=== PATIENT | male | born 1945 | race Caucasian/White ===

== ENCOUNTER 2019-12-11 23:04 | Emergency (ER) | payer OTHER, MEDICARE, SELFPAY ==
[2019-12-11 23:08] VITALS: BP 169/104; PULSE 82; RESP 20; TEMP 36.3; O2SAT 96; BMI 42.5
--- NOTE | 2019-12-11 23:42 | W.ED.EXTPRO ---
HPI - Extremity Problem General: Chief complaint: Extremity Problem,Nontraumatic Stated complaint: right leg pain Time Seen by Provider: 12/11/19 23:41 History of Present Illness: HPI Narrative: Patient is a 74-year-old male who comes into the ED with right calf pain and swelling. Patient has a past medical history of A. fib, diabetes, hypertension, hypothyroidism and and hypercholesteremia. Right calf pain and swelling started tonight. He says that the pain is just gotten worse in his right calf and the swelling has gotten worse. Patient describes his right calf is been really tight feeling. Patient does take Xarelto for A. fib. He does not have any history of DVTs or PE. Denies any recent injury or fall to cause any right leg pain. He denies any acute shortness of breath, but says chronically he has had some shortness of breath on exertion. Patient also states that he recently was diagnosed with a UTI and is currently taking Bactrim for his UTI. Associated symptoms: Deny chest pain, fever(s) or rash Review of Systems Const: Denies: fever, chills or fatigue Eyes: Denies: change in vision or eye discomfort ENMT: Denies: throat pain, painful swallowing, nasal discharge or nasal congestion Card: Reports: irregular heart rhythm and shortness of breath on exertion (chronic issue, no acute change.); Denies: chest pain, palpitations, edema, swelling of feet/ankles or shortness of breath when lying down Resp: Denies: shortness of breath, productive cough or non-productive cough GI: Denies: abdominal pain, nausea, vomiting, diarrhea, constipation or blood in stool : Reports: blood in urine (started about 3 days ago-currently taking bactrim for UTI.); Denies: flank pain, difficulty urinating or painful urination Musc: Reports: extremity pain (Right calf) and extremity swelling (right calf); Denies: neck pain or back pain Skin/Breast: Denies: rash or new lesion Neuro: Denies: headache, numbness in extremities or weakness in extremities PFS ED PFSH: Social History Smoking and tobacco status: never smoked Physical Exam Narrative: EXAM NARRATIVE: Patient is a 74-year-old male who is sitting comfortably in exam bed when I enter the room. He is showing no acute signs of distress or pain. Const: COMMON NORMALS: oriented x3 HENMT: COMMON NORMALS: normocephalic HEAD & SCALP: normocephalic MOUTH: oral and palatal mucosa normal THROAT: posterior oropharynx normal and uvula midline Neck/C-Spine: COMMON NORMALS: supple GENERAL: Yes normal visual inspection Resp: COMMON NORMALS: normal respiratory effort, no retractions, no use of accessory muscles and clear to auscultation bilaterally AUSCULTATION: clear to auscultation bilaterally Cardio: COMMON NORMALS: regular rate, S1 normal heart sound, S2 normal heart sound, no gallops, no clicks and no murmurs RATE: regular rate RHYTHM: abnormal rhythm irregularly irregular HEART SOUNDS: S1 normal and S2 normal PERIPHERAL PULSES: radial pulses present and posterior tibial pulses present positive right 1+ GI: COMMON NORMALS: normal to inspection, nondistended, normoactive bowel sounds, soft to palpation, non-tender and no masses PALPATION: Yes soft : COMMON NORMALS: Yes no CVA tenderness BLADDER/KIDNEY EXAM: Yes no CVA tenderness Back/Pelvis: COMMON NORMALS: no CVA tenderness Extremity: RIGHT LOWER EXTREMITY: Yes lower leg (1+ pitting edema starting around ankle and going up to mid calf) Right lower leg: Yes inspection (swelling around calf), Yes palpation (tender around calf) and Yes neurovascular exam (intact. posterior tibial pulse 1+) OTHER: Patient's right calf muscle is tight and tense and firm. Neuro: COMMON NORMALS: oriented x3 and moves all extremities Skin: COMMON NORMALS: no rashes or lesions noted GENERAL SKIN EXAM: no rashes or lesions noted and dry skin Course Vital Signs: Vital signs: Vital Signs Temperature 97.4 F L 12/11/19 23:08 Pulse Rate 70 12/12/19 01:48 Respiratory Rate 20 H 12/11/19 23:08 Blood Pressure 144/95 12/12/19 01:48 Pulse Oximetry 94 12/12/19 01:48 MDM - Extremity (Nontraumatic) MDM Narrative: Medical decision making narrative: Patient is a 74-year-old male who comes into the ED with right calf pain and swelling. Ultrasound venous duplex of the right leg was performed and showed no DVT or blood clots. Physical exam showed very firm and tight calf muscle. Patient was diagnosed with a muscle cramp and was given Norflex while here in the ED. He was discharged and told to stretch calf muscle daily and to put ice on right calf to help with swelling and pain. Patient was also told to drink fluids and stay hydrated. He was told to follow-up with PCP in 5 to 7 days for reevaluation. Patient understood with and agreed with plan. Imaging Data^: US Vascular: Attestation: I personally reviewed and interpreted this imaging study as follows: Radiologist's impression: Prelim report?no DVTs or blood clots seen. All veins are compressible and patent Discharge Plan Discharge Patient Disposition: Home, Self-Care Clinical Impression: Cramp in muscle Condition: Stable Prescriptions: No Action Synthroid 137 mcg Tablet 137 mcg PO DAILY RF: 0 metoprolol tartrate 100 mg Tablet 100 mg PO BID RF: 0 Bactrim DS 800-160 mg Tablet 1 tab PO BID RF: 0 simvastatin 40 mg Tablet 40 mg PO DAILY RF: 0 modafinil 200 mg Tablet 200 mg PO DAILY RF: 0 amiodarone 400 mg Tablet 400 mg PO BID RF: 0 tamsulosin 0.4 mg Capsule 0.4 mg PO DAILY RF: 0 pantoprazole 40 mg Tablet,Delayed Release (Dr/Ec) 40 mg PO BID RF: 0 Vitamin D3 50 mcg (2,000 unit) Capsule 2,000 unit PO DAILY RF: 0 Xarelto 20 mg Tablet 20 mg PO DAILY RF: 0 Ozempic 1 mg/dose (2 mg/1.5 mL) Pen Injector 1 mg SUBCUT DIRECTED RF: 0 Discharge Orders: Discharge Order (Routine); Ordered 12/12/19 Ordered By: Colin Henderson Referrals: Emil Oliveira DO [Primary Care Provider] - Discharge Diet: Regular Discharge Activity: Increase activity as tolerated Patient Instructions: Muscle Cramp (ED) Activity Restrictions/Additional Instructions: Follow-up with your PCP in 7 days for reevaluation. Apply ice on your right calf and/or heat to help with discomfort. Stretch out calf muscles throughout the day. Drink plenty of fluids and stay hydrated. You can also take any ibuprofen or naproxen to help with any pain and inflammation. Discharge Date/Time: 12/12/19 02:06 Coding Level of Care Code ED Pot Press Operator for Matt Fwmartell Exam Comprehensive
--- NOTE | 2019-12-11 23:47 | PC.NURSE ---
Right Calf - 17.5 inches; Left Calf 16.5 inches
[2019-12-12] MEDS: orphenadrine 30 mg/mL Inj 2 mL 60 MG IM (01:43)
[2019-12-12 01:48] VITALS: BP 144/95; PULSE 70; O2SAT 94
== END 2019-12-12 02:06 | disposition home or self-care (01) ==
PROVIDERS: Emergency Provider Physician Assistant; Family Provider Emergency Medicine Emergency Medical Services; PCP Emergency Medicine Emergency Medical Services
DX: R25.2 Cramp and spasm (principal); I48.91 Unspecified atrial fibrillation; E11.9 Type 2 diabetes mellitus without complications; I10 Essential (primary) hypertension; E03.9 Hypothyroidism, unspecified; E78.00 Pure hypercholesterolemia, unspecified; Z79.01 Long term (current) use of anticoagulants
CPT/HCPCS: 12345; 96372; 99281; 99283; J2360

== ENCOUNTER 2020-03-12 11:16 | Outpatient (CLI) | payer OTHER, MEDICARE, SELFPAY ==
--- NOTE | 2020-03-12 11:26 | US_ITS ---
WS: [id number] RENAL ULTRASOUND HISTORY: CHRONIC KIDNEY DZ STAGE 3 COMPARISON: None available. TECHNIQUE: 2-D and color Doppler imaging of the kidney submitted. Right kidney: 13.5 cm x 6.2 cm x 5.7 cm. Normal size kidney. Normal renal cortex. Cortical cyst with a maximum diameter of 1.8 cm in the mid t o inferior kidney. No hydronephrosis. Left kidney: 13.6 cm x 7.2 cm x 5.2 cm. Normal size kidney and echogenicity. Simple cyst from the superior pole measures 5.7 x 3.2 x 5.3 cm. Simple cyst from the inferior kidney measures 5.3 x 4.8 x 5.1 cm. There is a small solid exophytic no dule from the mid kidney measuring 2.5 x 2.5 x 2.6 cm. Aorta: Normal. Urinary Bladder: Urinary bladder is minimally distended. There is a linear line to the bladder which may be related to the patient's prostate implant. US/US renal BI* [id number] IMPRESSION: 1. No hydronephrosis or renal obstruction. 2. LEFT renal cysts. 3. Indeterminate for soft tissue mass from the mid LEFT kidney measuring 2.5 x 2.5 x 2.6 cm. Consider follow-up renal mass CT protocol for further evaluation .
== END 2020-03-12 11:17 | disposition home or self-care (01) ==
LOC: RAD 11:22
PROVIDERS: PCP Emergency Medicine Emergency Medical Services; Visit Provider Registered Nurse
DX: N18.3 Chronic kidney disease, stage 3 (moderate) (principal); Q61.02 Congenital multiple renal cysts; N28.89 Other specified disorders of kidney and ureter
CPT/HCPCS: 76770

== ENCOUNTER 2020-04-22 18:26 | Emergency (ER) | payer MEDICARE, OTHER, SELFPAY ==
[2020-04-22 18:33] VITALS: BP 139/95; PULSE 83; RESP 16; TEMP 36.4; O2SAT 95; BMI 45.6
--- NOTE | 2020-04-22 18:43 | ED_ITS ---
HPI - Extremity Problem General: Chief complaint: Extremity Injury, Lower Stated complaint: R foot/ankle injury Time Seen by Provider: 04/22/20 18:43 History of Present Illness: HPI Narrative: Patient is a 74-year-old male who comes to the ED with right foot/ankle pain and left hand pain. Injury occurred on Thursday, when patient was walking down a hill and rolled his right foot and ankle causing him go down to the ground and he caught himself with his left hand. He currently rates his right foot and ankle pain an 8 out of 10. He also has some pain in his third digit of left hand. Patient has been taking Tylenol and ibuprofen to help with pain, but it has been helped minimally. He has also iced and elevated his right foot as well. He endorses having pain with any weightbearing Associated symptoms: Deny chest pain, fever(s) or rash Review of Systems Const: Denies: fever(s), chills or fatigue Eyes: Denies: change in vision or eye discomfort ENMT: Denies: throat pain, odynophagia, nasal discharge or nasal congestion Card: Denies: chest pain, palpitations, edema, swelling of feet/ankles, dyspnea on exertion or orthopnea Resp: Denies: dyspnea, productive cough or non-productive cough GI: Denies: abdominal pain, nausea, vomiting, diarrhea, constipation or hematochezia : Denies: flank pain, difficulty urinating, dysuria or hematuria Musc: Reports: extremity pain (Left hand and Right foot and ankle) and extremity swelling (Left hand and right foot/ankle.); Denies: neck pain or back pain Skin/Breast: Denies: rash or new lesions Neuro: Denies: headache(s), numbness in extremities or weakness in extremities [facility] PFSH: Social History Smoking and tobacco status: never smoked Alcohol intake: never Substance/Drug Use: never Physical Exam Const: COMMON NORMALS: no acute distress, patient oriented x3 and alert GENERAL APPEARANCE: cooperative and comfortable NUTRITIONAL APPEARANCE: overweight HENMT: COMMON NORMALS: normocephalic HEAD & SCALP: normocephalic MOUTH: Normal oral and palatal mucosa present THROAT: posterior oropharynx normal and uvula midline Neck/C-Spine: COMMON NORMALS: supple GENERAL: Yes normal visual inspection Resp: COMMON NORMALS: normal respiratory effort, No retractions, No use of accessory muscles and clear to auscultation bilaterally AUSCULTATION: clear to auscultation bilaterally Cardio: COMMON NORMALS: regular rate, regular rhythm, S1 normal heart sound present, S2 normal heart sound present, No gallops present (Cardio), No clicks present (Cardio), No murmurs present (Cardio) and Peripheral pulses 2+ throughout RATE: regular rate RHYTHM: regular rhythm HEART SOUNDS: S1 normal heart sound present and S2 normal heart sound present PERIPHERAL PULSES: Peripheral pulses 2+ throughout GI: COMMON NORMALS: Normal to inspection, nondistended, normoactive bowel sounds present, Soft to palpation, non-tender and no masses PALPATION: Yes Soft to palpation : COMMON NORMALS: Yes no CVA tenderness BLADDER/KIDNEY EXAM: Yes no CVA tenderness Back/Pelvis: COMMON NORMALS: no CVA tenderness Extremity: LEFT UPPER EXTREMITY: Yes hand & digits Left hand and digits: Yes inspection (Mild swelling at DIP joint of third digit. ), Yes palpation (Tender at DIP joint of third digit.), Yes ROM (Limited due to pain) and Yes neurovascular exam (Intact) RIGHT LOWER EXTREMITY: Yes foot & digits Right ankle: Yes inspection (No visible deformity but swelling and ecchymosis seen around both lateral and medial sides of the ankle.), Yes palpation (Mild tenderness on the lateral aspect of ankle.), Yes ROM (Limited due to pain) and Yes neurovascular exam (Intact) and Yes foot & digits Right foot and digits: Yes inspection (Swelling and ecchymosis around the midfoot.), Yes palpation (Tenderness upon palpation over midfoot.) and Yes neurovascular exam (Intact) Neuro: COMMON NORMALS: patient oriented x3 and moves all extremities SENSORIUM/ORIENTATION: Yes alert Skin: COMMON NORMALS: no rashes or lesions noted GENERAL SKIN EXAM: no rashes or lesions noted and dry skin Course Vital Signs: Vital signs: Vital Signs Temperature 97.6 F 04/22/20 18:33 Pulse Rate 81 04/22/20 20:20 Respiratory Rate 16 04/22/20 20:20 Blood Pressure 143/96 04/22/20 20:20 Pulse Oximetry 94 04/22/20 20:20 MDM - Extremity (Nontraumatic) MDM Narrative: Medical decision making narrative: Patient is a 74-year-old male who comes to the ED with right foot and ankle pain and left hand pain. Exam showed swelling in the right foot and tenderness upon palpation of the lateral and medial aspect of ankle and foot. Patient had tenderness of DIP joint and third digit of left hand. X-ray of left hand showed no acute fractures or findings pending final radiology report. X-ray of right ankle and foot showed distal fibula fracture nondisplaced and medial malleolus tibial fracture nondisplaced. Patient was put in a posterior leg splint with stirrups. He was given crutches and a prescription for hydrocodone for pain. Referral to Ortho was placed with case management. Patient told to [id number] and to follow-up with Ortho at future future scheduled appointment. Return to ED if symptoms worsen. Patient understood and agreed with plan. Imaging Data^: Xray Ortho: Attestation: I personally reviewed and interpreted this imaging study as follows: My impression: Left hand x-ray showed no acute fractures or findings. Right foot and ankle x-ray showed distal fibula fracture nondisplaced and nondisplaced medial malleolus fracture of tibia. Discharge Plan Discharge Patient Disposition: Home, Self-Care Clinical Impression: Fracture of distal end of right fibula Qualifiers: Encounter type: initial encounter Fracture type: closed Fracture morphology: other fracture Qualified Code(s): S82.831A - Other fracture of upper and lower end of right fibula, initial encounter for closed fracture Fracture of medial malleolus of right tibia Qualifiers: Encounter type: initial encounter Fracture type: closed Fracture alignment: nondisplaced Qualified Code(s): S82.54XA - Nondisplaced fracture of medial malleolus of right tibia, initial encounter for closed fracture Condition: Stable Prescriptions: No Action Synthroid 137 mcg Tablet 137 mcg PO DAILY RF: 0 metoprolol tartrate 100 mg Tablet 100 mg PO BID RF: 0 Bactrim DS 800-160 mg Tablet 1 tab PO BID RF: 0 simvastatin 40 mg Tablet 40 mg PO DAILY RF: 0 modafinil 200 mg Tablet 200 mg PO DAILY RF: 0 amiodarone 400 mg Tablet 400 mg PO BID RF: 0 tamsulosin 0.4 mg Capsule 0.4 mg PO DAILY RF: 0 pantoprazole 40 mg Tablet,Delayed Release (Dr/Ec) 40 mg PO BID RF: 0 Vitamin D3 50 mcg (2,000 unit) Capsule 2,000 unit PO DAILY RF: 0 Xarelto 20 mg Tablet 20 mg PO DAILY RF: 0 Ozempic 1 mg/dose (2 mg/1.5 mL) Pen Injector 1 mg SUBCUT DIRECTED RF: 0 Discharge Orders: Discharge Order (Routine); Ordered 04/22/20 Ordered By: Colin Henderson Referrals: Emil Oliveira DO [Primary Care Provider] - Discharge Diet: Regular Discharge Activity: Limit activity as instructed and Use walker/crutches as instructed Patient Instructions: Ankle Fracture (ED) Activity Restrictions/Additional Instructions: Follow-up with medical provider as directed. Case management should be contacting you in the next several days to set up an appointment with specialist for further evaluation. Take pain medications as prescribed. No weightbearing and use crutches to help with ambulation. Rest, ice and elevate right ankle. Return to the ER or your medical provider if condition worsens. Please read and understand discharge instructions. If any questions, please ask. Discharge Date/Time: 04/22/20 20:00 Coding Level of Care Code ED Retail Service Specialist for Matt 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
[2020-04-22 18:48] VITALS: BP 142/96; PULSE 83; RESP 20; O2SAT 95
--- NOTE | 2020-04-22 18:48 | XRR_ITS ---
PROCEDURE INFORMATION: Exam: XR Right Foot Complete Exam date and time: 04/22/2020 6:50 PM Age: 74 years old Clinical indication: Injury or trauma; Fall; Initial encounter; Blunt trauma; Foot; Right; Additional info: Injury with swelling and pain TECHNIQUE: Imaging protocol: XR Right foot. Views: 3 or more views. COMPARISON: No relevant prior studies available. FINDINGS: Bones/joints: Small calcaneus spur. The bones are intact and in normal alignment. Mild degenerative changes. Soft tissues: Mild dorsal soft tissue swelling. Vasculature: Vascular calcifications. XR/XR foot RT min 3V* [id number] IMPRESSION: No fracture or acute finding.
--- NOTE | 2020-04-22 18:48 | XRR_ITS ---
PROCEDURE INFORMATION: Exam: XR Left Hand Exam date and time: 04/22/2020 6:50 PM Age: 74 years old Clinical indication: Injury or trauma; Fall; Initial encounter; Blunt trauma (contusions or hematomas; Left; Middle finger; Additional info: Injury with swelling and tenderness 3rd digit TECHNIQUE: Imaging protocol: XR Left hand. Views: 3 or more views. COMPARISON: No relevant prior studies available. FINDINGS: Bones/joints: The bones are intact and in normal alignment. Degenerative changes involving the radiocarpal, 1st carpometacarpal, 1st metacarpophalangeal, and all interphalangeal joints. Soft tissues: Normal. XR/XR hand LT min 3V* [id number] IMPRESSION: 1. No fracture or acute finding. 2. Osteoarthritis.
--- NOTE | 2020-04-22 18:48 | XRR_ITS ---
PROCEDURE INFORMATION: Exam: XR Right Ankle Exam date and time: 04/22/2020 6:50 PM Age: 74 years old Clinical indication: Injury or trauma; Fall; Initial encounter; Blunt trauma; Ankle; Right; Additional info: Injury with swelling and tenderness. TECHNIQUE: Imaging protocol: XR Right ankle. Views: 3 or more views. COMPARISON: No relevant prior studies available. FINDINGS: Bones/joints: Oblique mildly displaced fracture through the distal diaphysis of the right fibula. Mildly displaced transverse fracture through the medial malleolus. Soft tissues: Circumferential soft tissue swelling. Vasculature: Vascular calcifications. XR/XR ankle RT min 3V* [id number] IMPRESSION: 1. Bimalleolar right ankle fracture.
[2020-04-22] MEDS: HYDROcodone-acetaminophen 7.5-325 mg Tablet 1 TAB PO ×2 (18:54→20:15)
[2020-04-22 19:34] VITALS: BP 139/95; PULSE 87; RESP 16; O2SAT 95
[2020-04-22 20:20] VITALS: BP 143/96; PULSE 81; RESP 16; O2SAT 94
--- NOTE | 2020-04-23 08:43 | DCPLANNER ---
it infrastructure manager had message to schedule a follow up appointment for patient with ortho. it infrastructure manager called the ortho clinic, spoke with Nadia, gave clinic patients information. it infrastructure manager was told that patients information would be printed and reviewed. Clinic will call patient with appointment information.
--- NOTE | 2020-04-24 12:18 | DCPLANNER ---
Patient had a follow up appointment scheduled for 04.24.20 with ortho. Patient did attend the appointment.
== END 2020-04-22 20:00 | disposition home or self-care (01) ==
PROVIDERS: Emergency Provider Physician Assistant; PCP Emergency Medicine Emergency Medical Services
DX: S82.54XA Nondisplaced fracture of medial malleolus of right tibia, initial encounter for closed fracture (principal); S82.831A Other fracture of upper and lower end of right fibula, initial encounter for closed fracture; X50.1XXA Overexertion from prolonged static or awkward postures, initial encounter
CPT/HCPCS: 12345; 73130; 73610; 73630; 99282; 99283; E0114

== ENCOUNTER → 2020-04-24 08:31 | Outpatient (BNVA) | payer MEDICARE, OTHER, SELFPAY | PROVIDERS: PCP Emergency Medicine Emergency Medical Services; Referring Provider Physician Assistant; Visit Provider Podiatrist Foot & Ankle Surgery | DX: S82.54XA Nondisplaced fracture of medial malleolus of right tibia, initial encounter for closed fracture (principal); S82.831A Other fracture of upper and lower end of right fibula, initial encounter for closed fracture; W17.81XA Fall down embankment (hill), initial encounter; M17.11 Unilateral primary osteoarthritis, right knee | CPT/HCPCS: 73590; 73610 ==

== ENCOUNTER 2020-04-24 10:41 | Outpatient (CLI) | payer MEDICARE, OTHER, SELFPAY | END 2020-04-24 10:42 | disposition home or self-care (01) | LOC: SPT 10:42 | PROVIDERS: PCP Emergency Medicine Emergency Medical Services; Visit Provider Podiatrist Foot & Ankle Surgery | DX: Z47.89 Encounter for other orthopedic aftercare (principal); S82.54XD Nondisplaced fracture of medial malleolus of right tibia, subsequent encounter for closed fracture with routine healing; S82.831D Other fracture of upper and lower end of right fibula, subsequent encounter for closed fracture with routine healing; X58.XXXD Exposure to other specified factors, subsequent encounter; S82.54XA Nondisplaced fracture of medial malleolus of right tibia, initial encounter for closed fracture; S82.831A Other fracture of upper and lower end of right fibula, initial encounter for closed fracture; W17.81XA Fall down embankment (hill), initial encounter; M17.11 Unilateral primary osteoarthritis, right knee | CPT/HCPCS: 73590; 73610; 97760; L4361 ==

== ENCOUNTER → 2020-05-07 08:03 | Outpatient (BNVA) | payer MEDICARE, OTHER, SELFPAY | PROVIDERS: PCP Emergency Medicine Emergency Medical Services; Visit Provider Podiatrist Foot & Ankle Surgery | DX: S82.54XA Nondisplaced fracture of medial malleolus of right tibia, initial encounter for closed fracture (principal); S82.831A Other fracture of upper and lower end of right fibula, initial encounter for closed fracture; X58.XXXA Exposure to other specified factors, initial encounter | CPT/HCPCS: 73610 ==

== ENCOUNTER 2020-05-08 12:25 | Outpatient (CLI) | payer MEDICARE, OTHER, SELFPAY ==
--- NOTE | 2020-05-08 12:30 | CT_ITS ---
WS: [id number] CT ABDOMEN TECHNIQUE: Noncontrast CT of the abdomen with coronal and sagittal reformatted images. CLINICAL INFORMATION: CKD STAGE 3, ABNORMAL US COMPARISON: None. DLP: 866.[address] scans at [facility] use at least one of these dose optimization techniques: automat ed exposure control; mA and/or kV adjustment per patient size (includes targeted exams where dose is matched to clinical indication); or iterative reconstruction. FINDINGS: Noncontrast liver is normal. A few low-attenuation lesions in the liver some too small to characteriz e but likely represent hepatic cysts. Gallbladder is contracted. Normal GE junction. Slight atelectas is in the lung bases. Adrenal glands are normal. Left renal cysts measuring 5.2 x 5.7 CM upper pole a nd 4.3 x 4.2 cm lower pole. No hydronephrosis in either kidney. Additional exophytic lesion mid pole measuring 1.7 x 2.1 cm corresponds to the ultrasound findings with Hounsfield units indicating renal cyst. Fatty atrophy of the pancreas. Normal caliber abdominal aorta. Aortic calcification. Fat-containing umbilical hernia. No herniated f at. 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 CT/CT abdomen wo con [id number] IMPRESSION: 1. Left upper pole and lower pole renal cysts measuring 5.2 x 5.7 cm and 4.2 x 4.3 cm. 2. Exophytic lesion mid pole left kidney appears to represent renal cyst corre sponding to the ultrasound lesion. 3. Low-attenuation lesions in the liver too small to characterize and likely r epresent hepatic cysts. 4. No hydronephrosis in either kidney.Bilateral renal cortical atrophy. 5. Fat-containing umbilical hernia. 6. 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
== END 2020-05-08 12:26 | disposition home or self-care (01) ==
LOC: RADWPI 12:29
PROVIDERS: PCP Emergency Medicine Emergency Medical Services; Visit Provider Internal Medicine Nephrology
DX: N18.3 Chronic kidney disease, stage 3 (moderate) (principal); R93.89 Abnormal findings on diagnostic imaging of other specified body structures; N28.1 Cyst of kidney, acquired; K42.9 Umbilical hernia without obstruction or gangrene; N28.9 Disorder of kidney and ureter, unspecified; M47.817 Spondylosis without myelopathy or radiculopathy, lumbosacral region; N26.1 Atrophy of kidney (terminal)
CPT/HCPCS: 74150

== ENCOUNTER → 2020-05-21 15:48 | Outpatient (BNVA) | payer MEDICARE, OTHER, SELFPAY | PROVIDERS: PCP Emergency Medicine Emergency Medical Services; Visit Provider Podiatrist Foot & Ankle Surgery | DX: S82.54XA Nondisplaced fracture of medial malleolus of right tibia, initial encounter for closed fracture (principal); S82.831A Other fracture of upper and lower end of right fibula, initial encounter for closed fracture; X58.XXXA Exposure to other specified factors, initial encounter | CPT/HCPCS: 73610 ==

== ENCOUNTER → 2020-06-06 08:10 | Outpatient (BNVA) | payer MEDICARE, OTHER, SELFPAY | PROVIDERS: PCP Emergency Medicine Emergency Medical Services; Visit Provider Podiatrist Foot & Ankle Surgery | DX: S82.831D Other fracture of upper and lower end of right fibula, subsequent encounter for closed fracture with routine healing (principal); X58.XXXD Exposure to other specified factors, subsequent encounter; Z46.89 Encounter for fitting and adjustment of other specified devices | CPT/HCPCS: 73610; 97760; L1902 ==

== ENCOUNTER 2020-06-06 09:28 | Outpatient (CLI) | payer MEDICARE, OTHER, SELFPAY | END 2020-06-06 09:29 | disposition home or self-care (01) | LOC: SPT 09:29 | PROVIDERS: PCP Emergency Medicine Emergency Medical Services; Visit Provider Podiatrist Foot & Ankle Surgery | DX: Z46.89 Encounter for fitting and adjustment of other specified devices (principal); S82.831D Other fracture of upper and lower end of right fibula, subsequent encounter for closed fracture with routine healing; X58.XXXD Exposure to other specified factors, subsequent encounter | CPT/HCPCS: 97760; L1902 ==

== ENCOUNTER → 2020-07-04 11:29 | Outpatient (BNVA) | payer MEDICARE, OTHER, SELFPAY | PROVIDERS: PCP Emergency Medicine Emergency Medical Services; Visit Provider Podiatrist Foot & Ankle Surgery | DX: S82.54XA Nondisplaced fracture of medial malleolus of right tibia, initial encounter for closed fracture (principal); S82.831A Other fracture of upper and lower end of right fibula, initial encounter for closed fracture; M79.604 Pain in right leg; S82.831D Other fracture of upper and lower end of right fibula, subsequent encounter for closed fracture with routine healing | CPT/HCPCS: 73610 ==

== ENCOUNTER → 2020-07-17 16:05 | Outpatient (BNVA) | payer OTHER, MEDICARE, SELFPAY | PROVIDERS: PCP Emergency Medicine Emergency Medical Services; Visit Provider Internal Medicine Cardiovascular Disease | DX: R06.02 Shortness of breath (principal); Z79.01 Long term (current) use of anticoagulants; E03.9 Hypothyroidism, unspecified; N18.9 Chronic kidney disease, unspecified | CPT/HCPCS: 80048; 83880; 84443; 85025 ==

== ENCOUNTER 2020-08-14 06:45 | Outpatient (CLI) | payer OTHER, SELFPAY ==
--- NOTE | 2020-08-14 07:15 | USCV_ITS ---
Raoul Lupillo Age: 74 Gender: M : 1945 Exam Date: 08/14/2020 06:47 Ordering Phys: Jaylyn Chase MD ([email or web address]) Technologist: Juarez Bravo Exam Location: [facility] – [place], [place] Indication: CHF BP: / HR: 81 Rhythm: Sinus Technical Quality: Fair MEASUREMENTS (Male / Female) Normal Values 2D ECHO LV Diastolic Diameter PLAX 5.0 cm 4.2 - 5.9 / 3.9 - 5.3 cm LV Systolic Diameter PLAX 2.9 cm IVS Diastolic Thickness 1.3 cm 0.6 - 1.0 / 0.6 - 0.9 cm IVS Systolic Thickness 1.6 cm LVPW Diastolic Thickness 1.2 cm 0.6 - 1.0 / 0.6 - 0.9 cm LVPW Systolic Thickness 1.6 cm LVOT Diameter 3.0 cm LV Ejection Fraction 2D Teich 72.6 % LV Ejection Fraction MOD 2C 57.2 % LV Ejection Fraction 2C AL 58.1 % LA Diameter 5.8 cm LA Width 5.5 cm LA Height 7.1 cm RA Width 5.5 cm RA Height 5.6 cm M-MODE LV Diastolic Diameter MM 7.6 cm 4.2 - 5.9 / 3.9 - 5.3 cm LV Systolic Diameter MM 5.3 cm LV Ejection Fraction MM Teich 55.6 % IVS Diastolic Thickness MM 1.5 cm 0.6 - 1.0 / 0.6 - 0.9 cm IVS Systolic Thickness MM 1.8 cm LVPW Diastolic Thickness MM 1.6 cm 0.6 - 1.0 / 0.6 - 0.9 cm LVPW Systolic Thickness MM 2.4 cm RV Diastolic Diameter MM 2.5 cm Aortic Annulus Diameter 4.3 cm LA Ao Ratio MM 1.5 MV E Point Septal Separation 2.4 cm DOPPLER AV Peak Velocity 119.0 cm/s LVOT Peak Velocity 82.0 cm/s AV Area Cont Eq vti 3.7 cm squared AV Area Cont Eq pk 5.0 cm squared MV Area PHT 5.0 cm squared Mitral E to A Ratio 1.9 MV E' Velocity 56.5 cm/s Mitral E to MV E' Ratio 11.0 Mitral E to LV E' Lateral Ratio 11.2 Mitral E to LV E' Septal Ratio 11.0 TR Peak Velocity 191.0 cm/s TR Peak Gradient 14.6 mmHg TV Peak E Velocity 78.0 cm/s Right Atrial Pressure 3.0 mmHg Pulmonary Artery Systolic Pressu 17.6 mmHg PV Peak Velocity 111.0 cm/s FINDINGS Left Ventricle Normal left ventricular size with a slightly diminished ejection fraction of 50%. Mild diffuse hypokinesia left ventricle. Right Ventricle Normal right ventricular size and systolic function. Right Atrium Mildly increased right atrial size. Left Atrium Mildly increased left atrial size. Mild biatrial enlargement Mitral Valve Thickened mitral valve. Trace mitral valve regurgitation. Aortic Valve Thickened aortic valve. Mild aortic valve regurgitation. Tricuspid Valve No gross abnormalities noted Pulmonic Valve Pulmonic valve not well visualized. Pericardium No pericardial effusion. Aorta Normal aortic annulus size. CONCLUSIONS Normal left ventricular size with a slightly diminished ejection fraction of 50%. Mild diffuse hypokinesia left ventricle. Thickened mitral valve. Trace mitral valve regurgitation. Thickened aortic valve. Mild aortic valve regurgitation. Mild biatrial enlargement Estimated pulmonary artery peak systolic pressure of 18 mmHg There is no pericardial effusion. There are no intracardiac masses. Comparison with the previous study is difficult because of the difference in the technical quality Dr Jaylyn Chase MD [facility] (Electronically Signed) Final Date: 14 August 2020 17:24 S
== END 2020-08-14 06:46 | disposition home or self-care (01) ==
LOC: RAD 06:48
PROVIDERS: PCP Emergency Medicine Emergency Medical Services; Visit Provider Internal Medicine Cardiovascular Disease
DX: I50.9 Heart failure, unspecified (principal); I08.0 Rheumatic disorders of both mitral and aortic valves
CPT/HCPCS: 93306

== ENCOUNTER 2020-09-07 17:43 | Emergency (ER) | payer OTHER, MEDICARE, SELFPAY ==
[2020-09-07 18:02] VITALS: BP 120/83; PULSE 93; RESP 20; TEMP 36.4; O2SAT 95; BMI 45.6
--- NOTE | 2020-09-07 19:04 | XRR_ITS ---
PROCEDURE INFORMATION: Exam: XR Chest, 1 View Exam date and time: 09/07/2020 7:17 PM Age: 74 years old Clinical indication: Shortness of breath; Prior surgery; Surgery type: Left shoulder; Patient HX: Covid + 09/03; Additional info: SOB TECHNIQUE: Imaging protocol: XR of the chest Views: 1 view. COMPARISON: CR Chest 2 views* [id number] 06/01/2019 2:28 PM FINDINGS: Lungs: Nonspecific bibasilar ground-glass opacities left greater than right is present, consistent with atelectasis, edema, or pneumonia. The pulmonary vascularity is within normal limits. The upper lobes are clear. The lungs are hyperinflated compatible probable COPD. There is unchanged linear scarring in the mid right lung. Pleural space: Unremarkable. No pleural effusion. No pneumothorax. Heart/Mediastinum: The heart is enlarged. Bones/joints: No acute abnormality. XR/XR chest 1V portable [id number] IMPRESSION: Nonspecific bibasilar ground-glass opacities left greater than right is present, consistent with atelectasis, edema, or pneumonia.
--- NOTE | 2020-09-07 19:04 | W.ED.COVID ---
HPI - COVID General: Chief Complaint: COVID symptoms Stated Complaint: COVID+ 09/03,SOB,COUGH Time Seen by Provider: 09/07/20 18:50 Triage information: Has fever, cough or shortness of breath. 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 He has experienced cough, diarrhea, shortness of breath and nausea. He has had some aches as well. No definite fever that he knows of. He became more short of breath today. He states that he uses a CPAP machine at home at night with an oxygen concentrator due to obstructive sleep apnea. His was here with him earlier, and has more severe symptoms than him, and got admitted to the hospital a bit earlier. MD complaint: known COVID positive, reported COVID exposure and has COVID symptoms Prior covid testing: yes, results known COVID 19 common symptoms: positive cough, productive cough, dyspnea, body aches, headache(s), nausea and diarrhea; negative fever(s) COVID 19 other sytmptoms: negative chest pain or confusion Onset (ago): day(s) Severity: moderate Pertinent comorbid conditions: hypertension Treatment prior to arrival: none COVID Results: No Data to Display Review of Systems Const: Reports: body aches; Denies: fever(s) Eyes: Denies: change in vision Card: Denies: chest pain Resp: Reports: dyspnea and productive cough GI: Reports: nausea and diarrhea Neuro: Reports: headache(s); Denies: confusion [facility] ED PFSH: Medical History (Updated 09/07/20 @ 22:36 by Brown Sandoval DO) Benign prostatic hyperplasia Cerebral arterial aneurysm Chronic diastolic heart failure Dyslipidemia Hyperlipidemia Hypothyroidism Intermittent atrial fibrillation Narcolepsy Shortness of breath on exertion Spontaneous hemorrhage This patient blood into the right calf muscle and had hematuria with Xarelto Surgical History History of knee surgery S/P rotator cuff repair Family History Other CAD (coronary artery disease) Cancer Hypertension Stroke Social History Smoking and tobacco status: never smoked Alcohol intake: never Physical Exam Const: GENERAL APPEARANCE: well kempt, well developed and ill appearing ORIENTATION/CONSCIOUSNESS: Yes oriented to person, Yes oriented to place and Yes oriented to time HENMT: COMMON NORMALS: normocephalic, external ears normal and Normal external nose present HEAD & SCALP: normocephalic FACE & SINUS: normal facial exam NOSE: Normal external nose present and No nasal discharge present EXTERNAL EAR: Yes external ears normal THROAT: posterior oropharynx normal; no peritonsillar mass Eye: COMMON NORMALS: Equal, round and reactive pupils present, EOMs intact bilaterally and conjunctivae normal EYELID: eyelids normal CONJUNCTIVA: Yes conjunctivae normal PUPIL: Yes Equal, round and reactive pupils present Neck/C-Spine: GENERAL: No tracheal deviation Chest: COMMONS NORMALS: normal inspection of the chest CHEST: No tenderness Resp: COMMON NORMALS: negative for clear to auscultation bilaterally EFFORT & INSPECTION: Yes tachypneic, No respiratory distress, No retractions, No uses accessory muscles and No tracheal deviation AUSCULTATION: not clear to auscultation bilaterally, rhonchi, no wheezes and lung sounds not diminished Cardio: COMMON NORMALS: regular rate RATE: regular rate HEART SOUNDS: no murmurs PERIPHERAL PULSES: radial pulses present GI: INSPECTION: No abdominal distension AUSCULTATION: No Hyperactive bowel sounds present and No Hypoactive bowel sounds present PALPATION: No Guarding due to palpation present (GI) and No Rigid due to palpation PERCUSSION: no dullness to percussion and no tympanic to percussion Neuro: SENSORIUM/ORIENTATION: Yes oriented to person, Yes oriented to place and Yes oriented to time Psych: COMMON NORMALS: mental status grossly normal APPEARANCE: Yes well kempt Skin: COMMON NORMALS: no rashes or lesions noted GENERAL SKIN EXAM: no rashes or lesions noted Course Vital Signs: Vital signs: Vital Signs Temperature 98.9 F 09/07/20 22:56 Pulse Rate 88 09/07/20 22:56 Respiratory Rate 16 09/07/20 22:56 Blood Pressure 122/78 09/07/20 22:56 Pulse Oximetry 92 09/07/20 22:56 MDM - COVID MDM Narrative: Medical decision making narrative: 74-year-old male with comorbidities presents short of breath. He has known COVID-19. He was breathing room air satting in the upper 80s to low 90s, but had a desaturation on his way into the ER room. He was placed on 3 L with great improvement in his symptoms. His chest x-ray shows mild pneumonitis. His white blood cell count is 3.8. His sodium is 132. His inflammatory markers are somewhat elevated. He is requiring oxygen at this point. He does have an oxygen concentrator at home. He was given dexamethasone. He was given the choice of going home on home oxygen, with continued dexamethasone treatment, or coming into the hospital. It was suggested that we may want to bring him into the hospital as that would be the safer option, but the patient chose to go home. Lab Data: Labs: Lab Results 09/07/20 09/07/20 09/07/20 Range/Units 20:39 20:39 20:39 WBC 3.8 L (4.0-10.0) 10^3/ uL RBC 5.32 H (4.1-5.3) 10^6/u L Hgb 15.9 (11.7-16.6) g/dL Hct 47.2 (42.0-52.0) % MCV 88.7 (80-94) fL MCH 29.9 (28.0-34.0) pg MCHC 33.7 (30.0-36.0) g/dL RDW 13.8 (12.1-15.1) % Plt Count 126 L (130-400) 10^3/c mm MPV 10.9 H (7.4-10.4) fL Neut % (Auto) 76.4 % Lymph % (Auto) 15.5 % [place] % (Auto) 5.9 % Eos % (Auto) 1.6 % Baso % (Auto) 0.3 % Neut # (Auto) 2.87 (1.8-7.7) 10^3/u L Lymph # (Auto) 0.6 L (0.8-4.8) 10^3/u L [place] # (Auto) 0.2 (0.2-0.9) 10^3/u L Eos # (Auto) 0.1 (0.0-0.8) 10^3/u L Baso # (Auto) 0.0 (0.0-0.1) 10^3/u L Nucleated RBC % (a uto) 0 % Nucleated RBCs # 0.0 /100WBC D-Dimer 0.99 H (0-0.59) ug/mIFE U Sodium 132 L (136-145) mmol/L Potassium 3.6 (3.5-5.1) mmol/L Chloride 97 L (98-107) mmol/L Carbon Dioxide 23 (22-29) mmol/L Anion Gap 15.6 (5-19) BUN 25 H (8-23) mg/dL Creatinine 1.2 (0.7-1.2) mg/dL GFR Calculation Not Reportable Glucose 106 (65-115) mg/dL Calculated Osmolal ity 279 L (285-295) mOsm/k g Lactic Acid (0.5-2.2) mmol/L Calcium 8.4 L (8.5-10.5) mg/dL Ferritin 874 H (30-400) ng/mL Total Bilirubin 1.0 (0.15-1.2) mg/dL AST 142 H (0-40) U/L ALT 146 H (0-41) U/L Alkaline Phosphata se 83 (40-130) IU/L Lactate Dehydrogen ase 281 H (135-225) U/L C-Reactive Protein 85.7 H (0.0-4.9) mg/L NT-Pro-B Natriuret Pep 840 H (0-450) pg/mL Total Protein 6.5 L (6.6-8.7) g/dL Albumin 3.7 (3.5-5.2) g/dL Globulin 2.8 (1.3-4.6) g/dL Procalcitonin 0.35 (0-0.5) ng/mL 09/07/20 Range/Units 20:39 WBC (4.0-10.0) 10^3/ uL RBC (4.1-5.3) 10^6/u L Hgb (11.7-16.6) g/dL Hct (42.0-52.0) % MCV (80-94) fL MCH (28.0-34.0) pg MCHC (30.0-36.0) g/dL RDW (12.1-15.1) % Plt Count (130-400) 10^3/c mm MPV (7.4-10.4) fL Neut % (Auto) % Lymph % (Auto) % [place] % (Auto) % Eos % (Auto) % Baso % (Auto) % Neut # (Auto) (1.8-7.7) 10^3/u L Lymph # (Auto) (0.8-4.8) 10^3/u L [place] # (Auto) (0.2-0.9) 10^3/u L Eos # (Auto) (0.0-0.8) 10^3/u L Baso # (Auto) (0.0-0.1) 10^3/u L Nucleated RBC % (a uto) % Nucleated RBCs # /100WBC D-Dimer (0-0.59) ug/mIFE U Sodium (136-145) mmol/L Potassium (3.5-5.1) mmol/L Chloride (98-107) mmol/L Carbon Dioxide (22-29) mmol/L Anion Gap (5-19) BUN (8-23) mg/dL Creatinine (0.7-1.2) mg/dL GFR Calculation Glucose (65-115) mg/dL Calculated Osmolal ity (285-295) mOsm/k g Lactic Acid 1.2 (0.5-2.2) mmol/L Calcium (8.5-10.5) mg/dL Ferritin (30-400) ng/mL Total Bilirubin (0.15-1.2) mg/dL AST (0-40) U/L ALT (0-41) U/L Alkaline Phosphata se (40-130) IU/L Lactate Dehydrogen ase (135-225) U/L C-Reactive Protein (0.0-4.9) mg/L NT-Pro-B Natriuret Pep (0-450) pg/mL Total Protein (6.6-8.7) g/dL Albumin (3.5-5.2) g/dL Globulin (1.3-4.6) g/dL Procalcitonin (0-0.5) ng/mL COVID Results: No Data to Display Discharge Plan Discharge Patient Disposition: Home Clinical Impression: Pneumonia due to 2019 novel coronavirus Condition: Stable Prescriptions: New dexamethasone 6 mg tablet 6 mg PO DAILY Qty: 5 RF: 0 doxycycline hyclate 100 mg capsule 100 mg PO BID 7 Days Qty: 14 RF: 0 albuterol sulfate 2.5 mg /3 mL (0.083 %) solution for nebulization 2.5 mg inhalation Q6H PRN (Reason: shortness of breath or wheezing) Qty: 90 RF: 0 No Action (DME) BEBETO MÉNDEZ See Rx Instructions .ROUTE .MEDSUPPLY Qty: 1 RF: 0 hydrocodone-acetaminophen [[place]] 10-325 mg tablet 1 tab PO Q6H PRN (Reason: pain) 7 Days Qty: 30 RF: 0 (DME) RAHAT reaves See Rx Instructions .Route .MEDSUPPLY Qty: 1 RF: 0 lisinopril 40 mg tablet 40 mg PO DAILY RF: 0 metoprolol tartrate 100 mg tablet 100 mg PO BID RF: 0 chlorthalidone 25 mg tablet 25 mg PO DAILY 30 Days Qty: 30 RF: 5 potassium chloride 8 mEq capsule, extended release 8 meq PO DAILY 30 Days Qty: 30 RF: 5 furosemide 40 mg tablet 40 mg PO .PRN RF: 0 potassium chloride 20 mEq tablet extended release 20 meq PO DAILY Qty: 90 RF: 3 Synthroid 137 mcg Tablet 137 mcg PO DAILY RF: 0 simvastatin 40 mg Tablet 40 mg PO DAILY RF: 0 modafinil 200 mg Tablet 200 mg PO DAILY RF: 0 pantoprazole 40 mg Tablet,Delayed Release (Dr/Ec) 40 mg PO BID RF: 0 Vitamin D3 50 mcg (2,000 unit) Capsule 2,000 unit PO DAILY RF: 0 Xarelto 20 mg Tablet 20 mg PO DAILY RF: 0 Ozempic 1 mg/dose (2 mg/1.5 mL) Pen Injector 1 mg SUBCUT DIRECTED RF: 0 tamsulosin 0.4 mg capsule 0.4 mg PO BID RF: 0 amiodarone 400 mg tablet 200 mg PO BID RF: 0 Discharge Orders: Discharge ED (Routine); Ordered 09/07/20 Ordered By: Brown Sandoval Referrals: Emil Oliveira DO [Primary Care Provider] - 1-3 days Discharge Diet: Advance as tolerated Discharge Activity: Increase activity as tolerated Patient Instructions: Viral Pneumonia (ED) Activity Restrictions/Additional Instructions: Monitor your oxygen saturation and temperature frequently. Use the nasal cannula tubing you were given with your oxygen concentrator at home on 3 L or so. Return for inability to control your temperature, worsening shortness of breath despite treatment, mental status changes, other concerning symptoms. Coding Level of Care Code ED Link And Link Knitting Machine Operator for Matt Rocha
[2020-09-07 20:50] VITALS: BP 119/79; PULSE 84; RESP 22; O2SAT 88
[2020-09-07 20:55] LABS: Basophils % 0.3 %; Eosinophils # 0.1 10^3/uL (0.0-0.8); Eosinophils % 1.6 %; Hematocrit 47.2 % (42.0-52.0); Hemoglobin 15.9 g/dL (11.7-16.6); Lymphocytes # 0.6 10^3/uL (0.8-4.8); Lymphocytes % 15.5 %; Mean Corpuscular HGB Conc 33.7 g/dL (30.0-36.0); Mean Corpuscular Hemoglobin 29.9 pg (28.0-34.0); Mean Corpuscular Volume 88.7 fL (80-94); Mean Platelet Volume 10.9 fL (7.4-10.4); Monocytes # 0.2 10^3/uL (0.2-0.9); Monocytes % 5.9 %; Neutrophils # 2.87 10^3/uL (1.8-7.7); Neutrophils % 76.4 %; Nucleated Red Blood Cells % 0 %; Platelet Count 126 10^3/cmm (130-400); Red Blood Count 5.32 10^6/uL (4.1-5.3); Red Cell Distribution Width 13.8 % (12.1-15.1); White Blood Count 3.8 10^3/uL (4.0-10.0)
--- NOTE | 2020-09-07 20:58 | PC.NURSE ---
Placed on 3L N/C fo spo2 88 - spo2 94 %
[2020-09-07 21:15] LABS: D Dimer 0.99 ug/mIFEU (0-0.59); Lactic Sepsis W/Reflex 1.2 mmol/L (0.5-2.2)
[2020-09-07 21:25] LABS: Alanine Aminotransferase 146 U/L (0-41); Albumin Level 3.7 g/dL (3.5-5.2); Alkaline Phosphatase 83 IU/L (40-130); Anion Gap 15.6 (5-19); Aspartate Amino Transferase 142 U/L (0-40); Blood Urea Nitrogen 25 mg/dL (8-23); C Reactive Protein 85.7 mg/L (0.0-4.9); Calcium 8.4 mg/dL (8.5-10.5); Carbon Dioxide 23 mmol/L (22-29); Chloride 97 mmol/L (98-107); Globulin 2.8 g/dL (1.3-4.6); Glucose 106 mg/dL (65-115); NT Pro B Type Natriuretic Pept 840 pg/mL (0-450); Osmolality Calculated 279 mOsm/kg (285-295); Potassium 3.6 mmol/L (3.5-5.1); Sodium 132 mmol/L (136-145); Total Protein 6.5 g/dL (6.6-8.7)
[2020-09-07 22:01] LABS: Procalcitonin 0.35 ng/mL (0-0.5)
[2020-09-07 22:11] LABS: Ferritin 874 ng/mL (30-400)
[2020-09-07 22:14] LABS: Lactate Dehydrogenase 281 U/L (135-225)
[2020-09-07] MEDS: dexamethasone 4 mg/mL INJ 6 MG IVP (22:19)
[2020-09-07 22:56] VITALS: BP 122/78; PULSE 88; RESP 16; TEMP 37.2; O2SAT 92
--- NOTE | 2020-09-07 23:14 | PC.NURSE ---
Left before RT came with medication
== END 2020-09-07 23:05 | disposition home or self-care (01) ==
PROVIDERS: Emergency Provider Emergency Medicine; PCP Emergency Medicine Emergency Medical Services
DX: U07.1 COVID-19 (principal); J12.89 Other viral pneumonia; I50.32 Chronic diastolic (congestive) heart failure; E78.5 Hyperlipidemia, unspecified; I48.91 Unspecified atrial fibrillation
CPT/HCPCS: 12345; 71045; 80053; 82728; 83605; 83615; 83880; 84145; 85025; 85378; 86140; 96374; 99283; J1100

== ENCOUNTER 2020-09-13 17:34 | Inpatient (IN) | payer MEDICARE, OTHER, SELFPAY ==
[2020-09-13] VITALS (9 sets, daily range): BP systolic 105–133; BP diastolic 67–94; PULSE 87–120; RESP 22–28; TEMP 36.9–37.1; O2SAT 89–96; BMI 45.6
--- NOTE | 2020-09-13 18:08 | ECG_ITS ---
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 Measurements Intervals [place] Rate: P: IL: QRS: 0 QRSD: T: 0 QT: QTc: Interpretive Statements ATRIAL FIBRILLATION WITH RVR NON SPECIFIC ST-T WAVE ABNORMALITY WARNING: DATA QUALITY MAY AFFECT INTERPRETATION Compared to ECG 06/03/2019 11:57:20 Electronically Signed On 09-13-2020 21:19:35 [facility] by Sarah Merlos M.D. [email or web address]
--- NOTE | 2020-09-13 18:08 | XR_ITS ---
WS: [id number] XR chest 1V portable [id number] REASON FOR EXAM: shortness of breath FINDINGS: Compared to the previous examination of 09/07/2020, there continues to be opacity in the left lower lydia ng although the configuration has altered. There is more the appearance of an infiltrative process at this point. There are new areas of patchy interstitial alveolar infiltrate in the right lower and mi d right lung kwon. No other interval change or new finding. XR/XR chest 1V portable [id number] IMPRESSION: Infiltrate in the left lower lung with new infiltrates developing in the right lung as above. Findings are most compatible with progression of acute/subacute pneumonitis.
[2020-09-13 18:41] LABS: ABG PCO2 29.6 mmHg (35-45); ABG PH Result 7.49 (7.35-7.45); Arterial Blood Gas Hematocrit 51.1 % (42-52); Base Excess ABG 0.4 mmol/L (-2.0-2.0); Blood Gas Allen Test Pos; Blood Gas Operator Identificat AMH; Blood Gas Sample Site Radial, left; Blood Gas Sample Type Arterial; HCO3 ABG 22.5 mmol/L (22-26); Oxygen Device NC; PO2 ABG 61.2 mmHg (80.0-100.0)
[2020-09-13 18:45] LABS: Basophils % 0.1 %; Eosinophils % 0.1 %; Hematocrit 51.2 % (42.0-52.0); Hemoglobin 16.6 g/dL (11.7-16.6); Lymphocytes # 0.7 10^3/uL (0.8-4.8); Mean Corpuscular HGB Conc 32.4 g/dL (30.0-36.0); Mean Corpuscular Hemoglobin 29.5 pg (28.0-34.0); Mean Corpuscular Volume 90.9 fL (80-94); Mean Platelet Volume 10.3 fL (7.4-10.4); Monocytes # 0.5 10^3/uL (0.2-0.9); Monocytes % 4.7 %; Neutrophils # 8.71 10^3/uL (1.8-7.7); Neutrophils % 87.5 %; Nucleated Red Blood Cells % 0 %; Platelet Count 176 10^3/cmm (130-400); Red Blood Count 5.63 10^6/uL (4.1-5.3); Red Cell Distribution Width 14.1 % (12.1-15.1)
[2020-09-13 19:09] LABS: Lactic Sepsis W/Reflex 1.8 mmol/L (0.5-2.2)
[2020-09-13 19:12] LABS: Influenza A by IFA Negative (Negative); Influenza B by IFA Negative (Negative)
[2020-09-13 19:15] LABS: Alanine Aminotransferase 134 U/L (0-41); Albumin Level 3.3 g/dL (3.5-5.2); Alkaline Phosphatase 91 IU/L (40-130); Blood Urea Nitrogen 36 mg/dL (8-23); C Reactive Protein 97.9 mg/L (0.0-4.9); Calcium 8.4 mg/dL (8.5-10.5); Carbon Dioxide 26 mmol/L (22-29); Chloride 96 mmol/L (98-107); Globulin 2.7 g/dL (1.3-4.6); Glucose 98 mg/dL (65-115); Osmolality Calculated 284 mOsm/kg (285-295); Sodium 133 mmol/L (136-145); Total Bilirubin 1.1 mg/dL (0.15-1.2)
[2020-09-13 19:16] LABS: Anion Gap 14.7 (5-19); Aspartate Amino Transferase 120 U/L (0-40); Digoxin 0.3 ng/mL (0.6-1.2); Potassium 3.7 mmol/L (3.5-5.1)
[2020-09-13 19:17] LABS: Troponin T (5th) Once 16 ng/L (0-15)
--- NOTE | 2020-09-13 20:03 | CTR_ITS ---
PROCEDURE INFORMATION: Exam: CT Angiography Chest With Contrast Exam date and time: 09/13/2020 9:19 PM Age: 74 years old Clinical indication: Shortness of breath; Patient HX: Covid +; Additional info: Concern for pe vs pneumonia TECHNIQUE: Imaging protocol: Computed tomographic angiography of the chest with intravenous contrast. 3D rendering (Not supervised by radiologist): MIP and/or 3D reconstructed images were created by the technologist. Radiation optimization: All CT scans at this facility use at least one of these dose optimization techniques: automated exposure control; mA and/or kV adjustment per patient size (includes targeted exams where dose is matched to clinical indication); or iterative reconstruction. Contrast material: VISI 320; Contrast volume: 95 ml; Contrast route: INTRAVENOUS (IV); COMPARISON: CR XR chest 1V portable [id number] 09/13/2020 6:13 PM RADIATION DOSE METRICS: Total DLP (mGy-cm): 1004.61 FINDINGS: Pulmonary arteries: There is no evidence of filling defects within the pulmonary arterial circulation to suggest pulmonary embolism. Aorta: Unremarkable. No aortic aneurysm. No aortic dissection. Lungs: There are bilateral areas of rounded and peripheral ground-glass opacity as well as some consolidation and scarring at the lung bases. These findings are consistent with the given history of COVID-19 infection. Pleural space: Unremarkable. No pneumothorax. No pleural effusion. Heart: Unremarkable. No cardiomegaly. No pericardial effusion. Lymph nodes: Unremarkable. No enlarged lymph nodes. Liver: There are multiple simple hepatic cysts. Gallbladder and bile ducts: Multiple calcified gallstones are present. Kidneys and ureters: There is a simple cyst in the left kidney. Bones/joints: There is scoliosis of the thoracic spine concave to the right. And there are moderate degenerative changes in the thoracic spine. Soft tissues: There is a Bochdalek's hernia on the right containing fat. CT/CT angio chest PE protcl [id number] IMPRESSION: 1. No evidence of pulmonary embolism. 2. Commonly reported imaging features of COVID-19 pneumonia are present. Other processes such as influenza pneumonia and organizing pneumonia, as can be seen with drug toxicity and connective tissue disease, can cause a similar imaging pattern. COMMENTS: Consistent with the [place]'s Incidental Findings Committee white paper (J Am Frank Radiol 2018): Any incidental renal lesion less than 1 cm or classified as too small to characterize, or any incidental cystic renal lesion characterized as simple-appearing, is likely benign. No follow-up imaging is recommended for these lesions per consensus recommendations based on imaging criteria. Radiation Dose CTDIVOL = (mGy): DLP = 1004.61 (mGy-cm)
--- NOTE | 2020-09-13 20:06 | P.HP_ITS ---
Providers/Chief Complaint Primary Care Provider: Emil Oliveira DO Chief Complaint: covid+/sob History of Present Illness Lupillo Silveira is a 74 year old male who was tested positive for COVID-19 on 09/03, his symptoms started 2 weeks before his COVID-19 test, he was seen in the ER a week ago, he decided to take Decadron and treat himself at home today returning with chief complaint of worsening of symptoms. Patient is stating that since his discharge he has finished doxycycline course along steroids but he is getting weaker, his cough is getting worse, he has been experiencing nausea with generalized malaise and weakness, he did not take his temperature but endorsing subjective fevers. He is denying diarrhea, dysuria, chest pain, endorsing headache. Diagnosis in the ER revealed acute hypoxic respiratory failure requiring 4 to 6 L nasal cannula oxygen supplementation, he has been given vancomycin and Zosyn, I have requested CTA chest, D-dimer, procalcitonin, BRAD, he has abnormal transaminases unfortunately not a candidate for remdesivir, patient was offered to have convalescent plasma therapy at other facility but he decided to stay at [facility]. Review of Systems Const: Reports: fever(s), chills, body aches, change in appetite, fatigue and malaise Eyes: Denies: change in vision ENMT: Reports: oral sores and dry mouth Card: Reports: irregular heart rhythm, swelling of feet/ankles and dyspnea on exertion Resp: Reports: dyspnea GI: Reports: nausea; Denies: abdominal pain : Denies: flank pain Musc: Reports: muscle cramps Skin/Breast: Reports: lesions Neuro: Reports: headache(s) and difficulty walking Psych: Reports: irritability Endo: Denies: polyuria [place]/Lymph: Denies: easy bruising All/Imm: Denies: urticaria Medications/Allergies Home Medications Medication Instructions Recorded Confirmed Last Taken Type cholecalciferol (vitamin D3) 2,000 unit PO DAILY@12/11/19 09/13/20 09/13/20 06:00 History [Vitamin D3] levothyroxine [Synthroid] 137 mcg PO DAILY@12/11/19 09/13/20 09/13/20 History modafinil 200 mg PO DAILY@12/11/19 09/13/20 09/13/20 History pantoprazole 40 mg PO BID@,18 12/11/19 09/13/20 09/13/20 06:00 History semaglutide [Ozempic] 1 mg SUBCUT Q7D 12/11/19 09/13/20 12/11/19 History simvastatin 40 mg PO DAILY@18 12/11/19 09/13/20 09/12/20 History hydrocodone 10 mg-acetaminophen 1 tab PO Q6H PRN 7 Days #30 tab 05/07/20 09/13/20 Unknown Rx 325 mg tablet tamsulosin 0.4 mg capsule 0.4 mg PO BID@,18 cap 07/17/20 09/13/20 09/13/20 06:00 History furosemide 40 mg tablet 40 mg PO .PRN tab 08/15/20 09/13/20 Unknown History lisinopril 40 mg tablet 40 mg PO DAILY@06 08/15/20 09/13/20 09/13/20 06:00 History metoprolol tartrate 100 mg tablet 100 mg PO BID@18 tab 08/15/20 09/13/20 09/13/20 06:00 History albuterol sulfate 2.5 mg INHALATION Q6H PRN #90 ml 09/07/20 09/13/20 09/13/20 Rx dexamethasone 6 mg PO DAILY #5 tab 09/07/20 09/13/20 09/12/20 Rx finished 09/12/2020 chlorthalidone 25 mg PO DAILY@06 09/13/20 09/13/20 09/13/20 06:00 History doxycycline hyclate 100 mg PO BID@,09/13/20 09/13/20 09/13/20 06:00 History potassium chloride 8 meq PO DAILY PRN 09/13/20 09/13/20 Unknown History Allergies Allergy/AdvReac Type Severity Reaction Status Date / Time tolmetin [From Tolectin] Allergy ALGY-Rash Verified 09/13/20 18:24 PFSH Acute PFSH: Medical History Atrial fibrillation status post cardioversion Benign prostatic hyperplasia Cerebral arterial aneurysm Chronic diastolic heart failure Chronic diastolic heart failure secondary to coronary artery disease Dyslipidemia Hyperlipidemia Hypertension Hypothyroidism Intermittent atrial fibrillation Narcolepsy Peripheral arterial disease Right fibular fracture Shortness of breath on exertion Spontaneous hemorrhage This patient blood into the right calf muscle and had hematuria with Xarelto Surgical History History of knee surgery S/P rotator cuff repair Family History Other CAD (coronary artery disease) Cancer Hypertension Stroke Social History (Updated 09/13/20 @ 20:48 by Susan Barahona MD) Smoking and tobacco status: never smoked Alcohol intake: never Substance/Drug Use: never Household members: spouse Housing: House Vitals/I&O/Wt Last Vital Signs Temp 98.8 F 09/13/20 17:39 Pulse 115 H 09/13/20 19:26 Resp 24 H 09/13/20 19:26 BP 133/77 09/13/20 19:26 Pulse Ox 92 09/13/20 19:26 Weight last 48 hrs Weight 136.078 kg Physical Exam Narrative: EXAM NARRATIVE: elderly male Unkempt appearance Morbid obesity Patient was saturating 92% on 4 to 6 L nasal cannula He is experiencing excessive bouts of cough Variable S1-S2 clinically looks euvolemic no murmur appreciated Diminished airflow however I am not able to appreciate any adventitious rhonchi or crackles Abdomen soft distended umbilical hernia positive, nontender bowel sound present Lower extremity no edema, Varicose veins Venous stasis dermatitis of lower extremities No edema gangrene ulcer noted of lower extremity Patient appears very irritable and lethargic EOMI, PERRLA GCS 15 no neurological deficit Data : 09/13/20 18:27 09/13/20 18:27 Micro: Microbiology 09/13/20 18:26 Blood Culture - Preliminary Blood SPECIMEN COLLECTED 09/13/20 18:27 Blood Culture - Preliminary Blood SPECIMEN COLLECTED A&P Assessment and plan (1) Sepsis: Status: Acute (2) Pneumonia due to 2019 novel coronavirus: Status: Acute (3) Acute respiratory distress: Status: Acute (4) Hypoxia: Status: Acute (5) BRAD (acute kidney injury): Status: Acute (6) Abnormal transaminases: Status: Acute Additional A&P Information Sepsis secondary to COVID-19 pneumonia Sepsis respiratory met with tachycardia, tachypnea, leukocytosis, He has history of COPD, high risk for MRSA I would add vancomycin and Zosyn get blood culture, sputum culture, will add vi tamin C and zinc supplementation, not a candidate for remdesivir due to abnormal transaminases Repeat Covid antigen test Obtain inflammatory markers Judicious use of fluids considering history of diastolic congestive heart failure Acute hypoxic respiratory failure Has history of COPD, uses BiPAP at night, at home he finished Decadron and doxycycline regimen If symptoms are worsening due to COVID-19 progression, rule out PE would request CTA and D-dimer Currently doing well on 4 to 6 L nasal cannula oxygen supplementation, he is full code BiPAP overnight, relative hypoxia on ABG at 4 L nasal cannula BRAD Clinically looks euvolemic Has history of BPH Will do bladder scan as needed Continue tamsulosin, closely monitor urine output, hold chlorthalidone and lisinopril Diastolic congestive heart failure without acute exacerbation Hold Lasix and potassium supplementation Atrial fibrillation without acute RVR EKG does show reading of heart rate 100-110 Hemodynamically stable Patient is stating that he has not taken digoxin in a long time He is not on anticoagulation because of spontaneous calf muscle bleed and hematuria Full code Cardiac diet DVT prophylaxis Heparin Attestations Medical Necessity Statement*: Anticipating stay in the hospital cross more than 2 midnights for sepsis secondary to COVID-19 progression with suspicion for superimposed bacterial pneumonia secondary to comorbid condition and high BMI he carries higher risk of mortality and morbidity Time Spent in Patient Care: (>than 50% of time spent in counselling and/or direct pt care on unit) . 45mins Coding Level of Care Code Acute Public Service Representative for g Fwd Diagnoses Sepsis A41.9 Pneumonia due to 2019 novel coronavirus U07.1; J12.89 Acute respiratory distress R06.03 Hypoxia R09.02 BRAD (acute kidney injury) N17.9 Abnormal transaminases R74.8
[2020-09-13] MEDS: guaiFENesin-codeine UDC 10 mL 5 ML PO (20:50)
[2020-09-13] MEDS: piperacillin-tazobactam 4.5 GM in sodium chloride 0.9% (plus) 50 ML IV (20:50)
--- NOTE | 2020-09-13 20:53 | ED_ITS ---
HPI - SOB/Dyspnea General: Chief Complaint: COVID symptoms Stated Complaint: covid+/sob Time Seen by Provider: 09/13/20 17:50 History of Present Illness: HPI Narrative: Patient is a 74-year-old male seen for worsening shortness of breath, cough, myalgias, dyspnea on exertion, which he states started roughly 2 weeks ago. He was diagnosed with COVID-19 roughly 1 week ago, and though his fever has subsided, he states that his cough and shortness of breath have gotten worse. He has atrial fibrillation for which he takes digoxin and CHF for which he takes furosemide. He was recently started by his primary care physician on doxycycline for suspected superimposed bacterial pneumonia. He states that despite this, symptoms have gotten worse. He normally does not wear oxygen at home but does wear BiPAP at night. On arrival, oxygen saturation was in the mid 80s on room air, and now on 6 L nasal cannula he is saturating in the low 90s. He is he admits to increased work of breathing, but denies chest pain associated with it. Review of Systems General: Reports: 10 or more systems reviewed and unremarkable except in HPI and below PFSH ED PFSH: Medical History Atrial fibrillation status post cardioversion Benign prostatic hyperplasia Cerebral arterial aneurysm Chronic diastolic heart failure Chronic diastolic heart failure secondary to coronary artery disease Dyslipidemia Hyperlipidemia Hypertension Hypothyroidism Intermittent atrial fibrillation Narcolepsy Peripheral arterial disease Right fibular fracture Shortness of breath on exertion Spontaneous hemorrhage This patient blood into the right calf muscle and had hematuria with Xarelto Surgical History History of knee surgery S/P rotator cuff repair Family History Other CAD (coronary artery disease) Cancer Hypertension Stroke Social History (Updated 09/13/20 @ 20:48 by Susan Barahona MD) Smoking and tobacco status: never smoked Alcohol intake: never Substance/Drug Use: never Household members: spouse Housing: House Physical Exam Const: COMMON NORMALS: patient oriented x3 and alert; apparent distress (Mild respiratory distress) GENERAL APPEARANCE: in distress, ill appearing and well hydrated HENMT: COMMON NORMALS: normocephalic and atraumatic HEAD & SCALP: normocephalic and atraumatic Eye: COMMON NORMALS: Equal, round and reactive pupils present, EOMs intact bilaterally and no scleral icterus PUPIL: Yes Equal, round and reactive pupils present Resp: EFFORT & INSPECTION: Yes able to speak in complete sentences, Yes tachypneic and Yes respiratory distress Cardio: COMMON NORMALS: No murmurs present (Cardio) JUGULAR VENOUS DISTENTION: JVD RATE: tachycardic RHYTHM: other (Irregularly irregular, tachycardic) GI: COMMON NORMALS: Normal to inspection, nondistended, normoactive bowel sounds present, Soft to palpation and non-tender PALPATION: Yes Soft to palpation Neuro: COMMON NORMALS: patient oriented x3 SENSORIUM/ORIENTATION: Yes alert Skin: COMMON NORMALS: no rashes or lesions noted GENERAL SKIN EXAM: no rashes or lesions noted Course Vital Signs: Vital signs: Vital Signs Temperature 98.8 F 09/13/20 17:39 Pulse Rate 104 H 09/13/20 20:43 Respiratory Rate 28 H 09/13/20 20:43 Blood Pressure 109/69 09/13/20 20:43 Pulse Oximetry 89 L 09/13/20 20:43 MDM - SOB/Dyspnea MDM Narrative: Medical decision making narrative: Patient arrives with known COVID-19 diagnosis, however timing will dictate that his symptoms should have passed by now. Chest x-ray is concerning for superimposed bacterial infection. Blood cultures were drawn and empiric antibiotics were started. Sputum culture was ordered. Given his tachycardia, increased work of breathing, and hypoxia on room air, I feel he would benefit from inpatient care. I spoke with the hospitalist to admit him in guarded but relatively stable condition. Lab Data: Labs: Lab Results 09/13/20 09/13/20 09/13/20 Range/Units 18:27 18:27 18:27 WBC 10.0 (4.0-10.0) 10^3/ uL RBC 5.63 H (4.1-5.3) 10^6/u L Hgb 16.6 (11.7-16.6) g/dL Hct 51.2 (42.0-52.0) % MCV 90.9 (80-94) fL MCH 29.5 (28.0-34.0) pg MCHC 32.4 (30.0-36.0) g/dL RDW 14.1 (12.1-15.1) % Plt Count 176 (130-400) 10^3/c mm MPV 10.3 (7.4-10.4) fL Neut % (Auto) 87.5 % Lymph % (Auto) 7.0 % [place] % (Auto) 4.7 % Eos % (Auto) 0.1 % Baso % (Auto) 0.1 % Neut # (Auto) 8.71 H (1.8-7.7) 10^3/u L Lymph # (Auto) 0.7 L (0.8-4.8) 10^3/u L [place] # (Auto) 0.5 (0.2-0.9) 10^3/u L Eos # (Auto) 0.0 (0.0-0.8) 10^3/u L Baso # (Auto) 0.0 (0.0-0.1) 10^3/u L Nucleated RBC % (a uto) 0 % Nucleated RBCs # 0.0 /100WBC Specimen Type Sample Site ABG pH (7.35-7.45) ABG pCO2 (35-45) mmHg ABG pO2 (80.0-100.0) mmH g ABG HCO3 (22-26) mmol/L ABG Base Excess (-2.0-2.0) mmol/ L Bridger Test Hematocrit (42-52) % O2 Delivery Device O2 Liters/Min % FiO2 % Intramural Director ID Sodium 133 L (136-145) mmol/L Potassium 3.7 (3.5-5.1) mmol/L Chloride 96 L (98-107) mmol/L Carbon Dioxide 26 (22-29) mmol/L Anion Gap 14.7 (5-19) BUN 36 H (8-23) mg/dL Creatinine 1.3 H (0.7-1.2) mg/dL GFR Calculation Not Reportable Glucose 98 (65-115) mg/dL Calculated Osmolal ity 284 L (285-295) mOsm/k g Lactic Acid 1.8 (0.5-2.2) mmol/L Calcium 8.4 L (8.5-10.5) mg/dL Total Bilirubin 1.1 (0.15-1.2) mg/dL AST 120 H (0-40) U/L ALT 134 H (0-41) U/L Alkaline Phosphata se 91 (40-130) IU/L Troponin T Gen 5 n g/L (0-15) ng/L C-Reactive Protein 97.9 H (0.0-4.9) mg/L Total Protein 6.0 L (6.6-8.7) g/dL Albumin 3.3 L (3.5-5.2) g/dL Globulin 2.7 (1.3-4.6) g/dL Digoxin (0.6-1.2) ng/mL Influenza Type A A g (Negative) Influenza Type B A g (Negative) 09/13/20 09/13/20 09/13/20 Range/Units 18:27 18:27 18:29 WBC (4.0-10.0) 10^3/ uL RBC (4.1-5.3) 10^6/u L Hgb (11.7-16.6) g/dL Hct (42.0-52.0) % MCV (80-94) fL MCH (28.0-34.0) pg MCHC (30.0-36.0) g/dL RDW (12.1-15.1) % Plt Count (130-400) 10^3/c mm MPV (7.4-10.4) fL Neut % (Auto) % Lymph % (Auto) % [place] % (Auto) % Eos % (Auto) % Baso % (Auto) % Neut # (Auto) (1.8-7.7) 10^3/u L Lymph # (Auto) (0.8-4.8) 10^3/u L [place] # (Auto) (0.2-0.9) 10^3/u L Eos # (Auto) (0.0-0.8) 10^3/u L Baso # (Auto) (0.0-0.1) 10^3/u L Nucleated RBC % (a uto) % Nucleated RBCs # /100WBC Specimen Type Arterial Sample Site Radial, left ABG pH 7.49 H (7.35-7.45) ABG pCO2 29.6 L (35-45) mmHg ABG pO2 61.2 L (80.0-100.0) mmH g ABG HCO3 22.5 (22-26) mmol/L ABG Base Excess 0.4 (-2.0-2.0) mmol/ L Bridger Test Pos Hematocrit 51.1 (42-52) % O2 Delivery Device Nc O2 Liters/Min 4.0 % FiO2 36.0 % Intramural Director ID Amh Sodium (136-145) mmol/L Potassium (3.5-5.1) mmol/L Chloride (98-107) mmol/L Carbon Dioxide (22-29) mmol/L Anion Gap (5-19) BUN (8-23) mg/dL Creatinine (0.7-1.2) mg/dL GFR Calculation Glucose (65-115) mg/dL Calculated Osmolal ity (285-295) mOsm/k g Lactic Acid (0.5-2.2) mmol/L Calcium (8.5-10.5) mg/dL Total Bilirubin (0.15-1.2) mg/dL AST (0-40) U/L ALT (0-41) U/L Alkaline Phosphata se (40-130) IU/L Troponin T Gen 5 n g/L 16 H (0-15) ng/L C-Reactive Protein (0.0-4.9) mg/L Total Protein (6.6-8.7) g/dL Albumin (3.5-5.2) g/dL Globulin (1.3-4.6) g/dL Digoxin 0.3 L (0.6-1.2) ng/mL Influenza Type A A g (Negative) Influenza Type B A g (Negative) 09/13/20 Range/Units 18:33 WBC (4.0-10.0) 10^3/ uL RBC (4.1-5.3) 10^6/u L Hgb (11.7-16.6) g/dL Hct (42.0-52.0) % MCV (80-94) fL MCH (28.0-34.0) pg MCHC (30.0-36.0) g/dL RDW (12.1-15.1) % Plt Count (130-400) 10^3/c mm MPV (7.4-10.4) fL Neut % (Auto) % Lymph % (Auto) % [place] % (Auto) % Eos % (Auto) % Baso % (Auto) % Neut # (Auto) (1.8-7.7) 10^3/u L Lymph # (Auto) (0.8-4.8) 10^3/u L [place] # (Auto) (0.2-0.9) 10^3/u L Eos # (Auto) (0.0-0.8) 10^3/u L Baso # (Auto) (0.0-0.1) 10^3/u L Nucleated RBC % (a uto) % Nucleated RBCs # /100WBC Specimen Type Sample Site ABG pH (7.35-7.45) ABG pCO2 (35-45) mmHg ABG pO2 (80.0-100.0) mmH g ABG HCO3 (22-26) mmol/L ABG Base Excess (-2.0-2.0) mmol/ L Bridger Test Hematocrit (42-52) % O2 Delivery Device O2 Liters/Min % FiO2 % Intramural Director ID Sodium (136-145) mmol/L Potassium (3.5-5.1) mmol/L Chloride (98-107) mmol/L Carbon Dioxide (22-29) mmol/L Anion Gap (5-19) BUN (8-23) mg/dL Creatinine (0.7-1.2) mg/dL GFR Calculation Glucose (65-115) mg/dL Calculated Osmolal ity (285-295) mOsm/k g Lactic Acid (0.5-2.2) mmol/L Calcium (8.5-10.5) mg/dL Total Bilirubin (0.15-1.2) mg/dL AST (0-40) U/L ALT (0-41) U/L Alkaline Phosphata se (40-130) IU/L Troponin T Gen 5 n g/L (0-15) ng/L C-Reactive Protein (0.0-4.9) mg/L Total Protein (6.6-8.7) g/dL Albumin (3.5-5.2) g/dL Globulin (1.3-4.6) g/dL Digoxin (0.6-1.2) ng/mL Influenza Type A A g Negative (Negative) Influenza Type B A g Negative (Negative) EKG Data^: EKG 1: EKG Interpretation Date: 09/13/20 EKG interpretation time: 19:22 Interpretation: Atrial fibrillation with RVR, rate of 117, no ST elevation or depression, intervals within normal limits. Discharge Plan Discharge Patient Disposition: Admitted As Inpatient Admit Provider: Susan Barahona Clinical Impression: Acute respiratory distress, Hypoxia, HCAP (healthcare-associated pneumonia) Condition: Stable Coding Level of Care Code ED Tar Kettle Runner for Tylerg Aj
[2020-09-13 21:07] LABS: Procalcitonin 0.25 ng/mL (0-0.5)
[2020-09-13 21:25] LABS: D Dimer 2.11 ug/mIFEU (0-0.59)
[2020-09-13] MEDS: iodixanol 320 mg/mL 100mL Btl IV (21:31)
[2020-09-13 21:32] LABS: SARS Covid-2 Antigen Positive (Negative)
--- NOTE | 2020-09-13 22:03 | PC.NURSE ---
Patient arrived to the floor from the ED after report was received via phone. Patient has Zosyn bag running from ED which finished not very long after arriving to the floor. Patient is alert and oriented and ambulatory with assistance. Patient has been oriented to his room and has call light within reach.
[2020-09-13] MEDS: vancomycin 1,500 MG/300 ML PIGGYBACK 200 MG IV (22:06)
[2020-09-13] MEDS: heparin 5,000 unit/mL INJ 1 mL 5000 UNIT SUBCUT (22:17)
[2020-09-13] MEDS: sodium chloride 0.9% 250 ML IV (22:17)
[2020-09-13 23:42] LABS: Lactate Dehydrogenase 413 U/L (135-225)
[2020-09-14] VITALS (48 sets, daily range): BP systolic 72–124; BP diastolic 55–83; PULSE 91–125; RESP 14–95; TEMP 36.4–36.8; O2SAT 28–95
--- NOTE | 2020-09-14 00:03 | PC.PHAR ---
Vancomycin is dosed at 1000mg IVPB every 12 hours to produce a predicted trough level of 15.89 (population based pharmacokinetic analysis). A trough level has been ordered from the lab to be obtained before the fourth dose to confirm and adjust if needed.
--- NOTE | 2020-09-14 00:30 | PC.NURSE ---
Dr. Barahona notified of patient's heart rate ranging 100-125 in A-fib.
--- NOTE | 2020-09-14 01:11 | PC.NURSE ---
Dr. Barahona notified of patient's blood pressure 88/62. Ordered to hold Cardizem.
[2020-09-14] MEDS: digoxin 250 mcg/ml INJ 2 mL IVP (01:46)
--- NOTE | 2020-09-14 04:50 | PC.NURSE ---
Dr. Barahona notified of blood pressure of 85/65 and heart rate of 105. Ordered to hold 100 mg of PO Lopressor that is due.
[2020-09-14] MEDS: piperacillin-tazobactam 3.375 GM in sodium chloride 0.9% (plus) 50 ML IV ×3 (04:56→20:30)
[2020-09-14] MEDS: levothyroxine 25 mcg Tablet PO (04:57)
[2020-09-14] MEDS: pantoprazole DR 40 mg Tablet PO ×2 (04:57→18:11)
[2020-09-14] MEDS: tamsulosin 0.4 mg Capsule PO ×2 (04:57→18:11)
[2020-09-14] MEDS: heparin 5,000 unit/mL INJ 1 mL 5000 UNIT SUBCUT (04:57)
[2020-09-14] MEDS: levothyroxine 112 mcg Tablet PO (04:57)
[2020-09-14 05:13] LABS: Fibrinogen 405 mg/dL (174-498)
[2020-09-14 05:19] LABS: Alanine Aminotransferase 111 U/L (0-41); Albumin Level 2.9 g/dL (3.5-5.2); Alkaline Phosphatase 76 IU/L (40-130); Anion Gap 17.4 (5-19); Aspartate Amino Transferase 111 U/L (0-40); Blood Urea Nitrogen 37 mg/dL (8-23); C Reactive Protein 102.5 mg/L (0.0-4.9); Calcium 7.9 mg/dL (8.5-10.5); Carbon Dioxide 21 mmol/L (22-29); Chloride 96 mmol/L (98-107); Globulin 2.3 g/dL (1.3-4.6); Glucose 90 mg/dL (65-115); Osmolality Calculated 280 mOsm/kg (285-295); Potassium 3.4 mmol/L (3.5-5.1); Sodium 131 mmol/L (136-145); Total Bilirubin 1.3 mg/dL (0.15-1.2); Total Protein 5.2 g/dL (6.6-8.7)
[2020-09-14 05:36] LABS: Ferritin 1267 ng/mL (30-400)
[2020-09-14 07:00] LABS: Basophils % 0.1 %; Hematocrit 50.6 % (42.0-52.0); Hemoglobin 16.8 g/dL (11.7-16.6); Lymphocytes # 0.8 10^3/uL (0.8-4.8); Lymphocytes % 8.7 %; Mean Corpuscular HGB Conc 33.2 g/dL (30.0-36.0); Mean Corpuscular Hemoglobin 29.8 pg (28.0-34.0); Mean Corpuscular Volume 89.9 fL (80-94); Monocytes # 0.4 10^3/uL (0.2-0.9); Monocytes % 4.2 %; Neutrophils # 7.65 10^3/uL (1.8-7.7); Neutrophils % 86.3 %; Nucleated Red Blood Cells % 0 %; Platelet Count 171 10^3/cmm (130-400); Red Blood Count 5.63 10^6/uL (4.1-5.3); Red Cell Distribution Width 13.9 % (12.1-15.1); White Blood Count 8.9 10^3/uL (4.0-10.0)
[2020-09-14] MEDS: ascorbic acid 500 mg Tablet PO (08:09)
[2020-09-14] MEDS: dexamethasone 4 mg Tablet 6 MG PO (08:09)
[2020-09-14] MEDS: zinc gluconate 50 mg Tablet PO (08:09)
[2020-09-14] MEDS: vancomycin 1,000 MG in sodium chloride 0.9% 250 ML 250 MG IV ×2 (10:04→21:17)
--- NOTE | 2020-09-14 11:30 | P.PN_ITS ---
Subjective Subjective: Interval history: Admitted overnight. Labs and vitals noted. On examination patient lying in left lateral semiprone position. Complaining of cough, mild difficulty in breathing and nausea without any vomiting. Currently on my examination he is on 6 L high flow nasal cannula saturating 92% with heart rate of 1 22 bpm with atrial fibrillation with blood pressure 92 systolic. He states he has been having atrial fibrillation for over 10 years and was on anticoagulation till 3 years ago when he stopped it itself because of a spontaneous calf bleed. Denies any headache, hemoptysis, chest pain, dizziness. Complains of not feeling hungry and feeling fatigued and tired.. Vitals/I&O/Wt Last Vital Signs Temp 97.6 F 09/14/20 07:35 Pulse 125 H 09/14/20 10:43 Resp 24 H 09/14/20 10:43 BP 98/68 09/14/20 08:45 Pulse Ox 94 09/14/20 09:06 09/13/20 09/14/20 09/14/20 22:59 06:59 14:59 Intake Total 200 / 200 777.083 / 977.083 50 / 50 Output Total 450 / 450 400 / 400 Balance 200 / 200 327.083 / 527.083 -350 / -350 Weight last 48 hrs Weight 136.078 kg Physical Exam Narrative: EXAM NARRATIVE: General: No acute distress, AO x3, tired appearing, morbidly obese, nauseous. HEENT: PERRLA, pupils bilaterally equal and reactive Chest: Normal vesicular breath sounds bilaterally, diffuse rhonchi all over the lung kwon, good equal air entry bilaterally CVS: S1-S2 irregularly irregular, tachycardia, no gallops, no rubs Abdomen: Soft, nontender, no organomegaly, bowel sounds present Neuro: No focal deficits, no facial deformity, AO x3, power 5/5 in all limbs Data : 09/14/20 06:14 09/14/20 04:20 Micro: Microbiology 09/13/20 18:26 Blood Culture - Preliminary Blood SPECIMEN COLLECTED 09/13/20 18:27 Blood Culture - Preliminary Blood SPECIMEN COLLECTED A&P Assessment and plan (1) Sepsis: Status: Acute (2) Acute respiratory distress: Status: Acute (3) Pneumonia due to 2019 novel coronavirus: Status: Acute (4) Hypoxia: Status: Acute (5) BRAD (acute kidney injury): Status: Acute (6) Atrial fibrillation with rapid ventricular response: Status: Acute (7) Chronic diastolic heart failure: Status: Acute (8) Abnormal transaminases: Status: Acute Additional A&P Information Sepsis GERD acute hypoxic respiratory failure secondary to COVID-19 pneumonia: Moderate to severe disease. Sepsis respiratory met with tachycardia, tachypnea, leukocytosis, Patient requiring 6 to 7 L of high flow nasal cannula to maintain saturation over 90%. Even required BiPAP overnight. Patient tired appearing. Move patient to viral ICU. Switch Decadron 6 mg from oral to IV daily. Patient does have abnormal transaminases and BRAD with creatinine of 1.6. It was discussed with the patient that unfortunately remdesivir has not been approved in patients with abnormal liver enzymes and BRAD but can be given if benefits outweigh the risk factors. Patient states he understands and has agreed to be started on remdesivir. Start patient on remdesivir and will finish a 5-day course at least. We will continue to monitor liver enzymes and kidney functions. Vitamin C, zinc. Tessalon Perles. Aggressive pulmonary toilet with incentive spirometry and flutter valve. Start patient on Advair, Spiriva. BiPAP overnight. Patient does have a component of sleep apnea as well given the body habitus. Patient CTA done on admission negative for pulmonary embolism but D-dimer elevated. For now start patient on Eliquis 5 mg twice daily. Patient is agreeable to start the medication. Anticoagulation will be beneficial as well with atrial fibrillation and background. Inflammatory markers worsening today with worsening of CRP, fibrinogen. Cannot rule out superadded bacterial infection. MRSA swab negative, urine Legionella, bacterial antigen negative. Procalcitonin within normal limits. For now continue vancomycin and Zosyn as patient is clinically ill. We will continue to monitor blood cultures, sputum culture and urine culture and change treatment accordingly. BRAD:Most likely secondary to sepsis from severe infection in combination with hydrochlorothiazide and KERI inhibitor at baseline. Patient appears mildly dehydrated on examination. Start patient on very gentle hydration with normal saline at 50 cc/h. Check urine lites, urine eosinophils. Medical reconciliation done for nephrotoxic drugs. Continue to monitor BMP and electrolytes daily for now. High anion metabolic acidosis: Most likely secondary to BRAD. We will continue to monitor. Atrial fibrillation: Patient takes metoprolol 100 mg twice daily. Overnight patient was digoxin loaded dose well. Dig levels on the lower side. For now continue with metoprolol 50 mg twice daily for softer blood pressures. Fluid as above. Continue to monitor. If required can increase the dose of metoprolol to home dose once blood pressure better. Eliquis for anticoagulation. Hypertension: Goal blood pressure less than 140/90 mmHg with mean over 65. Blood pressure soft. For now continue holding other antihypertensives including lisinopril, hydrochlorothiazide but will continue with metoprolol given atrial fibrillation with endpoint ventricular response. Last echocardiogram done in August 2020 shows an EF of 50% with global mild LV hypokinesia, mildly increased LA and RA size. Have confirmed with patient and is agreeable for Kowalski catheterization for st rict input output charting. Given multiple comorbidities with atrial fibrillation and borderline blood pressures with increasing requirement of oxygen supplementation to maintain saturation over 90% in setting of severe fatigue will transfer patient to viral ICU. Continue other chronic medications. Full code Cardiac diet DVT prophylaxis Eliquis for now. Attestations Medical Necessity Statement*: Patient requires further hospitalization for management of hypoxia secondary to COVID-19 pneumonia, acute kidney injury, atrial fibrillation with rapid ventricular response, ongoing hypotension. Time Spent in Patient Care: Greater than 35 minutes (>than 50% of time spent in counselling and/or direct pt care on unit) . Coding Level of Care Code Acute Sound Effects Supervisor for Matt Rocha Diagnoses Sepsis A41.9 Acute respiratory distress R06.03 Pneumonia due to 2019 novel coronavirus U07.1; J12.89 Hypoxia R09.02 BRAD (acute kidney injury) N17.9 Atrial fibrillation with rapid ventricular response I48.91 Chronic diastolic heart failure I50.32 Abnormal transaminases R74.8
[2020-09-14 11:42] LABS: NT Pro B Type Natriuretic Pept 1416 pg/mL (0-450); Procalcitonin 0.33 ng/mL (0-0.5); Thyroid Stimulating Hormone 1.24 uIU/mL (0.27-4.20)
[2020-09-14 11:53] LABS: Iron 28 ug/dL (59-158); Percent Saturation 15.8 % (20-50); Total Iron Binding Capacity 177 mcg/dl; Unsaturated Iron Binding 149 ug/dL (112-347)
--- NOTE | 2020-09-14 12:00 | PC.NURSE ---
called Talked to and informed her that pt is going to be transferred to VICU. verbalizes understanding if the treatment goals per doctor orders.
[2020-09-14] MEDS: metoprolol tartrate 50 mg Tablet PO ×2 (12:10→18:12)
[2020-09-14 12:11] LABS: Glucose Point of Care 104 mg/dL (70-110)
[2020-09-14] MEDS: sodium chloride 0.9% 1,000 ML 50 ML IV (12:13)
[2020-09-14 12:48] LABS: Bilirubin Urine Neg (Negative); Blood Urine 2+ (Negative); Glucose Urine UA Norm (Normal); Ketones Urine Negative (Negative); Leukocyte Esterase Urine Negative (Negative); Nitrate Urine Negative (Negative); Protein Urine 1+ (Negative); Specific Gravity, Urine 1.015 (1.005-1.030); Urine Appearance Clear (CLEAR); Urine Color Yellow (Yellow); Urobilinogen Urine 1 mg/dL (Negative); pH Urine 5 (5-7)
[2020-09-14 12:49] LABS: Bacteria Urine 1+ /hpf; RBC Urine 0-4 /hpf (0-2); Squamous Epithelial Cell Urine 0-4 /hpf (0-5); WBC Urine 0-4 /hpf (0-5)
[2020-09-14 12:50] LABS: Add Urine Culture? No; Amorphous Sediment Urine 2+ /hpf; Hyaline Casts Urine 0-4 /lpf; Mucus Urine TRACE /hpf
[2020-09-14 12:51] LABS: Potassium, Radom Urine 53 mmol/L; Urine Random Chloride 51 mmol/L; Urine Random Sodium 62 mmol/L
[2020-09-14] MEDS: dexamethasone 4 mg/mL INJ 6 MG IVP (12:51)
[2020-09-14] MEDS: remdesivir 200 MG in sodium chloride 0.9% (100 ml) 100 ML 100 MG IV (12:52)
--- NOTE | 2020-09-14 14:00 | PC.NURSE ---
Transfer to [facility] report given to [facility].
--- NOTE | 2020-09-14 14:34 | PC.NURSE ---
TRANSFER- 1405- Pt arrived from [facility]SU via w/c. O2 via NC at 5 L/min. Assisted pt to bed. No c/o voiced. Resting quietly in bed at this time. Vitals stable. NS infusing at 50cc/min. Remdesivir infusing as ordered. Will continue to monitor.
[2020-09-14 17:03] LABS: Glucose Point of Care 116 mg/dL (70-110)
[2020-09-14] MEDS: apixaban 5 mg Tablet PO (18:11)
[2020-09-14] MEDS: ascorbic acid 500 mg Tablet 1000 MG PO (18:11)
[2020-09-14] MEDS: atorvastatin 40 mg Tablet 20 MG PO (18:11)
--- NOTE | 2020-09-14 19:00 | PC.NURSE ---
Report received, care assumed. Monitor alarms, plan of care et previous orders reviewed. Please see physical assessment et vital sign flow sheet for details.
--- NOTE | 2020-09-14 19:42 | PC.NURSE ---
Patient states that he would like his norman removed, nurse has been notified.
[2020-09-14] MEDS: benzonatate 100 mg Capsule PO (20:30)
--- NOTE | 2020-09-14 20:31 | PC.NURSE ---
Patient blood glucose is 144
[2020-09-14 21:04] LABS: Glucose Point of Care 144 mg/dL (70-110)
[2020-09-15] VITALS (31 sets, daily range): BP systolic 87–131; BP diastolic 63–88; PULSE 81–123; RESP 14–31; TEMP 36.4–37.4; O2SAT 81–98
--- NOTE | 2020-09-15 | PC.NURSE ---
Patient demanding that norman be removed due to burning. Attempted to calm patient, educate on reason for catheter without success. Norman catheter removed at this time. Will continue to monitor.
[2020-09-15] MEDS: levothyroxine 112 mcg Tablet PO (05:11)
[2020-09-15] MEDS: piperacillin-tazobactam 3.375 GM in sodium chloride 0.9% (plus) 50 ML IV ×3 (05:11→20:37)
[2020-09-15] MEDS: levothyroxine 25 mcg Tablet PO (05:11)
[2020-09-15 05:15] LABS: Basophils % 0.1 %; Hematocrit 49.3 % (42.0-52.0); Hemoglobin 16.1 g/dL (11.7-16.6); Lymphocytes # 0.5 10^3/uL (0.8-4.8); Lymphocytes % 6.2 %; Mean Corpuscular HGB Conc 32.7 g/dL (30.0-36.0); Mean Corpuscular Hemoglobin 29.7 pg (28.0-34.0); Mean Corpuscular Volume 90.8 fL (80-94); Monocytes # 0.4 10^3/uL (0.2-0.9); Monocytes % 4.6 %; Neutrophils # 7.34 10^3/uL (1.8-7.7); Neutrophils % 88.5 %; Nucleated Red Blood Cells % 0 %; Platelet Count 173 10^3/cmm (130-400); Red Blood Count 5.43 10^6/uL (4.1-5.3); White Blood Count 8.3 10^3/uL (4.0-10.0)
[2020-09-15] MEDS: metoprolol tartrate 50 mg Tablet PO ×2 (05:16→17:33)
[2020-09-15] MEDS: pantoprazole DR 40 mg Tablet PO ×2 (05:16→17:33)
[2020-09-15] MEDS: tamsulosin 0.4 mg Capsule PO ×2 (05:19→17:33)
--- NOTE | 2020-09-15 05:26 | PC.NURSE ---
Patient's am lab results noted.
[2020-09-15 05:30] LABS: D Dimer 1.69 ug/mIFEU (0-0.59)
[2020-09-15 05:32] LABS: Fibrinogen 429 mg/dL (174-498)
--- NOTE | 2020-09-15 06:00 | XRR_ITS ---
PROCEDURE INFORMATION: Exam: XR Chest, 1 View Exam date and time: 09/15/2020 8:27 AM Age: 74 years old Clinical indication: Cough; Additional info: Covid TECHNIQUE: Imaging protocol: XR of the chest Views: 1 view. COMPARISON: CR XR chest 1V portable [id number] 09/13/2020 6:13 PM FINDINGS: Lungs: Emphysematous change, interstitial prominence, and worsening right-sided airspace disease in the setting of reported COVID-19 pneumonitis. Pleural space: No significant pleural effusion. Heart/Mediastinum: Cardiomegaly. Vasculature: Enlargement and tortuosity of the thoracic aorta. Bones/joints: osteopenia, degenerative change, and left rotator cuff repair. XR/XR chest 1V portable [id number] IMPRESSION: Emphysematous change, interstitial prominence, and worsening right-sided airspace disease in the setting of reported COVID-19 pneumonitis.
[2020-09-15 06:25] LABS: Alanine Aminotransferase 102 U/L (0-41); Albumin Level 2.8 g/dL (3.5-5.2); Alkaline Phosphatase 76 IU/L (40-130); Anion Gap 16.4 (5-19); Aspartate Amino Transferase 89 U/L (0-40); Blood Urea Nitrogen 33 mg/dL (8-23); C Reactive Protein 127.6 mg/L (0.0-4.9); Carbon Dioxide 25 mmol/L (22-29); Chloride 96 mmol/L (98-107); Creatine Phosphokinase 195 U/L (39-308); Globulin 2.9 g/dL (1.3-4.6); Glucose 114 mg/dL (65-115); Lactate Dehydrogenase 340 U/L (135-225); NT Pro B Type Natriuretic Pept 1841 pg/mL (0-450); Osmolality Calculated 286 mOsm/kg (285-295); Potassium 3.4 mmol/L (3.5-5.1); Sodium 134 mmol/L (136-145); Total Bilirubin 1.1 mg/dL (0.15-1.2); Total Protein 5.7 g/dL (6.6-8.7)
[2020-09-15 06:50] LABS: Ferritin 1152 ng/mL (30-400)
[2020-09-15 08:10] LABS: Glucose Point of Care 118 mg/dL (70-110)
[2020-09-15] MEDS: ondansetron 2 mg/ML SDV 2 mL 4 MG IVP (08:15)
[2020-09-15 09:05] LABS: Estmated Average Glucose 120; Hemoglobin A1C 5.8 % (4.0-6.0)
[2020-09-15] MEDS: sodium chloride 0.9% 1,000 ML 50 ML IV (09:33)
[2020-09-15] MEDS: apixaban 5 mg Tablet PO ×2 (09:33→17:32)
[2020-09-15] MEDS: ascorbic acid 500 mg Tablet 1000 MG PO (09:33)
[2020-09-15] MEDS: vancomycin 1,000 MG in sodium chloride 0.9% 250 ML 250 MG IV ×2 (09:34→21:45)
[2020-09-15] MEDS: zinc gluconate 50 mg Tablet PO (09:34)
[2020-09-15] MEDS: benzonatate 100 mg Capsule PO ×3 (09:34→20:37)
--- NOTE | 2020-09-15 10:05 | PM.PN ---
Subjective Subjective: Interval history: Patient reports feeling slightly better. He remains in atrial fibrillation with rapid ventricular response. He is on 7 L high flow by nasal cannula saturating in the low 90s. Reports that he has some phlegm productive cough. Reports that he is nauseous this morning and has decreased appetite and oral intake. Denies chest pain or abdominal pain. Vitals/I&O/Wt Last Vital Signs Temp 98.2 F 09/15/20 07:00 Pulse 94 09/15/20 09:45 Resp 20 H 09/15/20 09:45 BP 92/73 09/15/20 03:00 Pulse Ox 92 09/15/20 09:45 09/14/20 09/15/20 09/15/20 22:59 06:59 14:59 Intake Total 550 / 950 50 / 1000 1000 / 1000 Output Total 600 / 1000 250 / 1250 Balance -50 / -50 -200 / -250 1000 / 1000 Weight last 48 hrs Weight 136.078 kg Physical Exam Const: COMMON NORMALS: no acute distress and patient oriented x3 Resp: COMMON NORMALS: normal respiratory effort OTHER: Decreased air movement with very minimal bibasilar Rales. Cardio: RHYTHM: abnormal rhythm irregularly irregular HEART SOUNDS: Abnormal heart opening sounds OTHER: No lower extremity edema GI: COMMON NORMALS: Normal to inspection, nondistended, normoactive bowel sounds present, Soft to palpation and non-tender PALPATION: Yes Soft to palpation Neuro: COMMON NORMALS: patient oriented x3 and no focal motor deficits Urinary Catheter Management^: Kowalski: Cath Placed During This Visit: yes, but has since been removed by the nurse Reason for Continuing Indwelling Catheter: Accurate Measurement of Urinary Output in Critically Ill Patients Urinary Catheter Date of Insertion: 09/14/20 Urinary Catheter Time of Insertion: : Date Urinary Catheter Removed: 09/15/20 Time Urinary Catheter Discontinued: 00:00 Data : 09/15/20 03:00 09/15/20 03:00 Micro: Microbiology 09/13/20 18:26 Blood Culture - Preliminary Blood NEGATIVE TO DATE 09/13/20 18:27 Blood Culture - Preliminary Blood NEGATIVE TO DATE 09/14/20 12:00 Legionella Urinary Antigen - Final Urine,Voided A&P Assessment and plan (1) Sepsis: Status: Acute (2) Acute respiratory distress: Status: Acute (3) Pneumonia due to 2019 novel coronavirus: Status: Acute (4) Hypoxia: Status: Acute (5) BRAD (acute kidney injury): Prerenal. Status: Acute (6) Atrial fibrillation with rapid ventricular response: Status: Acute (7) Chronic diastolic heart failure: Status: Acute (8) Abnormal transaminases: Status: Acute (9) Dehydration with hyponatremia: Status: Acute (10) Hypokalemia: Status: Acute Additional A&P Information Sepsis GERD acute hypoxic respiratory failure secondary to COVID-19 pneumonia: Moderate to severe disease. Sepsis respiratory met with tachycardia, tachypnea, leukocytosis, Patient requiring 6 to 7 L of high flow nasal cannula to maintain saturation over 90%. Even required BiPAP overnight. Patient tired appearing. Move patient to viral ICU. Switch Decadron 6 mg from oral to IV daily. Patient does have abnormal transaminases and BRAD with creatinine of 1.6. It was discussed with the patient that unfortunately remdesivir has not been approved in patients with abnormal liver enzymes and BRAD but can be given if benefits outweigh the risk factors. Patient states he understands and has agreed to be started on remdesivir. Start patient on remdesivir and will finish a 5-day course at least. We will continue to monitor liver enzymes and kidney functions. Vitamin C, zinc. Tessalon Perles. Aggressive pulmonary toilet with incentive spirometry and flutter valve. Start patient on Advair, Spiriva. BiPAP overnight. Patient does have a component of sleep apnea as well given the body habitus. Patient CTA done on admission negative for pulmonary embolism but D-dimer elevated. For now start patient on Eliquis 5 mg twice daily. Patient is agreeable to start the medication. Anticoagulation will be beneficial as well with atrial fibrillation and background. Inflammatory markers worsening today with worsening of CRP, fibrinogen. Cannot rule out superadded bacterial infection. MRSA swab negative, urine Legionella, bacterial antigen negative. Procalcitonin within normal limits. For now continue vancomycin and Zosyn as patient is clinically ill. We will continue to monitor blood cultures, sputum culture and urine culture and change treatment accordingly. BRAD:Most likely secondary to sepsis from severe infection in combination with hydrochlorothiazide and KERI inhibitor at baseline. Patient appears mildly dehydrated on examination. Start patient on very gentle hydration with normal saline at 50 cc/h. Check urine lites, urine eosinophils. Medical reconciliation done for nephrotoxic drugs. Continue to monitor BMP and electrolytes daily for now. High anion metabolic acidosis: Most likely secondary to BRAD. We will continue to monitor. Atrial fibrillation: Patient takes metoprolol 100 mg twice daily. Overnight patient was digoxin loaded dose well. Dig levels on the lower side. For now continue with metoprolol 50 mg twice daily for softer blood pressures. Fluid as above. Continue to monitor. If required can increase the dose of metoprolol to home dose once blood pressure better. Eliquis for anticoagulation. Hypertension: Goal blood pressure less than 140/90 mmHg with mean over 65. Blood pressure soft. For now continue holding other antihypertensives including lisinopril, hydrochlorothiazide but will continue with metoprolol given atrial fibrillation with endpoint ventricular response. Last echocardiogram done in August 2020 shows an EF of 50% with global mild LV hypokinesia, mildly increased LA and RA size. Have confirmed with patient and is agreeable for Kowalski catheterization for strict input output charting. Given multiple comorbidities with atrial fibrillation and borderline blood pressures with increasing requirement of oxygen supplementation to maintain saturation over 90% in setting of severe fatigue will transfer patient to viral ICU. Continue other chronic medications. Full code Cardiac diet DVT prophylaxis Eliquis for now. PLAN: We will DC steroids and vitamin C given patient's significant history of GERD and current symptoms of nausea especially in view of being anticoagulated with high risk for GI bleed. Zofran as needed for nausea control. Continue antibiotics and remdesivir. Switch fluids to LR and replete potassium and monitor urinary output. Attestations Medical Necessity Statement*: Patient with hypoxic respite failure requires close ICU monitoring and treatment Coding Level of Care Code Acute Credit Underwriter for [facility] Diagnoses Sepsis A41.9 Acute respiratory distress R06.03 Pneumonia due to 2019 novel coronavirus U07.1; J12.89 Hypoxia R09.02 BRAD (acute kidney injury) N17.9 Atrial fibrillation with rapid ventricular response I48.91 Chronic diastolic heart failure I50.32 Abnormal transaminases R74.8 Dehydration with hyponatremia E86.0; E87.1 Hypokalemia E87.6
[2020-09-15] MEDS: potassium chloride ER 20 mEq Tablet PO (10:39)
[2020-09-15] MEDS: lactated ringers 1,000 ML 50 ML IV (10:39)
[2020-09-15 11:48] LABS: Glucose Point of Care 135 mg/dL (70-110)
[2020-09-15 16:57] LABS: Glucose Point of Care 100 mg/dL (70-110)
[2020-09-15] MEDS: atorvastatin 40 mg Tablet 20 MG PO (17:32)
[2020-09-15] MEDS: remdesivir 100 MG in sodium chloride 0.9% (100 ml) 100 ML IV (17:33)
[2020-09-15 20:48] LABS: Glucose Point of Care 136 mg/dL (70-110)
[2020-09-16] VITALS (21 sets, daily range): BP systolic 86–119; BP diastolic 60–93; PULSE 83–128; RESP 18–49; TEMP 36.5–37.2; O2SAT 82–97
[2020-09-16] MEDS: levothyroxine 25 mcg Tablet PO (03:19)
[2020-09-16] MEDS: levothyroxine 112 mcg Tablet PO (03:19)
[2020-09-16] MEDS: piperacillin-tazobactam 3.375 GM in sodium chloride 0.9% (plus) 50 ML IV ×3 (04:12→20:09)
[2020-09-16] MEDS: tamsulosin 0.4 mg Capsule PO ×2 (05:10→17:08)
[2020-09-16] MEDS: pantoprazole DR 40 mg Tablet PO ×2 (05:10→17:07)
[2020-09-16] MEDS: metoprolol tartrate 50 mg Tablet PO (05:11)
[2020-09-16] MEDS: lactated ringers 1,000 ML 50 ML IV ×2 (05:15→09:33)
[2020-09-16 05:18] LABS: Fibrinogen 418 mg/dL (174-498)
[2020-09-16 05:21] LABS: D Dimer 1.43 ug/mIFEU (0-0.59)
[2020-09-16 06:22] LABS: Basophils % 0.1 %; Eosinophils % 0.2 %; Hematocrit 48.1 % (42.0-52.0); Hemoglobin 15.9 g/dL (11.7-16.6); Lymphocytes # 0.6 10^3/uL (0.8-4.8); Lymphocytes % 6.2 %; Mean Corpuscular HGB Conc 33.1 g/dL (30.0-36.0); Mean Corpuscular Hemoglobin 29.8 pg (28.0-34.0); Mean Corpuscular Volume 90.2 fL (80-94); Mean Platelet Volume 11.4 fL (7.4-10.4); Monocytes # 0.4 10^3/uL (0.2-0.9); Monocytes % 4.3 %; Neutrophils # 7.81 10^3/uL (1.8-7.7); Neutrophils % 88.6 %; Nucleated Red Blood Cells % 0 %; Platelet Count 175 10^3/cmm (130-400); Red Blood Count 5.33 10^6/uL (4.1-5.3); Red Cell Distribution Width 14.2 % (12.1-15.1); White Blood Count 8.8 10^3/uL (4.0-10.0)
[2020-09-16 06:23] LABS: Glucose Point of Care 105 mg/dL (70-110)
[2020-09-16 07:11] LABS: Alanine Aminotransferase 84 U/L (0-41); Albumin Level 2.6 g/dL (3.5-5.2); Alkaline Phosphatase 70 IU/L (40-130); Blood Urea Nitrogen 23 mg/dL (8-23); Calcium 7.8 mg/dL (8.5-10.5); Carbon Dioxide 24 mmol/L (22-29); Chloride 95 mmol/L (98-107); Creatine Phosphokinase 159 U/L (39-308); Ferritin 781 ng/mL (30-400); Globulin 2.8 g/dL (1.3-4.6); Glucose 92 mg/dL (65-115); NT Pro B Type Natriuretic Pept 1341 pg/mL (0-450); Osmolality Calculated 273 mOsm/kg (285-295); Sodium 130 mmol/L (136-145); Total Bilirubin 0.9 mg/dL (0.15-1.2); Total Protein 5.4 g/dL (6.6-8.7)
[2020-09-16 08:04] LABS: Anion Gap 14.3 (5-19)
[2020-09-16 08:05] LABS: Aspartate Amino Transferase 74 U/L (0-40); Potassium 3.3 mmol/L (3.5-5.1)
[2020-09-16 08:07] LABS: Lactate Dehydrogenase 386 U/L (135-225)
[2020-09-16] MEDS: benzonatate 100 mg Capsule PO ×3 (09:32→20:08)
[2020-09-16] MEDS: vancomycin 1,000 MG in sodium chloride 0.9% 250 ML 250 MG IV ×2 (09:32→21:00)
[2020-09-16] MEDS: apixaban 5 mg Tablet PO ×2 (09:32→17:07)
[2020-09-16] MEDS: potassium chloride ER 20 mEq Tablet 40 MEQ PO (09:32)
--- NOTE | 2020-09-16 10:11 | PM.PN ---
Subjective Subjective: Interval history: Patient reports feeling better compared to yesterday. Reports that his blood pressure usually is low at times in the 80s over 50s for long period of time. His cough is improving. Vitals/I&O/Wt Last Vital Signs Temp 98.0 F 09/16/20 04:00 Pulse 119 H 09/16/20 09:11 Resp 18 09/16/20 09:11 BP 86/63 09/16/20 08:00 Pulse Ox 92 09/16/20 09:11 09/15/20 09/16/20 09/16/20 22:59 06:59 14:59 Intake Total 2440 / 4140 1613 / 5753 625 / 625 Output Total 200 / 600 350 / 950 Balance 2240 / 3540 1263 / 4803 625 / 625 Physical Exam Const: COMMON NORMALS: no acute distress and patient oriented x3 Resp: COMMON NORMALS: normal respiratory effort OTHER: Decreased air movement with very minimal bibasilar Rales. Cardio: RHYTHM: abnormal rhythm irregularly irregular HEART SOUNDS: Abnormal heart opening sounds OTHER: No lower extremity edema GI: COMMON NORMALS: Normal to inspection, nondistended, normoactive bowel sounds present, Soft to palpation and non-tender PALPATION: Yes Soft to palpation Neuro: COMMON NORMALS: patient oriented x3 and no focal motor deficits Urinary Catheter Management^: Kowalski: Cath Placed During This Visit: yes, but has since been removed by the nurse Reason for Continuing Indwelling Catheter: Accurate Measurement of Urinary Output in Critically Ill Patients Urinary Catheter Date of Insertion: 09/14/20 Urinary Catheter Time of Insertion: 12:20 Date Urinary Catheter Removed: 09/15/20 Time Urinary Catheter Discontinued: 00:00 Data : 09/16/20 03:30 09/16/20 06:15 A&P Assessment and plan (1) Sepsis: Status: Acute (2) Acute respiratory distress: Status: Acute (3) Pneumonia due to 2019 novel coronavirus: Status: Acute (4) Hypoxia: Status: Acute (5) BRAD (acute kidney injury): Prerenal. Status: Acute (6) Atrial fibrillation with rapid ventricular response: Status: Acute (7) Chronic diastolic heart failure: Status: Acute (8) Abnormal transaminases: Status: Acute (9) Dehydration with hyponatremia: Status: Acute (10) Hypokalemia: Status: Acute Additional A&P Information Sepsis GERD acute hypoxic respiratory failure secondary to COVID-19 pneumonia: Moderate to severe disease. Sepsis respiratory met with tachycardia, tachypnea, leukocytosis, Patient requiring 6 to 7 L of high flow nasal cannula to maintain saturation over 90%. Even required BiPAP overnight. Patient tired appearing. Move patient to viral ICU. Switch Decadron 6 mg from oral to IV daily. Patient does have abnormal transaminases and BRAD with creatinine of 1.6. It was discussed with the patient that unfortunately remdesivir has not been approved in patients with abnormal liver enzymes and BRAD but can be given if benefits outweigh the risk factors. Patient states he understands and has agreed to be started on remdesivir. Start patient on remdesivir and will finish a 5-day course at least. We will continue to monitor liver enzymes and kidney functions. Vitamin C, zinc. Tessalon Perles. Aggressive pulmonary toilet with incentive spirometry and flutter valve. Start patient on Advair, Spiriva. BiPAP overnight. Patient does have a component of sleep apnea as well given the body habitus. Patient CTA done on admission negative for pulmonary embolism but D-dimer elevated. For now start patient on Eliquis 5 mg twice daily. Patient is agreeable to start the medication. Anticoagulation will be beneficial as well with atrial fibrillation and background. Inflammatory markers worsening today with worsening of CRP, fibrinogen. Cannot rule out superadded bacterial infection. MRSA swab negative, urine Legionella, bacterial antigen negative. Procalcitonin within normal limits. For now continue vancomycin and Zosyn as patient is clinically ill. We will continue to monitor blood cultures, sputum culture and urine culture and change treatment accordingly. BRAD:Most likely secondary to sepsis from severe infection in combination with hydrochlorothiazide and KERI inhibitor at baseline. Patient appears mildly dehydrated on examination. Start patient on very gentle hydration with normal saline at 50 cc/h. Check urine lites, urine eosinophils. Medical reconciliation done for nephrotoxic drugs. Continue to monitor BMP and electrolytes daily for now. High anion metabolic acidosis: Most likely secondary to BRAD. We will continue to monitor. Atrial fibrillation: Patient takes metoprolol 100 mg twice daily. Overnight patient was digoxin loaded dose well. Dig levels on the lower side. For now continue with metoprolol 50 mg twice daily for softer blood pressures. Fluid as above. Continue to monitor. If required can increase the dose of metoprolol to home dose once blood pressure better. Eliquis for anticoagulation. Hypertension: Goal blood pressure less than 140/90 mmHg with mean over 65. Blood pressure soft. For now continue holding other antihypertensives including lisinopril, hydrochlorothiazide but will continue with metoprolol given atrial fibrillation with endpoint ventricular response. Last echocardiogram done in August 2020 shows an EF of 50% with global mild LV hypokinesia, mildly increased LA and RA size. Have confirmed with patient and is agreeable for Kowalski catheterization for strict input output charting. Given multiple comorbidities with atrial fibrillation and borderline blood pressures with increasing requirement of oxygen supplementation to maintain saturation over 90% in setting of severe fatigue will transfer patient to viral ICU. Continue other chronic medications. Full code Cardiac diet DVT prophylaxis Eliquis for now. PLAN: Continue current monitoring and treatment including antibiotics but increase metoprolol to 75 mg twice daily for better heart rate control. Patient's right-sided pneumonia is much more pronounced and if clinically and radiographically in several weeks patient is not improving further evaluation with bronchoscopy should be considered. This was discussed with patient and he voiced understanding. Monitor vitals. Continue physical therapy. Wean off oxygen as saturations permit Attestations Medical Necessity Statement*: Patient with pneumonia and hypoxic respiratory failure requires close ICU monitoring and treatment. Coding Level of Care Code Acute Computer Education Teacher for [facility] Diagnoses Sepsis A41.9 Acute respiratory distress R06.03 Pneumonia due to 2019 novel coronavirus U07.1; J12.89 Hypoxia R09.02 BRAD (acute kidney injury) N17.9 Atrial fibrillation with rapid ventricular response I48.91 Chronic diastolic heart failure I50.32 Abnormal transaminases R74.8 Dehydration with hyponatremia E86.0; E87.1 Hypokalemia E87.6
[2020-09-16 11:48] LABS: Glucose Point of Care 90 mg/dL (70-110)
[2020-09-16] MEDS: metoprolol tartrate 25 mg Tablet PO (12:30)
[2020-09-16 14:11] LABS: Glucose Point of Care 94 mg/dL (70-110)
--- NOTE | 2020-09-16 14:57 | DCPLANNER ---
Pg 2 of IM explained to Pt's Spouse; Alivia via the phone [phone]. No questions as she is familiar with this.
[2020-09-16 16:46] LABS: Glucose Point of Care 95 mg/dL (70-110)
[2020-09-16] MEDS: atorvastatin 40 mg Tablet 20 MG PO (17:07)
[2020-09-16 19:27] LABS: Glucose Point of Care 107 mg/dL (70-110)
[2020-09-16] MEDS: remdesivir 100 MG in sodium chloride 0.9% (100 ml) 100 ML IV (19:36)
[2020-09-16] MEDS: metoprolol tartrate 50 mg Tablet 75 MG PO (20:07)
--- NOTE | 2020-09-16 21:51 | PC.NURSE ---
Patient resting in room with eyes closed. Patient in on high flow nasal cannula. Right side lungs sounds good, left side diminished. Patient is alert and orientated. No s/s of distress or complaints of pain. New IV site started on left forearm due to multiple IV medications. Patient tolerated well. Call light is within reach. Continue care.
[2020-09-17] VITALS (15 sets, daily range): BP systolic 91–129; BP diastolic 52–91; PULSE 85–121; RESP 17–31; TEMP 36.7–37.3; O2SAT 88–96
--- NOTE | 2020-09-17 00:52 | PC.NURSE ---
Patient up sitting on side of bed using urinal. Patient still denies any pain and does not display and s/s of distress. Able to voice concerns and make needs known. Call light within reach. Continue care.
[2020-09-17 03:14] LABS: Basophils % 0.2 %; Eosinophils # 0.1 10^3/uL (0.0-0.8); Eosinophils % 1.4 %; Hematocrit 43.9 % (42.0-52.0); Hemoglobin 14.7 g/dL (11.7-16.6); Lymphocytes # 0.4 10^3/uL (0.8-4.8); Mean Corpuscular HGB Conc 33.5 g/dL (30.0-36.0); Mean Corpuscular Hemoglobin 30.1 pg (28.0-34.0); Mean Platelet Volume 10.3 fL (7.4-10.4); Monocytes # 0.3 10^3/uL (0.2-0.9); Monocytes % 4.9 %; Neutrophils # 4.89 10^3/uL (1.8-7.7); Neutrophils % 86.1 %; Nucleated Red Blood Cells % 0 %; Platelet Count 146 10^3/cmm (130-400); Red Blood Count 4.88 10^6/uL (4.1-5.3); Red Cell Distribution Width 14.1 % (12.1-15.1); White Blood Count 5.7 10^3/uL (4.0-10.0)
[2020-09-17 03:47] LABS: Fibrinogen 369 mg/dL (174-498)
[2020-09-17 03:49] LABS: Alanine Aminotransferase 69 U/L (0-41); Albumin Level 2.4 g/dL (3.5-5.2); Alkaline Phosphatase 62 IU/L (40-130); Anion Gap 9.2 (5-19); Aspartate Amino Transferase 51 U/L (0-40); Blood Urea Nitrogen 17 mg/dL (8-23); C Reactive Protein 93.7 mg/L (0.0-4.9); Calcium 7.7 mg/dL (8.5-10.5); Carbon Dioxide 26 mmol/L (22-29); Chloride 99 mmol/L (98-107); Creatine Phosphokinase 108 U/L (39-308); D Dimer 1.24 ug/mIFEU (0-0.59); Globulin 2.6 g/dL (1.3-4.6); Glucose 106 mg/dL (65-115); Lactate Dehydrogenase 260 U/L (135-225); NT Pro B Type Natriuretic Pept 1104 pg/mL (0-450); Osmolality Calculated 274 mOsm/kg (285-295); Potassium 3.2 mmol/L (3.5-5.1); Sodium 131 mmol/L (136-145)
[2020-09-17] MEDS: levothyroxine 112 mcg Tablet PO (04:13)
[2020-09-17] MEDS: piperacillin-tazobactam 3.375 GM in sodium chloride 0.9% (plus) 50 ML IV ×3 (04:14→20:49)
[2020-09-17] MEDS: levothyroxine 25 mcg Tablet PO (04:14)
[2020-09-17] MEDS: tamsulosin 0.4 mg Capsule PO ×2 (05:14→17:16)
[2020-09-17] MEDS: pantoprazole DR 40 mg Tablet PO ×2 (05:14→17:15)
[2020-09-17] MEDS: metoprolol tartrate 50 mg Tablet 75 MG PO ×2 (05:14→17:15)
[2020-09-17 05:58] LABS: Ferritin 682 ng/mL (30-400)
--- NOTE | 2020-09-17 06:00 | XR_ITS ---
WS: [id number] XR chest 1V portable [id number] REASON FOR EXAM: covid FINDINGS: Significantly tortuous thoracic aorta and mild cardiomegaly. Consolidation in the left lower lobe with blunting of the left costophrenic angle. No significant int erval change compared to 09/15/2020. The opacities in the right lung demonstrate increased density and a more accentuated linear pattern w hich is seen in mid late-phase Covid pneumonitis. The right costophrenic angle shows mild blunting. XR/XR chest 1V portable [id number] IMPRESSION: Findings compatible with evolving Covid pneumonitis.
--- NOTE | 2020-09-17 06:04 | PC.NURSE ---
Uneventful shift; Patient rested soundly throughout the night. Patient denies any pain and is alert and orientated. Call light within reach. Continue care.
[2020-09-17 07:38] LABS: Glucose Point of Care 84 mg/dL (70-110)
[2020-09-17] MEDS: potassium chloride ER 20 mEq Tablet 40 MEQ PO ×2 (09:43→10:33)
[2020-09-17] MEDS: apixaban 5 mg Tablet PO ×2 (09:43→17:15)
[2020-09-17] MEDS: benzonatate 100 mg Capsule PO ×3 (09:43→20:51)
--- NOTE | 2020-09-17 10:39 | PM.PN ---
Subjective Subjective: Interval history: Patient reports doing okay and wants to go home. He still on 9 L of high flow nasal cannula saturating 94% this morning. Denies cough. Denies chest pain or abdominal pain. His oral intake and appetite improved. His inflammatory markers and liver enzymes are gradually improving although CRP noted today to increase to 93.7 and albumin is down to 2.4. He appears ill. Vitals/I&O/Wt Last Vital Signs Temp 99.1 F 09/17/20 04:00 Pulse 91 09/17/20 09:19 Resp 18 09/17/20 09:19 BP 99/52 09/17/20 06:00 Pulse Ox 94 09/17/20 09:19 09/16/20 09/17/20 09/17/20 22:59 06:59 14:59 Intake Total 590 / 1945 460 / 2405 50 / 50 Output Total 400 / 400 675 / 1075 Balance 190 / 1545 -215 / 1330 50 / 50 Physical Exam Const: COMMON NORMALS: no acute distress (But does appear ill) and patient oriented x3 Resp: COMMON NORMALS: normal respiratory effort OTHER: Decreased air movement with very minimal bibasilar Rales. Cardio: RHYTHM: abnormal rhythm irregularly irregular HEART SOUNDS: Abnormal heart opening sounds OTHER: No lower extremity edema GI: COMMON NORMALS: Normal to inspection, nondistended, normoactive bowel sounds present, Soft to palpation and non-tender PALPATION: Yes Soft to palpation Neuro: COMMON NORMALS: patient oriented x3 and no focal motor deficits Urinary Catheter Management^: Kowalski: Cath Placed During This Visit: yes, but has since been removed by the nurse Reason for Continuing Indwelling Catheter: Accurate Measurement of Urinary Output in Critically Ill Patients Urinary Catheter Date of Insertion: 09/14/20 Urinary Catheter Time of Insertion: : Date Urinary Catheter Removed: 09/15/20 Time Urinary Catheter Discontinued: 00:00 Data : 09/17/20 03:06 09/17/20 03:06 A&P Assessment and plan (1) Sepsis: Status: Acute (2) Acute respiratory distress: Status: Acute (3) Pneumonia due to 2019 novel coronavirus: Status: Acute (4) Hypoxia: Status: Acute (5) BRAD (acute kidney injury): Prerenal. Status: Acute (6) Atrial fibrillation with rapid ventricular response: Status: Acute (7) Chronic diastolic heart failure: Status: Acute (8) Abnormal transaminases: Status: Acute (9) Dehydration with hyponatremia: Status: Acute (10) Hypokalemia: Status: Acute Additional A&P Information Sepsis GERD acute hypoxic respiratory failure secondary to COVID-19 pneumonia: Moderate to severe disease. Sepsis respiratory met with tachycardia, tachypnea, leukocytosis, Patient requiring 6 to 7 L of high flow nasal cannula to maintain saturation over 90%. Even required BiPAP overnight. Patient tired appearing. Move patient to viral ICU. Switch Decadron 6 mg from oral to IV daily. Patient does have abnormal transaminases and BRAD with creatinine of 1.6. It was discussed with the patient that unfortunately remdesivir has not been approved in patients with abnormal liver enzymes and BRAD but can be given if benefits outweigh the risk factors. Patient states he understands and has agreed to be started on remdesivir. Start patient on remdesivir and will finish a 5-day course at least. We will continue to monitor liver enzymes and kidney functions. Vitamin C, zinc. Tessalon Perles. Aggressive pulmonary toilet with incentive spirometry and flutter valve. Start patient on Advair, Spiriva. BiPAP overnight. Patient does have a component of sleep apnea as well given the body habitus. Patient CTA done on admission negative for pulmonary embolism but D-dimer elevated. For now start patient on Eliquis 5 mg twice daily. Patient is agreeable to start the medication. Anticoagulation will be beneficial as well with atrial fibrillation and background. Inflammatory markers worsening today with worsening of CRP, fibrinogen. Cannot rule out superadded bacterial infection. MRSA swab negative, urine Legionella, bacterial antigen negative. Procalcitonin within normal limits. For now continue vancomycin and Zosyn as patient is clinically ill. We will continue to monitor blood cultures, sputum culture and urine culture and change treatment accordingly. BRAD:Most likely secondary to sepsis from severe infection in combination with hydrochlorothiazide and KERI inhibitor at baseline. Patient appears mildly dehydrated on examination. Start patient on very gentle hydration with normal saline at 50 cc/h. Check urine lites, urine eosinophils. Medical reconciliation done for nephrotoxic drugs. Continue to monitor BMP and electrolytes daily for now. High anion metabolic acidosis: Most likely secondary to BRAD. We will continue to monitor. Atrial fibrillation: Patient takes metoprolol 100 mg twice daily. Overnight patient was digoxin loaded dose well. Dig levels on the lower side. For now continue with metoprolol 50 mg twice daily for softer blood pressures. Fluid as above. Continue to monitor. If required can increase the dose of metoprolol to home dose once blood pressure better. Eliquis for anticoagulation. Hypertension: Goal blood pressure less than 140/90 mmHg with mean over 65. Blood pressure soft. For now continue holding other antihypertensives including lisinopril, hydrochlorothiazide but will continue with metoprolol given atrial fibrillation with endpoint ventricular response. Last echocardiogram done in August 2020 shows an EF of 50% with global mild LV hypokinesia, mildly increased LA and RA size. Have confirmed with patient and is agreeable for Kowalski catheterization for strict input output charting. Given multiple comorbidities with atrial fibrillation and borderline blood pressures with increasing requirement of oxygen supplementation to maintain saturation over 90% in setting of severe fatigue will transfer patient to viral ICU. Continue other chronic medications. Full code Cardiac diet DVT prophylaxis Eliquis for now. PLAN: We will continue current antibiotics and remdesivir. Since patient's reflux improved and hemoglobin and platelets are stable will restart patient on dexamethasone. Will discuss with counter intelligence tomorrow as we may require bronchoscopy. Dr. Dao will be available for consultation tomorrow. Continue monitoring heart rate and blood pressure and adjust metoprolol dose as needed. Patient apparently was taking 100 mg twice daily at home but so far doing well on 75 mg twice daily. Attestations Medical Necessity Statement*: Patient with respiratory failure requires close ICU monitoring and treatment. Coding Level of Care Code Acute Digital Media Representative for [facility] Diagnoses Sepsis A41.9 Acute respiratory distress R06.03 Pneumonia due to 2019 novel coronavirus U07.1; J12.89 Hypoxia R09.02 BRAD (acute kidney injury) N17.9 Atrial fibrillation with rapid ventricular response I48.91 Chronic diastolic heart failure I50.32 Abnormal transaminases R74.8 Dehydration with hyponatremia E86.0; E87.1 Hypokalemia E87.6
[2020-09-17 11:58] LABS: Glucose Point of Care 117 mg/dL (70-110)
[2020-09-17] MEDS: vancomycin 1,000 MG in sodium chloride 0.9% 250 ML 250 MG IV (12:59)
[2020-09-17] MEDS: dexamethasone 4 mg/mL INJ 6 MG IVP (14:02)
[2020-09-17 16:45] LABS: Glucose Point of Care 114 mg/dL (70-110)
[2020-09-17] MEDS: atorvastatin 40 mg Tablet 20 MG PO (17:15)
[2020-09-17] MEDS: remdesivir 100 MG in sodium chloride 0.9% (100 ml) 100 ML IV (18:05)
[2020-09-17 21:08] LABS: Glucose Point of Care 176 mg/dL (70-110)
[2020-09-18] VITALS (21 sets, daily range): BP systolic 96–128; BP diastolic 57–92; PULSE 83–117; RESP 15–29; TEMP 36.4–36.9; O2SAT 85–95
[2020-09-18] MEDS: vancomycin 1,000 MG in sodium chloride 0.9% 250 ML 250 MG IV ×2 (00:02→14:52)
[2020-09-18] MEDS: levothyroxine 25 mcg Tablet PO (04:48)
[2020-09-18] MEDS: piperacillin-tazobactam 3.375 GM in sodium chloride 0.9% (plus) 50 ML IV ×3 (04:48→20:08)
[2020-09-18] MEDS: levothyroxine 112 mcg Tablet PO (04:48)
[2020-09-18] MEDS: tamsulosin 0.4 mg Capsule PO ×2 (06:16→17:03)
[2020-09-18] MEDS: metoprolol tartrate 50 mg Tablet 75 MG PO ×2 (06:16→17:03)
[2020-09-18] MEDS: pantoprazole DR 40 mg Tablet PO ×2 (06:16→17:03)
[2020-09-18 08:02] LABS: Glucose Point of Care 126 mg/dL (70-110)
[2020-09-18] MEDS: apixaban 5 mg Tablet PO ×2 (08:15→17:03)
[2020-09-18] MEDS: potassium chloride ER 20 mEq Tablet 40 MEQ PO (08:15)
[2020-09-18] MEDS: benzonatate 100 mg Capsule PO ×3 (08:15→20:08)
--- NOTE | 2020-09-18 11:14 | PM.PN ---
Subjective Subjective: Interval history: Patient again mentions that he wants to go home. He is saturating in the high 80s to low 90s on 5 L by nasal cannula today. Reports that he continues to have good appetite and oral intake. Denies cough. Clinically he definitely looks better. He denies chest pain or abdominal pain. He had good bowel movement without evidence of melena or hematochezia. Heart rate is well controlled. Vitals/I&O/Wt Last Vital Signs Temp 97.5 F L 09/18/20 08:00 Pulse 112 H 09/18/20 10:00 Resp 17 09/18/20 10:00 BP 107/58 09/18/20 10:00 Pulse Ox 88 L 09/18/20 10:00 09/17/20 09/18/20 09/18/20 22:59 06:59 14:59 Intake Total 780 / 1670 400 / 2070 360 / 360 Output Total 650 / 925 200 / 1125 Balance 130 / 745 200 / 945 360 / 360 Physical Exam Const: COMMON NORMALS: no acute distress (But does appear ill) and patient oriented x3 Resp: COMMON NORMALS: normal respiratory effort OTHER: Decreased air movement with very minimal bibasilar Rales. Cardio: RHYTHM: abnormal rhythm irregularly irregular HEART SOUNDS: Abnormal heart opening sounds OTHER: No lower extremity edema GI: COMMON NORMALS: Normal to inspection, nondistended, normoactive bowel sounds present, Soft to palpation and non-tender PALPATION: Yes Soft to palpation Neuro: COMMON NORMALS: patient oriented x3 and no focal motor deficits Urinary Catheter Management^: Kowalski: Cath Placed During This Visit: yes, but has since been removed by the nurse Reason for Continuing Indwelling Catheter: Accurate Measurement of Urinary Output in Critically Ill Patients Urinary Catheter Date of Insertion: 09/14/20 Urinary Catheter Time of Insertion: 12: Date Urinary Catheter Removed: 09/15/20 Time Urinary Catheter Discontinued: 00:00 Data : 09/17/20 03:06 09/17/20 03:06 A&P Assessment and plan (1) Sepsis: Status: Acute (2) Acute respiratory distress: Status: Acute (3) Pneumonia due to 2019 novel coronavirus: Status: Acute (4) Hypoxia: Status: Acute (5) BRAD (acute kidney injury): Prerenal. Status: Acute (6) Atrial fibrillation with rapid ventricular response: Status: Acute (7) Chronic diastolic heart failure: Status: Acute (8) Abnormal transaminases: Status: Acute (9) Dehydration with hyponatremia: Status: Acute (10) Hypokalemia: Status: Acute Additional A&P Information Sepsis GERD acute hypoxic respiratory failure secondary to COVID-19 pneumonia: Moderate to severe disease. Sepsis respiratory met with tachycardia, tachypnea, leukocytosis, Patient requiring 6 to 7 L of high flow nasal cannula to maintain saturation over 90%. Even required BiPAP overnight. Patient tired appearing. Move patient to viral ICU. Switch Decadron 6 mg from oral to IV daily. Patient does have abnormal transaminases and BRAD with creatinine of 1.6. It was discussed with the patient that unfortunately remdesivir has not been approved in patients with abnormal liver enzymes and BRAD but can be given if benefits outweigh the risk factors. Patient states he understands and has agreed to be started on remdesivir. Start patient on remdesivir and will finish a 5-day course at least. We will continue to monitor liver enzymes and kidney functions. Vitamin C, zinc. Tessalon Perles. Aggressive pulmonary toilet with incentive spirometry and flutter valve. Start patient on Advair, Spiriva. BiPAP overnight. Patient does have a component of sleep apnea as well given the body habitus. Patient CTA done on admission negative for pulmonary embolism but D-dimer elevated. For now start patient on Eliquis 5 mg twice daily. Patient is agreeable to start the medication. Anticoagulation will be beneficial as well with atrial fibrillation and background. Inflammatory markers worsening today with worsening of CRP, fibrinogen. Cannot rule out superadded bacterial infection. MRSA swab negative, urine Legionella, bacterial antigen negative. Procalcitonin within normal limits. For now continue vancomycin and Zosyn as patient is clinically ill. We will continue to monitor blood cultures, sputum culture and urine culture and change treatment accordingly. BRAD:Most likely secondary to sepsis from severe infection in combination with hydrochlorothiazide and KERI inhibitor at baseline. Patient appears mildly dehydrated on examination. Start patient on very gentle hydration with normal saline at 50 cc/h. Check urine lites, urine eosinophils. Medical reconciliation done for nephrotoxic drugs. Continue to monitor BMP and electrolytes daily for now. High anion metabolic acidosis: Most likely secondary to BRAD. We will continue to monitor. Atrial fibrillation: Patient takes metoprolol 100 mg twice daily. Overnight patient was digoxin loaded dose well. Dig levels on the lower side. For now continue with metoprolol 50 mg twice daily for softer blood pressures. Fluid as above. Continue to monitor. If required can increase the dose of metoprolol to home dose once blood pressure better. Eliquis for anticoagulation. Hypertension: Goal blood pressure less than 140/90 mmHg with mean over 65. Blood pressure soft. For now continue holding other antihypertensives including lisinopril, hydrochlorothiazide but will continue with metoprolol given atrial fibrillation with endpoint ventricular response. Last echocardiogram done in August 2020 shows an EF of 50% with global mild LV hypokinesia, mildly increased LA and RA size. Have confirmed with patient and is agreeable for Kowalski catheterization for strict input output charting. Given multiple comorbidities with atrial fibrillation and borderline blood pressures with increasing requirement of oxygen supplementation to maintain saturation over 90% in setting of severe fatigue will transfer patient to viral ICU. Continue other chronic medications. Full code Cardiac diet DVT prophylaxis Eliquis for now. PLAN: I will continue patient's current monitoring and treatment in viral ICU for 1 more day and if oxygen requirements further improves I will transfer patient to medical arellano. Repeat labs in a.m. including inflammatory markers. If not improving will consider pulmonary consultation with bronchoscopy. So far he appears to be gradually getting better. Attestations Medical Necessity Statement*: Patient with acute hypoxic respiratory failure requires close ICU monitoring and treatment. 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
--- NOTE | 2020-09-18 13:20 | PC.NURSE ---
Taking over care of patient from KUMAR Hall.
[2020-09-18 14:05] LABS: Glucose Point of Care 136 mg/dL (70-110)
[2020-09-18] MEDS: dexamethasone 4 mg/mL INJ 6 MG IVP (15:02)
[2020-09-18 16:26] LABS: Glucose Point of Care 117 mg/dL (70-110)
--- NOTE | 2020-09-18 16:32 | DCPLANNER ---
Updated IM and left message for his ; Alivia.
[2020-09-18] MEDS: atorvastatin 40 mg Tablet 20 MG PO (17:03)
[2020-09-18] MEDS: remdesivir 100 MG in sodium chloride 0.9% (100 ml) 100 ML IV (17:04)
--- NOTE | 2020-09-18 18:18 | PC.NURSE ---
contacted MD Valerio regarding unable to draw patients vanc trough. 2 nurses attempted and unsuccessful and then called lab and they also were not able to draw blood. MD notified and stated to start vancomycin and draw vanc trough before next dose (at midnight).
[2020-09-18 20:20] LABS: Glucose Point of Care 133 mg/dL (70-110)
[2020-09-19] VITALS (17 sets, daily range): BP systolic 85–154; BP diastolic 52–90; PULSE 87–109; RESP 16–28; TEMP 36.5–36.8; O2SAT 86–96
[2020-09-19] MEDS: vancomycin 1,000 MG in sodium chloride 0.9% 250 ML 250 MG IV (01:00)
[2020-09-19] MEDS: levothyroxine 25 mcg Tablet PO (04:31)
[2020-09-19] MEDS: levothyroxine 112 mcg Tablet PO (04:31)
[2020-09-19] MEDS: piperacillin-tazobactam 3.375 GM in sodium chloride 0.9% (plus) 50 ML IV (04:31)
[2020-09-19 05:34] LABS: Basophils % 0.1 %; Hematocrit 42.9 % (42.0-52.0); Hemoglobin 14.3 g/dL (11.7-16.6); Lymphocytes # 0.5 10^3/uL (0.8-4.8); Mean Corpuscular HGB Conc 33.3 g/dL (30.0-36.0); Mean Corpuscular Hemoglobin 29.4 pg (28.0-34.0); Mean Corpuscular Volume 88.1 fL (80-94); Mean Platelet Volume 10.8 fL (7.4-10.4); Monocytes # 0.4 10^3/uL (0.2-0.9); Monocytes % 4.2 %; Neutrophils # 8.43 10^3/uL (1.8-7.7); Neutrophils % 90.1 %; Nucleated Red Blood Cells % 0 %; Platelet Count 205 10^3/cmm (130-400); Red Blood Count 4.87 10^6/uL (4.1-5.3); White Blood Count 9.4 10^3/uL (4.0-10.0)
[2020-09-19] MEDS: metoprolol tartrate 50 mg Tablet 75 MG PO (05:43)
[2020-09-19] MEDS: pantoprazole DR 40 mg Tablet PO (05:43)
[2020-09-19] MEDS: tamsulosin 0.4 mg Capsule PO (05:43)
[2020-09-19 05:47] LABS: D Dimer 0.94 ug/mIFEU (0-0.59)
[2020-09-19 05:53] LABS: Alanine Aminotransferase 58 U/L (0-41); Albumin Level 2.4 g/dL (3.5-5.2); Alkaline Phosphatase 61 IU/L (40-130); Blood Urea Nitrogen 16 mg/dL (8-23); Calcium 7.7 mg/dL (8.5-10.5); Carbon Dioxide 22 mmol/L (22-29); Chloride 102 mmol/L (98-107); Globulin 2.6 g/dL (1.3-4.6); Glucose 122 mg/dL (65-115); Magnesium 1.6 mg/dL (1.7-2.3); Osmolality Calculated 280 mOsm/kg (285-295); Sodium 134 mmol/L (136-145); Total Bilirubin 0.7 mg/dL (0.15-1.2)
[2020-09-19 05:54] LABS: C Reactive Protein 63.1 mg/L (0.0-4.9); Ferritin 570 ng/mL (30-400)
[2020-09-19 05:55] LABS: Anion Gap 14.1 (5-19); Aspartate Amino Transferase 42 U/L (0-40); Lactate Dehydrogenase 340 U/L (135-225); Potassium 4.1 mmol/L (3.5-5.1)
--- NOTE | 2020-09-19 06:00 | XR_ITS ---
WS: [id number] XR chest 1V portable [id number] REASON FOR EXAM: covid FINDINGS: Compared to the examination of 09/17/2020 the groundglass and interstitial infiltrates in the right l ysabel are becoming more dense and linear, a finding seen in the mid-late Covid pneumonitis. The left lo wer lung is relatively unchanged with blunting of the costophrenic angle. No new finding. XR/XR chest 1V portable [id number] IMPRESSION: Evolving pneumonitis as above.
[2020-09-19 06:37] LABS: Glucose Point of Care 99 mg/dL (70-110)
[2020-09-19 07:45] LABS: Glucose Point of Care 100 mg/dL (70-110)
[2020-09-19] MEDS: benzonatate 100 mg Capsule PO (07:55)
[2020-09-19] MEDS: apixaban 5 mg Tablet PO (07:55)
--- NOTE | 2020-09-19 10:16 | P.DS_ITS ---
Discharge Providers Date of Admission: 09/13/20 20:12 Date of Discharge: September 19, 2020 Attending Provider at Admission: Susan Barahona MD Attending Provider at Discharge: Dimitri Valerio MD Primary Care Provider: Emil Oliveira DO Diagnoses at Discharge Discharge Diagnosis (1) Sepsis: Status: Acute (2) Pneumonia due to 2019 novel coronavirus: Status: Acute Permanent problem details: Bacterial pneumonia including postobstructive pneumonia cannot be ruled out. (3) Hypoxia: Status: Acute (4) BRAD (acute kidney injury): Status: Acute (5) Atrial fibrillation with rapid ventricular response: Status: Acute (6) Chronic diastolic heart failure: Status: Acute (7) Abnormal transaminases: Status: Acute (8) Dehydration with hyponatremia: Status: Acute (9) Hypokalemia: Status: Acute (10) Acute respiratory failure with hypoxia: Status: Acute Permanent problem details: Present on admission. Reason for Visit Reason for Visit: covid+/sob Hospital Course Hospital Course Patient presented with acute hypoxic respiratory failure and diagnosed with COVID-19 pneumonia. Bacterial coinfection was also highly suspected and patient was treated with Zosyn and vancomycin in addition to remdesivir and dexamethasone. Patient gradually improved including oxygen requirement. Today he was saturating in the low 90s on 4 L by nasal cannula. Patient adamantly wants to go home. He does not want to stay for further medication adjustment. Reports that he feels much better. Reports that he cannot sleep here. Sleeping medicine was offered but patient does not want to stay. Reports that he lives with his and daughter and feels safe to go home. He qualified for oxygen 4 L at rest and 6 L with ambulation. He usually was using 2 L at night with his CPAP. He is in chronic atrial fibrillation and is anticoagulated with Eliquis. His imaging was concerning for viral pneumonia and chest x-ray showed right- sided density with potential bacterial pneumonia and/or postobstructive process in consideration. Patient will be discharged on Levaquin for 4 more days. I will request outpatient follow-up with pulmonary service as patient will need to be closely monitored with imaging repeated and potentially may require bronchoscopy. I will discontinue chlorthalidone but continue patient's Lasix. His oral intake much improved. He is urinating without any difficulty. He had normal bowel movement without evidence of melena or hematochezia. This morning patient denies any chest pain or abdominal pain. Reports that his breathing is comfortable. Physical Exam Const: COMMON NORMALS: no acute distress and patient oriented x3 Resp: COMMON NORMALS: normal respiratory effort and clear to auscultation bilaterally AUSCULTATION: clear to auscultation bilaterally Cardio: RHYTHM: abnormal rhythm irregularly irregular OTHER: No lower extremity edema GI: COMMON NORMALS: Normal to inspection, nondistended, normoactive bowel sounds present, Soft to palpation and non-tender PALPATION: Yes Soft to palpation Neuro: COMMON NORMALS: patient oriented x3 and no focal motor deficits Urinary Catheter Management^: Kowalski: Cath Placed During This Visit: Kowalski cath was removed. Reason for Continuing Indwelling Catheter: Accurate Measurement of Urinary Output in Critically Ill Patients Urinary Catheter Date of Insertion: 09/14/20 Urinary Catheter Time of Insertion: : Date Urinary Catheter Removed: 09/15/20 Time Urinary Catheter Discontinued: 00:00 Discharge Data Data Completed and Pending: Completed Studies During Hospitalization Category Date Time Status CT angio chest PE protcl [id number] Stat Cat Scan 09/13/20 20:03 Completed XR chest 1V brittny ble [id number] Q48H Exams 09/15/20 06:00 Completed XR chest 1V brittny ble [id number] Q48H Exams 09/17/20 06:00 Completed XR chest 1V brittny ble [id number] Q48H Exams 09/19/20 06:00 Completed XR chest 1V brittny ble [id number] Stat Exams 09/13/20 18:08 Completed Pending at discharge Category Date Time Status Complete Blood Co unt w/Auto AM LABS Lab 09/20/20 04:00 Ordered Complete Blood Co unt w/Auto AM LABS Lab 09/21/20 04:00 Ordered Comprehensive Met abolic Panel AM LA BS Lab 09/20/20 04:00 Ordered Comprehensive Met abolic Panel AM LA BS Lab 09/21/20 04:00 Ordered Magnesium AM LABS Lab 09/20/20 04:00 Ordered Magnesium AM LABS Lab 09/21/20 04:00 Ordered Sputum Culture an d Gram Stain Routi ne Lab 09/15/20 10:08 Uncollected Sputum Culture an d Gram Stain Stat Lab 09/13/20 18:08 Uncollected Labs from last 24 hours 09/19/20 09/19/20 09/19/20 07:15 06:34 03:50 WBC RBC Hgb Hct MCV MCH MCHC RDW Plt Count MPV Neut % (Auto) Lymph % (Auto) Gentry % (Auto) Eos % (Auto) Baso % (Auto) Neut # (Auto) Lymph # (Auto) Gentry # (Auto) Eos # (Auto) Baso # (Auto) Nucleated RBC % (a uto) Nucleated RBCs # D-Dimer Sodium Potassium Chloride Carbon Dioxide Anion Gap BUN Creatinine GFR Calculation Glucose POC Glucose 100 99 Calculated Osmolal ity Calcium Magnesium Ferritin 570 H Total Bilirubin AST ALT Alkaline Phosphata se Lactate Dehydrogen ase 340 H C-Reactive Protein Total Protein Albumin Globulin Vancomycin Trough 09/19/20 09/19/20 09/19/20 03:50 03:50 03:50 WBC RBC Hgb Hct MCV MCH MCHC RDW Plt Count MPV Neut % (Auto) Lymph % (Auto) Gentry % (Auto) Eos % (Auto) Baso % (Auto) Neut # (Auto) Lymph # (Auto) Gentry # (Auto) Eos # (Auto) Baso # (Auto) Nucleated RBC % (a uto) Nucleated RBCs # D-Dimer 0.94 H Sodium 134 L Potassium 4.1 Chloride 102 Carbon Dioxide 22 Anion Gap 14.1 BUN 16 Creatinine 0.6 L GFR Calculation Not Reportable Glucose 122 H POC Glucose Calculated Osmolal ity 280 L Calcium 7.7 L Magnesium 1.6 L Ferritin Total Bilirubin 0.7 AST 42 H ALT 58 H Alkaline Phosphata se 61 Lactate Dehydrogen ase C-Reactive Protein 63.1 H Total Protein 5.0 L Albumin 2.4 L Globulin 2.6 Vancomycin Trough 09/19/20 09/18/20 09/18/20 03:50 23:25 20:15 WBC 9.4 RBC 4.87 Hgb 14.3 Hct 42.9 MCV 88.1 MCH 29.4 MCHC 33.3 RDW 14.0 Plt Count 205 MPV 10.8 H Neut % (Auto) 90.1 Lymph % (Auto) 5.0 Gentry % (Auto) 4.2 Eos % (Auto) 0.0 Baso % (Auto) 0.1 Neut # (Auto) 8.43 H Lymph # (Auto) 0.5 L Gentry # (Auto) 0.4 Eos # (Auto) 0.0 Baso # (Auto) 0.0 Nucleated RBC % (a uto) 0 Nucleated RBCs # 0.0 D-Dimer Sodium Potassium Chloride Carbon Dioxide Anion Gap BUN Creatinine GFR Calculation Glucose POC Glucose 133 Calculated Osmolal ity Calcium Magnesium Ferritin Total Bilirubin AST ALT Alkaline Phosphata se Lactate Dehydrogen ase C-Reactive Protein Total Protein Albumin Globulin Vancomycin Trough 14.0 09/18/20 09/18/20 09/18/20 16:23 12:45 11:25 WBC RBC Hgb Hct MCV MCH MCHC RDW Plt Count MPV Neut % (Auto) Lymph % (Auto) Gentry % (Auto) Eos % (Auto) Baso % (Auto) Neut # (Auto) Lymph # (Auto) Gentry # (Auto) Eos # (Auto) Baso # (Auto) Nucleated RBC % (a uto) Nucleated RBCs # D-Dimer Sodium Potassium Chloride Carbon Dioxide Anion Gap BUN Creatinine GFR Calculation Glucose POC Glucose 117 Calculated Osmolal ity Calcium Magnesium Ferritin Total Bilirubin AST ALT Alkaline Phosphata se Lactate Dehydrogen ase C-Reactive Protein Total Protein Albumin Globulin Vancomycin Trough Cancelled Cancelled 09/18/20 11:15 WBC RBC Hgb Hct MCV MCH MCHC RDW Plt Count MPV Neut % (Auto) Lymph % (Auto) Gentry % (Auto) Eos % (Auto) Baso % (Auto) Neut # (Auto) Lymph # (Auto) Gentry # (Auto) Eos # (Auto) Baso # (Auto) Nucleated RBC % (a uto) Nucleated RBCs # D-Dimer Sodium Potassium Chloride Carbon Dioxide Anion Gap BUN Creatinine GFR Calculation Glucose POC Glucose 136 Calculated Osmolal ity Calcium Magnesium Ferritin Total Bilirubin AST ALT Alkaline Phosphata se Lactate Dehydrogen ase C-Reactive Protein Total Protein Albumin Globulin Vancomycin Trough Vitals: Last Vital Signs Temp 98.2 F 09/19/20 06:00 Pulse 93 09/19/20 08:41 Resp 18 09/19/20 08:37 BP 109/74 09/19/20 08:00 Pulse Ox 86 L 09/19/20 10:11 Discharge Plan Discharge Patient Disposition: Home Condition: Stable Prescriptions: New fluticasone propion-salmeterol [Advair Diskus] 250-50 mcg/dose Blister With Device 1 puff inhalation BID.RESPIRATORY Qty: 1 RF: 0 levofloxacin 750 mg Tablet 750 mg PO DAILY Qty: 4 RF: 0 albuterol sulfate [Ventolin HFA] 90 mcg/actuation Hfa Aerosol Inhaler 2 puff inhalation Q4H.RESPIRATORY PRN (Reason: Shortness Of Breath) Qty: 1 RF: 0 Eliquis 5 mg Tablet 5 mg PO BID Qty: 60 RF: 0 Spiriva with HandiHaler 18 mcg Capsule, W/Inhalation Device 18 mcg inhalation DAILY.RESPIRATORY Qty: 1 RF: 0 Continued hydrocodone-acetaminophen [[place]] 10-325 mg tablet 1 tab PO Q6H PRN (Reason: pain) 7 Days Qty: 30 RF: 0 lisinopril 40 mg tablet 40 mg PO DAILY@06 RF: 0 metoprolol tartrate 100 mg tablet 100 mg PO BID@,18 RF: 0 furosemide 40 mg tablet 40 mg PO .PRN RF: 0 levothyroxine [Synthroid] 137 mcg Tablet 137 mcg PO DAILY@04 RF: 0 simvastatin 40 mg Tablet 40 mg PO DAILY@18 RF: 0 modafinil 200 mg Tablet 200 mg PO DAILY@06 RF: 0 pantoprazole 40 mg Tablet,Delayed Release (Dr/Ec) 40 mg PO BID@ RF: 0 cholecalciferol (vitamin D3) [Vitamin D3] 50 mcg (2,000 unit) Capsule 2,000 unit PO DAILY@06 RF: 0 Ozempic 1 mg/dose (2 mg/1.5 mL) Pen Injector 1 mg SUBCUT Q7D RF: 0 tamsulosin 0.4 mg capsule 0.4 mg PO BID@18 RF: 0 dexamethasone 6 mg tablet 6 mg PO DAILY Qty: 5 RF: 0 albuterol sulfate 2.5 mg /3 mL (0.083 %) solution for nebulization 2.5 mg inhalation Q6H PRN (Reason: shortness of breath or wheezing) Qty: 90 RF: 0 potassium chloride 8 mEq capsule, extended release 8 meq PO DAILY PRN (Reason: unknown) RF: 0 Discontinued doxycycline hyclate 100 mg capsule 100 mg PO BID@,18 RF: 0 chlorthalidone 25 mg tablet 25 mg PO DAILY@06 RF: 0 Discharge Orders: Discharge Order (Routine); Ordered 09/19/20 Ordered By: Dimitri Valerio Other Ambulatory Orders: DME: Oxygen (Order) Location: None Selected Ordered By: Dimitri Valerio Referrals: Keny Dao MD [Physician] - 1 week Emil Oliveira DO [Primary Care Provider] - 4-7 days Discharge Diet: Usual diet Discharge Activity: Increase activity as tolerated Activity Restrictions/Additional Instructions: Please call your doctor or present to emergency department if your condition worsens or you develop diarrhea, lightheadedness, fatigue or see blood in your stool or black stool. Please keep your blood pressure and heart rate log 3 times daily to present to primary care physician next visit for medication adjustment. Please note that you require large amount of oxygen and still remain at risk for worsening. If your symptoms worsen please present back to ER. Please continue dexamethasone for 3 more days. 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
[2020-09-19] MEDS: magnesium sulfate premix 2 GM/50 ML PIGGYBACK IV (10:39)
[2020-09-19] MEDS: levoFLOXacin 750 mg Tablet PO (10:39)
[2020-09-19 15:59] LABS: Glucose Point of Care 143 mg/dL (70-110)
--- NOTE | 2020-09-24 13:55 | PC.SOCIAL ---
Follow up call completed. Patient indicates he is doing some better but still not feeling well. He is still weak but weakness improving slowly since discharge. He is wearing O2 and checked O2 level which was 94%. We have reviewed adding activity slowly and taking more breaks in between to avoid excessive fatigue and build strength gradually. We have reviewed each medication. Patient was advised to rinse mouth out after inhaler use to prevent oral yeast from growing. He verbalized understanding. We have reviewed upcoming appts. He has one for 10/17/[address] Dao and a virtual visit with PCP on 09/26/20. We reviewed to wear mask in public if out, maintain 6 ft social distancing, wash hands for 20 seconds at a time, and do disinfect highly utilized surfaces especially during the holidays. We reviewed to monitor HR and BP at least twice daily but best if can do so 3 times a day. He has not been doing this but will attempt to do so. He indicates receiving excellent care while here. He is interested in reviewing the plasma information so this will be sent to patient.
== END 2020-09-19 13:29 | disposition home or self-care (01) | DRG 871 ==
LOC: ER 20:05 → CSU 20:30 → ICU 09-14 14:42
PROVIDERS: Student in an Organized Health Care Education/Training Program; Admitting Provider Internal Medicine; Emergency Provider Student in an Organized Health Care Education/Training Program; PCP Emergency Medicine Emergency Medical Services; Visit Provider Internal Medicine
DX: A41.9 Sepsis, unspecified organism (principal); U07.1 COVID-19; J12.89 Other viral pneumonia; J96.01 Acute respiratory failure with hypoxia; E87.1 Hypo-osmolality and hyponatremia; I50.32 Chronic diastolic (congestive) heart failure; N17.9 Acute kidney failure, unspecified; I48.19 Other persistent atrial fibrillation; Z68.42 Body mass index [BMI] 45.0-49.9, adult; J44.0 Chronic obstructive pulmonary disease with (acute) lower respiratory infection; E86.0 Dehydration; E87.6 Hypokalemia; Z79.01 Long term (current) use of anticoagulants; E03.9 Hypothyroidism, unspecified; E78.5 Hyperlipidemia, unspecified; N40.0 Benign prostatic hyperplasia without lower urinary tract symptoms; I73.9 Peripheral vascular disease, unspecified; E66.01 Morbid (severe) obesity due to excess calories
CPT/HCPCS: 12345; 36415; 36416; 36600; 51702; 71045; 71275; 80053; 80162; 80202; 81001; 82436; 82550; 82728; 82803; 82962; 83036; 83540; 83550; 83605; 83615; 83735; 83880; 84133; 84145; 84300; 84443; 84484; 85025; 85378; 85384; 86140; 87040; 87426; 87449; 87804; 93005; 94640; 94660; 96372; 96375; 99282; J1100; J1160; J1644; J1815; J2405; J2543; J3370; J3475; J7030; J7050; J8540; Q9967

== ENCOUNTER 2020-10-04 13:00 | Inpatient (IN) | payer OTHER, MEDICARE, SELFPAY ==
[2020-10-04] VITALS (8 sets, daily range): BP systolic 78–116; BP diastolic 58–76; PULSE 74–90; RESP 16–21; TEMP 36.4–37; O2SAT 92–97; BMI 45.6
--- NOTE | 2020-10-04 14:29 | W.ED.DIZZY ---
HPI - Dizziness General: Chief Complaint: Dizziness Stated Complaint: LOW BP, NAUSEA, HEADACHE, DIZZINESS Time Seen by Provider: 10/04/20 13:23 History of Present Illness: HPI Narrative: 74-year-old male presents emergency room complaining lightheadedness dizziness worse when he initially stands up. He was diagnosed with Covid on 1128 states he has been ill ever since. He was hospitalized from the through the of this month. His blood pressures at home have been as low as 73/59 at times. He says short of breath dizziness and the lightheadedness when he first stands up he usually is on 4 L by nasal cannula. He states he has been very weak and had difficulty getting around since he had Covid. MD elicited complaint: dizziness and lightheadedness Onset (ago): hour(s) Timing: intermittent Severity: moderate Description: lightheadedness and near-syncope Context: change in body position History of similar symptoms: No Exacerbating factors: change in body position and standing Relieving factors: remaining still Associated symptoms: Reports cough and nausea; Denies change in hearing, chest pain, chills, diaphoresis, ear discharge, ear pressure, fevers/chills, headache(s), malaise, nasal congestion, palpitations, rash, short of breath, syncope, tinnitus, vomiting or weakness Associated neuro symptoms: Deny confusion, difficulty speaking, dysphagia, diplopia, extremity weakness, facial numbness, facial weakness, gait changes, numbness in extremities or visual changes Review of Systems Const: Denies: chills, malaise or diaphoresis ENMT: Denies: ear discharge, change in hearing, tinnitus or nasal congestion Card: Denies: chest pain, palpitations or syncope Resp: Denies: dyspnea, productive cough or non-productive cough GI: Reports: nausea; Denies: vomiting or dysphagia : Denies: flank pain, dysuria, urinary frequency or urinary urgency Skin/Breast: Denies: rash or pruritus Neuro: Denies: headache(s), numbness in extremities or confusion PFSH ED PFSH: Medical History Atrial fibrillation status post cardioversion Benign prostatic hyperplasia Cerebral arterial aneurysm Chronic diastolic heart failure Chronic diastolic heart failure secondary to coronary artery disease Dyslipidemia Hyperlipidemia Hypertension Hypothyroidism Intermittent atrial fibrillation Narcolepsy Peripheral arterial disease Right fibular fracture Shortness of breath on exertion Spontaneous hemorrhage This patient blood into the right calf muscle and had hematuria with Xarelto Surgical History History of knee surgery S/P rotator cuff repair Family History Other CAD (coronary artery disease) Cancer Hypertension Stroke Social History Smoking and tobacco status: never smoked Alcohol intake: never Household members: spouse Housing: House Physical Exam Const: COMMON NORMALS: no acute distress GENERAL APPEARANCE: cooperative and comfortable ORIENTATION/CONSCIOUSNESS: Yes awake, Yes oriented to person, Yes oriented to place and Yes oriented to time HENMT: COMMON NORMALS: normocephalic, atraumatic and hearing grossly normal bilaterally HEAD & SCALP: normocephalic and atraumatic Neck/C-Spine: COMMON NORMALS: no JVD Resp: AUSCULTATION: wheezes Cardio: COMMON NORMALS: no JVD, regular rate, regular rhythm and No murmurs present (Cardio) RATE: regular rate RHYTHM: regular rhythm GI: COMMON NORMALS: Soft to palpation and No hepatosplenomegaly present AUSCULTATION: Yes normoactive bowel sounds PALPATION: Yes Soft to palpation, No Tenderness to palpation present (GI), No Guarding due to palpation present (GI) and Yes No hepatosplenomegaly present Extremity: COMMON NORMALS: normal to inspection, capillary refill normal, no clubbing, cyanosis or edema, no calf tenderness and no pedal edema Neuro: SENSORIUM/ORIENTATION: Yes oriented to person, Yes oriented to place and Yes oriented to time Skin: COMMON NORMALS: no rashes or lesions noted GENERAL SKIN EXAM: no rashes or lesions noted Course Vital Signs: Vital signs: Vital Signs Temperature 97.8 F 10/05/20 08:00 Pulse Rate 80 10/05/20 08:44 Respiratory Rate 18 10/05/20 08:41 Blood Pressure 107/76 10/05/20 08:00 Pulse Oximetry 95 10/05/20 08:41 MDM - Dizziness MDM Narrative: Medical decision making narrative: Persistent hypotension as well as development of a right-sided pneumonia which worsened from previous x-ray go ahead and cultured the patient started on Zosyn and Levaquin and admit discussed Dr. Trinidad orders written Lab Data: Labs: Lab Results 10/04/20 10/04/20 10/04/20 Range/Units 14:00 14:00 14:00 WBC 9.1 (4.0-10.0) 10^3/ uL RBC 5.42 H (4.1-5.3) 10^6/u L Hgb 16.2 (11.7-16.6) g/dL Hct 49.0 (42.0-52.0) % MCV 90.4 (80-94) fL MCH 29.9 (28.0-34.0) pg MCHC 33.1 (30.0-36.0) g/dL RDW 14.4 (12.1-15.1) % Plt Count 150 (130-400) 10^3/c mm MPV 10.3 (7.4-10.4) fL Neut % (Auto) 85.3 % Lymph % (Auto) 6.7 % [place] % (Auto) 5.7 % Eos % (Auto) 0.9 % Baso % (Auto) 0.2 % Neut # (Auto) 7.74 H (1.8-7.7) 10^3/u L Lymph # (Auto) 0.6 L (0.8-4.8) 10^3/u L [place] # (Auto) 0.5 (0.2-0.9) 10^3/u L Eos # (Auto) 0.1 (0.0-0.8) 10^3/u L Baso # (Auto) 0.0 (0.0-0.1) 10^3/u L Nucleated RBC % (a uto) 0 % Nucleated RBCs # 0.0 /100WBC Sodium 130 L (136-145) mmol/L Potassium 4.4 (3.5-5.1) mmol/L Chloride 97 L (98-107) mmol/L Carbon Dioxide 25 (22-29) mmol/L Anion Gap 12.4 (5-19) BUN 22 (8-23) mg/dL Creatinine 1.1 (0.7-1.2) mg/dL GFR Calculation Not Reportable Glucose 109 (65-115) mg/dL Calculated Osmolal ity 274 L (285-295) mOsm/k g Lactic Acid 2.3 H (0.5-2.2) mmol/L Calcium 8.6 (8.5-10.5) mg/dL Total Bilirubin 1.5 H (0.15-1.2) mg/dL AST 81 H (0-40) U/L ALT 144 H (0-41) U/L Alkaline Phosphata se 92 (40-130) IU/L Total Protein 5.8 L (6.6-8.7) g/dL Albumin 2.8 L (3.5-5.2) g/dL Globulin 3.0 (1.3-4.6) g/dL Discharge Plan Discharge Patient Disposition: Admitted As Inpatient Admit Provider: Javid Trinidad Clinical Impression: Pneumonia, Hypothyroidism, Benign prostatic hyperplasia, Intermittent atrial fibrillation, Hypotension Condition: Stable Coding Level of Care Code 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
--- NOTE | 2020-10-04 14:31 | ECG_ITS ---
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 Measurements Intervals [place] Rate: 87 P: IN: QRS: -13 QRSD: 118 T: 62 QT: 413 QTc: 498 Interpretive Statements ATRIAL FIBRILLATION POSSIBLE LATERAL MYOCARDIAL INFARCTION , PROBABLY OLD [30 ms Q WAVE IN I/aVL/V5/V6] ABNORMAL RHYTHM ECG Compared to ECG 09/13/2020 19:17:15 Myocardial infarct finding now present T-wave abnormality no longer present Electronically Signed On 10-04-2020 14:59:16 [employer] by Eduard Crawford M.D. [id number]
--- NOTE | 2020-10-04 14:31 | XR_ITS ---
WS: [id number] Exam: XR chest 1V portable [id number] Date/Time of Exam: 10/04/2020 2:31 PM Reason For Exam: dyspnea/cough Comparison 09/19/2020. Increasing infiltrates throughout the right lung since the previous study. There is also infiltrate i n the lingula unchanged. No pleural effusion or pneumothorax. The heart is enlarged. The mediastinum is not widened. XR/XR chest 1V portable [id number] IMPRESSION: 1. Increasing infiltrate in the right lung since previous study. Stable appeari ng lingular infiltrate. 2. Cardiac enlargement unchanged.
[2020-10-04 14:47] LABS: Basophils % 0.2 %; Eosinophils # 0.1 10^3/uL (0.0-0.8); Eosinophils % 0.9 %; Hemoglobin 16.2 g/dL (11.7-16.6); Lymphocytes # 0.6 10^3/uL (0.8-4.8); Lymphocytes % 6.7 %; Mean Corpuscular HGB Conc 33.1 g/dL (30.0-36.0); Mean Corpuscular Hemoglobin 29.9 pg (28.0-34.0); Mean Corpuscular Volume 90.4 fL (80-94); Mean Platelet Volume 10.3 fL (7.4-10.4); Monocytes # 0.5 10^3/uL (0.2-0.9); Monocytes % 5.7 %; Neutrophils # 7.74 10^3/uL (1.8-7.7); Neutrophils % 85.3 %; Nucleated Red Blood Cells % 0 %; Platelet Count 150 10^3/cmm (130-400); Red Blood Count 5.42 10^6/uL (4.1-5.3); Red Cell Distribution Width 14.4 % (12.1-15.1); White Blood Count 9.1 10^3/uL (4.0-10.0)
[2020-10-04 14:55] LABS: Alanine Aminotransferase 144 U/L (0-41); Albumin Level 2.8 g/dL (3.5-5.2); Alkaline Phosphatase 92 IU/L (40-130); Anion Gap 12.4 (5-19); Aspartate Amino Transferase 81 U/L (0-40); Blood Urea Nitrogen 22 mg/dL (8-23); Calcium 8.6 mg/dL (8.5-10.5); Carbon Dioxide 25 mmol/L (22-29); Chloride 97 mmol/L (98-107); Glucose 109 mg/dL (65-115); Osmolality Calculated 274 mOsm/kg (285-295); Potassium 4.4 mmol/L (3.5-5.1); Sodium 130 mmol/L (136-145); Total Bilirubin 1.5 mg/dL (0.15-1.2); Total Protein 5.8 g/dL (6.6-8.7)
[2020-10-04] MEDS: levofloxacin-dextrose 5 % 750 MG/150 ML PREMIX 100 MG IV (15:39)
[2020-10-04] MEDS: sodium chloride 0.9% 1,000 ML 999 ML IV (15:48)
[2020-10-04] MEDS: piperacillin-tazobactam 3.375 GM in sodium chloride 0.9% (plus) 50 ML IV (16:58)
[2020-10-04 17:16] LABS: Lactic Sepsis W/Reflex 2.3 mmol/L (0.5-2.2)
--- NOTE | 2020-10-04 17:47 | P.HP_ITS ---
Providers/Chief Complaint Primary Care Provider: Emil Oliveira DO Chief Complaint: LOW BP, NAUSEA, HEADACHE, DIZZINESS History of Present Illness Lupillo Silveira is a 74 year old male with a past medical history of atrial fibrillation status post cardioversion, BPH, cerebral artery aneurysm, his chronic diastolic heart failure, dyslipidemia, hypertension, hyperlipidemia, hypothyroidism, narcolepsy, peripheral arterial disease, recent hospital discharge for COVID-19 pneumonia on Eliquis, who presents presents for fatigue, malaise, shortness of breath, oxygen requirements have decreased to 4 L, however has been complaining of increased fatigue, weakness, diarrhea for the last 24 hours. No fevers, no known new exposure to COVID-19, no loss of taste, no loss of smell, no lightheadedness, no dizziness. Review of Systems Const: Reports: fatigue and malaise; Denies: fever(s) or chills Eyes: Denies: change in vision or blurry vision ENMT: Denies: nasal congestion Card: Denies: chest pain or palpitations Resp: Reports: dyspnea and non-productive cough; Denies: productive cough or wheezing GI: Denies: abdominal pain, nausea, vomiting, hematemesis, diarrhea, constipation, hematochezia or melena : Denies: flank pain, difficulty urinating, dysuria or urinary frequency Musc: Denies: neck pain or back pain Skin/Breast: Denies: rash Neuro: Denies: headache(s), dizziness or vertigo Psych: Denies: anxiety or depression Endo: Denies: polyuria or polydipsia Medications/Allergies Home Medications Medication Instructions Recorded Confirmed Last Taken Type Ozempic 1 mg SUBCUT Q7D 12/11/19 10/04/20 09/30/20 History cholecalciferol (vitamin D3) 2,000 unit PO DAILY@12/11/19 10/04/20 10/04/20 History [Vitamin D3] levothyroxine [Synthroid] 137 mcg PO DAILY@12/11/19 10/04/20 10/04/20 History modafinil 200 mg PO DAILY@12/11/19 10/04/20 10/04/20 History pantoprazole 40 mg PO BID@12/11/19 10/04/20 10/04/20 History hydrocodone 10 mg-acetaminophen 1 tab PO Q6H PRN 7 Days #30 tab 05/07/20 10/04/20 10/04/20 Rx 325 mg tablet tamsulosin 0.4 mg capsule 0.4 mg PO BID@,18 cap 07/17/20 10/04/20 10/04/20 History furosemide 40 mg tablet 40 mg PO .PRN tab 08/15/20 10/04/20 Unknown History lisinopril 40 mg tablet 40 mg PO DAILY@06 08/15/20 10/04/20 10/04/20 History metoprolol tartrate 100 mg tablet 100 mg PO BID@,18 tab 08/15/20 10/04/20 10/04/20 History potassium chloride 8 meq PO DAILY PRN 09/13/20 10/04/20 Unknown History apixaban [Eliquis] 5 mg PO BID@0600,1800 10/04/20 10/04/20 10/04/20 History rosuvastatin See Rx Instructions .ROUTE .COMPLEX 10/04/20 10/04/20 10/04/20 History Allergies Allergy/AdvReac Type Severity Reaction Status Date / Time tolmetin [From Tolectin] Allergy ALGY-Rash Verified 09/13/20 21:51 PFSH Acute PFSH: Medical History Atrial fibrillation status post cardioversion Benign prostatic hyperplasia Cerebral arterial aneurysm Chronic diastolic heart failure Chronic diastolic heart failure secondary to coronary artery disease Dyslipidemia Hyperlipidemia Hypertension Hypothyroidism Intermittent atrial fibrillation Narcolepsy Peripheral arterial disease Right fibular fracture Shortness of breath on exertion Spontaneous hemorrhage This patient blood into the right calf muscle and had hematuria with Xarelto Surgical History History of knee surgery S/P rotator cuff repair Family History Other CAD (coronary artery disease) Cancer Hypertension Stroke Social History Smoking and tobacco status: never smoked Alcohol intake: never Household members: spouse Housing: House Vitals/I&O/Wt Last Vital Signs Temp 97.9 F 10/04/20 13:12 Pulse 83 10/04/20 16:35 Resp 21 H 10/04/20 16:35 BP 116/76 10/04/20 16:35 Pulse Ox 92 10/04/20 16:35 Weight last 48 hrs Weight 136.078 kg Physical Exam Const: COMMON NORMALS: no acute distress and patient oriented x3 GENERAL APPEARANCE: cooperative and comfortable HENMT: COMMON NORMALS: normocephalic HEAD & SCALP: normocephalic Eye: COMMON NORMALS: Equal, round and reactive pupils present and EOMs intact bilaterally GENERAL EYE: appearance normal, both eyes and all related structures PUPIL: Yes Equal, round and reactive pupils present Neck/C-Spine: COMMON NORMALS: full ROM, no lymphadenopathy, no JVD and Thyroid normal THYROID: Thyroid normal Lymph: LYMPHATIC: no lymphadenopathy noted Resp: COMMON NORMALS: normal respiratory effort, No retractions, No use of accessory muscles and clear to auscultation bilaterally AUSCULTATION: clear to auscultation bilaterally Cardio: COMMON NORMALS: no JVD, regular rate, regular rhythm, S1 normal heart sound present, S2 normal heart sound present, No gallops present (Cardio), No clicks present (Cardio) and No murmurs present (Cardio) RATE: regular rate RHYTHM: regular rhythm HEART SOUNDS: S1 normal heart sound present and S2 normal heart sound present GI: COMMON NORMALS: Normal to inspection, nondistended, normoactive bowel sounds present, Soft to palpation, non-tender and No hepatosplenomegaly present PALPATION: Yes Soft to palpation and Yes No hepatosplenomegaly present Extremity: COMMON NORMALS: normal to inspection, full ROM and no pedal edema Neuro: COMMON NORMALS: patient oriented x3, CN's II-XII intact bilaterally, moves all extremities and no focal motor deficits Psych: COMMON NORMALS: mental status grossly normal, Normal thought process present and cooperative THOUGHT PROCESS: Normal thought process present Data : 10/04/20 14:00 10/04/20 14:00 Micro: Microbiology 10/04/20 17:19 Blood Culture - Preliminary Blood SPECIMEN COLLECTED 10/04/20 17:10 Blood Culture - Preliminary Blood SPECIMEN COLLECTED A&P Assessment and plan (1) Pneumonia: -Chest x-ray shows right upper lobe infiltrate, which seems the same and slightly improved compared to prior chest x-ray -We will do CT of the chest -Blood cultures, sputum cultures, repeat Covid testing -Covid isolation -Broad-spectrum antibiotics vancomycin and Zosyn for healthcare associated pneumonia given -Full code -Eliquis for DVT prophylaxis Status: Acute (2) Hypotension: -Likely secondary dehydration -We will order C. difficile Status: Acute (3) Pneumonia due to 2019 novel coronavirus: -Diagnosed on 09/03/2020, has finished treatment in isolation -Given persistent fatigue, malaise will repeat Covid testing Status: Acute (4) Chronic diastolic heart failure: -hold lasix due to dehydration Status: Acute (5) Dyslipidemia: Continue home medication Status: Acute (6) Hypothyroidism: Continue home medication Status: Acute (7) Benign prostatic hyperplasia: Continue home medication Status: Acute (8) Intermittent atrial fibrillation: Telemetry monitoring Status: Acute (9) Hyponatremia: Secondary dehydration Status: Acute (10) Transaminitis: Likely secondary to remnant COVID-19 Status: Acute Attestations Medical Necessity Statement*: Patient requires hospitalization, outpatient with observation, for right upper lobe pneumonia, dehydration, hyponatremia, Coding Level of Care Code 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
[2020-10-04 18:00] LABS: SARS Covid-2 Antigen Negative (Negative)
[2020-10-04 18:28] LABS: Reflex Lactate Order REFLEX LACTIC ORDERD
[2020-10-04] MEDS: pantoprazole DR 40 mg Tablet PO (21:29)
[2020-10-04] MEDS: sodium chloride 0.9% 1,000 ML 75 ML IV (21:34)
[2020-10-04] MEDS: vancomycin 1,500 MG/300 ML PIGGYBACK 200 MG IV (21:35)
[2020-10-04] MEDS: dexamethasone 4 mg/mL INJ 6 MG IVP (21:38)
[2020-10-05] VITALS (13 sets, daily range): BP systolic 71–107; BP diastolic 49–76; PULSE 66–96; RESP 16–20; TEMP 36.3–37.1; O2SAT 93–97
[2020-10-05] MEDS: sodium chloride 0.9% 1,000 ML 999 ML IV (01:55)
[2020-10-05] MEDS: piperacillin-tazobactam 3.375 GM in sodium chloride 0.9% (plus) 50 ML IV ×3 (03:54→21:33)
[2020-10-05] MEDS: levothyroxine 25 mcg Tablet PO (04:12)
[2020-10-05] MEDS: levothyroxine 112 mcg Tablet PO (04:12)
[2020-10-05 06:00] LABS: Thyroid Stimulating Hormone 4.54 uIU/mL (0.27-4.20)
[2020-10-05] MEDS: cholecalciferol (vitamin D3) 1,000 unit Tablet 2000 UNIT PO (06:10)
[2020-10-05] MEDS: tamsulosin 0.4 mg Capsule PO ×2 (06:10→16:44)
[2020-10-05] MEDS: pantoprazole DR 40 mg Tablet PO ×2 (06:10→16:45)
[2020-10-05] MEDS: sodium chloride 0.9% 1,000 ML 75 ML IV (08:09)
[2020-10-05] MEDS: apixaban 5 mg Tablet PO ×2 (08:10→16:45)
[2020-10-05] MEDS: vancomycin 1,500 MG/300 ML PIGGYBACK 200 MG IV ×2 (08:10→23:06)
[2020-10-05] MEDS: albuterol 8 gm MDI 2 PUFF INHALATION ×2 (08:37→20:23)
--- NOTE | 2020-10-05 09:00 | CT_ITS ---
WS: [id number] Exam: CT chest wo con [id number] Date/Time of Exam: 10/05/2020 8:40 AM Reason For Exam: shortness of breath DLP: 1128.[address] scans at [facility] use at least one of these dose optimization techniques: automat ed exposure control; mA and/or kV adjustment per patient size (includes targeted exams where dose is matched to clinical indication); or iterative reconstruction. Compared to prior study 09/13/2020. Patchy bilateral groundglass infiltrates with areas of atelectasis noted. The lungs are fully inflate d. No pleural effusions. No suspicious pulmonary mass or nodule. The airway is patent. The thoracic a luis eduardo is normal in caliber. No significant mediastinal or hilar lymphadenopathy. No destructive bone l esions are chest wall defects. Pulmonary hyperinflation may indicate COPD. Small fat filled right-flower ed [place] hernia. Numerous cysts noted in the liver. Small stones in the gallbladder. 6 cm cyst in the left kidney. Small nonobstructing right renal stone. CT/CT chest wo con [id number] IMPRESSION: 1. Patchy bilateral groundglass infiltrates with areas of plaque atelectasis. 2. No pulmonary mass or lymphadenopathy. 3. Pulmonary hyperinflation which may indicate COPD. 4. Additional nonacute findings as indicated above.
--- NOTE | 2020-10-05 09:34 | PC.CHAP ---
Pastoral Care Encounter/Spiritual Assessment Type of Contact [] Declined frame gate mortiser operator visit [] Patient/Family/Request visit [] Outpatient visit [] Follow-up visit [] Physician referral [] Code/Alert [] Routine visit [] Staff referral [] Actively dying [] Patient sleeping [] Family support [] [x] Out of room [] Palliative care [] [] Receiving care in room [] Pre-surgical visit [] Trauma [] Long length of stay [] ICU visit [] Other: Relational/Emotional Strength [] Patient feels connected with others/family/visitors/staff [] Distress [] Loneliness/isolation [] Abandonment Spirituality of Patient [] Person of Sissy [] Attends Evangelical of their Sissy [] Believes in Prayer [] Reads Bible or Christian materials [] There are Spiritual issues to be addressed Specialty Person Interventions [] Prayer [] Active listening [] Non-anxious presence [] Spiritual/emotional support [] Crisis/trauma care [] Spiritual counseling [] Bereavement support [] Provided bereavement packet [] Provided Bible/devotional materials [] Provided toy/stuffed animal, coloring book to patient or family member [] Provided Communion [] Anointing/[place] [] Salvation [] Completed spiritual assessment [] Other: Impact on Illness or Injury [] Angry [] Fearful [] Anxious [] Often cries [] Exhaustion [] Unable to work [] Unable to attend adventist [] Unable to walk/stand [] Unable to read [] Unable to drive [] Unable to eat/drink [] Unable to sleep [] Unable to be with family [] Patient intubated [] Other: Summary Time spent with patient
[2020-10-05] MEDS: azithromycin 500 MG in sodium chloride 0.9% 250 ML 250 MG IV (10:03)
[2020-10-05 12:01] LABS: Alanine Aminotransferase 100 U/L (0-41); Albumin Level 2.3 g/dL (3.5-5.2); Alkaline Phosphatase 74 IU/L (40-130); Anion Gap 14.7 (5-19); Aspartate Amino Transferase 58 U/L (0-40); Blood Urea Nitrogen 18 mg/dL (8-23); Calcium 7.8 mg/dL (8.5-10.5); Carbon Dioxide 20 mmol/L (22-29); Chloride 102 mmol/L (98-107); Globulin 2.7 g/dL (1.3-4.6); Glucose 160 mg/dL (65-115); Magnesium 1.5 mg/dL (1.7-2.3); Osmolality Calculated 279 mOsm/kg (285-295); Potassium 4.7 mmol/L (3.5-5.1); Sodium 132 mmol/L (136-145); Total Bilirubin 0.8 mg/dL (0.15-1.2)
--- NOTE | 2020-10-05 13:10 | P.PN_ITS ---
Subjective Subjective: Interval history: Patient was examined this morning, he overall is doing better, has good appetite, still feeling a bit weak, some shortness of breath with exertion, no fevers, chills, nausea, vomiting, complaining of oral candidiasis Vitals/I&O/Wt Last Vital Signs Temp 97.8 F 10/05/20 12:00 Pulse 92 10/05/20 12:00 Resp 17 10/05/20 12:00 BP 100/68 10/05/20 12:00 Pulse Ox 95 10/05/20 12:00 10/04/20 10/05/20 10/05/20 22:59 06:59 14:59 Intake Total 1680 / 1680 540 / 2220 843.75 / 843.75 Output Total 300 / 300 350 / 650 400 / 400 Balance 1380 / 1380 190 / 1570 443.75 / 443.75 Weight last 48 hrs Weight 136.078 kg Physical Exam Const: COMMON NORMALS: no acute distress and patient oriented x3 HENMT: COMMON NORMALS: normocephalic HEAD & SCALP: normocephalic Neck/C-Spine: COMMON NORMALS: no JVD Resp: COMMON NORMALS: normal respiratory effort, No retractions, No use of accessory muscles and clear to auscultation bilaterally AUSCULTATION: clear to auscultation bilaterally Cardio: COMMON NORMALS: no JVD, regular rate, regular rhythm, S1 normal heart sound present and S2 normal heart sound present RATE: regular rate RHYTHM: regular rhythm HEART SOUNDS: S1 normal heart sound present and S2 normal heart sound present GI: COMMON NORMALS: Normal to inspection, nondistended, normoactive bowel sounds present, Soft to palpation, non-tender, No hepatosplenomegaly present, no masses and no bruits PALPATION: Yes Soft to palpation and Yes No hepatosplenomegaly present Extremity: COMMON NORMALS: capillary refill normal, no clubbing, cyanosis or edema, no calf tenderness and no pedal edema Neuro: COMMON NORMALS: patient oriented x3 Psych: COMMON NORMALS: mental status grossly normal Data : 10/04/20 14:00 10/05/20 11:35 Micro: Microbiology 10/04/20 17:19 Blood Culture - Preliminary Blood SPECIMEN COLLECTED 10/04/20 17:10 Blood Culture - Preliminary Blood SPECIMEN COLLECTED A&P Assessment and plan (1) Pneumonia: -Chest x-ray shows right upper lobe infiltrate, which seems the same and slightly improved compared to prior chest x-ray -CT of the chest 1. Patchy bilateral groundglass infiltrates with areas of plaque atelectasis. 2. No pulmonary mass or lymphadenopathy. 3. Pulmonary hyperinflation which may indicate COPD. -Blood cultures, sputum cultures, repeat Covid testing -Covid isolation -Broad-spectrum antibiotics vancomycin and Zosyn and azithromycin for healthcare associated pneumonia given -Full code -Eliquis for DVT prophylaxis Status: Acute (2) Hypotension: -Likely secondary dehydration, continue fluids -We will order C. difficile Status: Acute (3) Pneumonia due to 2019 novel coronavirus: -Diagnosed on 09/03/2020, has finished treatment in isolation -Given persistent fatigue, malaise will repeat Covid testing Status: Acute (4) Chronic diastolic heart failure: -hold lasix due to dehydration Status: Acute (5) Dyslipidemia: Continue home medication Status: Acute (6) Hypothyroidism: Continue home medication Status: Acute (7) Benign prostatic hyperplasia: Continue home medication Status: Acute (8) Intermittent atrial fibrillation: Telemetry monitoring Status: Acute (9) Hyponatremia: 132, Secondary dehydration Status: Acute (10) Transaminitis: Likely secondary to remnant COVID-19 Status: Acute Additional A&P Information Patient requires hospitalization for healthcare associate pneumonia, continue antibiotic therapy, continue IV hydration, monitor clinically Attestations Medical Necessity Statement*: Patient requires hospitalization for healthcare associate pneumonia, continue antibiotic therapy continue IV hydration, monitor clinically Coding Level of Care Code 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
[2020-10-05] MEDS: nystatin 100,000 unit/mL UDC 5 mL 500000 UNIT PO ×3 (13:59→21:33)
[2020-10-05] MEDS: magnesium oxide 400 mg tablet PO ×2 (14:00→16:44)
[2020-10-05 21:16] LABS: Vancomycin Trough 11.2 ug/mL (10-15)
[2020-10-05] MEDS: dexamethasone 4 mg/mL INJ 6 MG IVP (21:32)
[2020-10-05] MEDS: atorvastatin 40 mg Tablet 80 MG PO (21:33)
[2020-10-06 04:00] VITALS: BP 111/78; PULSE 92; RESP 22; TEMP 36.6; O2SAT 92
[2020-10-06] MEDS: levothyroxine 112 mcg Tablet PO (04:03)
[2020-10-06] MEDS: levothyroxine 25 mcg Tablet PO (04:03)
[2020-10-06] MEDS: piperacillin-tazobactam 3.375 GM in sodium chloride 0.9% (plus) 50 ML IV (04:03)
[2020-10-06] MEDS: sodium chloride 0.9% 1,000 ML 75 ML IV (04:10)
[2020-10-06] MEDS: tamsulosin 0.4 mg Capsule PO (05:08)
[2020-10-06] MEDS: pantoprazole DR 40 mg Tablet PO (05:08)
[2020-10-06] MEDS: cholecalciferol (vitamin D3) 1,000 unit Tablet 2000 UNIT PO (05:08)
[2020-10-06 06:00] VITALS: PULSE 79
[2020-10-06 06:08] LABS: Basophils % 0.1 %; Hemoglobin 13.2 g/dL (11.7-16.6); Lymphocytes # 0.3 10^3/uL (0.8-4.8); Lymphocytes % 3.7 %; Mean Corpuscular Hemoglobin 29.8 pg (28.0-34.0); Mean Corpuscular Volume 90.3 fL (80-94); Mean Platelet Volume 9.9 fL (7.4-10.4); Monocytes # 0.2 10^3/uL (0.2-0.9); Monocytes % 2.1 %; Neutrophils # 8.47 10^3/uL (1.8-7.7); Neutrophils % 93.4 %; Nucleated Red Blood Cells % 0 %; Platelet Count 129 10^3/cmm (130-400); Red Blood Count 4.43 10^6/uL (4.1-5.3); Red Cell Distribution Width 13.9 % (12.1-15.1); White Blood Count 9.1 10^3/uL (4.0-10.0)
[2020-10-06 06:16] LABS: Alanine Aminotransferase 86 U/L (0-41); Albumin Level 2.6 g/dL (3.5-5.2); Alkaline Phosphatase 73 IU/L (40-130); Anion Gap 13.9 (5-19); Aspartate Amino Transferase 43 U/L (0-40); Blood Urea Nitrogen 15 mg/dL (8-23); Carbon Dioxide 23 mmol/L (22-29); Chloride 99 mmol/L (98-107); Globulin 2.3 g/dL (1.3-4.6); Glucose 158 mg/dL (65-115); Magnesium 1.6 mg/dL (1.7-2.3); NT Pro B Type Natriuretic Pept 1034 pg/mL (0-450); Osmolality Calculated 276 mOsm/kg (285-295); Phosphorus 2.9 mg/dL (2.5-4.5); Potassium 4.9 mmol/L (3.5-5.1); Sodium 131 mmol/L (136-145); Total Bilirubin 0.6 mg/dL (0.15-1.2); Total Protein 4.9 g/dL (6.6-8.7)
[2020-10-06 07:43] VITALS: BP 125/89; PULSE 94; RESP 17; TEMP 36.6; O2SAT 96
[2020-10-06] MEDS: apixaban 5 mg Tablet PO (08:53)
[2020-10-06] MEDS: nystatin 100,000 unit/mL UDC 5 mL 500000 UNIT PO (08:54)
[2020-10-06] MEDS: albuterol 8 gm MDI 2 PUFF INHALATION (09:30)
[2020-10-06 09:31] VITALS: PULSE 94; RESP 16; O2SAT 96
[2020-10-06] MEDS: vancomycin 1,500 MG/300 ML PIGGYBACK 200 MG IV (09:46)
[2020-10-06 11:27] VITALS: BP 109/74; PULSE 79; RESP 17; TEMP 36.7; O2SAT 92
--- NOTE | 2020-10-06 11:58 | PM.DCS ---
Discharge Providers Date of Admission: 10/05/20 17:36 Date of Discharge: October 06, 2020 Attending Provider at Admission: Javid Trinidad MD Attending Provider at Discharge: Javid Trinidad MD Primary Care Provider: Emil Oliveira DO Diagnoses at Discharge Discharge Diagnosis (1) Pneumonia: Status: Acute (2) Hypotension: Status: Acute (3) Pneumonia due to 2019 novel coronavirus: Status: Acute Permanent problem details: Bacterial pneumonia including postobstructive pneumonia cannot be ruled out. (4) Chronic diastolic heart failure: Status: Acute (5) Dyslipidemia: Status: Acute (6) Hypothyroidism: Status: Acute (7) Benign prostatic hyperplasia: Status: Acute (8) Intermittent atrial fibrillation: Status: Acute (9) Hyponatremia: Status: Acute (10) Transaminitis: Status: Acute Reason for Visit Reason for Visit: LOW BP, NAUSEA, HEADACHE, DIZZINESS Hospital Course Hospital Course Lupillo Silveira is a 74 year old male with a past medical history of atrial fibrillation status post cardioversion, BPH, cerebral artery aneurysm, his chronic diastolic heart failure, dyslipidemia, hypertension, hyperlipidemia, hypothyroidism, narcolepsy, peripheral arterial disease, recent hospital discharge for COVID-19 pneumonia on Eliquis, who presents presents for fatigue, malaise, shortness of breath, oxygen requirements have decreased to 4 L, however has been complaining of increased fatigue, weakness, diarrhea for the last 24 hours. Patient was admitted to [facility] for hypotension likely secondary to dehydration, improved with IV fluids. Discharge instructions to drink plenty of electrolyte balance fluids such as Gatorade. Discharged on instructions to hold blood pressure medications until he sees his primary care. Check blood pressures daily, if systolic blood pressure greater than 150 or diastolic blood pressure greater than 90 resume lisinopril 20 mg daily. If blood pressures remain elevated increase lisinopril to 40 mg daily. Patient was admitted for recurrent pneumonia, concern for healthcare associated pneumonia, started on broad-spectrum antibiotics, remained afebrile, all cultures have been unremarkable so far, CT of the chest showed Patchy bilateral groundglass infiltrates with areas of plaque atelectasis. Patient clinically did well, discharged on 7 remaining days of Augmentin and doxycycline. Physical Exam Const: COMMON NORMALS: no acute distress and patient oriented x3 HENMT: COMMON NORMALS: normocephalic HEAD & SCALP: normocephalic Neck/C-Spine: COMMON NORMALS: no JVD Resp: COMMON NORMALS: normal respiratory effort, No retractions, No use of accessory muscles and clear to auscultation bilaterally AUSCULTATION: clear to auscultation bilaterally Cardio: COMMON NORMALS: no JVD, regular rate, regular rhythm, S1 normal heart sound present and S2 normal heart sound present RATE: regular rate RHYTHM: regular rhythm HEART SOUNDS: S1 normal heart sound present and S2 normal heart sound present GI: COMMON NORMALS: Normal to inspection, nondistended, normoactive bowel sounds present, Soft to palpation, non-tender, No hepatosplenomegaly present, no masses and no bruits PALPATION: Yes Soft to palpation and Yes No hepatosplenomegaly present Extremity: COMMON NORMALS: capillary refill normal, no clubbing, cyanosis or edema, no calf tenderness and no pedal edema Neuro: COMMON NORMALS: patient oriented x3 Psych: COMMON NORMALS: mental status grossly normal Discharge Data Data Completed and Pending: Completed Studies During Hospitalization Category Date Time Status CT chest wo con 7 1250 Urgent Cat Scan 10/05/20 09:00 Completed XR chest 1V brittny ble [id number] Stat Exams 10/04/20 14:31 Completed Pending at discharge Category Date Time Status Blood Culture Sta t Lab 10/04/20 17:19 Results C Reactive Protei n AM LABS Lab 10/07/20 04:00 Ordered C Reactive Protei n AM LABS Lab 10/08/20 04:00 Ordered Clostridioides Di fficile PCR Routin e Lab 10/04/20 19:39 Ordered Complete Blood Co unt w/Auto AM LABS Lab 10/07/20 04:00 Ordered Complete Blood Co unt w/Auto AM LABS Lab 10/08/20 04:00 Ordered Comprehensive Met abolic Panel AM LA BS Lab 10/07/20 04:00 Ordered Comprehensive Met abolic Panel AM LA BS Lab 10/08/20 04:00 Ordered Enteric Bacterial Panel by PCR Rout ine Lab 10/04/20 19:39 Ordered Enteric Parasite Panel by PCR Routi ne Lab 10/04/20 19:39 Ordered Magnesium AM LABS Lab 10/07/20 04:00 Ordered Magnesium AM LABS Lab 10/08/20 04:00 Ordered Miscellaneous Flory t Routine Lab 10/04/20 20:50 Received NT Pro B Type Hemalatha riuretic Pept QAM Lab 10/07/20 06:00 Ordered NT Pro B Type Hemalatha riuretic Pept QAM Lab 10/08/20 06:00 Ordered Phosphorus AM LAB S Lab 10/07/20 04:00 Ordered Phosphorus AM LAB S Lab 10/08/20 04:00 Ordered Procalcitonin AM LABS Lab 10/07/20 04:00 Ordered Procalcitonin AM LABS Lab 10/08/20 04:00 Ordered [facility] SARS-CoV-2 RNA Routine Lab 10/04/20 20:50 Received Sputum Culture an d Gram Stain Stat Lab 10/04/20 19:39 Uncollected Urine Culture Sta t Lab 10/04/20 20:50 Results Labs from last 24 hours 10/06/20 10/06/20 10/06/20 05:12 05:12 05:12 WBC 9.1 RBC 4.43 Hgb 13.2 Hct 40.0 L MCV 90.3 MCH 29.8 MCHC 33.0 RDW 13.9 Plt Count 129 L MPV 9.9 Neut % (Auto) 93.4 Lymph % (Auto) 3.7 [place] % (Auto) 2.1 Eos % (Auto) 0.0 Baso % (Auto) 0.1 Neut # (Auto) 8.47 H Lymph # (Auto) 0.3 L [place] # (Auto) 0.2 Eos # (Auto) 0.0 Baso # (Auto) 0.0 Nucleated RBC % (a uto) 0 Nucleated RBCs # 0.0 Sodium 131 L Potassium 4.9 Chloride 99 Carbon Dioxide 23 Anion Gap 13.9 BUN 15 Creatinine 1.1 GFR Calculation Not Reportable Glucose 158 H Calculated Osmolal ity 276 L Lactate Calcium 8.0 L Phosphorus 2.9 Magnesium 1.6 L Total Bilirubin 0.6 AST 43 H ALT 86 H Alkaline Phosphata se 73 C-Reactive Protein 9.0 H NT-Pro-B Natriuret Pep 1034 H Total Protein 4.9 L Albumin 2.6 L Globulin 2.3 Procalcitonin 0.10 Vancomycin Trough 10/05/20 10/05/20 10/05/20 20:08 11:35 11:35 WBC RBC Hgb Hct MCV MCH MCHC RDW Plt Count MPV Neut % (Auto) Lymph % (Auto) [place] % (Auto) Eos % (Auto) Baso % (Auto) Neut # (Auto) Lymph # (Auto) [place] # (Auto) Eos # (Auto) Baso # (Auto) Nucleated RBC % (a uto) Nucleated RBCs # Sodium 132 L Potassium 4.7 Chloride 102 Carbon Dioxide 20 L Anion Gap 14.7 BUN 18 Creatinine 1.1 GFR Calculation Not Reportable Glucose 160 H Calculated Osmolal ity 279 L Lactate 2.0 Calcium 7.8 L Phosphorus Magnesium 1.5 L Total Bilirubin 0.8 AST 58 H ALT 100 H Alkaline Phosphata se 74 C-Reactive Protein NT-Pro-B Natriuret Pep Total Protein 5.0 L Albumin 2.3 L Globulin 2.7 Procalcitonin Vancomycin Trough 11.2 Vitals: Last Vital Signs Temp 98.1 F 10/06/20 11:27 Pulse 79 10/06/20 11:27 Resp 17 10/06/20 11:27 BP 109/74 10/06/20 11:27 Pulse Ox 92 10/06/20 11:27 Discharge Plan Discharge Patient Disposition: Home Condition: Stable Prescriptions: New nystatin 100,000 unit/mL Suspension 500,000 unit PO QID 5 Days Qty: 100 RF: 0 amoxicillin-pot clavulanate [Augmentin] 875-125 mg tablet 1 tab PO BID 7 Days Qty: 14 RF: 0 albuterol sulfate [Ventolin HFA] 90 mcg/actuation Hfa Aerosol Inhaler 2 puff inhalation Q4H.RESPIRATORY PRN (Reason: Shortness Of Breath) Qty: 18 RF: 0 doxycycline hyclate 100 mg capsule 100 mg PO BID 7 Days Qty: 14 RF: 0 Continued hydrocodone-acetaminophen [Aspen] 10-325 mg tablet 1 tab PO Q6H PRN (Reason: pain) 7 Days Qty: 30 RF: 0 furosemide 40 mg tablet 40 mg PO .PRN RF: 0 levothyroxine [Synthroid] 137 mcg Tablet 137 mcg PO DAILY@04 RF: 0 modafinil 200 mg Tablet 200 mg PO DAILY@06 RF: 0 pantoprazole 40 mg Tablet,Delayed Release (Dr/Ec) 40 mg PO BID@18 RF: 0 cholecalciferol (vitamin D3) [Vitamin D3] 50 mcg (2,000 unit) Capsule 2,000 unit PO DAILY@06 RF: 0 Ozempic 1 mg/dose (2 mg/1.5 mL) Pen Injector 1 mg SUBCUT Q7D RF: 0 tamsulosin 0.4 mg capsule 0.4 mg PO BID@06,18 RF: 0 potassium chloride 8 mEq capsule, extended release 8 meq PO DAILY PRN (Reason: unknown) RF: 0 Eliquis 5 mg tablet 5 mg PO BID@0600,1800 RF: 0 rosuvastatin 40 mg tablet See Rx Instructions .ROUTE .COMPLEX RF: 0 Held lisinopril 40 mg tablet 40 mg PO DAILY@06 RF: 0 Hold Instructions: Resume on 10/15/20. hold until you see primary care physician metoprolol tartrate 100 mg tablet 100 mg PO BID@,18 RF: 0 Hold Instructions: Resume on 10/15/20. hold until you see primary care Discharge Orders: Discharge Order (Routine); Ordered 10/06/20 Ordered By: Javid Trinidad Other Ambulatory Orders: Complete Blood Count w/Auto (Routine) Timeframe: 1 Day Location: Determined by Patient Ordered By: Javid Trinidad Comprehensive Metabolic Panel (Routine) Timeframe: 1 Day Facility: [facility] - Location: Lab - Main Lab Ordered By: Javid Trinidad Referrals: Emil Oliveira DO [Primary Care Provider] - Discharge Diet: Cardiac Discharge Activity: Resume usual activity Activity Restrictions/Additional Instructions: -Drink plenty of electrolyte balance fluids such as Gatorade -Hold blood pressure medications until you see your primary care physician in 1 week -If your systolic blood pressure is greater than 150 or diastolic blood pressures greater than 90 on 2 consecutive reads, resume lisinopril 20 mg daily. If your blood pressures remain elevated increase lisinopril to 40 mg daily -Use antibiotics as prescribed Discharge Attestations Time Spent in Discharge Care*: greater than 30 min Quality Metrics Clinical Quality Measures During this hospital stay, did patient experience: None Coding Level of Care Code Acute Cable Tower Operator for g 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 Diagnoses Pneumonia J18.9 Hypotension I95.9 Pneumonia due to 2019 novel coronavirus U07.1; J12.89 Chronic diastolic heart failure I50.32 Dyslipidemia E78.5 Hypothyroidism E03.9 Benign prostatic hyperplasia N40.0 Intermittent atrial fibrillation I48.0 Hyponatremia E87.1 Transaminitis R74.01
[2020-10-06 15:41] VITALS: BP 109/74; PULSE 79; RESP 17; TEMP 36.7; O2SAT 92
[2020-10-07 08:28] LABS: Quest SARS-CoV-2 RNA DETECTED (NOT DETECTED)
== END 2020-10-06 13:30 | disposition home or self-care (01) | DRG 177 ==
LOC: ER 15:54 → MEDSURG 18:13
PROVIDERS: Admitting Provider Family Medicine; Emergency Provider Family Medicine; PCP Emergency Medicine Emergency Medical Services; Visit Provider Family Medicine
DX: U07.1 COVID-19 (principal); J15.9 Unspecified bacterial pneumonia; J12.89 Other viral pneumonia; I50.32 Chronic diastolic (congestive) heart failure; E87.1 Hypo-osmolality and hyponatremia; I48.91 Unspecified atrial fibrillation; N40.0 Benign prostatic hyperplasia without lower urinary tract symptoms; I67.1 Cerebral aneurysm, nonruptured; I11.0 Hypertensive heart disease with heart failure; E78.5 Hyperlipidemia, unspecified; E03.9 Hypothyroidism, unspecified; G47.419 Narcolepsy without cataplexy; I73.9 Peripheral vascular disease, unspecified; I25.10 Atherosclerotic heart disease of native coronary artery without angina pectoris; I95.9 Hypotension, unspecified; E86.0 Dehydration; Z79.899 Other long term (current) drug therapy; Z79.01 Long term (current) use of anticoagulants
CPT/HCPCS: 12345; 36415; 71045; 71250; 80053; 80202; 83605; 83735; 83880; 84100; 84145; 84443; 85025; 86140; 87040; 87086; 87426; 87635; 93005; 94640; 94664; 97161; 97165; 97530; 99282; G0378; J0456; J1100; J1956; J2543; J3370; J3535; J7030; J7050

== ENCOUNTER 2020-10-15 07:34 | Outpatient (CLI) | payer OTHER, MEDICARE, SELFPAY ==
[2020-10-15 08:12] LABS: Basophils % 0.4 %; Eosinophils # 0.1 10^3/uL (0.0-0.8); Eosinophils % 1.2 %; Hematocrit 42.5 % (42.0-52.0); Hemoglobin 13.8 g/dL (11.7-16.6); Lymphocytes # 0.6 10^3/uL (0.8-4.8); Lymphocytes % 12.1 %; Mean Corpuscular HGB Conc 32.5 g/dL (30.0-36.0); Mean Corpuscular Hemoglobin 30.2 pg (28.0-34.0); Mean Platelet Volume 9.4 fL (7.4-10.4); Monocytes # 0.4 10^3/uL (0.2-0.9); Monocytes % 7.1 %; Neutrophils % 78.8 %; Nucleated Red Blood Cells % 0 %; Platelet Count 141 10^3/cmm (130-400); Red Blood Count 4.57 10^6/uL (4.1-5.3); Red Cell Distribution Width 14.9 % (12.1-15.1)
[2020-10-15 08:32] LABS: Alanine Aminotransferase 57 U/L (0-41); Alkaline Phosphatase 86 IU/L (40-130); Anion Gap 13.4 (5-19); Aspartate Amino Transferase 30 U/L (0-40); Blood Urea Nitrogen 9 mg/dL (8-23); Calcium 8.4 mg/dL (8.5-10.5); Carbon Dioxide 27 mmol/L (22-29); Chloride 99 mmol/L (98-107); Globulin 2.2 g/dL (1.3-4.6); Glucose 91 mg/dL (65-115); Osmolality Calculated 278 mOsm/kg (285-295); Potassium 4.4 mmol/L (3.5-5.1); Sodium 135 mmol/L (136-145); Total Bilirubin 0.7 mg/dL (0.15-1.2); Total Protein 5.2 g/dL (6.6-8.7)
== END 2020-10-15 07:35 | disposition home or self-care (01) ==
LOC: LAB 07:44
PROVIDERS: PCP Emergency Medicine Emergency Medical Services; Visit Provider Family Medicine
DX: R74.01 Elevation of levels of liver transaminase levels (principal); E87.1 Hypo-osmolality and hyponatremia; J18.9 Pneumonia, unspecified organism
CPT/HCPCS: 80053; 85025

== ENCOUNTER 2020-10-15 20:00 | Outpatient (CLI) | payer OTHER, SELFPAY | END 2020-10-15 20:01 | disposition home or self-care (01) | LOC: SLEEP 10-16 08:38 | PROVIDERS: PCP Emergency Medicine Emergency Medical Services; Visit Provider Emergency Medicine Emergency Medical Services | DX: G47.33 Obstructive sleep apnea (adult) (pediatric) (principal) | CPT/HCPCS: 95811 ==

== ENCOUNTER → 2020-10-17 08:35 | Outpatient (BNVA) | payer MEDICARE, OTHER, SELFPAY | PROVIDERS: PCP Emergency Medicine Emergency Medical Services; Visit Provider Specialist | DX: M25.561 Pain in right knee (principal); M25.562 Pain in left knee | CPT/HCPCS: 73560; 73565 ==

== ENCOUNTER 2020-10-19 09:30 | Outpatient (RCR) | payer MEDICARE, OTHER, SELFPAY | END 2020-11-04 23:59 | disposition home or self-care (01) | LOC: SPT 09:30 | PROVIDERS: PCP Emergency Medicine Emergency Medical Services; Referring Provider Internal Medicine Pulmonary Disease; Visit Provider Internal Medicine Pulmonary Disease | DX: R53.81 Other malaise (principal) | CPT/HCPCS: 97110; 97162 ==

== ENCOUNTER 2020-11-05 06:00 | Outpatient (RCR) | payer MEDICARE, OTHER, SELFPAY | END 2020-12-02 23:59 | disposition home or self-care (01) | LOC: SPT 06:00 | PROVIDERS: PCP Emergency Medicine Emergency Medical Services; Referring Provider Internal Medicine Pulmonary Disease; Visit Provider Internal Medicine Pulmonary Disease | DX: R53.81 Other malaise (principal) | CPT/HCPCS: 97032; 97110 ==

== ENCOUNTER 2020-11-09 08:44 | Outpatient (CLI) | payer MEDICARE, OTHER, SELFPAY ==
--- NOTE | 2020-11-09 | CT_ITS ---
WS: [id number] CTA HEAD AND NECK TECHNIQUE: Contrast enhanced CTA of the head and neck with coronal and sagittal reformatted images an d maximum intensity projection (MIP) images. NASCET criteria utilized. CLINICAL INFORMATION: LT MCA ANEURYSM COMPARISON: CT head 9 DLP: [address] scans [address] [facility] use at least one of these dose optimization techniques: automat ed exposure control; mA and/or kV adjustment per patient size (includes targeted exams where dose is matched to clinical indication); or iterative reconstruction. FINDINGS: RIGHT: Right common carotid artery is patent. No significant right ICA stenosis. Right ICA is patent to the skull base. Tortuous cervical ICA at the skull base. LEFT: Left common carotid artery is patent. No significant left ICA stenosis. Left ICA is patent to t he skull base. INTRACRANIAL CTA: Left MCA trifurcation aneurysm measuring 1.4 x 1.5 x 1.4 cm AP by transverse by craniocaudal. This is similar in appearance to [address] Distal vertebral arteries are patent. Basilar art ebony is patent. Normal vascularity to the PUSH BENCH OPERATOR HELPER territory bilaterally. Both ICAs are patent at the skull base. Tortuous cavernous carotid arteries with calcification. Hypop lastic left A1 segment. Normal vascularity to the DANIEL and MCA territories bilaterally. Dense calcific ation at the left greater than right MCA trifurcations. Dolichoectatic vertebrobasilar system. Tortuo us and fusiform dilatation of the intracranial vasculature. Tortuous right M1 segment without focal a neurysm. Fibrosis in the lung apices. Mastoid air cells are well aerated. Mild mucosal thickening in the ethmo id air cells. Normal parapharyngeal fat. No evidence of supraglottic or glottic mass. Hypertrophic ch anges cervical spine. CT/CT angio headneck* [id number] IMPRESSION: 1. No significant ICA stenosis bilaterally. 2. 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 This is similar in appearance to the noncontrast head CT 201 8 3. Dolichoectatic vertebrobasilar system which is patent. 4. Tortuous fusiform dilatation of the right M1 segment without focal aneurysm . 5. Moderate calcification involving the left greater than right MCA trifurcati ons. Distal vessels remain patent.
[2020-11-09] MEDS: iohexol 350 mg/mL 100 mL Btl IV (09:19)
== END 2020-11-09 08:45 | disposition home or self-care (01) ==
LOC: RADWPI 08:46
PROVIDERS: PCP Emergency Medicine Emergency Medical Services; Visit Provider Emergency Medicine Emergency Medical Services
DX: I67.1 Cerebral aneurysm, nonruptured (principal)
CPT/HCPCS: 70496; 70498; Q9967

== ENCOUNTER 2020-11-20 13:22 | Outpatient (CLI) | payer MEDICARE, OTHER, SELFPAY ==
--- NOTE | 2020-11-20 13:34 | XR_ITS ---
WS: [id number] CHEST 2 VIEWS HISTORY: resolution of pneumonia COMPARISON: 10/04/2020 Lungs: Hyperexpanded lungs from chronic emphysema. Linear scar has slightly decreased in width in the RIGHT upper lobe. No pneumonia. Normal vasculature. Marked flattening of the diaphragms. Minimal galindo nting of the costophrenic angles. Cardiac size: Mildly enlarged cardiac silhouette. Mediastinum/Aorta: Moderate atherosclerosis aorta. Bones: Increase in thoracic kyphosis. Prior LEFT rotator cuff repair. XR/XR chest 2V* [id number] IMPRESSION: 1. Chronic emphysema with stable scar RIGHT upper lobe. 2. Marked cardiomegaly and ectatic thoracic aorta.
== END 2020-11-20 13:23 | disposition home or self-care (01) ==
PROVIDERS: PCP Emergency Medicine Emergency Medical Services; Visit Provider Internal Medicine Pulmonary Disease
DX: J18.9 Pneumonia, unspecified organism (principal); J43.9 Emphysema, unspecified; I51.7 Cardiomegaly; I77.810 Thoracic aortic ectasia
CPT/HCPCS: 71046

== ENCOUNTER 2020-12-03 06:00 | Outpatient (RCR) | payer MEDICARE, OTHER, SELFPAY | END 2021-01-02 23:59 | disposition home or self-care (01) | LOC: SPT 06:00 | PROVIDERS: PCP Emergency Medicine Emergency Medical Services; Referring Provider Internal Medicine Pulmonary Disease; Visit Provider Internal Medicine Pulmonary Disease | DX: R53.81 Other malaise (principal) | CPT/HCPCS: 97110; G0283 ==

== ENCOUNTER 2020-12-12 10:29 | Inpatient (IN) | payer MEDICARE, OTHER, SELFPAY ==
[2020-12-12] VITALS (46 sets, daily range): BP systolic 99–146; BP diastolic 67–119; PULSE 67–130; RESP 13–24; TEMP 36.6–37.1; O2SAT 83–100; BMI 40.6
--- NOTE | 2020-12-12 10:31 | XR_ITS ---
WS: [id number] Portable AP upright chest, 12/12/2020 Clinical Data: chest pain Comparison: PA and lateral chest, 11/20/2020. Findings: There is a small right pleural effusion and possibly a small left effusion. Bibasilar atele ctatic changes are noted. The heart is enlarged. The aortic arch and descending aorta are tortuous. T here is atelectasis in the right upper lobe unchanged. Monitor leads are on the chest wall. There are orthopedic anchors in the left humeral head. XR/XR chest 1V portable [id number] Impression: 1. Increasing cardiomegaly. 2. Small bibasilar effusions and atelectatic changes. 3. Atherosclerosis.
--- NOTE | 2020-12-12 10:49 | ECG_ITS ---
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 Measurements Intervals [place] Rate: 129 P: ND: QRS: -18 QRSD: 118 T: 34 QT: 365 QTc: 535 Interpretive Statements ATRIAL FIBRILLATION WITH RAPID VENTRICULAR RESPONSE POSSIBLE LATERAL MYOCARDIAL INFARCTION , PROBABLY OLD [30 ms Q WAVE IN I/aVL/V5/V6] ABNORMAL RHYTHM ECG INTERPRETATION BASED ON A DEFAULT AGE OF 40 YEARS Compared to ECG 10/04/2020 14:44:59 No significant changes Electronically Signed On 12-12-2020 18:55:11 TAR DISTRIBUTOR OPERATOR by Sarah Merlos M.D. [id number] armando
--- NOTE | 2020-12-12 10:54 | W.ED.SOB ---
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 He was previously on metoprolol but he stopped that because he got significantly hypotensive he only takes Lasix about once a week last time he took it it dropped his weight about 6 to 8 pounds. He has previously had Covid knees received both Covid vaccines. He has a known history of atrial fibrillation and is chronically on oxygen at 4 L/min. MD elicited complaint: shortness of breath and cough Pertinent past history: congestive heart failure and other (afib) Onset (ago): day(s) Timing: constant Severity: severe Exacerbating factors: lying flat, exertion, coughing and talking Relieving factors: oxygen, rest and upright position Known history of: congestive heart failure and other (History of atrial fibrillation) Associated symptoms: Reports chest congestion, diaphoresis, lightheadedness, nausea, orthopnea and palpitations; Deny abdominal pain, chest pain, cough, dizziness, extremity pain, fever(s), hemoptysis, myalgias, paresthesias, polydipsia, polyuria, rash, sense of impending doom, syncope or vomiting Treatment prior to arrival: oxygen Review of Systems Const: Reports: diaphoresis; Denies: fever(s) ENMT: Denies: throat pain, ear or mastoid pain, nasal discharge or nasal congestion Card: Reports: palpitations, lightheadedness and orthopnea; Denies: chest pain or syncope Resp: Reports: chest congestion; Denies: hemoptysis GI: Reports: nausea; Denies: abdominal pain or vomiting : Denies: flank pain, dysuria, urinary frequency or urinary urgency Musc: Denies: extremity pain Skin/Breast: Denies: rash or pruritus Neuro: Denies: dizziness Endo: Denies: polyuria or polydipsia PFS ED PFSH: Medical History Atrial fibrillation status post cardioversion Benign prostatic hyperplasia Cerebral arterial aneurysm Chronic diastolic heart failure Chronic diastolic heart failure secondary to coronary artery disease Dyslipidemia Hyperlipidemia Hypertension Hypothyroidism Intermittent atrial fibrillation Narcolepsy Peripheral arterial disease Right fibular fracture Shortness of breath on exertion Spontaneous hemorrhage This patient blood into the right calf muscle and had hematuria with Xarelto Surgical History History of knee surgery S/P rotator cuff repair Family History Other CAD (coronary artery disease) Cancer Hypertension Stroke Social History Smoking and tobacco status: never smoked Second hand smoke exposure: Yes Smoking risk assessment/counseling performed?: Yes Alcohol intake: never Lives independently: Yes Household members: spouse and children Housing: House Marital status: service: Yes Current occupational status: retired Pets and animals: Yes History of recent travel: No Current gender identity: Male Physical Exam Const: COMMON NORMALS: no acute distress GENERAL APPEARANCE: cooperative and comfortable ORIENTATION/CONSCIOUSNESS: Yes awake, Yes oriented to person, Yes oriented to place and Yes oriented to time HENMT: COMMON NORMALS: normocephalic, atraumatic and hearing grossly normal bilaterally HEAD & SCALP: normocephalic and atraumatic Neck/C-Spine: COMMON NORMALS: no JVD Resp: AUSCULTATION: crackles Cardio: COMMON NORMALS: no JVD, regular rate, regular rhythm and No murmurs present (Cardio) RATE: regular rate RHYTHM: regular rhythm GI: COMMON NORMALS: Soft to palpation and No hepatosplenomegaly present AUSCULTATION: Yes normoactive bowel sounds PALPATION: Yes Soft to palpation, No Tenderness to palpation present (GI), No Guarding due to palpation present (GI) and Yes No hepatosplenomegaly present Extremity: OTHER: 2+ edema lower extremities. Neuro: SENSORIUM/ORIENTATION: Yes oriented to person, Yes oriented to place and Yes oriented to time Skin: COMMON NORMALS: no rashes or lesions noted GENERAL SKIN EXAM: no rashes or lesions noted Course Vital Signs: Vital signs: Vital Signs Temperature 99.2 F 12/15/20 07:25 Pulse Rate 85 12/15/20 07:25 Respiratory Rate 21 H 12/15/20 07:25 Blood Pressure 112/72 12/15/20 07:25 Pulse Oximetry 97 03/13/21 07:25 MDM - SOB/Dyspnea MDM Narrative: Medical decision making narrative: Start rate control. He is also mild heart failure. Patient require admission for adjustment of medications for better control of his A. fib and management of his heart failure. He was previously on anticoagulation does not wish to restart discussed with Dr. Malcolm and orders written Lab Data: Labs: Lab Results 12/12/20 12/12/20 12/12/20 Range/Units 10:50 10:50 10:50 WBC 4.3 (4.0-10.0) 10^3/ uL RBC 4.39 (4.1-5.3) 10^6/u L Hgb 13.2 (11.7-16.6) g/dL Hct 41.3 L (42.0-52.0) % MCV 94.1 H (80-94) fL MCH 30.1 (28.0-34.0) pg MCHC 32.0 (30.0-36.0) g/dL RDW 14.0 (12.1-15.1) % Plt Count 179 (130-400) 10^3/c mm MPV 11.1 H (7.4-10.4) fL Neut % (Auto) 64.6 % Lymph % (Auto) 23.8 % [place] % (Auto) 8.6 % Eos % (Auto) 1.6 % Baso % (Auto) 0.9 % Neut # (Auto) 2.77 (1.8-7.7) 10^3/u L Lymph # (Auto) 1.0 (0.8-4.8) 10^3/u L [place] # (Auto) 0.4 (0.2-0.9) 10^3/u L Eos # (Auto) 0.1 (0.0-0.8) 10^3/u L Baso # (Auto) 0.0 (0.0-0.1) 10^3/u L Nucleated RBC % (a uto) 0 % Nucleated RBCs # 0.0 /100WBC Sodium 141 (136-145) mmol/L Potassium 3.9 (3.5-5.1) mmol/L Chloride 110 H (98-107) mmol/L Carbon Dioxide 22 (22-29) mmol/L Anion Gap 12.9 (5-19) BUN 7 L (8-23) mg/dL Creatinine 1.0 (0.7-1.2) mg/dL GFR Calculation Not Reportable Glucose 90 (65-115) mg/dL Calculated Osmolal ity 290 (285-295) mOsm/k g Calcium 8.4 L (8.5-10.5) mg/dL Magnesium 1.7 (1.7-2.3) mg/dL Total Bilirubin 0.9 (0.15-1.2) mg/dL AST 27 (0-40) U/L ALT 18 (0-41) U/L Alkaline Phosphata se 67 (40-130) IU/L Creatine Kinase 132 (39-308) U/L Troponin T Baselin e 21 H (0-15) ng/L NT-Pro-B Natriuret Pep 80056 H (0-450) pg/mL Total Protein 5.7 L (6.6-8.7) g/dL Albumin 3.4 L (3.5-5.2) g/dL Globulin 2.3 (1.3-4.6) g/dL Urine Color (Yellow) Urine Appearance (CLEAR) Urine pH (5-7) Ur Specific Gravit y (1.005-1.030) Urine Protein (Negative) Urine Glucose (UA) (Normal) Urine Ketones (Negative) Urine Blood (Negative) Urine Nitrate (Negative) Urine Bilirubin (Negative) Urine Urobilinogen (Negative) mg/dL Ur Leukocyte Maggie ase (Negative) Urine RBC (0-2) /hpf Urine WBC (0-5) /hpf Ur Squamous Epith Cells (0-5) /hpf Amorphous Sediment /hpf Urine Bacteria (NONE) /hpf 12/12/20 Range/Units 12:33 WBC (4.0-10.0) 10^3/ uL RBC (4.1-5.3) 10^6/u L Hgb (11.7-16.6) g/dL Hct (42.0-52.0) % MCV (80-94) fL MCH (28.0-34.0) pg MCHC (30.0-36.0) g/dL RDW (12.1-15.1) % Plt Count (130-400) 10^3/c mm MPV (7.4-10.4) fL Neut % (Auto) % Lymph % (Auto) % [place] % (Auto) % Eos % (Auto) % Baso % (Auto) % Neut # (Auto) (1.8-7.7) 10^3/u L Lymph # (Auto) (0.8-4.8) 10^3/u L [place] # (Auto) (0.2-0.9) 10^3/u L Eos # (Auto) (0.0-0.8) 10^3/u L Baso # (Auto) (0.0-0.1) 10^3/u L Nucleated RBC % (a uto) % Nucleated RBCs # /100WBC Sodium (136-145) mmol/L Potassium (3.5-5.1) mmol/L Chloride (98-107) mmol/L Carbon Dioxide (22-29) mmol/L Anion Gap (5-19) BUN (8-23) mg/dL Creatinine (0.7-1.2) mg/dL GFR Calculation Glucose (65-115) mg/dL Calculated Osmolal ity (285-295) mOsm/k g Calcium (8.5-10.5) mg/dL Magnesium (1.7-2.3) mg/dL Total Bilirubin (0.15-1.2) mg/dL AST (0-40) U/L ALT (0-41) U/L Alkaline Phosphata se (40-130) IU/L Creatine Kinase (39-308) U/L Troponin T Baselin e (0-15) ng/L NT-Pro-B Natriuret Pep (0-450) pg/mL Total Protein (6.6-8.7) g/dL Albumin (3.5-5.2) g/dL Globulin (1.3-4.6) g/dL Urine Color Dark yellow (Yellow) Urine Appearance Clear (CLEAR) Urine pH 5 (5-7) Ur Specific Gravit y 1.030 (1.005-1.030) Urine Protein 2+ H (Negative) Urine Glucose (UA) Norm (Normal) Urine Ketones Negative (Negative) Urine Blood 2+ H (Negative) Urine Nitrate Negative (Negative) Urine Bilirubin 1+ H (Negative) Urine Urobilinogen 1 H (Negative) mg/dL Ur Leukocyte Maggie ase Negative (Negative) Urine RBC 0-4 H (0-2) /hpf Urine WBC 0-4 H (0-5) /hpf Ur Squamous Epith Cells 0-4 H (0-5) /hpf Amorphous Sediment 4+ /hpf Urine Bacteria 1+ H (NONE) /hpf Discharge Plan Discharge Patient Disposition: Admitted As Inpatient Admit Provider: Dimitri Valerio Clinical Impression: Atrial fibrillation with rapid ventricular response, Acute on chronic diastolic (congestive) heart failure, SHER (obstructive sleep apnea) Condition: Stable Coding Level of Care Code ED Day Habilitation Supervisor for Chg Fwd Exam Detailed
[2020-12-12 11:01] LABS: Basophils % 0.9 %; Eosinophils # 0.1 10^3/uL (0.0-0.8); Eosinophils % 1.6 %; Hematocrit 41.3 % (42.0-52.0); Hemoglobin 13.2 g/dL (11.7-16.6); Lymphocytes % 23.8 %; Mean Corpuscular Hemoglobin 30.1 pg (28.0-34.0); Mean Corpuscular Volume 94.1 fL (80-94); Mean Platelet Volume 11.1 fL (7.4-10.4); Monocytes # 0.4 10^3/uL (0.2-0.9); Monocytes % 8.6 %; Neutrophils # 2.77 10^3/uL (1.8-7.7); Neutrophils % 64.6 %; Nucleated Red Blood Cells % 0 %; Platelet Count 179 10^3/cmm (130-400); Red Blood Count 4.39 10^6/uL (4.1-5.3); White Blood Count 4.3 10^3/uL (4.0-10.0)
[2020-12-12 11:55] LABS: Troponin(5th) Baseline 21 ng/L (0-15)
[2020-12-12 12:03] LABS: Alanine Aminotransferase 18 U/L (0-41); Albumin Level 3.4 g/dL (3.5-5.2); Alkaline Phosphatase 67 IU/L (40-130); Anion Gap 12.9 (5-19); Aspartate Amino Transferase 27 U/L (0-40); Blood Urea Nitrogen 7 mg/dL (8-23); Calcium 8.4 mg/dL (8.5-10.5); Carbon Dioxide 22 mmol/L (22-29); Chloride 110 mmol/L (98-107); Creatine Phosphokinase 132 U/L (39-308); Globulin 2.3 g/dL (1.3-4.6); Glucose 90 mg/dL (65-115); Magnesium 1.7 mg/dL (1.7-2.3); NT Pro B Type Natriuretic Pept 13455 pg/mL (0-450); Osmolality Calculated 290 mOsm/kg (285-295); Potassium 3.9 mmol/L (3.5-5.1); Sodium 141 mmol/L (136-145); Total Bilirubin 0.9 mg/dL (0.15-1.2); Total Protein 5.7 g/dL (6.6-8.7)
--- NOTE | 2020-12-12 12:49 | ECG_ITS ---
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 Measurements Intervals [place] Rate: 111 P: [place]: QRS: -9 QRSD: 117 T: 33 QT: 376 QTc: 513 Interpretive Statements ATRIAL FIBRILLATION WITH RAPID VENTRICULAR RESPONSE MODERATE INTRAVENTRICULAR CONDUCTION DELAY [110+ ms QRS DURATION] NONSPECIFIC T-WAVE ABNORMALITY ABNORMAL RHYTHM ECG INTERPRETATION BASED ON A DEFAULT AGE OF 40 YEARS Compared to ECG 10/04/2020 14:44:59 Intraventricular conduction delay now present T-wave abnormality now present Myocardial infarct finding no longer present Electronically Signed On 12-12-2020 19:00:21 CYBER DEFENSE ANALYST by Sarah Merlos M.D. [email or web address] - [id number]
--- NOTE | 2020-12-12 12:50 | PM.HP ---
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 Chase's office for further monitoring and treatment of heart failure and atrial fibrillation with rapid ventricular response. Patient reports that he has been having gradually worsening shortness of breath over the last 1 week. He has been having episodes of chest tightness whenever he gets short of breath. Reports that he was not able to lay flat in the last several days because of dyspnea. Reports that he would always wake up in the middle of night very short of breath. He has been using Lasix several days ago and lost 7 pounds but his shortness of breath persisted. Reports that approximately 3 weeks ago he stopped taking Eliquis because he developed bilateral calf hematoma. 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 fib. Reports that he does have intracranial aneurysm and is being monitored for that. Recent imaging did not show any change. He had nonobstructive coronary artery disease based on last coronary angiogram patient reports. In ER patient was started on Cardizem drip and being admitted to cardiac stepdown unit. After improved heart rate patients dyspnea much improved. He is using oxygen at home. Review of Systems Const: Denies: fever(s) or chills Eyes: Denies: change in vision ENMT: Denies: throat pain or change in hearing Card: Reports: edema; Denies: chest pain or lightheadedness Resp: Reports: dyspnea; Denies: productive cough GI: Reports: constipation; Denies: abdominal pain, nausea, vomiting, dysphagia, diarrhea, hematochezia or melena : Denies: difficulty urinating Musc: Denies: joint pain or joint swelling Skin/Breast: Denies: rash or erythema Neuro: Reports: headache(s) (mild temporal bilateral for 1 week); Denies: weakness in extremities Psych: Denies: depression Endo: Denies: excessive sweating [place]/Lymph: Denies: easy bleeding or tender lymph nodes All/Imm: Denies: throat swelling Medications/Allergies Home Medications Medication Instructions Recorded Confirmed Last Taken Type Ozempic 1 mg SUBCUT Q7D 12/11/19 12/12/20 12/09/20 History cholecalciferol (vitamin D3) 2,000 unit PO DAILY@06 12/11/19 12/12/20 12/12/20 History [Vitamin D3] levothyroxine [Synthroid] 137 mcg PO DAILY@04 12/11/19 12/12/20 12/12/20 History modafinil 200 mg PO DAILY@06 12/11/19 12/12/20 12/12/20 History pantoprazole 40 mg PO BID@12/11/19 12/12/20 12/12/20 History tamsulosin 0.4 mg capsule 0.4 mg PO BID@,18 cap 07/17/20 12/12/20 12/12/20 History furosemide 40 mg tablet 40 mg PO DAILY PRN tab 08/15/20 12/12/20 Unknown History potassium chloride 8 meq PO DAILY PRN 09/13/20 12/12/20 Unknown History rosuvastatin 40 mg PO DAILY@0600 10/04/20 12/12/20 12/12/20 History tiotropium bromide 18 mcg capsule 1 cap INHALATION DAILY #30 inh 11/22/20 12/12/20 12/12/20 Rx with inhalation device acetaminophen 500 mg tablet 1,000 mg PO QID PRN tab 12/12/20 12/12/20 Unknown History albuterol sulfate 2.5 mg CONTINUOUS NEBULIZATION QID 12/12/20 12/12/20 12/12/20 History PRN ml lisinopril 20 mg PO DAILY 12/12/20 12/12/20 Unknown History metoprolol tartrate 50 mg PO BID 12/12/20 12/12/20 Unknown History Allergies Allergy/AdvReac Type Severity Reaction Status Date / Time tolmetin [From Tolectin] Allergy ALGY-Rash Verified 12/12/20 09:22 PFSH Acute PFSH: Medical History Atrial fibrillation status post cardioversion Benign prostatic hyperplasia Cerebral arterial aneurysm Chronic diastolic heart failure Chronic diastolic heart failure secondary to coronary artery disease Dyslipidemia Hyperlipidemia Hypertension Hypothyroidism Intermittent atrial fibrillation Narcolepsy Peripheral arterial disease Right fibular fracture Shortness of breath on exertion Spontaneous hemorrhage This patient blood into the right calf muscle and had hematuria with Xarelto Surgical History History of knee surgery S/P rotator cuff repair Family History Other CAD (coronary artery disease) Cancer Hypertension Stroke Social History Smoking and tobacco status: never smoked Second hand smoke exposure: Yes Smoking risk assessment/counseling performed?: Yes Alcohol intake: never Lives independently: Yes Household members: spouse and children Housing: House Marital status: service: Yes Current occupational status: retired Pets and animals: Yes History of recent travel: No Current gender identity: Male Vitals/I&O/Wt Last Vital Signs Temp 98.5 F 12/12/20 10:35 Pulse 129 H 12/12/20 12:16 Resp 23 H 12/12/20 12:16 BP 137/89 12/12/20 12:16 Pulse Ox 93 12/12/20 12:16 12/11/20 12/12/20 12/12/20 22:59 06:59 14:59 Intake Total 12.0 / 12.0 Balance 12.0 / 12.0 Weight last 48 hrs Weight 124.738 kg Physical Exam Const: COMMON NORMALS: no acute distress, patient oriented x3 and alert HENMT: COMMON NORMALS: normocephalic and atraumatic HEAD & SCALP: normocephalic and atraumatic Eye: COMMON NORMALS: EOMs intact bilaterally, conjunctivae normal and no scleral icterus CONJUNCTIVA: Yes conjunctivae normal Neck/C-Spine: COMMON NORMALS: no lymphadenopathy and no meningeal signs Lymph: LYMPHATIC: no lymphadenopathy noted Chest: COMMONS NORMALS: normal palpation of entire chest wall Resp: COMMON NORMALS: No use of accessory muscles OTHER: minimal bibasilar rales Cardio: COMMON NORMALS: No murmurs present (Cardio) RHYTHM: abnormal rhythm irregularly irregular OTHER: trace lower extremity edema GI: COMMON NORMALS: Soft to palpation and non-tender PALPATION: Yes Soft to palpation RECTAL EXAM: Yes deferred : COMMON NORMALS: Yes no CVA tenderness BLADDER/KIDNEY EXAM: Yes no CVA tenderness Back/Pelvis: COMMON NORMALS: no CVA tenderness and thoracic and lumbar spine normal to inspection Extremity: COMMON NORMALS: normal to inspection and capillary refill normal Neuro: COMMON NORMALS: patient oriented x3 and no focal motor deficits SENSORIUM/ORIENTATION: Yes alert MENINGEAL SIGNS: Yes no meningeal signs Psych: COMMON NORMALS: mental status grossly normal, Normal thought process present and cooperative THOUGHT PROCESS: Normal thought process present Skin: COMMON NORMALS: no rashes or lesions noted Data : 12/12/20 10:50 12/12/20 10:50 A&P Assessment and plan (1) Acute on chronic diastolic (congestive) heart failure: Status: Acute (2) Atrial fibrillation with rapid ventricular response: Status: Acute (3) SHER (obstructive sleep apnea): Status: Acute (4) Chronic respiratory failure with hypoxia: Status: Acute (5) Spontaneous hemorrhage: Status: Acute (6) Hypothyroidism: Status: Acute (7) Diabetes mellitus: Status: Acute Additional A&P Information PLAN: Continue home metoprolol and wean off Cardizem gtt. Continue with Lasix diuresis. Once heart rate gets under control heart function will get optimized. Awaiting CTA that was ordered in ER. At this point patient is not interested in therapeutic anticoagulation understanding risk for stroke. Attestations Medical Necessity Statement*: Patient with A.Fib with RVR and CHF exacerbation requires inpatient monitoring and treatment. I expect patient will require more than 2 midnights. Time Spent in Patient Care: Greater than 35 minutes Coding Level of Care Code Acute Speech Pathology Assistant for Matt Fwd Diagnoses Acute on chronic diastolic (congestive) heart failure I50.33 Atrial fibrillation with rapid ventricular response I48.91 SHER (obstructive sleep apnea) G47.33 Chronic respiratory failure with hypoxia J96.11 Spontaneous hemorrhage R58 Hypothyroidism E03.9 Diabetes mellitus E11.9
--- NOTE | 2020-12-12 13:25 | CT_ITS ---
WS: [id number] CTA OF THE CHEST WITH PULMONARY EMBOLISM PROTOCOL TECHNIQUE: High-resolution contrast enhanced CTA of the chest with coronal and sagittal reformatted i mages with pulmonary embolism protocol. MIP images are also reviewed. CLINICAL INFORMATION: dyspnea COMPARISON: CT October 05, 2020 and CTA September 2020 DLP: 608.[address] scans at [facility] use at least one of these dose optimization techniques: automat ed exposure control; mA and/or kV adjustment per patient size (includes targeted exams where dose is matched to clinical indication); or iterative reconstruction. FINDINGS: Moderate chronic emphysematous changes. Cardiomegaly. Coronary calcification. Mild aortic calcificati on. Small right greater than left pleural effusions. Compressive atelectasis right lower lobe. Upper lungs are well aerated. Scattered fibrosis in both lungs. Proximal main pulmonary arteries are normal. Segmental and subsegmental pulmonary arteries are normal . No evidence of pulmonary embolus. Normal caliber thoracic aorta. Adrenal glands are normal. Left upper pole renal cyst measuring 6.3 CM. Fatty atrophy of the pancreas . Moderate spondylitic changes thoracic spine. Mild thoracic kyphosis. CT/CT angio chest PE protcl [id number] IMPRESSION: 1. Proximal main pulmonary arteries are normal. No evidence of pulmonary embol us. 2. Small right greater than left pleural effusions with compressive atelectasi s in the right lower lobe. This is new from previous. 3. Chronic emphysematous changes with scattered areas of subsegmental atelecta sis and fibrosis. No focal consolidation. 4. Cardiomegaly. 5. 6.3 cm left upper pole renal cyst.
[2020-12-12 13:26] LABS: Blood Urine 2+ (Negative); Glucose Urine UA Norm (Normal); Ketones Urine Negative (Negative); Nitrate Urine Negative (Negative); Protein Urine 2+ (Negative); Urine Appearance Clear (CLEAR); Urine Color Dark Yellow (Yellow); pH Urine 5 (5-7)
[2020-12-12 13:27] LABS: Add Urine Microscopic? YES; Bilirubin Urine 1+ (Negative); Leukocyte Esterase Urine Negative (Negative); RBC Urine 0-4 /hpf (0-2); Squamous Epithelial Cell Urine 0-4 /hpf (0-5); Urobilinogen Urine 1 mg/dL (Negative); WBC Urine 0-4 /hpf (0-5)
[2020-12-12 13:28] LABS: Add Urine Culture? No; Amorphous Sediment Urine 4+ /hpf; Bacteria Urine 1+ /hpf
[2020-12-12 13:40] LABS: Troponin 5 2HR 22.44 ng/L (0-15); Troponin 5 2HR Delta 1.44 ABS# (0-10)
[2020-12-12] MEDS: iohexol 350 mg/mL 100 mL Btl IV (14:54)
[2020-12-12] MEDS: enoxaparin 40 mg/0.4 mL Syringe SUBCUT (16:38)
[2020-12-12] MEDS: FUROsemide 10 mg/mL SDV 4mL 40 MG IVP ×2 (16:38→21:13)
--- NOTE | 2020-12-12 16:49 | ECG_ITS ---
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 Measurements Intervals [place] Rate: 103 P: RI: QRS: -2 QRSD: 109 T: 91 QT: 389 QTc: 511 Interpretive Statements ATRIAL FIBRILLATION WITH RAPID VENTRICULAR RESPONSE WITH ABERRANT CONDUCTION OR VENTRICULAR PREMATURE COMPLEXES NONSPECIFIC T-WAVE ABNORMALITY Compared to ECG 12/12/2020 12:58:51 Ventricular premature complex(es) now present Aberrant conduction of supraventricular beat(s) now present Intraventricular conduction delay no longer present T-wave abnormality still present Electronically Signed On 12-12-2020 18:57:17 NATURAL SCIENCES DEPARTMENT CHAIR by Sarah Merlos M.D. [id number]
[2020-12-12 17:01] LABS: Glucose Point of Care 83 mg/dL (70-110)
[2020-12-12] MEDS: tamsulosin 0.4 mg Capsule PO (18:29)
[2020-12-12] MEDS: pantoprazole DR 40 mg Tablet PO (18:29)
--- NOTE | 2020-12-12 19:07 | PM.CONSULT ---
Providers/Reason For Consult Consulting Physican/Specialty*: NICK Chase MD/cardiology Reason for Consult*: Atrial fibrillation with rapid ventricular rate/congestive heart failure Attending Physician: Dimitri Valerio MD Primary Care Provider: Emil Oliveira DO History of Present Illness History of Present Illness Lupillo Silveira is a 75 year old male with a history of chronic intermittent atrial fibrillation, recurrent diastolic heart failure, is presenting with progressive shortness of breath for the last more than a week. He was seen in my office today with these symptoms. He was found to be extremely short of breath, unable to walk across the room. For this reason, he was sent to the emergency room. Pulmonary embolism was ruled out. He was found to be in atrial fibrillation with rapid ventricular rate and also with features of congestive heart failure. He is admitted to the hospital for further evaluation and management. He was started on IV Cardizem in the emergency room. This patient is known to have atrial fibrillation intermittently for the last few years. Lately he has been consistently staying in the atrial fibrillation. He was on beta-shiva and digoxin for a while. In September of last year, he was admitted to the hospital with respiratory failure and COVID-19 infection. In October, he was readmitted to the hospital with hypotension. At that time he was taken off the beta-shiva. Sometime in between, he also was taken off the digoxin. For the last more than a week, he been getting more and more short of breath. He did not have any chest pain as such. He may get occasional chest discomfort/heaviness. No fever or chills. No significant cough. He gets extremely short of breath and weak just walking across the room. Since the recent Covid infection, his overall functional status has been declining. He has a history of chronic back pain and hip pain. He has been getting physical therapy for these. He has no previous history for coronary artery disease or myocardial infarction. He had a myocardial perfusion imaging few years ago and was unremarkable. No recent work-up for ischemia has been done. He was on amiodarone for a while and then was taken off this medication for unknown reasons. He is also known to have obstructive sleep apnea, dyslipidemia, hypothyroidism. Patient was on Xarelto and Eliquis. Both had to be discontinued because of spontaneous bleed. 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 Shortness of breath and extreme weakness EYES: No blurring of vision or other visual disturbances lately. ENT: No hoarseness of voice, auditory disturbances or sore throat. CARDIOVASCULAR: As mentioned above. Occasional vague chest pains RESPIRATORY: As mentioned above GASTROINTESTINAL: No hematemesis or melena. GENITOURINARY: No dysuria or hematuria. INTEGUMENTARY: No skin rashes or history of skin cancer. NEURO: No transient ischemic attacks or amaurosis. PSYCHIATRIC: No history of psychosis or major depression. HEMATOLOGIC: No bleeding disorders or significant anemia. ENDOCRINE: No history of polyuria or polydipsia. MUSCULOSKELETAL: Chronic back pains and joint pains ALLERGY/IMMUNOLOGY: As mentioned above. Meds/Allergies Home Medications and Allergies Home Medications Medication Instructions Recorded Confirmed Last Taken Type Ozempic 1 mg SUBCUT Q7D 12/11/19 12/12/20 12/09/20 History cholecalciferol (vitamin D3) 2,000 unit PO DAILY@06 12/11/19 12/12/20 12/12/20 History [Vitamin D3] levothyroxine [Synthroid] 137 mcg PO DAILY@04 12/11/19 12/12/20 12/12/20 History modafinil 200 mg PO DAILY@06 12/11/19 12/12/20 12/12/20 History pantoprazole 40 mg PO BID@18 12/11/19 12/12/20 12/12/20 History tamsulosin 0.4 mg capsule 0.4 mg PO BID@,18 cap 07/17/20 12/12/20 12/12/20 History furosemide 40 mg tablet 40 mg PO DAILY PRN tab 08/15/20 12/12/20 Unknown History potassium chloride 8 meq PO DAILY PRN 09/13/20 12/12/20 Unknown History rosuvastatin 40 mg PO DAILY@0600 10/04/20 12/12/20 12/12/20 History tiotropium bromide 18 mcg capsule 1 cap INHALATION DAILY #30 inh 11/22/20 12/12/20 12/12/20 Rx with inhalation device acetaminophen 500 mg tablet 1,000 mg PO QID PRN tab 12/12/20 12/12/20 Unknown History albuterol sulfate 2.5 mg CONTINUOUS NEBULIZATION QID 12/12/20 12/12/20 12/12/20 History PRN ml hydrocodone-acetaminophen 1 tab PO Q8H PRN 12/12/20 12/12/20 1 Week Ago History ~12/05/20 lisinopril 20 mg PO DAILY 12/12/20 12/12/20 Unknown History metoprolol tartrate 50 mg PO BID 12/12/20 12/12/20 Unknown History Allergies Allergy/AdvReac Type Severity Reaction Status Date / Time apixaban [From Eliquis] Allergy Severe Unknown Verified 12/12/20 19:17 tolmetin [From Tolectin] Allergy ALGY-Rash Verified 12/12/20 09:22 Current Medications Current Medications Generic Name Dose Route Start Last Admin Trade Name Freq PRN Reason Stop Dose Admin Enoxaparin Sodium 40 mg 12/12/20 15:30 12/12/20 16:38 Enoxaparin 40 Mg/0.4 Ml Syringe SUBCUT 40 mg Q24H ASHTYN Administration Furosemide 40 mg 12/12/20 14:26 12/12/20 16:38 Furosemide 10 Mg/Ml Sdv 4ml IVP 40 mg Q24H ASTHYN Administration Diltiazem HCl 125 mg/ Sodium 125 mls @ 0 mls/hr 12/12/20 11:00 12/12/20 12:36 Chloride IV 10 mg/hr .Q0M ASHTYN 10 mls/hr Titration Protocol Per Protocol Insulin Aspart 0 unit 12/12/20 18:00 12/12/20 17:52 Insulin Aspart 100 Unit/1 Ml SUBCUT Not Given TIDWM ASHTYN Protocol Pantoprazole Sodium 40 mg 12/12/20 18:00 12/12/20 18:[address] 40 Mg Tablet PO 40 mg BID@ ASHTYN Administration Tamsulosin HCl 0.4 mg 12/12/20 18:00 12/12/20 18:29 Tamsulosin 0.4 Mg Capsule PO 0.4 mg BID@ ASHTYN Administration PFSH Acute PFSH: Medical History Atrial fibrillation status post cardioversion Benign prostatic hyperplasia Cerebral arterial aneurysm Chronic diastolic heart failure Chronic diastolic heart failure secondary to coronary artery disease Dyslipidemia Hyperlipidemia Hypertension Hypothyroidism Intermittent atrial fibrillation Narcolepsy Peripheral arterial disease Right fibular fracture Shortness of breath on exertion Spontaneous hemorrhage This patient blood into the right calf muscle and had hematuria with Xarelto Surgical History History of knee surgery S/P rotator cuff repair Family History Other CAD (coronary artery disease) Cancer Hypertension Stroke Social History Smoking and tobacco status: never smoked Second hand smoke exposure: Yes Smoking risk assessment/counseling performed?: Yes Alcohol intake: never Lives independently: Yes Household members: spouse and children Housing: House Marital status: service: Yes Current occupational status: retired Pets and animals: Yes History of recent travel: No Current gender identity: Male Vitals/I&O/Wt Last Vital Signs Temp 98.7 F 12/12/20 13:00 Pulse 101 H 12/12/20 16:00 Resp 17 12/12/20 16:00 BP 141/108 12/12/20 16:00 Pulse Ox 93 12/12/20 16:00 12/12/20 12/12/20 12/12/20 06:59 14:59 22:59 Intake Total 12.0 / 12.0 480 / 492.0 Output Total 1430 / 1430 Balance 12.0 / 12.0 -950 / -938.0 Weight last 48 hrs Weight 280 lb 8 oz Weight 275 lb Physical Exam Narrative: EXAM NARRATIVE: GENERAL: The patient is alert and oriented times three. Mild respiratory distress HEENT: No significant pallor, icterus or lymphadenopathy. The pupils are symmetrical. Oral cavity: There are no mucous membrane lesions. Funduscopic examination: The fundus is not visualized NECK: Trachea appears to be central. No masses noted. No JVD or thyromegaly appreciated. No carotid bruit. RESPIRATORY: Chest is symmetrical. No intercostals muscle retraction or any accessory muscle activation. There is no chest wall tenderness. Breath sounds are heard bilaterally. No rales or rhonchi heard. No evidence of any consolidation. Breath sounds are diminished in the bases BREASTS: Deferred. HEART: The PMI is in the 5th left intercostals space just inside the midclavicular line. No palpable precordial events. S1 and S2 are normal. No S3 or S4 heard. No pericardial rub or any click heard. ABDOMEN: No vessel pulsations or distention. No tenderness. No organomegaly appreciated. No abdominal bruit. Bowel sounds are normally heard. : Deferred. RECTAL: Deferred. LYMPHATIC: No lymphadenopathy noted in the neck or groin. EXTREMITIES: No edema or cyanosis. No clubbing. The pulses are symmetrical bilaterally. Normal volume and amplitude MUSCULOSKELETAL: No acute joint deformities or swelling SKIN: There are no significant rashes or ecchymosis NEUROPSYCHIATRIC: The patient is alert and oriented x3. Appears to be in a good mood. The higher functions are grossly within normal limits. No tremors or rigidity noted. A&P Assessment and plan (1) Acute on chronic diastolic (congestive) heart failure: Most likely this is precipitated with atrial fibrillation and rapid ventricular rate. He may be carefully treated with IV diuretics. Considering the possibility of ischemia causing the heart failure, I may do a myocardial perfusion imaging tomorrow. Also will do a limited 2D echocardiogram to evaluate LV ejection fraction. After reviewing the results, further recommendations will be made. Status: Acute (2) Atrial fibrillation with rapid ventricular response: Patient is on IV Cardizem. I may start him on amiodarone p.o. Status: Acute (3) Chronic respiratory failure with hypoxia: Management as per the primary. Status: Acute (4) Spontaneous hematoma of lower leg: Because the patient is a history of recurrent spontaneous bleeding, it was decided to hold off on any anticoagulation. Status: Acute Additional A&P Information His other problems are Narcolepsy Obstructive sleep apnea Degenerative joint disease Hypothyroidism Cerebral artery aneurysm Morbid obesity Recent COVID-19 infection Based on the patient's clinical response and the results of the above, further recommendations will be made. Thank you for the opportunity to evaluate this patient and make these recommendations Consult Attestations Medical Necessity Statement: Patient requires continued hospital stay for close monitoring and further management Coding Level of Care Code Acute Paper Folding Machine Operator for Matt Rocha History Detailed Exam Detailed Medical Decision Making High Complexity Diagnoses Acute on chronic diastolic (congestive) heart failure I50.33 Atrial fibrillation with rapid ventricular response I48.91 Chronic respiratory failure with hypoxia J96.11 Spontaneous hematoma of lower leg R23.3 Time Spent (min) 60
[2020-12-12 19:57] LABS: Glucose Point of Care 115 mg/dL (70-110)
[2020-12-12] MEDS: amiodarone 200 mg Tablet 400 MG PO (21:12)
[2020-12-12] MEDS: sennosides 8.6 mg Tablet 17.2 MG PO (21:12)
[2020-12-12] MEDS: potassium chloride ER 20 mEq Tablet PO (21:13)
[2020-12-12] MEDS: metoprolol tartrate 50 mg Tablet PO (21:15)
[2020-12-12] MEDS: ipratropium-albuterol 3 mL Neb INHALATION (23:18)
[2020-12-13] VITALS (14 sets, daily range): BP systolic 78–115; BP diastolic 42–86; PULSE 83–119; RESP 12–26; TEMP 36.2–36.7; O2SAT 92–99
[2020-12-13] MEDS: amiodarone 200 mg Tablet 400 MG PO ×3 (04:05→20:39)
[2020-12-13] MEDS: potassium chloride ER 20 mEq Tablet PO ×2 (04:06→12:16)
[2020-12-13] MEDS: FUROsemide 10 mg/mL SDV 4mL 40 MG IVP ×2 (04:06→12:16)
[2020-12-13] MEDS: levothyroxine 137 mcg Tablet PO (04:07)
[2020-12-13 04:45] LABS: Basophils % 0.8 %; Eosinophils # 0.1 10^3/uL (0.0-0.8); Eosinophils % 2.2 %; Hemoglobin 13.1 g/dL (11.7-16.6); Lymphocytes # 1.1 10^3/uL (0.8-4.8); Lymphocytes % 22.8 %; Mean Corpuscular Hemoglobin 30.4 pg (28.0-34.0); Mean Corpuscular Volume 95.1 fL (80-94); Mean Platelet Volume 10.9 fL (7.4-10.4); Monocytes # 0.5 10^3/uL (0.2-0.9); Monocytes % 10.3 %; Neutrophils # 3.15 10^3/uL (1.8-7.7); Neutrophils % 63.7 %; Nucleated Red Blood Cells % 0 %; Platelet Count 177 10^3/cmm (130-400); Red Blood Count 4.31 10^6/uL (4.1-5.3)
[2020-12-13 05:07] LABS: Alanine Aminotransferase 17 U/L (0-41); Albumin Level 3.4 g/dL (3.5-5.2); Alkaline Phosphatase 64 IU/L (40-130); Anion Gap 11.9 (5-19); Aspartate Amino Transferase 26 U/L (0-40); Blood Urea Nitrogen 8 mg/dL (8-23); Calcium 8.7 mg/dL (8.5-10.5); Carbon Dioxide 29 mmol/L (22-29); Chloride 103 mmol/L (98-107); Globulin 2.5 g/dL (1.3-4.6); Glucose 89 mg/dL (65-115); Osmolality Calculated 288 mOsm/kg (285-295); Potassium 3.9 mmol/L (3.5-5.1); Sodium 140 mmol/L (136-145); Total Bilirubin 1.1 mg/dL (0.15-1.2); Total Protein 5.9 g/dL (6.6-8.7)
[2020-12-13] MEDS: cholecalciferol (vitamin D3) 1,000 unit Tablet 2000 UNIT PO (05:36)
[2020-12-13] MEDS: pantoprazole DR 40 mg Tablet PO ×2 (05:37→17:08)
[2020-12-13] MEDS: tamsulosin 0.4 mg Capsule PO ×2 (05:38→17:08)
[2020-12-13] MEDS: atorvastatin 40 mg Tablet 80 MG PO (05:42)
--- NOTE | 2020-12-13 06:28 | ECG_ITS ---
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 Interpretive Statements NAME OF STUDY: LEXISCAN SESTAMIBI STRESS TEST INDICATION: RECURRENT CHF, PROCEDURE: At the baseline, the EKG revealed atrial fibrillation with rapid ventricular rate of 107 bpm. The baseline blood pressure was 123/93 mm Hg with a heart rate of 107 beats/min. Lexiscan was infused over a period of 20 seconds. A total of 0.4 milligrams of Lexiscan was infused. The stress phase was continued for a total of 5 minutes. Heart rate at the end of the stress phase was 98 with a blood pressure 102/81. The EKG at the peak infusion revealed no significant changes. Sestamibi was injected 20 seconds after the Lexiscan infusion. Blood pressure at the end of the recovery phase was 111/83 with a heart rate of 99 per minute. CONCLUSION: 1. No significant EKG changes with the LexiScan infusion 2. No LexiScan induced chest pain or cardiac arrhythmia 3. Normal blood pressure and heart rate response 4. Sestamibi/sestamibi perfusion scan pending; see separate report. Electronically Signed On 12-20-2020 9:00:00 CDT by Jaylyn Chase M.D. [id number]
[2020-12-13 06:48] LABS: Glucose Point of Care 97 mg/dL (70-110)
--- NOTE | 2020-12-13 07:18 | NMCV_ITS ---
NM linda perf SPECT r/s* [id number] uLpillo Silveira Age: 75 Gender: M : 1945 Exam Date: 12/13/2020 07:33 Ordering Phys: Jaylyn Chase MD ([email or web address]) Technologist: SANDRA Landa Exam Location: [facility] Indications: SOB SENT FROM HEART CARE STRESS TEST Please see separate stress test report in [facility] for full findings IMAGE PROTOCOL Rest/Stress 1 Lexiscan Day Radiopharmaceutical Dose (mCi) Administration Site Administered by Rest: Tc-99m 11.0 IV SANDRA Rasheed Sestamibi Stress:Tc-99m 33.0 IV SANDRA Rasheed Sestamibi Rest: 13-Dec-2020 60 Discovery 630 Stress: 13-Dec-2020 30 Discovery 630 0.4mg Lexiscan. Images obtained in supine and prone position. SPECT RESULTS Technical Quality: Good Raw Data Analysis: Normal Image Corrections: Patient motion artifact - motion correction applied to rest and stress images. Summed Stress Score: 20 Summed Rest Score: 15 Summed Difference Score: 5 PERFUSION FINDINGS Moderate area of severely decreases uptake in the basal mid and apical inferior wall region with subtle areas of reversibility based on the supine imaging. However based on the prone imaging, there is no significant reversibility. Minimally decreased aseptic was noted in the mid and apical anterior wall region, with a subtle area of reversibility with the supine imaging. With the prone imaging, there was no significant reversibility. Slightly decreased tracer uptake also noted in the inferoseptal and inferolateral regions, with no significant reversibility. FUNCTIONAL RESULTS (calculated via Gated SPECT) Stress Image LV EF (%): 22 Stress EDV (mL):237 TID: 1.03 Stress ESV (mL):184 FUNCTIONAL FINDINGS: Segmental wall motion analysis revealed a severe diffuse hypokinesia of the left ventricle. IMPRESSIONS 1. Myocardial perfusion imaging revealing areas of reversible defect in the anterior wall and inferior regions, suggestive of ischemia in the distribution of the left anterior descending artery and right coronary artery. However because of the inconsistency in these findings, most likely it is related to attenuation artifact. 2. Markedly diminished left ventricular ejection fraction of 22% 3. Wall motion normalities as mentioned above. 4. Markedly dilated LV cavity with an end-systolic volume of 184 mL Compared to the study from 06/09/2019, there is significant worsening of the LV systolic function and dilatation of the LV cavity Dr Jaylyn Chase MD [facility] (Electronically Signed) Final Date: 13 December 2020 14:08 S
--- NOTE | 2020-12-13 07:30 | PC.NURSE ---
Patient taken tp nuclear medicine for stress test.
--- NOTE | 2020-12-13 08:37 | PM.PN ---
Subjective Subjective: Interval history: Patient is feeling okay. He had a myocardial perfusion imaging today. He was found to have some areas of reversible and reversible defects. The reversible defects were found to be inconsistent. The LV ejection fraction was 34% by echocardiogram. This is a significant drop from the previous echocardiogram in August. Medications: Reviewed: Yes Medication Review Details: Current Medications Acetaminophen (Acetaminophen 500 Mg Tablet) 1,000 mg PO QID PRN PRN Reason: Pain Hydrocodone Bitart/Acetaminophen (Hydrocodone-Acetaminophen 10-325 Mg Tablet) 1 tab PO Q8H PRN PRN Reason: MODERATE PAIN Albuterol/Ipratropium (Ipratropium-Albuterol 3 Ml Neb) 3 ml INHALATION Q4H PRN PRN Reason: SHORTNESS OF BREATH Last Admin: 12/12/20 23:18 Dose: 3 ml Documented by: Aminophylline (Aminophylline 25 Mg/Ml Sdv 10 Ml) 25 mg IVP Q2M PRN PRN Reason: see dose instructions Stop: 12/14/20 06:28 Amiodarone HCl (Amiodarone 200 Mg Tablet) 400 mg PO Q8H [facility] Last Admin: 12/13/20 04:05 Dose: 400 mg Documented by: Atorvastatin Calcium (Atorvastatin 40 Mg Tablet) 80 mg PO DAILY@0600 [facility] Last Admin: 12/13/20 05:42 Dose: 80 mg Documented by: Dextrose (Dextrose 50% Syringe 50 Ml) 25 ml IVP ONCE PRN; Protocol PRN Reason: hypoglycemia protocol Dextrose (Dextrose 50% Syringe 50 Ml) 50 ml IVP PRN PRN; Protocol PRN Reason: hypoglycemia protocol Enoxaparin Sodium (Enoxaparin 40 Mg/0.4 Ml Syringe) 40 mg SUBCUT Q24H [facility] Last Admin: 12/12/20 16:38 Dose: 40 mg Documented by: Furosemide (Furosemide 10 Mg/Ml Sdv 4ml) 40 mg IVP Q8H [facility] Last Admin: 12/13/20 04:06 Dose: 40 mg Documented by: Glucagon (Glucagon 1 Mg/Ml Inj 1 Ml) 1 mg IM ONCE PRN; Protocol PRN Reason: Adult Acute Hypoglycemia Prot. Diltiazem HCl 125 mg/ Sodium (Chloride) 125 mls @ 0 mls/hr IV .Q0M ASHTYN; Protocol Last Titration: 12/13/20 02:33 Dose: 5 mg/hr, 5 mls/hr Documented by: Dextrose (D5w) 500 mls @ 100 mls/hr IV ONCE PRN; Protocol PRN Reason: Adult Acute Hypoglycemia Prot Insulin Aspart (Insulin Aspart 100 Unit/1 Ml) 0 unit SUBCUT TIDWM [facility]; Protocol Last Admin: 12/13/20 07:04 Dose: Not Given Documented by: Levothyroxine Sodium (Levothyroxine 137 Mcg Tablet) 137 mcg PO DAILY@04 [facility] Last Admin: 12/13/20 04:07 Dose: 137 mcg Documented by: Lisinopril (Lisinopril 20 Mg Tablet) 20 mg PO DAILY [facility] Metoprolol Tartrate (Metoprolol Tartrate 50 Mg Tablet) 50 mg PO 0900,2100 [facility] Last Admin: 12/12/20 21:15 Dose: 50 mg Documented by: Nitroglycerin (Nitroglycerin 0.4 Mg Sublingual Tablet) 0.4 mg SUBLINGUAL Q5M PRN PRN Reason: CHEST PAIN Stop: 12/14/20 06:28 Non-Formulary Medication (Modafinil) 200 mg PO DAILY@06 [facility] Last Admin: 12/13/20 04:00 Dose: Not Given Documented by: Ondansetron HCl (Ondansetron 2 Mg/Ml Sdv 2 Ml) 4 mg IVP Q6H PRN PRN Reason: NAUSEA AND VOMITING Ondansetron HCl (Ondansetron 2 Mg/Ml Sdv 2 Ml) 4 mg IVP Q2M PRN PRN Reason: NAUSEA Pantoprazole Sodium (Pantoprazole Dr 40 Mg Tablet) 40 mg PO BID@ [facility] Last Admin: 12/13/20 05:37 Dose: 40 mg Documented by: Potassium Chloride (Potassium Chloride Er 20 Meq Tablet) 20 meq PO Q8H [facility] Last Admin: 12/13/20 04:06 Dose: 20 meq Documented by: Regadenoson (Regadenoson 0.4 Mg/5 Ml Syringe) 0.4 mg IVP ONCE PRN PRN Reason: Lexiscan Stress Test Senna (Sennosides 8.6 Mg Tablet) 17.2 mg PO BEDTIME [facility] Last Admin: 12/12/20 21:12 Dose: 17.2 mg Documented by: Tamsulosin HCl (Tamsulosin 0.4 Mg Capsule) 0.4 mg PO BID@18 [facility] Last Admin: 12/13/20 05:38 Dose: 0.4 mg Documented by: Tiotropium Sadorus (Tiotropium 18 Mcg Mdi) 18 mcg INHALATION DAILY.RESPIRATORY ASHTYN Vitamin D (Cholecalciferol (Vitamin D3) 1,000 Unit Tablet) 2,000 unit PO DAILY@06 [facility] Last Admin: 12/13/20 05:36 Dose: 2,000 unit Documented by: Vitals/I&O/Wt Last Vital Signs Temp 98 F 12/13/20 04:00 Pulse 90 12/13/20 04:00 Resp 24 H 12/13/20 04:00 BP 108/86 12/13/20 04:00 Pulse Ox 92 12/13/20 04:00 12/12/20 12/13/20 12/13/20 22:59 06:59 14:59 Intake Total 566.5 / 578.5 293 / 871.5 Output Total 2980 / 2980 1850 / 4830 720 / 720 Balance -2413.5 / -2401.5 -1557 / -3958.5 -720 / -720 Weight last 48 hrs Weight 280 lb 8 oz Weight 275 lb Physical Exam Narrative: EXAM NARRATIVE: GENERAL: The patient is alert and oriented times three. Mild respiratory distress. Obese HEENT: No significant pallor, icterus or lymphadenopathy. Oral cavity: There are no mucous membrane lesions. NECK: Trachea appears to be central. No masses noted. No JVD or thyromegaly appreciated. No carotid bruit. RESPIRATORY: Chest is symmetrical. No intercostals muscle retraction or any accessory muscle activation. There is no chest wall tenderness. Breath sounds are heard bilaterally. No rales or rhonchi heard. No evidence of any consolidation. Breath sounds are diminished in the bases BREASTS: Deferred. HEART: The PMI is in the 5th left intercostals space just inside the midclavicular line. No palpable precordial events. S1 and S2 are normal. No S3 or S4 heard. No pericardial rub or any click heard. ABDOMEN: No vessel pulsations or distention. No tenderness. No organomegaly appreciated. No abdominal bruit. Bowel sounds are normally heard. : Deferred. RECTAL: Deferred. LYMPHATIC: No lymphadenopathy noted in the neck . EXTREMITIES: No edema or cyanosis. No clubbing. The pulses are symmetrical bilaterally. Normal volume and amplitude MUSCULOSKELETAL: No acute joint deformities or swelling SKIN: There are no significant rashes or ecchymosis NEUROPSYCHIATRIC: The patient is alert and oriented x3. Appears to be in a good mood. The higher functions are grossly within normal limits. Patient has some intention tremor. Data : 12/14/20 04:09 12/14/20 04:09 Other Labs: Laboratory Last Values WBC 5.0 10^3/uL (4.0-10.0) 12/13/20 04:26 RBC 4.31 10^6/uL (4.1-5.3) 12/13/20 04:26 Hgb 13.1 g/dL (11.7-16.6) 12/13/20 04:26 Hct 41.0 % (42.0-52.0) L 12/13/20 04:26 MCV 95.1 fL (80-94) H 12/13/20 04:26 MCH 30.4 pg (28.0-34.0) 12/13/20 04:26 MCHC 32.0 g/dL (30.0-36.0) 12/13/20 04:26 RDW 14.0 % (12.1-15.1) 12/13/20 04:26 Plt Count 177 10^3/cmm (130-400) 12/13/20 04:26 MPV 10.9 fL (7.4-10.4) H 12/13/20 04:26 Neut % (Auto) 63.7 % 12/13/20 04:26 Lymph % (Auto) 22.8 % 12/13/20 04:26 [place] % (Auto) 10.3 % 12/13/20 04:26 Eos % (Auto) 2.2 % 12/13/20 04:26 Baso % (Auto) 0.8 % 12/13/20 04:26 Neut # (Auto) 3.15 10^3/uL (1.8-7.7) 12/13/20 04:26 Lymph # (Auto) 1.1 10^3/uL (0.8-4.8) 12/13/20 04:26 [place] # (Auto) 0.5 10^3/uL (0.2-0.9) 12/13/20 04:26 Eos # (Auto) 0.1 10^3/uL (0.0-0.8) 12/13/20 04:26 Baso # (Auto) 0.0 10^3/uL (0.0-0.1) 12/13/20 04:26 Nucleated RBC % (auto) 0 % 12/13/20 04:26 Nucleated RBCs # 0.0 /100WBC 12/13/20 04:26 Sodium 140 mmol/L (136-145) 12/13/20 04:26 Potassium 3.9 mmol/L (3.5-5.1) 12/13/20 04:26 Chloride 103 mmol/L (98-107) 12/13/20 04:26 Carbon Dioxide 29 mmol/L (22-29) 12/13/20 04:26 Anion Gap 11.9 (5-19) 12/13/20 04:26 BUN 8 mg/dL (8-23) 12/13/20 04:26 Creatinine 1.3 mg/dL (0.7-1.2) H 12/13/20 04:26 GFR Calculation Not Reportable 12/13/20 04:26 Glucose 89 mg/dL (65-115) 12/13/20 04:26 POC Glucose 97 mg/dL (70-110) 12/13/20 06:45 Calculated Osmolality 288 mOsm/kg (285-295) 12/13/20 04:26 Calcium 8.7 mg/dL (8.5-10.5) 12/13/20 04:26 Magnesium 1.7 mg/dL (1.7-2.3) 12/12/20 10:50 Total Bilirubin 1.1 mg/dL (0.15-1.2) 12/13/20 04:26 AST 26 U/L (0-40) 12/13/20 04:26 ALT 17 U/L (0-41) 12/13/20 04:26 Alkaline Phosphatase 64 IU/L (40-130) 12/13/20 04:26 Creatine Kinase 132 U/L (39-308) 12/12/20 10:50 Troponin T Baseline 21 ng/L (0-15) H 12/12/20 10:50 Troponin T 120 Minute 22.44 ng/L (0-15) H 12/12/20 12:50 Delta Troponin T 1.44 ABS# (0-10) 12/12/20 12:50 Troponin T Hi Sens 6Hr 19.40 ng/L (0-15) H 12/12/20 16:55 Troponin T Hi Sens 6Hr Delta -1.60 ng/L (0-12) L 12/12/20 16:55 NT-Pro-B Natriuret Pep 64097 pg/mL (0-450) H 12/12/20 10:50 Total Protein 5.9 g/dL (6.6-8.7) L 12/13/20 04:26 Albumin 3.4 g/dL (3.5-5.2) L 12/13/20 04:26 Globulin 2.5 g/dL (1.3-4.6) 12/13/20 04:26 Urine Color Dark yellow (Yellow) 12/12/20 12:33 Urine Appearance Clear (CLEAR) 12/12/20 12:33 Urine pH 5 (5-7) 12/12/20 12:33 Ur Specific [place] 1.030 (1.005-1.030) 12/12/20 12:33 Urine Protein 2+ (Negative) H 12/12/20 12:33 Urine Glucose (UA) Norm (Normal) 12/12/20 12:33 Urine Ketones Negative (Negative) 12/12/20 12:33 Urine Blood 2+ (Negative) H 12/12/20 12:33 Urine Nitrate Negative (Negative) 12/12/20 12:33 Urine Bilirubin 1+ (Negative) H 12/12/20 12:33 Urine Urobilinogen 1 mg/dL (Negative) H 12/12/20 12:33 Ur Leukocyte Esterase Negative (Negative) 12/12/20 12:33 Urine RBC 0-4 /hpf (0-2) H 12/12/20 12:33 Urine WBC 0-4 /hpf (0-5) H 12/12/20 12:33 Ur Squamous Epith Cells 0-4 /hpf (0-5) H 12/12/20 12:33 Amorphous Sediment 4+ /hpf 12/12/20 12:33 Urine Bacteria 1+ /hpf (NONE) H 12/12/20 12:33 A&P Assessment and plan (1) Abnormal cardiovascular stress test: The implications of the myocardial perfusion imaging findings are discussed with the patient in detail. In view of the significant drop in the LV ejection fraction and the abnormal perfusion imaging, in order to further evaluate his coronary status, he requires a cardiac catheterization. The risk of bleeding, hematoma, vascular injury, myocardial infarction, CVA, renal failure and other concomitant complications were explained in detail. Patient understood this well and consented to proceed. We may schedule the procedure sometime tomorrow. Status: Acute (2) Acute on chronic systolic heart failure: Patient has significant drop in the LV systolic function. Ejection fraction was 50% in August 2020. Today he is 34% by echocardiogram. Possibility of underlying coronary ischemia causing this is a strong consideration. Based on the cardiac catheterization data, further management decisions will be made. The dose of the Lasix will be cut back. Status: Acute (3) Atrial fibrillation with rapid ventricular response: Patient may be given digoxin 0.25 mg every 6 hours x3 followed by 0.125 mg daily Status: Acute (4) Chronic respiratory failure with hypoxia: Management as per the primary. Status: Acute (5) Spontaneous hematoma of lower leg: Because the patient is a history of recurrent spontaneous bleeding, it was decided to hold off on any anticoagulation. 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
[2020-12-13] MEDS: regadenoson 0.4 Mg/5 ml Syringe IVP (08:44)
--- NOTE | 2020-12-13 10:15 | PC.NURSE ---
Call placed to Dr. Valerio regarding patient's BP and scheduled medicines to discuss which ones need to be held ( lisinopril, metoprolol, amiodarone). Dr. Valerio states he will come see patient.
--- NOTE | 2020-12-13 10:33 | P.PN_ITS ---
Subjective Subjective: Interval history: Patient reports feeling better this morning. Denies shortness of breath or chest pain. Patient reports that he for a long time was not taking any blood pressure medications as his blood pressure and heart rate remained in good range. He is concerned to have metoprolol restarted. Vitals/I&O/Wt Last Vital Signs Temp 97.4 F L 12/13/20 10:00 Pulse 99 12/13/20 10:00 Resp 12 12/13/20 10:00 BP 100/79 12/13/20 10:00 Pulse Ox 97 12/13/20 10:00 12/12/20 12/13/20 12/13/20 22:59 06:59 14:59 Intake Total 566.5 / 578.5 293 / 871.5 39.75 / 39.75 Output Total 2980 / 2980 1850 / 4830 720 / 720 Balance -2413.5 / -2401.5 -1557 / -3958.5 -680.25 / -680.25 Weight last 48 hrs Weight 127.233 kg Weight 124.738 kg Physical Exam Narrative: EXAM NARRATIVE: Lungs with very minimal bibasilar Rales. Heart is irregularly irregular Data : 12/13/20 04:26 12/13/20 04:26 A&P Assessment and plan (1) Acute on chronic diastolic (congestive) heart failure: Status: Acute (2) Atrial fibrillation with rapid ventricular response: Status: Acute (3) SHER (obstructive sleep apnea): Status: Acute (4) Chronic respiratory failure with hypoxia: Status: Acute (5) Spontaneous hemorrhage: Status: Acute (6) Hypothyroidism: Status: Acute (7) Diabetes mellitus: Status: Acute Additional A&P Information PLAN: Continue amiodarone and discontinue metoprolol and lisinopril. Discussed with patient that he may benefit from low-dose metoprolol. Will discuss with Dr. Chase. Awaiting systemic Lexiscan test result. Attestations Medical Necessity Statement*: Patient with heart failure requires close inpatient monitoring, treatment and evaluation. 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
--- NOTE | 2020-12-13 11:10 | PC.CHAP ---
Pastoral Care Encounter/Spiritual Assessment Type of Contact [] Declined club licensee visit [] Patient/Family/Request visit [] Outpatient visit [] Follow-up visit [] Physician referral [] Code/Alert [x] Routine visit [] Staff referral [] Actively dying [] Patient sleeping [] Family support [] [] Out of room [] Palliative care [] [x] Receiving care in room [] Pre-surgical visit [] Trauma [] Long length of stay [] ICU visit [] Other: Relational/Emotional Strength [x] Patient feels connected with others/family/visitors/staff [] Distress [] Loneliness/isolation [] Abandonment Spirituality of Patient [x] Person of Sissy [] Attends Presybeterian of their Sissy [x] Believes in Prayer [] Reads Bible or Druze materials [] There are Spiritual issues to be addressed Vice President Of Advertising Interventions [x] Prayer [x] Active listening [x] Non-anxious presence [x] Spiritual/emotional support [] Crisis/trauma care [x] Spiritual counseling [] Bereavement support [] Provided bereavement packet [] Provided Bible/devotional materials [] Provided toy/stuffed animal, coloring book to patient or family member [] Provided Communion [] Anointing/[place] [] Salvation [x] Completed spiritual assessment [] Other: Impact on Illness or Injury [] Angry [] Fearful [x] Anxious [] Often cries [] Exhaustion [] Unable to work [] Unable to attend restorationism [] Unable to walk/stand [] Unable to read [] Unable to drive [] Unable to eat/drink [] Unable to sleep [] Unable to be with family [] Patient intubated [] Other: Summary doesn't know about tests, hopes things everardo 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
[2020-12-13 11:41] LABS: Glucose Point of Care 219 mg/dL (70-110)
[2020-12-13] MEDS: HYDROcodone-acetaminophen 10-325 mg Tablet 1 TAB PO (13:12)
--- NOTE | 2020-12-13 13:45 | PC.NURSE ---
Call placed to Dr. Chase regarding patient's BP of 87/52. Order recceived to give 200ml NS fluid bolus.
[2020-12-13] MEDS: sodium chloride 0.9% 200 ML 999 ML IV (13:57)
[2020-12-13] MEDS: digoxin 250 mcg/ml INJ 2 mL IVP ×2 (14:39→20:40)
[2020-12-13 16:44] LABS: Glucose Point of Care 114 mg/dL (70-110)
[2020-12-13] MEDS: enoxaparin 40 mg/0.4 mL Syringe SUBCUT (17:07)
--- NOTE | 2020-12-13 17:29 | PC.PT ---
Attempted PT evaluation, but patient blood pressure became hypotensive with sitting bedside, so am awaiting improvements with this, patient and nursing to contact me when appropriate.
--- NOTE | 2020-12-13 19:18 | USCV_ITS ---
Lupillo Silveira Age: 75 Gender: M : 1945 Exam Date: 12/13/2020 07:15 Ordering Phys: Jaylyn Chase MD ([email or web address]) Technologist: Angelica Bansal [place] [facility] [place]: Congestive Heart Failure BP: 95 / 68 HR: 90 Rhythm: Sinus Technical Quality: Technically difficult study MEASUREMENTS (Male / Female) Normal Values 2D ECHO LV Diastolic Diameter PLAX 5.3 cm 4.2 - 5.9 / 3.9 - 5.3 cm LV Systolic Diameter PLAX 5.1 cm IVS Diastolic Thickness 1.6 cm 0.6 - 1.0 / 0.6 - 0.9 cm IVS Systolic Thickness 1.8 cm LVPW Diastolic Thickness 1.5 cm 0.6 - 1.0 / 0.6 - 0.9 cm LVPW Systolic Thickness 2.1 cm RV Chamber Size 3.3 cm LVOT Diameter 2.0 cm LV Ejection Fraction 2D Teich 7.5 % LV Ejection Fraction MOD 2C 34.2 % LV Ejection Fraction 2C AL 34.5 % LA Diameter 5.2 cm LA Width 5.1 cm LA Height 6.6 cm RA Width 4.5 cm RA Height 6.8 cm Aorta at Sinotubular Diameter 3.5 cm M-MODE Aortic Annulus Diameter 2.8 cm LA Ao Ratio MM 1.8 MV E Point Septal Separation 1.8 cm FINDINGS Left Ventricle Normal LV size with a diminished ejection fraction of 34%. Diffuse hypokinesia of left ventricle. Right Ventricle Mildly dilated right ventricle with normal ejection fraction Right Atrium Moderately increased right atrial size. Left Atrium Moderately increased left atrial size. Mitral Valve Thickened mitral valve. Aortic Valve Thickened aortic valve. Tricuspid Valve Could not be visualized well Pulmonic Valve Pulmonic valve not well visualized. Pericardium Mildly dilated IVC Aorta Normal aortic annulus size. CONCLUSIONS Normal LV size with a diminished ejection fraction of 34%. Diffuse hypokinesia of left ventricle. Moderate biatrial enlargement Thickened aortic and mitral valves. There is no pericardial effusion. There is no pericardial effusion. Compared to the study from 10/14/2019, there is a significant drop in the LV ejection fraction from 50% to 34% Dr Jaylyn Chase MD [facility] (Electronically Signed) Final Date: 13 December 2020 14:14 S
[2020-12-13 20:34] LABS: Glucose Point of Care 98 mg/dL (70-110)
[2020-12-13] MEDS: sennosides 8.6 mg Tablet 17.2 MG PO (20:40)
[2020-12-13] MEDS: ipratropium-albuterol 3 mL Neb INHALATION (20:56)
[2020-12-14] VITALS (12 sets, daily range): BP systolic 89–126; BP diastolic 63–85; PULSE 81–120; RESP 12–21; TEMP 36.1–37.2; O2SAT 93–97
[2020-12-14] MEDS: digoxin 250 mcg/ml INJ 2 mL IVP ×2 (01:34→08:21)
[2020-12-14] MEDS: amiodarone 200 mg Tablet 400 MG PO ×3 (03:55→20:39)
[2020-12-14] MEDS: levothyroxine 137 mcg Tablet PO (03:55)
[2020-12-14 04:34] LABS: Basophils % 0.8 %; Eosinophils # 0.1 10^3/uL (0.0-0.8); Eosinophils % 2.2 %; Hematocrit 42.2 % (42.0-52.0); Hemoglobin 13.6 g/dL (11.7-16.6); Lymphocytes # 1.2 10^3/uL (0.8-4.8); Lymphocytes % 23.6 %; Mean Corpuscular HGB Conc 32.2 g/dL (30.0-36.0); Mean Corpuscular Hemoglobin 30.5 pg (28.0-34.0); Mean Corpuscular Volume 94.6 fL (80-94); Mean Platelet Volume 10.9 fL (7.4-10.4); Monocytes # 0.4 10^3/uL (0.2-0.9); Monocytes % 7.9 %; Neutrophils # 3.29 10^3/uL (1.8-7.7); Neutrophils % 65.1 %; Nucleated Red Blood Cells % 0 %; Platelet Count 168 10^3/cmm (130-400); Red Blood Count 4.46 10^6/uL (4.1-5.3); Red Cell Distribution Width 13.7 % (12.1-15.1); White Blood Count 5.1 10^3/uL (4.0-10.0)
[2020-12-14 04:55] LABS: Alanine Aminotransferase 19 U/L (0-41); Albumin Level 3.4 g/dL (3.5-5.2); Alkaline Phosphatase 65 IU/L (40-130); Anion Gap 14.9 (5-19); Aspartate Amino Transferase 30 U/L (0-40); Blood Urea Nitrogen 12 mg/dL (8-23); Calcium 8.5 mg/dL (8.5-10.5); Carbon Dioxide 28 mmol/L (22-29); Chloride 98 mmol/L (98-107); Globulin 2.5 g/dL (1.3-4.6); Glucose 99 mg/dL (65-115); Magnesium 1.6 mg/dL (1.7-2.3); Osmolality Calculated 284 mOsm/kg (285-295); Potassium 3.9 mmol/L (3.5-5.1); Sodium 137 mmol/L (136-145); Total Bilirubin 1.1 mg/dL (0.15-1.2); Total Protein 5.9 g/dL (6.6-8.7)
[2020-12-14 05:05] LABS: NT Pro B Type Natriuretic Pept 5439 pg/mL (0-450)
[2020-12-14] MEDS: cholecalciferol (vitamin D3) 1,000 unit Tablet 2000 UNIT PO (05:16)
[2020-12-14] MEDS: atorvastatin 40 mg Tablet 80 MG PO (05:16)
[2020-12-14] MEDS: tamsulosin 0.4 mg Capsule PO ×2 (05:17→18:00)
[2020-12-14] MEDS: pantoprazole DR 40 mg Tablet PO ×2 (05:17→18:00)
[2020-12-14 07:09] LABS: Glucose Point of Care 193 mg/dL (70-110)
[2020-12-14] MEDS: magnesium sulfate premix 2 GM/50 ML PIGGYBACK IV (08:21)
[2020-12-14] MEDS: potassium chloride ER 20 mEq Tablet PO (08:26)
--- NOTE | 2020-12-14 08:46 | PM.PN ---
Subjective Subjective: Interval history: Patient stress test was concerning and patient is scheduled for coronary angiogram this afternoon. Patient denies shortness of breath or chest pain. He diuresed well. He was concerned about metoprolol yesterday and this was discontinued. His heart rate is 120 this morning. We discussed that patient will likely benefit from small dose metoprolol in addition to amiodarone. Vitals/I&O/Wt Last Vital Signs Temp 98.8 F 12/14/20 07:19 Pulse 120 H 12/14/20 07:37 Resp 18 12/14/20 07:35 BP 126/85 12/14/20 07:19 Pulse Ox 95 12/14/20 07:35 12/13/20 12/14/20 12/14/20 22:59 06:59 14:59 Intake Total 240 / 719.75 Output Total 975 / 2715 375 / 3090 Balance -735 / -1995.25 -375 / -2370.25 Weight last 48 hrs Weight 127.233 kg Weight 124.738 kg Physical Exam Narrative: EXAM NARRATIVE: Lungs are clear. Heart is irregularly irregular. No lower extremity edema. Data : 12/14/20 04:09 12/14/20 04:09 A&P Assessment and plan (1) Acute on chronic diastolic (congestive) heart failure: Status: Acute (2) Atrial fibrillation with rapid ventricular response: Status: Acute (3) SHER (obstructive sleep apnea): Status: Acute (4) Chronic respiratory failure with hypoxia: Status: Acute (5) Spontaneous hemorrhage: Status: Acute (6) Hypothyroidism: Status: Acute (7) Diabetes mellitus: Status: Acute Additional A&P Information PLAN: Continue amiodarone and add metoprolol 25 mg twice daily. Coronary angiogram later this afternoon. Replete magnesium. Hold Lasix for now. Attestations Medical Necessity Statement*: Patient with concern for underlying clinically significant coronary artery disease requires close inpatient monitoring, treatment and evaluation. 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
[2020-12-14] MEDS: metoprolol tartrate 25 mg Tablet PO ×2 (09:46→20:38)
[2020-12-14] MEDS: spironolactone 25 mg Tablet PO (09:46)
[2020-12-14] MEDS: sacubitril/valsartan 24-26 mg Tablet 1 EACH PO ×2 (09:46→18:00)
--- NOTE | 2020-12-14 09:50 | PC.NURSE ---
Dr. marley rounding on patient verbal instructions to give 2 baby aspirins at this time aware of allergies ok to give
[2020-12-14] MEDS: aspirin 81 mg EC Tablet 162 MG PO (10:11)
[2020-12-14 11:29] LABS: Glucose Point of Care 120 mg/dL (70-110)
[2020-12-14] MEDS: diphenhydrAMINE 50 mg Capsule PO (12:03)
[2020-12-14] MEDS: sodium chloride 0.9% 1,000 ML 50 ML IV (12:03)
--- NOTE | 2020-12-14 13:47 | XACV_ITS ---
Exam Room: [facility] Ht: 175 cm Wt: 127 kg BSA: 2.55 m2 Gender: Male : 1945 Any Known Allergies: Other Exam Priority: Routine Procedure(s): Procedure Description: Diagnostic procedure Procedure Description: Left Heart Catheterization Diagnostic Cath Status: Urgent Diagnostic Findings * Left main artery: Patent LAD: Distal LAD has 60% stenosis. First diagonal artery: It has diffuse 60 to 70% stenosis Left circumflex artery: Gives rise to a large OM branch. No significant stenosis is seen in left circumflex artery system. RCA: No significant stenosis seen.. Conclusions 1. This is a 70-year-old white male who was admitted to hospital with features of congestive heart failure and atrial fibrillation. He had a myocardial perfusion imaging which revealed areas of fixed defects with a inconsistent areas of reversibility. His LV ejection fraction by echocardiogram was 34%. This is a significant drop from 50% in August of last year. In view of his presenting symptoms and other abnormal objective findings, in order to further evaluate his coronary status, a cardiac catheterization was recommended. He had a cardiac arrest in 2011 and at that time, he was found to have a high-grade lesion in in the first diagonal branch of the left and descending artery. Since it was a relatively small vessel, I did decide to treat him medically at that time. . 2. I tried to obtain right radial arterial access. But because of the severe spasm, I could not advance the guidewire. Patient is known to have severe tortuosity in the abdominal aorta and did not want as to try the femoral arteries. So I consulted Dr. Crawford to consider a brachial arterial approach. Please refer to the report by Dr. Crawford, for details.. 3. Patient was found to have mild diffuse disease in the right coronary artery and circumflex artery. The left and descending artery was found to have 60% lesions in the distal segment. The diagonal branches found to have around 60 to 70% diffuse disease in the proximal segment. Based on these angiographic findings, it was decided to treat him medically. Recommendations * Transfer back to [facility]. * Guideline directed medical therapy for heart failure. * Beta shiva as tolerated. * Outpatient follow up with Cardiology. Interventional RX Recommendation: medical therapy and/or counseling Diagnostic RX Recommendation: medical therapy and/or counseling Clinical Evaluation EBL: 5mL-10mL Procedural Details Procedure Consent Obtained. Admit Source: In Patient. Pre-Procedure Time Out. Identified patient by full name and date of as verbalized by the patient/guarantor. Does the consent match the physician's order: Yes. Accurate & Complete Informed Consent: Yes. Inpatient/Outpatient History & Physical on Chart: Yes. If H&P is completed, is and addenduem needed: N/A; If yes, is the addendum complete: N/A. Visualize and Verify Site with Patient/Guarantor: N/A. Relevant Radiology Images available: N/A. Pre-op teaching completed and patient verbalized understanding. The risks, benefits, and alternatives of sedation and/or procedure were discussed by physician. The patient agrees to continue. Procedure started. Correct patient, site and procedure confirmed by cath team. PERRLA. 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 Lungs clear x 5 lobes. IV Site on Arrival: 18 gauge in the right forearm. IV Site on Arrival: 18 gauge in the left forearm. Pre Procedural Pulses: right dorsalis pedis was 2+. Pre Procedural Pulses: right posterior tibial was 2+. Pre Procedural Pulses: right radial was 2+. Oxygen started at 2liters/min via nasal canula. right radial was prepped with chloroprep then draped in the usual sterile fashion. right brachial was prepped with chloroprep then draped in the usual sterile fashion. Physician notified. Baseline sample Acquired. HR: 110 BPM. Physician arrived. Physician scrubbed in. Immediate Pre-Procedure Time Out. Correct Patient: Yes; Correct Procedure: Yes; Correct Site: Yes; Correct Patient Position: Yes; Correct Supplies: Yes; Dried Flammable Prep: Yes; Blood Products Available: N/A;. Lidocaine 1% infiltrated to the right radial. Arterial access obtained. wire and needle out. had acess and wire wouldnt advance. Dr. Crawford notified to try and get access. Dr. Crawford arrived. oxymask at 10LPM. Dr. Crawford scrubbed in to take over for Dr. Chase. [facility] Clinical Fraility Score: 4: Vulnerable. 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 Chest Pain Symptom Assessment: Atypical Angina. Cardiovascular Instability: No. Lidocaine 1% infiltrated to the right ulnar. ultra sound arrived. wire and needle out. try ultra sound to try and gain access. TR band placed on right radial. left radial was prepped with chloroprep then draped in the usual sterile fashion. ulnar access on the left side. wire will not go through. wire and needle out. Lidocaine 1% infiltrated to the right brachial. Arterial access obtained. A 5 cambodian TIG catheter in over wire. Multiple views taken of right coronary artery. Catheter redirected to the LCA. Catheter removed over the exchange wire. A 5 cambodian JL5 catheter in over wire. Multiple views taken of left coronary artery. Catheter out. flushing sheath to remain patency. Sheath(s) sutured into position with 2-0 silk and sterile 4x4's and Op-site applied over the site. No oozing or signs and symptoms of hematoma noted. Arterial sheath flushed and connected to tranducer and pressure bag with heparinized saline. Post Procedure: Pulses reassessed and unchanged. PERRLA. 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 No VTE prophylaxis required. Total IV fluids: 270 mL. Contrast type used: Omnipaque 300 mgI/mL, 500 mL bottle. Contrast Material : Omnipaque 98 ml. A Suture was successful obtaining hemostatsis at the Right Brachial artery insertion site. Post-op diagnosis: moderate LAD and Diag stenosis. Medication's Wasted: Heparin = 1000 units. Medication's Wasted: Lidocaine 1% = 13 mL. Medication's Wasted: Nitro = 49.8 mg. Medication's Wasted: Other = versed 1 mg. Medication's Wasted: Other = fentanyl 50 mg. Complications: none. Estimated blood loss: 5mL-10mL. Procedure completed. Patient transferred by wheelchair to 1st floor. Vital chart was stopped. Access Site Site: Right Brachial artery Sheath Size: 6 Fr Hemostasis Method: Suture Hemostasis Success: Successful Procedure Medications Start: 2:09 PM Stop: 2:09 PM Medication: Versed Amount: 1 mg Route: I.V. Start: 2:09 PM Stop: 2:09 PM Medication: Fentanyl Amount: 25 mcg Route: I.V. Start: 2:15 PM Stop: 2:15 PM Medication: Versed Amount: 1 mg Route: I.V. Start: 2:18 PM Stop: 2:18 PM Medication: Nitrogylcerin Amount: 200 mcg Route: I.A. Start: 2:21 PM Stop: 2:21 PM Medication: 0.9% Saline Amount: 250 ml Route: I.V. bolus Start: 2:36 PM Stop: 2:36 PM Medication: Nitrogylcerin Amount: 100 mcg Route: I.A. Start: 3:01 PM Stop: 3:01 PM Medication: Versed Amount: 1 mg Route: I.V. Start: 3:14 PM Stop: 3:14 PM Medication: Heparin Amount: 3000 units Route: I.V. I, the attending physician, have reviewed and verified all procedure medications. Yes, all medications given per verbal order History/Risk Factors Hypertension: Yes Dyslipidemia: Yes Tobacco Use: Never Report Signatures Interventional Workflow Finalized by Eduard Crawford MD on 12/23/2020 02:45 PM Diagnostic Workflow Finalized by Dr Jaylyn Chase MD FAC on 12/19/2020 06:51 PM
--- NOTE | 2020-12-14 14:09 | P.HPUD_ITS ---
Surgery/Procedure H&P Update DATE OF PROCEDURE: December 14, 2020 DATE H&P PERFORMED: 12/12/20 H&P UPDATE INFORMATION: I have reviewed H&P completed within last 30 days, I have examined patient prior to procedure and No changes to prior documentation PREOP DIAGNOSIS: DCM/CHF/AFIB/Abnormal MPI PLANNED PROCEDURE: [facility] with coronary angio PATIENT REASSESSED PRIOR TO SEDATION, WITH NO CHANGE NOTED: Yes PHYSICAL EXAM: alert, clear to auscultation bilaterally and regular rate & rhythm AIRWAY EVAL/ANESTHESIA PLAN: normal airway, see other exam findings, ASA III, Monitored Anesthesia, Local Anesthesia, Risks, benefits & alternatives of sedation and/or procedure discussed and Patient agrees to continue as planned
--- NOTE | 2020-12-14 14:30 | USCV_ITS ---
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 Apparently the radial artery was found to be patent Dr Jaylyn Chase MD [facility] (Electronically Signed) Final Date: 14 December 2020 18:13 S
--- NOTE | 2020-12-14 15:02 | PM.PN ---
Subjective Subjective: Interval history: Patient is feeling better. The blood pressure stays in the normal range. Patient got some medical records from [facility] and also from the [facility]. Patient had a left heart catheterization in [address] More. He was found to have a high-grade lesion in the small diagonal branch of the left and descending artery. It was decided to treat medically at that point. He did have a significant stenosis in the other arteries. The angiogram was performed to the right radial artery. In 2019, he had a angiogram through the right brachial artery to evaluate the cerebral artery aneurysm. Apparently femoral angiogram was attempted but because of the extreme tortuosity of the aorta, the catheter could not reach the cranial vessels. Medications: Reviewed: Yes Medication Review Details: Current Medications Acetaminophen (Acetaminophen 500 Mg Tablet) 1,000 mg PO QID PRN PRN Reason: Pain Hydrocodone Bitart/Acetaminophen (Hydrocodone-Acetaminophen 10-325 Mg Tablet) 1 tab PO Q8H PRN PRN Reason: MODERATE PAIN Last Admin: 12/13/20 13:12 Dose: 1 tab Documented by: Albuterol/Ipratropium (Ipratropium-Albuterol 3 Ml Neb) 3 ml INHALATION Q4H PRN PRN Reason: SHORTNESS OF BREATH Last Admin: 12/13/20 20:56 Dose: 3 ml Documented by: Amiodarone HCl (Amiodarone 200 Mg Tablet) 400 mg PO Q8H [facility] Last Admin: 12/14/20 12:03 Dose: 400 mg Documented by: Atorvastatin Calcium (Atorvastatin 40 Mg Tablet) 80 mg PO DAILY@0600 [facility] Last Admin: 12/14/20 05:16 Dose: 80 mg Documented by: Dextrose (Dextrose 50% Syringe 50 Ml) 25 ml IVP ONCE PRN; Protocol PRN Reason: hypoglycemia protocol Dextrose (Dextrose 50% Syringe 50 Ml) 50 ml IVP PRN PRN; Protocol PRN Reason: hypoglycemia protocol Enoxaparin Sodium (Enoxaparin 40 Mg/0.4 Ml Syringe) 40 mg SUBCUT Q24H [facility] Last Admin: 12/13/20 17:07 Dose: 40 mg Documented by: Furosemide (Furosemide 10 Mg/Ml Sdv 4ml) 40 mg IVP Q24H [facility] Last Admin: 12/13/20 20:39 Dose: Not Given Documented by: Glucagon (Glucagon 1 Mg/Ml Inj 1 Ml) 1 mg IM ONCE PRN; Protocol PRN Reason: Adult Acute Hypoglycemia Prot. Dextrose (D5w) 500 mls @ 100 mls/hr IV ONCE PRN; Protocol PRN Reason: Adult Acute Hypoglycemia Prot Sodium Chloride (Sodium Chloride 0.9%) 1,000 mls @ 50 mls/hr IV .Q20H ONE Stop: 12/15/20 07:59 Last Admin: 12/14/20 12:03 Dose: 50 mls/hr Documented by: Insulin Aspart (Insulin Aspart 100 Unit/1 Ml) 0 unit SUBCUT TIDWM [facility]; Protocol Last Admin: 12/14/20 12:00 Dose: Not Given Documented by: Levothyroxine Sodium (Levothyroxine 137 Mcg Tablet) 137 mcg PO DAILY@04 [facility] Last Admin: 12/14/20 03:55 Dose: 137 mcg Documented by: Metoprolol Tartrate (Metoprolol Tartrate 25 Mg Tablet) 25 mg PO BID@0900,2100 [facility] Last Admin: 12/14/20 09:46 Dose: 25 mg Documented by: Non-Formulary Medication (Modafinil) 200 mg PO DAILY@06 [facility] Last Admin: 12/14/20 05:17 Dose: Not Given Documented by: Ondansetron HCl (Ondansetron 2 Mg/Ml Sdv 2 Ml) 4 mg IVP Q6H PRN PRN Reason: NAUSEA AND VOMITING Ondansetron HCl (Ondansetron 2 Mg/Ml Sdv 2 Ml) 4 mg IVP Q2M PRN PRN Reason: NAUSEA Pantoprazole Sodium (Pantoprazole Dr 40 Mg Tablet) 40 mg PO BID@06,18 [facility] Last Admin: 12/14/20 05:17 Dose: 40 mg Documented by: Potassium Chloride (Potassium Chloride Er 20 Meq Tablet) 20 meq PO DAILY [facility] Last Admin: 12/14/20 08:26 Dose: 20 meq Documented by: Sacubitril/Valsartan (Sacubitril/Valsartan 24-26 Mg Tablet) 1 each PO BID [facility] Last Admin: 12/14/20 09:46 Dose: 1 each Documented by: Senna (Sennosides 8.6 Mg Tablet) 17.2 mg PO BEDTIME [facility] Last Admin: 12/13/20 20:40 Dose: 17.2 mg Documented by: Spironolactone (Spironolactone 25 Mg Tablet) 25 mg PO DAILY [facility] Last Admin: 12/14/20 09:46 Dose: 25 mg Documented by: Tamsulosin HCl (Tamsulosin 0.4 Mg Capsule) 0.4 mg PO BID@ [facility] Last Admin: 12/14/20 05:17 Dose: 0.4 mg Documented by: Tiotropium [place] (Tiotropium 18 Mcg Mdi) 18 mcg INHALATION DAILY.RESPIRATORY [facility] Last Admin: 12/14/20 07:34 Dose: 1 puff Documented by: Vitamin D (Cholecalciferol (Vitamin D3) 1,000 Unit Tablet) 2,000 unit PO DAILY@06 [facility] Last Admin: 12/14/20 05:16 Dose: 2,000 unit Documented by: Vitals/I&O/Wt Last Vital Signs Temp 97.6 F 12/14/20 11:29 Pulse 97 12/14/20 11:29 Resp 12 12/14/20 11:29 BP 106/72 12/14/20 11:29 Pulse Ox 96 12/14/20 11:29 12/14/20 12/14/20 12/14/20 06:59 14:59 22:59 Intake Total 50 / 50 Output Total 375 / 3090 Balance -375 / -2370.25 50 / 50 Weight last 48 hrs Weight 280 lb 8 oz Physical Exam Narrative: EXAM NARRATIVE: GENERAL: The patient is alert and oriented times three. Mild respiratory distress. Obese HEENT: No significant pallor, icterus or lymphadenopathy. Oral cavity: There are no mucous membrane lesions. NECK: Trachea appears to be central. No masses noted. No JVD or thyromegaly appreciated. No carotid bruit. RESPIRATORY: Chest is symmetrical. No intercostals muscle retraction or any accessory muscle activation. There is no chest wall tenderness. Breath sounds are heard bilaterally. No rales or rhonchi heard. No evidence of any consolidation. Breath sounds are diminished in the bases BREASTS: Deferred. HEART: The PMI could not be palpated . No other palpable precordial events. S1 and S2 are normal. No S3 or S4 heard. No pericardial rub or any click heard. ABDOMEN: No vessel pulsations or distention. No tenderness. No organomegaly appreciated. No abdominal bruit. Bowel sounds are normally heard. : Deferred. RECTAL: Deferred. LYMPHATIC: No lymphadenopathy noted in the neck . EXTREMITIES: No edema or cyanosis. No clubbing. The pulses are symmetrical bilaterally. Normal volume and amplitude MUSCULOSKELETAL: No acute joint deformities or swelling SKIN: There are no significant rashes or ecchymosis NEUROPSYCHIATRIC: The patient is alert and oriented x3. Appears to be in a good mood. The higher functions are grossly within normal limits. Patient has some intention tremor. Data : 12/15/20 05:10 12/15/20 05:10 A&P Assessment and plan (1) Abnormal cardiovascular stress test: The implications of the myocardial perfusion imaging findings are discussed with the patient in detail. In view of the significant drop in the LV ejection fraction and the abnormal perfusion imaging, in order to further evaluate his coronary status, he requires a cardiac catheterization. The risk of bleeding, hematoma, vascular injury, myocardial infarction, CVA, renal failure and other concomitant complications were explained in detail. Patient understood this well and consented to proceed. We are planning to do the cardiac catheterization this afternoon. We will attempt the right radial artery first. If that is not feasible, then may consider brachial artery approach. Status: Acute (2) Acute on chronic systolic heart failure: Patient has significant drop in the LV systolic function. Ejection fraction was 50% in August 2020. Today he is 34% by echocardiogram. Possibility of underlying coronary ischemia causing this is a strong consideration. Based on the cardiac catheterization data, further management decisions will be made. The dose of the Lasix will be cut back. Apparently he has single-vessel disease by angiogram in 2011. In view of the severe LV systolic dysfunction, I may start him on Entresto and spironolactone. His kidney function will be closely monitored. Status: Acute (3) Atrial fibrillation with rapid ventricular response: Patient may be given digoxin 0.25 mg every 6 hours x3 followed by 0.125 mg daily. Patient was started on a small dose of beta metoprolol, which may be continued. Status: Acute (4) Chronic respiratory failure with hypoxia: Respiratory status seems to be stable. May continue on the current measures. Status: Acute (5) Spontaneous hematoma of lower leg: Because the patient is a history of recurrent spontaneous bleeding, it was decided to hold off on any anticoagulation. Patient may be given baby aspirin 2 tabs p.o. daily. Since he is not able to take oral anticoagulation, atrial appendage occlusion with a watchman device may be appropriate. I will be discussing this with an rn clinical quality. 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
[2020-12-14 16:39] LABS: Glucose Point of Care 94 mg/dL (70-110)
[2020-12-14 17:48] LABS: Partial Thromboplastin Time 42.4 SECONDS (23.9-36.7)
--- NOTE | 2020-12-14 19:35 | PC.NURSE ---
1810 Sheath removed from right brachial pressure help for 25min no hematoma formation pressure dressing placed for added support
--- NOTE | 2020-12-14 19:38 | PC.NURSE ---
1904 bedside report off to Stuart HEATH
[2020-12-14] MEDS: FUROsemide 10 mg/mL SDV 4mL 40 MG IVP (20:39)
[2020-12-14] MEDS: sennosides 8.6 mg Tablet 17.2 MG PO (20:39)
[2020-12-14 20:40] LABS: Glucose Point of Care 102 mg/dL (70-110)
[2020-12-14] MEDS: digoxin 125 mcg Tablet PO (20:47)
[2020-12-15] VITALS (56 sets, daily range): BP systolic 82–112; BP diastolic 60–73; PULSE 58–107; RESP 12–26; TEMP 36.2–37.3; O2SAT 94–99
[2020-12-15 05:56] LABS: Basophils % 0.8 %; Eosinophils # 0.2 10^3/uL (0.0-0.8); Eosinophils % 3.3 %; Hematocrit 45.4 % (42.0-52.0); Hemoglobin 14.5 g/dL (11.7-16.6); Lymphocytes # 1.1 10^3/uL (0.8-4.8); Lymphocytes % 21.2 %; Mean Corpuscular HGB Conc 31.9 g/dL (30.0-36.0); Mean Corpuscular Hemoglobin 29.6 pg (28.0-34.0); Mean Corpuscular Volume 92.7 fL (80-94); Mean Platelet Volume 11.1 fL (7.4-10.4); Monocytes # 0.5 10^3/uL (0.2-0.9); Monocytes % 9.4 %; Neutrophils # 3.32 10^3/uL (1.8-7.7); Neutrophils % 65.1 %; Nucleated Red Blood Cells % 0 %; Platelet Count 176 10^3/cmm (130-400); Red Cell Distribution Width 13.4 % (12.1-15.1); White Blood Count 5.1 10^3/uL (4.0-10.0)
[2020-12-15 06:18] LABS: Alanine Aminotransferase 23 U/L (0-41); Albumin Level 3.1 g/dL (3.5-5.2); Alkaline Phosphatase 68 IU/L (40-130); Aspartate Amino Transferase 34 U/L (0-40); Blood Urea Nitrogen 11 mg/dL (8-23); Calcium 8.2 mg/dL (8.5-10.5); Carbon Dioxide 25 mmol/L (22-29); Chloride 100 mmol/L (98-107); Globulin 2.3 g/dL (1.3-4.6); Glucose 94 mg/dL (65-115); Magnesium 1.8 mg/dL (1.7-2.3); Osmolality Calculated 279 mOsm/kg (285-295); Sodium 135 mmol/L (136-145); Total Bilirubin 1.2 mg/dL (0.15-1.2); Total Protein 5.4 g/dL (6.6-8.7)
[2020-12-15] MEDS: atorvastatin 40 mg Tablet 80 MG PO (06:29)
[2020-12-15] MEDS: cholecalciferol (vitamin D3) 1,000 unit Tablet 2000 UNIT PO (06:29)
[2020-12-15] MEDS: levothyroxine 137 mcg Tablet PO (06:30)
[2020-12-15] MEDS: amiodarone 200 mg Tablet 400 MG PO (06:30)
[2020-12-15] MEDS: tamsulosin 0.4 mg Capsule PO ×2 (06:30→18:36)
[2020-12-15] MEDS: pantoprazole DR 40 mg Tablet PO ×2 (06:33→18:36)
[2020-12-15 06:41] LABS: Glucose Point of Care 89 mg/dL (70-110)
--- NOTE | 2020-12-15 08:15 | P.PN_ITS ---
Subjective Subjective: Interval history: The patient is feeling okay. No chest pain or shortness of breath. Vital signs remained stable. Heart rate is mostly in the 80s and 90s. No fever or chills. The kidney function is back to normal today. She underwent cardiac catheterization yesterday. He was found to have around 60 to 70% diffuse disease in the first diagonal branch of the left anterior descending artery. He had around 40 to 50% lesions in the distal left and descending artery. Minimal intimal irregularities in the RCA and the left circumflex artery. Based on this angiographic findings, it was decided to treat him medically. Medications: Reviewed: Yes Medication Review Details: Current Medications Acetaminophen (Acetaminophen 500 Mg Tablet) 1,000 mg PO QID PRN PRN Reason: Pain Acetaminophen (Acetaminophen 325 Mg Tablet) 650 mg PO Q6H PRN PRN Reason: MILD PAIN Hydrocodone Bitart/Acetaminophen (Hydrocodone-Acetaminophen 10-325 Mg Tablet) 1 tab PO Q8H PRN PRN Reason: MODERATE PAIN Last Admin: 12/13/20 13:12 Dose: 1 tab Documented by: Al Hydrox/Mg Hydrox/Simethicone (Xwne-Oiq-Hyedgyzgs-Ilda 30 Ml Udc) 30 ml PO Q15M PRN PRN Reason: INDIGESTION Albuterol/Ipratropium (Ipratropium-Albuterol 3 Ml Neb) 3 ml INHALATION Q4H PRN PRN Reason: SHORTNESS OF BREATH Last Admin: 12/13/20 20:56 Dose: 3 ml Documented by: Alprazolam (Alprazolam 0.25 Mg Tablet) 0.25 mg PO TID PRN PRN Reason: ANXIETY Amiodarone HCl (Amiodarone 200 Mg Tablet) 400 mg PO Q8H [facility] Last Admin: 12/15/20 06:30 Dose: 400 mg Documented by: Atorvastatin Calcium (Atorvastatin 40 Mg Tablet) 80 mg PO DAILY@0600 [facility] Last Admin: 12/15/20 06:29 Dose: 80 mg Documented by: Atropine Sulfate (Atropine 1 Mg/Ml Sdv 1 Ml) 0.5 mg IVP PRN PRN PRN Reason: Symptomatic bradycardia Dextrose (Dextrose 50% Syringe 50 Ml) 25 ml IVP ONCE PRN; Protocol PRN Reason: hypoglycemia protocol Dextrose (Dextrose 50% Syringe 50 Ml) 50 ml IVP PRN PRN; Protocol PRN Reason: hypoglycemia protocol Digoxin (Digoxin 125 Mcg Tablet) 125 mcg PO DAILY [facility] Last Admin: 12/14/20 20:47 Dose: 125 mcg Documented by: Enoxaparin Sodium (Enoxaparin 40 Mg/0.4 Ml Syringe) 40 mg SUBCUT Q24H [facility] Last Admin: 12/13/20 17:07 Dose: 40 mg Documented by: Furosemide (Furosemide 10 Mg/Ml Sdv 4ml) 40 mg IVP Q24H [facility] Last Admin: 12/14/20 20:39 Dose: 40 mg Documented by: Glucagon (Glucagon 1 Mg/Ml Inj 1 Ml) 1 mg IM ONCE PRN; Protocol PRN Reason: Adult Acute Hypoglycemia Prot. Dextrose (D5w) 500 mls @ 100 mls/hr IV ONCE PRN; Protocol PRN Reason: Adult Acute Hypoglycemia Prot Insulin Aspart (Insulin Aspart 100 Unit/1 Ml) 0 unit SUBCUT TIDWM [facility]; Protocol Last Admin: 12/14/20 17:11 Dose: Not Given Documented by: Levothyroxine Sodium (Levothyroxine 137 Mcg Tablet) 137 mcg PO DAILY@04 [facility] Last Admin: 12/15/20 06:30 Dose: 137 mcg Documented by: Magnesium Hydroxide (Magnesium Hydroxide 30 Ml Udc) 30 ml PO DAILY PRN PRN Reason: CONSTIPATION Metoprolol Tartrate (Metoprolol Tartrate 25 Mg Tablet) 25 mg PO BID@0900,2100 [facility] Last Admin: 12/14/20 20:38 Dose: 25 mg Documented by: Naloxone HCl (Naloxone 0.4 Mg/Ml Sdv) 0.1 mg IVP Q2M PRN PRN Reason: RESPIRATORY RATE < 8/MIN Nitroglycerin (Nitroglycerin 0.4 Mg Sublingual Tablet) 0.4 mg SUBLINGUAL Q5M PRN PRN Reason: CHEST PAIN Non-Formulary Medication (Modafinil) 200 mg PO DAILY@06 [facility] Last Admin: 12/15/20 06:34 Dose: Not Given Documented by: Ondansetron HCl (Ondansetron 2 Mg/Ml Sdv 2 Ml) 4 mg IVP Q6H PRN PRN Reason: NAUSEA AND VOMITING Ondansetron HCl (Ondansetron 2 Mg/Ml Sdv 2 Ml) 4 mg IVP Q2M PRN PRN Reason: NAUSEA Pantoprazole Sodium (Pantoprazole Dr 40 Mg Tablet) 40 mg PO BID@06,18 [facility] Last Admin: 12/15/20 06:33 Dose: 40 mg Documented by: Potassium Chloride (Potassium Chloride Er 20 Meq Tablet) 20 meq PO DAILY [facility] Last Admin: 12/14/20 08:26 Dose: 20 meq Documented by: Sacubitril/Valsartan (Sacubitril/Valsartan 24-26 Mg Tablet) 1 each PO BID [facility] Last Admin: 12/14/20 18:00 Dose: 1 each Documented by: Senna (Sennosides 8.6 Mg Tablet) 17.2 mg PO BEDTIME [facility] Last Admin: 12/14/20 20:39 Dose: 17.2 mg Documented by: Spironolactone (Spironolactone 25 Mg Tablet) 25 mg PO DAILY [facility] Last Admin: 12/14/20 09:46 Dose: 25 mg Documented by: Tamsulosin HCl (Tamsulosin 0.4 Mg Capsule) 0.4 mg PO BID@ [facility] Last Admin: 12/15/20 06:30 Dose: 0.4 mg Documented by: Temazepam (Temazepam 15 Mg Capsule) 15 mg PO BEDTIME PRN PRN Reason: INSOMNIA Tiotropium [place] (Tiotropium 18 Mcg Mdi) 18 mcg INHALATION DAILY.RESPIRATORY [facility] Last Admin: 12/14/20 07:34 Dose: 1 puff Documented by: Vitamin D (Cholecalciferol (Vitamin D3) 1,000 Unit Tablet) 2,000 unit PO DAILY@06 [facility] Last Admin: 12/15/20 06:29 Dose: 2,000 unit Documented by: Vitals/I&O/Wt Last Vital Signs Temp 99.2 F 12/15/20 07:25 Pulse 85 12/15/20 07:25 Resp 21 H 12/15/20 07:25 BP 112/72 12/15/20 07:25 Pulse Ox 97 12/15/20 07:25 12/14/20 12/15/20 12/15/20 22:59 06:59 14:59 Intake Total 720 / 770 856.667 / 1626.667 Output Total 1800 / 1800 1000 / 2800 Balance -1080 / -1030 -143.333 / -1173.333 Physical Exam 2 Narrative: EXAM NARRATIVE: GENERAL: The patient is alert and oriented times three. Mild respiratory distress. Obese HEENT: No significant pallor, icterus or lymphadenopathy. Oral cavity: There are no mucous membrane lesions. NECK: Trachea appears to be central. No masses noted. No JVD or thyromegaly appreciated. No carotid bruit. RESPIRATORY: Chest is symmetrical. No intercostals muscle retraction or any accessory muscle activation. There is no chest wall tenderness. Breath sounds are heard bilaterally. No rales or rhonchi heard. No evidence of any consolidation. Breath sounds are diminished in the bases BREASTS: Deferred. HEART: The PMI could not be palpated . No other palpable precordial events. S1 and S2 are normal. No S3 or S4 heard. No pericardial rub or any click heard. ABDOMEN: No vessel pulsations or distention. No tenderness. No organomegaly appreciated. No abdominal bruit. Bowel sounds are normally heard. : Deferred. RECTAL: Deferred. LYMPHATIC: No lymphadenopathy noted in the neck . EXTREMITIES: No edema or cyanosis. No clubbing. The pulses are symmetrical bilaterally. Normal volume and amplitude. The arteriotomy sites have no hematoma or bleeding. MUSCULOSKELETAL: No acute joint deformities or swelling SKIN: There are no significant rashes or ecchymosis NEUROPSYCHIATRIC: The patient is alert and oriented x3. Appears to be in a good mood. The higher functions are grossly within normal limits. Patient has some intention tremor. Const: COMMON NORMALS: alert Resp: COMMON NORMALS: clear to auscultation bilaterally AUSCULTATION: clear to auscultation bilaterally Neuro: SENSORIUM/ORIENTATION: Yes alert Data : 12/15/20 05:10 12/15/20 05:10 Other Labs: Laboratory Last Values WBC 5.1 10^3/uL (4.0-10.0) 12/15/20 05:10 RBC 4.90 10^6/uL (4.1-5.3) 12/15/20 05:10 Hgb 14.5 g/dL (11.7-16.6) 12/15/20 05:10 Hct 45.4 % (42.0-52.0) 12/15/20 05:10 MCV 92.7 fL (80-94) 12/15/20 05:10 MCH 29.6 pg (28.0-34.0) 12/15/20 05:10 MCHC 31.9 g/dL (30.0-36.0) 12/15/20 05:10 RDW 13.4 % (12.1-15.1) 12/15/20 05:10 Plt Count 176 10^3/cmm (130-400) 12/15/20 05:10 MPV 11.1 fL (7.4-10.4) H 12/15/20 05:10 Neut % (Auto) 65.1 % 12/15/20 05:10 Lymph % (Auto) 21.2 % 12/15/20 05:10 [place] % (Auto) 9.4 % 12/15/20 05:10 Eos % (Auto) 3.3 % 12/15/20 05:10 Baso % (Auto) 0.8 % 12/15/20 05:10 Neut # (Auto) 3.32 10^3/uL (1.8-7.7) 12/15/20 05:10 Lymph # (Auto) 1.1 10^3/uL (0.8-4.8) 12/15/20 05:10 [place] # (Auto) 0.5 10^3/uL (0.2-0.9) 12/15/20 05:10 Eos # (Auto) 0.2 10^3/uL (0.0-0.8) 12/15/20 05:10 Baso # (Auto) 0.0 10^3/uL (0.0-0.1) 12/15/20 05:10 Nucleated RBC % (auto) 0 % 12/15/20 05:10 Nucleated RBCs # 0.0 /100WBC 12/15/20 05:10 APTT 42.4 SECONDS (23.9-36.7) H 12/14/20 17:05 Sodium 135 mmol/L (136-145) L 12/15/20 05:10 Potassium 4.0 mmol/L (3.5-5.1) 12/15/20 05:10 Chloride 100 mmol/L (98-107) 12/15/20 05:10 Carbon Dioxide 25 mmol/L (22-29) 12/15/20 05:10 Anion Gap 14.0 (5-19) 12/15/20 05:10 BUN 11 mg/dL (8-23) 12/15/20 05:10 Creatinine 1.1 mg/dL (0.7-1.2) 12/15/20 05:10 GFR Calculation Not Reportable 12/15/20 05:10 Glucose 94 mg/dL (65-115) 12/15/20 05:10 POC Glucose 89 mg/dL (70-110) 12/15/20 06:31 Calculated Osmolality 279 mOsm/kg (285-295) L 12/15/20 05:10 Calcium 8.2 mg/dL (8.5-10.5) L 12/15/20 05:10 Magnesium 1.8 mg/dL (1.7-2.3) 12/15/20 05:10 Total Bilirubin 1.2 mg/dL (0.15-1.2) 12/15/20 05:10 AST 34 U/L (0-40) 12/15/20 05:10 ALT 23 U/L (0-41) 12/15/20 05:10 Alkaline Phosphatase 68 IU/L (40-130) 12/15/20 05:10 Creatine Kinase 132 U/L (39-308) 12/12/20 10:50 Troponin T Baseline 21 ng/L (0-15) H 12/12/20 10:50 Troponin T 120 Minute 22.44 ng/L (0-15) H 12/12/20 12:50 Delta Troponin T 1.44 ABS# (0-10) 12/12/20 12:50 Troponin T Hi Sens 6Hr 19.40 ng/L (0-15) H 12/12/20 16:55 Troponin T Hi Sens 6Hr Delta -1.60 ng/L (0-12) L 12/12/20 16:55 NT-Pro-B Natriuret Pep 5439 pg/mL (0-450) H 12/14/20 04:09 Total Protein 5.4 g/dL (6.6-8.7) L 12/15/20 05:10 Albumin 3.1 g/dL (3.5-5.2) L 12/15/20 05:10 Globulin 2.3 g/dL (1.3-4.6) 12/15/20 05:10 Urine Color Dark yellow (Yellow) 12/12/20 12:33 Urine Appearance Clear (CLEAR) 12/12/20 12:33 Urine pH 5 (5-7) 12/12/20 12:33 Ur Specific [place] 1.030 (1.005-1.030) 12/12/20 12:33 Urine Protein 2+ (Negative) H 12/12/20 12:33 Urine Glucose (UA) Norm (Normal) 12/12/20 12:33 Urine Ketones Negative (Negative) 12/12/20 12:33 Urine Blood 2+ (Negative) H 12/12/20 12:33 Urine Nitrate Negative (Negative) 12/12/20 12:33 Urine Bilirubin 1+ (Negative) H 12/12/20 12:33 Urine Urobilinogen 1 mg/dL (Negative) H 12/12/20 12:33 Ur Leukocyte Esterase Negative (Negative) 12/12/20 12:33 Urine RBC 0-4 /hpf (0-2) H 12/12/20 12:33 Urine WBC 0-4 /hpf (0-5) H 12/12/20 12:33 Ur Squamous Epith Cells 0-4 /hpf (0-5) H 12/12/20 12:33 Amorphous Sediment 4+ /hpf 12/12/20 12:33 Urine Bacteria 1+ /hpf (NONE) H 12/12/20 12:33 A&P Assessment and plan (1) Acute on chronic systolic heart failure: At this point, we will try to optimize his medical treatment. The diuretics may be changed to Lasix 40 mg p.o. daily with the spironolactone 25 mg p.o. daily. Continue on Entresto twice daily. I also may go ahead and do a MUGA scan next week to decide whether he needs a LifeVest, while we are trying to optimize his medications. Echocardiographic which is very suboptimal in quality. Status: Acute (2) Atherosclerotic heart disease of [place] coronary artery without angina pectoris: Continue on the aspirin, statin, beta-shiva along with your medications. Status: Acute (3) Atrial fibrillation with rapid ventricular response: Patient may be continued on digoxin 0.25 mg p.o. daily with metoprolol 25 mg p.o. twice daily. I may discontinue the amiodarone at this point. Status: Acute (4) Chronic respiratory failure with hypoxia: Respiratory status seems to be stable. May continue on the current measures. Status: Acute (5) Spontaneous hematoma of lower leg: Because the patient is a history of recurrent spontaneous bleeding, it was decided to hold off on any anticoagulation. Patient may be given baby aspirin 2 tabs p.o. daily. Since he is not able to take oral anticoagulation, atrial appendage occlusion with a Watchman device may be appropriate. Discussed that this was Dr. Bentley at [facility] in [place]. She is going to see him as an outpatient to discuss about the procedure. Status: Acute Additional A&P Information His other problems are Narcolepsy Obstructive sleep apnea Degenerative joint disease Hypothyroidism Cerebral artery aneurysm Morbid obesity Recent COVID-19 infection If the patient continues to remain stable, may be discharged home today. D ecision regarding LifeVest to be decided after the MUGA scan patient may be scheduled as an outpatient Patient may continue the following medications at discharge Entresto 1 tablet p.o. twice daily Spironolactone 25 mg p.o. daily Lasix 40 mg p.o. daily Metoprolol 25 mg p.o. twice daily Digoxin 0.125 mg p.o. daily Baby aspirin 2 tablets p.o. daily Potassium chloride 10 mEq p.o. daily Attestations Medical Necessity Statement*: Possible discharge home today Coding Level of Care Code Acute Lift Driver for Chg Fwd Exam Expanded Problem Focused Diagnoses Acute on chronic systolic heart failure I50.23 Atherosclerotic heart disease of [place] coronary artery without angina pectoris I25.10 Atrial fibrillation with rapid ventricular response I48.91 Chronic respiratory failure with hypoxia J96.11 Spontaneous hematoma of lower leg R23.3
[2020-12-15] MEDS: metoprolol tartrate 25 mg Tablet PO ×2 (08:39→21:15)
[2020-12-15] MEDS: spironolactone 25 mg Tablet PO (08:39)
[2020-12-15] MEDS: sacubitril/valsartan 24-26 mg Tablet 1 EACH PO ×2 (08:39→18:36)
[2020-12-15] MEDS: potassium chloride ER 20 mEq Tablet PO (08:39)
[2020-12-15] MEDS: digoxin 125 mcg Tablet PO (08:39)
--- NOTE | 2020-12-15 09:13 | DCPLANNER ---
Pg 2 of IM updated and reviewed with pt. No questions, copy provided.
--- NOTE | 2020-12-15 10:57 | PM.PN ---
Subjective Subjective: Interval history: Patient denies any complaints this morning. He was found to have coronary disease but not enough for intervention. He denies shortness of breath or chest pain this morning. Vitals/I&O/Wt Last Vital Signs Temp 99.2 F 12/15/20 07:25 Pulse 88 12/15/20 09:49 Resp 20 H 12/15/20 09:48 BP 112/72 12/15/20 07:25 Pulse Ox 96 12/15/20 09:48 12/14/20 12/15/20 12/15/20 22:59 06:59 14:59 Intake Total 720 / 770 856.667 / 1626.667 Output Total 1800 / 1800 1000 / 2800 Balance -1080 / -1030 -143.333 / -1173.333 Physical Exam Narrative: EXAM NARRATIVE: Lungs are clear. Heart is irregularly irregular. No lower extremity edema. Data : 12/15/20 05:10 12/15/20 05:10 A&P Assessment and plan (1) Acute on chronic diastolic (congestive) heart failure: Status: Acute (2) Atrial fibrillation with rapid ventricular response: Status: Acute (3) SHER (obstructive sleep apnea): Status: Acute (4) Chronic respiratory failure with hypoxia: Status: Acute (5) Spontaneous hemorrhage: Status: Acute (6) Hypothyroidism: Status: Acute (7) Diabetes mellitus: Status: Acute Additional A&P Information PLAN: Continue current monitoring and treatment as recommended by Dr. Chase to further adjust patient's heart function. Attestations Medical Necessity Statement*: Patient with CHF exacerbation requires close inpatient monitoring, treatment and evaluation. Coding Level of Care Code Acute Electronic Publishing Specialist for Matt [employer] Diagnoses Acute on chronic diastolic (congestive) heart failure I50.33 Atrial fibrillation with rapid ventricular response I48.91 SHER (obstructive sleep apnea) G47.33 Chronic respiratory failure with hypoxia J96.11 Spontaneous hemorrhage R58 Hypothyroidism E03.9 Diabetes mellitus E11.9
--- NOTE | 2020-12-15 11:27 | PC.NURSE ---
Pt lying in bed resting. Pt ask if he could sit up 30 degree. Pt was instructed to lay flat and educated on the importance to lay flat after a cardiac cath. Pt verbalized understanding.
[2020-12-15 11:46] LABS: Glucose Point of Care 91 mg/dL (70-110)
[2020-12-15] MEDS: sodium chloride 0.9% 250 ML IV (11:49)
[2020-12-15 16:36] LABS: Glucose Point of Care 98 mg/dL (70-110)
[2020-12-15] MEDS: enoxaparin 40 mg/0.4 mL Syringe SUBCUT (18:36)
--- NOTE | 2020-12-15 18:37 | PC.NURSE ---
other delay other pt care
--- NOTE | 2020-12-15 19:12 | PC.NURSE ---
Bedside report given. Patient concerns about BP and medications addressed. Patient sitting in chair watching television. Patient denies dizziness or weakness at this time. Will continue to monitor and assist as needed following CPOC
[2020-12-15 20:14] LABS: Glucose Point of Care 112 mg/dL (70-110)
[2020-12-15] MEDS: sennosides 8.6 mg Tablet 17.2 MG PO (21:15)
[2020-12-16] VITALS (28 sets, daily range): BP systolic 87–124; BP diastolic 66–78; PULSE 72–94; RESP 12–28; TEMP 36.3–37.1; O2SAT 93–96
[2020-12-16] MEDS: levothyroxine 137 mcg Tablet PO (04:47)
[2020-12-16 05:07] LABS: Basophils # 0.1 10^3/uL (0.0-0.1); Eosinophils # 0.2 10^3/uL (0.0-0.8); Eosinophils % 4.2 %; Hematocrit 45.8 % (42.0-52.0); Hemoglobin 14.4 g/dL (11.7-16.6); Lymphocytes # 1.1 10^3/uL (0.8-4.8); Lymphocytes % 23.8 %; Mean Corpuscular HGB Conc 31.4 g/dL (30.0-36.0); Mean Corpuscular Hemoglobin 29.8 pg (28.0-34.0); Mean Corpuscular Volume 94.6 fL (80-94); Mean Platelet Volume 10.9 fL (7.4-10.4); Monocytes # 0.5 10^3/uL (0.2-0.9); Monocytes % 9.4 %; Neutrophils # 2.91 10^3/uL (1.8-7.7); Nucleated Red Blood Cells % 0 %; Platelet Count 179 10^3/cmm (130-400); Red Blood Count 4.84 10^6/uL (4.1-5.3); Red Cell Distribution Width 13.4 % (12.1-15.1); White Blood Count 4.8 10^3/uL (4.0-10.0)
[2020-12-16 05:40] LABS: Alanine Aminotransferase 22 U/L (0-41); Albumin Level 3.2 g/dL (3.5-5.2); Alkaline Phosphatase 69 IU/L (40-130); Anion Gap 11.1 (5-19); Aspartate Amino Transferase 33 U/L (0-40); Blood Urea Nitrogen 14 mg/dL (8-23); Calcium 8.2 mg/dL (8.5-10.5); Carbon Dioxide 27 mmol/L (22-29); Chloride 101 mmol/L (98-107); Globulin 2.2 g/dL (1.3-4.6); Glucose 85 mg/dL (65-115); Magnesium 1.8 mg/dL (1.7-2.3); Osmolality Calculated 280 mOsm/kg (285-295); Potassium 4.1 mmol/L (3.5-5.1); Sodium 135 mmol/L (136-145); Total Bilirubin 1.2 mg/dL (0.15-1.2); Total Protein 5.4 g/dL (6.6-8.7)
[2020-12-16] MEDS: atorvastatin 40 mg Tablet 80 MG PO (06:05)
[2020-12-16] MEDS: pantoprazole DR 40 mg Tablet PO (06:05)
[2020-12-16] MEDS: tamsulosin 0.4 mg Capsule PO (06:05)
[2020-12-16] MEDS: cholecalciferol (vitamin D3) 1,000 unit Tablet 2000 UNIT PO (06:05)
[2020-12-16 07:27] LABS: Glucose Point of Care 84 mg/dL (70-110)
[2020-12-16] MEDS: metoprolol tartrate 25 mg Tablet PO (08:14)
[2020-12-16] MEDS: potassium chloride ER 20 mEq Tablet PO (08:14)
[2020-12-16] MEDS: sacubitril/valsartan 24-26 mg Tablet 1 EACH PO (08:14)
[2020-12-16] MEDS: digoxin 125 mcg Tablet PO (08:15)
[2020-12-16] MEDS: FUROsemide 40 mg Tablet PO (08:15)
[2020-12-16] MEDS: spironolactone 25 mg Tablet PO (08:15)
[2020-12-16 11:45] LABS: Glucose Point of Care 102 mg/dL (70-110)
--- NOTE | 2020-12-16 12:35 | PM.PN ---
Subjective Subjective: Interval history: Dr. Silveira is doing well this morning. Denies shortness of breath or chest pain. Reports that blood pressure is slightly on the lower side after initiation of Entresto. Vitals/I&O/Wt Last Vital Signs Temp 97.4 F L 12/16/20 11:09 Pulse 85 12/16/20 11:09 Resp 16 12/16/20 11:09 BP 97/66 12/16/20 11:09 Pulse Ox 93 12/16/20 11:09 12/15/20 12/16/20 12/16/20 21:59 06:59 14:59 Intake Total Output Total 120 / 120 Balance -120 / -120 Physical Exam Narrative: EXAM NARRATIVE: Lungs are clear. Heart is irregularly irregular. No lower extremity edema. Data : 12/16/20 04:34 12/16/20 04:34 A&P Assessment and plan (1) Acute on chronic diastolic (congestive) heart failure: Status: Acute (2) Atrial fibrillation with rapid ventricular response: Status: Acute (3) SHER (obstructive sleep apnea): Status: Acute (4) Chronic respiratory failure with hypoxia: Status: Acute (5) Spontaneous hemorrhage: Status: Acute (6) Hypothyroidism: Status: Acute (7) Diabetes mellitus: Status: Acute Additional A&P Information PLAN: Continue further monitoring and treatment as per Dr. Chase. Plan to perform MUGA scan next week. Attestations Medical Necessity Statement*: Patient with acute CHF and A. fib with rapid ventricle response requires close inpatient monitoring and treatment including medication adjustments. Coding Level of Care Code Acute Public Address Systems Mechanic for [facility] Fwd Diagnoses Acute on chronic diastolic (congestive) heart failure I50.33 Atrial fibrillation with rapid ventricular response I48.91 SHER (obstructive sleep apnea) G47.33 Chronic respiratory failure with hypoxia J96.11 Spontaneous hemorrhage R58 Hypothyroidism E03.9 Diabetes mellitus E11.9
[2020-12-16] MEDS: HYDROcodone-acetaminophen 10-325 mg Tablet 1 TAB PO (14:22)
[2020-12-16] MEDS: acetaminophen 325 mg Tablet 650 MG PO (15:09)
--- NOTE | 2020-12-16 15:32 | PM.DCS ---
Discharge Providers Date of Admission: 12/12/20 12:36 Date of Discharge: December 16, 2020 Attending Provider at Admission: Dimitri Valerio MD Attending Provider at Discharge: Dimitri Valerio MD Primary Care Provider: Emil Oliveira DO Diagnoses at Discharge Discharge Diagnosis (1) Acute on chronic diastolic (congestive) heart failure: Status: Acute (2) Atrial fibrillation with rapid ventricular response: Status: Acute (3) SHER (obstructive sleep apnea): Status: Acute (4) Chronic respiratory failure with hypoxia: Status: Acute (5) Spontaneous hemorrhage: Status: Acute Permanent problem details: This patient blood into the right calf muscle and had hematuria with Xarelto (6) Hypothyroidism: Status: Acute (7) Diabetes mellitus: Status: Acute Reason for Visit Reason for Visit: SOB, SENT FROM HEART CARE Hospital Course Hospital Course Patient presented with acute systolic heart failure and atrial fibrillation with rapid ventricular response. Patient was further evaluated with coronary angiogram showing nonobstructive coronary artery disease. Medications were adjusted and patient's heart rate was well controlled with digoxin and metoprolol. Initially Entresto was initiated by patient's blood pressure was on the lower side therefore Dr. Chase recommends to continue only on losartan 25 mg daily in addition to metoprolol and digoxin for rate control. Dr. Chase was okay for patient to be dismissed home today. MUGA scan was ordered early next week and patient will follow up with Dr. Chase in 2 weeks. Patient was told to keep blood pressure and heart rate log 3 times daily to present to primary care physician or Dr. Chase for medication adjustment. Patient does not want to consider therapeutic anticoagulation with his recent history of soft tissue hematoma. He understands risk for stroke. Since patient is not anticoagulated Dr. Chase discussed case with Dr. Bentley in [place] for patient to be evaluated for watchman device. Physical Exam Narrative: EXAM NARRATIVE: Exam as per my note earlier today. Discharge Data Data Completed and Pending: Completed Studies During Hospitalization Category Date Time Status CT angio chest PE protcl [id number] Stat Cat Scan 12/12/20 13:[address] MIBI [Sestamibi Stress Test Reque st Exams 12/13/20 06:28 Draft ] Routine XR chest 1V brittny ble [id number] Urgent Exams 12/12/20 10:31 Completed NM linda perf SPECT r/s* [id number] Routin e Nuc Med 12/13/20 07:18 Completed CV echo limited [id number] Routine Ultrasound 12/13/20 19:18 Completed CV guide vascular access [id number] Stat Ultrasound 12/14/20 14:30 Completed Pending at discharge Category Date Time Status [employer] request for service Routin e Exams 12/14/20 13:47 Taken NM card bld pool r or s*[id number] Routi ne Nuc Med 12/15/20 09:22 Ordered Labs from last 24 hours 12/16/20 12/16/20 12/16/20 11:17 07:15 04:34 WBC RBC Hgb Hct MCV MCH MCHC RDW Plt Count MPV Neut % (Auto) Lymph % (Auto) [place] % (Auto) Eos % (Auto) Baso % (Auto) Neut # (Auto) Lymph # (Auto) [place] # (Auto) Eos # (Auto) Baso # (Auto) Nucleated RBC % (a uto) Nucleated RBCs # Sodium 135 L Potassium 4.1 Chloride 101 Carbon Dioxide 27 Anion Gap 11.1 BUN 14 Creatinine 1.2 GFR Calculation Not Reportable Glucose 85 POC Glucose 102 84 Calculated Osmolal ity 280 L Calcium 8.2 L Magnesium 1.8 Total Bilirubin 1.2 AST 33 ALT 22 Alkaline Phosphata se 69 Total Protein 5.4 L Albumin 3.2 L Globulin 2.2 12/16/20 12/15/20 12/15/20 04:34 20:06 16:30 WBC 4.8 RBC 4.84 Hgb 14.4 Hct 45.8 MCV 94.6 H MCH 29.8 MCHC 31.4 RDW 13.4 Plt Count 179 MPV 10.9 H Neut % (Auto) 61.0 Lymph % (Auto) 23.8 [place] % (Auto) 9.4 Eos % (Auto) 4.2 Baso % (Auto) 1.0 Neut # (Auto) 2.91 Lymph # (Auto) 1.1 [place] # (Auto) 0.5 Eos # (Auto) 0.2 Baso # (Auto) 0.1 Nucleated RBC % (a uto) 0 Nucleated RBCs # 0.0 Sodium Potassium Chloride Carbon Dioxide Anion Gap BUN Creatinine GFR Calculation Glucose POC Glucose 112 H 98 Calculated Osmolal ity Calcium Magnesium Total Bilirubin AST ALT Alkaline Phosphata se Total Protein Albumin Globulin Vitals: Last Vital Signs Temp 97.4 F L 12/16/20 15:05 Pulse 80 12/16/20 15:05 Resp 22 H 12/16/20 15:05 BP 111/74 12/16/20 15:05 Pulse Ox 94 12/16/20 15:05 Discharge Plan Discharge Patient Disposition: Home Condition: Stable Prescriptions: New sennosides [Senna Lax] 8.6 mg Tablet 17.2 mg PO BEDTIME Qty: 30 RF: 0 spironolactone 25 mg Tablet 25 mg PO DAILY Qty: 30 RF: 0 digoxin 125 mcg (0.125 mg) Tablet 125 mcg PO DAILY Qty: 30 RF: 0 furosemide 40 mg Tablet 40 mg PO DAILY@0800 Qty: 30 RF: 0 potassium chloride [Klor-Con M20] 20 mEq Tablet,Er Particles/Crystals 20 meq PO DAILY Qty: 30 RF: 0 metoprolol tartrate 25 mg Tablet 25 mg PO BID@0900,2100 Qty: 60 RF: 0 losartan 25 mg tablet 25 mg PO DAILY Qty: 30 RF: 0 Continued Spiriva with HandiHaler 18 mcg capsule, w/inhalation device 1 cap inhalation DAILY Qty: 30 RF: 3 albuterol sulfate 2.5 mg /3 mL (0.083 %) solution for nebulization 2.5 mg continuous nebulization QID PRN (Reason: shortness of breath or wheezing) RF: 0 acetaminophen [Tylenol Extra Strength] 500 mg tablet 1,000 mg PO QID PRN (Reason: Pain) RF: 0 levothyroxine [Synthroid] 137 mcg Tablet 137 mcg PO DAILY@04 RF: 0 modafinil 200 mg Tablet 200 mg PO DAILY@06 RF: 0 pantoprazole 40 mg Tablet,Delayed Release (Dr/Ec) 40 mg PO BID@ RF: 0 cholecalciferol (vitamin D3) [Vitamin D3] 50 mcg (2,000 unit) Capsule 2,000 unit PO DAILY@06 RF: 0 Ozempic 1 mg/dose (2 mg/1.5 mL) Pen Injector 1 mg SUBCUT Q7D RF: 0 tamsulosin 0.4 mg capsule 0.4 mg PO BID@ RF: 0 hydrocodone-acetaminophen 10-325 mg Tablet 1 tab PO Q8H PRN (Reason: Pain) RF: 0 rosuvastatin 40 mg tablet 40 mg PO DAILY@0600 RF: 0 Discontinued furosemide 40 mg tablet 40 mg PO DAILY PRN (Reason: Edema) RF: 0 lisinopril 20 mg Tablet 20 mg PO DAILY RF: 0 metoprolol tartrate 50 mg tablet 50 mg PO BID RF: 0 potassium chloride 8 mEq capsule, extended release 8 meq PO DAILY PRN (Reason: unknown) RF: 0 Discharge Orders: Discharge Order (Routine); Ordered 12/16/20 Ordered By: Dimitri Valerio Referrals: Jaylyn Chase MD [Physician] - 2 weeks Emil Oliveira DO [Primary Care Provider] - 4-7 days Samanta Bentley MD [Referring] - (Earliest possible) Discharge Diet: Advance as tolerated Discharge Activity: Increase activity as tolerated Activity Restrictions/Additional Instructions: MUGA scan next week Please call your doctor or present to emergency department if your condition worsens or you develop diarrhea, lightheadedness, fatigue or see blood in your stool or black stool. Please keep blood pressure and heart rate log 3 times daily to present to primary care physician or Dr. Chase next visit for medication adjustment. Discharge Attestations Time Spent in Discharge Care*: less than 30 min Quality Metrics Clinical Quality Measures During this hospital stay, did patient experience: None Coding Level of Care Code Acute Chg FW DC note Diagnoses Acute on chronic diastolic (congestive) heart failure I50.33 Atrial fibrillation with rapid ventricular response I48.91 SHER (obstructive sleep apnea) G47.33 Chronic respiratory failure with hypoxia J96.11 Spontaneous hemorrhage R58 Hypothyroidism E03.9 Diabetes mellitus E11.9
--- NOTE | 2020-12-16 16:14 | PC.NURSE ---
Spiriva inhaler sent home with patient.
[2020-12-16 16:47] LABS: Glucose Point of Care 103 mg/dL (70-110)
== END 2020-12-16 16:45 | disposition home or self-care (01) | DRG 287 ==
LOC: ER 11:34 → CSU 12:54
PROVIDERS: Internal Medicine; Physician Assistant; Admitting Provider Internal Medicine; Emergency Provider Family Medicine; PCP Emergency Medicine Emergency Medical Services; Visit Provider Internal Medicine
DX: I11.0 Hypertensive heart disease with heart failure (principal); I48.20 Chronic atrial fibrillation, unspecified; J96.11 Chronic respiratory failure with hypoxia; D68.32 Hemorrhagic disorder due to extrinsic circulating anticoagulants; Z68.41 Body mass index [BMI] 40.0-44.9, adult; I50.33 Acute on chronic diastolic (congestive) heart failure; I25.10 Atherosclerotic heart disease of native coronary artery without angina pectoris; I67.1 Cerebral aneurysm, nonruptured; N40.0 Benign prostatic hyperplasia without lower urinary tract symptoms; E78.5 Hyperlipidemia, unspecified; E03.9 Hypothyroidism, unspecified; G47.419 Narcolepsy without cataplexy; I73.9 Peripheral vascular disease, unspecified; Z77.22 Contact with and (suspected) exposure to environmental tobacco smoke (acute) (chronic); G47.33 Obstructive sleep apnea (adult) (pediatric); R31.9 Hematuria, unspecified; T45.515A Adverse effect of anticoagulants, initial encounter; M62.89 Other specified disorders of muscle; Z86.16 Personal history of COVID-19; G89.29 Other chronic pain; M54.9 Dorsalgia, unspecified; M25.559 Pain in unspecified hip; Z79.891 Long term (current) use of opiate analgesic; Z79.51 Long term (current) use of inhaled steroids; E66.01 Morbid (severe) obesity due to excess calories; R94.39 Abnormal result of other cardiovascular function study
CPT/HCPCS: 36415; 36416; 71045; 71275; 76937; 76998; 78452; 80053; 81001; 82550; 82962; 83735; 83880; 84484; 85025; 85730; 90471; 90686; 93005; 93017; 93308; 93454; 94640; 96365; 96366; 96372; 96375; 97110; 97161; 99285; A9500; C1769; C1887; C1894; J1160; J1644; J1650; J1815; J1940; J2250; J2785; J3010; J3475; J3490; J7030; J7050; Q0163; Q9967

== ENCOUNTER 2020-12-25 09:26 | Outpatient (CLI) | payer MEDICARE, OTHER, SELFPAY ==
--- NOTE | 2020-12-25 09:44 | NMCV_ITS ---
NM card bld pool r or s*[id number] Lupillo Silveira Age: 75 Gender: M : 1945 Exam Date: 12/25/2020 09:44 Ordering Phys: Jaylyn Chase MD ([email or web address]) Technologist: SANDRA Landa Exam Location: [facility] Indications: CARDIOMYOPATHY Camera Used: [employer] Protocol: three view gated blood pool study Technical Image Quality: Good Dose: Admin Site: Administered By: [id number] Tagged RBCs: 22.4 IV - Right SANDRA Landa Antecubital PYP: EJECTION FRACTION: Automatic LV EF: 40 Rest RV EF: Manual LV EF: FINDINGS Diffuse hypokinesia of the left ventricle CONCLUSIONS LV action fraction estimated to be 40%. Wall motion analysis revealed diffuse hypokinesia of the left ventricle Dr Jaylyn Chase MD [facility] (Electronically Signed) Final Date: 25 December 2020 13:22 S
== END 2020-12-25 09:27 | disposition home or self-care (01) ==
LOC: RAD 09:35
PROVIDERS: PCP Emergency Medicine Emergency Medical Services; Visit Provider Internal Medicine Cardiovascular Disease
DX: I42.9 Cardiomyopathy, unspecified (principal)
CPT/HCPCS: 78472; A9560

== ENCOUNTER → 2020-12-27 16:28 | Outpatient (BNVA) | payer MEDICARE, OTHER, SELFPAY | PROVIDERS: PCP Emergency Medicine Emergency Medical Services; Visit Provider Internal Medicine Pulmonary Disease | DX: Z20.822 Contact with and (suspected) exposure to COVID-19 (principal) | CPT/HCPCS: 87635 ==

== ENCOUNTER 2021-01-02 11:20 | Outpatient (CLI) | payer MEDICARE, OTHER, SELFPAY ==
--- NOTE | 2021-01-02 13:32 | PFTS_ITS ---
Date of Study:01/02/21 Date of Dictation: 01/03/2021 MECHANICS: Postbronchodilator forced vital capacity (FVC) is normal. Postbronchodilator forced expiratory volume in one second (FEV1) is mildly reduced 106%. FEV1/FVC is reduced. There is significant response to bronchodilators. FLOW VOLUME LOOP: . LUNG VOLUMES: Total lung capacity (TLC) is increased. Residual volume (RV) is increased suggestive of severe air trapping. DIFFUSING CAPACITY FOR CARBON MONOXIDE: Normal . INTERPRETATION: Spirometry consistent with mild obstructive ventilatory defect. Post BD FEV1 106% there is significant response to bronchodilators. Lung volumes reveal severe air trapping RV to 44% and TLC 152%. Normal gas transfer. Overall PFTs are consistent with reversible obstructive ventilatory defect likely asthma. Please correlate clinically. MTDD
== END 2021-01-02 11:21 | disposition home or self-care (01) ==
LOC: RT 11:23
PROVIDERS: PCP Emergency Medicine Emergency Medical Services; Visit Provider Internal Medicine Pulmonary Disease
DX: R06.02 Shortness of breath (principal)
CPT/HCPCS: 94060; 94726; 94729; J7611

== ENCOUNTER 2021-01-03 06:00 | Outpatient (RCR) | payer MEDICARE, SELFPAY | END 2021-02-01 23:59 | disposition home or self-care (01) | LOC: SPT 06:00 | PROVIDERS: PCP Emergency Medicine Emergency Medical Services; Referring Provider Internal Medicine Pulmonary Disease; Visit Provider Internal Medicine Pulmonary Disease | DX: R53.81 Other malaise (principal) | CPT/HCPCS: 97032; 97110; 97112; G0283 ==

== ENCOUNTER 2021-01-07 09:51 | Outpatient (CLI) | payer OTHER, SELFPAY ==
--- NOTE | 2021-01-07 10:00 | CT_ITS ---
WS: [id number] CT ABDOMEN AND PELVIS NONCONTRAST HISTORY: LEFT ABDOMINAL MASS TECHNIQUE: Imaging performed through the abdomen and pelvis. Coronal and sagittal reformats are submi tted. All CT scans at [facility] use at least one of these dose optimization techniques: automated exposure control; mA and/or kV adjustment per patient size (includes targeted exams where d ose is matched to clinical indication); or iterative reconstruction. DLP: 1173.96 mGycm COMPARISON: 05/08/2020 Lower thorax: Flattening of the diaphragms and emphysematous changes at the lung bases. Heart size is top normal. Small hiatal hernia. Liver: Numerous scattered areas of low attenuation throughout the liver cannot be further characteriz ed without IV contrast. These were described on the prior study with no increase in size. Most typica l for cysts. Gallbladder: Well distended gallbladder. Suspicious for small calcification in the gallbladder. Pancreas: Mild atrophy. Spleen: Normal. Adrenal glands: Normal. No mass. Right kidney: Normal size kidney. Exophytic 6 mm nodule from the posterior mid kidney is similar in s ize to the prior study. No obstruction. Left kidney: Several cysts in the LEFT kidney. The largest in the upper pole measures 4.8 x 5.3 cm wi thout significant increase in size. Smaller exophytic cyst from the mid kidney. Aorta: Mild atherosclerosis abdominal aorta with no aneurysm. No free fluid, intraperitoneal air or significant lymphadenopathy. GI tract: The appendix is not currently visualized. No acute inflammatory changes. No GI tract obstru ction. Minimal diverticulosis. No acute inflammation. Abdominal wall: Fat-containing umbilical hernia. In the LEFT abdominal wall subcutaneous fat is an ar ea of fat necrosis measuring 7.6 x 5.0 cm. This area of fat necrosis has increased in size since 2019. Pelvis: There is 2 bladder calcifications with a largest measuring 5 mm in the dependent portion of t he bladder. No obstruction of the RIGHT ureter. Penile implant is noted. No free fluid in the pelvis. Osseous structures: 10 mm anterolisthesis of L5. Severe degenerative disc disease at L5-S1. Mild RIGH T curvature thoracic spine. Mild narrowing of the hip joints. CT/CT abdomen pelvis wo con [id number] IMPRESSION: 1. Area of fat necrosis within the LEFT abdominal subcutaneous soft tissue has increased in size since the prior study now measuring 7.6 x 5.0 cm. 2. Fat-containing umbilical hernia. 3. LEFT renal cysts. 4. Hepatic cysts are unchanged. 5. Calcifications in the urinary bladder are nonobstructing.
[2021-01-07] MEDS: iohexol 300 mg/mL 50 mL Btl PO (10:41)
== END 2021-01-07 09:52 | disposition home or self-care (01) ==
LOC: RADWPI 10:01
PROVIDERS: PCP Emergency Medicine Emergency Medical Services; Visit Provider Emergency Medicine Emergency Medical Services
DX: R19.00 Intra-abdominal and pelvic swelling, mass and lump, unspecified site (principal); K65.4 Sclerosing mesenteritis; K42.9 Umbilical hernia without obstruction or gangrene; Q61.02 Congenital multiple renal cysts; K76.89 Other specified diseases of liver; N32.89 Other specified disorders of bladder
CPT/HCPCS: 74176; Q9967

== ENCOUNTER 2021-01-09 14:57 | Outpatient (CLI) | payer OTHER, SELFPAY ==
--- NOTE | 2021-01-09 15:03 | MR_ITS ---
WS: [id number] MRI LUMBAR SPINE NONCONTRAST TECHNIQUE: Sagittal T1, T2 and STIR imaging. Axial T1 and T2 imaging. CLINICAL INFORMATION: LOW BACK PAIN COMPARISON: None. FINDINGS: Mild lumbar curve. No acute compression. 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 Disc space narrowing worse L5-S1. L1-L2: Mild disc bulging with osteophytic ridging. Slight impingement on the left subarticular recess and traversing left L2 nerve root. Mild central canal stenosis. Mild facet arthropathy. Foramen are patent. L2-L3: Mild annular bulging. Moderate facet arthropathy. Spinal canal and foramen are patent. L3-L4: Mild annular bulging. Slight impingement on the right subarticular recess and traversing right L4 nerve root. Moderate central canal stenosis. Mild right and no significant left foraminal narrow ing. Moderate facet arthropathy. L4-L5: Mild annular bulging. Slight effacement of the ventral thecal sac. Moderate facet arthropathy with small facet effusions. Mild right and no significant left foraminal narrowing. L5-S1: Grade 1 anterolisthesis with chronic spondylolysis. Osteophytic ridging with moderate facet ar thropathy. Moderate bilateral foraminal narrowing. 3.1 cm partially visualized left renal cyst. Smaller right renal cyst. Mild thoracic curve. Anterior wedging in the mid thoracic spine. MR/MR lumbar spine wo con* [id number] IMPRESSION: 1. 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 Moderate bilat eral bony foraminal narrowing at this level. 2. Mild central canal stenosis L1-2 with slight impingement on the left subart icular recess and traversing left L2 nerve root. 3. Moderate central canal stenosis L3-4 impinges the traversing right L4 nerve root in the subarticular recess. Mild right foraminal narrowing. Moderate face t arthropathy at this level. 4. Mild annular bulging L4-5 with mild right L4-5 foraminal narrowing. Moderat e facet arthropathy with small bilateral facet effusions.
== END 2021-01-09 14:58 | disposition home or self-care (01) ==
LOC: RADSHAW 15:00
PROVIDERS: PCP Emergency Medicine Emergency Medical Services; Visit Provider Emergency Medicine Emergency Medical Services
DX: M48.061 Spinal stenosis, lumbar region without neurogenic claudication (principal); M51.26 Other intervertebral disc displacement, lumbar region; M43.07 Spondylolysis, lumbosacral region; M47.816 Spondylosis without myelopathy or radiculopathy, lumbar region
CPT/HCPCS: 72148

== ENCOUNTER 2021-02-11 11:25 | Outpatient (CLI) | payer OTHER, SELFPAY ==
--- NOTE | 2021-02-11 11:32 | XR_ITS ---
WS: [id number] LUMBAR SPINE FLEXION AND EXTENSION TECHNIQUE: 3 views of the lumbar spine: Lateral neutral, flexion, and extension views. CLINICAL INFORMATION: SPONDYLOLISTHESIS LUMBOSACRAL REGION COMPARISON: None. FINDINGS: Advanced osteopenia. Spondylitic changes. Disc space narrowing throughout the lumbar spine. Grade 1-2 anterolisthesis L5 on S1. Disc space narrowing worse L5-S1 and L1-2. Grade 1 anterolisthesis L5 on S 1 measures 16 mm in neutral. This increases on flexion to 17 mm and decreases on extension to 14 mm. Spondylolysis L5-S1. XR/XR lumbar spine f/e only [id number] IMPRESSION: Mild flexion-extension instability L5-S1 described above
== END 2021-02-11 11:26 | disposition home or self-care (01) ==
LOC: RADWPI 11:28
PROVIDERS: PCP Emergency Medicine Emergency Medical Services; Visit Provider Nurse Practitioner
DX: M43.17 Spondylolisthesis, lumbosacral region (principal); M53.2X7 Spinal instabilities, lumbosacral region
CPT/HCPCS: 72120

== ENCOUNTER 2021-03-15 09:52 | Outpatient (CLI) | payer OTHER, MEDICARE, SELFPAY ==
--- NOTE | 2021-03-15 10:30 | FL_ITS ---
WS: [id number] MODIFIED BARIUM SWALLOW HISTORY: R13.10 - Dysphagia, unspecified FLUOROSCOPY TIME: 1.5 minutes. Modified barium swallow was performed by the speech pathologist. Fluoroscopy was provided with the pa tient in a lateral projection. Multiple food consistencies were provided. No aspiration. A single episode of laryngeal penetration may been present with the thin liquids. Ther e is marked spillage of the barium from the vallecula especially with the thin liquids. Patient was a ble to swallow the barium tablet without difficulty. FL/FL barium swallow modifd [id number] IMPRESSION: 1. No aspiration. 2. Significant spillage of the thin liquids from the vallecula without aspirat ion. Please see speech therapist report also for recommendations.
== END 2021-03-15 09:53 | disposition home or self-care (01) ==
LOC: RAD 10:01
PROVIDERS: PCP Emergency Medicine Emergency Medical Services; Visit Provider Surgery
DX: R13.10 Dysphagia, unspecified (principal)
CPT/HCPCS: 74230; 92611

== ENCOUNTER 2021-03-22 12:51 | Outpatient (CLI) | payer OTHER, MEDICARE, SELFPAY ==
[2021-03-22 13:32] LABS: Basophils # 0.1 10^3/uL (0.0-0.1); Basophils % 0.6 %; Eosinophils # 0.2 10^3/uL (0.0-0.8); Eosinophils % 2.2 %; Hematocrit 45.3 % (42.0-52.0); Hemoglobin 14.7 g/dL (11.7-16.6); Lymphocytes # 1.5 10^3/uL (0.8-4.8); Lymphocytes % 17.8 %; Mean Corpuscular HGB Conc 32.5 g/dL (30.0-36.0); Mean Corpuscular Hemoglobin 28.9 pg (28.0-34.0); Mean Corpuscular Volume 89.2 fL (80-94); Mean Platelet Volume 9.9 fL (7.4-10.4); Monocytes # 0.6 10^3/uL (0.2-0.9); Neutrophils # 5.96 10^3/uL (1.8-7.7); Nucleated Red Blood Cells % 0 %; Platelet Count 192 10^3/cmm (130-400); Red Blood Count 5.08 10^6/uL (4.1-5.3); Red Cell Distribution Width 14.5 % (12.1-15.1); White Blood Count 8.3 10^3/uL (4.0-10.0)
[2021-03-22 13:38] LABS: INR 1.03 (0.8-1.2)
[2021-03-22 13:39] LABS: Partial Thromboplastin Time 28.4 SECONDS (23.9-36.7)
[2021-03-22 13:42] LABS: Anion Gap 12.2 (5-19); Blood Urea Nitrogen 20 mg/dL (8-23); Calcium 8.5 mg/dL (8.5-10.5); Carbon Dioxide 28 mmol/L (22-29); Chloride 100 mmol/L (98-107); Glucose 101 mg/dL (65-115); Osmolality Calculated 285 mOsm/kg (285-295); Potassium 4.2 mmol/L (3.5-5.1); Sodium 136 mmol/L (136-145)
== END 2021-03-22 12:52 | disposition home or self-care (01) ==
PROVIDERS: PCP Emergency Medicine Emergency Medical Services
DX: I49.5 Sick sinus syndrome (principal); I50.22 Chronic systolic (congestive) heart failure
CPT/HCPCS: 80048; 83735; 85025; 85610; 85730

== ENCOUNTER → 2021-12-25 09:45 | Outpatient (BNVA) | payer OTHER, MEDICARE, SELFPAY | PROVIDERS: PCP Emergency Medicine Emergency Medical Services; Visit Provider Specialist | DX: M19.042 Primary osteoarthritis, left hand (principal); M65.30 Trigger finger, unspecified finger | CPT/HCPCS: 73130 ==

== ENCOUNTER 2021-12-27 21:20 | Inpatient (IN) | payer MEDICARE, OTHER, SELFPAY ==
[2021-12-27 21:48] VITALS: BP 122/86; PULSE 74; RESP 20; TEMP 36.8; O2SAT 94; BMI 38.7
[2021-12-28] VITALS (33 sets, daily range): BP systolic 100–152; BP diastolic 66–108; PULSE 68–89; RESP 14–18; TEMP 36.3–36.8; O2SAT 90–99
--- NOTE | 2021-12-28 00:49 | CTR_ITS ---
PROCEDURE INFORMATION: Exam: CT Abdomen And Pelvis Without Contrast Exam date and time: 12/28/2021 2:19 AM Age: 76 years old Clinical indication: Constipation; Abdominal pain; Patient HX: C/O epigastric pain with no bm x 3 days. TECHNIQUE: Imaging protocol: Computed tomography of the abdomen and pelvis without contrast. Radiation optimization: All CT scans at this facility use at least one of these dose optimization techniques: automated exposure control; mA and/or kV adjustment per patient size (includes targeted exams where dose is matched to clinical indication); or iterative reconstruction. COMPARISON: CT abdomen pelvis wo con [id number] 01/07/2021 11:28 AM RADIATION DOSE METRICS: Total DLP (mGy-cm): 1839.81 FINDINGS: Lungs: Right discoid atelectasis and/or scarring. Liver: Stable hepatic cysts at least one of which measures larger than a centimeter in size. Other low-attenuation lesions in the liver are too small to characterize. Gallbladder and bile ducts: Solitary gallstone within the gallbladder. Pancreas: Normal. No ductal dilation. Spleen: Normal. No splenomegaly. Adrenal glands: Normal. No mass. Kidneys and ureters: Multiple left renal simple cysts with the largest measuring > 1.0 cm. Stomach and bowel: Unremarkable. No obstruction. No mucosal thickening. Appendix: No evidence of appendicitis. Intraperitoneal space: Unremarkable. No free air. No significant fluid collection. Vasculature: Calcification of the abdominal aorta and/or iliac arteries consistent with atherosclerotic vessel disease. Lymph nodes: Unremarkable. No enlarged lymph nodes. Urinary bladder: Unremarkable as visualized. Reproductive: Unremarkable as visualized. Bones/joints: Grade 1 anterior non-spondylitic spondylolisthesis of L5 on S1. Soft tissues: Umbilical/periumbilical hernia containing 3.4 cm section of small bowel with small bowel obstruction proximal to the hernia and completely decompressed bowel distal to the hernia. Small-bowel obstruction with dilated loops of small bowel up to 3.9 cm proximal to the incarcerated umbilical hernia. CT/CT abdomen pelvis wo con [id number] IMPRESSION: Small-bowel obstruction with dilated loops of small bowel up to 3.9 cm proximal to the incarcerated umbilical hernia. COMMENTS: Consistent with the [employer]'s Incidental Findings Committee white paper (J Am Frank Radiol 2018): Any incidental renal lesion less than 1 cm or classified as too small to characterize, or any incidental cystic renal lesion characterized as simple-appearing, is likely benign. No follow-up imaging is recommended for these lesions per consensus recommendations based on imaging criteria.
--- NOTE | 2021-12-28 00:49 | CTR_ITS ---
PROCEDURE INFORMATION: Exam: CT Head Without Contrast Exam date and time: 12/28/2021 2:15 AM Age: 76 years old Clinical indication: Pain; Patient HX: C/O headache TECHNIQUE: Imaging protocol: Computed tomography of the head without contrast. Radiation optimization: All CT scans at this facility use at least one of these dose optimization techniques: automated exposure control; mA and/or kV adjustment per patient size (includes targeted exams where dose is matched to clinical indication); or iterative reconstruction. COMPARISON: 1. CT angio headneck* [id number] 2020-11-09 09:[address] head wo con* [id number] 2018-06-06 19:29 RADIATION DOSE METRICS: Total DLP (mGy-cm): 1215.19 FINDINGS: Brain: Fusiform aneurysmal dilatation of the right MCA and moderate M2 segment stenosis. Diffuse moderate cerebral age related volume loss. Moderate patchy low attenuation in the white matter compatible with moderate chronic small vessel ischemic disease. No midline shift, mass, fluid collection, or evidence of hemorrhage. Cerebral ventricles: Ventricular enlargement proportional to volume loss. Paranasal sinuses: Visualized sinuses are unremarkable. No fluid levels. Mastoid air cells: Visualized mastoid air cells are well aerated. Vasculature: Ectatic vertebral and basilar arteries with mild atherosclerotic disease. Question right carotid terminus small aneurysm. Large left MCA bifurcation aneurysm measures 1.4 cm. 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 Bones/joints: Unremarkable. No acute fracture. Soft tissues: Unremarkable. CT/CT head wo con* [id number] IMPRESSION: 1. Question right carotid terminus small aneurysm. Fusiform aneurysmal dilatation of the right MCA and moderate M2 segment stenosis. 2. Large left MCA bifurcation aneurysm measures 1.4 cm. Recommend neurosurgical consultation. 3. 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 4. Moderate involutional changes, no acute intracranial abnormality.
[2021-12-28] MEDS: morphine 4 mg/mL SDV 1 mL IVP (01:29)
[2021-12-28] MEDS: ondansetron 2 mg/ML SDV 2 mL 4 MG IVP (01:30)
[2021-12-28] MEDS: sodium chloride 0.9% 1,000 ML 999 ML IV (01:30)
[2021-12-28 01:50] LABS: Basophils % 0.3 %; Eosinophils % 0.3 %; Hematocrit 57.5 % (42.0-52.0); Hemoglobin 19.8 g/dL (11.7-16.6); Lymphocytes # 1.7 10^3/uL (0.8-4.8); Mean Corpuscular HGB Conc 34.4 g/dL (30.0-36.0); Mean Corpuscular Volume 87.1 fl (80-94); Mean Platelet Volume 11.5 fL (7.4-10.4); Monocytes % 7.7 %; Neutrophils # 10.05 10^3/uL (1.8-7.7); Neutrophils % 78.5 %; Nucleated Red Blood Cells % 0 %; Platelet Count 261 10^3/cmm (130-400); Red Cell Distribution Width 13.1 % (12.1-15.1); White Blood Count 12.8 10^3/uL (4.0-10.0)
[2021-12-28 02:15] LABS: Lactate (Lactic Acid level) 2.2 mmol/L (0.5-2.2)
[2021-12-28 02:36] LABS: Alanine Aminotransferase 11 U/L (0-41); Albumin Level 4.7 g/dL (3.5-5.2); Alkaline Phosphatase 109 IU/L (40-130); Aspartate Amino Transferase 16 U/L (0-40); Blood Urea Nitrogen 38 mg/dL (8-23); C Reactive Protein 20.7 mg/L (0.0-4.9); Calcium 10.1 mg/dL (8.5-10.5); Carbon Dioxide 30 mmol/L (22-29); Chloride 86 mmol/L (98-107); Globulin 3.2 g/dL (1.3-4.6); Glucose 144 mg/dL (65-115); Lipase 21 U/L (13-60); Magnesium 2.6 mg/dL (1.7-2.3); Osmolality Calculated 292 mOsm/kg (285-295); Sodium 135 mmol/L (136-145); Total Bilirubin 1.7 mg/dL (0.15-1.2); Total Protein 7.9 g/dL (6.6-8.7)
--- NOTE | 2021-12-28 02:40 | PC.NURSE ---
Pt continues to desat below 90%, pt now 88% on 6L NC and sts he could benefit from a breathing treatment. RT called, orders received from Dr. Sandoval.
[2021-12-28] MEDS: ipratropium-albuterol 3 mL Neb INHALATION ×2 (02:45→08:35)
--- NOTE | 2021-12-28 05:31 | ED_ITS ---
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 He notes for the last 2 days, he is essentially vomited every couple of hours, with transient relief of his pain at that point. He denies fever. Denies change in stool. No history of abdominal surgery. MD elicited complaint: nausea, vomiting and abdominal pain Pertinent past history: anorexia Onset (ago): day(s) Description of vomiting: foul-smelling and feculent Associated nausea: Yes Associated abdominal pain: Yes Location of pain: Diffuse Radiation: diffuse Pain consistency: constant Severity: moderate Quality: cramping, stabbing and aching Relieving factors: vomiting Associated symtoms: Reports bloating, headache(s) and nausea; Denies altered mental status, change in vision, chest pain, cough, diaphoresis or fevers/chills Review of Systems Const: Denies: fever(s), chills or diaphoresis Eyes: Denies: change in vision ENMT: Denies: throat pain Card: Denies: chest pain Resp: Reports: dyspnea (Chronically); Denies: productive cough or non-productive cough GI: Reports: abdominal pain, nausea, vomiting and bloating Neuro: Reports: headache(s) PFSH ED PFSH: Medical History Atrial fibrillation status post cardioversion Benign prostatic hyperplasia Cerebral arterial aneurysm Chronic diastolic heart failure Chronic diastolic heart failure secondary to coronary artery disease Dyslipidemia Hyperlipidemia Hypertension Hypothyroidism Intermittent atrial fibrillation Narcolepsy Peripheral arterial disease Right fibular fracture Shortness of breath on exertion Spontaneous hemorrhage This patient blood into the right calf muscle and had hematuria with Xarelto Surgical History History of knee surgery S/P rotator cuff repair Family History Other CAD (coronary artery disease) Cancer Hypertension Stroke Social History Smoking and tobacco status: never smoked Second hand smoke exposure: Yes Smoking risk assessment/counseling performed?: Yes Alcohol intake: never Lives independently: Yes Household members: spouse and children Housing: House Marital status: service: Yes Current occupational status: retired Pets and animals: Yes History of recent travel: No Current gender identity: Male Physical Exam Const: EXAM LIMITATIONS: no altered mental status GENERAL APPEARANCE: cooperative and ill appearing NUTRITIONAL APPEARANCE: obese ORIENTATION/CONSCIOUSNESS: Yes awake, Yes oriented to person and Yes oriented to place HENMT: COMMON NORMALS: normocephalic and Normal external nose present HEAD & SCALP: normocephalic FACE & SINUS: normal facial exam NOSE: Normal external nose present Eye: COMMON NORMALS: Equal, round and reactive pupils present and EOMs intact bilaterally PUPIL: Yes Equal, round and reactive pupils present Resp: COMMON NORMALS: normal respiratory effort, No use of accessory muscles and clear to auscultation bilaterally AUSCULTATION: clear to auscultation bilaterally Cardio: COMMON NORMALS: regular rate, regular rhythm and Peripheral pulses 2+ throughout RATE: regular rate RHYTHM: regular rhythm PERIPHERAL PULSES: Peripheral pulses 2+ throughout GI: INSPECTION: Yes abdominal distension PALPATION: Yes Firmness to palpation present (GI), Yes Tenderness to palpation present (GI), Yes Guarding due to palpation present (GI), Yes Hepatomegaly present and Yes Splenomegaly present Extremity: NARRATIVE EXTREMITY EXAM: + tenting Neuro: SENSORIUM/ORIENTATION: Yes oriented to person and Yes oriented to place Psych: COMMON NORMALS: mental status grossly normal and cooperative Course Consultations: Consultation #1: mg Time: 05:40 Consultation #2: audrey Time: 05:40 Vital Signs: Vital signs: Vital Signs Temperature 98.3 F 12/27/21 21:48 Pulse Rate 89 12/28/21 05:23 Respiratory Rate 18 12/28/21 05:23 Blood Pressure 131/93 12/28/21 05:23 Pulse Oximetry 95 12/28/21 05:23 MDM - Nausea/Vomiting/Diarrhea Medical Decision Making 76-year-old male with an incarcerated umbilical hernia causing small bowel obstruction with small bowel loop dilation up to 3.9 cm proximal. White blood cell count is 12.8. He is hemoconcentrated with a hemoglobin of 19.8. BUN is 38, creatinine is 2.0. This is up from his baseline. He is received IV hydration. He is getting an NG tube in the ER. The belly is significantly tender, so tender that reduction in the ER not possible. Hopefully with decompression this prospect will improve. Surgery was consulted from the ER, and will see the patient. Medicine will admit. Lab Data : 12/28/21 01:35 12/28/21 02:02 Radiology Impressions Abdomen/Pelvis CT 12/28/21 00:49 IMPRESSION: Small-bowel obstruction with dilated loops of small bowel up to 3.9 cm proximal to the incarcerated umbilical hernia. COMMENTS: Consistent with the [employer]'s Incidental Findings Committee white paper (J Am Frank Radiol 2018): Any incidental renal lesion less than 1 cm or classified as too small to characterize, or any incidental cystic renal lesion characterized as simple-appearing, is likely benign. No follow-up imaging is recommended for these lesions per consensus recommendations based on imaging criteria. Head CT 12/28/21 00:49 IMPRESSION: 1. Question right carotid terminus small aneurysm. Fusiform aneurysmal dilatation of the right MCA and moderate M2 segment stenosis. 2. Large left MCA bifurcation aneurysm measures 1.4 cm. Recommend neurosurgical consultation. 3. 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 4. Moderate involutional changes, no acute intracranial abnormality. Laboratory Results WBC 12.8 10^3/uL (4.0-10.0) H 12/28/21 01:35 RBC 6.60 10^6/uL (4.1-5.3) H 12/28/21 01:35 Hgb 19.8 g/dL (11.7-16.6) H 12/28/21 01:35 Hct 57.5 % (42.0-52.0) H 12/28/21 01:35 MCV 87.1 fl (80-94) 12/28/21 01:35 MCH 30.0 pg (28.0-34.0) 12/28/21 01:35 MCHC 34.4 g/dL (30.0-36.0) 12/28/21 01:35 RDW 13.1 % (12.1-15.1) 12/28/21 01:35 Plt Count 261 10^3/cmm (130-400) 12/28/21 01:35 MPV 11.5 fL (7.4-10.4) H 12/28/21 01:35 Neut % (Auto) 78.5 % 12/28/21 01:35 Lymph % (Auto) 13.0 % 12/28/21 01:35 [place] % (Auto) 7.7 % 12/28/21 01:35 Eos % (Auto) 0.3 % 12/28/21 01:35 Baso % (Auto) 0.3 % 12/28/21 01:35 Neut # (Auto) 10.05 10^3/uL (1.8-7.7) H 12/28/21 01:35 Lymph # (Auto) 1.7 10^3/uL (0.8-4.8) 12/28/21 01:35 [place] # (Auto) 1.0 10^3/uL (0.2-0.9) H 12/28/21 01:35 Eos # (Auto) 0.0 10^3/uL (0.0-0.8) 12/28/21 01:35 Baso # (Auto) 0.0 10^3/uL (0.0-0.1) 12/28/21 01:35 Nucleated RBC % (auto) 0 % 12/28/21 01:35 Nucleated RBCs # 0.0 /100WBC 12/28/21 01:35 Sodium 135 mmol/L (136-145) L 12/28/21 02:02 Potassium 4.0 mmol/L (3.5-5.1) 12/28/21 02:02 Chloride 86 mmol/L (98-107) L 12/28/21 02:02 Carbon Dioxide 30 mmol/L (22-29) H 12/28/21 02:02 Anion Gap 23.0 (5-19) H 12/28/21 02:02 BUN 38 mg/dL (8-23) H 12/28/21 02:02 Creatinine 2.0 mg/dL (0.7-1.2) H 12/28/21 02:02 GFR Calculation Not Reportable 12/28/21 02:02 Glucose 144 mg/dL (65-115) H 12/28/21 02:02 Calculated Osmolality 292 mOsm/kg (285-295) 12/28/21 02:02 Lactate 2.2 mmol/L (0.5-2.2) 12/28/21 01:35 Calcium 10.1 mg/dL (8.5-10.5) 12/28/21 02:02 Phosphorus 5.0 mg/dL (2.5-4.5) H 12/28/21 02:02 Magnesium 2.6 mg/dL (1.7-2.3) H 12/28/21 02:02 Total Bilirubin 1.7 mg/dL (0.15-1.2) H 12/28/21 02:02 AST 16 U/L (0-40) 12/28/21 02:02 ALT 11 U/L (0-41) 12/28/21 02:02 Alkaline Phosphatase 109 IU/L (40-130) 12/28/21 02:02 C-Reactive Protein 20.7 mg/L (0.0-4.9) H 12/28/21 02:02 Total Protein 7.9 g/dL (6.6-8.7) 12/28/21 02:02 Albumin 4.7 g/dL (3.5-5.2) 12/28/21 02:02 Globulin 3.2 g/dL (1.3-4.6) 12/28/21 02:02 Lipase 21 U/L (13-60) 12/28/21 02:02 Discharge Plan Discharge Patient Disposition: Admitted As Inpatient Clinical Impression: Complete small bowel obstruction, BRAD (acute kidney injury) Condition: Serious Coding Level of Care Code ED Sap Data Analyst for Chg Fwd Exam Detailed
[2021-12-28] MEDS: cetacaine Spray 5 gm Can 1 SPRAY TOPICAL (05:37)
[2021-12-28] MEDS: midazolam 1 mg/mL INJ 2 mL IVP (05:37)
--- NOTE | 2021-12-28 05:48 | XRR_ITS ---
PROCEDURE INFORMATION: Exam: XR Chest Exam date and time: 12/28/2021 5:51 AM Age: 76 years old Clinical indication: Device placement; Ng tube; Prior surgery; Surgery type: Pacemaker; Patient HX: Check S/P ng placement TECHNIQUE: Imaging protocol: XR of the chest. Views: 1 view. COMPARISON: CR XR chest 1V portable [id number] 12/12/2020 11:02 AM FINDINGS: Tubes, catheters and devices: Interval placement of left pacemaker device. Enteric tube tip over the gastric fundus with the side hole over the distal esophagus. This could be advanced. Lungs: Unremarkable. No consolidation. Pleural spaces: Unremarkable. No pleural effusion. No pneumothorax. Heart/Mediastinum: Unremarkable. No cardiomegaly. Bones/joints: Moderate thoracic spondylosis. Other findings: Stable postoperative changes over the left shoulder. XR/XR chest 1V portable [id number] IMPRESSION: Enteric tube tip over the gastric fundus with the side hole over the distal esophagus. This could be advanced.
--- NOTE | 2021-12-28 08:14 | P.CONIM_ITS ---
Providers/Reason For Consult Consulting Physician/Specialty*: General Surgery Carter Rahman MD Reason for Consult*: Incarcerated umbilical hernia with resulting small bowel obstruction. Primary Care Provider: Emil Oliveira DO History of Present Illness History of Present Illness Lupillo Silveira is a 76 year old male who developed some epigastric pain 3 days ago. This was followed by the onset of nausea and vomiting. He says he has been unable to keep anything down since. His pain has persisted. He has not passed any flatus or had any bowel movements for the last 3 days. He has a known history of an umbilical hernia for several years, but he says this area seems to be a little bit more protuberant and is more uncomfortable. He came to the emergency room and a CAT scan showed an incarcerated umbilical hernia containing a loop of small bowel with resulting small bowel obstruction. A nasogastric tube was passed. The emergency room physician notified me that the hospitalist service was admitting the patient and it was requested that I see him in consultation. Review of Systems General: Reports: 10 or more systems reviewed and unremarkable except in HPI and below Const: Denies: fever(s) GI: Reports: abdominal pain, nausea and vomiting : Reports: other (Renal insufficiency) Medications/Allergies Home Medications Medication Instructions Recorded Confirmed Last Taken Type cholecalciferol (vitamin D3) 50 2,000 unit PO DAILY@06 12/11/19 12/25/21 12/12/20 History mcg (2,000 unit) capsule (Vitamin D3) levothyroxine 137 mcg tablet 137 mcg PO DAILY@04 12/11/19 12/25/21 12/12/20 History (Synthroid) modafinil 200 mg tablet 200 mg PO DAILY@12/11/19 12/25/21 12/12/20 History pantoprazole 40 mg tablet,delayed 40 mg PO BID@12/11/19 12/25/21 12/12/20 History release tamsulosin 0.4 mg capsule 0.4 mg PO BID@ cap 07/17/20 12/25/21 12/12/20 History acetaminophen 500 mg tablet 1,000 mg PO QID PRN tab 12/12/20 12/25/21 Unknown History (Tylenol Extra Strength) albuterol sulfate 2.5 mg CONTINUOUS NEBULIZATION QID 12/12/20 12/25/2112/12/21 History PRN ml furosemide 40 mg tablet 40 mg PO DAILY@0800 #30 tab 12/16/20 12/25/21 Unknown Rx potassium chloride 20 mEq 20 meq PO DAILY #30 tab 12/16/20 12/25/21 Unknown Rx tablet,extended release(part/cryst) (Klor-Con M) sennosides 8.6 mg tablet (Senna 17.2 mg PO BEDTIME #30 tab 12/16/20 12/25/21 Unknown Rx Lax) aspirin 81 mg tablet,delayed 162 mg PO DAILY tab 12/27/20 12/25/21 Unknown History release (Adult Aspirin Regimen) spironolactone 25 mg tablet 25 mg PO DAILY 30 Days #30 tab 12/27/20 12/25/21 Unknown Rx cetirizine 10 mg tablet (Zyrtec) 10 mg PO DAILY PRN #20 tab 01/09/21 12/25/21 Unknown Rx fluticasone 250 mcg-salmeterol 50 2 inh INHALATION BID #120 ea 01/09/21 12/25/21 Unknown Rx mcg/dose blistr powdr for inhalation (Advair Diskus) fluticasone propionate 50 1 spray INTRANASAL BID #100 ml 01/09/21 12/25/21 Unknown Rx mcg/actuation nasal spray,suspension (Flonase Allergy Relief) montelukast 10 mg tablet 10 mg PO DAILY #30 tab 01/09/21 12/25/21 Unknown Rx (Singulair) ropinirole 1 mg tablet 1 mg PO DAILY 12/25/21 12/25/21 Unknown History Allergies Allergy/AdvReac Type Severity Reaction Status Date / Time apixaban [From Eliquis] Allergy Severe Unknown Verified 12/25/21 09:53 ibuprofen [From Motrin] Allergy renal Verified 12/25/21 09:53 failure rivaroxaban [From Xarelto] Allergy bleeding Verified 12/25/21 09:53 tolmetin [From Tolectin] Allergy ALGY-Rash Verified 12/25/21 09:53 NSAIDS (Non-Steroidal AdvReac RENAL Verified 12/25/21 10:22 Anti-Inflamma COMPICATIONS PFSH Acute PFSH: Medical History (Updated 12/28/21 @ 08:17 by Carter Rahman MD) Atrial fibrillation status post cardioversion Benign prostatic hyperplasia Cerebral arterial aneurysm Chronic diastolic heart failure Chronic diastolic heart failure secondary to coronary artery disease Dyslipidemia Hyperlipidemia Hypertension Hypothyroidism Intermittent atrial fibrillation Narcolepsy Peripheral arterial disease Right fibular fracture Shortness of breath on exertion Spontaneous hemorrhage This patient blood into the right calf muscle and had hematuria with Xarelto Surgical History (Updated 12/28/21 @ 08:22 by Caretr Rahman MD) History of cataract surgery Bilateral History of knee surgery Bilateral arthroscopy (multiple on each side) Presence of Watchman left atrial appendage closure device S/P rotator cuff repair Left Family History Other CAD (coronary artery disease) Cancer Hypertension Stroke Social History Smoking and tobacco status: never smoked Second hand smoke exposure: Yes Smoking risk assessment/counseling performed?: Yes Alcohol intake: never Lives independently: Yes Household members: spouse and children Housing: House Marital status: service: Yes Current occupational status: retired Pets and animals: Yes History of recent travel: No Current gender identity: Male Vitals/I&O/Wt Last Vital Signs Temp 98.3 F 12/27/21 21:48 Pulse 89 12/28/21 06:02 Resp 16 12/28/21 06:02 BP 112/79 12/28/21 06:02 Pulse Ox 95 12/28/21 06:02 12/27/21 12/28/21 12/28/21 22:59 06:59 14:59 Intake Total 1000 / 1000 Balance 1000 / 1000 Weight last 48 hrs Weight 255 lb Physical Exam Narrative: The patient was encountered in his room in the emergency department. He is sitting up on his gurney with a nasogastric tube in place. He does not appear to be in any acute distress. The pupils seem equal but his eyes are bloodshot. The lungs seem clear. The heart is regular. The abdomen is obese but is soft. He has an obvious umbilical hernia with some slightly darkened discoloration of the skin. The area is significantly tender. No other masses are palpated. The extremities do not reveal any significant edema but he has some varicosities present. Neurologically the patient is grossly intact. Data : 12/28/21 01:35 12/28/21 02:02 CT Abd/Pel: Radiologist's impression: CT abdomen/pelvis 12/28/2021 IMPRESSION: Small-bowel obstruction with dilated loops of small bowel up to 3.9 cm proximal to the incarcerated umbilical hernia. A&P Assessment and plan (1) Incarcerated umbilical hernia: The patient's CAT scan was reviewed. He clearly has a loop of small bowel entering his incarcerated umbilical hernia which is resulting in a small bowel obstruction. The findings were discussed with him in some detail. 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 I have recommended repair of his hernia today. Details of the surgery and the risks involved were all discussed. He is agreeable to proceeding. Arrangements will be made for reduction and repair of the incarcerated umbilical hernia this morning. Status: Acute (2) Small bowel obstruction: Secondary to #1. 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
[2021-12-28] MEDS: dextrose 5% + KCl 20 mEq 20 MEQ/1,000 ML BAG 125 MEQ IV (09:07)
--- NOTE | 2021-12-28 10:45 | P.ANESASSM_ITS ---
Pre-Anesthetic Assessment Height/Weight: Height 1.73 m Weight 115.666 kg Temp Pulse Resp BP Pulse Ox 98.2 F 75 18 109/78 95 12/28/21 09:30 12/28/21 09:30 12/28/21 09:30 12/28/21 09:30 12/28/21 09:30 Preop Diagnosis: DCM/CHF/AFIB/Abnormal MPI Operation Date: 12/28/21 11:25 Proposed Procedures p Exploratory Laparotomy(Not Applicable) - Carter Rahman MD Familial anesthetic complications: None Was Beta Ingrid taken within 24 hours: N/A Was Clonidine taken within 24 hours: N/A Social No alcohol and No tobacco Exam alert, oriented x 3, clear to auscultation bilaterally and regular rate & rhythm Airway Submandibular: within normal limits Cervical ROM: within normal limits Mallampati: Class II Dentition: false Pulmonary Asthma and Sleep Apnea Home O2 3L at night CV/HEM Atrial Fibrillation, Arrythmia, Coronary Artery Disease, Congestive Heart Failure (EF 34%) and Hypertension Chronic Renal Insufficiency GI Gastroesophageal Reflux Disease Acute abdomen, SBO--incarcerated hernia Metabolic Diabetes Mellitus, Hyperlipidemia, Morbid Obesity and Thyroid Disease Neuropsych cerebral aneurysm Anesthetic Plan ASA status: 3E Anesthesia: General (RSI) Risk of > 500 ml blood loss (7ml/kg in children): No Medications/Allergies Home Medications Medication Instructions Recorded Confirmed Last Taken Type cholecalciferol (vitamin D3) 50 2,000 unit PO DAILY@06 12/11/19 12/25/21 12/12/20 History mcg (2,000 unit) capsule (Vitamin D3) levothyroxine 137 mcg tablet 137 mcg PO DAILY@04 12/11/19 12/25/21 12/12/20 History (Synthroid) modafinil 200 mg tablet 200 mg PO DAILY@12/11/19 12/25/21 12/12/20 History pantoprazole 40 mg tablet,delayed 40 mg PO BID@12/11/19 12/25/21 12/12/20 History release tamsulosin 0.4 mg capsule 0.4 mg PO BID@ cap 07/17/20 12/25/21 12/12/20 History acetaminophen 500 mg tablet 1,000 mg PO QID PRN tab 12/12/20 12/25/21 Unknown History (Tylenol Extra Strength) albuterol sulfate 2.5 mg CONTINUOUS NEBULIZATION QID 12/12/20 12/25/21 12/12/20 History PRN ml furosemide 40 mg tablet 40 mg PO DAILY@0800 #30 tab 12/16/20 12/25/21 Unknown Rx potassium chloride 20 mEq 20 meq PO DAILY #30 tab 12/16/20 12/25/21 Unknown Rx tablet,extended release(part/cryst) (Klor-Con M) sennosides 8.6 mg tablet (Senna 17.2 mg PO BEDTIME #30 tab 12/16/20 12/25/21 Unknown Rx Lax) aspirin 81 mg tablet,delayed 162 mg PO DAILY tab 12/27/20 12/25/21 Unknown History release (Adult Aspirin Regimen) spironolactone 25 mg tablet 25 mg PO DAILY 30 Days #30 tab 12/27/20 12/25/21 Unknown Rx cetirizine 10 mg tablet (Zyrtec) 10 mg PO DAILY PRN #20 tab 01/09/21 12/25/21 Unknown Rx fluticasone 250 mcg-salmeterol 50 2 inh INHALATION BID #120 ea 01/09/21 12/25/21 Unknown Rx mcg/dose blistr powdr for inhalation (Advair Diskus) fluticasone propionate 50 1 spray INTRANASAL BID #100 ml 01/09/21 12/25/21 Unknown Rx mcg/actuation nasal spray,suspension (Flonase Allergy Relief) montelukast 10 mg tablet 10 mg PO DAILY #30 tab 01/09/21 12/25/21 Unknown Rx (Singulair) ropinirole 1 mg tablet 1 mg PO DAILY 12/25/21 12/25/21 Unknown History Allergies Allergy/AdvReac Type Severity Reaction Status Date / Time apixaban [From Eliquis] Allergy Severe Unknown Verified 12/25/21 09:53 ibuprofen [From Motrin] Allergy renal Verified 12/25/21 09:53 failure rivaroxaban [From Xarelto] Allergy bleeding Verified 12/25/21 09:53 tolmetin [From Tolectin] Allergy ALGY-Rash Verified 12/25/21 09:53 NSAIDS (Non-Steroidal AdvReac RENAL Verified 12/25/21 10:22 Anti-Inflamma COMPICATIONS [facility] Anesthesia Medical History (Updated 03/26/22 @ 10:28 by Carter Rahman MD) Atrial fibrillation status post cardioversion Benign prostatic hyperplasia Cerebral arterial aneurysm Chronic diastolic heart failure Chronic diastolic heart failure secondary to coronary artery disease Dyslipidemia Hyperlipidemia Hypertension Hypothyroidism Intermittent atrial fibrillation Narcolepsy Peripheral arterial disease Right fibular fracture Shortness of breath on exertion Spontaneous hemorrhage This patient blood into the right calf muscle and had hematuria with Xarelto Surgical History (Updated 12/28/21 @ 10:29 by Carter Rahman MD) H/O cardiac radiofrequency ablation x 2 History of cataract surgery Bilateral History of knee surgery Bilateral arthroscopy (multiple on each side) Pacemaker Presence of Watchman left atrial appendage closure device S/P rotator cuff repair Left Family History Other CAD (coronary artery disease) Cancer Hypertension Stroke Social History Smoking and tobacco status: never smoked Second hand smoke exposure: Yes Smoking risk assessment/counseling performed?: Yes Alcohol intake: never Lives independently: Yes Household members: spouse and children Housing: House Marital status: service: Yes Current occupational status: retired Pets and animals: Yes History of recent travel: No Current gender identity: Male Data Anesthesia : 12/28/21 01:35 12/28/21 02:02 Short CBC 12/28/21 Range/Units 01:35 WBC 12.8 H (4.0-10.0) 10^3/uL Hgb 19.8 H (11.7-16.6) g/dL Hct 57.5 H (42.0-52.0) % MCV 87.1 (80-94) fl Plt Count 261 (130-400) 10^3/cmm Neut % (Auto) 78.5 % Neut # (Auto) 10.05 H (1.8-7.7) 10^3/uL BMP 12/28/21 12/28/21 01:35 02:02 Sodium Cancelled 135 L Potassium Cancelled 4.0 Chloride Cancelled 86 L Carbon Dioxide Cancelled 30 H BUN Cancelled 38 H Creatinine Cancelled 2.0 H Glucose Cancelled 144 H Calcium Cancelled 10.1 Liver Function 12/28/21 12/28/21 Range/Units 01:35 02:02 Total Bilirubin Cancelled 1.7 H AST Cancelled 16 ALT Cancelled 11 Alkaline Phosphatase Cancelled 109 Albumin Cancelled 4.7 Coags 12/28/21 12/28/21 01:35 02:02 C-Reactive Protein Cancelled 20.7 H Cardiac Studies: Echocardiogram Limited Views 12/13/20 Echocardiogram Ultrasound 08/14/20 Sestamibi Stress Test (Cardiology) 12/13/20 Cardiac Event Monitor 08/20/20
[2021-12-28] MEDS: metroNIDAZOLE IV 500 MG/100 ML PREMIX 100 MG IV (11:03)
--- NOTE | 2021-12-28 12:15 | PM.OP ---
Operative Report Date of procedure: December 28, 2021 Pre-op diagnosis: Preop Diagnosis Incarcerated umbilical hernia resulting in small bowel obstruction. Post-op diagnosis: Same. Procedure done: Reduction and repair of incarcerated umbilical hernia. Specimens removed/disposition: None sent. Surgeon: General Surgery Carter Rahman MD Anesthesia: General Complications: None. Procedure: The patient was brought to the operating room and was placed in a supine position on the operating room table. General endotracheal anesthesia was induced. The patient had already had a nasogastric tube placed preoperatively. The abdomen was prepped and draped in a sterile fashion. 0.5% bupivacaine was used for local anesthesia throughout the procedure for postoperative comfort. A curvilinear incision was carried out underneath the protruding umbilicus. Cautery was used to divide the subcutaneous tissue and the hernia sac was identified. This was carefully freed from the dependent portion of the umbilical skin and the tissue around the hernia sac was then freed all the way down to the fascia. The hernia sac was opened to facilitate dissection. Within the sac the patient had some necrotic omentum. This was easily removed and ligated with a tie of 2-0 Vicryl. There was no small bowel within the hernia after the sac had been mobilized, and it was less tense after it had been manipulated; I suspect the small bowel that was within the hernia defect was reduced in the process. The small bowel could be seen directly within the peritoneal cavity underneath the hernia defect, however. The hernia sac was excised at the fascial level. The small bowel was then grasped with a Oakman clamp and was brought out through the hernia defect. There was a segment of small bowel measuring perhaps 3 cm in length that was somewhat hemorrhagic but was clearly viable. The obstructive demarcation lines on the small bowel could be seen and contents were already moving through. The bowel was returned of the abdomen. The peritoneal cavity was locally irrigated through the hernia defect with saline. The hernia defect measured perhaps 3 cm in diameter. The defect was closed transversely using multiple inverted interrupted sutures of #1 Prolene. A [id number] suture of 0 Vicryl was used in between some of the Prolene sutures in the center and was used to bring the dependent portion of the umbilical skin back down to the fascial level. The subcutaneous tissue had been irrigated prior to bringing the umbilical skin down and was irrigated once again after. The dermis was closed using some inverted interrupted sutures of 3-0 Vicryl and the skin was approximated using a running subcuticular suture of 3-0 Vicryl. Benzoin and Steri-Strips were placed over the incision and a sterile bandage followed. The patient was taken to the recovery room in stable condition postoperatively.
--- NOTE | 2021-12-28 12:41 | ANE.PACU2 ---
Inpatient post-anesthesia follow up: Airway intact: Yes Vital signs: Temperature 98.2 F Pulse Rate 75 Respiratory Rate 18 Blood Pressure 109/78 Pulse Oximetry 95 Oxygen Delivery Me thod Nasal Cannula Oxygen Flow Rate 6 Fraction of Inspir ed Oxygen Hydration adequate: Yes Nausea and vomiting: No Pain level: 3 Mental status: Baseline
--- NOTE | 2021-12-28 13:46 | PM.HP ---
Providers/Chief Complaint Admitting Physician: Carter Rahman MD Primary Care Provider: Emil Oliveira DO Chief Complaint: Vomiting History of Present Illness Dr. Lupillo Silveira is a 76 year old male with past medical history of systolic heart failure, atrial fibrillation with RVR, post watchman device implantation, nonobstructive CAD on angiogram from 12/23, BPH, cerebral artery aneurysm not on anticoagulation presented to the ER last night with epigastric pain going on for last 3 days along with nausea and vomiting. Patient has not passed any flatus or bowel movement for last 3 days. He has a history of umbilical hernia for several years. CT abdomen pelvis was done which showed incarcerated umbilical hernia for which surgery was consulted and he is being planned to take him to the OR for incarcerated hernia. For COVID-19 with Pfizer Examination seen sitting up in bed with family at bedside, NG tube in place, in mild acute distress because of nausea and abdominal pain waiting for the OR able to give me complete history on 3 L nasal cannula saturating 94% complaining of mild difficulty in breathing. Blood work done in the ER shows white count of 12.8, hemoglobin of 19.8, platelet count of 261, sodium of 135, creatinine of 2, BUN of 38, total bilirubin of 1.7 Review of Systems General: Reports: 10 or more systems reviewed and unremarkable except in HPI and below Const: Denies: fever(s), chills, body aches, change in appetite, change in weight, malaise, night sweats, diaphoresis, change in sleep pattern, daytime sleepiness or snoring Eyes: Denies: change in vision, blurry vision, photophobia, eye discomfort or eye discharge ENMT: Denies: throat pain, enlarged tonsils, hoarseness, mouth pain, oral sores, dry mouth, tinnitus, nasal congestion or post nasal drip Card: Denies: chest pain, palpitations, irregular heart rhythm, edema, swelling of feet/ankles, lightheadedness, syncope, pre-syncope, dyspnea on exertion, orthopnea, leg pain with exertion or acrocyanosis Resp: Denies: dyspnea, productive cough, non-productive cough, wheezing, stridor, pain on inspiration, change in phlegm color, hemoptysis or chest congestion GI: Denies: abdominal pain, nausea, vomiting, hematemesis, coffee ground emesis, dysphagia, heartburn, diarrhea, constipation, bloating, GI cramping, change in bowel habits, pain on defecation, hematochezia or melena : Denies: flank pain, difficulty urinating, dysuria, urinary frequency, urinary urgency, urinary hesitancy, urinary dribbling, difficulty starting urination, change in urine stream, nocturia or hematuria Musc: Denies: neck pain, back pain, extremity pain, joint pain, joint swelling, joint redness, joint stiffness or limited range of motion Neuro: Denies: headache(s), numbness in extremities, weakness in extremities, sensory changes, lack of coordination, difficulty walking, frequent falls, dizziness, vertigo, confusion, Slurred speech present, difficulty communicating thoughts or seizure-like activity Psych: Denies: anxiety, depression, mood swings, panic attacks, hopelessness or irritability Endo: Denies: polyuria, polydipsia, tired all the time, cold intolerance, excessive sweating, flushing or heat intolerance Dalton/Lymph: Denies: easy bruising or easy bleeding All/Imm: Denies: tongue swelling, facial swelling or acute wheezing Medications/Allergies Home Medications Medication Instructions Recorded Confirmed Last Taken Type cholecalciferol (vitamin D3) 50 2,000 unit PO DAILY@12/11/19 12/25/21 12/12/20 History mcg (2,000 unit) capsule (Vitamin D3) levothyroxine 137 mcg tablet 137 mcg PO DAILY@04 12/11/19 12/25/21 12/12/20 History (Synthroid) modafinil 200 mg tablet 200 mg PO DAILY@12/11/19 12/25/21 12/12/20 History pantoprazole 40 mg tablet,delayed 40 mg PO BID@12/11/19 12/25/21 12/12/20 History release tamsulosin 0.4 mg capsule 0.4 mg PO BID@ cap 07/17/20 12/25/21 12/12/20 History acetaminophen 500 mg tablet 1,000 mg PO QID PRN tab 12/12/20 12/25/21 Unknown History (Tylenol Extra Strength) albuterol sulfate 2.5 mg CONTINUOUS NEBULIZATION QID 12/12/20 12/25/21 12/12/20 History PRN ml furosemide 40 mg tablet 40 mg PO DAILY@0800 #30 tab 12/16/20 12/25/21 Unknown Rx potassium chloride 20 mEq 20 meq PO DAILY #30 tab 12/16/20 12/25/21 Unknown Rx tablet,extended release(part/cryst) (Klor-Con M) sennosides 8.6 mg tablet (Senna 17.2 mg PO BEDTIME #30 tab 12/16/20 12/25/21 Unknown Rx Lax) aspirin 81 mg tablet,delayed 162 mg PO DAILY tab 12/27/20 12/25/21 Unknown History release (Adult Aspirin Regimen) spironolactone 25 mg tablet 25 mg PO DAILY 30 Days #30 tab 12/27/20 12/25/21 Unknown Rx cetirizine 10 mg tablet (Zyrtec) 10 mg PO DAILY PRN #20 tab 01/09/21 12/25/21 Unknown Rx fluticasone 250 mcg-salmeterol 50 2 inh INHALATION BID #120 ea 01/09/21 12/25/21 Unknown Rx mcg/dose blistr powdr for inhalation (Advair Diskus) fluticasone propionate 50 1 spray INTRANASAL BID #100 ml 01/09/21 12/25/21 Unknown Rx mcg/actuation nasal spray,suspension (Flonase Allergy Relief) montelukast 10 mg tablet 10 mg PO DAILY #30 tab 01/09/21 12/25/21 Unknown Rx (Singulair) ropinirole 1 mg tablet 1 mg PO DAILY 12/25/21 12/25/21 Unknown History Allergies Allergy/AdvReac Type Severity Reaction Status Date / Time apixaban [From Eliquis] Allergy Severe Unknown Verified 12/25/21 09:53 ibuprofen [From Motrin] Allergy renal Verified 12/25/21 09:53 failure rivaroxaban [From Xarelto] Allergy bleeding Verified 12/25/21 09:53 tolmetin [From Tolectin] Allergy ALGY-Rash Verified 12/25/21 09:53 NSAIDS (Non-Steroidal AdvReac RENAL Verified 12/25/21 10:22 Anti-Inflamma COMPICATIONS PFSH Acute PFSH: Medical History (Updated 12/28/21 @ 13:53 by Brenton Patel MD) Atrial fibrillation status post cardioversion Benign prostatic hyperplasia Cerebral arterial aneurysm Congestive heart failure Systolic and diastolic with EF of 34% on last echocardiogram from 12/23 COVID-19 Dyslipidemia H/O diabetic nephropathy History of left heart catheterization (LHC) Hyperlipidemia Hypertension Hypothyroidism Intermittent atrial fibrillation Narcolepsy SHER (obstructive sleep apnea) Peripheral arterial disease Right fibular fracture Shortness of breath on exertion Spontaneous hemorrhage This patient blood into the right calf muscle and had hematuria with Xarelto Surgical History (Updated 12/28/21 @ 10:29 by Carter Rahman MD) H/O cardiac radiofrequency ablation x 2 History of cataract surgery Bilateral History of knee surgery Bilateral arthroscopy (multiple on each side) Pacemaker Presence of Watchman left atrial appendage closure device S/P rotator cuff repair Left Family History Other CAD (coronary artery disease) Cancer Hypertension Stroke Social History Smoking and tobacco status: never smoked Second hand smoke exposure: Yes Smoking risk assessment/counseling performed?: Yes Alcohol intake: never Lives independently: Yes Household members: spouse and children Housing: House Marital status: service: Yes Current occupational status: retired Pets and animals: Yes History of recent travel: No Current gender identity: Male Vitals/I&O/Wt Last Vital Signs Temp 97.8 F 12/28/21 13:25 Pulse 74 12/28/21 13:25 Resp 18 12/28/21 13:25 BP 114/78 12/28/21 13:25 Pulse Ox 94 12/28/21 13:25 12/27/21 12/28/21 12/28/21 22:59 06:59 14:59 Intake Total 1999 Output Total 5 / Balance 1994 Weight last 48 hrs Weight 115.666 kg Physical Exam Narrative: General: AO x3, NG tube in place, on 3 L nasal cannula, acute distress because of abdominal pain and nausea HEENT: PERRLA, pupils bilaterally equal and reactive Chest: Bilateral bronchial breath sounds, occasional rhonchi present all over the lung wkon, equal good air entry bilaterally CVS: S1-S2 irregularly irregular no murmurs, no tachycardia, no gallops, no rubs Abdomen: Generalized tenderness, bowel sounds sluggish, distended Neuro: No focal deficits, no facial deformity, AO x3, power 5/5 in all limbs Data : 12/28/21 01:35 12/28/21 02:02 A&P Assessment and plan (1) Incarcerated umbilical hernia: Status: Acute (2) Complete small bowel obstruction: Status: Acute (3) BRAD (acute kidney injury): Status: Acute (4) Chronic atrial fibrillation: Status: Acute (5) Chronic respiratory failure with hypoxia: Status: Acute (6) Congestive heart failure: Status: Acute (7) Diabetes mellitus: Status: Acute Qualifiers: Diabetes mellitus type: type 2 Diabetes mellitus fdc insulin use: without intermodal dispatcher use Diabetes mellitus complication status: with hyperglycemia Qualified Code(s): E11.65 - Type 2 diabetes mellitus with hyperglycemia Plan Incarcerated umbilical hernia leading to small bowel obstruction: Surgery has been consulted. Post reduction and repair of incarcerated umbilical hernia day 0. NG tube in place. Anticoagulation, diet advancement as per surgical team. Out of bed to chair. Incentive spirometry. Follow blood cultures. Continue with Zosyn for now. Acute kidney injury: Most likely secondary dehydration from multiple episodes of vomiting secondary to bowel obstruction. IV fluids 100 cc/h while monitoring closely for fluid overload. Medical reconciliation done for nephrotoxic drugs. Repeat BMP in evening. History of congestive heart failure: Last echocardiogram from December 2020 shows an EF of 34% with diastolic heart failure. Euvolemic to dehydrated for now. IV fluid as above. Monitor for fluid overload. Daily weights Strict input output charting. Chronic atrial fibrillation: Rate controlled currently. Not on anticoagulation as an outpatient given history of cerebral aneurysm. Not on rate limiting drugs given history of bradycardia and hypotension in the past. Telemetry. Chronic hypoxic respiratory failure: Secondary to congestive heart failure, obstructive sleep apnea, COPD. Oxygen supplementation keeping saturation over 88%. DuoNeb every 6 hour, budesonide twice daily. BiPAP overnight at home setting. Incentive spirometry. Type 2 diabetes mellitus: Insulin sliding scale every 6 hours patient will be n.p.o. Check iron panel, TSH, A1c, lipid panel, vitamin B12, folate level. Continue other chronic medications. Switch levothyroxine to IV if patient is n.p.o. for more than 48 hours. Full code. Protonix OPD prophylaxis. Anticoagulation surgical team. 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
--- NOTE | 2021-12-28 14:00 | USCV_ITS ---
Lupillo Silveira Age: 76 Gender: M : 1945 Exam Date: 12/28/2021 16:11 Ordering Phys: Brenton Patel MD Technologist: Exam Location: [facility] – [place], [place] Indication: BP: 136 / 86 HR: 75 Rhythm: Sinus Technical Quality: Adequate MEASUREMENTS (Male / Female) Normal Values 2D ECHO LV Diastolic Diameter PLAX 4.5 cm 4.2 - 5.9 / 3.9 - 5.3 cm LV Systolic Diameter PLAX 3.7 cm IVS Diastolic Thickness 1.5 cm 0.6 - 1.0 / 0.6 - 0.9 cm IVS Systolic Thickness 1.6 cm LVPW Diastolic Thickness 1.2 cm 0.6 - 1.0 / 0.6 - 0.9 cm LVPW Systolic Thickness 1.3 cm LVOT Diameter 2.8 cm LV Ejection Fraction 2D Teich 39.6 % LV Ejection Fraction MOD 2C 56.0 % LV Ejection Fraction 2C AL 55.3 % LA Diameter 5.5 cm M-MODE Aortic Annulus Diameter 3.9 cm LA Ao Ratio MM 1.5 MV E Point Septal Separation 0.7 cm DOPPLER AV Peak Velocity 121.0 cm/s LVOT Peak Velocity 110.0 cm/s AV Area Cont Eq vti 5.8 cm squared AV Area Cont Eq pk 5.6 cm squared MV Area PHT 4.6 cm squared Mitral E to A Ratio 1.4 MV E' Velocity 45.5 cm/s Mitral E to MV E' Ratio 15.5 Mitral E to LV E' Lateral Ratio 13.3 Mitral E to LV E' Septal Ratio 18.5 TR Peak Velocity 192.0 cm/s TR Peak Gradient 14.7 mmHg TV Peak E Velocity 88.0 cm/s Right Atrial Pressure 3.0 mmHg Pulmonary Artery Systolic Pressu 17.7 mmHg PV Peak Velocity 114.0 cm/s FINDINGS Left Ventricle Moderately increased septal wall thickness. Mildly increased left ventricular systolic volume. Normal LV systolic function. EF 60% Right Ventricle Right ventricle not well visualized. Right Atrium The right atrium is normal in size. Left Atrium Moderately increased left atrial area. Mitral Valve Mitral valve not well visualized. There is no mitral regurgitation or stenosis. Aortic Valve Aortic valve not well visualized. There is no aortic regurgitation. Tricuspid Valve Tricuspid valve not well visualized. Pulmonic Valve Pulmonic valve not well visualized. Pericardium Normal pericardium without effusion. Aorta Aorta not well visualized. CONCLUSIONS Moderately increased septal wall thickness. Mildly increased left ventricular systolic volume. Normal LV systolic function. EF 60% Moderately increased left atrial area. Suboptimal image quality and can't visualize valves well. Van Kunz MD (Electronically Signed) Final Date: 29 December 2021 12:06 S
[2021-12-28 14:13] LABS: Procalcitonin 0.23 ng/mL (0-0.5); Thyroid Stimulating Hormone 2.36 uIU/mL (0.27-4.20)
[2021-12-28] MEDS: pantoprazole 40 mg SDV IVP (14:28)
[2021-12-28] MEDS: heparin 5,000 unit/mL INJ 1 mL 5000 UNIT SUBCUT (14:28)
[2021-12-28] MEDS: lactated ringers 1,000 ML 100 ML IV (14:34)
[2021-12-28] MEDS: piperacillin-tazobactam 3.375 GM in sodium chloride 0.9% (plus) 50 ML IV ×2 (14:52→21:59)
[2021-12-28] MEDS: ipratropium 0.5 mg/2.5 mL Neb INHALATION ×2 (16:33→20:12)
[2021-12-28] MEDS: levalbuterol 0.63 mg/3 mL Neb INHALATION ×2 (16:33→20:12)
[2021-12-28 17:05] LABS: Glucose Point of Care 100 mg/dL (70-110)
--- NOTE | 2021-12-28 18:05 | PC.NURSE ---
SHIFT SUMMARY PATIENT HAS DONE WELL, NO COMPLAINTS OF PAIN SINCE RECEIVED FROM SURGERY. VOIDED 200ML DARK SHOBHA URINE, 100ML GASTRIC DRAINAGE OUTPUT FROM NG TUBE DARK BROWN IN COLOR. DRESSING TO ABD C/D/I. PT REMAINS NPO WITH ICE CHIPS, APPROXIMATELY 160ML IN ICE CHIPS CONSUMED THIS SHIFT. PT AMBULATED WITH THIS NURSE AROUND UNIT 350 FEET. SITTING UP IN CHAIR AT THIS TIME, NO COMPLAINTS OF PAIN, CALL LIGHT WITHIN REACH VISITORS AT BEDSIDE.
--- NOTE | 2021-12-28 18:10 | PC.NURSE ---
ORDERS TO PLACE BURLESON CATHETER, PATIENT REFUSED STATING HE DIDN'T WANT ONE THIS NURSE EDUCATED PATIENT ON WHY DR. FONG WANTED BURLESON CATHETER IN PLACE, PATIENT WANTED TO TRY PEEING FIRST THIS NURSE GAVE HIM A URINAL AND PROVIDED PRIVACY. PT UNABLE TO VOID AFTER 2 ATTEMPTS, DR. FONG NOTIFIED AND ORDERS RECEIVED TO BLADDER SCAN. 66ML NOTED DURING BLADDER SCAN. THIS NURSE CONTACTED DR. FONG TO LET HIM KNOW PATIENT DID NOT WANT BURLESON CATHETER AND GAVE RESULTS OF BLADDER SCAN. NO FURTHER ORDERS RECEIVED AT THAT TIME, PATIENT VOIDED 200ML APPROXIMATELY 2 HOURS LATER.
[2021-12-28] MEDS: budesonide 0.5 mg/2 mL Neb INHALATION (20:12)
[2021-12-28 20:26] LABS: Anion Gap 17.4 (5-19); Blood Urea Nitrogen 41 mg/dL (8-23); Carbon Dioxide 29 mmol/L (22-29); Chloride 92 mmol/L (98-107); Glucose 92 mg/dL (65-115); Osmolality Calculated 290 mOsm/kg (285-295); Potassium 3.4 mmol/L (3.5-5.1); Sodium 135 mmol/L (136-145)
[2021-12-28 21:08] LABS: Glucose Point of Care 101 mg/dL (70-110)
[2021-12-29] VITALS (14 sets, daily range): BP systolic 102–115; BP diastolic 64–73; PULSE 69–92; RESP 16–20; TEMP 36.7–37; O2SAT 91–97
[2021-12-29] MEDS: lactated ringers 1,000 ML 100 ML IV (00:32)
[2021-12-29 00:41] LABS: Add Urine Microscopic? NO; Charge for UA Resulting for Rev
[2021-12-29 00:49] LABS: Bilirubin Urine Neg (Negative); Blood Urine Neg (Negative); Glucose Urine UA Norm (Normal); Ketones Urine Negative (Negative); Leukocyte Esterase Urine Negative (Negative); Nitrate Urine Negative (Negative); Protein Urine Neg (Negative); Urine Appearance Clear (CLEAR); Urine Color Yellow (Yellow); Urobilinogen Urine Norm (Negative); pH Urine 6 (5-7)
[2021-12-29] MEDS: pantoprazole 40 mg SDV IVP ×2 (02:11→15:13)
[2021-12-29] MEDS: heparin 5,000 unit/mL INJ 1 mL 5000 UNIT SUBCUT ×2 (02:12→15:15)
[2021-12-29] MEDS: piperacillin-tazobactam 3.375 GM in sodium chloride 0.9% (plus) 50 ML IV ×3 (05:24→21:39)
[2021-12-29] MEDS: HYDROcodone-acetaminophen 5-325 mg Tablet PO (05:39)
[2021-12-29 06:36] LABS: Glucose Point of Care 95 mg/dL (70-110)
[2021-12-29 06:36] LABS: Glucose Point of Care 98 mg/dL (70-110)
[2021-12-29 06:38] LABS: Basophils # 0.1 10^3/uL (0.0-0.1); Basophils % 0.8 %; Eosinophils # 0.1 10^3/uL (0.0-0.8); Eosinophils % 1.9 %; Hematocrit 47.7 % (42.0-52.0); Hemoglobin 15.6 g/dL (11.7-16.6); Lymphocytes # 1.1 10^3/uL (0.8-4.8); Mean Corpuscular HGB Conc 32.7 g/dL (30.0-36.0); Mean Corpuscular Hemoglobin 29.9 pg (28.0-34.0); Mean Corpuscular Volume 91.6 fl (80-94); Mean Platelet Volume 10.8 fL (7.4-10.4); Monocytes # 0.7 10^3/uL (0.2-0.9); Monocytes % 8.8 %; Neutrophils % 73.4 %; Nucleated Red Blood Cells % 0 %; Platelet Count 175 10^3/cmm (130-400); Red Blood Count 5.21 10^6/uL (4.1-5.3); Red Cell Distribution Width 12.9 % (12.1-15.1); White Blood Count 7.5 10^3/uL (4.0-10.0)
[2021-12-29 07:13] LABS: Alanine Aminotransferase 8 U/L (0-41); Albumin Level 3.8 g/dL (3.5-5.2); Alkaline Phosphatase 78 IU/L (40-130); Anion Gap 13.7 (5-19); Aspartate Amino Transferase 18 U/L (0-40); Blood Urea Nitrogen 38 mg/dL (8-23); Calcium 8.8 mg/dL (8.5-10.5); Carbon Dioxide 30 mmol/L (22-29); Chloride 97 mmol/L (98-107); Chol HDL Ratio 3.89 mg/dL (1.0-5.00); Cholesterol 140 mg/dL (0-200); Globulin 2.3 g/dL (1.3-4.6); Glucose 99 mg/dL (65-115); HDL Cholesterol 36 mg/dL (60-100); LDL Cholesterol Calculated 91 mg/dL (50-129); LDL HDL Ratio 2.53 RATIO (0.00-3.22); Magnesium 2.3 mg/dL (1.7-2.3); Osmolality Calculated 293 mOsm/kg (285-295); Phosphorus 3.3 mg/dL (2.5-4.5); Potassium 3.7 mmol/L (3.5-5.1); Sodium 137 mmol/L (136-145); Total Bilirubin 1.8 mg/dL (0.15-1.2); Total Protein 6.1 g/dL (6.6-8.7); Triglycerides 67 mg/dL (0-150)
[2021-12-29 07:46] LABS: Estmated Average Glucose 103; Hemoglobin A1C 5.2 % (4.0-6.0)
[2021-12-29] MEDS: levalbuterol 0.63 mg/3 mL Neb INHALATION ×4 (07:48→20:34)
[2021-12-29 08:04] LABS: Glucose Point of Care 86 mg/dL (70-110)
--- NOTE | 2021-12-29 08:51 | P.PN_ITS ---
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 He says he is passing a lot of flatus. Vitals/I&O/Wt Last Vital Signs Temp 98.3 F 12/29/21 04:00 Pulse 69 12/29/21 07:32 Resp 18 12/29/21 07:32 BP 109/71 12/29/21 07:32 Pulse Ox 91 12/29/21 07:32 12/28/21 12/29/21 12/29/21 22:59 06:59 14:59 Intake Total 210 / 3416.667 1046.667 / 3416.667 Output Total 300 / 755 450 / 755 Balance -90 / 2661.667 596.667 / 2661.667 Weight last 48 hrs Weight 243 lb 12.8 oz Weight 255 lb Physical Exam Narrative: Bowel sounds are present. Dressing is intact. The underlying incision looks good (I lifted up the edge just to inspect the wound). Data : 12/29/21 05:55 12/29/21 05:55 A&P Assessment and plan (1) Incarcerated umbilical hernia: Status post reduction and repair of incarcerated umbilical hernia on 12/28/2021. The patient is feeling much better. He is passing flatus. Discontinue NG tube. Ambulate. Consistent carbohydrate clear liquid diet. Advance as tolerated. Status: Acute (2) Small bowel obstruction: Secondary to #1. Status: Acute Attestations Medical Necessity Statement*: See admitting service's notation. Coding Level of Care Code Acute Critical Power Install Technician for [facility] Diagnoses Incarcerated umbilical hernia K42.0 Small bowel obstruction K56.609
[2021-12-29] MEDS: sodium chloride 0.9% 1,000 ML 75 ML IV (12:02)
--- NOTE | 2021-12-29 13:55 | P.PN_ITS ---
Subjective Subjective: Patient underwent ORIF today. Tolerated procedure well. Today morning sitting up in chair with family at bedside. Diet advanced as per surgical team. Patient passing flatus. Denies any nausea, vomiting, headache. In good spirits. Vitals/I&O/Wt Last Vital Signs Temp 98.1 F 12/29/21 12:00 Pulse 91 12/29/21 12:18 Resp 18 12/29/21 12:09 BP 113/71 12/29/21 12:00 Pulse Ox 92 12/29/21 12:09 12/28/21 12/29/21 12/29/21 22:59 06:59 14:59 Intake Total 210 / 2370 1046.667 / 3416.667 1240 / 1240 Output Total 300 / 305 450 / 755 200 / 200 Balance -90 / 2065 596.667 / 2661.667 1040 / 1040 Weight last 48 hrs Weight 110.586 kg Weight 115.666 kg Physical Exam Narrative: General: AO x3, no acute distress HEENT: PERRLA, pupils bilaterally equal and reactive Chest: Bilateral bronchial breath sounds, occasional rhonchi present all over the lung kwon, equal good air entry bilaterally CVS: S1-S2 irregularly irregular no murmurs, no tachycardia, no gallops, no rubs Abdomen: Soft, nontender, surgical dressing clean, bowel sounds present still mildly sluggish Neuro: No focal deficits, no facial deformity, AO x3, power 5/5 in all limbs Data : 12/29/21 05:55 12/29/21 05:55 A&P Assessment and plan (1) Incarcerated umbilical hernia: Status: Acute (2) Complete small bowel obstruction: Status: Acute (3) BRAD (acute kidney injury): Status: Acute (4) Chronic atrial fibrillation: Status: Acute (5) Chronic respiratory failure with hypoxia: Status: Acute (6) Congestive heart failure: Status: Acute Qualifiers: Heart failure type: diastolic Heart failure chronicity: chronic Qualified Code(s): I50.32 - Chronic diastolic (congestive) heart failure (7) Diabetes mellitus: Status: Acute Qualifiers: Diabetes mellitus type: type 2 Diabetes mellitus nursing home insulin use: without nursing home use Diabetes mellitus complication status: with hyperglycemia Qualified Code(s): E11.65 - Type 2 diabetes mellitus with hyperglycemia Plan Incarcerated umbilical hernia leading to small bowel obstruction: Appreciate surgical recommendations. Post reduction and repair of incarcerated umbilical hernia day 1. Diet advance as per surgical team. Out of bed to chair. Incentive spirometry. Follow blood cultures. Continue with Zosyn for now. Acute kidney injury: Most likely secondary dehydration from multiple episodes of vomiting secondary to bowel obstruction concomitant use of Lasix. IV fluids 100 cc/h while monitoring closely for fluid overload. Medical reconciliation done for nephrotoxic drugs. Repeat BMP in a.m. History of congestive heart failure: Diastolic type. Repeat echocardiogram done shows an EF of 60%, moderately increased left LA size IV fluid as above. Monitor for fluid overload. Daily weights Strict input output charting. Chronic atrial fibrillation: Rate controlled currently. Not on anticoagulation as an outpatient given history of cerebral aneurysm. Not on rate limiting drugs given history of bradycardia and hypotension in the past. Telemetry. Chronic hypoxic respiratory failure: Secondary to congestive heart failure, obstructive sleep apnea, COPD. Oxygen supplementation keeping saturation over 88%. DuoNeb every 6 hour, budesonide twice daily. BiPAP overnight at home setting. Incentive spirometry. Type 2 diabetes mellitus: I A1c 5.2. Insulin sliding scale before meals and at bedtime. Continue other chronic oral medications. Full code. Protonix OPD prophylaxis. Heparin 5000 every 12 hourly. Cardiac carb consistent diet. Attestations Medical Necessity Statement*: Requires further hospitalization from management of BRAD, postoperative care for reduction of incarcerated umbilical hernia leading to bowel obstruction Time Spent in Patient Care: Greater than 35 minutes Coding Level of Care Code Acute Bee Worker for [facility] Diagnoses Incarcerated umbilical hernia K42.0 Complete small bowel obstruction K56.601 BRAD (acute kidney injury) N17.9 Chronic atrial fibrillation I48.20 Chronic respiratory failure with hypoxia J96.11 Congestive heart failure I50.32 Heart failure type: diastolic Heart failure chronicity: chronic Diabetes mellitus E11.65 Diabetes mellitus type: type 2 Diabetes mellitus nursing home insulin use: without long wall mining machine tender use Diabetes mellitus complication status: with hyperglycemia
[2021-12-29 15:04] LABS: Iron 78 ug/dL (59-158); Percent Saturation 19.5 % (20-50); Total Iron Binding Capacity 398 mcg/dl; Unsaturated Iron Binding 320 ug/dL (112-347)
[2021-12-29 15:10] LABS: Thyroid Stimulating Hormone 1.24 uIU/mL (0.27-4.20)
[2021-12-29 15:20] LABS: Folate Level 16.7 ng/mL (4.5-32.2)
[2021-12-29 15:20] LABS: Vitamin B12 278 pg/mL (232-1245)
[2021-12-29] MEDS: ipratropium 0.5 mg/2.5 mL Neb INHALATION ×2 (16:52→20:34)
[2021-12-29 17:11] LABS: Glucose Point of Care 122 mg/dL (70-110)
--- NOTE | 2021-12-29 19:41 | PC.NURSE ---
SHIFT SUMMARY PT HAS DONE WELL THIS SHIFT, HE HAS AMBULATED 350 FT WITH A WALKER, VOIDED APPROXIMATELY 700ML TOTAL. NO COMPLAINTS OF PAIN, JUST SORENESS WHEN MOVING AROUND. NG WAS DISCONTINUED AT BEGINNING OF SHIFT, CLEAR LIQUIDS ORDERED AT THAT TIME. PT TOLERATED WELL, INCREASED TO CARDIAC DIET AT LUNCH. PT HAS PASSED GAS AND TOLERATED DIET WELL. DRESSING TO LOWER ABD C/D/I. PATIENT UP TO BATHROOM AT THIS TIME, FAMILY IN ROOM VISITING.
[2021-12-29] MEDS: ropinirole 1 mg Tablet PO (20:05)
[2021-12-29 20:27] LABS: Glucose Point of Care 103 mg/dL (70-110)
[2021-12-29] MEDS: budesonide 0.5 mg/2 mL Neb INHALATION (20:34)
[2021-12-30] VITALS: BP 105/68; PULSE 75; RESP 15; O2SAT 85
[2021-12-30] MEDS: pantoprazole 40 mg SDV IVP (02:18)
[2021-12-30] MEDS: sodium chloride 0.9% 1,000 ML 75 ML IV (02:19)
[2021-12-30] MEDS: heparin 5,000 unit/mL INJ 1 mL 5000 UNIT SUBCUT (02:19)
[2021-12-30 03:27] LABS: Basophils % 0.6 %; Eosinophils # 0.3 10^3/uL (0.0-0.8); Hematocrit 43.5 % (42.0-52.0); Hemoglobin 14.1 g/dL (11.7-16.6); Lymphocytes # 1.2 10^3/uL (0.8-4.8); Lymphocytes % 19.5 %; Mean Corpuscular HGB Conc 32.4 g/dL (30.0-36.0); Mean Corpuscular Hemoglobin 30.1 pg (28.0-34.0); Mean Corpuscular Volume 92.8 fl (80-94); Mean Platelet Volume 10.6 fL (7.4-10.4); Monocytes # 0.6 10^3/uL (0.2-0.9); Monocytes % 8.9 %; Neutrophils # 4.13 10^3/uL (1.8-7.7); Neutrophils % 66.7 %; Nucleated Red Blood Cells % 0 %; Platelet Count 149 10^3/cmm (130-400); Red Blood Count 4.69 10^6/uL (4.1-5.3); Red Cell Distribution Width 12.7 % (12.1-15.1); White Blood Count 6.2 10^3/uL (4.0-10.0)
[2021-12-30 03:48] LABS: Alanine Aminotransferase < 5 U/L (0-41); Albumin Level 3.1 g/dL (3.5-5.2); Alkaline Phosphatase 71 IU/L (40-130); Anion Gap 13.4 (5-19); Aspartate Amino Transferase 15 U/L (0-40); Blood Urea Nitrogen 26 mg/dL (8-23); Calcium 8.4 mg/dL (8.5-10.5); Carbon Dioxide 28 mmol/L (22-29); Chloride 99 mmol/L (98-107); Globulin 2.7 g/dL (1.3-4.6); Glucose 101 mg/dL (65-115); Osmolality Calculated 289 mOsm/kg (285-295); Potassium 3.4 mmol/L (3.5-5.1); Sodium 137 mmol/L (136-145); Total Bilirubin 1.1 mg/dL (0.15-1.2); Total Protein 5.8 g/dL (6.6-8.7)
[2021-12-30 04:00] VITALS: BP 102/65; PULSE 75; RESP 15; TEMP 36.7; O2SAT 91
[2021-12-30] MEDS: levothyroxine 137 mcg Tablet PO (04:10)
[2021-12-30] MEDS: piperacillin-tazobactam 3.375 GM in sodium chloride 0.9% (plus) 50 ML IV (06:36)
[2021-12-30] MEDS: potassium chloride ER 20 mEq Tablet 40 MEQ PO (06:36)
[2021-12-30 07:04] VITALS: BP 104/67; PULSE 76; RESP 17; TEMP 36.7; O2SAT 97
--- NOTE | 2021-12-30 08:52 | P.PN_ITS ---
Subjective Subjective: The patient is feeling well. He does not care for the hospital food but is tolerating a consistent carbohydrate diet. He had a large bowel movement. He would like to go home. Vitals/I&O/Wt Last Vital Signs Temp 98.0 F 12/30/21 07:04 Pulse 76 12/30/21 07:04 Resp 17 12/30/21 07:04 BP 104/67 12/30/21 07:04 Pulse Ox 97 12/30/21 07:04 12/29/21 12/30/21 12/30/21 22:59 06:59 14:59 Intake Total 110 / 2810 1410 / 2810 Output Total 700 / 1250 350 / 1250 Balance -590 / 1560 1060 / 1560 Weight last 48 hrs Weight 243 lb 12.8 oz Physical Exam Narrative: Bowel sounds are present. The dressing was removed and the incision looks good. Data : 12/30/21 02:28 12/30/21 02:28 A&P Assessment and plan (1) Incarcerated umbilical hernia: Status post reduction and repair of incarcerated umbilical hernia on 12/28/2021. The patient is doing well. Okay for discharge from my standpoint. I will make arrangements for follow-up in the office as an outpatient. Status: Acute (2) Small bowel obstruction: Secondary to #1, now resolved. Status: Acute Attestations Medical Necessity Statement*: See admitting service's notation. Coding Level of Care Code Acute Electronic Lab Technician for Matt Rocha Diagnoses Incarcerated umbilical hernia K42.0 Small bowel obstruction K56.609
[2021-12-30] MEDS: montelukast sodium 10 mg Tablet PO (08:53)
[2021-12-30] MEDS: aspirin 81 mg EC Tablet PO (08:53)
[2021-12-30] MEDS: tamsulosin 0.4 mg Capsule PO (08:53)
[2021-12-30 09:11] VITALS: PULSE 72; RESP 18; O2SAT 92
[2021-12-30] MEDS: budesonide 0.5 mg/2 mL Neb INHALATION (09:11)
[2021-12-30] MEDS: levalbuterol 0.63 mg/3 mL Neb INHALATION (09:11)
[2021-12-30] MEDS: ipratropium 0.5 mg/2.5 mL Neb INHALATION (09:11)
[2021-12-30 09:56] LABS: Glucose Point of Care 104 mg/dL (70-110)
--- NOTE | 2021-12-30 10:20 | P.DS_ITS ---
Discharge Providers Date of Admission: 12/28/21 12:50 Date of Discharge: December 30, 2021 Attending Provider at Admission: Carter Rahman MD Attending Provider at Discharge: Carter Rahman MD Primary Care Provider: Emil Oliveira DO Diagnoses at Discharge Discharge Diagnosis (1) Incarcerated umbilical hernia: Status: Acute (2) Small bowel obstruction: Status: Acute Reason for Visit Reason for Visit: Vomiting Hospital Course Hospital Course Dr. 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 Discharge home with close follow-up with general surgery as outpatient Patient also had an acute kidney injury likely secondary dehydration during his hospitalization, received IV fluids, creatinine on discharge 1.4, advised to hold Lasix for 48 hours before resuming. Physical Exam Const: COMMON NORMALS: no acute distress and patient oriented x3 Resp: COMMON NORMALS: normal respiratory effort, No retractions, No use of accessory muscles and clear to auscultation bilaterally AUSCULTATION: clear to auscultation bilaterally Cardio: COMMON NORMALS: regular rate, regular rhythm, S1 normal heart sound p resent and S2 normal heart sound present RATE: regular rate RHYTHM: regular rhythm HEART SOUNDS: S1 normal heart sound present and S2 normal heart sound present GI: COMMON NORMALS: Normal to inspection, nondistended, normoactive bowel sounds present, Soft to palpation, non-tender and No hepatosplenomegaly present PALPATION: Yes Soft to palpation and Yes No hepatosplenomegaly present OTHER: Abdominal incisions site looks clean and dry Extremity: COMMON NORMALS: no clubbing, cyanosis or edema and no pedal edema Neuro: COMMON NORMALS: patient oriented x3 Psych: COMMON NORMALS: mental status grossly normal Discharge Data Studies Completed and Pending Completed Studies During Hospitalization Category Date Time Status CT abdomen pelvis wo con [id number] Urgent Cat Scan 12/28/21 00:[address] head wo con* [id number] Stat Cat Scan 12/28/21 00:49 Completed XR chest 1V portable [id number] Urgent Exams 12/28/21 05:48 Completed CV. echo complete* [id number] Routine Ultrasound 12/28/21 14:00 Completed US renal BI* [id number] Routine Ultrasound 12/30/21 19:45 Completed Radiology Impressions Abdomen/Pelvis CT 12/28/21 00:49 IMPRESSION: Small-bowel obstruction with dilated loops of small bowel up to 3.9 cm proximal to the incarcerated umbilical hernia. COMMENTS: Consistent with the [employer]'s Incidental Findings Committee white paper (J Am Frank Radiol 2018): Any incidental renal lesion less than 1 cm or classified as too small to characterize, or any incidental cystic renal lesion characterized as simple-appearing, is likely benign. No follow-up imaging is recommended for these lesions per consensus recommendations based on imaging criteria. Head CT 12/28/21 00:49 IMPRESSION: 1. Question right carotid terminus small aneurysm. Fusiform aneurysmal dilatation of the right MCA and moderate M2 segment stenosis. 2. Large left MCA bifurcation aneurysm measures 1.4 cm. Recommend neurosurgical consultation. 3. 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 4. Moderate involutional changes, no acute intracranial abnormality. Chest X-Ray 12/28/21 05:48 IMPRESSION: Enteric tube tip over the gastric fundus with the side hole over the distal esophagus. This could be advanced. Renal Ultrasound 12/30/21 19:45 IMPRESSION: 1. No hydronephrosis or solid mass identified. 2. Bilateral renal cysts. The largest cyst within the LEFT kidney as described above. 3. Urinary bladder is not distended. Laboratory Results WBC 6.2 10^3/uL (4.0-10.0) 12/30/21 02:28 RBC 4.69 10^6/uL (4.1-5.3) 12/30/21 02:28 Hgb 14.1 g/dL (11.7-16.6) 12/30/21 02:28 Hct 43.5 % (42.0-52.0) 12/30/21 02:28 MCV 92.8 fl (80-94) 12/30/21 02:28 MCH 30.1 pg (28.0-34.0) 12/30/21 02:28 MCHC 32.4 g/dL (30.0-36.0) 12/30/21 02: RDW 12.7 % (12.1-15.1) 12/30/21 02: Plt Count 149 10^3/cmm (130-400) 12/30/21 02: MPV 10.6 fL (7.4-10.4) H 12/30/21 02: Neut % (Auto) 66.7 % 12/30/21 02: Lymph % (Auto) 19.5 % 12/30/21 02: [place] % (Auto) 8.9 % 12/30/21 02: Eos % (Auto) 4.0 % 12/30/21 02: Baso % (Auto) 0.6 % 12/30/21 02: Neut # (Auto) 4.13 10^3/uL (1.8-7.7) 12/30/21 02: Lymph # (Auto) 1.2 10^3/uL (0.8-4.8) 12/30/21 02: [place] # (Auto) 0.6 10^3/uL (0.2-0.9) 12/30/21 02: Eos # (Auto) 0.3 10^3/uL (0.0-0.8) 12/30/21 02: Baso # (Auto) 0.0 10^3/uL (0.0-0.1) 12/30/21 02: Nucleated RBC % (auto) 0 % 12/30/21 02: Nucleated RBCs # 0.0 /100WBC 12/30/21 02: Sodium 137 mmol/L (136-145) 12/30/21 02: Potassium 3.4 mmol/L (3.5-5.1) L 12/30/21 02: Chloride 99 mmol/L (98-107) 12/30/21 02: Carbon Dioxide 28 mmol/L (22-29) 12/30/21 02: Anion Gap 13.4 (5-19) 12/30/21 02:28 BUN 26 mg/dL (8-23) H 12/30/21 02:28 Creatinine 1.4 mg/dL (0.7-1.2) H 12/30/21 02:28 GFR Calculation Not Reportable 12/30/21 02:28 Glucose 101 mg/dL (65-115) 12/30/21 02:28 POC Glucose 104 mg/dL (70-110) 12/30/21 02:18 Estimat Average Glucose 103 12/29/21 05:55 Hemoglobin A1c 5.2 % (4.0-6.0) 12/29/21 05:55 Calculated Osmolality 289 mOsm/kg (285-295) 12/30/21 02:28 Lactate 2.2 mmol/L (0.5-2.2) 12/28/21 01:35 Calcium 8.4 mg/dL (8.5-10.5) L 12/30/21 02:28 Phosphorus 3.3 mg/dL (2.5-4.5) 12/29/21 05:55 Magnesium 2.3 mg/dL (1.7-2.3) 12/29/21 05:55 Iron 78 ug/dL (59-158) 12/29/21 05:55 TIBC 398 mcg/dl 12/29/21 05:55 % Saturation 19.5 % (20-50) L 12/29/21 05:55 Unsat Iron Binding 320 ug/dL (112-347) 12/29/21 05:55 Total Bilirubin 1.1 mg/dL (0.15-1.2) 12/30/21 02:28 AST 15 U/L (0-40) 12/30/21 02:28 ALT < 5 U/L (0-41) 12/30/21 02:28 Alkaline Phosphatase 71 IU/L (40-130) 12/30/21 02:28 C-Reactive Protein 20.7 mg/L (0.0-4.9) H 12/28/21 02:02 Total Protein 5.8 g/dL (6.6-8.7) L 12/30/21 02:28 Albumin 3.1 g/dL (3.5-5.2) L 12/30/21 02:28 Globulin 2.7 g/dL (1.3-4.6) 12/30/21 02:28 Triglycerides 67 mg/dL (0-150) 12/29/21 05:55 Cholesterol 140 mg/dL (0-200) 12/29/21 05:55 LDL Cholesterol, Calc 91 mg/dL (50-129) 12/29/21 05:55 HDL Cholesterol 36 mg/dL (60-100) L 12/29/21 05:55 LDL/HDL Ratio 2.53 RATIO (0.00-3.22) 12/29/21 05:55 Cholesterol/HDL Ratio 3.89 mg/dL (1.0-5.00) 12/29/21 05:55 Lipase 21 U/L (13-60) 12/28/21 02:02 Vitamin B12 278 pg/mL (232-1245) 12/29/21 05:55 Folate 16.7 ng/mL (4.5-32.2) 12/28/21 02:02 Procalcitonin 0.23 ng/mL (0-0.5) 12/28/21 02:02 TSH 1.24 uIU/mL (0.27-4.20) 12/29/21 05:55 Urine Color Yellow (Yellow) 12/29/21 00:30 Urine Appearance Clear (CLEAR) 12/29/21 00:30 Urine pH 6 (5-7) 12/29/21 00:30 Ur Specific Maurice 1.020 (1.005-1.030) 12/29/21 00:30 Urine Protein Neg (Negative) 12/29/21 00:30 Urine Glucose (UA) Norm (Normal) 12/29/21 00:30 Urine Ketones Negative (Negative) 12/29/21 00:30 Urine Blood Neg (Negative) 12/29/21 00:30 Urine Nitrate Negative (Negative) 12/29/21 00:30 Urine Bilirubin Neg (Negative) 12/29/21 00:30 Urine Urobilinogen Norm mg/dL (Negative) 12/29/21 00:30 Ur Leukocyte Esterase Negative (Negative) 12/29/21 00:30 Vitals Last Vital Signs Temp 98.0 F 12/30/21 07:04 Pulse 72 12/30/21 09:11 Resp 18 12/30/21 09:11 BP 104/67 12/30/21 07:04 Pulse Ox 92 12/30/21 09:11 Discharge Plan Discharge Patient Disposition: Home Condition: Good Prescriptions: New hydrocodone-acetaminophen 5-325 mg tablet 1 - 2 tab PO Q5H PRN (Reason: pain) Qty: 30 0RF Continued cetirizine [Zyrtec] 10 mg tablet 10 mg PO DAILY PRN (Reason: allergy symptoms) Qty: 20 0RF montelukast [Singulair] 10 mg tablet 10 mg PO DAILY Qty: 30 3RF fluticasone propion-salmeterol [Advair Diskus] 250-50 mcg/dose blister with device 2 inh inhalation BID Qty: 120 3RF fluticasone propionate [Flonase Allergy Relief] 50 mcg/actuation spray,suspension 1 spray intranasal BID Qty: 100 3RF Rx Instructions: administer into each nostril albuterol sulfate 2.5 mg /3 mL (0.083 %) solution for nebulization 2.5 mg continuous nebulization QID PRN (Reason: shortness of breath or wheezing) 0RF acetaminophen [Tylenol Extra Strength] 500 mg tablet 1,000 mg PO QID PRN (Reason: Pain) 0RF aspirin [Adult Aspirin Regimen] 81 mg tablet,delayed release (DR/EC) 81 mg PO DAILY 0RF spironolactone 25 mg tablet 25 mg PO DAILY 30 Days Qty: 30 5RF ropinirole 1 mg tablet 1 mg PO BEDTIME 0RF levothyroxine [Synthroid] 137 mcg Tablet 137 mcg PO DAILY@04 0RF modafinil 200 mg Tablet 200 mg PO DAILY@06 0RF pantoprazole 40 mg Tablet,Delayed Release (Dr/Ec) 40 mg PO BID@06,18 0RF cholecalciferol (vitamin D3) [Vitamin D3] 50 mcg (2,000 unit) Capsule 2,000 unit PO DAILY@06 0RF tamsulosin 0.4 mg capsule 0.4 mg PO DAILY 0RF potassium chloride [Klor-Con M20] 20 mEq Tablet,Er Particles/Crystals 20 meq PO DAILY Qty: 30 0RF Ozempic 1 mg/dose (2 mg/1.5 mL) Pen Injector 1 mg SUBCUT Q7D 0RF Rx Instructions: On Sundays Senna Lax 8.6 mg tablet 8.6 mg PO BEDTIME 0RF Held furosemide 40 mg Tablet 40 mg PO DAILY@0800 Qty: 30 0RF Hold Instructions: Resume on 01/01/22. Discharge Orders: Discharge Order (Routine); Ordered 12/30/21 Ordered By: Javid Trinidad Referrals: Carter Rahman MD [Physician] - 2 weeks (Nursing: Please call Dr. Rahman's office ([phone]) and make an appointment for the patient to be seen in 10-14 days.) Emil Oliveira, [Primary Care Provider] - Discharge Diet: Usual diet Discharge Activity: Limit activity as instructed Patient Instructions: Opioid Safety Activity Restrictions/Additional Instructions: 1. Discharge to home per hospitalist service when okay with them. 2. Appointment to see Dr. Rahman in 10-14 days. 3. May shower at home. 4. [place] 5/325 1-2 tablets by mouth every 5 hours as needed for pain. #30, no refills. No lifting over 20 pounds, no repetitive bending or twisting, no strenuous pushing / pulling or other heavy activity. Ambulate regularly. May go up and down steps if needed. -Please hold Lasix for 48 hours, creatinine on discharge 1.4 Discharge Attestations Time Spent in Discharge Care*: less than 30 min Quality Metrics Clinical Quality Measures [ No reported AMI, CVA or VTE this stay] Coding Level of Care Code Acute [facility] note Diagnoses Incarcerated umbilical hernia K42.0 Small bowel obstruction K56.609
[2021-12-30 12:00] VITALS: PULSE 72; RESP 18; O2SAT 92
--- NOTE | 2021-12-30 19:45 | US_ITS ---
WS: [id number] RENAL ULTRASOUND HISTORY: increased creatinine COMPARISON: 03/12/2020 TECHNIQUE: 2-D and color Doppler imaging of the kidney submitted. Right kidney: 13.1 cm x 6.1 cm x 5.4 cm. Normal echogenicity with no hydronephrosis or mass. Cortical cyst mid kidney measures 1.6 x 2.3 x 1.6 cm. Left kidney: 12.2 cm x 6.5 cm x 4.3 cm. Multiple cystic masses from the LEFT kidney. Largest cyst from the superior kidney measures 5.6 x 6.1 x 5.6 cm. Largest cyst from the lower pole measures 5.1 x 5.0 x 5.0 cm. Aorta: Not visualized. Completely shadowed by gas. Urinary Bladder: Not visualized. US/US renal BI* [id number] IMPRESSION: 1. No hydronephrosis or solid mass identified. 2. Bilateral renal cysts. The largest cyst within the LEFT kidney as described above. 3. Urinary bladder is not distended.
== END 2021-12-30 12:00 | disposition home or self-care (01) | DRG 354 ==
LOC: ER 12-28 05:54 → OR 12-28 08:24 → MEDSURG 12-29 08:06
PROVIDERS: Student in an Organized Health Care Education/Training Program; Admitting Provider Surgery; Emergency Provider Emergency Medicine; PCP Emergency Medicine Emergency Medical Services; Visit Provider Surgery
PROC: 0WQF0ZZ Repair Abdominal Wall, Open Approach (ICD-10-PCS; CPT 49000; principal; 2021-12-28 11:25)
DX: K42.0 Umbilical hernia with obstruction, without gangrene (principal); K56.601 Complete intestinal obstruction, unspecified as to cause; N17.9 Acute kidney failure, unspecified; I50.32 Chronic diastolic (congestive) heart failure; I48.20 Chronic atrial fibrillation, unspecified; J96.11 Chronic respiratory failure with hypoxia; E86.0 Dehydration; I11.0 Hypertensive heart disease with heart failure; I25.10 Atherosclerotic heart disease of native coronary artery without angina pectoris; N40.0 Benign prostatic hyperplasia without lower urinary tract symptoms; E11.9 Type 2 diabetes mellitus without complications; Z79.82 Long term (current) use of aspirin; Z79.51 Long term (current) use of inhaled steroids; Z99.89 Dependence on other enabling machines and devices; Z79.4 Long term (current) use of insulin; J44.9 Chronic obstructive pulmonary disease, unspecified; G47.33 Obstructive sleep apnea (adult) (pediatric)
CPT/HCPCS: 36415; 36416; 70450; 71045; 74176; 76770; 80048; 80053; 80061; 81003; 82607; 82746; 82962; 83036; 83540; 83550; 83605; 83690; 83735; 84100; 84145; 84443; 85025; 86140; 93306; 94640; 96365; 96366; 96372; 96375; 99285; C9113; J0330; J0690; J1100; J1170; J1644; J2250; J2270; J2370; J2405; J2543; J2704; J3490; J7030; J7614; J7626; J7644; S0030

== ENCOUNTER 2022-02-11 09:56 | Outpatient (CLI) | payer MEDICARE, OTHER, SELFPAY ==
--- NOTE | 2022-02-11 10:05 | CT_ITS ---
WS: [id number] CT LUMBAR SPINE TECHNIQUE: Noncontrast CT of the lumbar spine with coronal and sagittal reformatted images. CLINICAL INFORMATION: CHRONIC LOW BACK PAIN COMPARISON: MRI January 09, 2021 DLP: 1672.[address] scans at [facility] use at least one of these dose optimization techniques: automated e xposure control; mA and/or kV adjustment per patient size (includes targeted exams where dose is matc hed to clinical indication); or iterative reconstruction. FINDINGS: Lumbar curve convex RIGHT. No acute compression fractures. Disc space narrowing T12-L5 with vacuum di sc phenomenon at multiple levels. Disc space narrowing worse at T12-L1, L1-L2, and L5-S1. Grade 1 ant erolisthesis L5 on S1 measuring 8.0 mm. Chronic bilateral spondylolysis L5-S1. Alignment appears unch anged since the prior MRI. L1-L2: Disc space narrowing with vacuum disc phenomenon. Osteophytic ridging. Slight narrowing of the LEFT subarticular recess. Mild LEFT foraminal narrowing. Moderate facet arthropathy. L2-L3: Minimal disc bulge with endplate ridging. Moderate facet arthropathy. Spinal canal and foramen are patent. Moderate facet arthropathy. L3-L4: Mild disc bulging with slight effacement of ventral thecal sac with mild to moderate central c anal stenosis. Vacuum disc phenomenon. Slight impingement on the RIGHT subarticular recess and jenise sing RIGHT L4 nerve root. Moderate to advanced facet arthropathy. Mild to moderate RIGHT and no signi ficant LEFT foraminal narrowing. L4-L5: Mild annular bulging with slight effacement of the ventral thecal sac. Narrowing of the subart icular recess bilaterally. Advanced facet arthropathy. Ligamentum flavum hypertrophy. Mild RIGHT and no significant LEFT foraminal narrowing. L5-S1: Grade 1 anterolisthesis L5 on S1 stable compared to the prior MRI measuring 8 mm. Chronic spon dylolysis at this level. Moderate bilateral bony foraminal narrowing. Slight impingement on the exiti ng L5 nerve roots bilaterally. Moderate to advanced facet arthropathy. Adrenal glands are normal. LEFT renal cyst measures 6.4 x 5.3 CM. Smaller RIGHT renal cyst. CT/CT lumbar spine wo con* [id number] IMPRESSION: 1. Mild lumbar curve convex RIGHT. Stable grade 1 anterolisthesis L5 on S1 wit h chronic spondylolysis. 2. Mild to moderate central canal stenosis L3-L4 with narrowing of the RIGHT g reater than LEFT subarticular recess. 3. Mild to moderate RIGHT L3-L4 foraminal narrowing. 4. Mild narrowing subarticular recess bilaterally L4-L5. Mild RIGHT L4-L5 fora barbra narrowing. 5. Moderate bilateral bony foraminal narrowing L5-S1 with contact of the exiti ng L5 nerve roots. 6. Disc space narrowing worse at T12-L1, L1-L2, and L5-S1 with vacuum disc phe nomenon.
== END 2022-02-11 09:57 | disposition home or self-care (01) ==
LOC: RAD 09:59
PROVIDERS: PCP Emergency Medicine Emergency Medical Services; Visit Provider Emergency Medicine Emergency Medical Services
DX: M54.50 Low back pain, unspecified (principal)
CPT/HCPCS: 72131

== ENCOUNTER → 2022-03-11 09:00 | Outpatient (BNVA) | payer OTHER, MEDICARE, SELFPAY | PROVIDERS: PCP Emergency Medicine Emergency Medical Services; Visit Provider Orthopaedic Surgery | DX: M43.17 Spondylolisthesis, lumbosacral region (principal) | CPT/HCPCS: 72110; 99204 ==

== ENCOUNTER 2022-05-05 12:58 | Inpatient (IN) | payer OTHER, MEDICARE, SELFPAY ==
[2022-05-02 10:08] VITALS: BMI 37.6
[2022-05-05] VITALS (19 sets, daily range): BP systolic 93–122; BP diastolic 62–85; PULSE 73–93; RESP 5–20; TEMP 36.3–37.3; O2SAT 91–100; BMI 37.6
--- NOTE | 2022-05-05 | SCC_ITS ---
Procedure done: 1. L4- pelvis fusioun 2. L4 - S1 instrumentation 3. Lumbopelvic fixation 4. L4/5 laminectomy with partial facetectomy 5. L5/S1 laminectomy with partial factectomy 6. use of computer navigation/ stereotactic for spine 7. bone marrow aspiration of right iliac crest 8. autograft bone from same incision 9. allograft 19 seconds of fluoroscopic guidance, for a cumulative dose of 74.1 mGy, was provided to Dr. Mancia by the radiology department. C-arm images of the lumbar spine were saved for the patient's permanent record. SAMUEL
--- NOTE | 2022-05-05 07:44 | ANES.PREANE2 ---
Pre-Anesthetic Assessment Height/Weight: Height 1.75 m Weight 115.666 kg Preop Diagnosis: Spondylolisthesis L5-S1, lumbar stenosis Operation Date: 05/05/22 08:50 Proposed Procedures p PSF(Not Applicable) - Mitesh Mancia DO s LUMBAR SPINE DECOMPRESSION L4-5 AND L5-S1 28121/62110/M43.17(Not Applicable) - Mitesh Mancia, Pulmonary Asthma, Sleep Apnea and Shortness of Breath CV/HEM Atrial Fibrillation, Coronary Artery Disease, Congestive Heart Failure, Hypertension and Peripheral Vascular Disease TTE 12/28/21 CONCLUSIONS ?Moderately increased septal wall thickness. Mildly increased ?left ventricular systolic volume. ?Normal LV systolic function. EF 60% ?Moderately increased left atrial area. ? ?Suboptimal image quality and can't visualize valves well. Stress test 12/2020 CONCLUSION: 1. No significant EKG changes with the LexiScan infusion 2. No LexiScan induced chest pain or cardiac arrhythmia 3. Normal blood pressure and heart rate response 4. Sestamibi/sestamibi perfusion scan pending; see separate report. BPH Metabolic Diabetes Mellitus Neuropsych Neuropathy Cerebral artery aneurysm Other Pertinent Information Hx of narcolepsy Medications/Allergies Home Medications Medication Instructions Recorded Confirmed Last Taken Type cholecalciferol (vitamin D3) 50 2,000 unit PO DAILY@06 12/11/19 05/02/22 12/12/20 History mcg (2,000 unit) capsule (Vitamin D3) levothyroxine 137 mcg tablet 137 mcg PO DAILY@04 12/11/19 05/02/22 12/12/20 History (Synthroid) modafinil 200 mg tablet 200 mg PO DAILY@12/11/19 05/02/22 12/12/20 History pantoprazole 40 mg tablet,delayed 40 mg PO BID@12/11/19 05/02/22 12/12/20 History release tamsulosin 0.4 mg capsule 0.4 mg PO DAILY 07/17/20 05/02/22 12/12/20 History acetaminophen 500 mg tablet 1,000 mg PO QID PRN Pain 12/12/20 05/02/22 Unknown History (Tylenol Extra Strength) albuterol sulfate 2.5 mg continuous nebulization QID 12/12/20 05/02/22 12/12/20 History PRN shortness of breath or wheezing furosemide 40 mg tablet 40 mg PO DAILY@0800 #30 tabs 12/16/20 05/02/22 Unknown Rx potassium chloride 20 mEq 20 meq PO DAILY #30 tabs 12/16/20 05/02/22 Unknown Rx tablet,extended release(part/cryst) (Klor-Con M) aspirin 81 mg tablet,delayed 81 mg PO DAILY 12/27/20 05/02/22 05/01/22 History release (Adult Aspirin Regimen) spironolactone 25 mg tablet 25 mg PO DAILY 30 days #30 tabs 12/27/20 05/02/22 Unknown Rx cetirizine 10 mg tablet (Zyrtec) 10 mg PO DAILY PRN allergy 01/09/21 05/02/22 Unknown Rx symptoms #20 tabs fluticasone 250 mcg-salmeterol 50 2 inh inhalation BID #120 ea 01/09/21 05/02/22 Unknown Rx mcg/dose blistr powdr for inhalation (Advair Diskus) fluticasone propionate 50 1 spray intranasal BID #100 mL 01/09/21 05/02/22 Unknown Rx mcg/actuation nasal spray,suspension (Flonase Allergy Relief) montelukast 10 mg tablet 10 mg PO DAILY #30 tabs 01/09/21 05/02/22 Unknown Rx (Singulair) ropinirole 1 mg tablet 1 mg PO BEDTIME 12/25/21 05/02/22 Unknown History semaglutide 1 mg/dose (2 mg/1.5 1 mg SUBCUT Q7D 12/29/21 05/02/22 Unknown History mL) subcutaneous pen injector (Ozempic) sennosides 8.6 mg tablet (Senna 8.6 mg PO BEDTIME 12/29/21 05/02/22 Unknown History Lax) hydrocodone 5 mg-acetaminophen 325 1 - 2 tab PO Q5H PRN pain #30 tabs 12/30/21 05/02/22 Unknown Rx mg tablet Allergies Allergy/AdvReac Type Severity Reaction Status Date / Time apixaban [From Eliquis] Allergy Severe Unknown Verified 03/11/22 10:48 ibuprofen [From Motrin] Allergy renal Verified 03/11/22 10:48 failure rivaroxaban [From Xarelto] Allergy bleeding Verified 03/11/22 10:48 tolmetin [From Tolectin] Allergy ALGY-Rash Verified 03/11/22 10:48 NSAIDS (Non-Steroidal AdvReac RENAL Verified 03/11/22 10:48 Anti-Inflamma COMPICATIONS [facility] Anesthesia Medical History Atrial fibrillation status post cardioversion Benign prostatic hyperplasia Cerebral arterial aneurysm Congestive heart failure Systolic and diastolic with EF of 34% on last echocardiogram from 12/23 COVID-19 Dyslipidemia H/O diabetic nephropathy History of left heart catheterization (LHC) Hyperlipidemia Hypertension Hypothyroidism Intermittent atrial fibrillation Narcolepsy SHER (obstructive sleep apnea) Peripheral arterial disease Right fibular fracture Shortness of breath on exertion Spontaneous hemorrhage This patient blood into the right calf muscle and had hematuria with Xarelto Surgical History H/O cardiac radiofrequency ablation x 2 History of cataract surgery Bilateral History of knee surgery Bilateral arthroscopy (multiple on each side) Pacemaker Presence of Watchman left atrial appendage closure device S/P rotator cuff repair Left Family History Other CAD (coronary artery disease) Cancer Hypertension Stroke Social History Smoking and tobacco status: never smoked Second hand smoke exposure: Yes Smoking risk assessment/counseling performed?: Yes Alcohol intake: never Lives independently: Yes Household members: spouse and children Housing: House Marital status: service: Yes Current occupational status: retired Pets and animals: Yes History of recent travel: No Current gender identity: Male Data Anesthesia Cardiac Studies: Echocardiogram 12/28/21 Echocardiogram Limited Views 12/13/20 Echocardiogram Ultrasound 08/14/20 Sestamibi Stress Test (Cardiology) 12/13/20 Cardiac Event Monitor 08/20/20
--- NOTE | 2022-05-05 08:08 | P.ANESASSM_ITS ---
Pre-Anesthetic Assessment Height/Weight: Height 1.75 m Weight 115.666 kg Temp Pulse Resp BP Pulse Ox O2 Del Method 97.3 F L 75 18 117/83 95 05/05/22 07:43 05/05/22 07:43 05/05/22 07:43 05/05/22 07:43 05/05/22 07:43 05/05/22 08:01 Preop Diagnosis: Spondylolisthesis L5-S1, lumbar stenosis Operation Date: 05/05/22 08:50 Proposed Procedures p PSF(Not Applicable) - Mitesh Mancia DO s LUMBAR SPINE DECOMPRESSION L4-5 AND L5-S1 13476/94222/M43.17(Not Applicable) - Mitesh Mancia DO Familial anesthetic complications: None Was Beta Ingrid taken within 24 hours: N/A Was Clonidine taken within 24 hours: N/A Last intake: Intake Last Liquid Date 05/04/22 Last Liquid Time 22:00 Last Solid Date 05/04/22 Last Solid Time 20:00 Social No alcohol and No tobacco Exam alert, oriented x 3, clear to auscultation bilaterally and regular rate & rhythm Airway Submandibular: within normal limits Cervical ROM: within normal limits Mallampati: Class II Dentition: false Comments: Comments: [place] [facility] Ast[facility] CV/HEM Atrial Fibrillation, Congestive Heart Failure (diastolilc dysfxn) and Hypertension Pacemaker Moderately increased septal wall thickness. Mildly increased ?left ventricular systolic volume. ?Normal LV systolic function. EF 60% ?Moderately increased left atrial area. ? ?Suboptimal image quality and can't visualize valves well. Chronic Renal Insufficiency Metabolic Diabetes Mellitus, Morbid Obesity and Thyroid Disease [facility] [place] Lower Back Pain and Osteoarthritis/DJD Neuropsych Neuropathy Anesthetic Plan ASA status: 3 Anesthesia: General Other: A.line Medications/Allergies Home Medications Medication Instructions Recorded Confirmed Last Taken Type cholecalciferol (vitamin D3) 50 2,000 unit PO DAILY@12/11/19 05/02/22 12/12/20 History mcg (2,000 unit) capsule (Vitamin D3) levothyroxine 137 mcg tablet 137 mcg PO DAILY@12/11/19 05/02/22 12/12/20 History (Synthroid) modafinil 200 mg tablet 200 mg PO DAILY@12/11/19 05/02/22 12/12/20 History pantoprazole 40 mg tablet,delayed 40 mg PO BID@06,18 12/11/19 05/02/22 12/12/20 History release tamsulosin 0.4 mg capsule 0.4 mg PO DAILY 07/17/20 05/02/22 12/12/20 History acetaminophen 500 mg tablet 1,000 mg PO QID PRN Pain 12/12/20 05/02/22 Unknown History (Tylenol Extra Strength) albuterol sulfate 2.5 mg continuous nebulization QID 12/12/20 05/02/22 12/12/20 History PRN shortness of breath or wheezing furosemide 40 mg tablet 40 mg PO DAILY@0800 #30 tabs 12/16/20 05/02/22 Unknown Rx potassium chloride 20 mEq 20 meq PO DAILY #30 tabs 12/16/20 05/02/22 Unknown Rx tablet,extended release(part/cryst) (Klor-Con M) aspirin 81 mg tablet,delayed 81 mg PO DAILY 12/27/20 05/02/22 05/01/22 History release (Adult Aspirin Regimen) spironolactone 25 mg tablet 25 mg PO DAILY 30 days #30 tabs 12/27/20 05/02/22 Unknown Rx cetirizine 10 mg tablet (Zyrtec) 10 mg PO DAILY PRN allergy 01/09/21 05/02/22 Unknown Rx symptoms #20 tabs fluticasone 250 mcg-salmeterol 50 2 inh inhalation BID #120 ea 01/09/21 05/02/22 Unknown Rx mcg/dose blistr powdr for inhalation (Advair Diskus) fluticasone propionate 50 1 spray intranasal BID #100 mL 01/09/21 05/02/22 Unknown Rx mcg/actuation nasal spray,suspension (Flonase Allergy Relief) montelukast 10 mg tablet 10 mg PO DAILY #30 tabs 01/09/21 05/02/22 Unknown Rx (Singulair) ropinirole 1 mg tablet 1 mg PO BEDTIME 12/25/21 05/02/22 Unknown History semaglutide 1 mg/dose (2 mg/1.5 1 mg SUBCUT Q7D 12/29/21 05/02/22 Unknown History mL) subcutaneous pen injector (Ozempic) sennosides 8.6 mg tablet (Senna 8.6 mg PO BEDTIME 12/29/21 05/02/22 Unknown History Lax) hydrocodone 5 mg-acetaminophen 325 1 - 2 tab PO Q5H PRN pain #30 tabs 12/30/21 05/02/22 Unknown Rx mg tablet Allergies Allergy/AdvReac Type Severity Reaction Status Date / Time apixaban [From Eliquis] Allergy Severe Unknown Verified 03/11/22 10:48 ibuprofen [From Motrin] Allergy renal Verified 03/11/22 10:48 failure rivaroxaban [From Xarelto] Allergy bleeding Verified 03/11/22 10:48 tolmetin [From Tolectin] Allergy ALGY-Rash Verified 03/11/22 10:48 NSAIDS (Non-Steroidal AdvReac RENAL Verified 03/11/22 10:48 Anti-Inflamma COMPICATIONS [facility] Anesthesia Medical History Atrial fibrillation status post cardioversion Benign prostatic hyperplasia Cerebral arterial aneurysm Congestive heart failure Systolic and diastolic with EF of 34% on last echocardiogram from 12/23 COVID-19 Dyslipidemia H/O diabetic nephropathy History of left heart catheterization (LHC) Hyperlipidemia Hypertension Hypothyroidism Intermittent atrial fibrillation Narcolepsy SHER (obstructive sleep apnea) Peripheral arterial disease Right fibular fracture Shortness of breath on exertion Spontaneous hemorrhage This patient blood into the right calf muscle and had hematuria with Xarelto Surgical History H/O cardiac radiofrequency ablation x 2 History of cataract surgery Bilateral History of knee surgery Bilateral arthroscopy (multiple on each side) Pacemaker Presence of Watchman left atrial appendage closure device S/P rotator cuff repair Left Family History Other CAD (coronary artery disease) Cancer Hypertension Stroke Social History Smoking and tobacco status: never smoked Second hand smoke exposure: Yes Smoking risk assessment/counseling performed?: Yes Alcohol intake: never Lives independently: Yes Household members: spouse and children Housing: House Marital status: service: Yes Current occupational status: retired Pets and animals: Yes History of recent travel: No Current gender identity: Male Data Anesthesia Cardiac Studies: Echocardiogram 12/28/21 Echocardiogram Limited Views 12/13/20 Echocardiogram Ultrasound 08/14/20 Sestamibi Stress Test (Cardiology) 12/13 Cardiac Event Monitor 08/20/20
[2022-05-05 08:23] LABS: Glucose Point of Care 95 mg/dL (70-110)
[2022-05-05 08:40] LABS: Basophils % 0.6 %; Eosinophils # 0.1 10^3/uL (0.0-0.8); Eosinophils % 2.2 %; Hematocrit 45.6 % (42.0-52.0); Hemoglobin 15.2 g/dL (11.7-16.6); Lymphocytes # 1.2 10^3/uL (0.8-4.8); Lymphocytes % 25.2 %; Mean Corpuscular HGB Conc 33.3 g/dL (30.0-36.0); Mean Corpuscular Hemoglobin 30.5 pg (28.0-34.0); Mean Corpuscular Volume 91.6 fl (80-94); Mean Platelet Volume 9.9 fL (7.4-10.4); Monocytes # 0.3 10^3/uL (0.2-0.9); Monocytes % 7.3 %; Neutrophils # 2.99 10^3/uL (1.8-7.7); Neutrophils % 64.5 %; Nucleated Red Blood Cells % 0 %; Platelet Count 151 10^3/cmm (130-400); Red Blood Count 4.98 10^6/uL (4.1-5.3); Red Cell Distribution Width 13.2 % (12.1-15.1); White Blood Count 4.6 10^3/uL (4.0-10.0)
[2022-05-05] MEDS: sodium chloride 0.9% 1,000 ML 30 ML IV (08:40)
--- NOTE | 2022-05-05 08:51 | P.HP_ITS ---
Providers/Chief Complaint Primary Care Provider: Emil Oliveira DO Chief Complaint: L4-S1 PSF W/DECOMPRESSION L4/S1 History of Present Illness Lupillo Silveira is a 76 year old male low back pain that has been ongoing for 40+ years. Chief Complaint: ache Onset: 1970 Duration: years Characteristics: numbness to left foot Severity: 05/14 Location: low back pain Radiating symptoms: bilat leg pain with left being worse Aggravating factors: standing, or walking any distance Alleviating factors: sitting/rest Neuro deficits: denies numbness, tingling, weakness, incontinence of bowel/bladder, saddle anesthesia. Prior tx: PT, injection by Dr. Mendoza with no relief with the last injection over one year ago. Review of Systems General: Reports: 10 or more systems reviewed and unremarkable except in HPI and below Const: Denies: fever(s), chills or diaphoresis Eyes: Denies: change in vision ENMT: Denies: throat pain Card: Denies: chest pain Resp: Denies: productive cough or non-productive cough GI: Denies: nausea or vomiting : Denies: difficulty urinating Musc: Reports: back pain, extremity pain and limited range of motion Skin/Breast: Denies: rash Neuro: Reports: weakness in extremities; Denies: headache(s) Psych: Denies: anxiety Endo: Denies: polyuria Dalton/Lymph: Denies: easy bruising Medications/Allergies Home Medications Medication Instructions Recorded Confirmed Last Taken Type cholecalciferol (vitamin D3) 50 2,000 unit PO DAILY@12/11/19 05/02/22 History mcg (2,000 unit) capsule (Vitamin D3) levothyroxine 137 mcg tablet 137 mcg PO DAILY@12/11/19 05/02/22 12/12/20 History (Synthroid) modafinil 200 mg tablet 200 mg PO DAILY@12/11/19 05/02/22 12/12/20 History pantoprazole 40 mg tablet,delayed 40 mg PO BID@12/11/19 05/02/22 12/12/20 History release tamsulosin 0.4 mg capsule 0.4 mg PO DAILY 07/17/20 05/02/22 12/12/20 History acetaminophen 500 mg tablet 1,000 mg PO QID PRN Pain 12/12/20 05/02/22 Unknown History (Tylenol Extra Strength) albuterol sulfate 2.5 mg continuous nebulization QID 12/12/20 05/02/22 12/12/20 History PRN shortness of breath or wheezing furosemide 40 mg tablet 40 mg PO DAILY@0800 #30 tabs 12/16/20 05/02/22 Unknown Rx potassium chloride 20 mEq 20 meq PO DAILY #30 tabs 12/16/20 05/02/22 Unknown Rx tablet,extended release(part/cryst) (Klor-Con M) aspirin 81 mg tablet,delayed 81 mg PO DAILY 12/27/20 05/02/22 05/01/22 History release (Adult Aspirin Regimen) spironolactone 25 mg tablet 25 mg PO DAILY 30 days #30 tabs 12/27/20 05/02/22 Unknown Rx cetirizine 10 mg tablet (Zyrtec) 10 mg PO DAILY PRN allergy 01/09/21 05/02/22 Unknown Rx symptoms #20 tabs fluticasone 250 mcg-salmeterol 50 2 inh inhalation BID #120 ea 01/09/21 05/02/22 Unknown Rx mcg/dose blistr powdr for inhalation (Advair Diskus) fluticasone propionate 50 1 spray intranasal BID #100 mL 01/09/21 05/02/22 Unknown Rx mcg/actuation nasal spray,suspension (Flonase Allergy Relief) montelukast 10 mg tablet 10 mg PO DAILY #30 tabs 01/09/21 05/02/22 Unknown Rx (Singulair) ropinirole 1 mg tablet 1 mg PO BEDTIME 12/25/21 05/02/22 Unknown History semaglutide 1 mg/dose (2 mg/1.5 1 mg SUBCUT Q7D 12/29/21 05/02/22 Unknown History mL) subcutaneous pen injector (Ozempic) sennosides 8.6 mg tablet (Senna 8.6 mg PO BEDTIME 12/29/21 05/02/22 Unknown History Lax) hydrocodone 5 mg-acetaminophen 325 1 - 2 tab PO Q5H PRN pain #30 tabs 12/30/21 05/02/22 Unknown Rx mg tablet Allergies Allergy/AdvReac Type Severity Reaction Status Date / Time apixaban [From Eliquis] Allergy Severe Unknown Verified 03/11/22 10:48 ibuprofen [From Motrin] Allergy renal Verified 03/11/22 10:48 failure rivaroxaban [From Xarelto] Allergy bleeding Verified 03/11/22 10:48 tolmetin [From Tolectin] Allergy ALGY-Rash Verified 03/11/22 10:48 NSAIDS (Non-Steroidal AdvReac RENAL Verified 03/11/22 10:48 Anti-Inflamma COMPICATIONS PFSH Acute PFSH: Medical History Atrial fibrillation status post cardioversion Benign prostatic hyperplasia Cerebral arterial aneurysm Congestive heart failure Systolic and diastolic with EF of 34% on last echocardiogram from 12/23 COVID-19 Dyslipidemia H/O diabetic nephropathy History of left heart catheterization (LHC) Hyperlipidemia Hypertension Hypothyroidism Intermittent atrial fibrillation Narcolepsy SHER (obstructive sleep apnea) Peripheral arterial disease Right fibular fracture Shortness of breath on exertion Spontaneous hemorrhage This patient blood into the right calf muscle and had hematuria with Xarelto Surgical History H/O cardiac radiofrequency ablation x 2 History of cataract surgery Bilateral History of knee surgery Bilateral arthroscopy (multiple on each side) Pacemaker Presence of Watchman left atrial appendage closure device S/P rotator cuff repair Left Family History Other CAD (coronary artery disease) Cancer Hypertension Stroke Social History Smoking and tobacco status: never smoked Second hand smoke exposure: Yes Smoking risk assessment/counseling performed?: Yes Alcohol intake: never Lives independently: Yes Household members: spouse and children Housing: House Marital status: service: Yes Current occupational status: retired Pets and animals: Yes History of recent travel: No Current gender identity: Male Vitals/I&O/Wt Last Vital Signs Temp 97.3 F L 05/05/22 07:43 Pulse 75 05/05/22 07:43 Resp 18 05/05/22 07:43 BP 117/83 05/05/22 07:43 Pulse Ox 95 05/05/22 07:43 O2 Del Method 05/05/22 08:01 Physical Exam Narrative: CONSTITUTIONAL: The patient is a normal appearing [] in no apparent distress. GENERAL: Patient in no acute distress. CARDIAC: Regular rate and rhythm. CHEST: Normal inspiratory effort, normal respiratory rate. ABDOMEN: Soft and nontender. SKIN: Clear, warm and intact. NEURO?PSYCH: The patient is alert and oriented to person, place and time. Sensorv /SILT Motor StrengthShoulder abduction C5 5/5Wrist extension C6 5/5Elbow extension C7 5/5Hand Instrument Tester C8 5/5Finger abduction T15/5 Radial/ Ulnar/ Median n intact LowerSensory (SILT)Motor StrengthHin flexion L2/3Ant/inner thigh 5/5Hip adduction L2/3 5/5Knee extension L4 Lat thigh, 5/5Toe dorsiflexion L5 5/5Ankle dorsiflexion L5/ [id number] flexion S1 5/5 DTRBleeps 2+Triceps 2+Brachioradialis 2+Patellar 2+Achilles 2+ MUSCULOSKELETAL: [] UPPEREXTREMITIES: The patient had full active ROM in fingers, wrist, elbow, and shoulder. The patient demonstrated ability to fully flex/extend/abduct/adduct fingers, make ok sign, cross 2nd/3rd digits, extend 1st digit fully.. Radial pulse 2+, CR<2 seconds. LOWER EXTREMITIES: Pt has full, active ROM of toes, ankle, knee, and hip. Dorsalis pedis/posterior tibialis pulses 2+, CR<2 seconds. SPINE: Skin warm, dry, intact. Data : 05/05/22 08:14 05/05/22 08:14 A&P Assessment and plan (1) Spondylolisthesis at L5-S1 level: Patient's failed so therapy this point plan is to do L4 pelvis fusion. With decompression. Patient's failed all EXTR measures. Status: Acute Attestations Medical Necessity Statement*: Failed conservative measures. Coding Level of Care Code Acute Track Repair Supervisor for Matt Rocha Diagnoses Spondylolisthesis at L5-S1 level M43.17
[2022-05-05 09:03] LABS: Anion Gap 12.2 (5-19); Blood Urea Nitrogen 14 mg/dL (8-23); Calcium 8.9 mg/dL (8.5-10.5); Carbon Dioxide 24 mmol/L (22-29); Chloride 105 mmol/L (98-107); Glucose 100 mg/dL (65-115); Osmolality Calculated 285 mOsm/kg (285-295); Potassium 4.2 mmol/L (3.5-5.1); Sodium 137 mmol/L (136-145)
[2022-05-05] MEDS: ceFAZolin 2,000 MG in sodium chloride 0.9% (plus) 50 ML 100 MG IV ×2 (09:11→17:04)
--- NOTE | 2022-05-05 09:34 | ANES.PROC ---
Anesthesia Procedures Procedure/Date: 05/05/22 Arterial Line: Time Out Performed: Yes Consent: from patient Size (Gauge): 20 Technique Used: other (Real time US guidance and visualization ) Post-Procedure: dry sterile dressing placed Patient Tolerated Procedure: well Complications: none Additional Comments: After sterile prep, using sterile technique, and using real time US guidance for vessel selection an 20 g left radial arterial was inserted with real time visualization of needle entry and real time visualization of catheter advancement. Tolerated well. 1 attempt.
[2022-05-05] MEDS: heparin, porcine 1,000 unit/mL INJ 10 mL 10000 UNIT XX (10:05)
[2022-05-05] MEDS: vancomycin 1,000 MG SDV 1000 MG XX (10:06)
--- NOTE | 2022-05-05 10:09 | SUR.OPER ---
family updated of surgical status
--- NOTE | 2022-05-05 12:11 | XR_ITS ---
WS: [id number] INTRAOPERATIVE TECHNIQUE: 6 Spot fluoroscopic images for intraoperative purposes. FLUOROSCOPY TIME: 19 seconds CLINICAL INFORMATION: OR PICS FINDINGS: Pedicle screw fixation L3-S1 with bilateral sacroiliac fixation screws. Hardware appears in good posi tion. XR/XR lumbar spine 2-3V* [id number] IMPRESSION: Images obtained for intraoperative purposes.
--- NOTE | 2022-05-05 12:25 | PM.OP ---
Operative Report Date of procedure: May 05, 2022 Pre-op diagnosis: Preop Diagnosis Spondylolisthesis L5-S1, lumbar stenosis Post-op diagnosis: same Procedure done: 1. L4- pelvis fusioun 2. L4 - S1 instrumentation 3. Lumbopelvic fixation 4. L4/5 laminectomy with partial facetectomy 5. L5/S1 laminectomy with partial factectomy 6. use of computer navigation/ stereotactic for spine 7. bone marrow aspiration of right iliac crest 8. autograft bone from same incision 9. allograft Surgeon: Mitesh Mancia High Pressure Cleaner: Jose Martin Remy High Pressure Cleaner: The prosthetic assistant, Jose Martin Remy, PAC was needed for his expertise under the microscope. He was important and necessary throughout the procedure to complete in a safe and timely manner. He assisted with patient positioning prepping and draping tissue retraction suctioning of the operative field protection of the dural sac and tissue closure Estimated blood loss (mL): 350 Procedure: 1. L4- pelvis fusioun 2. L4 - S1 instrumentation 3. Lumbopelvic fixation 4. L4/5 laminectomy with partial facetectomy 5. L5/S1 laminectomy with partial factectomy 6. use of computer navigation/ stereotactic for spine 7. bone marrow aspiration of right iliac crest 8. autograft bone from same incision 9. allograft Patient was brought to the procedure after undergoing anesthesia was had neuro monitoring placed. Once neuro monitors placed patient was then flipped into the prone position. All areas impingement well-padded. Patient was then prepped and draped no sterile fashion. Skin incision made from L4-S1. Subperiosteal dissection was made out to the transverse processes of L4-L5. And out to the sacral ala. Attention was then brought to bone marrow aspirate from the right iliac crest. The bone marrow aspiration kit needle was then inserted into the right iliac crest. Bone marrow was aspirated. And then the point insert was inserted and then the awl was inserted further. And then the bone marrow was aspirated in 1 mm increments 20 cc were aspirated. This was later mixed with the alograft bone which was ostial amp and that the autograft. Extension was brought to placing the fiducial for the computer navigation. 2 pins were placed into the right iliac crest. These pins later be removed. The pins were inserted and then the fiducial was attached. The C-arm was brought in and spun on the patient and the information that was brought from the C-arm will later be used for the computer navigation placement of the screws. Extension was brought to placing screws. This was done by using the computer navigated awl. This is the gearshift awl. The awl was placed into the S1 pedicle followed by the ball probe to palpate the pedicles wall and then followed by placement of the screw using computer navigation. This process was repeated at S1 bilaterally, L5 bilateral, and L4 bilaterally. Next attention was brought to placed in the iliac screws. This was done by using the gearshift awl it was done to the sacral ala iliac technique. Pedicle probe was then used to palpate to make sure that the gearshift was in the prone position and then the tap was used and then a 90 x 8.5 mm screw was placed into the iliac crest bilaterally. Next attention was brought to performing the laminectomy at L5-S1. Laminectomies performed using high-speed bur Kerrison rongeurs and the curettes. Once the lamina was removed attention was then brought to the facets bilaterally. The L5-S1 facet on the left was taken down with a high-speed bur Kerrison rongeurs and curettes. And then this was done on the right side as well. The S1 nerve root was traced around the S1 pedicle. And then the L5-S1 foramen was palpated and the L5 nerve was felt to be adequately decompressed bilaterally. Ligamentum flavum was taken off is thick patient has significant mount of fibrous tissue. Attention was then brought to the L4-5 level. The L4 lamina was taken down with a high-speed bur Kerrison rongeur and curettes the ligamentum flavum was taken down from L4-L5 bilaterally. The Kerrison rongeur was used to open up the foramen as well as take down the medial aspect of the facet joints bilaterally along with a high-speed bur. The L4 nerve was traced at the L4-5 foramen to further be adequately compressed. The L5 nerve was traced around the L5 pedicle bilaterally. Once all the lamina were done being decompressed and the nerves were decompressed attention was then brought to placing rods. The rods were attached from L4-S1 and to the iliac crest. And caps were placed at L4-L5 S1 and iliac screw this was done bilaterally. Once these were all locked down and torqued down attention was then brought to place the bone graft. The transverse processes bilaterally were drilled at L4-L5 and the sacral ala. And then the autograft was packed in the lateral gutters along with the allograft. Wounds were then closed in a layered fashion. The vancomycin powder was placed along with deep drain. And then the wound was closed with 0 Vicryl 2-0 Vicryl Monocryl Steri-Strips and sterile dressings. Patient was then transferred to the PACU in stable condition.
--- NOTE | 2022-05-05 13:18 | SUR.PHASEI ---
1305 Arterial Line removed. Pressure held x 10 minutes. Pressure dressing applied.
--- NOTE | 2022-05-05 13:19 | SUR.PHASEI ---
1231 Pt has SCDs on and placed to pump
--- NOTE | 2022-05-05 14:12 | ANE.PACU2 ---
Inpatient post-anesthesia follow up: Airway intact: Yes Vital signs: Temperature 98.0 F Pulse Rate 75 Respiratory Rate 14 Blood Pressure 99/62 Pulse Oximetry 93 Oxygen Delivery Me thod Room Air Oxygen Flow Rate 6 Fraction of Inspir ed Oxygen Hydration adequate: Yes Nausea and vomiting: No Pain level: 2 Mental status: Baseline
[2022-05-05] MEDS: HYDROcodone-acetaminophen 10-325 mg Tablet PO ×2 (14:47→19:34)
[2022-05-05] MEDS: lactated ringers 1,000 ML 90 ML IV (14:55)
[2022-05-05] MEDS: pantoprazole DR 40 mg Tablet PO (17:05)
[2022-05-05 17:15] LABS: Glucose Point of Care 99 mg/dL (70-110)
[2022-05-05] MEDS: sodium chloride 0.9% 500 ML IV (18:01)
[2022-05-05] MEDS: ropinirole 1 mg Tablet PO (20:15)
[2022-05-06] VITALS (9 sets, daily range): BP systolic 91–107; BP diastolic 54–71; PULSE 74–76; RESP 15–18; TEMP 36.6–37.1; O2SAT 90–98
[2022-05-06] MEDS: ceFAZolin 2,000 MG in sodium chloride 0.9% (plus) 50 ML 100 MG IV ×2 (00:21→08:06)
[2022-05-06] MEDS: lactated ringers 1,000 ML 90 ML IV ×3 (01:13→20:38)
[2022-05-06] MEDS: HYDROcodone-acetaminophen 10-325 mg Tablet PO ×4 (03:20→22:45)
[2022-05-06] MEDS: levothyroxine 137 mcg Tablet PO (03:21)
[2022-05-06] MEDS: pantoprazole DR 40 mg Tablet PO ×2 (05:44→18:37)
[2022-05-06] MEDS: cholecalciferol (vitamin D3) 1,000 unit Tablet 2000 UNIT PO (05:44)
[2022-05-06] MEDS: aspirin 81 mg EC Tablet PO (08:04)
[2022-05-06] MEDS: montelukast sodium 10 mg Tablet PO (08:04)
[2022-05-06] MEDS: spironolactone 25 mg Tablet PO (08:06)
--- NOTE | 2022-05-06 08:19 | P.PN_ITS ---
Subjective Subjective: POD 1 Patient resting comfortably. Complains of back pain. Denies any shortness of breath, lightheadedness, chest pain, shortness of breath. Vitals/I&O/Wt Last Vital Signs Temp 98.3 F 05/06/22 07:30 Pulse 74 05/06/22 07:30 Resp 16 05/06/22 07:30 BP 100/65 05/06/22 07:30 Pulse Ox 94 05/06/22 07:30 O2 Del Method 05/05/22 17:47 O2 Flow Rate 2 05/05/22 20:00 05/05/22 05/06/22 05/06/22 22:59 06:59 14:59 Intake Total 230 / 1380 1337 / 2717 Output Total 675 / 775 1150 / 1925 Balance -445 / 605 187 / 792 Weight last 48 hrs Weight 255 lb Physical Exam Narrative: Patient presents alert and oriented x3 with a good general appearance normal mood and affect. Normal coordination normal stability. Mild tenderness around the incisional site with the incision appear to be lean and dry with Hemovac intact. No signs of erythema or drainage. No signs of infection. Patient denies any fevers or chills. 5/5 motor strength both lower extremities with negative straight leg raise bilaterally. Calves are supple no medial thigh tenderness. Pulses are 2+ at the dorsalis pedis and posterior tibial region. Good capillary refill throughout normal sensation light touch both lower extremities. Urinary Catheter Management: Kowalski Latex: Cath Placed During This Visit: yes Reason for Continuing Indwelling Catheter: Perioperative Use in Selected Surgeries Urinary Catheter Date of Insertion: 05/05/22 Urinary Catheter Time of Insertion: 09:25 Data : 05/05/22 08:14 05/05/22 08:14 A&P Assessment and plan (1) S/P spinal fusion: Chart reports 1075 mg out of Hemovac drain. Has been hypotensive. We will repeat stat H&H. We will continue the Hemovac drain. We will have physical therapy work with mobilization. We will discontinue his Kowalski catheter. Encourage incentive spirometry for pulmonary toilet. Status: Acute Attestations Medical Necessity Statement*: DC tomorrow Procedures Arterial Line Size (Gauge): 20 Coding Level of Care Code Acute Electrician Helper Powerhouse for Chg Fwd Diagnoses S/P spinal fusion Z98.1
[2022-05-06 08:21] LABS: Hemoglobin 11.5 g/dL (11.7-16.6)
[2022-05-06] MEDS: sodium chloride 0.9% 500 ML IV (08:51)
--- NOTE | 2022-05-06 09:43 | PC.CHAP ---
Pastoral Care Encounter/Spiritual Assessment Type of Contact [] Declined laborer chicken farm visit [] Patient/Family/Request visit [] Outpatient visit [] Follow-up visit [] Physician referral [] Code/Alert [x] Routine visit [] Staff referral [] Actively dying [] Patient sleeping [] Family support [] [] Out of room [] Palliative care [] [x] Receiving care in room [] Pre-surgical visit [] Trauma [] Long length of stay [] ICU visit [] Other: Relational/Emotional Strength [] Patient feels connected with others/family/visitors/staff [] Distress [] Loneliness/isolation [] Abandonment Spirituality of Patient [] Person of Sissy [] Attends Mosque of their Sissy [] Believes in Prayer [] Reads Bible or Advent materials [] There are Spiritual issues to be addressed 5Th Grade Teacher Interventions [] Prayer [] Active listening [] Non-anxious presence [] Spiritual/emotional support [] Crisis/trauma care [] Spiritual counseling [] Bereavement support [] Provided bereavement packet [] Provided Bible/devotional materials [] Provided toy/stuffed animal, coloring book to patient or family member [] Provided Communion [] Anointing/[place] [] Salvation [] Completed spiritual assessment [] Other: Impact on Illness or Injury [] Angry [] Fearful [] Anxious [] Often cries [] Exhaustion [] Unable to work [] Unable to attend zoroastrian [] Unable to walk/stand [] Unable to read [] Unable to drive [] Unable to eat/drink [] Unable to sleep [] Unable to be with family [] Patient intubated [] Other: Summary Time spent with patient
--- NOTE | 2022-05-06 14:00 | PM.CONSULT ---
Providers/Reason For Consult Consulting Physician/Specialty*: Frase/Hosptialist Reason for Consult*: Low blood pressures post operatively Requesting Physician: Dr. 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 Mancia service status post L4 pelvic fusion, L4-S1 instrumentation, lumbopelvic fixation, L4-5 laminectomy with partial facetectomy and L5/S1 laminectomy with partial facetectomy on May 05. Postoperatively he was noted to have blood pressures ranging from 90-100/110s systolic over 60s to 70s diastolic. He has a history of hypertension as well as CHF and is chronically on furosemide and Aldactone. Last echocardiogram in December of this year showed an ejection fraction of 60% which is improved from prior values of 34% in December 2020. He has history of intermittent atrial fibrillation for which he underwent ablation x2 and has a pacemaker. He is not on any chronic anticoagulation secondary to history of significant bleeding (including into calf muscles) with prior anticoagulation. Has a watchman device. Angiogram from December 2020 with nonobstructive coronary disease. He did receive his Aldactone today but did not receive his furosemide. For pain he has been receiving hydrocodone predominantly. I do not see IV narcotics administered today. I's and O's are reviewed and he is positive approximately [id number] mls since admission. He had some mild dizziness when getting up the first time to urinate but otherwise only complaints are that of back pain after surgery, not inappropiate for surgery he had from what he has been informed. No complaints of chest pain or increased difficulty breathing. Documentation from operative report furs estimated surgical blood loss of 350 mL. Hemoglobin this morning was 11, down from 15. Renal function and other labs unremarkable yesterday. Checks his blood pressure at home periodically and has not noted similar low normal pressures lately. Hospitalist were asked to evaluate. At the time of my evaluation blood pressure was 131/76 not too long after patient had gotten up to the bedside to urinate. Review of Systems Const: Denies: fever(s) or chills Card: Denies: chest pain or palpitations Resp: Denies: dyspnea GI: Denies: nausea or vomiting : Reports: difficulty starting urination (Has to stand to urinate) Musc: Reports: back pain (Postoperative) Neuro: Reports: dizziness (With position change when got up to urinate today) [place]/Lymph: Reports: other (No bleeding) Medications/Allergies Home Medications Medication Instructions Recorded Confirmed Last Taken Type cholecalciferol (vitamin D3) 50 2,000 unit PO DAILY@06 12/11/19 05/02/22 12/12/20 History mcg (2,000 unit) capsule (Vitamin D3) levothyroxine 137 mcg tablet 137 mcg PO DAILY@12/11/19 05/02/22 12/12/20 History (Synthroid) modafinil 200 mg tablet 200 mg PO DAILY@12/11/19 05/02/22 12/12/20 History pantoprazole 40 mg tablet,delayed 40 mg PO BID@12/11/19 05/02/22 12/12/20 History release tamsulosin 0.4 mg capsule 0.4 mg PO DAILY 07/17/20 05/02/22 12/12/20 History acetaminophen 500 mg tablet 1,000 mg PO QID PRN Pain 12/12/20 05/02/22 Unknown History (Tylenol Extra Strength) albuterol sulfate 2.5 mg continuous nebulization QID 12/12/20 05/02/22 12/12/20 History PRN shortness of breath or wheezing potassium chloride 20 mEq 20 meq PO DAILY #30 tabs 12/16/20 05/02/22 Unknown Rx tablet,extended release(part/cryst) (Klor-Con M) aspirin 81 mg tablet,delayed 81 mg PO DAILY 12/27/20 05/02/22 05/01/22 History release (Adult Aspirin Regimen) spironolactone 25 mg tablet 25 mg PO DAILY 30 days #30 tabs 12/27/20 05/02/22 Unknown Rx cetirizine 10 mg tablet (Zyrtec) 10 mg PO DAILY PRN allergy 01/09/21 05/02/22 Unknown Rx symptoms #20 tabs fluticasone 250 mcg-salmeterol 50 2 inh inhalation BID #120 ea 01/09/21 05/02/22 Unknown Rx mcg/dose blistr powdr for inhalation (Advair Diskus) fluticasone propionate 50 1 spray intranasal BID #100 mL 01/09/21 05/02/22 Unknown Rx mcg/actuation nasal spray,suspension (Flonase Allergy Relief) montelukast 10 mg tablet 10 mg PO DAILY #30 tabs 01/09/21 05/02/22 Unknown Rx (Singulair) ropinirole 1 mg tablet 1 mg PO BEDTIME 12/25/21 05/02/22 Unknown History sennosides 8.6 mg tablet (Senna 8.6 mg PO BEDTIME 12/29/21 05/02/22 Unknown History Lax) hydrocodone 5 mg-acetaminophen 325 1 - 2 tab PO Q5H PRN pain #30 tabs 12/30/21 05/02/22 Unknown Rx mg tablet Bone Growth Stimulator E0748 #1 ea 05/05/22 Unknown Rx furosemide 40 mg tablet 40 mg PO DAILY 05/06/22 Unknown History semaglutide 1 mg/dose (4 mg/3 mL) 1 mg SUBCUT Q7D 05/06/22 05/06/22 Unknown History subcutaneous pen injector (Ozempic) Allergies Allergy/AdvReac Type Severity Reaction Status Date / Time apixaban [From Eliquis] Allergy Severe Unknown Verified 03/11/22 10:48 ibuprofen [From Motrin] Allergy renal Verified 03/11/22 10:48 failure rivaroxaban [From Xarelto] Allergy bleeding Verified 03/11/22 10:48 tolmetin [From Tolectin] Allergy ALGY-Rash Verified 03/11/22 10:48 NSAIDS (Non-Steroidal AdvReac RENAL Verified 03/11/22 10:48 Anti-Inflamma COMPICATIONS Current Medications Generic Name Dose Route Start Last Admin Trade Name Gregq PRN Reason Stop Dose Admin Hydrocodone Bitart/Acetaminophen 1 - 2 tab 05/05/22 12:20 05/06/22 08:05 Hydrocodone-Acetaminophen 10-325 Mg Tablet PO 2 tab Q4H PRN Administration MODERATE TO SEVERE PAIN Aspirin 81 mg 05/06/22 09:00 05/06/22 08:04 Aspirin 81 Mg Ec Tablet PO 81 mg DAILY ASHTYN Administration Docusate Sodium 100 mg 05/05/22 18:00 05/06/22 08:20 Docusate Sodium 100 Mg Capsule PO Not Given BID ASHTYN Fluticasone Propionate 1 spray 05/05/22 18:00 05/06/22 08:20 Fluticasone Nasal Kosse 16gm Btl INTRANASAL Not Given BID ASHTYN Furosemide 40 mg 08/02/22 08:00 05/06/22 08:20 Furosemide 40 Mg Tablet PO Not Given DAILY@0800 COUNTS INCLUDE 234 BEDS AT THE [facility] Lactated Ringer's 1,000 mls @ 90 mls/hr 05/05/22 12:30 05/06/22 12:11 Lactated Ringers IV 90 mls/hr .Q11H7M ASHTYN Administration Levothyroxine Sodium 137 mcg 05/06/22 04:00 05/06/22 03:21 Levothyroxine 137 Mcg Tablet PO 137 mcg DAILY@04 COUNTS INCLUDE 234 BEDS AT THE [facility] Administration Montelukast Sodium 10 mg 05/06/22 09:00 05/06/22 08:04 Montelukast Sodium 10 Mg Tablet PO 10 mg DAILY COUNTS INCLUDE 234 BEDS AT THE [facility] Administration Non-Formulary Medication 200 mg 05/06/22 06:00 05/06/22 05:44 Modafinil PO Not Given DAILY@06 COUNTS INCLUDE 234 BEDS AT THE [facility] Non-Formulary Medication 1 mg 05/05/22 12:30 05/05/22 14:55 Semaglutide [Ozempic] SUBCUT Not Given Q7D COUNTS INCLUDE 234 BEDS AT THE [facility] Pantoprazole Sodium 40 mg 05/05/22 18:00 05/06/22 05:[address] 40 Mg Tablet PO 40 mg BID@06,18 COUNTS INCLUDE 234 BEDS AT THE [facility] Administration Potassium Chloride 20 meq 05/06/22 09:00 05/06/22 08:20 Potassium Chloride Er 20 Meq Tablet PO Not Given DAILY COUNTS INCLUDE 234 BEDS AT THE [facility] Ropinirole HCl 1 mg 05/05/22 21:00 05/05/22 20:15 Ropinirole 1 Mg Tablet PO 1 mg BEDTIME COUNTS INCLUDE 234 BEDS AT THE [facility] Administration Fluticasone/Salmeterol 1 puff 05/05/22 20:00 05/06/22 10:17 Fluticasone-Salmeterol 250-50 Diskus INHALATION Not Given BID.RESPIRATORY ASHTYN Senna 8.6 mg 05/05/22 21:00 05/05/22 20:17 Sennosides 8.6 Mg Tablet PO Not Given BEDTIME COUNTS INCLUDE 234 BEDS AT THE [facility] Spironolactone 25 mg 05/06/22 09:00 05/06/22 08:06 Spironolactone 25 Mg Tablet PO 25 mg DAILY ASHTYN Administration Tamsulosin HCl 0.4 mg 05/06/22 09:00 05/06/22 08:21 Tamsulosin 0.4 Mg Capsule PO Not Given DAILY COUNTS INCLUDE 234 BEDS AT THE [facility] Vitamin D 2,000 unit 05/06/22 06:00 05/06/22 05:44 Cholecalciferol (Vitamin D3) 1,000 Unit Tablet PO 2,000 unit DAILY@06 ASHTYN Administration PFSH Acute PFSH: Medical History (Updated 05/06/22 @ 22:02 by Kenia Vazquez MD) Abnormal cardiovascular stress test Asthma Atherosclerotic heart disease of [place] coronary artery without angina pectoris Atrial fibrillation status post cardioversion Benign prostatic hyperplasia Cerebral arterial aneurysm Congestive heart failure Systolic and diastolic. EF of 34% on echocardiogram from 12/2020. EF of 60% on echocardiogram from 12/2021. COVID-19 Diabetes mellitus Dyslipidemia H/O diabetic nephropathy History of left heart catheterization (LHC) 12/2020 60 to 70% diffuse disease in the first diagonal branch of the left anterior descending artery. He had around 40 to 50% lesions in the distal left and descending artery. Minimal intimal irregularities in the RCA and the left circumflex artery. Based on angiographic findings, he was treated medically. Hypertension Hypothyroidism Intermittent atrial fibrillation Narcolepsy SHER (obstructive sleep apnea) Peripheral arterial disease Primary osteoarthritis of knees, bilateral Right fibular fracture Shortness of breath on exertion Spontaneous hemorrhage This patient bled into the right calf muscle and had hematuria with Xarelto Surgical History (Updated 05/06/22 @ 17:22 by Kenia Vazquez MD) H/O cardiac radiofrequency ablation x 2 History of cataract surgery Bilateral History of knee surgery Bilateral arthroscopy (multiple on each side) History of umbilical hernia repair (~12/2021) Pacemaker Presence of Watchman left atrial appendage closure device S/P rotator cuff repair Left S/P spinal fusion Family History Other CAD (coronary artery disease) Cancer Hypertension Stroke Social History (Updated 05/06/22 @ 21:25 by Kenia Vazquez MD) Smoking and tobacco status: never smoked Second hand smoke exposure: Yes Alcohol intake: never Substance/Drug Use: never Lives independently: Yes Household members: spouse and children Housing: House Marital status: service: Yes 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 Current gender identity: Male Vitals/I&O/Wt Last Vital Signs Temp 98.6 F 05/06/22 11:06 Pulse 75 05/06/22 11:06 Resp 16 05/06/22 11:06 BP 99/64 05/06/22 11:06 Pulse Ox 93 05/06/22 11:06 O2 Del Method 05/06/22 08:00 O2 Flow Rate 2 05/05/22 20:00 05/05/22 05/06/22 05/06/22 22:59 06:59 14:59 Intake Total 230 / 1380 1337 / 2717 2335 / 2335 Output Total 675 / 775 1150 / 1925 300 / 300 Balance -445 / 605 187 / 792 5 / 2035 Weight last 48 hrs Weight 115.666 kg Physical Exam Narrative: Constitutional: Awake and alert, able to provide history, cooperative HEENT: Normocephalic, atraumatic, arcus senilis noted bilaterally, moist mucous membranes Neck: Large but supple Respiratory: Clear to auscultation bilaterally without any rales rhonchi or wheezes noted Cardiovascular: Pacemaker intact in the left upper chest, regular rhythm, 2+ pulses radially, 1+ dorsalis pedis bilaterally Abdomen: Soft, rotund, abdominal binder in place, positive bowel sounds Extremities: No calf tenderness, no cyanosis, no edema Skin: Dry, surgical site not personally examined though visible abdominal binder clean dry and intact Neuro: Speech clear, face symmetric, moves all extremities Psych: Normal affect Urinary Catheter Management: Kowalski Latex: Cath Placed During This Visit: yes, but has since been removed by the nurse Reason for Continuing Indwelling Catheter: Decision to DC Catheter Urinary Catheter Date of Insertion: 05/05/22 Urinary Catheter Time of Insertion: 09:25 Date Urinary Catheter Removed: 05/06/22 Time Urinary Catheter Discontinued: 10:14 Data : 05/06/22 07:57 05/05/22 08:14 Other Labs: Radiology Impressions Lumbar Spine X-Ray 05/05/22 12:11 IMPRESSION: Images obtained for intraoperative purposes. Laboratory Results WBC 4.6 10^3/uL (4.0-10.0) 05/05/22 08:14 RBC 4.98 10^6/uL (4.1-5.3) 05/05/22 08:14 Hgb 11.5 g/dL (11.7-16.6) L 05/06/22 07:57 Hct 45.6 % (42.0-52.0) 05/05/22 08:14 MCV 91.6 fl (80-94) 05/05/22 08:14 MCH 30.5 pg (28.0-34.0) 05/05/22 08:14 MCHC 33.3 g/dL (30.0-36.0) 05/05/22 08:14 RDW 13.2 % (12.1-15.1) 05/05/22 08:14 Plt Count 151 10^3/cmm (130-400) 05/05/22 08:14 MPV 9.9 fL (7.4-10.4) 05/05/22 08:14 Neut % (Auto) 64.5 % 05/05/22 08:14 Lymph % (Auto) 25.2 % 05/05/22 08:14 [place] % (Auto) 7.3 % 05/05/22 08:14 Eos % (Auto) 2.2 % 05/05/22 08:14 Baso % (Auto) 0.6 % 05/05/22 08:14 Neut # (Auto) 2.99 10^3/uL (1.8-7.7) 05/05/22 08:14 Lymph # (Auto) 1.2 10^3/uL (0.8-4.8) 05/05/22 08:14 [place] # (Auto) 0.3 10^3/uL (0.2-0.9) 05/05/22 08:14 Eos # (Auto) 0.1 10^3/uL (0.0-0.8) 05/05/22 08:14 Baso # (Auto) 0.0 10^3/uL (0.0-0.1) 05/05/22 08:14 Nucleated RBC % (auto) 0 % 05/05/22 08:14 Nucleated RBCs # 0.0 /100WBC 05/05/22 08:14 Sodium 137 mmol/L (136-145) 05/05/22 08:14 Potassium 4.2 mmol/L (3.5-5.1) 05/05/22 08:14 Chloride 105 mmol/L (98-107) 05/05/22 08:14 Carbon Dioxide 24 mmol/L (22-29) 05/05/22 08:14 Anion Gap 12.2 (5-19) 05/05/22 08:14 BUN 14 mg/dL (8-23) 05/05/22 08:14 Creatinine 0.9 mg/dL (0.7-1.2) 05/05/22 08:14 GFR Calculation Not Reportable 05/05/22 08:14 Glucose 100 mg/dL (65-115) 05/05/22 08:14 POC Glucose 99 mg/dL (70-110) 05/05/22 16:57 Calculated Osmolality 285 mOsm/kg (285-295) 05/05/22 08:14 Calcium 8.9 mg/dL (8.5-10.5) 05/05/22 08:14 Blood Type A Negative 05/05/22 08:14 Rho(D) Type Negative 05/05/22 08:14 Antibody Screen Negative 05/05/22 08:14 A&P Assessment and plan (1) Low blood pressure reading: Occurring the day after surgery. Had Aldactone today. Positive over 2500 mL of fluid for entire hospital stay. Clinically appears euvolemic but does have known history of CHF. Cardiac catheterization in December 2020 showed mild to moderate diffuse coronary artery disease managed medically. Patient himself denies any chest pain or increased difficulty breathing. He has known history of atrial fibrillation status post ablation x2 and known pacemaker currently with a regular rhythm. Medication effect another consideration including from anesthesia, pain medications, diuretics and alpha-blockers. He had hydrocodone 5/325 at home and is currently receiving hydrocodone 10 mg tablets, usually 2 at a time for pain. I suspect that this is at least part of, if not the primary reason for lower blood pressure readings today. He was dizzy with first time getting up to side of bed to urinate, which is not uncommon for first time after surgery. Presently feeling okay and with currently improved blood pressures. Status: Acute (2) Hypertension: Chronically on Aldactone. Has been on lasix but did not take today. Status: Chronic Qualifiers: Hypertension type: primary hypertension Qualified Code(s): I10 - Essential (primary) hypertension (3) Atherosclerotic heart disease of [place] coronary artery without angina pectoris: Medically managed, on aspirin therapy Status: Chronic Qualifiers: [place] vs. transplanted heart: [place] heart Qualified Code(s): I25.10 - Atherosclerotic heart disease of [place] coronary artery without angina pectoris (4) Congestive heart failure: Chronic diastolic by echocardiogram done earlier this year although has had evidence of systolic dysfunction in the past, not currently decompensated, clinically appears euvolemic Status: Chronic Qualifiers: Heart failure chronicity: chronic Heart failure type: diastolic Qualified Code(s): I50.32 - Chronic diastolic (congestive) heart failure (5) H/O cardiac radiofrequency ablation: For atrial fibrillation, x two, currently with regular rhythm on examination Status: Chronic (6) Pacemaker: Status: Chronic (7) Presence of Watchman left atrial appendage closure device: Unable to be anticoagulated due to history of significant bleeding with anticoagulation in past Status: Chronic (8) Benign prostatic hyperplasia: Chronically on flomax with good symptom control; has to stand to urinate however Status: Chronic Qualifiers: Lower urinary tract symptom presence: symptoms present Lower urinary tract symptom detail: weak urinary stream Qualified Code(s): N40.1 - Benign prostatic hyperplasia with lower urinary tract symptoms; R39.12 - Poor urinary stream (9) Diabetes mellitus: Chronically on Ozempic Status: Chronic Qualifiers: Diabetes mellitus type: type 2 Diabetes mellitus 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 insulin use: without mcc use Diabetes mellitus complication status: with hyperglycemia Qualified Code(s): E11.65 - Type 2 diabetes mellitus with hyperglycemia (10) Asthma: Chronically on albuterol inhaler as needed, Advair, along with cetirizine, Singulair and Flonase Status: Chronic (11) Narcolepsy: Chronically on modafinil Status: Chronic Plan Hypothyroidism on levothyroxine Restless leg on Requip I have stopped fluids at this time given CHF history and current positive fluid balance Already received diuretic therapy this morning, will hold further dosing for the time being Watch I's and O's Will reevaluate in the morning with orthostatics Continuing Flomax given difficulty with urination Check EKG, BNP and troponin Recheck electrolytes in the morning Continue oral hydrocodone for pain control although may have to consider decreased dose, or even potentially alternative pain medication, if low normal blood pressures persists/recur or worsen, especially in light of need to continue some degree of diuretics Will follow while patient is here and adjust management accordingly Thank you very much for consultation Plans discussed with patient and he was given an opportunity to ask questions Procedures Arterial Line Size (Gauge): 20 Coding Level of Care Code Acute Refrigeration Systems Installer for Matt Rocha Diagnoses Low blood pressure reading R03.1 Hypertension I10 Hypertension type: primary hypertension Atherosclerotic heart disease of [place] coronary artery without angina pectoris I25.10 [place] vs. transplanted heart: [place] heart Congestive heart failure I50.32 Heart failure chronicity: chronic Heart failure type: diastolic H/O cardiac radiofrequency ablation Z98.890 Pacemaker Z95.0 Presence of Watchman left atrial appendage closure device Z95.818 Benign prostatic hyperplasia N40.1; R39.12 Lower urinary tract symptom presence: symptoms present Lower urinary tract symptom detail: weak urinary stream Diabetes mellitus E11.65 Diabetes mellitus type: type 2 Diabetes mellitus mcc insulin use: without 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 use Diabetes mellitus complication status: with hyperglycemia Asthma J45.909 Narcolepsy G47.419
[2022-05-06] MEDS: docusate sodium 100 mg Capsule PO (18:37)
[2022-05-06] MEDS: sennosides 8.6 mg Tablet PO (20:37)
[2022-05-06] MEDS: ropinirole 1 mg Tablet PO (20:37)
--- NOTE | 2022-05-06 22:36 | ECG_ITS ---
[facility] Test Date: 2022-05-06 Pat Name: Lupillo Silveira Department: Room: 263 Gender: Male City Dispatcher: : 1945 Requested By: Misty Dennis Order Number: [id number] Hugo MD: Jaylyn Chase M.D. Measurements Intervals [place] Rate: 75 P: [place]: QRS: -73 QRSD: 184 T: 84 QT: 446 QTc: 498 Interpretive Statements ELECTRONIC VENTRICULAR PACEMAKER ABNORMAL RHYTHM ECG Compared to ECG 12/12/2020 16:51:13 Atrial fibrillation no longer present Aberrant conduction of supraventricular beat(s) no longer present Ventricular premature complex(es) no longer present T-wave abnormality no longer present Electronically Signed On 05-07-2022 6:37:07 CDT by Jaylyn Chase M.D. [id number]
[2022-05-07] VITALS: BP 103/69; PULSE 74; RESP 14; TEMP 36.9; O2SAT 95
[2022-05-07 00:14] LABS: Troponin(5th) Baseline 19 ng/L (0-15)
--- NOTE | 2022-05-07 00:22 | ECG_ITS ---
[facility] Test Date: 2022-05-07 Pat Name: Lupillo Silveira Department: Room: 263 Gender: Male Health Education Teacher: : 1945 Requested By: Misty Dennis Order Number: [id number] Hugo MD: Sarah Merlos M.D. Measurements Intervals [place] Rate: 75 P: [place]: QRS: -70 QRSD: 185 T: 86 QT: 447 QTc: 499 Interpretive Statements ELECTRONIC VENTRICULAR PACEMAKER ABNORMAL RHYTHM ECG Compared to ECG 05/06/2022 22:36:34 No significant changes Electronically Signed On 05-07-2022 19:50:15 CDT by Sarah Merlos M.D. [id number]
[2022-05-07 01:43] LABS: Hematocrit 30.9 % (42.0-52.0)
[2022-05-07 02:16] LABS: Blood Urea Nitrogen 11 mg/dL (8-23); Calcium 7.8 mg/dL (8.5-10.5); Carbon Dioxide 24 mmol/L (22-29); Chloride 103 mmol/L (98-107); Glucose 122 mg/dL (65-115); Magnesium 1.5 mg/dL (1.7-2.3); NT Pro B Type Natriuretic Pept 884 pg/mL (0-450); Osmolality Calculated 281 mOsm/kg (285-295); Sodium 135 mmol/L (136-145)
[2022-05-07 04:00] VITALS: BP 104/68; PULSE 75; RESP 13; TEMP 37.1; O2SAT 93
--- NOTE | 2022-05-07 04:26 | ECG_ITS ---
[facility] Test Date: 2022-05-07 Pat Name: Lupillo Silveira Department: Room: 263 Gender: Male Housekeeping Supervisor: : 1945 Requested By: Misty Dennsi Order Number: [id number] Hugo MD: Sarah Merlos M.D. Measurements Intervals [place] Rate: 76 P: 146 NV: 139 QRS: -74 QRSD: 192 T: 89 QT: 446 QTc: 504 Interpretive Statements ELECTRONIC VENTRICULAR PACEMAKER ABNORMAL RHYTHM ECG Compared to ECG 05/07/2022 00:22:05 No significant changes Electronically Signed On 05-07-2022 19:49:23 CDT by Sarah Merlos M.D. [id number]
[2022-05-07] MEDS: pantoprazole DR 40 mg Tablet PO (05:54)
[2022-05-07] MEDS: levothyroxine 137 mcg Tablet PO (05:54)
[2022-05-07] MEDS: cholecalciferol (vitamin D3) 1,000 unit Tablet 2000 UNIT PO (05:55)
[2022-05-07 06:01] LABS: Troponin 5 6HR 17.05 ng/L (0-15)
[2022-05-07 06:02] LABS: Troponin 5 6HR Delta -1.95 ng/L (0-12)
--- NOTE | 2022-05-07 06:53 | P.PN_ITS ---
Subjective Subjective: POPD 2 Patient resting comfortably. Currently denies chest pain but had about through the evening where an EKG was performed currently reports no shortness of breath. No headaches. Continued numbness in his legs. Vitals/I&O/Wt Last Vital Signs Temp 98.7 F 05/07/22 04:00 Pulse 75 05/07/22 04:00 Resp 13 05/07/22 04:00 BP 104/68 05/07/22 04:00 Pulse Ox 93 05/07/22 04:00 O2 Del Method 05/07/22 04:00 O2 Flow Rate 2 05/07/22 04:00 05/06/22 05/06/22 05/07/22 14:59 22:59 06:59 Intake Total 2455 / 2455 1360.5 / 3815.5 Output Total 300 / 300 875 / 1175 300 / 1475 Balance 2155 / 2155 485.5 / 2640.5 -300 / 2340.5 Weight last 48 hrs Weight 255 lb Physical Exam Narrative: Patient presents alert and oriented x3 with a good general appearance normal mood and affect. Normal coordination normal stability. Mild tenderness around the incisional site with the incision appear to be healing nicely. No signs of erythema or drainage. No signs of infection. Patient d enies any fevers or chills. 5/5 motor strength both lower extremities with negative straight leg raise bilaterally. Calves are supple no medial thigh tenderness. Pulses are 2+ at the dorsalis pedis and posterior tibial region. Good capillary refill throughout normal sensation light touch both lower extremities. Urinary Catheter Management: Kowalski Latex: Cath Placed During This Visit: yes, but has since been removed by the nurse Reason for Continuing Indwelling Catheter: Decision to DC Catheter Urinary Catheter Date of Insertion: 05/05/22 Urinary Catheter Time of Insertion: 09: Date Urinary Catheter Removed: 05/06/22 Time Urinary Catheter Discontinued: 10:14 Data : 05/07/22 01:25 05/07/22 01:25 A&P Assessment and plan (1) Status post lumbar spinal fusion: Physical therapy to continue to continue incentive spirometry for pulmonary toilet. Will discharge patient home later today. Have him follow-up in 1 week's time for wound check. Continue walking program with no bending lifting or twisting. Status: Acute Attestations Medical Necessity Statement*: DC home today Procedures Arterial Line Size (Gauge): 20 Coding Level of Care Code Acute Field Operations Technician for Chg Fwd Diagnoses Status post lumbar spinal fusion Z98.1
[2022-05-07 08:00] VITALS: BP 94/60; PULSE 74; RESP 16; TEMP 37.2; O2SAT 92
[2022-05-07 08:30] VITALS: PULSE 75; RESP 18; O2SAT 92
[2022-05-07] MEDS: tamsulosin 0.4 mg Capsule PO (08:42)
[2022-05-07] MEDS: HYDROcodone-acetaminophen 10-325 mg Tablet PO (08:42)
[2022-05-07] MEDS: montelukast sodium 10 mg Tablet PO (08:42)
[2022-05-07] MEDS: aspirin 81 mg EC Tablet PO (08:42)
[2022-05-07] MEDS: docusate sodium 100 mg Capsule PO (08:42)
[2022-05-07 09:02] VITALS: BP 100/67; BP 106/69; BP 115/72; PULSE 75; PULSE 77
--- NOTE | 2022-05-07 10:00 | ECG_ITS ---
[facility] Test Date: 2022-05-07 Pat Name: Lupillo Silveira Department: Room: 263 Gender: Male Technical Specialist Cytogenetics: : 1945 Requested By: Kenia Vazquez Order Number: [id number] Hugo MD: Sarah Merlos M.D. Measurements Intervals [place] Rate: 75 P: [place]: QRS: -69 QRSD: 189 T: 82 QT: 452 QTc: 505 Interpretive Statements ELECTRONIC VENTRICULAR PACEMAKER ABNORMAL RHYTHM ECG Compared to ECG 05/07/2022 04:26:18 No significant changes Electronically Signed On 05-07-2022 19:48:22 CDT by Sarah Merlos M.D. [email or web address] of greenvilleBeijing Cloud Technologiesholzer health [email or web address] Trade/store/[id number]
--- NOTE | 2022-05-07 10:08 | PM.PN ---
Subjective Subjective: He reports he is feeling tired, but otherwise has no other complaints. Vitals/I&O/Wt Last Vital Signs Temp 98.9 F 05/07/22 08:00 Pulse 75 05/07/22 09:02 Resp 18 05/07/22 08:30 BP 106/69 05/07/22 09:02 Pulse Ox 92 05/07/22 08:30 O2 Del Method 05/07/22 08:30 O2 Flow Rate 2 05/07/22 04:00 05/06/22 05/07/22 05/07/22 22:59 06:59 14:59 Intake Total 1360.5 / 3815.5 Output Total 875 / 1175 300 / 1475 250 / 250 Balance 485.5 / 2640.5 -300 / 2340.5 -250 / -250 Weight last 48 hrs Weight 115.666 kg Physical Exam Narrative: Accompanied by at bedside Const: COMMON NORMALS: patient oriented x3 and alert GENERAL APPEARANCE: cooperative ORIENTATION/CONSCIOUSNESS: Yes awake HENMT: COMMON NORMALS: oropharynx normal Neck/C-Spine: COMMON NORMALS: no JVD Resp: COMMON NORMALS: normal respiratory effort and clear to auscultation bilaterally AUSCULTATION: clear to auscultation bilaterally Cardio: COMMON NORMALS: no JVD, regular rhythm, S1 normal heart sound present, S2 normal heart sound present and No murmurs present (Cardio) RHYTHM: regular rhythm HEART SOUNDS: S1 normal heart sound present and S2 normal heart sound present GI: COMMON NORMALS: Normal to inspection, nondistended, normoactive bowel sounds present, Soft to palpation and non-tender PALPATION: Yes Soft to palpation Back/Pelvis: OTHER: Brace in place Extremity: COMMON NORMALS: no joint enlargement and no pedal edema Neuro: COMMON NORMALS: patient oriented x3 and moves all extremities SENSORIUM/ORIENTATION: Yes alert Skin: COMMON NORMALS: no rashes or lesions noted GENERAL SKIN EXAM: no rashes or lesions noted Urinary Catheter Management: Kowalski Latex: Cath Placed During This Visit: yes, but has since been removed by the nurse Reason for Continuing Indwelling Catheter: Decision to DC Catheter Urinary Catheter Date of Insertion: 05/05/22 Urinary Catheter Time of Insertion: 09:25 Date Urinary Catheter Removed: 05/06/22 Time Urinary Catheter Discontinued: 10:14 Data : 05/07/22 01:25 05/07/22 01:25 A&P Assessment and plan (1) Status post lumbar spinal fusion: Discharging home today. Status: Acute (2) Anemia: Postoperative anemia. Hemoglobin down to 10. Please follow-up blood counts in office. Status: Acute (3) Low blood pressure reading: Blood pressure better today. Systolic 115. He overall feels tired, but otherwise is doing well. She tells me he normally takes furosemide at home unless he is having lower extremity swelling. Continue torsemide only as needed. Discussed with him to reduce Aldactone dose to 12.5 mg. Status: Acute (4) Hypomagnesemia: Provided prescription for replacement. Status: Acute (5) Hypertension: Chronically on Aldactone. Status: Chronic Qualifiers: Hypertension type: primary hypertension Qualified Code(s): I10 - Essential (primary) hypertension (6) Atherosclerotic heart disease of [place] coronary artery without angina pectoris: Medically managed, on aspirin therapy Status: Chronic Qualifiers: [place] vs. transplanted heart: [place] heart Qualified Code(s): I25.10 - Atherosclerotic heart disease of [place] coronary artery without angina pectoris (7) Congestive heart failure: Chronic diastolic by echocardiogram done earlier this year although has had evidence of systolic dysfunction in the past, not currently decompensated, clinically appears euvolemic Status: Chronic Qualifiers: Heart failure type: diastolic Heart failure chronicity: chronic Qualified Code(s): I50.32 - Chronic diastolic (congestive) heart failure (8) H/O cardiac radiofrequency ablation: For atrial fibrillation, x two Status: Chronic (9) Pacemaker: Status: Chronic (10) Presence of Watchman left atrial appendage closure device: Unable to be anticoagulated due to history of significant bleeding with anticoagulation in past Status: Chronic (11) Benign prostatic hyperplasia: Chronically on flomax with good symptom control; has to stand to urinate however Status: Chronic Qualifiers: Lower urinary tract symptom detail: weak urinary stream Lower urinary tract symptom presence: symptoms present Qualified Code(s): N40.1 - Benign prostatic hyperplasia with lower urinary tract symptoms; R39.12 - Poor urinary stream (12) Diabetes mellitus: Chronically on Ozempic Status: Chronic Qualifiers: Diabetes mellitus type: type 2 Diabetes mellitus ocean transportation intermediary insulin use: without alf use Diabetes mellitus complication status: with hyperglycemia Qualified Code(s): E11.65 - Type 2 diabetes mellitus with hyperglycemia (13) Asthma: Chronically on albuterol inhaler as needed, Advair, along with cetirizine, Singulair and Flonase Status: Chronic (14) 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 transplanted heart: [place] heart Congestive heart failure I50.32 Heart failure type: diastolic Heart failure chronicity: chronic H/O cardiac radiofrequency ablation Z98.890 Pacemaker Z95.0 Presence of Watchman left atrial appendage closure device Z95.818 Benign prostatic hyperplasia N40.1; R39.12 Lower urinary tract symptom detail: weak urinary stream Lower urinary tract symptom presence: symptoms present Diabetes mellitus E11.65 Diabetes mellitus type: type 2 Diabetes mellitus ocean transportation intermediary insulin use: without ocean transportation intermediary use Diabetes mellitus complication status: with hyperglycemia Asthma J45.909 Narcolepsy G47.419
[2022-05-07 11:12] LABS: Glucose Point of Care 113 mg/dL (70-110)
[2022-05-07 11:46] VITALS: PULSE 75; RESP 18; TEMP 37.2; O2SAT 92
--- NOTE | 2022-05-08 15:44 | PM.DCS ---
Discharge Providers Date of Admission: 05/05/22 12:58 Date of Discharge: May 07, 2022 Attending Provider at Admission: Mitesh Mancia DO Attending Provider at Discharge: Mitesh Mancia DO Primary Care Provider: Emil Oliveira DO Diagnoses at Discharge Discharge Diagnosis (1) Status post lumbar spinal fusion: Status: Acute (2) Anemia: Status: Acute (3) Low blood pressure reading: Status: Resolved (4) Hypomagnesemia: Status: Acute (5) Hypertension: Status: Chronic Qualifiers: Hypertension type: primary hypertension Qualified Code(s): I10 - Essential (primary) hypertension (6) Atherosclerotic heart disease of [place] coronary artery without angina pectoris: Status: Chronic Qualifiers: [place] vs. transplanted heart: [place] heart Qualified Code(s): I25.10 - Atherosclerotic heart disease of [place] coronary artery without angina pectoris (7) Congestive heart failure: Status: Chronic Qualifiers: Heart failure type: diastolic Heart failure chronicity: chronic Qualified Code(s): I50.32 - Chronic diastolic (congestive) heart failure Permanent problem details: Systolic and diastolic. EF of 34% on echocardiogram from 12/2020. EF of 60% on echocardiogram from 12/2021. (8) H/O cardiac radiofrequency ablation: Status: Chronic Permanent problem details: x 2 (9) Pacemaker: Status: Chronic (10) Presence of Watchman left atrial appendage closure device: Status: Chronic (11) Benign prostatic hyperplasia: Status: Chronic Qualifiers: Lower urinary tract symptom detail: weak urinary stream Lower urinary tract symptom presence: symptoms present Qualified Code(s): N40.1 - Benign prostatic hyperplasia with lower urinary tract symptoms; R39.12 - Poor urinary stream (12) Diabetes mellitus: Status: Chronic Qualifiers: Diabetes mellitus type: type 2 Diabetes mellitus penitentiary insulin use: without penitentiary use Diabetes mellitus complication status: with hyperglycemia Qualified Code(s): E11.65 - Type 2 diabetes mellitus with hyperglycemia (13) Asthma: Status: Chronic (14) Narcolepsy: Status: Chronic Reason for Visit Reason for Visit: L4-S1 PSF W/DECOMPRESSION L4/S1 Hospital Course Hospital Course uneventful Physical Exam Urinary Catheter Management: Kowalski Latex: Cath Placed During This Visit: yes, but has since been removed by the nurse Reason for Continuing Indwelling Catheter: Decision to DC Catheter Urinary Catheter Date of Insertion: 05/05/22 Urinary Catheter Time of Insertion: 09:25 Date Urinary Catheter Removed: 05/06/22 Time Urinary Catheter Discontinued: 10:14 Discharge Data Studies Completed and Pending Completed Studies During Hospitalization Category Date Time Status XR lumbar spine 2-3V* [id number] Routine Exams 05/05/22 12:11 Completed Radiology Impressions Lumbar Spine X-Ray 05/05/22 12:11 IMPRESSION: Images obtained for intraoperative purposes. Laboratory Results WBC 4.6 10^3/uL (4.0-10.0) 05/05/22 08:14 RBC 4.98 10^6/uL (4.1-5.3) 05/05/22 08:14 Hgb 10.0 g/dL (11.7-16.6) L 05/07/22 01:25 Hct 30.9 % (42.0-52.0) L 05/07/22 01:25 MCV 91.6 fl (80-94) 05/05/22 08:14 MCH 30.5 pg (28.0-34.0) 05/05/22 08:14 MCHC 33.3 g/dL (30.0-36.0) 05/05/22 08:14 RDW 13.2 % (12.1-15.1) 05/05/22 08:14 Plt Count 151 10^3/cmm (130-400) 05/05/22 08:14 MPV 9.9 fL (7.4-10.4) 05/05/22 08:14 Neut % (Auto) 64.5 % 05/05/22 08:14 Lymph % (Auto) 25.2 % 05/05/22 08:14 [place] % (Auto) 7.3 % 05/05/22 08:14 Eos % (Auto) 2.2 % 05/05/22 08:14 Baso % (Auto) 0.6 % 05/05/22 08:14 Neut # (Auto) 2.99 10^3/uL (1.8-7.7) 05/05/22 08:14 Lymph # (Auto) 1.2 10^3/uL (0.8-4.8) 05/05/22 08:14 [place] # (Auto) 0.3 10^3/uL (0.2-0.9) 05/05/22 08:14 Eos # (Auto) 0.1 10^3/uL (0.0-0.8) 05/05/22 08:14 Baso # (Auto) 0.0 10^3/uL (0.0-0.1) 05/05/22 08:14 Nucleated RBC % (auto) 0 % 05/05/22 08:14 Nucleated RBCs # 0.0 /100WBC 05/05/22 08:14 Sodium 135 mmol/L (136-145) L 05/07/22 01:25 Potassium 4.0 mmol/L (3.5-5.1) 05/07/22 01:25 Chloride 103 mmol/L (98-107) 05/07/22 01:25 Carbon Dioxide 24 mmol/L (22-29) 05/07/22 01:25 Anion Gap 12.0 (5-19) 05/07/22 01:25 BUN 11 mg/dL (8-23) 05/07/22 01:25 Creatinine 0.9 mg/dL (0.7-1.2) 05/07/22 01:25 GFR Calculation Not Reportable 05/07/22 01:25 Glucose 122 mg/dL (65-115) H 05/07/22 01:25 POC Glucose 113 mg/dL (70-110) H 05/07/22 10:42 Calculated Osmolality 281 mOsm/kg (285-295) L 05/07/22 01:25 Calcium 7.8 mg/dL (8.5-10.5) L 05/07/22 01:25 Magnesium 1.5 mg/dL (1.7-2.3) L 05/07/22 01:25 Magnesium Cancelled 05/07/22 01:25 Troponin T Baseline 19 ng/L (0-15) H 05/06/22 23:35 Troponin T 120 Minute 19.30 ng/L (0-15) H 05/07/22 01:25 Delta Troponin T 0.30 ABS# (0-10) 05/07/22 01:25 Troponin T Hi Sens 6Hr 17.05 ng/L (0-15) H 05/07/22 04:55 Troponin T Hi Sens 6Hr Delta -1.95 ng/L (0-12) L 05/07/22 04:55 NT-Pro-B Natriuret Pep 884 pg/mL (0-450) H 05/07/22 01:25 NT-Pro-B Natriuret Pep Cancelled 05/07/22 01:25 Blood Type A Negative 05/05/22 08:14 Rho(D) Type Negative 05/05/22 08:14 Antibody Screen Negative 05/05/22 08:14 Vitals Last Vital Signs Temp 98.9 F 05/07/22 11:46 Pulse 75 05/07/22 11:46 Resp 18 05/07/22 11:46 BP 106/69 05/07/22 09:02 Pulse Ox 92 05/07/22 11:46 O2 Del Method 05/07/22 08:30 O2 Flow Rate 2 05/07/22 04:00 Discharge Plan Discharge Patient Disposition: Home Condition: Stable Prescriptions: New magnesium 250 mg tablet 250 mg PO DAILY Qty: 14 0RF Continued cetirizine [Zyrtec] 10 mg tablet 10 mg PO DAILY PRN (Reason: allergy symptoms) Qty: 20 0RF montelukast [Singulair] 10 mg tablet 10 mg PO DAILY Qty: 30 3RF fluticasone propion-salmeterol [Advair Diskus] 250-50 mcg/dose blister with device 2 inh inhalation BID Qty: 120 3RF fluticasone propionate [Flonase Allergy Relief] 50 mcg/actuation spray,suspension 1 spray intranasal BID Qty: 100 3RF Rx Instructions: administer into each nostril albuterol sulfate 2.5 mg /3 mL (0.083 %) solution for nebulization 2.5 mg continuous nebulization QID PRN (Reason: shortness of breath or wheezing) acetaminophen [Tylenol Extra Strength] 500 mg tablet 1,000 mg PO QID PRN (Reason: Pain) aspirin [Adult Aspirin Regimen] 81 mg tablet,delayed release (DR/EC) 81 mg PO DAILY ropinirole 1 mg tablet 1 mg PO BEDTIME (DME) Bone Growth Stimulator E0748 See Rx Instructions .Route .MEDSUPPLY Qty: 1 0RF Rx Instructions: As directed levothyroxine [Synthroid] 137 mcg Tablet 137 mcg PO DAILY@04 modafinil 200 mg Tablet 200 mg PO DAILY@06 pantoprazole 40 mg Tablet,Delayed Release (Dr/Ec) 40 mg PO BID@06,18 cholecalciferol (vitamin D3) [Vitamin D3] 50 mcg (2,000 unit) Capsule 2,000 unit PO DAILY@06 tamsulosin 0.4 mg capsule 0.4 mg PO DAILY potassium chloride [Klor-Con M20] 20 mEq Tablet,Er Particles/Crystals 20 meq PO DAILY Qty: 30 0RF sennosides [Senna Lax] 8.6 mg tablet 8.6 mg PO BEDTIME hydrocodone-acetaminophen 5-325 mg tablet 1 - 2 tab PO Q5H PRN (Reason: pain) Qty: 30 0RF Ozempic 1 mg/dose (4 mg/3 mL) Pen Injector 1 mg SUBCUT Q7D Changed furosemide 40 mg tablet 40 mg PO DAILY PRN (Reason: Edema) Qty: 1 0RF spironolactone 25 mg tablet 12.5 mg PO DAILY 30 Days Qty: 30 5RF No Action hydrocodone-acetaminophen 10-325 mg tablet 1 - 2 tab PO Q4H PRN (Reason: Moderate To Severe Pain) 5 Days Qty: 40 0RF Discharge Orders: Discharge Order (Routine); Ordered 05/07/22 Ordered By: Jose Martin Remy Referrals: Mitesh Mancia DO [Physician] - 05/15/22 10:00 am Emil Oliveira DO [Primary Care Provider] - 05/14/22 11:00 am Discharge Diet: Advance as tolerated Discharge Activity: Limit activity as instructed Patient Instructions: Hydrocodone/Acetaminophen (By mouth), Hypomagnesemia (GEN), Anemia (GEN), Lumbar Spinal Fusion (GEN), Opioid Safety Activity Restrictions/Additional Instructions: Please follow-up blood counts in office with orthopedics and your primary doctor for anemia. Thank you for choosing [facility] for your care! The following is a list of instructions, from your provider, to follow upon your discharge to ensure you have the optimal recovery from your recent injury or surgery. Follow-up care is a [place] part of your treatment and safety. Be sure to make and go to all appointments and call your doctor if you are having problems. If you do not already have a follow-up appointment made, call Dr. Mancia's] office in the next 1-3 days to make follow up appointment for 1 weeks at [phone]. It is also a good idea to know your test results and keep a list of the medicines you take. Medications will be prescribed for you at your provider's discretion. These medications are to be used as instructed; if they are taken more often that prescribed they will not be refilled early and in most cases will not be refilled at all. > When a refill is needed, you should contact shirley jeronimo 2-3 business days before your prescription runs out. Medications will NOT be refilled by environmental remediation engineer providers after hours! > Many pain medications contain Tylenol (Acetaminophen). Do not consume more than 4,000 mg of Tylenol per day in total with any combination of medications. > Pain medications can cause constipation. Please use an over the counter stool softener as directed, while taking pain medications. Consult your local pharmacist with questions or recommendations on stool softeners. If constipation persists, contact our office or your primary care provider. > While under our care, you are not to receive pain medications or other controlled substances from any other provider unless our office is notified and approves. Any attempts to do so will result in refusal to prescribe any further pain medications and possible dismissal from our practice. ? Walking is essential for the healing process after surgery. We would like you to slowly advance your walking. This should be done on relatively flat clear ground (inside or out) or can be done on a treadmill. Remember this goal does not have to happen all at once, slowly increase your distance and duration. This can be broken into more more than one walk per day as tolerated. Patients who walk as directed after surgery rarely require Physical Therapy. In the unlikely event this issue arises your provider will direct hospital staff to make the appropriate arrangements. ? No lifting over 5 pounds {a gallon of milk) or bending/twisting until further notice. Each of these activities places an unnecessary amount of stress onto the body and can impede the delicate healing process. > Instead of bending at the waist, keep your back straight and bend at the knees. > Instead of twisting your torso, keep your back straight and turn your entire body with your feet. ? You may sleep in any position which makes you comfortable. Many patients find comfort sleeping in a reclining chair. It is not abnormal to have difficulty sleeping for the first several weeks following your surgery. We recommend trying Benadry! or Tylenol PM as directed to help with your sleeping difficulties. Both medications are over the counter and available without prescription. ? NO SMOKING!!! Smoking dramatically increases the probability of developing postoperative wound infections. ? Common complaints after lumbar and/or thoracic spine surgery include, but are not limited to: numbness and/or tingling in the legs, pain around the incision and surrounding tissues, muscle spasms, or stiffness of the middle to low back. Contact our office if these symptoms persist or if an acute change occurs. ? No driving for the first 3-5days, and not while taking narcotics until seen at your follow-up appointment and cleared. There are no restrictions for riding on short trips, however if you take a longer trip, arrangements should be made to make regular stops to get out of the vehicle and stretch . ? Swelling is an unfortunate event that will take place with any surgery and is the primary source of your postoperative discomfort. While walking and regular approved activities helps control inflammation, there are additional steps you can take to minimize swelling. > Place ice over the surgical site and surrounding tissue for twenty minutes, followed by applying a low/medium heat (heating pad) for an additional twenty minutes every 1-2 hours as needed for painrelief. > You may use of over the counter anti-inflammatory medications (Ibuprofen, Motrin, Aleve, Advil, etc) as directed on the package label. These types of medicines will significantly reduce the amount of discomfort you experience after surgery from swelling. It should be noted that if you have and allergy to any of these medications, or a history of ulcers or kidney disease you should consult you primary care provider prior to starting these medications. Discharge Attestations Time Spent in Discharge Care*: less than 30 min Quality Metrics Clinical Quality Measures [ No reported AMI, CVA or VTE this stay] Coding Level of Care Code Acute [facility] note Diagnoses Status post lumbar spinal fusion Z98.1 Anemia D64.9 Low blood pressure reading R03.1 Hypomagnesemia E83.42 Hypertension I10 Hypertension type: primary hypertension Atherosclerotic heart disease of [place] coronary artery without angina pectoris I25.10 [place] vs. transplanted heart: [place] heart Congestive heart failure I50.32 Heart failure type: diastolic Heart failure chronicity: chronic H/O cardiac radiofrequency ablation Z98.890 Pacemaker Z95.0 Presence of Watchman left atrial appendage closure device Z95.818 Benign prostatic hyperplasia N40.1; R39.12 Lower urinary tract symptom detail: weak urinary stream Lower urinary tract symptom presence: symptoms present Diabetes mellitus E11.65 Diabetes mellitus type: type 2 Diabetes mellitus window shade ring coverer insulin use: without window shade ring coverer use Diabetes mellitus complication status: with hyperglycemia Asthma J45.909 Narcolepsy G47.419
== END 2022-05-07 11:25 | disposition home or self-care (01) | DRG 460 ==
LOC: MEDSURG 13:01
PROVIDERS: Anesthesiology; Hospitalist; Internal Medicine; Physician Assistant; Admitting Provider Orthopaedic Surgery; PCP Emergency Medicine Emergency Medical Services; Visit Provider Orthopaedic Surgery
PROC: 0SG307J Fusion of Lumbosacral Joint with Autologous Tissue Substitute, Posterior Approach, Anterior Column, Open Approach (ICD-10-PCS; principal; 2022-05-05 08:30)
PROC: 0SG307J Fusion of Lumbosacral Joint with Autologous Tissue Substitute, Posterior Approach, Anterior Column, Open Approach (ICD-10-PCS; CPT 63005; 2022-05-05 08:30)
DX: M43.17 Spondylolisthesis, lumbosacral region (principal); I50.32 Chronic diastolic (congestive) heart failure; D62 Acute posthemorrhagic anemia; M48.07 Spinal stenosis, lumbosacral region; I48.91 Unspecified atrial fibrillation; N40.1 Benign prostatic hyperplasia with lower urinary tract symptoms; R39.12 Poor urinary stream; I11.0 Hypertensive heart disease with heart failure; Z86.16 Personal history of COVID-19; E78.5 Hyperlipidemia, unspecified; E03.9 Hypothyroidism, unspecified; G47.33 Obstructive sleep apnea (adult) (pediatric); Z95.0 Presence of cardiac pacemaker; J45.909 Unspecified asthma, uncomplicated; I25.10 Atherosclerotic heart disease of native coronary artery without angina pectoris; Z79.891 Long term (current) use of opiate analgesic; Z79.82 Long term (current) use of aspirin; Z79.51 Long term (current) use of inhaled steroids; E83.42 Hypomagnesemia; G47.419 Narcolepsy without cataplexy; E11.21 Type 2 diabetes mellitus with diabetic nephropathy; E11.65 Type 2 diabetes mellitus with hyperglycemia; E11.51 Type 2 diabetes mellitus with diabetic peripheral angiopathy without gangrene
CPT/HCPCS: 36415; 36416; 51702; 72100; 76000; 80048; 82962; 83735; 83880; 84484; 85014; 85018; 85025; 86850; 86900; 93005; 94760; 97116; 97162; 97530; C1713; J0330; J1100; J1170; J1644; J2370; J2405; J3010; J3370; J3490; J7030; J7040

== ENCOUNTER → 2022-05-15 09:48 | Outpatient (BNVA) | payer OTHER, SELFPAY | PROVIDERS: PCP Emergency Medicine Emergency Medical Services; Visit Provider Orthopaedic Surgery | DX: Z47.89 Encounter for other orthopedic aftercare (principal); Z98.1 Arthrodesis status | CPT/HCPCS: 99024 ==

== ENCOUNTER → 2022-05-27 08:48 | Outpatient (BNVA) | payer OTHER, SELFPAY | PROVIDERS: PCP Emergency Medicine Emergency Medical Services; Visit Provider Student in an Organized Health Care Education/Training Program | DX: M65.331 Trigger finger, right middle finger (principal); M19.041 Primary osteoarthritis, right hand; M19.042 Primary osteoarthritis, left hand; M65.342 Trigger finger, left ring finger; M72.0 Palmar fascial fibromatosis [Dupuytren] | CPT/HCPCS: 20600; 73130; 99204; 99214 ==

== ENCOUNTER → 2022-05-29 14:06 | Outpatient (BNVA) | payer OTHER, SELFPAY | PROVIDERS: PCP Emergency Medicine Emergency Medical Services; Visit Provider Orthopaedic Surgery | DX: Z47.89 Encounter for other orthopedic aftercare (principal); Z98.1 Arthrodesis status | CPT/HCPCS: 72100; 99024 ==

== ENCOUNTER → 2022-06-11 08:25 | Outpatient (BNVA) | payer OTHER, SELFPAY | PROVIDERS: PCP Emergency Medicine Emergency Medical Services; Visit Provider Surgery | DX: R13.10 Dysphagia, unspecified (principal); Z86.010 Personal history of colon polyps | CPT/HCPCS: 99213 ==

== ENCOUNTER 2022-06-12 08:39 | Day surgery (SDC) | payer OTHER, SELFPAY ==
[2022-06-11 13:11] VITALS: BMI 38.4
[2022-06-12 09:15] VITALS: BP 112/69; PULSE 77; RESP 18; TEMP 36.1; O2SAT 94
[2022-06-12] MEDS: sodium chloride 0.9% 1,000 ML 30 ML IV (09:36)
--- NOTE | 2022-06-12 09:48 | ANES.PREANE2 ---
Pre-Anesthetic Assessment Height/Weight: Height 1.75 m Weight 117.934 kg Temp Pulse Resp BP Pulse Ox O2 Del Method 97 F L 77 18 112/69 94 06/12/22 09:15 06/12/22 09:15 06/12/22 09:15 06/12/22 09:15 06/12/22 09:15 06/12/22 09:15 Preop Diagnosis: Dysphagia, colon polyps, bleeding per rectum Operation Date: 06/12/22 09:45 Proposed Procedures p EGD(Not Applicable) - Kev Curran MD s Colonoscopy(Not Applicable) - Kev Curran MD Familial anesthetic complications: None Was Beta Ingrid taken within 24 hours: N/A Was Clonidine taken within 24 hours: N/A Last intake: Intake Last Liquid Date 06/11/22 Last Liquid Time 00:00 Last Solid Date 06/11/22 Last Solid Time 09:00 Social No alcohol and No tobacco Exam alert, oriented x 3, clear to auscultation bilaterally and regular rate & rhythm Airway Mallampati: Class IV Dentition: false Comments: Comments: large tongue Pulmonary Sleep Apnea CV/HEM Atrial Fibrillation (watchman), Coronary Artery Disease (medically treated, no intervention), Congestive Heart Failure (most recent ef 63%), Hypertension and Peripheral Vascular Disease Metabolic Diabetes Mellitus, Hyperlipidemia, Morbid Obesity and Thyroid Disease Neuropsych narcoleopsy Anesthetic Plan ASA status: 3 Risk of > 500 ml blood loss (7ml/kg in children): No Medications/Allergies Home Medications Medication Instructions Recorded Confirmed Last Taken Type cholecalciferol (vitamin D3) 50 2,000 unit PO DAILY@12/11/19 06/12/22 06/11/22 History mcg (2,000 unit) capsule (Vitamin D3) levothyroxine 137 mcg tablet 137 mcg PO DAILY@04 12/11/19 06/12/22 06/11/22 History (Synthroid) modafinil 200 mg tablet 200 mg PO DAILY@12/11/19 06/12/22 12/12/20 History pantoprazole 40 mg tablet,delayed 40 mg PO BID@ PRN Heartburn 12/11/19 06/12/22 06/11/22 History release tamsulosin 0.4 mg capsule 0.4 mg PO DAILY 07/17/20 06/12/22 06/11/22 History acetaminophen 500 mg tablet 1,000 mg PO QID PRN Pain 12/12/20 06/12/22 06/11/22 History (Tylenol Extra Strength) albuterol sulfate 2.5 mg continuous nebulization QID 12/12/20 06/12/22 12/12/20 History PRN shortness of breath or wheezing aspirin 81 mg tablet,delayed 81 mg PO DAILY 12/27/20 06/12/22 06/11/22 History release (Adult Aspirin Regimen) cetirizine 10 mg tablet (Zyrtec) 10 mg PO DAILY PRN allergy 01/09/21 06/12/22 06/11/22 Rx symptoms #20 tabs montelukast 10 mg tablet 10 mg PO DAILY #30 tabs 01/09/21 06/12/22 06/11/22 Rx (Singulair) ropinirole 1 mg tablet 1 mg PO BEDTIME 12/25/21 06/12/22 06/11/22 History sennosides 8.6 mg tablet (Senna 8.6 mg PO BEDTIME 12/29/21 06/12/22 06/11/22 History Lax) Bone Growth Stimulator E0748 #1 ea 05/05/22 06/11/22 Unknown Rx semaglutide 1 mg/dose (4 mg/3 mL) 1 mg SUBCUT Q7D 05/06/22 06/12/22 06/05/22 History subcutaneous pen injector (Ozempic) furosemide 40 mg tablet 40 mg PO DAILY PRN Edema #1 tab 05/07/22 06/12/22 Unknown Rx spironolactone 25 mg tablet 12.5 mg PO DAILY 30 days #30 tabs 05/07/22 06/12/22 06/11/22 Rx fluticasone 250 mcg-salmeterol 50 2 inh inhalation BID PRN Shortness 06/11/22 06/12/22 Unknown History mcg/dose blistr powdr for Of Breath inhalation (Advair Diskus) fluticasone propionate 50 1 spray intranasal BID PRN 06/11/22 06/11/22 Unknown History mcg/actuation nasal Congestion spray,suspension (Flonase Allergy Relief) hydrocodone 10 mg-acetaminophen 1 - 2 tab PO Q4H PRN Moderate To 06/11/22 06/12/22 06/11/22 History 325 mg tablet Severe Pain potassium chloride 20 mEq 20 meq PO DAILY PRN lasix 06/11/22 06/12/22 Unknown History tablet,extended release(part/cryst) (Klor-Con M) Allergies Allergy/AdvReac Type Severity Reaction Status Date / Time apixaban [From Eliquis] Allergy Severe Unknown Verified 06/11/22 13:04 ibuprofen [From Motrin] Allergy renal Verified 06/11/22 13:04 failure rivaroxaban [From Xarelto] Allergy bleeding Verified 06/11/22 13:04 tolmetin [From Tolectin] Allergy ALGY-Rash Verified 06/11/22 13:04 NSAIDS (Non-Steroidal AdvReac RENAL Verified 06/11/22 13:04 Anti-Inflamma COMPICATIONS Current Medications Generic Name Dose Route Start Last Admin Trade Name Freq PRN Reason Stop Dose Admin Sodium Chloride 1,000 mls @ 30 mls/hr 06/12/22 09:00 06/12/22 09:36 Sodium Chloride 0.9% IV 30 mls/hr .Q24H ASHTYN Administration PFSH Anesthesia Medical History Abnormal cardiovascular stress test Asthma Atherosclerotic heart disease of [place] coronary artery without angina pectoris Atrial fibrillation status post cardioversion Benign prostatic hyperplasia Cerebral arterial aneurysm Congestive heart failure Systolic and diastolic. EF of 34% on echocardiogram from 12/2020. EF of 60% on echocardiogram from 12/2021. COVID-19 Diabetes mellitus Dupuytren's disease of palm of left hand Dyslipidemia H/O diabetic nephropathy History of left heart catheterization (LHC) 12/2020 60 to 70% diffuse disease in the first diagonal branch of the left anterior descending artery. He had around 40 to 50% lesions in the distal left and descending artery. Minimal intimal irregularities in the RCA and the left circumflex artery. Based on angiographic findings, he was treated medically. Hypertension Hypothyroidism Intermittent atrial fibrillation Narcolepsy SHER (obstructive sleep apnea) Osteoarthritis of hands, bilateral Peripheral arterial disease Primary osteoarthritis of knees, bilateral Right fibular fracture Shortness of breath on exertion Spontaneous hemorrhage This patient bled into the right calf muscle and had hematuria with Xarelto Trigger finger, left ring finger Trigger finger, right middle finger Surgical History H/O cardiac radiofrequency ablation x 2 History of cataract surgery Bilateral History of knee surgery Bilateral arthroscopy (multiple on each side) History of umbilical hernia repair (~12/2021) Pacemaker Presence of Watchman left atrial appendage closure device S/P rotator cuff repair Left S/P spinal fusion Family History Other CAD (coronary artery disease) Cancer Hypertension Stroke Social History Smoking and tobacco status: never smoked Second hand smoke exposure: Yes Alcohol intake: never Lives independently: Yes Household members: spouse and children Housing: House Marital status: service: Yes 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
--- NOTE | 2022-06-12 10:15 | W.PM.OPSUD ---
Surgery/Procedure H&P Update DATE OF PROCEDURE: June 12, 2022 DATE H&P PERFORMED: 06/11/22 H&P UPDATE INFORMATION: I have reviewed H&P completed within last 30 days, I have examined patient prior to procedure and No changes to prior documentation PREOP DIAGNOSIS: Dysphagia, colon polyps, bleeding per rectum PRIMARY INDICATION FOR PROCEDURE: The same PLANNED PROCEDURE: Operation Date: 06/12/22 09:45 Proposed Procedures p EGD(Not Applicable) - Kev Curran MD s Colonoscopy(Not Applicable) - Kev Curran MD
[2022-06-12 10:52] VITALS: BP 100/69; PULSE 75; RESP 16; TEMP 36.4; O2SAT 100
== END 2022-06-12 11:25 | disposition home or self-care (01) ==
PROVIDERS: PCP Emergency Medicine Emergency Medical Services; Visit Provider Surgery
PROC: 0DJ08ZZ Inspection of Upper Intestinal Tract, Via Natural or Artificial Opening Endoscopic (ICD-10-PCS; CPT 43235; principal; 2022-06-12 09:45)
PROC: 0DJD8ZZ Inspection of Lower Intestinal Tract, Via Natural or Artificial Opening Endoscopic (ICD-10-PCS; CPT 45378; 2022-06-12 09:45)
DX: Z86.010 Personal history of colon polyps (principal); R13.10 Dysphagia, unspecified; K29.50 Unspecified chronic gastritis without bleeding; B96.81 Helicobacter pylori [H. pylori] as the cause of diseases classified elsewhere; D12.0 Benign neoplasm of cecum; K57.30 Diverticulosis of large intestine without perforation or abscess without bleeding; K21.00 Gastro-esophageal reflux disease with esophagitis, without bleeding; K29.80 Duodenitis without bleeding; G47.30 Sleep apnea, unspecified; I48.91 Unspecified atrial fibrillation; I25.10 Atherosclerotic heart disease of native coronary artery without angina pectoris; I11.0 Hypertensive heart disease with heart failure; I50.9 Heart failure, unspecified; E11.9 Type 2 diabetes mellitus without complications; E78.5 Hyperlipidemia, unspecified; E66.01 Morbid (severe) obesity due to excess calories; Z68.38 Body mass index [BMI] 38.0-38.9, adult; Z79.82 Long term (current) use of aspirin; Z86.16 Personal history of COVID-19; G47.33 Obstructive sleep apnea (adult) (pediatric)
CPT/HCPCS: 43239; 45385; 88305; 88342; J2704; J3490; J7030

== ENCOUNTER → 2022-06-19 08:21 | Outpatient (BNVA) | payer OTHER, SELFPAY | PROVIDERS: PCP Emergency Medicine Emergency Medical Services; Visit Provider Orthopaedic Surgery | DX: Z47.89 Encounter for other orthopedic aftercare (principal); Z98.1 Arthrodesis status | CPT/HCPCS: 72100; 99024 ==

== ENCOUNTER → 2022-06-26 16:11 | Outpatient (BNVA) | payer OTHER, SELFPAY | PROVIDERS: PCP Emergency Medicine Emergency Medical Services; Visit Provider Surgery | DX: Z09 Encounter for follow-up examination after completed treatment for conditions other than malignant neoplasm (principal); Z86.010 Personal history of colon polyps; R13.10 Dysphagia, unspecified; K57.31 Diverticulosis of large intestine without perforation or abscess with bleeding | CPT/HCPCS: 99212 ==

== ENCOUNTER → 2022-07-24 08:12 | Outpatient (BNVA) | payer OTHER, SELFPAY | PROVIDERS: PCP Emergency Medicine Emergency Medical Services; Visit Provider Orthopaedic Surgery | DX: Z47.89 Encounter for other orthopedic aftercare (principal); Z98.1 Arthrodesis status; M47.816 Spondylosis without myelopathy or radiculopathy, lumbar region; M81.0 Age-related osteoporosis without current pathological fracture; M41.26 Other idiopathic scoliosis, lumbar region; M41.9 Scoliosis, unspecified | CPT/HCPCS: 72100; 99024 ==

== ENCOUNTER 2022-07-29 04:41 | Emergency (ER) | payer OTHER, SELFPAY ==
[2022-07-29 04:42] VITALS: BP 161/99; PULSE 80; RESP 18; TEMP 36.6; O2SAT 94; BMI 37.9
--- NOTE | 2022-07-29 04:46 | W.ED.EXTPRO ---
HPI - Extremity Problem General: Chief complaint: Extremity Injury, Lower Stated complaint: lower left extremity pain Source: patient and EMS Mode of arrival: EMS Limitations: no limitations History of Present Illness: 76-year-old male states he had a history of gout he states has been having left great toe pain throughout the day along some swelling at the proximal joint. He states the pain is sharp in nature and much worse with any type of thing touching it or walking. He rates the pain a 9 out of 10 currently he denies any fever denies any injuries had some slight right knee pain. He states this is feels like his gout previously. Associated symptoms: Deny chest pain, fever(s) or rash Review of Systems Const: Denies: fever(s), chills, body aches or change in appetite Eyes: Denies: blurry vision or eye discomfort ENMT: Denies: throat pain or dental pain Card: Denies: chest pain Resp: Denies: dyspnea GI: Denies: abdominal pain, nausea, vomiting or diarrhea : Denies: dysuria Musc: Reports: extremity pain Skin/Breast: Denies: rash Neuro: Denies: headache(s) Psych: Denies: depression [place]/Lymph: Denies: easy bruising All/Imm: Denies: urticaria PFSH ED PFSH: Medical History Abnormal cardiovascular stress test Asthma Atherosclerotic heart disease of [place] coronary artery without angina pectoris Atrial fibrillation status post cardioversion Benign prostatic hyperplasia Cerebral arterial aneurysm Congestive heart failure Systolic and diastolic. EF of 34% on echocardiogram from 12/2020. EF of 60% on echocardiogram from 12/2021. COVID-19 Diabetes mellitus Dupuytren's disease of palm of left hand Dyslipidemia H/O diabetic nephropathy History of left heart catheterization (LHC) 12/2020 60 to 70% diffuse disease in the first diagonal branch of the left anterior descending artery. He had around 40 to 50% lesions in the distal left and descending artery. Minimal intimal irregularities in the RCA and the left circumflex artery. Based on angiographic findings, he was treated medically. Hypertension Hypothyroidism Intermittent atrial fibrillation Narcolepsy SHER (obstructive sleep apnea) Osteoarthritis of hands, bilateral Peripheral arterial disease Primary osteoarthritis of knees, bilateral Right fibular fracture Shortness of breath on exertion Spontaneous hemorrhage This patient bled into the right calf muscle and had hematuria with Xarelto Trigger finger, left ring finger Trigger finger, right middle finger Surgical History H/O cardiac radiofrequency ablation x 2 History of cataract surgery Bilateral History of knee surgery Bilateral arthroscopy (multiple on each side) History of umbilical hernia repair (~12/2021) Pacemaker Presence of Watchman left atrial appendage closure device S/P rotator cuff repair Left S/P spinal fusion Family History Other CAD (coronary artery disease) Cancer Hypertension Stroke Social History Smoking and tobacco status: never smoked Second hand smoke exposure: Yes Alcohol intake: never Lives independently: Yes Household members: spouse and children Housing: House Marital status: service: Yes 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 Discharge Plan Discharge Patient Disposition: Home Clinical Impression: Gout Qualifiers: Gout site: toe Gout etiology: unspecified cause Chronicity: acute Laterality: left Qualified Code(s): M10.9 - Gout, unspecified Condition: Stable Prescriptions: New hydrocodone-acetaminophen 5-325 mg tablet 1 tab PO Q6H PRN (Reason: pain) Qty: 14 0RF prednisone 50 mg tablet 50 mg PO DAILY Qty: 5 0RF No Action cetirizine [Zyrtec] 10 mg tablet 10 mg PO DAILY PRN (Reason: allergy symptoms) Qty: 20 0RF montelukast [Singulair] 10 mg tablet 10 mg PO DAILY Qty: 30 3RF albuterol sulfate 2.5 mg /3 mL (0.083 %) solution for nebulization 2.5 mg continuous nebulization QID PRN (Reason: shortness of breath or wheezing) acetaminophen [Tylenol Extra Strength] 500 mg tablet 1,000 mg PO QID PRN (Reason: Pain) aspirin [Adult Aspirin Regimen] 81 mg tablet,delayed release (DR/EC) 81 mg PO DAILY Hold Instructions: Resume on 06/17/22. ropinirole 1 mg tablet 1 mg PO BEDTIME hydrocodone-acetaminophen 10-325 mg tablet 1 - 2 tab PO Q4H PRN (Reason: Moderate To Severe Pain) 7 Days Qty: 40 0RF clarithromycin 500 mg tablet 500 mg PO BID 14 Days Qty: 28 0RF pantoprazole 40 mg tablet,delayed release (DR/EC) 40 mg PO BID@06,18 90 Days Qty: 180 0RF amoxicillin 500 mg tablet 1,000 mg PO BID 14 Days Qty: 56 0RF (DME) Bone Growth Stimulator E0748 See Rx Instructions .Route .MEDSUPPLY Qty: 1 0RF Rx Instructions: As directed levothyroxine [Synthroid] 137 mcg Tablet 137 mcg PO DAILY@04 modafinil 200 mg Tablet 200 mg PO DAILY@06 cholecalciferol (vitamin D3) [Vitamin D3] 50 mcg (2,000 unit) Capsule 2,000 unit PO DAILY@06 tamsulosin 0.4 mg capsule 0.4 mg PO DAILY sennosides [Senna Lax] 8.6 mg tablet 8.6 mg PO BEDTIME Ozempic 1 mg/dose (4 mg/3 mL) Pen Injector 1 mg SUBCUT Q7D furosemide 40 mg tablet 40 mg PO DAILY PRN (Reason: Edema) Qty: 1 0RF spironolactone 25 mg tablet 12.5 mg PO DAILY 30 Days Qty: 30 5RF fluticasone propion-salmeterol [Advair Diskus] 250-50 mcg/dose blister with device 2 inh inhalation BID PRN (Reason: Shortness Of Breath) potassium chloride [Klor-Con M20] 20 mEq tablet,ER particles/crystals 20 meq PO DAILY PRN (Reason: lasix) Flonase Allergy Relief 50 mcg/actuation spray,suspension 1 spray intranasal BID PRN (Reason: Congestion) Rx Instructions: administer into each nostril Discharge Orders: Discharge ED (Routine); Ordered 07/29/22 Ordered By: Lakeshia Paula Referrals: Emil Oliveira, [Primary Care Provider] - Discharge Diet: Advance as tolerated Discharge Activity: Resume usual activity Patient Instructions: Gout (ED) Coding Level of Care Code ED [place] Specialist for Matt Rocha
[2022-07-29] MEDS: HYDROcodone-acetaminophen 7.5-325 mg Tablet 1 TAB PO (04:53)
[2022-07-29] MEDS: predniSONE 20 mg Tablet 60 MG PO (04:56)
[2022-07-29 05:10] VITALS: RESP 18
[2022-07-29] MEDS: morphine 4 mg/mL SDV 1 mL IM (05:10)
[2022-07-29 05:36] VITALS: RESP 18
== END 2022-07-29 05:37 | disposition home or self-care (01) ==
LOC: ER 04:59
PROVIDERS: Emergency Provider Emergency Medicine; PCP Emergency Medicine Emergency Medical Services
DX: M10.9 Gout, unspecified (principal)
CPT/HCPCS: 96372; 99284; J2270; J7512

== ENCOUNTER → 2022-10-30 13:22 | Outpatient (BNVA) | payer OTHER, SELFPAY | PROVIDERS: PCP Emergency Medicine Emergency Medical Services; Visit Provider Orthopaedic Surgery | DX: M43.17 Spondylolisthesis, lumbosacral region (principal); M47.815 Spondylosis without myelopathy or radiculopathy, thoracolumbar region; M41.9 Scoliosis, unspecified; Z98.1 Arthrodesis status | CPT/HCPCS: 72100; 99214 ==

== ENCOUNTER → 2023-07-22 09:25 | Outpatient (BNVA) | payer OTHER, SELFPAY | PROVIDERS: PCP Emergency Medicine Emergency Medical Services; Visit Provider Orthopaedic Surgery | DX: M54.50 Low back pain, unspecified (principal); M43.17 Spondylolisthesis, lumbosacral region | CPT/HCPCS: 72100; 99214 ==

== ENCOUNTER 2023-08-06 08:03 | Outpatient (CLI) | payer OTHER, SELFPAY ==
--- NOTE | 2023-08-06 08:30 | CT_ITS ---
WS: [id number] CT MYELOGRAM LUMBAR SPINE HISTORY: lumbar pain TECHNIQUE: Contiguous 2.5 mm axial imaging performed from T12 through the mid sacral level. Bone and soft tissue windows reviewed. Sagittal and coronal reformats are submitted and reviewed. DLP: 1353.[address] scans at [facility] use at least one of these dose optimization techniques: automated e xposure control; mA and/or kV adjustment per patient size (includes targeted exams where dose is matc hed to clinical indication); or iterative reconstruction. COMPARISON: 02/11/[address], noncontrast Mild increase in the lumbar lordosis. L5 anterolisthesis by 12 mm is increased from 8 mm on the prior study. L4 anterolisthesis by 5 mm is new. L1 retrolisthesis by 2 mm. Disc spaces are all narrowed gr eatest at L5-S1. At L5-S1 there is bone upon bone. Vacuum disc phenomenon at T12-L1, L1-2 and L3-4. R IGHT curvature of the lumbar spine. Prior lumbosacral fusion. There is posterior fusion hardware from L2-S2. Sacral screws extend across the SI joint. Lucency surrounding the RIGHT pedicle screw. No sig nificant lucency surrounding the remaining fusion screws. T12-L1: Diffuse annular disc bulging and osteophytic ridging. No stenosis. L1-L2: Moderate osteophytic ridging with annular disc bulging. Disc is asymmetric to the LEFT. Very m ild encroachment upon the LEFT subarticular recess. L2-L3: Mild annular disc bulging. No stenosis. L3-L4: Mild annular disc bulging with osteophytic ridging. Disc is asymmetric to the RIGHT with mild mass effect upon the RIGHT lateral thecal sac. Mild effacement of ventral CSF. Large posterior rl ctomy defect. Mild central and bilateral subarticular recess encroachment. L4-L5: Significant artifact from the hardware. Large posterior laminectomy defect. No central stenosi s. L5-S1: Large posterior laminectomy defect. Mild bilateral foraminal stenosis. There is an osteophytic ridge posteriorly. Mild foraminal stenosis. LEFT renal cyst. Atherosclerosis aorta. Common iliac arteries are tortuous but not aneurysmal. IMPRESSION: 1. Advanced degenerative changes throughout the lumbar spine. Degenerative scoliosis. 2. Lumbosacral fusion from L2-S2. 3. Bilateral fusion screws extend across the sacrum and the SI joints. Lucency around the RIGHT sacra l screw may indicate loosening. There is also mild asymmetric widening of the SI joints, greater wide elizabeth on the RIGHT as compared to the LEFT. New finding since 02/11/2022. 4. Large posterior laminectomy defects at L3-4, L4-5 and L5-S1. 5. There is significant artifact through the lower lumbar spine. 6. New L4 anterolisthesis by 5 mm. 7. Mild disc encroachment upon the LEFT subarticular recess at L1-20 8. Asymmetric disc bulging greatest to the RIGHT at L3-4. Mild central and bilateral subarticular rec ess encroachment.
--- NOTE | 2023-08-06 08:30 | IR_ITS ---
WS: [id number] LUMBAR MYELOGRAM HISTORY: lumbar pain COMPARISON: 07/22/2023 and 02/11/2022 FLUOROSCOPY TIME: 1min [id number] # of spot films: 1 Procedure, risks and complications were explained to the patient. Risks including bleeding, infection , headaches, allergic reaction and seizures. Consent has been obtained. With the patient in prone position the skin over the lumbar region is cleansed with ChloraPrep and an esthetized with lidocaine. 22-gauge spinal needle is inserted into the thecal sac at the appropriate level determined by fluoroscopy. Omnipaque 240; 12 ml is injected slowly under fluoroscopy with no co mplications. Needle bevel is perpendicular to the longitudinal fibers of the dura. Stylet is reinsert ed prior to removal of the needle. Patient tolerated the procedure well. Patient will proceed to CT f or further evaluation. Fusion hardware lower lumbar spine. Lung sacral screws extend across the SI joints. IMPRESSION: 1. Uncomplicated lumbar myelogram. 2. CT lumbar myelogram to follow.
== END 2023-08-06 08:04 | disposition home or self-care (01) ==
PROVIDERS: PCP Emergency Medicine Emergency Medical Services; Visit Provider Orthopaedic Surgery
DX: M43.17 Spondylolisthesis, lumbosacral region; Z98.1 Arthrodesis status; M51.36 Other intervertebral disc degeneration, lumbar region; M41.57 Other secondary scoliosis, lumbosacral region
CPT/HCPCS: 62304; 72132; Q9966

== ENCOUNTER → 2023-08-13 14:19 | Outpatient (BNVA) | payer OTHER, SELFPAY | PROVIDERS: PCP Emergency Medicine Emergency Medical Services; Visit Provider Orthopaedic Surgery | DX: Z98.1 Arthrodesis status (principal); Z01.812 Encounter for preprocedural laboratory examination; M48.061 Spinal stenosis, lumbar region without neurogenic claudication; T85.628A Displacement of other specified internal prosthetic devices, implants and grafts, initial encounter; Y79.2 Prosthetic and other implants, materials and accessory orthopedic devices associated with adverse incidents | CPT/HCPCS: 36415; 80053; 81003; 83036; 85025; 99214 ==

== ENCOUNTER 2023-09-02 18:05 | Inpatient (IN) | payer OTHER, SELFPAY ==
[2023-09-02] VITALS (61 sets, daily range): BP systolic 87–140; BP diastolic 45–81; PULSE 69–89; RESP 12–25; TEMP 36.4–37; O2SAT 91–100; BMI 42.8; BMI 45.1
--- NOTE | 2023-09-02 | XR_ITS ---
WS: [id number] Lumbar spine, C-arm fluoroscopy views, 09/02/2023 Clinical Data: t10 to pelvis fusion, or pic Comparison: Lumbar spine, 07/22/2023 Findings: Dr. Mancia performed a thoracolumbar sacral posterior fusion Impression: Posterior thoracolumbar sacral fusion.
--- NOTE | 2023-09-02 06:27 | W.PM.OPSUD ---
Surgery/Procedure H&P Update DATE OF PROCEDURE: September 02, 2023 DATE H&P PERFORMED: 08/24/23 H&P UPDATE INFORMATION: I have reviewed H&P completed within last 30 days, I have examined patient prior to procedure and No changes to prior documentation PREOP DIAGNOSIS: s/p lumbar fusion, lumbar stenosis PLANNED PROCEDURE: Operation Date: 09/02/23 07:00 Proposed Procedures p t10 to pelvis revision,revise iliac screws(Not Applicable) - DO luis Herrera L3/4 Lumbar Spine Decompression(Not Applicable) - Mitesh Mancia, DO smith Open SI Joint Fusion(Not Applicable) - Mitesh Mancia, DO
--- NOTE | 2023-09-02 06:52 | P.ANESASSM_ITS ---
Pre-Anesthetic Assessment Height/Weight: Height 1.75 m Weight 131.542 kg Temp Pulse Resp BP Pulse Ox O2 Del Method 98.4 F 77 16 114/67 94 Room Air 09/02/23 06:25 09/02/23 06:25 09/02/23 06:25 09/02/23 06:25 09/02/23 06:25 09/02/23 06:25 Preop Diagnosis: s/p lumbar fusion, lumbar stenosis Operation Date: 09/02/23 07:00 Proposed Procedures p t10 to pelvis revision,revise iliac screws(Not Applicable) - Mitesh Mancia, s L3/4 Lumbar Spine Decompression(Not Applicable) - Mitesh Mancia DO s Open SI Joint Fusion(Not Applicable) - Mitesh Mancia DO Familial anesthetic complications: Noen Was Beta Ingrid taken within 24 hours: Yes Was Clonidine taken within 24 hours: N/A Last intake: Intake Last Liquid Date 09/01/23 Last Liquid Time 21:00 Last Solid Date 09/01/23 Last Solid Time 21:00 Social No alcohol and No tobacco Exam alert, oriented x 3, clear to auscultation bilaterally and regular rate & rhythm Airway Dentition: other (no teeth) Pulmonary Asthma, Sleep Apnea and Shortness of Breath CV/HEM Atrial Fibrillation (s/p ablation w/ pacemaker), Coronary Artery Disease (mild to moderate diffuse disease in multiple vessels - treated medically, no intervention), Congestive Heart Failure (hx CHF with EF of 34%, last reported eF of 60% in 2021) and Hypertension Metabolic Diabetes Mellitus, Hyperlipidemia, Morbid Obesity and Thyroid Disease Neuropsych cerebral aneursym Anesthetic Plan ASA status: 4 Anesthesia: General Other: Patient informed of increased risk of surgery d/t extensive surgery and heart and lung comorbidities, wishes to proceed. Accepts blood transfusions. A-line Risk of > 500 ml blood loss (7ml/kg in children): Yes, adequate IV access and fluids planned Medications/Allergies Home Medications Medication Instructions Recorded Confirmed Last Taken Type cholecalciferol (vitamin D3) 50 2,000 unit PO DAILY@12/11/19 09/01/23 08/31/23 History mcg (2,000 unit) capsule (Vitamin D3) levothyroxine 137 mcg tablet 137 mcg PO DAILY@12/11/19 09/02/23 09/02/23 00:00 History (Synthroid) modafinil 200 mg tablet (Provigil) 200 mg PO DAILY@06 12/11/19 09/01/23 09/01/23 History tamsulosin 0.4 mg capsule 0.4 mg PO DAILY 07/17/20 09/01/23 08/31/23 History acetaminophen 500 mg tablet 1,000 mg PO QID PRN Pain 12/12/20 09/02/23 06/11/22 History (Tylenol Extra Strength) albuterol sulfate 2.5 mg/3 mL 2.5 mg continuous nebulization QID 12/12/20 09/01/23 08/30/23 History (0.083 %) solution for nebulization PRN shortness of breath or wheezing aspirin 81 mg tablet,delayed 81 mg PO DAILY 12/27/20 09/01/23 08/30/23 History release (Adult Aspirin Regimen) cetirizine 10 mg tablet (Zyrtec) 10 mg PO DAILY PRN allergy 01/09/21 09/02/23 06/11/22 Rx symptoms #20 tabs montelukast 10 mg tablet 10 mg PO DAILY #30 tabs 01/09/21 09/01/23 09/01/23 Rx (Singulair) Bone Growth Stimulator E0748 #1 ea 05/05/22 08/13/23 Unknown Rx spironolactone 25 mg tablet 12.5 mg (1/2 x 25 mg) PO DAILY 30 05/07/22 09/01/23 09/01/23 Rx days #30 tabs fluticasone 250 mcg-salmeterol 50 2 inh inhalation BID PRN Shortness 06/11/22 09/02/23 Unknown History mcg/dose blistr powdr for Of Breath inhalation (Advair Diskus) fluticasone propionate 50 1 spray intranasal BID PRN 06/11/22 09/01/23 1 Week Ago History mcg/actuation nasal Congestion ~08/25/23 spray,suspension (Flonase Allergy Relief) potassium chloride 20 mEq 20 meq PO DAILY PRN lasix 06/11/22 09/01/23 2 Weeks Ago History tablet,extended ~08/18/23 release(part/cryst) (Klor-Con M) carvedilol 12.5 mg tablet 6.25 mg PO BID 08/21/23 09/02/2309/02/23 00:00 History furosemide 40 mg tablet 20 mg PO DAILY PRN Edema 08/21/23 09/01/23 2 Weeks Ago History ~08/18/23 losartan 50 mg tablet 50 mg PO DAILY 08/21/23 09/01/23 08/30/23 History pantoprazole 40 mg tablet,delayed 40 mg PO DAILY 09/01/23 09/01/23 08/31/23 History release Allergies Allergy/AdvReac Type Severity Reaction Status Date / Time apixaban [From Eliquis] Allergy Severe bleeding Verified 09/01/23 14:01 ibuprofen [From Motrin] Allergy renal Verified 09/01/23 14:01 failure rivaroxaban [From Xarelto] Allergy bleeding Verified 09/01/23 14:01 tolmetin [From Tolectin] Allergy ALGY-Rash Verified 09/01/23 14:01 NSAIDS (Non-Steroidal AdvReac RENAL Verified 09/01/23 14:01 Anti-Inflamma COMPICATIONS [facility] Anesthesia Medical History Abnormal cardiovascular stress test Asthma Atherosclerotic heart disease of [place] coronary artery without angina pectoris Atrial fibrillation status post cardioversion Benign prostatic hyperplasia Cerebral arterial aneurysm Congestive heart failure Systolic and diastolic. EF of 34% on echocardiogram from 12/2020. EF of 60% on echocardiogram from 12/2021. COVID-19 Diabetes mellitus Dupuytren's disease of palm of left hand Dyslipidemia H/O diabetic nephropathy History of left heart catheterization (LHC) 12/2020 60 to 70% diffuse disease in the first diagonal branch of the left anterior descending artery. He had around 40 to 50% lesions in the distal left and descending artery. Minimal intimal irregularities in the RCA and the left circumflex artery. Based on angiographic findings, he was treated medically. Hypertension Hypothyroidism Intermittent atrial fibrillation Narcolepsy SHER (obstructive sleep apnea) Osteoarthritis of hands, bilateral Peripheral arterial disease Primary osteoarthritis of knees, bilateral Right fibular fracture Shortness of breath on exertion Spontaneous hemorrhage This patient bled into the right calf muscle and had hematuria with Xarelto Trigger finger, left ring finger Trigger finger, right middle finger Surgical History H/O cardiac radiofrequency ablation x 2 History of cataract surgery Bilateral History of knee surgery Bilateral arthroscopy (multiple on each side) History of umbilical hernia repair (~12/2021) Pacemaker Presence of Watchman left atrial appendage closure device S/P rotator cuff repair Left S/P spinal fusion Family History Other CAD (coronary artery disease) Cancer Hypertension Stroke Social History Smoking and tobacco/nicotine status: never used tobacco/nicotine Second hand smoke exposure: Yes Alcohol intake: never Substance/Drug Use: never Lives independently: Yes Household members: spouse and children Housing: House Marital status: service: Yes 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
[2023-09-02 07:03] LABS: Glucose Point of Care 122 mg/dL (70-110)
[2023-09-02] MEDS: sodium chloride 0.9% 1,000 ML 30 ML IV (07:11)
[2023-09-02] MEDS: ceFAZolin 2,000 MG in sodium chloride 0.9% (plus) 50 ML 100 MG IV (07:18)
--- NOTE | 2023-09-02 08:19 | SUR.OPER ---
Called and notified her of surgical start.
[2023-09-02] MEDS: thrombin 5,000 unit SDV 5000 UNIT XX (08:25)
[2023-09-02] MEDS: lidocaine-epi 1% 20 mL INJ INJECTION (08:26)
[2023-09-02] MEDS: vancomycin 1,000 MG SDV 1000 MG INTRA-ARTI (08:26)
[2023-09-02] MEDS: heparin, porcine 1,000 unit/mL INJ 10 mL 10000 UNIT IRRIGATION (08:26)
--- NOTE | 2023-09-02 10:10 | SUR.OPER ---
Called and notified her of surgical progress.
[2023-09-02 11:11] LABS: Hematocrit 38.7 % (37-53)
[2023-09-02] MEDS: acetaminophen 1,000 MG/100 ML PIGGYBACK 400 MG IV (11:40)
[2023-09-02] MEDS: ceFAZolin 3,000 MG in sodium chloride 0.9% (plus) 100 ML 200 MG IV (11:42)
--- NOTE | 2023-09-02 12:12 | P.OP_ITS ---
Operative Report Date of procedure: September 02, 2023 Pre-op diagnosis: 1. Lumbar stenosis with neurogenic claudication 2. Proximal junctional kyphosis 3. Loosening of hardware Post-op diagnosis: same Post-op diagnosis: same Procedure done: 1.? Posterior fusion T10 -pelvis 3.? Instrumentation T10-S1 4.? Lumbopelvic instrumentation 5. open right Sacral iliac fusion 6. open left sacral iliac fusion 7. L3/4 laminectomy with partial facetectomies 8. Remoaval of deep hardware from the spine 9. use of computer navigation / stereotactic spine 10. use of autograft from same incision 11. allograft 12. Bone marrow aspirate from right iliac crest Surgeon: Mitesh Mancia DO [employer]: Jose Martin Remy [employer]: The assistant operator, Jose Martin Remy, KAYLA was needed for his expertise under the microscope. He was important and necessary throughout the procedure to complete in a safe and timely manner. He assisted with patient positioning prepping and draping tissue retraction suctioning of the operative field protection of the dural sac and tissue closure Estimated blood loss (mL): 1,300 Procedure: 1.? Posterior fusion T10 -pelvis 3.? Instrumentation T10-S1 4.? Lumbopelvic instrumentation 5. open right Sacral iliac fusion 6. open left sacral iliac fusion 7. L3/4 laminectomy with partial facetectomies 8. Remoaval of deep hardware from the spine 9. use of computer navigation / stereotactic spine 10. use of autograft from same incision 11. allograft 12. Bone marrow aspirate from right iliac crest Patient is brought to the operative suite.? After undergoing anesthesia, the patient had neuro monitoring attached.? Patient was then placed in the prone position on the Wilmer table.? All areas of impingement were well-padded.? Patient was then prepped and draped in the normal sterile fashion.? Skin incision was then made over the L2 to the sacrum.? Subperiosteal dissection was made out to the transverse processes ofL2 bilaterally? L3 bilaterally L4 jethro aterally L5 bilaterally and sacral ala bilaterally.? Hardware was identified that was in previously. The caps were removed from the screws rods were then removed. The iliac screws were removed as were the L4 screws. Screws were all removed bilaterally. Next the wound was dissected up to T10. The exposure was out to the transverse processes of T10-T11 and T12-L1 and L2. These were all bilaterally. The [employer] bone marrow aspirate kit was used to aspirate bone marrow aspirate.? This was done by using the sharp probe to open up the bone.? Aspiration was performed and then the blunt probe was then used to dissect down to through the bone tunnel.? An aspirating well drawn back a millimeter approximately 10 cc of bone marrow aspirate was used.? Admixed with the allograft and autograft bone that will be used. Next attension was brought to placing the fiducial for the computer navigation.? 2 pins were placed into the right iliac crest.? The fiducial was attached.? The C-arm was brought in and information from the C arm was then linked to the computer used for placing the screws.? Next attention was brought to placing the pedicle screws.? This was done by using the gearshift probe.? The probe was used to identify the pedicle.? Then the pedicle feeler was used followed by placement of screw.? This was done at at T10 bilaterally, T11 bilaterally, T12 only on the left side L1 only on the right side, L2 bilaterally L3 bilaterally L4 bilaterally, L5 bilaterally and S1 bilaterally. Next attension was brought to placing the iliac screws.? This was done using the sacral ala iliac technique.? The gearshift probe linked to computer navigation was then placed through the sacral ala into the sacroiliac joint into the iliac crest.? The gearshift probe was passed down the same hole that was removed from earlier. To confirm. Next the pedicle feeler was used followed by the computer navigated tap.? And then the screw was passed a 90 mm screw was placed on the right side and a 90 mm screw was placed on the left side.? Both the screws were 10.5 mm in diameter. Next attension was brought to performing the open and sacral iliac fusion.? This was done by again using the gearshift probe linked to computer navigation.? Followed by pedicle feeler followed by placing a wire and then the drill drilled over the wire and then bone graft was packed into the sacroiliac joint and into the drill hole.? And the sacroiliac screw was then placed.? This technique was done on both the right and left side. Next attention was brought to performing the laminectomy of L3.? This was done using the high-speed bur Kerrisons and curettes.? Once the lamina was removed and then attention was brought to performing a partial facetectomy on the contralateral side.? This was done again using the high-speed bur curettes and Kerrisons.? The ligamentum flavum was taken down bilaterally from L3 to L4.? Attention was then brought to the facet on the ipsilateral side.? The facet was taken down.? The L4 nerve was decompressed as it passed around the L4 pedicle and into the previous laminectomy site where there was a lot of scar tissue.? The laminectomy was done for purposes of decompressing the nerve.? The L3 nerve was identified as it traversed through the L3/4 foramen.? The L4 nerve was traced around the L4 pedicles bilateral.? The scar tissue was pulled off the dura.? There was found to be in good repair. Attention was then brought to attaching the rods to the screws placed in T10 bilaterally, T11 bilaterally, T12 bilaterally, L1 bilaterally, L 2 bilaterally?L3 bilaterally L4 bilaterally L5 bilaterally and S1 bilaterally.? This was then attached to the sacroiliac screw providing the lumbopelvic fixation.? Caps were torqued into position. Locking the construct in place. Wound was copiously irrigated and then attention was brought to decorticating the facets and transverse processes laterally.? Bone that was taken down from the lamina was used along with osteoamp fibers and sponges were packed into the lateral gutters along the facet joints.? This was done bilaterally. Wound was then closed in a layered fashion starting with the thoracolumbar fascia.? 0-vicryl was used the sub cutaneous tissue was closed with 2-0 vicryl and skin with 4-0 monocryl.? Glue was then used to seal the skin and a steril dressing was applied.? Patient was then placed in the supine position. The endotracheal tube was removed and patient was transferred to the PACU in stable condition.
[2023-09-02] MEDS: HYDROmorphone 1 mg/mL INJ 1 mL 0.5 MG IVP (12:35)
--- NOTE | 2023-09-02 15:02 | PM.CONSULT ---
Providers/Reason For Consult Consulting Physician/Specialty*: Dr. Patel/internal medicine Reason for Consult*: Medical management Requesting Physician: Dr. Mancia Attending Physician: Mitesh Mancia DO Primary Care Provider: Emil Oliveira DO History of Present Illness History of Present Illness Lupillo Silveira is a 77 year old male with past medical history of congestive heart failure who follows up with gambling monitor at [place] as an outpatient, nightly oxygen with last known EF in our hospital from December 2021 of 60% who underwent laminectomy and partial fasciectomy today by Dr. Mancia. It has been told that patient had significant blood loss during the OR hence medicine service has been consulted. Patient seen in PACU laying comfortably in bed with blood pressure of 130/80, heart rate of 75 bpm, saturating well on 3 L of oxygen supplementation, awake but slightly drowsy in postanesthetic effect. Patient states at baseline he has been doing well other than exertional shortness of breath which has been getting worse over last few months. He is on spironolactone as an outpatient by his outpatient gambling monitor and was recently started on Entresto. Review of Systems General: Reports: 10 or more systems reviewed and unremarkable except in HPI and below Const: Denies: fever(s), chills, body aches, change in appetite, change in weight, malaise, night sweats, diaphoresis, change in sleep pattern, daytime sleepiness or snoring Eyes: Denies: change in vision, blurry vision, photophobia, eye discomfort or eye discharge ENMT: Denies: throat pain, enlarged tonsils, hoarseness, mouth pain, oral sores, dry mouth, tinnitus, nasal congestion or post nasal drip Card: Denies: chest pain, palpitations, irregular heart rhythm, edema, swelling of feet/ankles, lightheadedness, syncope, pre-syncope, dyspnea on exertion, orthopnea, leg pain with exertion or acrocyanosis Resp: Denies: dyspnea, productive cough, non-productive cough, wheezing, stridor, pain on inspiration, change in phlegm color, hemoptysis or chest congestion GI: Denies: abdominal pain, nausea, vomiting, hematemesis, coffee ground emesis, dysphagia, heartburn, diarrhea, constipation, bloating, GI cramping, change in bowel habits, pain on defecation, hematochezia or melena : Denies: flank pain, difficulty urinating, dysuria, urinary frequency, urinary urgency, urinary hesitancy, urinary dribbling, difficulty starting urination, change in urine stream, nocturia or hematuria Musc: Denies: neck pain, back pain, extremity pain, joint pain, joint swelling, joint redness, joint stiffness or limited range of motion Neuro: Denies: headache(s), numbness in extremities, weakness in extremities, sensory changes, lack of coordination, difficulty walking, frequent falls, dizziness, vertigo, confusion, Slurred speech present, difficulty communicating thoughts or seizure-like activity Psych: Denies: anxiety, depression, mood swings, panic attacks, hopelessness or irritability Endo: Denies: polyuria, polydipsia, tired all the time, cold intolerance, excessive sweating, flushing or heat intolerance [place]/Lymph: Denies: easy bruising or easy bleeding All/Imm: Denies: tongue swelling, facial swelling or acute wheezing Medications/Allergies Home Medications Medication Instructions Recorded Confirmed Last Taken Type cholecalciferol (vitamin D3) 50 2,000 unit PO DAILY@12/11/19 09/01/23 08/31/23 History mcg (2,000 unit) capsule (Vitamin D3) levothyroxine 137 mcg tablet 137 mcg PO DAILY@12/11/19 09/02/23 09/02/23 00:00 History (Synthroid) modafinil 200 mg tablet (Provigil) 200 mg PO DAILY@12/11/19 09/01/23 09/01/23 History tamsulosin 0.4 mg capsule 0.4 mg PO DAILY 07/17/20 09/01/23 08/31/23 History acetaminophen 500 mg tablet 1,000 mg PO QID PRN Pain 12/12/20 09/02/23 06/11/22 History (Tylenol Extra Strength) albuterol sulfate 2.5 mg/3 mL 2.5 mg continuous nebulization QID 12/12/20 09/01/23 08/30/23 History (0.083 %) solution for nebulization PRN shortness of breath or wheezing aspirin 81 mg tablet,delayed 81 mg PO DAILY 12/27/20 09/01/23 08/30/23 History release (Adult Aspirin Regimen) cetirizine 10 mg tablet (Zyrtec) 10 mg PO DAILY PRN allergy 01/09/21 09/02/23 06/11/22 Rx symptoms #20 tabs montelukast 10 mg tablet 10 mg PO DAILY #30 tabs 01/09/21 09/01/23 09/01/23 Rx (Singulair) Bone Growth Stimulator E0748 #1 ea 05/05/22 08/13/23 Unknown Rx spironolactone 25 mg tablet 12.5 mg (1/2 x 25 mg) PO DAILY 30 05/07/22 09/01/23 09/01/23 Rx days #30 tabs fluticasone 250 mcg-salmeterol 50 2 inh inhalation BID PRN Shortness 06/11/22 09/02/23 Unknown History mcg/dose blistr powdr for Of Breath inhalation (Advair Diskus) fluticasone propionate 50 1 spray intranasal BID PRN 06/11/22 09/01/23 1 Week Ago History mcg/actuation nasal Congestion ~08/25/23 spray,suspension (Flonase Allergy Relief) potassium chloride 20 mEq 20 meq PO DAILY PRN lasix 06/11/22 09/01/23 2 Weeks Ago History tablet,extended ~08/18/23 release(part/cryst) (Klor-Con M) carvedilol 12.5 mg tablet 6.25 mg PO BID 08/21/23 09/02/23 09/02/23 00:00 History furosemide 40 mg tablet 20 mg PO DAILY PRN Edema 08/21/23 09/01/23 2 Weeks Ago History ~08/18/23 losartan 50 mg tablet 50 mg PO DAILY 08/21/23 09/01/23 08/30/23 History pantoprazole 40 mg tablet,delayed 40 mg PO DAILY 09/01/23 09/01/23 08/31/23 History release Allergies Allergy/AdvReac Type Severity Reaction Status Date / Time apixaban [From Eliquis] Allergy Severe bleeding Verified 09/01/23 14:01 ibuprofen [From Motrin] Allergy renal Verified 09/01/23 14:01 failure rivaroxaban [From Xarelto] Allergy bleeding Verified 09/01/23 14:01 tolmetin [From Tolectin] Allergy ALGY-Rash Verified 09/01/23 14:01 NSAIDS (Non-Steroidal AdvReac RENAL Verified 09/01/23 14:01 Anti-Inflamma COMPICATIONS Current Medications Generic Name Dose Route Start Last Admin Trade Name Freq PRN Reason Stop Dose Admin Hydromorphone HCl 0.5 mg 09/02/23 12:14 09/02/23 12:35 Hydromorphone 1 Mg/Ml Inj 1 Ml IVP 09/03/23 12:14 0.5 mg Q10M PRN Administration Pain level 7-10 PACU Phase I Sodium Chloride 1,000 mls @ 30 mls/hr 09/02/23 06:15 09/02/23 10:20 Sodium Chloride 0.9% IV 09/03/23 06:14 Infused .Q24H ASHTYN Infusion PFSH Acute PFSH: Medical History (Updated 09/02/23 @ 18:00 by Brenton Patel MD) Diverticulosis large intestine w/o perforation or abscess w/bleeding History of colon polyps Dupuytren's disease of palm of left hand Trigger finger, right middle finger Trigger finger, left ring finger Osteoarthritis of hands, bilateral Congestive heart failure Systolic and diastolic. EF of 34% on echocardiogram from 12/2020. EF of 60% on echocardiogram from 12/2021. H/O diabetic nephropathy History of left heart catheterization (LHC) 12/2020 60 to 70% diffuse disease in the first diagonal branch of the left anterior descending artery. He had around 40 to 50% lesions in the distal left and descending artery. Minimal intimal irregularities in the RCA and the left circumflex artery. Based on angiographic findings, he was treated medically. Asthma Atherosclerotic heart disease of [place] coronary artery without angina pectoris Abnormal cardiovascular stress test Diabetes mellitus Primary osteoarthritis of knees, bilateral SHER (obstructive sleep apnea) COVID-19 Right fibular fracture Spontaneous hemorrhage This patient bled into the right calf muscle and had hematuria with Xarelto Shortness of breath on exertion Dyslipidemia Cerebral arterial aneurysm Intermittent atrial fibrillation Atrial fibrillation status post cardioversion Narcolepsy Peripheral arterial disease Hypertension Benign prostatic hyperplasia Hypothyroidism Surgical History (Updated 09/02/23 @ 17:13 by Brenton Patel MD) History of colonoscopy 5 years ago History of esophagogastroduodenoscopy 30 years ago History of umbilical hernia repair (~12/2021) S/P spinal fusion H/O cardiac radiofrequency ablation x 2 Pacemaker Presence of Watchman left atrial appendage closure device History of cataract surgery Bilateral History of knee surgery Bilateral arthroscopy (multiple on each side) S/P rotator cuff repair Left Family History Other CAD (coronary artery disease) Cancer Hypertension Stroke Social History Smoking and tobacco/nicotine status: never used tobacco/nicotine Second hand smoke exposure: Yes Alcohol intake: never Substance/Drug Use: never Lives independently: Yes Household members: spouse and children Housing: House Marital status: service: Yes 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 Do you think of yourself as: Straight/Heterosexual Current gender identity: Male Vitals/I&O/Wt Last Vital Signs Temp 98.6 F 09/02/23 12:18 Pulse 76 09/02/23 14:38 Resp 18 09/02/23 14:38 BP 135/60 09/02/23 14:38 Pulse Ox 97 09/02/23 14:38 O2 Del Method Nasal Cannula 09/02/23 14:38 O2 Flow Rate 3 09/02/23 14:38 09/02/23 09/02/23 09/02/23 06:59 14:59 22:59 Intake Total 1850 / 1850 Output Total 2400 / 2400 Balance -550 / -550 Weight last 48 hrs Weight 131.542 kg Physical Exam Narrative: General: No acute distress, AO x3, nasal canula, drowsy post anaesthesia HEENT: PERRLA, pupils bilaterally equal and reactive Chest: Normal vesicular breath sounds, no added sounds, equal good air entry bilaterally CVS: S1-S2 regular, no murmurs, no tachycardia, no gallops, no rubs Abdomen: Soft, nontender, no organomegaly, bowel sounds present Neuro: No focal deficits, no facial deformity, AO x3, power 5/5 in all limbs Urinary Catheter Management: Kowalski: Cath Placed During This Visit: yes Urinary Catheter Date of Insertion: 09/02/23 Urinary Catheter Time of Insertion: 07:25 Data 09/02/23 10:59 A&P Assessment and plan (1) Encounter for postoperative care: Check CBC, CMP. No blood work in the monitor except H&H. Will have to monitor H&H as reportedly patient had blood loss during the OR. PT/anticoagulation/perioperative antibiotics as per primary team. Advance diet when okay with primary team. (2) Hypertension: Goal blood pressure less than 140/90 mmHg. Blood pressure stable for now. Hold off on antihypertensive. Will restart as per goal blood pressures. Continue to monitor. Qualifiers: Hypertension type: primary hypertension Qualified Code(s): I10 - Essential (primary) hypertension (3) Intermittent atrial fibrillation: Continue to monitor. Patient is to be on carvedilol at home 6.25 twice daily. Continue to hold for now. Appreciate last echocardiogram. (4) Chronic respiratory failure with hypoxia: Most likely in setting of congestive heart failure and baseline asthma. Patient states his dyspnea on exertion has been getting worse lately. Chest x-ray. Pulmicort twice daily, DuoNebs every 4 hours. Patient seems euvolemic for now. Postoperatively for now we will hold off diuretics. Monitor for fluid overload. (5) Atherosclerotic heart disease of [place] coronary artery without angina pectoris: Qualifiers: [place] vs. transplanted heart: [place] heart Qualified Code(s): I25.10 - Atherosclerotic heart disease of [place] coronary artery without angina pectoris (6) Congestive heart failure: Qualifiers: Heart failure chronicity: chronic Heart failure type: diastolic Qualified Code(s): I50.32 - Chronic diastolic (congestive) heart failure (7) H/O cardiac radiofrequency ablation: (8) Pacemaker: (9) Presence of Watchman left atrial appendage closure device: (10) Asthma: Plan Full code Carb consistent diet once okay with primary Anticoagulation as per primary team PT Please complete the medical reconciliation so proper home medications can be restarted. Thank you for involving us in care of of Mr. Silveira. Please call back with any questions. Consult Attestations Medical Necessity Statement: As per primary team. Diagnoses Encounter for postoperative care Z48.89 Primary hypertension I10 Hypertension type: primary hypertension Intermittent atrial fibrillation I48.0 Chronic respiratory failure with hypoxia J96.11 Atherosclerosis of [place] coronary artery of [place] heart without angina pectoris I25.10 [place] vs. transplanted heart: [place] heart Chronic diastolic congestive heart failure I50.32 Heart failure chronicity: chronic Heart failure type: diastolic H/O cardiac radiofrequency ablation Z98.890 Pacemaker Z95.0 Presence of Watchman left atrial appendage closure device Z95.818 Asthma J45.909
--- NOTE | 2023-09-02 17:28 | PC.NURSE ---
1730 - REPORT CALLED TO BLANCA PELAEZ RN ICU PER THIS NURSE - PER BLANCA STATED ICU 12 NOT READY FOR PT - C.DELGADO RN NOTIFIED
--- NOTE | 2023-09-02 18:17 | XRR_ITS ---
PROCEDURE INFORMATION: Exam: XR Chest Exam date and time: 09/02/2023 9:15 PM Age: 77 years old Clinical indication: Shortness of breath; Prior surgery; Surgery date: 6+ months; Patient HX: Increased SOB; HTN; HX chf, afib, casthma, pacemaker TECHNIQUE: Imaging protocol: Radiologic exam of the chest. Views: 1 view. COMPARISON: CR XR chest 1V portable [id number] 12/28/2021 5:51 AM FINDINGS: Tubes, catheters and devices: Left-sided pacemaker. Lungs: Left lower lobe atelectasis versus minimal infiltrate. Pleural spaces: Unremarkable. No pleural effusion. No pneumothorax. Heart/Mediastinum: Cardiomegaly. Bones/joints: Unremarkable. XR/XR chest 1V portable [id number] IMPRESSION: 1. Cardiomegaly. 2. Left lower lobe atelectasis versus minimal infiltrate. 3. Left-sided pacemaker.
[2023-09-02] MEDS: lactated ringers 1,000 ML 90 ML IV (19:57)
[2023-09-02] MEDS: morphine 4 mg/mL SDV 1 mL 2 MG IVP ×2 (20:03→21:09)
[2023-09-02] MEDS: HYDROcodone-acetaminophen 10-325 mg Tablet PO (20:06)
[2023-09-02] MEDS: ceFAZolin 3,000 MG in sodium chloride 0.9% (plus) 50 ML 100 MG IV (20:13)
[2023-09-02] MEDS: ipratropium-albuterol 3 mL Neb INHALATION (21:00)
[2023-09-02] MEDS: budesonide 0.5 mg/2 mL Neb INHALATION (21:00)
[2023-09-02 21:51] LABS: Alanine Aminotransferase 9 U/L (0-41); Albumin Level 3.3 g/dL (3.5-5.2); Alkaline Phosphatase 93 U/L (40-130); Anion Gap 16.9 (5-19); Aspartate Amino Transferase 21 U/L (0-40); Blood Urea Nitrogen 22 mg/dL (8-23); Calcium 7.9 mg/dL (8.5-10.5); Carbon Dioxide 18 mmol/L (22-29); Chloride 103 mmol/L (98-107); Globulin 2.2 g/dL (1.3-4.6); Glucose 148 mg/dL (65-115); Osmolality Calculated 282 mOsm/kg (285-295); Potassium 4.9 mmol/L (3.5-5.1); Sodium 133 mmol/L (136-145); Total Bilirubin 0.4 mg/dL (0.15-1.2); Total Protein 5.5 g/dL (6.6-8.7)
[2023-09-02 21:52] LABS: Basophils % 0.1 %; Hematocrit 33.1 % (37-53); Lymphocytes # 0.6 10^3/uL (0.8-4.8); Lymphocytes % 5.4 %; Mean Corpuscular HGB Conc 29.9 g/dL (30-55); Mean Corpuscular Hemoglobin 25.3 pg (27-33); Mean Corpuscular Volume 84.7 fl (82-101); Mean Platelet Volume 9.9 fL (7.4-10.4); Monocytes # 0.8 10^3/uL (0.2-0.9); Monocytes % 6.8 %; Neutrophils # 10.19 10^3/uL (1.8-7.7); Neutrophils % 87.3 %; Nucleated Red Blood Cells % 0 %; Platelet Count 196 10^3/cmm (157-399); Red Blood Count 3.91 10^6/uL (3.85-5.65); Red Cell Distribution Width 16.1 % (12.1-15.1); White Blood Count 11.67 10^3/uL (3.29-11.43)
[2023-09-02] MEDS: sodium chloride 0.9% 100 mL Bag 50 ML IV (23:24)
[2023-09-02 23:58] LABS: Iron 47 ug/dL (59-158); Percent Saturation 15.6 % (20-50); Total Iron Binding Capacity 301 mcg/dl; Unsaturated Iron Binding 254 ug/dL (112-347)
[2023-09-03] VITALS (44 sets, daily range): BP systolic 104–158; BP diastolic 60–90; PULSE 74–80; RESP 12–22; TEMP 36.6–37.3; O2SAT 90–99
[2023-09-03] MEDS: HYDROcodone-acetaminophen 10-325 mg Tablet PO ×2 (01:54→10:09)
[2023-09-03] MEDS: morphine 4 mg/mL SDV 1 mL 2 MG IVP ×4 (01:54→20:27)
[2023-09-03] MEDS: levothyroxine 137 mcg Tablet PO (03:27)
[2023-09-03] MEDS: ceFAZolin 3,000 MG in sodium chloride 0.9% (plus) 50 ML 100 MG IV ×2 (03:32→12:22)
[2023-09-03 03:46] LABS: Basophils % 0.1 %; Hematocrit 33.2 % (37-53); Lymphocytes # 0.8 10^3/uL (0.8-4.8); Lymphocytes % 8.1 %; Mean Corpuscular HGB Conc 30.4 g/dL (30-55); Mean Corpuscular Hemoglobin 25.3 pg (27-33); Mean Platelet Volume 9.8 fL (7.4-10.4); Monocytes # 0.9 10^3/uL (0.2-0.9); Neutrophils # 8.53 10^3/uL (1.8-7.7); Neutrophils % 82.4 %; Nucleated Red Blood Cells % 0 %; Platelet Count 165 10^3/cmm (157-399); Red Cell Distribution Width 15.8 % (12.1-15.1); White Blood Count 10.35 10^3/uL (3.29-11.43)
[2023-09-03 04:12] LABS: Alanine Aminotransferase 9 U/L (0-41); Albumin Level 3.1 g/dL (3.5-5.2); Alkaline Phosphatase 85 U/L (40-130); Blood Urea Nitrogen 20 mg/dL (8-23); Carbon Dioxide 17 mmol/L (22-29); Chloride 103 mmol/L (98-107); Globulin 2.2 g/dL (1.3-4.6); Glucose 163 mg/dL (65-115); Osmolality Calculated 280 mOsm/kg (285-295); Sodium 132 mmol/L (136-145); Total Bilirubin 0.4 mg/dL (0.15-1.2); Total Protein 5.3 g/dL (6.6-8.7)
[2023-09-03 04:13] LABS: Anion Gap 17.3 (5-19); Aspartate Amino Transferase 25 U/L (0-40); Potassium 5.3 mmol/L (3.5-5.1)
[2023-09-03] MEDS: cholecalciferol (vitamin D3) 1,000 unit Tablet 2000 UNIT PO (06:04)
[2023-09-03] MEDS: lactated ringers 1,000 ML 90 ML IV (07:09)
--- NOTE | 2023-09-03 07:15 | PM.PN ---
Subjective Subjective: POD 1 Patient resting comfortably. Reports back pain. Denies chest pain, shortness of breath, headaches. Vitals/I&O/Wt Last Vital Signs Temp 97.8 F 09/03/23 01:37 Pulse 80 09/03/23 06:00 Resp 15 09/03/23 06:00 BP 135/75 09/03/23 06:00 Pulse Ox 92 09/03/23 06:00 O2 Del Method Room Air 09/03/23 06:00 O2 Flow Rate 2 09/03/23 03:30 09/02/23 09/03/23 09/03/23 22:59 06:59 14:59 Intake Total 584.5 / 2434.5 1320 / 3754.5 95.5 / 95.5 Output Total 1500 / 3900 Balance 584.5 / 34.5 -180 / -145.5 95.5 / 95.5 Weight last 48 hrs Weight 296 lb 8 oz Weight 290 lb Physical Exam Narrative: Patient presents alert and oriented x3 with a good general appearance normal mood and affect. Normal coordination normal stability. Mild tenderness around the incisional site with the incision appear to be clean and dry. No signs of erythema or drainage. No signs of infection. Patient denies any fevers or chills. 4/5 motor strength both lower extremities with negative straight leg raise bilaterally. Calves are supple no medial thigh tenderness. Pulses are 2+ at the dorsalis pedis and posterior tibial region. Good capillary refill throughout normal sensation light touch both lower extremities. Urinary Catheter Management: Kowalski: Cath Placed During This Visit: yes Reason for Continuing Indwelling Catheter: Accurate Measurement of Urinary Output in Critically Ill Patients Urinary Catheter Date of Insertion: 09/02/23 Urinary Catheter Time of Insertion: 07:25 Data 09/03/23 03:25 09/03/23 03:25 A&P Assessment and plan (1) S/P spinal fusion: Physical therapy to evaluate. We will continue the Hemovac drain until tomorrow. Continue incentive spirometry for pulmonary toilet. Okay from orthopedic standpoint to transfer to the floor when medically stable. Patient is high risk of bleeding continue SCDs for DVT prophylaxis. Attestations Medical Necessity Statement*: Transfer to the [facility] floor when cleared by hospitalist team Coding Level of Care Code Acute Code for Chg Fwd Diagnoses S/P spinal fusion Z98.1
[2023-09-03] MEDS: pantoprazole DR 40 mg Tablet PO (09:13)
[2023-09-03] MEDS: montelukast sodium 10 mg Tablet PO (09:13)
[2023-09-03] MEDS: docusate sodium 100 mg Capsule PO ×2 (09:13→17:09)
[2023-09-03] MEDS: tamsulosin 0.4 mg Capsule PO (09:13)
[2023-09-03] MEDS: ipratropium-albuterol 3 mL Neb INHALATION ×3 (09:27→20:22)
[2023-09-03] MEDS: budesonide 0.5 mg/2 mL Neb INHALATION ×2 (09:28→20:22)
[2023-09-03] MEDS: dextrose 50% syringe 50 mL IVP (10:58)
[2023-09-03] MEDS: insulin regular-human 10 UNIT in SYRINGE 1 EACH IVP (10:59)
--- NOTE | 2023-09-03 11:19 | PM.PN ---
Subjective Subjective: No acute events overnight. Today morning patient seen sitting up in bed. He is a lot more awake and alert. Denies any nausea, vomiting, headache. States pain is well-controlled. Patient has remained hemodynamically stable. Arterial line in place. Blood work appreciated for hemoglobin of 9.8 which is slightly lower than yesterday but stable, platelet count of 151, CMP showing a sodium of 132 with potassium of 5.3 Vitals/I&O/Wt Last Vital Signs Temp 97.8 F 09/03/23 01:37 Pulse 75 09/03/23 09:20 Resp 16 09/03/23 09:20 BP 142/89 09/03/23 09:00 Pulse Ox 95 09/03/23 09:20 O2 Del Method Room Air 09/03/23 09:20 O2 Flow Rate 2 09/03/23 03:30 09/02/23 09/03/23 09/03/23 22:59 06:59 14:59 Intake Total 584.5 / 2434.5 1320 / 3754.5 530.6 / 530.6 Output Total 1500 / 3900 Balance 584.5 / 34.5 -180 / -145.5 530.6 / 530.6 Weight last 48 hrs Weight 134.49 kg Weight 131.542 kg Physical Exam Narrative: General: No acute distress, AO x3, nasal canula, drowsy post anaesthesia HEENT: PERRLA, pupils bilaterally equal and reactive Chest: Normal vesicular breath sounds, no added sounds, equal good air entry bilaterally CVS: S1-S2 regular, no murmurs, no tachycardia, no gallops, no rubs Abdomen: Soft, nontender, no organomegaly, bowel sounds present Neuro: No focal deficits, no facial deformity, AO x3, power 5/5 in all limbs Urinary Catheter Management: Kowalski: Cath Placed During This Visit: yes Reason for Continuing Indwelling Catheter: Accurate Measurement of Urinary Output in Critically Ill Patients Urinary Catheter Date of Insertion: 09/02/23 Urinary Catheter Time of Insertion: 07:25 Data 09/03/23 13:10 09/03/23 03:25 A&P Assessment and plan (1) Encounter for postoperative care: Appreciate blood work. Hemoglobin stable. Continue with physical therapy, anticoagulation as per primary team, perioperative antibiotics which should be stopped later in the day today. Monitor H&H daily. (2) Hypertension: Goal blood pressure less than 140/90 mmHg. Blood pressure soft to stable for now. Will restart Coreg at low-dose 3.125 mg twice daily. Hold all other antihypertensives for now. Qualifiers: Hypertension type: primary hypertension Qualified Code(s): I10 - Essential (primary) hypertension (3) Intermittent atrial fibrillation: Continue to monitor. Patient is to be on carvedilol at home 6.25 twice daily. Restarting Coreg as above. Appreciate electrocardiogram. (4) Chronic respiratory failure with hypoxia: Most likely in setting of congestive heart failure and baseline asthma. Patient states his dyspnea on exertion has been getting worse lately. Chest x-ray appreciated. Pulmicort twice daily, DuoNebs every 4 hours. Patient seems euvolemic for now. Postoperatively for now we will hold off diuretics. Monitor for fluid overload. Stop IV fluids. (5) Atherosclerotic heart disease of [place] coronary artery without angina pectoris: Qualifiers: [place] vs. transplanted heart: [place] heart Qualified Code(s): I25.10 - Atherosclerotic heart disease of [place] coronary artery without angina pectoris (6) Congestive heart failure: Qualifiers: Heart failure type: diastolic Heart failure chronicity: chronic Qualified Code(s): I50.32 - Chronic diastolic (congestive) heart failure (7) H/O cardiac radiofrequency ablation: (8) Pacemaker: (9) Presence of Watchman left atrial appendage closure device: (10) Asthma: Plan Hyperkalemia: Patient does have potassium to 5.3. Will treat with D50 and 10 units of insulin. Repeat potassium in evening. Medical reconciliation done for hyperkalemic medications. Hold off on spironolactone and losartan for now. Repeat potassium level in afternoon. Will repeat treatment as per the levels in the afternoon. Appreciate recent A1c, iron panel. Will repeat TSH, lipid panel and B12, folate levels. Full code Carb consistent diet once okay with primary Anticoagulation as per primary team PT Patient is stable to be transferred to medical surgery floor once okay with primary team. Plan discussed in detail with patient's RN at bedside. Care discussed in detail with the patient at bedside. All the questions were answered. Thank you for involving us in care of of Mr. Silveira. Please call back with any questions. Attestations Medical Necessity Statement*: As per primary team. Diagnoses Encounter for postoperative care Z48.89 Primary hypertension I10 Hypertension type: primary hypertension Intermittent atrial fibrillation I48.0 Chronic respiratory failure with hypoxia J96.11 Atherosclerosis of [place] coronary artery of [place] heart without angina pectoris I25.10 [place] vs. transplanted heart: [place] heart Chronic diastolic congestive heart failure I50.32 Heart failure type: diastolic Heart failure chronicity: chronic H/O cardiac radiofrequency ablation Z98.890 Pacemaker Z95.0 Presence of Watchman left atrial appendage closure device Z95.818 Asthma J45.909
--- NOTE | 2023-09-03 11:24 | PC.NURSE ---
Art line removed from right wrist at 1115 pressure manual pressure preformed for 7 mins and pressure dressing applied educated patient on s/s of complication verbal understanding expressed
[2023-09-03 13:44] LABS: Basophils % 0.1 %; Eosinophils % 0.1 %; Hematocrit 32.3 % (37-53); Lymphocytes % 11.1 %; Mean Corpuscular HGB Conc 30.3 g/dL (30-55); Mean Corpuscular Hemoglobin 25.5 pg (27-33); Mean Corpuscular Volume 84.1 fl (82-101); Mean Platelet Volume 9.7 fL (7.4-10.4); Monocytes # 1.1 10^3/uL (0.2-0.9); Neutrophils # 7.13 10^3/uL (1.8-7.7); Neutrophils % 76.2 %; Nucleated Red Blood Cells % 0 %; Platelet Count 151 10^3/cmm (157-399); Red Blood Count 3.84 10^6/uL (3.85-5.65); White Blood Count 9.36 10^3/uL (3.29-11.43)
[2023-09-03] MEDS: acetaminophen 325 mg Tablet 650 MG PO (14:47)
[2023-09-03 15:10] LABS: Vitamin B12 186 pg/mL (232-1245)
[2023-09-03 16:06] LABS: Thyroid Stimulating Hormone 0.78 uIU/mL (0.27-4.20)
--- NOTE | 2023-09-03 16:23 | PC.NURSE ---
This RN originally pulled Ativan on range dose order of 0.5-2mg and chose 1 mg to administer. Upon assessment of patient and speaking with family, patient was breathing heavier and more rapidly than prior assessment and family requested the increased dose of 2 mg, which was within the range. After administration, I called and spoke with Juarez in pharmacy to fix the discrepancy in Pyxis as I no longer needed to waste it. He instructed me to waste the original and re-pull the medication from the Pyxis as 2 mg. This was performed with Abundio Lott RN as witness.
[2023-09-03] MEDS: carvedilol 3.125 mg Tablet PO (17:09)
[2023-09-03] MEDS: cyanocobalamin 1,000 mcg/mL SDV 1000 MCG IM (17:10)
--- NOTE | 2023-09-03 17:14 | PC.NURSE ---
late entry transfer note: Patient transferred via bed to room 275 with myself and [employer] SUPERVISOR. transporting belongings. Dressing intact and dry, hemovac in place and draining. Patient on room air, rate even, see documented stable vitals. Patient transferred to MS bed via stand and pivot and states he wants to sit at the side of the bed and wait for physical therapy to see him. in room with belongings , including home bipap. Nurse, Cecil at bedside as well. Paper chart left in room with floor nurse.
[2023-09-03] MEDS: HYDROcodone-acetaminophen 10-325 mg Tablet 1 TAB PO (22:53)
[2023-09-04] VITALS (18 sets, daily range): BP systolic 105–138; BP diastolic 68–82; PULSE 74–77; RESP 13–20; TEMP 36.3–36.9; O2SAT 91–98
[2023-09-04] MEDS: morphine 4 mg/mL SDV 1 mL 2 MG IVP ×2 (00:19→08:22)
[2023-09-04] MEDS: ipratropium-albuterol 3 mL Neb INHALATION ×4 (02:24→20:27)
[2023-09-04] MEDS: levothyroxine 137 mcg Tablet PO (03:02)
[2023-09-04] MEDS: HYDROcodone-acetaminophen 10-325 mg Tablet 1 TAB PO (03:03)
[2023-09-04] MEDS: cholecalciferol (vitamin D3) 1,000 unit Tablet 2000 UNIT PO (06:08)
[2023-09-04 06:15] LABS: Basophils % 0.4 %; Eosinophils % 0.5 %; Hematocrit 28.5 % (37-53); Lymphocytes # 1.2 10^3/uL (0.8-4.8); Lymphocytes % 14.6 %; Mean Corpuscular HGB Conc 31.2 g/dL (30-55); Mean Corpuscular Hemoglobin 25.4 pg (27-33); Mean Corpuscular Volume 81.4 fl (82-101); Monocytes # 0.8 10^3/uL (0.2-0.9); Monocytes % 9.5 %; Neutrophils # 6.23 10^3/uL (1.8-7.7); Neutrophils % 74.5 %; Nucleated Red Blood Cells % 0 %; Platelet Count 142 10^3/cmm (157-399); White Blood Count 8.35 10^3/uL (3.29-11.43)
[2023-09-04 06:43] LABS: Alanine Aminotransferase 6 U/L (0-41); Alkaline Phosphatase 78 U/L (40-130); Anion Gap 13.3 (5-19); Aspartate Amino Transferase 18 U/L (0-40); Blood Urea Nitrogen 18 mg/dL (8-23); Calcium 7.9 mg/dL (8.5-10.5); Carbon Dioxide 21 mmol/L (22-29); Chloride 102 mmol/L (98-107); Chol HDL Ratio 3.23 mg/dL (1.0-5.00); Cholesterol 97 mg/dL (0-200); Globulin 2.5 g/dL (1.3-4.6); Glucose 126 mg/dL (65-115); HDL Cholesterol 30 mg/dL (60-100); LDL Cholesterol Calculated 50 mg/dL (50-129); Osmolality Calculated 277 mOsm/kg (285-295); Potassium 4.3 mmol/L (3.5-5.1); Sodium 132 mmol/L (136-145); Total Bilirubin 0.4 mg/dL (0.15-1.2); Total Protein 5.5 g/dL (6.6-8.7); Triglycerides 83 mg/dL (0-150); VLDL Cholestrol Calculation 17 mg/dL (0-30)
[2023-09-04] MEDS: budesonide 0.5 mg/2 mL Neb INHALATION ×2 (07:34→20:27)
[2023-09-04 08:07] LABS: Folate Level 5.8 ng/mL (4.5-32.2)
[2023-09-04] MEDS: aspirin 81 mg EC Tablet PO (09:30)
[2023-09-04] MEDS: montelukast sodium 10 mg Tablet PO (09:31)
[2023-09-04] MEDS: carvedilol 3.125 mg Tablet PO ×2 (09:31→17:03)
[2023-09-04] MEDS: pantoprazole DR 40 mg Tablet PO (09:31)
[2023-09-04] MEDS: oxyCODONE-APAP 10-325 mg Tablet PO ×3 (09:31→19:07)
[2023-09-04] MEDS: docusate sodium 100 mg Capsule PO ×2 (09:31→17:03)
[2023-09-04] MEDS: tamsulosin 0.4 mg Capsule PO (09:31)
[2023-09-04] MEDS: cyanocobalamin 1,000 mcg/mL SDV 1000 MCG IM (09:32)
--- NOTE | 2023-09-04 10:15 | P.PN_ITS ---
Subjective 2 Subjective: Patient sitting up in chair having pain in his back. At this point I adjusted his pain meds increasing his to oxycodone tens 1-2 every 4 to 6 and OxyContin 10 every 12 hours. Drain has minimal output. Vitals/I&O/Wt Last Vital Signs Temp 98.5 F 09/04/23 08:00 Pulse 74 09/04/23 08:00 Resp 18 09/04/23 09:31 BP 113/70 09/04/23 08:00 Pulse Ox 96 09/04/23 09:31 O2 Del Method Room Air 09/04/23 08:00 O2 Flow Rate 3 09/04/23 02:24 09/03/23 09/04/23 09/04/23 22:59 06:59 14:59 Intake Total 390 / 970.6 120 / 1090.6 Output Total 175 / 775 1050 / 1825 100 / 100 Balance 215 / 195.6 -930 / -734.4 -100 / -100 Weight last 48 hrs Weight 295 lb 8 oz Weight 296 lb 8 oz Physical Exam 2 Narrative: Patient sitting up in chair legs feel stronger no pain in his legs. All pain is in his back. Urinary Catheter Management: Kowalski: Cath Placed During This Visit: yes Reason for Continuing Indwelling Catheter: Required Immobilization for Trauma or Surgery or Anesthesia Urinary Catheter Date of Insertion: 09/02/23 Urinary Catheter Time of Insertion: 07:25 Data 09/04/23 05:45 09/04/23 05:45 A&P Assessment and plan (1) Encounter for postoperative care: Patient is status post thoracolumbar fusion Increased pain meds Ambulate with physical therapy DC drain Attestations 2 Medical Necessity Statement*: pain control Coding Level of Care Code Acute Code for Chg Fwd Diagnoses Encounter for postoperative care Z48.89
--- NOTE | 2023-09-04 10:30 | PC.NURSE ---
This nurse removed hemovac drain per Dr. Mancia at 1025am. Sterile 4x4 applied with tape. Pt tolerated well.
--- NOTE | 2023-09-04 11:26 | PC.SOCIAL ---
Pg 2 IMM Explained to pt Pg 2 IMM. No questions voiced. Provided pt a copy. Initialed, dated, & timed a copy & placed in chart.
--- NOTE | 2023-09-04 13:38 | P.PN_ITS ---
Subjective 2 Subjective: Documents overnight. Patient has remained hemodynamically stable and afebrile. As per patient pain scale up to 10. Drain removed by primary team. Patient denies any nausea vomiting, headache, dizziness. Working with physical therapy. Vitals/I&O/Wt Last Vital Signs Temp 97.4 F L 09/04/23 11:32 Pulse 75 09/04/23 13:32 Resp 16 09/04/23 13:32 BP 114/70 09/04/23 11:32 Pulse Ox 94 09/04/23 13:32 O2 Del Method Room Air 09/04/23 13:32 O2 Flow Rate 3 09/04/23 02:24 09/03/23 09/04/23 09/04/23 22:59 06:59 14:59 Intake Total 390 / 970.6 120 / 1090.6 240 / 240 Output Total 175 / 775 1050 / 1825 100 / 100 Balance 215 / 195.6 -930 / -734.4 140 / 140 Weight last 48 hrs Weight 134.037 kg Weight 134.49 kg Physical Exam 2 Narrative: General: No acute distress, AO x3, HEENT: PERRLA, pupils bilaterally equal and reactive Chest: Normal vesicular breath sounds, no added sounds, equal good air entry bilaterally CVS: S1-S2 regular, no murmurs, no tachycardia, no gallops, no rubs Abdomen: Soft, nontender, no organomegaly, bowel sounds present Neuro: No focal deficits, no facial deformity, AO x3, power 5/5 in all limbs Urinary Catheter Management: Kowalski: Cath Placed During This Visit: yes Reason for Continuing Indwelling Catheter: Required Immobilization for Trauma or Surgery or Anesthesia Urinary Catheter Date of Insertion: 09/02/23 Urinary Catheter Time of Insertion: 07:25 Data 09/04/23 05:45 09/04/23 05:45 A&P Assessment and plan (1) Encounter for postoperative care: Appreciate blood work. Hemoglobin stable. Continue with physical therapy, anticoagulation as per primary team, perioperative antibiotics which should be stopped later in the day today. Monitor H&H daily. (2) Hypertension: Goal blood pressure less than 140/90 mmHg. Blood pressure soft to stable for now. Will restart Coreg at low-dose 3.125 mg twice daily. Hold all other antihypertensives for now. Qualifiers: Hypertension type: primary hypertension Qualified Code(s): I10 - Essential (primary) hypertension (3) Intermittent atrial fibrillation: Continue to monitor. Patient is to be on carvedilol at home 6.25 twice daily. Restarting Coreg as above. Appreciate electrocardiogram. (4) Chronic respiratory failure with hypoxia: Most likely in setting of congestive heart failure and baseline asthma. Patient states his dyspnea on exertion has been getting worse lately. Hypoxia so far resolved. Continue with Pulmicort twice daily, DuoNebs every 4 hours. Patient seems euvolemic. IV fluids stopped. Holding off on Lasix. (5) Atherosclerotic heart disease of [place] coronary artery without angina pectoris: Qualifiers: [place] vs. transplanted heart: [place] heart Qualified Code(s): I25.10 - Atherosclerotic heart disease of [place] coronary artery without angina pectoris (6) Congestive heart failure: Qualifiers: Heart failure type: diastolic Heart failure chronicity: chronic Qualified Code(s): I50.32 - Chronic diastolic (congestive) heart failure (7) H/O cardiac radiofrequency ablation: (8) Pacemaker: (9) Presence of Watchman left atrial appendage closure device: (10) Asthma: Plan Hyperkalemia: Repeat potassium levels normal. Resolved. Medical reconciliation done for hyperkalemic medications. Hold off on spironolactone and losartan for now. Repeat potassium level in afternoon. Will repeat treatment as per the levels in the afternoon. Appreciate recent A1c, iron panel. Will repeat TSH, lipid panel and B12, folate levels. Full code Carb consistent diet once okay with primary Anticoagulation as per primary team PT Plan for the day: Hyperkalemia has resolved. Monitor BMP daily. Continue physical therapy and pain medication as per primary team. Pain medications changed today. Hemoglobin trending down to 8.9. Will transfuse once less than 8. Repeat CBC in AM. Blood pressures borderline normal off antihypertensives. Continue to hold off on antihypertensives except Coreg 3.125 mg twice daily started yesterday. Patient is stable to be transferred to medical surgery floor once okay with primary team. Plan discussed in detail with patient's RN at bedside. Care discussed in detail with the patient at bedside. All the questions were answered. Thank you for involving us in care of of Mr. Silveira. Please call back with any questions. Attestations 2 Medical Necessity Statement*: Requires further hospitalization for postoperative care postlaminectomy while patient continues with physical therapy and hemoglobin monitoring postoperatively. Diagnoses Encounter for postoperative care Z48.89 Primary hypertension I10 Hypertension type: primary hypertension Intermittent atrial fibrillation I48.0 Chronic respiratory failure with hypoxia J96.11 Atherosclerosis of [place] coronary artery of [place] heart without angina pectoris I25.10 [place] vs. transplanted heart: [place] heart Chronic diastolic congestive heart failure I50.32 Heart failure type: diastolic Heart failure chronicity: chronic H/O cardiac radiofrequency ablation Z98.890 Pacemaker Z95.0 Presence of Watchman left atrial appendage closure device Z95.818 Asthma J45.909
[2023-09-05] VITALS (10 sets, daily range): BP systolic 117–139; BP diastolic 70–89; PULSE 19–93; RESP 15–18; TEMP 36.6–36.9; O2SAT 94–98
[2023-09-05] MEDS: oxyCODONE-APAP 10-325 mg Tablet PO ×2 (02:08→07:34)
[2023-09-05] MEDS: ipratropium-albuterol 3 mL Neb INHALATION ×2 (03:05→07:57)
[2023-09-05] MEDS: levothyroxine 137 mcg Tablet PO (04:01)
[2023-09-05 04:54] LABS: Basophils % 0.4 %; Eosinophils # 0.1 10^3/uL (0.0-0.8); Eosinophils % 1.8 %; Hematocrit 28.5 % (37-53); Lymphocytes % 13.8 %; Mean Corpuscular HGB Conc 30.9 g/dL (30-55); Mean Corpuscular Hemoglobin 25.4 pg (27-33); Mean Corpuscular Volume 82.1 fl (82-101); Mean Platelet Volume 10.2 fL (7.4-10.4); Monocytes # 0.6 10^3/uL (0.2-0.9); Neutrophils # 5.34 10^3/uL (1.8-7.7); Neutrophils % 74.7 %; Nucleated Red Blood Cells % 0 %; Platelet Count 157 10^3/cmm (157-399); Red Blood Count 3.47 10^6/uL (3.85-5.65); Red Cell Distribution Width 15.9 % (12.1-15.1); White Blood Count 7.15 10^3/uL (3.29-11.43)
[2023-09-05 05:16] LABS: Alanine Aminotransferase < 5 U/L (0-41); Albumin Level 3.1 g/dL (3.5-5.2); Alkaline Phosphatase 81 U/L (40-130); Anion Gap 13.3 (5-19); Aspartate Amino Transferase 15 U/L (0-40); Blood Urea Nitrogen 15 mg/dL (8-23); Calcium 8.2 mg/dL (8.5-10.5); Carbon Dioxide 21 mmol/L (22-29); Chloride 104 mmol/L (98-107); Globulin 2.6 g/dL (1.3-4.6); Glucose 114 mg/dL (65-115); Osmolality Calculated 280 mOsm/kg (285-295); Potassium 4.3 mmol/L (3.5-5.1); Sodium 134 mmol/L (136-145); Total Bilirubin 0.6 mg/dL (0.15-1.2); Total Protein 5.7 g/dL (6.6-8.7)
[2023-09-05] MEDS: cholecalciferol (vitamin D3) 1,000 unit Tablet 2000 UNIT PO (06:29)
[2023-09-05] MEDS: budesonide 0.5 mg/2 mL Neb INHALATION (07:57)
[2023-09-05] MEDS: carvedilol 3.125 mg Tablet PO (09:09)
[2023-09-05] MEDS: docusate sodium 100 mg Capsule PO (09:09)
[2023-09-05] MEDS: montelukast sodium 10 mg Tablet PO (09:09)
[2023-09-05] MEDS: tamsulosin 0.4 mg Capsule PO (09:09)
[2023-09-05] MEDS: pantoprazole DR 40 mg Tablet PO (09:09)
[2023-09-05] MEDS: aspirin 81 mg EC Tablet PO (09:09)
--- NOTE | 2023-09-05 09:50 | PM.DCS ---
Discharge Providers Date of Admission: 09/02/23 18:05 Date of Discharge: September 05, 2023 Attending Provider at Admission: Mitesh Mancia DO Attending Provider at Discharge: Mitesh Mancia DO Primary Care Provider: Emil Oliveira DO Diagnoses at Discharge Discharge Diagnosis (1) Encounter for postoperative care: Status: Acute (2) Hypertension: Status: Chronic Qualifiers: Hypertension type: primary hypertension Qualified Code(s): I10 - Essential (primary) hypertension (3) Intermittent atrial fibrillation: Status: Chronic (4) Chronic respiratory failure with hypoxia: Status: Chronic (5) Atherosclerotic heart disease of [place] coronary artery without angina pectoris: Status: Chronic Qualifiers: [place] vs. transplanted heart: [place] heart Qualified Code(s): I25.10 - Atherosclerotic heart disease of [place] coronary artery without angina pectoris (6) Congestive heart failure: Status: Chronic Qualifiers: Heart failure type: diastolic Heart failure chronicity: chronic Qualified Code(s): I50.32 - Chronic diastolic (congestive) heart failure Permanent problem details: Systolic and diastolic. EF of 34% on echocardiogram from 12/2020. EF of 60% on echocardiogram from 12/2021. (7) H/O cardiac radiofrequency ablation: Status: Chronic Permanent problem details: x 2 (8) Pacemaker: Status: Chronic (9) Presence of Watchman left atrial appendage closure device: Status: Chronic (10) Asthma: Status: Chronic Reason for Visit Reason for Visit: Z98.4 Physical Exam Narrative: Patient pain control sitting in bed. Doing well. Urinary Catheter Management: Kowalski: Cath Placed During This Visit: yes Reason for Continuing Indwelling Catheter: Other Urinary Catheter Date of Insertion: 09/02/23 Urinary Catheter Time of Insertion: 07:25 Discharge Data Studies Completed and Pending Completed Studies During Hospitalization Category Date Time Status XR chest 1V portable [id number] Routine Exams 09/02/23 18:17 Completed XR lumbar spine 2-3V* [id number] Routine Exams 09/02/23 Completed Pending at discharge Category Date Time Status Hemoglobin and Hematocrit AM LABS Lab 09/02/23 12:21 Uncollected Radiology Impressions Chest X-Ray 09/02/23 18:17 IMPRESSION: 1. Cardiomegaly. 2. Left lower lobe atelectasis versus minimal infiltrate. 3. Left-sided pacemaker. Laboratory Results WBC 7.15 10^3/uL (3.29-11.43) 12/02/23 04:17 RBC 3.47 10^6/uL (3.85-5.65) L 09/05/23 04:17 Hgb 8.80 g/dL (11.27-16.99) L 09/05/23 04:17 Hct 28.5 % (37-53) L 09/05/23 04:17 MCV 82.1 fl (82-101) 09/05/23 04:17 MCH 25.4 pg (27-33) L 09/05/23 04:17 MCHC 30.9 g/dL (30-55) 09/05/23 04:17 RDW 15.9 % (12.1-15.1) H 09/05/23 04:17 Plt Count 157 10^3/cmm (157-399) 09/05/23 04:17 MPV 10.2 fL (7.4-10.4) 09/05/23 04:17 Neut % (Auto) 74.7 % 09/05/23 04:17 Lymph % (Auto) 13.8 % 09/05/23 04:17 Geary % (Auto) 9.0 % 09/05/23 04:17 Eos % (Auto) 1.8 % 09/05/23 04:17 Baso % (Auto) 0.4 % 09/05/23 04:17 Neut # (Auto) 5.34 10^3/uL (1.8-7.7) 09/05/23 04:17 Lymph # (Auto) 1.0 10^3/uL (0.8-4.8) 09/05/23 04:17 Geary # (Auto) 0.6 10^3/uL (0.2-0.9) 09/05/23 04:17 Eos # (Auto) 0.1 10^3/uL (0.0-0.8) 09/05/23 04:17 Baso # (Auto) 0.0 10^3/uL (0.0-0.1) 09/05/23 04:17 Nucleated RBC % (auto) 0 % 09/05/23 04:17 Nucleated RBCs # 0.0 /100WBC 09/05/23 04:17 Sodium 134 mmol/L (136-145) L 09/05/23 04:17 Potassium 4.3 mmol/L (3.5-5.1) 09/05/23 04:17 Chloride 104 mmol/L (98-107) 09/05/23 04:17 Carbon Dioxide 21 mmol/L (22-29) L 09/05/23 04:17 Anion Gap 13.3 (5-19) 09/05/23 04:17 BUN 15 mg/dL (8-23) 09/05/23 04:17 Creatinine 0.9 mg/dL (0.7-1.2) 09/05/23 04:17 GFR Calculation Not Reportable 09/05/23 04:17 Glucose 114 mg/dL (65-115) 09/05/23 04:17 POC Glucose 122 mg/dL (70-110) H 09/02/23 07:01 Calculated Osmolality 280 mOsm/kg (285-295) L 09/05/23 04:17 Calcium 8.2 mg/dL (8.5-10.5) L 09/05/23 04:17 Iron 47 ug/dL (59-158) L 09/02/23 20:50 TIBC 301 mcg/dl 09/02/23 20:50 % Saturation 15.6 % (20-50) L 09/02/23 20:50 Unsat Iron Binding 254 ug/dL (112-347) 09/02/23 20:50 Total Bilirubin 0.6 mg/dL (0.15-1.2) 09/05/23 04:17 AST 15 U/L (0-40) 09/05/23 04:17 ALT < 5 U/L (0-41) 09/05/23 04:17 Alkaline Phosphatase 81 U/L (40-130) 09/05/23 04:17 Total Protein 5.7 g/dL (6.6-8.7) L 09/05/23 04:17 Albumin 3.1 g/dL (3.5-5.2) L 09/05/23 04:17 Globulin 2.6 g/dL (1.3-4.6) 09/05/23 04:17 Triglycerides 83 mg/dL (0-150) 09/04/23 05:45 Cholesterol 97 mg/dL (0-200) 09/04/23 05:45 LDL Cholesterol, Calc 50 mg/dL (50-129) 09/04/23 05:45 Total VLDL Cholesterol 17 mg/dL (0-30) 09/04/23 05:45 HDL Cholesterol 30 mg/dL (60-100) L 09/04/23 05:45 Cholesterol/HDL Ratio 3.23 mg/dL (1.0-5.00) 09/04/23 05:45 Vitamin B12 186 pg/mL (232-1245) L 09/03/23 03:25 Folate 5.8 ng/mL (4.5-32.2) 09/04/23 05:45 TSH 0.78 uIU/mL (0.27-4.20) 09/03/23 03:25 Blood Type A Negative 09/02/23 06:50 Rho(D) Type Negative 09/02/23 06:50 Antibody Screen Negative 09/02/23 06:50 Crossmatch See Detail 09/02/23 06:50 Vitals Last Vital Signs Temp 98 F 09/05/23 08:06 Pulse 74 09/05/23 08:06 Resp 18 09/05/23 08:06 BP 122/73 09/05/23 08:06 Pulse Ox 98 09/05/23 08:06 O2 Del Method Room Air 09/05/23 08:06 O2 Flow Rate 3 09/04/23 20:30 Discharge Plan Discharge Patient Disposition: Home Condition: Stable Prescriptions: New OxyContin 10 mg tablet,oral only,ext.rel.12 hr 10 mg PO Q12H 7 Days Qty: 14 0RF oxycodone 5 mg tablet 5 - 10 mg PO Q4H PRN (Reason: pain) 7 Days Qty: 40 0RF Continued cetirizine [Zyrtec] 10 mg tablet 10 mg PO DAILY PRN (Reason: allergy symptoms) Qty: 20 0RF montelukast [Singulair] 10 mg tablet 10 mg PO DAILY Qty: 30 3RF albuterol sulfate 2.5 mg /3 mL (0.083 %) solution for nebulization 2.5 mg continuous nebulization QID PRN (Reason: shortness of breath or wheezing) aspirin [Adult Aspirin Regimen] 81 mg tablet,delayed release (DR/EC) 81 mg PO DAILY Hold Instructions: Resume on 06/17/22. losartan 50 mg tablet 50 mg PO DAILY furosemide 40 mg tablet 20 mg PO DAILY PRN (Reason: Edema) carvedilol 12.5 mg tablet 6.25 mg PO BID (DME) Bone Growth Stimulator E0748 See Rx Instructions .Route .MEDSUPPLY Qty: 1 0RF Rx Instructions: As directed levothyroxine [Synthroid] 137 mcg Tablet 137 mcg PO DAILY@04 modafinil [Provigil] 200 mg Tablet 200 mg PO DAILY@06 cholecalciferol (vitamin D3) [Vitamin D3] 50 mcg (2,000 unit) Capsule 50 mcg PO DAILY@06 tamsulosin 0.4 mg capsule 0.4 mg PO DAILY pantoprazole 40 mg tablet,delayed release (DR/EC) 40 mg PO BID spironolactone 25 mg tablet 12.5 mg PO DAILY 30 Days Qty: 30 5RF fluticasone propion-salmeterol [Advair Diskus] 250-50 mcg/dose blister with device 2 inh inhalation BID PRN (Reason: Shortness Of Breath) potassium chloride [Klor-Con M20] 20 mEq tablet,ER particles/crystals 20 meq PO DAILY PRN (Reason: lasix) fluticasone propionate [Flonase Allergy Relief] 50 mcg/actuation spray,suspension 1 spray intranasal BID PRN (Reason: Congestion) Rx Instructions: administer into each nostril Discharge Orders: Discharge Order (Routine); Ordered 09/05/23 Ordered By: Mitesh Mancia Referrals: Mitesh Mancia, [Physician] - 09/17/23 1:45 pm Discharge Diet: Advance as tolerated Discharge Activity: Limit activity as instructed Patient Instructions: Opioid Safety Activity Restrictions/Additional Instructions: Thank you for [facility] for your care! The following is a list of instructions, from your provider, to follow upon your discharge to ensure you have the optimal recovery from your recent injury orsurgery. Follow-up care is a [place] part of your treatment and safety. Be sure to make and go to all appointments, and call your doctor if you are having problems. If you do not already have a follow-up appointment made, call Dr. Mancia office in the next 1-3 days to make follow up appointment for 1 weeks at [phone]. It is also a good idea to know your test results and keep a list of the medicines you take. Medications will be prescribed for you at your provider's discretion. These medications are to be used as instructed; if they are taken more often that prescribed they will not be refilled early and in most cases will not be refilled at all. > When a refill is needed,you should contact shirley jeronimo 2-3 business days before your prescription runs out. Medications will NOT be refilled by education rn providers after hours! > Many pain medications contain Tylenol (Acetaminophen). Do not consume more than 4,000 mg of Tylenol per day in total with any combination ofmedications. > Pain medications can cause constipation. Please use an over the counter stool softener as directed, while taking pain medications. Consulty our local pharmacist with questions or recommendations on stool softeners. If constipation persists, contact our office or your primary care provider. > While under our care,you are not to receive pain medications or other controlled substances from any other provider unless our office is notified and approves. Any attempts to do so will result in refusal to prescribe any further pain medications and possible dismissal from our practice. ? Your wound and/or dressing should remain clean and dry for 2 days after surgery. On postoperative day 2 (48 hours after your surgery) the dressing (if present) should be removed and it is okay to shower and get the incision wet. Pad dry afterwards. No further dressing should be required from that point on. Do not put any creams or ointments on theincision > It is normal for there to be a small amount of discharge (bloody or blood tinged) present from a surgical wound for the first 1-3days. > The wound should be examined twice a day for signs of infection. Mild redness or bruising is to be expected but indications that an infection maybe starting would include; An increase in redness, swelling, or discharge, a foul odor present around the incision, and/or a fever greater than 101 ?F ? Showering is permitted, however we ask that you do not take a bath, sit in a whirlpool / Jacuzzi, or go swimming for 1 month. For only the first 2 days after surgery, lt wilt be necessary for you to cover your wound/dressing with plastic and tape to keep it dry. ? Walking is essential for the healing process after surgery. We would like you to slowly advance your walking. This should be done on relatively flat clear ground (inside or out) or can be done on a treadmill. Remember this goal does not have to happen all at once, slowly increase your distance and duration. This can be broken into more more than one walk per day as tolerated. Patients who walk as directed after surgery rarely require Physical Therapy. In the unlikely event this issue arises your provider will direct hospital staff to make the appropriate arrangements. ? No lifting over 5 pounds {a gallon of milk) or bending/twisting until further notice. Each of these activities places an unnecessary amount of stress onto the body and can impede the delicate healing process. > Instead of bending at the waist, keep your back straight and bend at the knees. > Instead of twisting your torso, keep your back straight and turn your entire body with your feet. ? You may sleep in any position which makes you comfortable. Many patients find comfort sleeping in a reclining chair. It is not abnormal to have difficulty sleeping for the first several weeks following your surgery. We recommend trying Benadry! or Tylenol PM as directed to help with your sleeping difficulties. Both medications are over the counter and available withoutprescription. ? NO SMOKING!!! Smoking dramatically increases the probability of developing postoperative wound infections. ? Common complaints after lumbar and/or thoracic spine surgery include, but are not limited to: numbness and/or tingling in the legs, pain around the incision and surrounding tissues, muscle spasms, or stiffness of the middle to low back. Contact our office if these symptoms persist or if an acute change occurs. ? No driving for the first 3-5days, and not while taking narcotics until seen at your follow-up appointment and cleared. There are no restrictions for riding on short trips, however if you take a longer trip, arrangements should be made to make regular stops to get out of the vehicle and stretch . ? Swelling is an unfortunate event that will take place with any surgery and is the primary source of your postoperative discomfort. While walking and regular approved activities helps control inflammation, there are additional steps you can take to minimizeswelling. > Place ice over the surgical site and surrounding tissue for twenty minutes, followed by applying a low/medium heat (heating pad) for an additional twenty minutes every 1-2 hours as needed for painrelief. > You may use of over the counter anti-inflammatory medications (Ibuprofen, Motrin, Aleve, Advil, etc) as directed on the package label. These types of medicines wm significantly reduce the amount of discomfort you experience after surgery from swelling. It should be noted that if you have and allergy to any of these medications, or a history of ulcers or kidney disease you should consult you primary care provider prior to starting these medications. Discharge Attestations Time Spent in Discharge Care*: less than 30 min Quality Metrics Clinical Quality Measures [ No reported AMI, CVA or VTE this stay] Coding Level of Care Code Acute Code for Chg Fwd Diagnoses Encounter for postoperative care Z48.89 Primary hypertension I10 Hypertension type: primary hypertension Intermittent atrial fibrillation I48.0 Chronic respiratory failure with hypoxia J96.11 Atherosclerosis of [place] coronary artery of [place] heart without angina pectoris I25.10 [place] vs. transplanted heart: [place] heart Chronic diastolic congestive heart failure I50.32 Heart failure type: diastolic Heart failure chronicity: chronic H/O cardiac radiofrequency ablation Z98.890 Pacemaker Z95.0 Presence of Watchman left atrial appendage closure device Z95.818 Asthma J45.909
--- NOTE | 2023-09-05 13:03 | PM.PN ---
Subjective Subjective: Patient was discharged by the primary team before could be seen or examined today. As per the nurses no acute events overnight. Patient did have pain postoperatively but better than yesterday. Has remained hemodynamically stable and afebrile. Blood work appreciated. Vitals/I&O/Wt Last Vital Signs Temp 98.4 F 09/05/23 10:53 Pulse 75 09/05/23 10:53 Resp 18 09/05/23 10:53 BP 117/70 09/05/23 10:53 Pulse Ox 94 09/05/23 10:53 O2 Del Method Room Air 09/05/23 10:18 O2 Flow Rate 3 09/04/23 20:30 09/04/23 09/05/23 09/05/23 22:59 06:59 14:59 Intake Total 240 / 480 120 / 120 Output Total 1025 / 1125 300 / 1425 Balance -785 / -645 -300 / -945 120 / 120 Weight last 48 hrs Weight 134.915 kg Weight 134.037 kg Physical Exam Narrative: Patient discharged before could be examined today Urinary Catheter Management: Kowalski: Cath Placed During This Visit: yes, but has since been removed by the nurse Reason for Continuing Indwelling Catheter: Other Urinary Catheter Date of Insertion: 09/02/23 Urinary Catheter Time of Insertion: 07:25 Date Urinary Catheter Removed: 09/05/23 Time Urinary Catheter Discontinued: 09:30 Data 09/05/23 04:17 09/05/23 04:17 A&P Assessment and plan (1) Encounter for postoperative care: Appreciate blood work. Hemoglobin stable. Continue with physical therapy, anticoagulation as per primary team, perioperative antibiotics which should be stopped later in the day today. Monitor H&H daily. (2) Hypertension: Goal blood pressure less than 140/90 mmHg. Blood pressure soft to stable for now. Will restart Coreg at low-dose 3.125 mg twice daily. Hold all other antihypertensives for now. Qualifiers: Hypertension type: primary hypertension Qualified Code(s): I10 - Essential (primary) hypertension (3) Intermittent atrial fibrillation: Continue to monitor. Patient is to be on carvedilol at home 6.25 twice daily. Restarting Coreg as above. Appreciate electrocardiogram. (4) Chronic respiratory failure with hypoxia: Most likely in setting of congestive heart failure and baseline asthma. Patient states his dyspnea on exertion has been getting worse lately. Hypoxia so far resolved. Continue with Pulmicort twice daily, DuoNebs every 4 hours. Patient seems euvolemic. IV fluids stopped. Holding off on Lasix. (5) Atherosclerotic heart disease of [place] coronary artery without angina pectoris: Qualifiers: [place] vs. transplanted heart: [place] heart Qualified Code(s): I25.10 - Atherosclerotic heart disease of [place] coronary artery without angina pectoris (6) Congestive heart failure: Qualifiers: Heart failure type: diastolic Heart failure chronicity: chronic Qualified Code(s): I50.32 - Chronic diastolic (congestive) heart failure (7) H/O cardiac radiofrequency ablation: (8) Pacemaker: (9) Presence of Watchman left atrial appendage closure device: (10) Asthma: Plan Hyperkalemia: Repeat potassium levels normal. Resolved. Medical reconciliation done for hyperkalemic medications. Hold off on spironolactone and losartan for now. Repeat potassium level in afternoon. Will repeat treatment as per the levels in the afternoon. Appreciate recent A1c, iron panel. Will repeat TSH, lipid panel and B12, folate levels. Full code Carb consistent diet once okay with primary Anticoagulation as per primary team PT Plan for the day: Patient was discharged before could be examined today. Blood work appreciated for a stable hemoglobin, resolution of hyperkalemia. His blood pressures still remain low normal. It seems patient was discharged on all his home antihypertensives. Medical reconciliation was again done. Antihypertensive including losartan and spironolactone have been withheld, dose of Coreg has been changed to 3.125 mg twice daily. Medication has been sent over to pharmacy. Nurse has been informed to get in touch with patient regarding changes in medications. Patient was also counseled over the phone about checking his blood pressures daily and maintaining a blood pressure diary and follow-up with a primary care provider within next 10 days for further adjustment of antihypertensives. Patient is stable to be transferred to medical surgery floor once okay with primary team. Plan discussed in detail with patient's RN at bedside. Care discussed in detail with the patient at bedside. All the questions were answered. Thank you for involving us in care of of Mr. Silveira. Please call back with any questions. Attestations Medical Necessity Statement*: Patient discharged as per primary team. Diagnoses Encounter for postoperative care Z48.89 Primary hypertension I10 Hypertension type: primary hypertension Intermittent atrial fibrillation I48.0 Chronic respiratory failure with hypoxia J96.11 Atherosclerosis of [place] coronary artery of [place] heart without angina pectoris I25.10 [place] vs. transplanted heart: [place] heart Chronic diastolic congestive heart failure I50.32 Heart failure type: diastolic Heart failure chronicity: chronic H/O cardiac radiofrequency ablation Z98.890 Pacemaker Z95.0 Presence of Watchman left atrial appendage closure device Z95.818 Asthma J45.909
== END 2023-09-05 10:54 | disposition home or self-care (01) | DRG 454 ==
LOC: ICU 18:07 → MEDSURG 09-03 15:23
PROVIDERS: Anesthesiology; Student in an Organized Health Care Education/Training Program; Admitting Provider Orthopaedic Surgery; PCP Emergency Medicine Emergency Medical Services; Visit Provider Orthopaedic Surgery
PROC: 0RG207J Fusion of 2 or more Cervical Vertebral Joints with Autologous Tissue Substitute, Posterior Approach, Anterior Column, Open Approach (ICD-10-PCS; principal; 2023-09-02 07:00)
PROC: 0RG207J Fusion of 2 or more Cervical Vertebral Joints with Autologous Tissue Substitute, Posterior Approach, Anterior Column, Open Approach (ICD-10-PCS; CPT 63005; 2023-09-02 07:00)
PROC: 0RG207J Fusion of 2 or more Cervical Vertebral Joints with Autologous Tissue Substitute, Posterior Approach, Anterior Column, Open Approach (ICD-10-PCS; CPT 27280; 2023-09-02 07:00)
DX: M48.062 Spinal stenosis, lumbar region with neurogenic claudication (principal); D62 Acute posthemorrhagic anemia; I50.42 Chronic combined systolic (congestive) and diastolic (congestive) heart failure; T84.226A Displacement of internal fixation device of vertebrae, initial encounter; Z68.42 Body mass index [BMI] 45.0-49.9, adult; J96.11 Chronic respiratory failure with hypoxia; Y79.8 Miscellaneous orthopedic devices associated with adverse incidents, not elsewhere classified; M40.209 Unspecified kyphosis, site unspecified; Z79.82 Long term (current) use of aspirin; J45.909 Unspecified asthma, uncomplicated; I48.91 Unspecified atrial fibrillation; N40.0 Benign prostatic hyperplasia without lower urinary tract symptoms; I11.0 Hypertensive heart disease with heart failure; Z86.16 Personal history of COVID-19; E11.21 Type 2 diabetes mellitus with diabetic nephropathy; E11.51 Type 2 diabetes mellitus with diabetic peripheral angiopathy without gangrene; E78.5 Hyperlipidemia, unspecified; E03.9 Hypothyroidism, unspecified; G47.419 Narcolepsy without cataplexy; G47.33 Obstructive sleep apnea (adult) (pediatric); Z77.22 Contact with and (suspected) exposure to environmental tobacco smoke (acute) (chronic); Z95.0 Presence of cardiac pacemaker; I25.10 Atherosclerotic heart disease of native coronary artery without angina pectoris; E66.01 Morbid (severe) obesity due to excess calories; E87.6 Hypokalemia; Z99.81 Dependence on supplemental oxygen; M72.0 Palmar fascial fibromatosis [Dupuytren]
CPT/HCPCS: 36415; 36416; 36430; 51702; 71045; 72100; 76000; 80053; 80061; 82607; 82746; 82962; 83540; 83550; 84443; 85014; 85018; 85025; 86850; 86900; 86920; 94640; 96372; 96376; 97110; 97116; 97162; 97530; C1713; J0131; J0330; J0690; J1100; J1170; J1644; J1815; J2270; J2371; J2405; J2704; J2710; J3010; J3370; J3420; J3490; J7030; J7120; J7626; P9016; P9045; Q3014

== ENCOUNTER → 2023-09-16 10:35 | Outpatient (BNVA) | payer OTHER, SELFPAY | PROVIDERS: PCP Emergency Medicine Emergency Medical Services; Visit Provider Physician Assistant | DX: Z47.89 Encounter for other orthopedic aftercare (principal); Z98.1 Arthrodesis status | CPT/HCPCS: 72072; 72100; 99024 ==

== ENCOUNTER → 2023-10-13 10:34 | Outpatient (BNVA) | payer OTHER, SELFPAY | PROVIDERS: PCP Emergency Medicine Emergency Medical Services; Visit Provider Orthopaedic Surgery | DX: Z98.1 Arthrodesis status (principal); Z47.89 Encounter for other orthopedic aftercare | CPT/HCPCS: 72070; 72100; 99024 ==

== ENCOUNTER 2023-10-31 14:29 | Observation (INO) | payer OTHER, SELFPAY ==
[2023-10-31] VITALS (10 sets, daily range): BP systolic 110–130; BP diastolic 69–75; PULSE 73–101; RESP 15–26; TEMP 36.6–37; O2SAT 92–99; BMI 42.5
--- NOTE | 2023-10-31 15:23 | XRR_ITS ---
PROCEDURE INFORMATION: Exam: XR Chest Exam date and time: 10/31/2023 3:35 PM Age: 77 years old Clinical indication: Dyspnea TECHNIQUE: Imaging protocol: Radiologic exam of the chest. Views: 1 view. COMPARISON: CR XR chest 1V portable [id number] 09/02/2023 9:15 PM FINDINGS: Lungs: No focal consolidation. Mild bronchial wall thickening and hazy opacities in the mid right lung raising the question of developing bronchopneumonia. Pleural spaces: No evidence of pneumothorax or pleural effusion. Heart/Mediastinum: Left subclavian approach dual-chamber pacemaker. Cardiomediastinal silhouette is within normal limits. Bones/joints: No evidence of acute osseous abnormality. Partially visualized lumbar fusion hardware. XR/XR chest 1V portable [id number] IMPRESSION: 1. Mild bronchial wall thickening and hazy opacities in the mid right lung raising the question of developing bronchopneumonia.
--- NOTE | 2023-10-31 15:24 | ECG_ITS ---
[facility] Test Date: 2023-10-31 Pat Name: Lupillo Silveira Department: Room: Gender: Male Petrologist: : 1945 Requested By: Dada Richter Order Number: [id number] Hugo MD: Jaylyn Chase M.D. Measurements Intervals [place] Rate: 75 P: 0 NM: 0 QRS: -77 QRSD: 193 T: 92 QT: 453 QTc: 506 Interpretive Statements ELECTRONIC VENTRICULAR PACEMAKER ABNORMAL RHYTHM ECG INTERPRETATION BASED ON A DEFAULT AGE OF 40 YEARS Compared to ECG 05/07/2022 09:44:44 No significant changes Electronically Signed On 10-31-2023 21:57:40 WOOD DIE MAKER by Jaylyn Chase M.D. [id number]
[2023-10-31 16:00] LABS: Basophils % 0.8 %; Eosinophils # 0.3 10^3/uL (0.0-0.8); Eosinophils % 8.4 %; Hematocrit 33.5 % (37-53); Lymphocytes # 0.9 10^3/uL (0.8-4.8); Lymphocytes % 24.6 %; Mean Corpuscular HGB Conc 28.1 g/dL (30-55); Mean Corpuscular Hemoglobin 22.7 pg (27-33); Mean Corpuscular Volume 80.7 fl (82-101); Mean Platelet Volume 9.6 fL (7.4-10.4); Monocytes # 0.3 10^3/uL (0.2-0.9); Neutrophils # 2.03 10^3/uL (1.8-7.7); Neutrophils % 56.9 %; Nucleated Red Blood Cells % 0 %; Platelet Count 187 10^3/cmm (157-399); Red Blood Count 4.15 10^6/uL (3.85-5.65); Red Cell Distribution Width 16.6 % (12.1-15.1); White Blood Count 3.57 10^3/uL (3.29-11.43)
[2023-10-31 16:13] LABS: INR 1.16 (0.8-1.2)
[2023-10-31 16:24] LABS: Troponin(5th) Baseline 16 ng/L (0-15)
[2023-10-31 16:26] LABS: Alanine Aminotransferase 7 U/L (0-41); Albumin Level 3.9 g/dL (3.5-5.2); Alkaline Phosphatase 130 U/L (40-130); Aspartate Amino Transferase 13 U/L (0-40); Blood Urea Nitrogen 10 mg/dL (8-23); Calcium 8.9 mg/dL (8.5-10.5); Carbon Dioxide 24 mmol/L (22-29); Chloride 102 mmol/L (98-107); Globulin 2.9 g/dL (1.3-4.6); Glucose 114 mg/dL (65-115); Osmolality Calculated 286 mOsm/kg (285-295); Sodium 138 mmol/L (136-145); Total Bilirubin 0.2 mg/dL (0.15-1.2); Total Protein 6.8 g/dL (6.6-8.7)
[2023-10-31 16:35] LABS: NT Pro B Type Natriuretic Pept 2330 pg/mL (0-450)
--- NOTE | 2023-10-31 16:45 | PC.PHAR ---
Addendum entered by Moni Lange 10/31/23 16:48: [facility], UNABLE TO VERIFY MED LIST WITH THEM. MEDS VERIFIED WITH PT LIST. Original Note: PT IS [facility] BUT HAS A LIST IN HIS WALLET TO PRESENT. 10/31/23
[2023-10-31 16:56] LABS: Influenza A by IFA negative (Negative); Influenza B by IFA negative (Negative); SARS Covid-2 Antigen negative (Negative)
[2023-10-31 17:20] LABS: Lactic Sepsis W/Reflex 1.3 mmol/L (0.5-2.2)
[2023-10-31 17:24] LABS: Procalcitonin 0.06 ng/mL (0-0.5)
--- NOTE | 2023-10-31 17:24 | ECG_ITS ---
[facility] Test Date: 2023-10-31 Pat Name: Lupillo Silveira Department: Room: Gender: Male Trucking Manager: : 1945 Requested By: Dada Richter Order Number: [id number] Hugo MD: Jaylyn Chase M.D. Measurements Intervals [place] Rate: 75 P: 0 TX: 0 QRS: -75 QRSD: 198 T: 74 QT: 468 QTc: 523 Interpretive Statements ELECTRONIC VENTRICULAR PACEMAKER ABNORMAL RHYTHM ECG Compared to ECG 05/07/2022 09:44:44 No significant changes Electronically Signed On 10-31-2023 22:01:47 STILL PUMP OPERATOR by Jaylyn Chase M.D. [id number]
[2023-10-31] MEDS: ipratropium-albuterol 3 mL Neb INHALATION (18:04)
--- NOTE | 2023-10-31 18:10 | ED_ITS ---
HPI - SOB/Dyspnea 2 General: Chief Complaint: Shortness of Breath/Dyspnea Stated Complaint: sob, cough Time Seen by Provider: 10/31/23 16:03 History of Present Illness: HPI Narrative: 77-year-old male presents emergency depa rtment complaints of increasing shortness of breath. He states he was seen by his primary care provider and was provided a Z-Rios that started on for 3 days. He states he has continued to have increased shortness of breath and increased wheezing. He states he is doing every 4 hour albuterol nebulizer treatments at home Associated symptoms: Reports fever(s) Review of Systems 2 Const: Reports: fever(s), chills, fatigue and malaise Card: Reports: edema and swelling of feet/ankles Resp: Reports: dyspnea and wheezing PFSH ED 2 PFSH: Medical History Diverticulosis large intestine w/o perforation or abscess w/bleeding History of colon polyps Dupuytren's disease of palm of left hand Trigger finger, right middle finger Trigger finger, left ring finger Osteoarthritis of hands, bilateral Congestive heart failure Systolic and diastolic. EF of 34% on echocardiogram from 12/2020. EF of 60% on echocardiogram from 12/2021. H/O diabetic nephropathy History of left heart catheterization (LHC) 12/2020 60 to 70% diffuse disease in the first diagonal branch of the left anterior descending artery. He had around 40 to 50% lesions in the distal left and descending artery. Minimal intimal irregularities in the RCA and the left circumflex artery. Based on angiographic findings, he was treated medically. Asthma Atherosclerotic heart disease of [place] coronary artery without angina pectoris Abnormal cardiovascular stress test Diabetes mellitus Primary osteoarthritis of knees, bilateral SHER (obstructive sleep apnea) COVID-19 Right fibular fracture Spontaneous hemorrhage This patient bled into the right calf muscle and had hematuria with Xarelto Shortness of breath on exertion Dyslipidemia Cerebral arterial aneurysm Intermittent atrial fibrillation Atrial fibrillation status post cardioversion Narcolepsy Peripheral arterial disease Hypertension Benign prostatic hyperplasia Hypothyroidism Surgical History History of colonoscopy 5 years ago History of esophagogastroduodenoscopy 30 years ago History of umbilical hernia repair (~12/2021) S/P spinal fusion H/O cardiac radiofrequency ablation x 2 Pacemaker Presence of Watchman left atrial appendage closure device History of cataract surgery Bilateral History of knee surgery Bilateral arthroscopy (multiple on each side) S/P rotator cuff repair Left Family History Other CAD (coronary artery disease) Cancer Hypertension Stroke Social History Smoking and tobacco/nicotine status: never used tobacco/nicotine Second hand smoke exposure: Yes Alcohol intake: never Substance/Drug Use: never Lives independently: Yes Household members: spouse and children Housing: House Marital status: service: Yes 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 Vital signs reviewed as documented. HENMT: Normocephalic, atraumatic. External ears normal appearance without drainage. Nose without drainage, normal appearance. Mucus membranes moist. Neck is supple, No jugular venous distension, trachea is midline, no appreciable carotid bruits. No lymphadenopathy. No meningeal signs. Flexion, extension and lateral rotation is without pain. Eyes: Pupils are equal, round, reactive to light and accommodation. No scleral icterus. Extra-ocular movement are intact. Thorax is symmetrical and with equal rise and fall with respirations. Resp: Coarse sounding throughout, significant expiratory wheezes noted. Cardio: Regular rate and rhythm. Positive S1, S2. No appreciable murmurs, rubs or gallops. GI: Abdominal exam reveals normal bowel sounds to all quadrants. No organomegaly. No obvious palpable masses noted. No hepatomegally appreciated. Soft, non-tender to palpation. Extremity: Extremities are non-edematous and both femoral and pedal pulses are 2+ and equal bilaterally. Moves all extremities well, sensation in all extremities. Neuro: Alert and oriented x4, person, place, time and situation. Cranial nerves II through XII are grossly intact, there is no focal neurological deficits that I can appreciate at present. Motor strength in the upper and lower extremities are equal and bilateral 5/5. Psych: Cooperative, calm, normal thought process, appropriate judgment. Skin: No lesions, rashes. No gross abnormalities noted. Back: Symmetrical, no obvious deformity, No CVA tenderness Course 2 Vital Signs: Vital signs: Vital Signs Temperature 98.3 F 11/01/23 15:48 Pulse Rate 76 11/01/23 16:00 Respiratory Rate 16 11/01/23 16:00 Blood Pressure 111/73 11/01/23 15:48 Pulse Oximetry 93 11/01/23 16:00 Oxygen Delivery Me thod Room Air 11/01/23 16:00 MDM - SOB/Dyspnea Medical Decision Making 77-year-old male presents with increased shortness of breath after completion of a recent Z-Rios. He states he has had increased weakness fatigue and fever as well as worsening shortness of breath. He states he has had more wheezing and feels that he has failed his outpatient antibiotic therapy. 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 Medical Records I reviewed the patient's medical records. Lab Data I reviewed the patient's lab results. 11/01/23 05:06 11/01/23 05:06 Labs/Radiology: Radiology Impressions Chest X-Ray 10/31/23 15:23 IMPRESSION: 1. Mild bronchial wall thickening and hazy opacities in the mid right lung raising the question of developing bronchopneumonia. Laboratory Results WBC 3.57 10^3/uL (3.29-11.43) 10/31/23 15:42 RBC 4.15 10^6/uL (3.85-5.65) 10/31/23 15:42 Hgb 9.40 g/dL (11.27-16.99) L 10/31/23 15:42 Hct 33.5 % (37-53) L 10/31/23 15:42 MCV 80.7 fl (82-101) L 10/31/23 15:42 MCH 22.7 pg (27-33) L 10/31/23 15:42 MCHC 28.1 g/dL (30-55) L 10/31/23 15:42 RDW 16.6 % (12.1-15.1) H 10/31/23 15:42 Plt Count 187 10^3/cmm (157-399) 10/31/23 15:42 MPV 9.6 fL (7.4-10.4) 10/31/23 15:42 Neut % (Auto) 56.9 % 10/31/23 15:42 Lymph % (Auto) 24.6 % 10/31/23 15:42 [place] % (Auto) 9.0 % 10/31/23 15:42 Eos % (Auto) 8.4 % 10/31/23 15:42 Baso % (Auto) 0.8 % 10/31/23 15:42 Neut # (Auto) 2.03 10^3/uL (1.8-7.7) 10/31/23 15:42 Lymph # (Auto) 0.9 10^3/uL (0.8-4.8) 10/31/23 15:42 [place] # (Auto) 0.3 10^3/uL (0.2-0.9) 10/31/23 15:42 Eos # (Auto) 0.3 10^3/uL (0.0-0.8) 10/31/23 15:42 Baso # (Auto) 0.0 10^3/uL (0.0-0.1) 10/31/23 15:42 Nucleated RBC % (auto) 0 % 10/31/23 15:42 Nucleated RBCs # 0.0 /100WBC 10/31/23 15:42 PT 15.20 SECONDS (12.1-14.9) H 10/31/23 15:42 INR 1.16 (0.8-1.2) 10/31/23 15:42 Sodium 138 mmol/L (136-145) 10/31/23 15:42 Potassium 4.0 mmol/L (3.5-5.1) 10/31/23 15:42 Chloride 102 mmol/L (98-107) 10/31/23 15:42 Carbon Dioxide 24 mmol/L (22-29) 10/31/23 15:42 Anion Gap 16.0 (5-19) 10/31/23 15:42 BUN 10 mg/dL (8-23) 10/31/23 15:42 Creatinine 0.9 mg/dL (0.7-1.2) 10/31/23 15:42 GFR Calculation Not Reportable 10/31/23 15:42 Glucose 114 mg/dL (65-115) 10/31/23 15:42 Estimat Average Glucose 111 10/31/23 15:42 Hemoglobin A1c 5.5 % (4.0-6.0) 10/31/23 15:42 Calculated Osmolality 286 mOsm/kg (285-295) 10/31/23 15:42 Lactic Acid 1.3 mmol/L (0.5-2.2) 10/31/23 15:42 Calcium 8.9 mg/dL (8.5-10.5) 10/31/23 15:42 Total Bilirubin 0.2 mg/dL (0.15-1.2) 10/31/23 15:42 AST 13 U/L (0-40) 10/31/23 15:42 ALT 7 U/L (0-41) 10/31/23 15:42 Alkaline Phosphatase 130 U/L (40-130) 10/31/23 15:42 Troponin T Baseline 16 ng/L (0-15) H 10/31/23 15:42 Troponin T 120 Minute 11.77 ng/L (0-15) 10/31/23 17:42 Delta Troponin T -4.23 ABS# (0-10) L 10/31/23 17:42 C-Reactive Protein 52.0 mg/L (0.0-4.9) H 10/31/23 15:42 NT-Pro-B Natriuret Pep 2330 pg/mL (0-450) H 10/31/23 15:42 Total Protein 6.8 g/dL (6.6-8.7) 10/31/23 15:42 Albumin 3.9 g/dL (3.5-5.2) 10/31/23 15:42 Globulin 2.9 g/dL (1.3-4.6) 10/31/23 15:42 Procalcitonin 0.06 ng/mL (0-0.5) 10/31/23 15:42 TSH 3.33 uIU/mL (0.27-4.20) 10/31/23 15:42 Influenza Type A Ag negative (Negative) 10/31/23 16:30 Influenza Type B Ag negative (Negative) 10/31/23 16:30 SARS-CoV-2 Ag (Rapid) negative (Negative) 10/31/23 16:30 All radiology interpretation(s) finalized by discharge EKG Data EKG 1: Interpretation: Twelve-lead EKG obtained at 1719 demonstrates ventricular paced rhythm at a rate of 75 bpm, QRS duration 198, QT 468, QTc 496. No signs of ischemia or acute infarction at present. Discharge Plan Discharge Patient Disposition: Admitted As Inpatient Admit Provider: Marisol Barker Clinical Impression: Pneumonia, Acute exacerbation of CHF (congestive heart failure) Condition: Stable Coding Level of Care Code ED Obiee Architect for Matt Rocha
[2023-10-31 18:26] LABS: Troponin 5 2HR 11.77 ng/L (0-15); Troponin 5 2HR Delta -4.23 ABS# (0-10)
[2023-10-31] MEDS: cefTRIAXone 2,000 MG in sodium chloride 0.9% (plus) 50 ML 100 MG IV (18:33)
--- NOTE | 2023-10-31 20:04 | P.HP_ITS ---
Providers/Chief Complaint 2 Primary Care Provider: Emil Oliveira DO Chief Complaint: sob, cough History of Present Illness Lupillo Silveira is a 77 year old male with a past medical history of diastolic CHF, history of asthma, history of BiPAP use during the night with oxygen, [id number] type 2 diabetes mellitus, obstructive sleep apnea, narcolepsy on modafinil , dyslipidemia, who presents to [facility] due to shortness of breath and wheezing. Patient tells me that for the last few days he is felt increasingly short of breath, with wheezing, nonproductive cough, he has completed 3 days of outpatient p.o. azithromycin continues to feel short of breath, continues to have wheezing, nonproductive cough Review of Systems 2 Const: Denies: fever(s) or chills Eyes: Denies: change in vision Card: Denies: chest pain Resp: Reports: dyspnea and non-productive cough GI: Denies: abdominal pain : Denies: flank pain Neuro: Denies: headache(s) Medications/Allergies Home Medications Medication Instructions Recorded Confirmed Last Taken Type cholecalciferol (vitamin D3) 50 50 mcg PO QPM 12/11/19 10/31/23 10/30/23 History mcg (2,000 unit) capsule (Vitamin D3) levothyroxine 137 mcg tablet 137 mcg PO DAILY@04 12/11/19 10/31/23 10/31/23 History (Synthroid) modafinil 200 mg tablet (Provigil) 200 mg PO DAILY@06 12/11/19 10/31/23 10/31/23 History tamsulosin 0.4 mg capsule 0.4 mg PO DAILY 07/17/20 10/31/23 10/30/23 History albuterol sulfate 2.5 mg/3 mL 2.5 mg continuous nebulization QID 12/12/20 10/31/23 08/30/23 History (0.083 %) solution for nebulization PRN shortness of breath or wheezing aspirin 81 mg tablet,delayed 81 mg PO DAILY 12/27/20 10/31/23 10/31/23 History release (Adult Aspirin Regimen) cetirizine 10 mg tablet (Zyrtec) 10 mg PO DAILY PRN allergy 01/09/21 10/31/23 10/30/23 Rx symptoms #20 tabs montelukast 10 mg tablet 10 mg PO DAILY #30 tabs 01/09/21 10/31/23 10/31/23 Rx (Singulair) Bone Growth Stimulator E0748 #1 ea 05/05/22 10/31/23 Unknown Rx spironolactone 25 mg tablet 12.5 mg (1/2 x 25 mg) PO DAILY 30 05/07/22 10/31/23 10/31/23 Rx days #30 tabs potassium chloride 20 mEq 20 meq PO DAILY PRN lasix 06/11/22 10/31/23 2 Weeks Ago History tablet,extended ~08/18/23 release(part/cryst) (Klor-Con M) furosemide 40 mg tablet 20 mg PO DAILY PRN Edema 08/21/23 10/31/23 2 Weeks Ago History ~08/18/23 losartan 50 mg tablet 50 mg PO DAILY 08/21/23 10/31/23 10/31/23 History pantoprazole 40 mg tablet,delayed 40 mg PO BID 09/01/23 10/31/23 10/31/23 History release oxycodone 5 mg tablet 5 mg PO Q4H PRN pain 7 days #40 09/16/23 10/31/23 Unknown Rx tabs acetaminophen 500 mg tablet 1,000 mg PO Q6H PRN Pain 10/31/23 10/31/23 Unknown History albuterol sulfate 90 mcg/actuation 1 inh inhalation QID PRN Shortness 10/31/23 10/31/23 Unknown History aerosol inhaler (ProAir HFA) Of Breath budesonide-formoterol HFA 160 1 inh inhalation BID 10/31/23 10/31/23 10/31/23 History mcg-4.5 mcg/actuation aerosol inhaler (Symbicort) carvedilol 12.5 mg tablet 12.5 mg PO DAILY 10/31/23 10/31/23 10/31/23 History empagliflozin 25 mg tablet 25 mg PO DAILY 10/31/23 10/31/23 10/31/23 History (Jardiance) ibuprofen 200 mg tablet 400 mg PO Q6H PRN Pain 10/31/23 10/31/23 Unknown History ropinirole 1 mg tablet 1 mg PO DAILY 10/31/23 10/31/23 10/31/23 History simvastatin 20 mg tablet 20 mg PO DAILY 10/31/23 10/31/23 10/30/23 History Allergies Allergy/AdvReac Type Severity Reaction Status Date / Time apixaban [From Eliquis] Allergy Severe bleeding Verified 10/13/23 10:45 ibuprofen [From Motrin] Allergy renal Verified 10/13/23 10:45 failure rivaroxaban [From Xarelto] Allergy bleeding Verified 10/13/23 10:45 tolmetin [From Tolectin] Allergy ALGY-Rash Verified 10/13/23 10:45 NSAIDS (Non-Steroidal AdvReac RENAL Verified 10/13/23 10:45 Anti-Inflamma COMPICATIONS PFSH Acute 2 PFSH: Medical History Diverticulosis large intestine w/o perforation or abscess w/bleeding History of colon polyps Dupuytren's disease of palm of left hand Trigger finger, right middle finger Trigger finger, left ring finger Osteoarthritis of hands, bilateral Congestive heart failure Systolic and diastolic. EF of 34% on echocardiogram from 12/2020. EF of 60% on echocardiogram from 12/2021. H/O diabetic nephropathy History of left heart catheterization (LHC) 12/2020 60 to 70% diffuse disease in the first diagonal branch of the left anterior descending artery. He had around 40 to 50% lesions in the distal left and descending artery. Minimal intimal irregularities in the RCA and the left circumflex artery. Based on angiographic findings, he was treated medically. Asthma Atherosclerotic heart disease of [place] coronary artery without angina pectoris Abnormal cardiovascular stress test Diabetes mellitus Primary osteoarthritis of knees, bilateral SHER (obstructive sleep apnea) COVID-19 Right fibular fracture Spontaneous hemorrhage This patient bled into the right calf muscle and had hematuria with Xarelto Shortness of breath on exertion Dyslipidemia Cerebral arterial aneurysm Intermittent atrial fibrillation Atrial fibrillation status post cardioversion Narcolepsy Peripheral arterial disease Hypertension Benign prostatic hyperplasia Hypothyroidism Surgical History History of colonoscopy 5 years ago History of esophagogastroduodenoscopy 30 years ago History of umbilical hernia repair (~12/2021) S/P spinal fusion H/O cardiac radiofrequency ablation x 2 Pacemaker Presence of Watchman left atrial appendage closure device History of cataract surgery Bilateral History of knee surgery Bilateral arthroscopy (multiple on each side) S/P rotator cuff repair Left Family History Other CAD (coronary artery disease) Cancer Hypertension Stroke Social History Smoking and tobacco/nicotine status: never used tobacco/nicotine Second hand smoke exposure: Yes Alcohol intake: never Substance/Drug Use: never Lives independently: Yes Household members: spouse and children Housing: House Marital status: service: Yes 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 Do you think of yourself as: Straight/Heterosexual Current gender identity: Male Vitals/I&O/Wt Last Vital Signs Temp 97.9 F 10/31/23 14:34 Pulse 74 10/31/23 19:06 Resp 15 10/31/23 19:06 BP 130/72 10/31/23 17:05 Pulse Ox 98 10/31/23 19:06 O2 Del Method Room Air 10/31/23 19:06 Weight last 48 hrs Weight 127.006 kg Physical Exam 2 Const: COMMON NORMALS: no acute distress and patient oriented x3 HENMT: COMMON NORMALS: normocephalic HEAD & SCALP: normocephalic Eye: COMMON NORMALS: Equal, round and reactive pupils present and EOMs intact bilaterally Neck/C-Spine: COMMON NORMALS: no JVD Resp: COMMON NORMALS: normal respiratory effort, No retractions and No use of accessory muscles AUSCULTATION: wheezes Cardio: COMMON NORMALS: no JVD, regular rate, regular rhythm, S1 normal heart sound present and S2 normal heart sound present RATE: regular rate RHYTHM: regular rhythm HEART SOUNDS: S1 normal heart sound present and S2 normal heart sound present GI: COMMON NORMALS: Normal to inspection, nondistended, normoactive bowel sounds present, Soft to palpation and non-tender Extremity: COMMON NORMALS: no calf tenderness and no pedal edema Neuro: COMMON NORMALS: patient oriented x3, CN's II-XII intact bilaterally and moves all extremities Psych: COMMON NORMALS: mental status grossly normal Data 10/31/23 15:42 10/31/23 15:42 A&P Assessment and plan (1) Bronchopneumonia: (2) Narcolepsy: (3) Anemia: (4) Diabetes mellitus: Qualifiers: Diabetes mellitus type: type 2 Diabetes mellitus custodial insulin use: without intermediate card tender use Diabetes mellitus complication status: with hyperglycemia Qualified Code(s): E11.65 - Type 2 diabetes mellitus with hyperglycemia (5) Hypothyroidism: Qualifiers: Hypothyroidism type: acquired Qualified Code(s): E03.9 - Hypothyroidism, unspecified (6) Pacemaker: (7) Congestive heart failure: Qualifiers: Heart failure type: diastolic Heart failure chronicity: chronic Qualified Code(s): I50.32 - Chronic diastolic (congestive) heart failure (8) Hypertension: Qualifiers: Hypertension type: primary hypertension Qualified Code(s): I10 - Essential (primary) hypertension Plan Bronchopneumonia -Failure of outpatient antibiotics Plan -Continue Rocephin, doxycycline -Respiratory viral panel, sputum culture -DuoNeb, budesonide -Monitor respiratory status closely -Continue home BiPAP -Type II days mellitus, low-dose sliding scale -Narcolepsy continue modafinil -Hypothyroidism continue home levothyroxine -Full code -Lovenox for DVT prophylaxis Attestations 2 Medical Necessity Statement*: Patient requires hospitalization, outpatient with observation, for bronchopneumonia Diagnoses Bronchopneumonia J18.0 Narcolepsy G47.419 Anemia D64.9 Type 2 diabetes mellitus with hyperglycemia, without long-term current use of insulin E11.65 Diabetes mellitus type: type 2 Diabetes mellitus custodial insulin use: without intermediate card tender use Diabetes mellitus complication status: with hyperglycemia Acquired hypothyroidism E03.9 Hypothyroidism type: acquired Pacemaker Z95.0 Chronic diastolic congestive heart failure I50.32 Heart failure type: diastolic Heart failure chronicity: chronic Primary hypertension I10 Hypertension type: primary hypertension
[2023-10-31 20:44] LABS: Thyroid Stimulating Hormone 3.33 uIU/mL (0.27-4.20)
--- NOTE | 2023-10-31 21:24 | ECG_ITS ---
[facility] Test Date: 2023-10-31 Pat Name: Lupillo Silveira Department: Room: 251 Gender: Male Research Fellow: : 1945 Requested By: Dada Richter Order Number: [id number] Hugo MD: Jaylyn Chase M.D. Measurements Intervals [place] Rate: 75 P: 0 MD: 0 QRS: -73 QRSD: 185 T: 81 QT: 444 QTc: 496 Interpretive Statements ELECTRONIC VENTRICULAR PACEMAKER ABNORMAL RHYTHM ECG Compared to ECG 10/31/2023 17:19:09 No significant changes Electronically Signed On 10-31-2023 22:02:52 IMPORT SPECIALIST by Jaylyn Chase M.D. [id number]
[2023-10-31 22:15] LABS: Troponin 5 6HR 11.23 ng/L (0-15)
[2023-10-31 22:19] LABS: Troponin 5 6HR Delta -4.77 ng/L (0-12)
[2023-10-31] MEDS: doxycycline 100 MG in sodium chloride 0.9% (plus) 100 ML IV (22:38)
[2023-10-31] MEDS: enoxaparin 40 mg/0.4 mL Syringe SUBCUT (22:39)
[2023-10-31 22:50] LABS: Estmated Average Glucose 111; Hemoglobin A1C 5.5 % (4.0-6.0)
[2023-10-31 23:05] LABS: Glucose Point of Care 133 mg/dL (70-110)
[2023-11-01] VITALS (13 sets, daily range): BP systolic 103–122; BP diastolic 68–82; PULSE 72–78; RESP 16–20; TEMP 36.4–36.9; O2SAT 92–95; BMI 42.3
[2023-11-01] MEDS: levothyroxine 137 mcg Tablet PO (04:35)
[2023-11-01 05:28] LABS: Basophils # 0.1 10^3/uL (0.0-0.1); Eosinophils # 0.3 10^3/uL (0.0-0.8); Eosinophils % 6.6 %; Hematocrit 32.2 % (37-53); Lymphocytes # 1.2 10^3/uL (0.8-4.8); Lymphocytes % 23.5 %; Mean Corpuscular HGB Conc 27.3 g/dL (30-55); Mean Corpuscular Hemoglobin 22.3 pg (27-33); Mean Corpuscular Volume 81.5 fl (82-101); Mean Platelet Volume 9.6 fL (7.4-10.4); Monocytes # 0.4 10^3/uL (0.2-0.9); Monocytes % 7.8 %; Neutrophils # 3.01 10^3/uL (1.8-7.7); Neutrophils % 60.7 %; Nucleated Red Blood Cells % 0 %; Platelet Count 206 10^3/cmm (157-399); Red Blood Count 3.95 10^6/uL (3.85-5.65); Red Cell Distribution Width 16.6 % (12.1-15.1); White Blood Count 4.97 10^3/uL (3.29-11.43)
[2023-11-01 05:50] LABS: Alanine Aminotransferase 7 U/L (0-41); Albumin Level 3.4 g/dL (3.5-5.2); Alkaline Phosphatase 109 U/L (40-130); Anion Gap 13.9 (5-19); Aspartate Amino Transferase 11 U/L (0-40); Blood Urea Nitrogen 10 mg/dL (8-23); Calcium 8.3 mg/dL (8.5-10.5); Carbon Dioxide 22 mmol/L (22-29); Chloride 106 mmol/L (98-107); Globulin 3.1 g/dL (1.3-4.6); Glucose 104 mg/dL (65-115); Magnesium 1.8 mg/dL (1.7-2.3); Osmolality Calculated 285 mOsm/kg (285-295); Phosphorus 3.6 mg/dL (2.5-4.5); Potassium 3.9 mmol/L (3.5-5.1); Sodium 138 mmol/L (136-145); Total Bilirubin 0.2 mg/dL (0.15-1.2); Total Protein 6.5 g/dL (6.6-8.7)
[2023-11-01 07:44] LABS: Glucose Point of Care 177 mg/dL (70-110)
[2023-11-01] MEDS: ipratropium-albuterol 3 mL Neb INHALATION ×4 (08:47→19:56)
[2023-11-01] MEDS: budesonide 0.5 mg/2 mL Neb 0.25 MG INHALATION ×2 (08:47→19:56)
[2023-11-01] MEDS: spironolactone 25 mg Tablet 12.5 MG PO (09:14)
[2023-11-01] MEDS: tamsulosin 0.4 mg Capsule PO (09:14)
[2023-11-01] MEDS: cetirizine 10 mg Tablet PO (09:15)
[2023-11-01] MEDS: pantoprazole DR 40 mg Tablet PO ×2 (09:15→18:20)
[2023-11-01] MEDS: carvedilol 12.5 mg Tablet PO (09:15)
[2023-11-01] MEDS: aspirin 81 mg EC Tablet PO (09:15)
[2023-11-01] MEDS: montelukast sodium 10 mg Tablet PO (09:15)
[2023-11-01] MEDS: atorvastatin 40 mg Tablet 20 MG PO (09:15)
[2023-11-01] MEDS: losartan 50 mg Tablet PO (09:15)
[2023-11-01] MEDS: ropinirole 1 mg Tablet PO (09:15)
[2023-11-01 11:12] LABS: Glucose Point of Care 104 mg/dL (70-110)
[2023-11-01] MEDS: doxycycline 100 MG in sodium chloride 0.9% (plus) 100 ML IV ×2 (12:10→23:16)
[2023-11-01] MEDS: predniSONE 20 mg Tablet 40 MG PO (12:10)
[2023-11-01 12:51] LABS: D Dimer 2.08 ug/mLFEU (0-0.59)
[2023-11-01] MEDS: FUROsemide 10 mg/mL SDV 4mL 40 MG IVP (12:52)
--- NOTE | 2023-11-01 13:11 | CTR_ITS ---
PROCEDURE INFORMATION: Exam: CTA Chest With Contrast Exam date and time: 11/01/2023 5:48 PM Age: 77 years old Clinical indication: Abnormal findings; Abnormal diagnostic tests; Elevated d-dimer; Shortness of breath; Prior surgery; Surgery date: 6+ months; Surgery type: Pacer. Watchman. Cardiac ablation. Spinal fusion; Patient HX: SOB with dimer of 2.08; Additional info: Elevated dimer, SOB TECHNIQUE: Imaging protocol: Computed tomographic angiography of the chest with contrast. Exam focused on the arteries. 3D rendering (Not supervised by radiologist): MIP and/or 3D reconstructed images were created by the technologist. Radiation optimization: All CT scans at this facility use at least one of these dose optimization techniques: automated exposure control; mA and/or kV adjustment per patient size (includes targeted exams where dose is matched to clinical indication); or iterative reconstruction. Contrast material: OMNI 350; Contrast volume: 100 ml; Contrast route: INTRAVENOUS (IV); COMPARISON: CT angio chest PE protcl [id number] 12/12/2020 3:04 PM RADIATION DOSE METRICS: Total DLP (mGy-cm): 599.78 FINDINGS: Tubes, catheters and devices: Left atrial occlusion device in place.Coronary arterial atherosclerotic calcifications are present. Pulmonary arteries: No pulmonary embolus. Aorta: Unremarkable. No aortic aneurysm. No aortic dissection. Lungs: Atelectasis versus scarring in the lung bases. No focal consolidation. Pleural spaces: Unremarkable. No pneumothorax. No pleural effusion. Heart: Unremarkable. No cardiomegaly. No pericardial effusion. Lymph nodes: Unremarkable. No enlarged lymph nodes. Bones/joints: Partially visualized posterior fusion device in the lower thoracic spine. Soft tissues: Unremarkable. CT/CT angio chest PE protcl [id number] IMPRESSION: 1. No pulmonary embolus. 2. Atelectasis versus scarring in the lung bases. No focal consolidation.
--- NOTE | 2023-11-01 14:59 | P.PN_ITS ---
Subjective 2 Subjective: Admitted overnight. H&P and labs appreciated. On examination remains on room air but complaining of shortness of breath on minimal exertion along with cough. Denies any nausea, vomiting, headache. Complaining of back pain. Vitals/I&O/Wt Last Vital Signs Temp 97.8 F 11/01/23 12:00 Pulse 73 11/01/23 12:00 Resp 20 H 11/01/23 12:00 BP 103/70 11/01/23 12:00 Pulse Ox 95 11/01/23 12:00 O2 Del Method Room Air 11/01/23 12:00 10/31/23 11/01/23 11/01/23 22:59 06:59 14:59 Intake Total 50 / 50 100 / 150 820 / 820 Output Total 200 / 200 600 / 600 Balance 50 / 50 -100 / -50 220 / 220 Weight last 48 hrs Weight 126.189 kg Weight 127.006 kg Weight 127.006 kg Physical Exam 2 Const: COMMON NORMALS: no acute distress and patient oriented x3 HENMT: COMMON NORMALS: normocephalic HEAD & SCALP: normocephalic Eye: COMMON NORMALS: Equal, round and reactive pupils present and EOMs intact bilaterally PUPIL: Yes Equal, round and reactive pupils present Neck/C-Spine: COMMON NORMALS: no JVD Resp: COMMON NORMALS: normal respiratory effort, No retractions and No use of accessory muscles AUSCULTATION: wheezes Cardio: COMMON NORMALS: no JVD, regular rate, regular rhythm, S1 normal heart sound present and S2 normal heart sound present RATE: regular rate RHYTHM: regular rhythm HEART SOUNDS: S1 normal heart sound present and S2 normal heart sound present GI: COMMON NORMALS: Normal to inspection, nondistended, normoactive bowel sounds present, Soft to palpation and non-tender PALPATION: Yes Soft to palpation Extremity: COMMON NORMALS: no calf tenderness and no pedal edema Neuro: COMMON NORMALS: patient oriented x3, CN's II-XII intact bilaterally and moves all extremities Psych: COMMON NORMALS: mental status grossly normal Data 11/01/23 05:06 11/01/23 05:06 A&P Assessment and plan (1) Bronchopneumonia: (2) Narcolepsy: (3) Anemia: (4) Diabetes mellitus: Qualifiers: Diabetes mellitus type: type 2 Diabetes mellitus custodial insulin use: without technician terminal and repeater use Diabetes mellitus complication status: with hyperglycemia Qualified Code(s): E11.65 - Type 2 diabetes mellitus with hyperglycemia (5) Hypothyroidism: Qualifiers: Hypothyroidism type: acquired Qualified Code(s): E03.9 - Hypothyroidism, unspecified (6) Pacemaker: (7) Congestive heart failure: Qualifiers: Heart failure type: diastolic Heart failure chronicity: chronic Qualified Code(s): I50.32 - Chronic diastolic (congestive) heart failure (8) Hypertension: Qualifiers: Hypertension type: primary hypertension Qualified Code(s): I10 - Essential (primary) hypertension (9) Shortness of breath: (10) Chronic respiratory failure with hypoxia: (11) Asthma: Plan Shortness of breath in setting of bronchopneumonia leading to asthma exacerbation along with mild congestive heart failure. -Failure of outpatient antibiotics Plan Follow-up sputum culture, check respiratory viral panel. Check D-dimer. If D- dimer is elevated we will plan for CTA otherwise CT chest. -Continue antibiotics for community-acquired pneumonia Rocephin, doxycycline Nebulization treatment with DuoNeb, budesonide Oxygen supplementation keeping saturation over 90%. -Continue home BiPAP. Start on prednisone 40 mg oral daily for around 5 to 7 days. Does have history of congestive heart failure. Start on IV Lasix 40 mg oral one-time. Strict input charting, daily weights. Will dose Lasix daily as per fluid status. -Type II days mellitus, low-dose sliding scale -Narcolepsy continue modafinil -Hypothyroidism continue home levothyroxine -Full code -Lovenox for DVT prophylaxis Attestations 2 Medical Necessity Statement*: Requires further hospitalization for management shortness of breath in setting of bronchopneumonia, asthma exacerbation in a patient with history of congestive heart failure Diagnoses Bronchopneumonia J18.0 Narcolepsy G47.419 Anemia D64.9 Type 2 diabetes mellitus with hyperglycemia, without long-term current use of insulin E11.65 Diabetes mellitus type: type 2 Diabetes mellitus technician terminal and repeater insulin use: without technician terminal and repeater use Diabetes mellitus complication status: with hyperglycemia Acquired hypothyroidism E03.9 Hypothyroidism type: acquired Pacemaker Z95.0 Chronic diastolic congestive heart failure I50.32 Heart failure type: diastolic Heart failure chronicity: chronic Primary hypertension I10 Hypertension type: primary hypertension Shortness of breath R06.02 Chronic respiratory failure with hypoxia J96.11 Asthma J45.909
[2023-11-01 16:02] LABS: Adenovirus Not Detected (NOT DETECT); Chlamydia Pneumoniae Not Detected (NOT DETECT); Coronavirus 229E,HKU1,NL63,OC4 Not Detected (NOT DETECT); Human Metapneumovirus Not Detected (NOT DETECT); Human Rhinovirus/Enterovirus Not Detected (NOT DETECT); Influenza A Not Detected (NOT DETECT); Influenza A H1 Not Detected (NOT DETECT); Influenza A H1-2009 Not Detected (NOT DETECT); Influenza A H3 Not Detected (NOT DETECT); Influenza B Not Detected (NOT DETECT); Mycoplasma Pneumoniae Not Detected (NOT DETECT); Parainfluenza Virus Type 1 Not Detected (NOT DETECT); Parainfluenza Virus Type 2 Not Detected (NOT DETECT); Parainfluenza Virus Type 3 Not Detected (NOT DETECT); Parainfluenza Virus Type 4 Not Detected (NOT DETECT); Respiratory Syncytial Virus A Not Detected (NOT DETECT); SARS-COV-2 Not Detected (NOT DETECT)
[2023-11-01 16:08] LABS: Respiratory Syncytial Virus B Detected (NOT DETECT)
[2023-11-01 16:36] LABS: Glucose Point of Care 189 mg/dL (70-110)
[2023-11-01] MEDS: iohexol 350 mg/mL 500 mL Btl (per mL) IV (17:53)
[2023-11-01] MEDS: cholecalciferol (vitamin D3) 1,000 unit Tablet 2000 UNIT PO (18:20)
[2023-11-01] MEDS: cefTRIAXone 1,000 MG in sodium chloride 0.9% (plus) 50 ML 100 MG IV (18:21)
[2023-11-01 22:04] LABS: Glucose Point of Care 344 mg/dL (70-110)
[2023-11-01] MEDS: insulin lispro 100 unit/1 mL SUBCUT (23:15)
[2023-11-01] MEDS: enoxaparin 40 mg/0.4 mL Syringe SUBCUT (23:15)
[2023-11-02] VITALS (7 sets, daily range): BP systolic 108–141; BP diastolic 70–94; PULSE 75–103; RESP 18; TEMP 36.4–36.9; O2SAT 92–95; BMI 43.9
[2023-11-02] MEDS: levothyroxine 137 mcg Tablet PO (04:19)
[2023-11-02 04:49] LABS: Basophils % 0.5 %; Eosinophils # 0.1 10^3/uL (0.0-0.8); Eosinophils % 1.1 %; Hematocrit 30.8 % (37-53); Lymphocytes # 1.2 10^3/uL (0.8-4.8); Lymphocytes % 19.3 %; Mean Corpuscular HGB Conc 28.9 g/dL (30-55); Mean Corpuscular Hemoglobin 22.4 pg (27-33); Mean Corpuscular Volume 77.6 fl (82-101); Mean Platelet Volume 9.6 fL (7.4-10.4); Monocytes # 0.4 10^3/uL (0.2-0.9); Neutrophils # 4.49 10^3/uL (1.8-7.7); Neutrophils % 71.8 %; Nucleated Red Blood Cells % 0 %; Platelet Count 239 10^3/cmm (157-399); Red Blood Count 3.97 10^6/uL (3.85-5.65); Red Cell Distribution Width 16.8 % (12.1-15.1); White Blood Count 6.26 10^3/uL (3.29-11.43)
[2023-11-02 05:12] LABS: Alanine Aminotransferase 9 U/L (0-41); Albumin Level 3.5 g/dL (3.5-5.2); Alkaline Phosphatase 113 U/L (40-130); Anion Gap 14.6 (5-19); Aspartate Amino Transferase 13 U/L (0-40); Blood Urea Nitrogen 12 mg/dL (8-23); Calcium 8.6 mg/dL (8.5-10.5); Carbon Dioxide 22 mmol/L (22-29); Chloride 103 mmol/L (98-107); Globulin 3.2 g/dL (1.3-4.6); Glucose 97 mg/dL (65-115); Osmolality Calculated 282 mOsm/kg (285-295); Potassium 3.6 mmol/L (3.5-5.1); Sodium 136 mmol/L (136-145); Total Bilirubin 0.2 mg/dL (0.15-1.2); Total Protein 6.7 g/dL (6.6-8.7)
[2023-11-02 07:42] LABS: Glucose Point of Care 146 mg/dL (70-110)
[2023-11-02] MEDS: ipratropium-albuterol 3 mL Neb INHALATION (07:58)
[2023-11-02] MEDS: budesonide 0.5 mg/2 mL Neb 0.25 MG INHALATION (07:58)
[2023-11-02] MEDS: predniSONE 20 mg Tablet 40 MG PO (08:30)
[2023-11-02] MEDS: montelukast sodium 10 mg Tablet PO (08:31)
[2023-11-02] MEDS: atorvastatin 40 mg Tablet 20 MG PO (08:31)
[2023-11-02] MEDS: tamsulosin 0.4 mg Capsule PO (08:31)
[2023-11-02] MEDS: pantoprazole DR 40 mg Tablet PO (08:31)
[2023-11-02] MEDS: ropinirole 1 mg Tablet PO (08:31)
[2023-11-02] MEDS: spironolactone 25 mg Tablet 12.5 MG PO (08:31)
[2023-11-02] MEDS: insulin lispro 100 unit/1 mL SUBCUT (08:32)
[2023-11-02] MEDS: aspirin 81 mg EC Tablet PO (08:32)
[2023-11-02 11:21] LABS: Glucose Point of Care 134 mg/dL (70-110)
--- NOTE | 2023-11-02 11:55 | PC.NURSE ---
Patient refused home oxygen evaluation. Patient states that he has oxygen at home if he needs it as he uses it with his bi-pap. Patient states, I check my oxygen often and I know what I am doing.
[2023-11-02] MEDS: doxycycline 100 MG in sodium chloride 0.9% (plus) 100 ML IV (12:15)
--- NOTE | 2023-11-02 13:02 | PM.DCS ---
Discharge Providers Date of Admission: 10/31/23 18:09 Date of Discharge: November 02, 2023 Attending Provider at Admission: Marisol Barker MD Attending Provider at Discharge: Kimani Stockton Primary Care Provider: Emil Oliveira DO Diagnoses at Discharge Discharge Diagnosis (1) Bronchopneumonia: Status: Acute (2) Narcolepsy: Status: Chronic (3) Anemia: Status: Acute (4) Diabetes mellitus: Status: Chronic Qualifiers: Diabetes mellitus complication status: with hyperglycemia Diabetes mellitus [facility] insulin use: without exterminator use Diabetes mellitus type: type 2 Qualified Code(s): E11.65 - Type 2 diabetes mellitus with hyperglycemia (5) Hypothyroidism: Status: Chronic Qualifiers: Hypothyroidism type: acquired Qualified Code(s): E03.9 - Hypothyroidism, unspecified (6) Pacemaker: Status: Chronic (7) Congestive heart failure: Status: Chronic Qualifiers: Heart failure chronicity: chronic Heart failure type: diastolic Qualified Code(s): I50.32 - Chronic diastolic (congestive) heart failure Permanent problem details: Systolic and diastolic. EF of 34% on echocardiogram from 12/2020. EF of 60% on echocardiogram from 12/2021. (8) Hypertension: Status: Chronic Qualifiers: Hypertension type: primary hypertension Qualified Code(s): I10 - Essential (primary) hypertension (9) Shortness of breath: Status: Acute (10) Chronic respiratory failure with hypoxia: Status: Chronic (11) Asthma: Status: Chronic Reason for Visit Reason for Visit: sob, cough Hospital Course Hospital Course Pleasant 77-year-old gentleman with history of asthma, CHF, BiPAP, nocturnal hypoxia, SHER, DM2, narcolepsy on modafinil, HLD, other medical problems was hospitalized for assessment management of worsening shortness of breath despite outpatient treatment for pneumonia. Respiratory viral panel returned positive for RSV likely responsible for his symptoms. D-dimer with some elevation, CTA was obtained, but no PE noted. He is otherwise doing better. He is on room air. Did receive a dose of diuretic for possible minimal component of CHF. He otherwise feels ready to return home. Does have mild wheeze. For now Symbicort dose is increased to 2 inhalations twice daily, continue albuterol, has a nebulizer at home. Will complete brief course of antibiotic for the pneumonia with cefdinir, doxycycline, short course of oral prednisone additional 3 days. Please reassess for recovery. He is asked to follow-up with pulmonology. Physical Exam Const: COMMON NORMALS: patient oriented x3 and alert GENERAL APPEARANCE: cooperative ORIENTATION/CONSCIOUSNESS: Yes awake HENMT: COMMON NORMALS: oropharynx normal Neck/C-Spine: COMMON NORMALS: no JVD Resp: COMMON NORMALS: normal respiratory effort OTHER: Mild wheeze. Cardio: COMMON NORMALS: no JVD, regular rhythm, S1 normal heart sound present, S2 normal heart sound present and No murmurs present (Cardio) RHYTHM: regular rhythm HEART SOUNDS: S1 normal heart sound present and S2 normal heart sound present GI: COMMON NORMALS: Normal to inspection, nondistended, normoactive bowel sounds present, Soft to palpation and non-tender PALPATION: Yes Soft to palpation Extremity: COMMON NORMALS: no joint enlargement and no pedal edema Neuro: COMMON NORMALS: patient oriented x3 and moves all extremities SENSORIUM/ORIENTATION: Yes alert Skin: COMMON NORMALS: no rashes or lesions noted GENERAL SKIN EXAM: no rashes or lesions noted Discharge Data Studies Completed and Pending Completed Studies During Hospitalization Category Date Time Status CTA chest [CT angio chest PE protcl [id number]] Routine Cat Scan 11/01/23 13:11 Completed XR chest 1V portable [id number] Stat Exams 10/31/23 15:23 Completed Pending at discharge Category Date Time Status Blood Cultures ([facility]) Routine Lab 10/31/23 16:55 Received Blood Cultures ([facility]) Routine Lab 10/31/23 17:12 Received Sputum Culture and Gram Stain Stat Lab 11/01/23 09:00 Results Radiology Impressions Chest X-Ray 10/31/23 15:23 IMPRESSION: 1. Mild bronchial wall thickening and hazy opacities in the mid right lung raising the question of developing bronchopneumonia. Chest CTA 11/01/23 13:11 IMPRESSION: 1. No pulmonary embolus. 2. Atelectasis versus scarring in the lung bases. No focal consolidation. Laboratory Results WBC 6.26 10^3/uL (3.29-11.43) 11/02/23 04:04 RBC 3.97 10^6/uL (3.85-5.65) 11/02/23 04:04 Hgb 8.90 g/dL (11.27-16.99) L 11/02/23 04:04 Hct 30.8 % (37-53) L 11/02/23 04:04 MCV 77.6 fl (82-101) L 11/02/23 04:04 MCH 22.4 pg (27-33) L 11/02/23 04:04 MCHC 28.9 g/dL (30-55) L D 11/02/23 04:04 RDW 16.8 % (12.1-15.1) H 11/02/23 04:04 Plt Count 239 10^3/cmm (157-399) 11/02/23 04:04 MPV 9.6 fL (7.4-10.4) 11/02/23 04:04 Neut % (Auto) 71.8 % 11/02/23 04:04 Lymph % (Auto) 19.3 % 11/02/23 04:04 Maries % (Auto) 7.0 % 11/02/23 04:04 Eos % (Auto) 1.1 % 11/02/23 04:04 Baso % (Auto) 0.5 % 11/02/23 04:04 Neut # (Auto) 4.49 10^3/uL (1.8-7.7) 11/02/23 04:04 Lymph # (Auto) 1.2 10^3/uL (0.8-4.8) 11/02/23 04:04 Maries # (Auto) 0.4 10^3/uL (0.2-0.9) 11/02/23 04:04 Eos # (Auto) 0.1 10^3/uL (0.0-0.8) 11/02/23 04:04 Baso # (Auto) 0.0 10^3/uL (0.0-0.1) 11/02/23 04:04 Nucleated RBC % (auto) 0 % 11/02/23 04:04 Nucleated RBCs # 0.0 /100WBC 11/02/23 04:04 PT 15.20 SECONDS (12.1-14.9) H 10/31/23 15:42 INR 1.16 (0.8-1.2) 10/31/23 15:42 D-Dimer 2.08 ug/mLFEU (0-0.59) H 11/01/23 12:21 Sodium 136 mmol/L (136-145) 11/02/23 04:04 Potassium 3.6 mmol/L (3.5-5.1) 11/02/23 04:04 Chloride 103 mmol/L (98-107) 11/02/23 04:04 Carbon Dioxide 22 mmol/L (22-29) 11/02/23 04:04 Anion Gap 14.6 (5-19) 11/02/23 04:04 BUN 12 mg/dL (8-23) 11/02/23 04:04 Creatinine 0.9 mg/dL (0.7-1.2) 11/02/23 04:04 GFR Calculation Not Reportable 11/02/23 04:04 Glucose 97 mg/dL (65-115) 11/02/23 04:04 POC Glucose 134 mg/dL (70-110) H 11/02/23 11:05 Estimat Average Glucose 111 10/31/23 15:42 Hemoglobin A1c 5.5 % (4.0-6.0) 10/31/23 15:42 Calculated Osmolality 282 mOsm/kg (285-295) L 11/02/23 04:04 Lactic Acid 1.3 mmol/L (0.5-2.2) 10/31/23 15:42 Calcium 8.6 mg/dL (8.5-10.5) 11/02/23 04:04 Phosphorus 3.6 mg/dL (2.5-4.5) 11/01/23 05:06 Magnesium 1.8 mg/dL (1.7-2.3) 11/01/23 05:06 Total Bilirubin 0.2 mg/dL (0.15-1.2) 11/02/23 04:04 AST 13 U/L (0-40) 11/02/23 04:04 ALT 9 U/L (0-41) 11/02/23 04:04 Alkaline Phosphatase 113 U/L (40-130) 11/02/23 04:04 Troponin T Baseline 16 ng/L (0-15) H 10/31/23 15:42 Troponin T 120 Minute 11.77 ng/L (0-15) 10/31/23 17:42 Delta Troponin T -4.23 ABS# (0-10) L 10/31/23 17:42 Troponin T Hi Sens 6Hr 11.23 ng/L (0-15) 10/31/23 21:48 Troponin T Hi Sens 6Hr Delta -4.77 ng/L (0-12) L 10/31/23 21:48 C-Reactive Protein 52.0 mg/L (0.0-4.9) H 10/31/23 15:42 NT-Pro-B Natriuret Pep 2330 pg/mL (0-450) H 10/31/23 15:42 Total Protein 6.7 g/dL (6.6-8.7) 11/02/23 04:04 Albumin 3.5 g/dL (3.5-5.2) 11/02/23 04:04 Globulin 3.2 g/dL (1.3-4.6) 11/02/23 04:04 Procalcitonin 0.06 ng/mL (0-0.5) 10/31/23 15:42 TSH 3.33 uIU/mL (0.27-4.20) 10/31/23 15:42 Adenovirus (PCR) Not detected (NOT DETECT) 11/01/23 12:16 C. pneumoniae DNA (PCR) Not detected (NOT DETECT) 11/01/23 12:16 Coronavirus 229E (PCR) Not detected (NOT DETECT) 11/01/23 12:16 Human Metapneumovir PCR Not detected (NOT DETECT) 11/01/23 12:16 Influenza A (H1) PCR Not detected (NOT DETECT) 11/01/23 12:16 Influ A (H1/09) PCR Not detected (NOT DETECT) 11/01/23 12:16 Influenza A (H3) PCR Not detected (NOT DETECT) 11/01/23 12:16 Influenza Type A Ag negative (Negative) 10/31/23 16:30 Influenza Type A (PCR) Not detected (NOT DETECT) 11/01/23 12:16 Influenza Type B Ag negative (Negative) 10/31/23 16:30 Influenza Type B (PCR) Not detected (NOT DETECT) 11/01/23 12:16 M. pneumoniae (PCR) Not detected (NOT DETECT) 11/01/23 12:16 Parainfluenza 1 (PCR) Not detected (NOT DETECT) 11/01/23 12:16 Parainfluenza 2 (PCR) Not detected (NOT DETECT) 11/01/23 12:16 Parainfluenza 3 (PCR) Not detected (NOT DETECT) 11/01/23 12:16 Parainfluenza 4 (PCR) Not detected (NOT DETECT) 11/01/23 12:16 RSV Type A (PCR) Not detected (NOT DETECT) 11/01/23 12:16 RSV Type B (PCR) Detected (NOT DETECT) A 11/01/23 12:16 Entero/Rhino (PCR) Not detected (NOT DETECT) 11/01/23 12:16 SARS-CoV-2 (PCR) Not detected (NOT DETECT) 11/01/23 12:16 SARS-CoV-2 Ag (Rapid) negative (Negative) 10/31/23 16:30 Vitals Last Vital Signs Temp 98.1 F 11/02/23 12:37 Pulse 75 11/02/23 12:37 Resp 18 11/02/23 12:37 BP 108/71 11/02/23 12:37 Pulse Ox 95 11/02/23 12:37 O2 Del Method Room Air 11/02/23 12:37 Discharge Plan Discharge Patient Disposition: Home Condition: Stable Prescriptions: New cefdinir 300 mg capsule 300 mg PO BID Qty: 6 0RF doxycycline hyclate 100 mg capsule 100 mg PO BID 3 Days Qty: 6 0RF prednisone 20 mg Tablet 40 mg PO DAILY Qty: 3 0RF Continued cetirizine [Zyrtec] 10 mg tablet 10 mg PO DAILY PRN (Reason: allergy symptoms) Qty: 20 0RF montelukast [Singulair] 10 mg tablet 10 mg PO DAILY Qty: 30 3RF albuterol sulfate 2.5 mg /3 mL (0.083 %) solution for nebulization 2.5 mg continuous nebulization QID PRN (Reason: shortness of breath or wheezing) aspirin [Adult Aspirin Regimen] 81 mg tablet,delayed release (DR/EC) 81 mg PO DAILY Hold Instructions: Resume on 06/17/22. losartan 50 mg tablet 50 mg PO DAILY Hold Instructions: Resume on 09/12/23. furosemide 40 mg tablet 20 mg PO DAILY PRN (Reason: Edema) oxycodone 5 mg tablet 5 mg PO Q4H PRN (Reason: pain) 7 Days Qty: 40 0RF (DME) Bone Growth Stimulator E0748 See Rx Instructions .Route .MEDSUPPLY Qty: 1 0RF Rx Instructions: As directed levothyroxine [Synthroid] 137 mcg Tablet 137 mcg PO DAILY@04 modafinil [Provigil] 200 mg Tablet 200 mg PO DAILY@06 cholecalciferol (vitamin D3) [Vitamin D3] 50 mcg (2,000 unit) Capsule 50 mcg PO QPM tamsulosin 0.4 mg capsule 0.4 mg PO DAILY pantoprazole 40 mg tablet,delayed release (DR/EC) 40 mg PO BID spironolactone 25 mg tablet 12.5 mg PO DAILY 30 Days Qty: 30 5RF Hold Instructions: Resume on 09/12/23. potassium chloride [Klor-Con M20] 20 mEq tablet,ER particles/crystals 20 meq PO DAILY PRN (Reason: lasix) carvedilol 12.5 mg tablet 12.5 mg PO DAILY ropinirole 1 mg tablet 1 mg PO DAILY acetaminophen 500 mg Tablet 1,000 mg PO Q6H PRN (Reason: Pain) simvastatin 20 mg tablet 20 mg PO DAILY Jardiance 25 mg tablet 25 mg PO DAILY ProAir HFA 90 mcg/actuation Hfa Aerosol Inhaler 1 inh INHALATION QID PRN (Reason: Shortness Of Breath) Changed Symbicort 160-4.5 mcg/actuation Hfa Aerosol Inhaler 2 inh INHALATION BID Qty: 10.2 0RF Discontinued ibuprofen 200 mg Tablet 400 mg PO Q6H PRN (Reason: Pain) Discharge Orders: Discharge Order (Routine); Ordered 11/02/23 Ordered By: Kimani Stockton Referrals: Pulmonary [Provider Group] - 2 weeks (Asthma, RSV) Emil Oliveira DO [Primary Care Provider] - 4-7 days Patient Instructions: Doxycycline (By mouth), Prednisone (By mouth), Cefdinir (By mouth), RSV (Respiratory Syncytial Virus) Infection (GEN), Opioid Safety Activity Restrictions/Additional Instructions: Please follow-up with your primary doctor for reassessment of recovery from RSV infection, asthma exacerbation, mild congestive heart failure exacerbation. CT angiogram did not show pulmonary embolism. Complete antibiotic course for concern of secondary pneumonia. Continue nebulization treatments at home. Complete brief course of prednisone. In case of worsening or new concerning symptoms seek medical attention. Discharge Attestations Time Spent in Discharge Care*: greater than 30 min Quality Metrics Clinical Quality Measures [ No reported AMI, CVA or VTE this stay] Coding Level of Care Code 71903 Total time (in minutes) for Discharge: 40 Diagnoses Bronchopneumonia J18.0 Narcolepsy G47.419 Anemia D64.9 Type 2 diabetes mellitus with hyperglycemia, without long-term current use of insulin E11.65 Diabetes mellitus complication status: with hyperglycemia Diabetes mellitus [facility] insulin use: without exterminator use Diabetes mellitus type: type 2 Acquired hypothyroidism E03.9 Hypothyroidism type: acquired Pacemaker Z95.0 Chronic diastolic congestive heart failure I50.32 Heart failure chronicity: chronic Heart failure type: diastolic Primary hypertension I10 Hypertension type: primary hypertension Shortness of breath R06.02 Chronic respiratory failure with hypoxia J96.11 Asthma J45.909
--- NOTE | 2023-11-02 14:02 | PC.NURSE ---
Patient and his daughter given discharge education at bedside, IV removed without complication, Patient belongings with daughter and brought to vehicle. Patient and daughter had no questions at the time of discharge, verbalized understanding of education.
== END 2023-11-02 14:05 | disposition home or self-care (01) ==
LOC: ER 18:12 → MEDSURG 11-01 01:21
PROVIDERS: Family Medicine; Student in an Organized Health Care Education/Training Program; Admitting Provider Student in an Organized Health Care Education/Training Program; Emergency Provider Internal Medicine; PCP Emergency Medicine Emergency Medical Services; Visit Provider Internal Medicine
DX: J18.0 Bronchopneumonia, unspecified organism (principal); G47.419 Narcolepsy without cataplexy; D64.9 Anemia, unspecified; E11.65 Type 2 diabetes mellitus with hyperglycemia; E03.9 Hypothyroidism, unspecified; Z95.0 Presence of cardiac pacemaker; I11.0 Hypertensive heart disease with heart failure; I50.32 Chronic diastolic (congestive) heart failure; J96.11 Chronic respiratory failure with hypoxia; J45.909 Unspecified asthma, uncomplicated; G47.33 Obstructive sleep apnea (adult) (pediatric); E78.5 Hyperlipidemia, unspecified; B97.4 Respiratory syncytial virus as the cause of diseases classified elsewhere; Z86.16 Personal history of COVID-19; N40.0 Benign prostatic hyperplasia without lower urinary tract symptoms
CPT/HCPCS: 36415; 36416; 71045; 71275; 80053; 82962; 83036; 83605; 83735; 83880; 84100; 84145; 84443; 84484; 85025; 85378; 85610; 86140; 87040; 87070; 87205; 87426; 87486; 87581; 87633; 87804; 93005; 94640; 94664; 94760; 96365; 96372; 96375; 99285; G0378; J0696; J1650; J1815; J1940; J3490; J7512; J7626; Q9967

== ENCOUNTER → 2023-11-24 10:31 | Outpatient (BNVA) | payer OTHER, SELFPAY | PROVIDERS: PCP Emergency Medicine Emergency Medical Services; Visit Provider Orthopaedic Surgery | DX: Z47.89 Encounter for other orthopedic aftercare (principal); Z98.1 Arthrodesis status; G89.18 Other acute postprocedural pain | CPT/HCPCS: 72100; 99024 ==

== ENCOUNTER → 2023-12-04 09:45 | Outpatient (BNVA) | payer OTHER, SELFPAY | PROVIDERS: PCP Emergency Medicine Emergency Medical Services; Visit Provider Internal Medicine Pulmonary Disease | DX: R06.02 Shortness of breath (principal) | CPT/HCPCS: 36415; 82785; 86003; 99214 ==

== ENCOUNTER → 2023-12-18 08:52 | Outpatient (BNVA) | payer OTHER, SELFPAY | PROVIDERS: PCP Emergency Medicine Emergency Medical Services; Referring Provider Emergency Medicine Emergency Medical Services; Visit Provider Internal Medicine Cardiovascular Disease | DX: I11.0 Hypertensive heart disease with heart failure (principal); I50.32 Chronic diastolic (congestive) heart failure; I48.0 Paroxysmal atrial fibrillation; E78.5 Hyperlipidemia, unspecified; R06.02 Shortness of breath; I25.10 Atherosclerotic heart disease of native coronary artery without angina pectoris; Z95.818 Presence of other cardiac implants and grafts; Z95.0 Presence of cardiac pacemaker; Z98.890 Other specified postprocedural states | CPT/HCPCS: 99214 ==

== ENCOUNTER → 2024-01-14 13:27 | Outpatient (BNVA) | payer OTHER, SELFPAY | PROVIDERS: PCP Emergency Medicine Emergency Medical Services; Visit Provider Orthopaedic Surgery | DX: Z98.1 Arthrodesis status (principal) | CPT/HCPCS: 72100; 99213 ==

== ENCOUNTER 2024-01-21 13:15 | Outpatient (RCR) | payer OTHER, SELFPAY | END 2024-02-02 23:59 | disposition home or self-care (01) | LOC: SPT 13:15 | PROVIDERS: Visit Provider Orthopaedic Surgery | DX: M43.27 Fusion of spine, lumbosacral region (principal) | CPT/HCPCS: 97161 ==

== ENCOUNTER 2024-03-14 06:00 | Outpatient (RCR) | payer OTHER, SELFPAY | END 2024-04-03 23:59 | disposition home or self-care (01) | LOC: SPT 06:00 | PROVIDERS: Visit Provider Orthopaedic Surgery | DX: Z98.1 Arthrodesis status (principal) | CPT/HCPCS: 97113 ==

== ENCOUNTER 2024-04-04 06:00 | Outpatient (RCR) | payer OTHER, SELFPAY | END 2024-05-04 12:22 | disposition home or self-care (01) | LOC: SPT 06:00 | PROVIDERS: Visit Provider Orthopaedic Surgery | DX: M43.27 Fusion of spine, lumbosacral region (principal) | CPT/HCPCS: 97113; 97164 ==

== ENCOUNTER → 2024-04-28 14:15 | Outpatient (BNVA) | payer OTHER, SELFPAY | PROVIDERS: Visit Provider Orthopaedic Surgery | DX: M54.50 Low back pain, unspecified (principal); Z98.1 Arthrodesis status | CPT/HCPCS: 72100; 99213 ==

== ENCOUNTER 2024-06-29 16:54 | Emergency (ER) | payer OTHER, MEDICARE, SELFPAY ==
[2024-06-29 17:04] VITALS: BP 111/74; PULSE 76; RESP 18; TEMP 36.8; O2SAT 94; BMI 42.8
--- NOTE | 2024-06-29 17:17 | USR_ITS ---
PROCEDURE INFORMATION: Exam: US Duplex Right Lower Extremity Veins, Limited Exam date and time: 06/29/2024 5:30 PM Age: 78 years old Clinical indication: Pain; Leg, lower; Right; Additional info: Leg pain TECHNIQUE: Imaging protocol: Real-time duplex ultrasound of the right extremity with 2-D leo scale, color Doppler flow and spectral waveform analysis including responses to compression and other maneuvers (when performed) with image documentation. Limited exam was focused on the right lower extremity veins. COMPARISON: US renal BI* [id number] 12/30/2021 6:19 AM FINDINGS: Right deep veins: Unremarkable. The common femoral, femoral, proximal profunda femoral, popliteal, posterior tibial and peroneal veins are patent without thrombus. Normal Doppler waveforms. Normal compressibility and/or augmentation response. Superficial veins: Greater saphenous vein at the saphenofemoral junction is patent without thrombus. Soft tissues: Unremarkable. US/[place] [id number] IMPRESSION: No sonographic evidence of deep vein thrombosis.
--- NOTE | 2024-06-29 18:21 | XRR_ITS ---
PROCEDURE INFORMATION: Exam: XR Chest Exam date and time: 06/29/2024 6:42 PM Age: 78 years old Clinical indication: Shortness of breath; Prior surgery; Surgery date: 6+ months; Surgery type: Pacer; Additional info: Sob/dx pna TECHNIQUE: Imaging protocol: Radiologic exam of the chest. Views: 1 view. COMPARISON: CT angio chest PE protcl [id number] 11/01/2023 5:48 PM FINDINGS: Tubes, catheters and devices: Left-sided pacemaker with leads overlying the right atrium and right ventricle. Lungs: Streaky opacities at the lung bases, likely secondary to atelectasis and/or scarring. No consolidation. Pleural spaces: Unremarkable. No pleural effusion. No pneumothorax. Heart/Mediastinum: Unremarkable. No cardiomegaly. Bones/joints: No acute osseous abnormality. Degenerative changes. XR/XR chest 1V portable [id number] IMPRESSION: 1. No acute radiographic findings. 2. Additional findings, as above.
--- NOTE | 2024-06-29 18:29 | ECG_ITS ---
[facility] Test Date: 2024-06-29 Pat Name: Lupillo Silveira Department: Room: Gender: Male Para Professional: : 1945 Requested By: Zac Wright Order Number: [id number] Hugo MD: Jaylyn Chase M.D. Measurements Intervals [place] Rate: 75 P: 0 TX: 0 QRS: -77 QRSD: 175 T: 73 QT: 423 QTc: 473 Interpretive Statements ELECTRONIC VENTRICULAR PACEMAKER ABNORMAL RHYTHM ECG Compared to ECG 10/31/2023 21:36:34 No significant changes Electronically Signed On 06-29-2024 23:01:14 CDT by Jaylyn Chase M.D. [id number]
--- NOTE | 2024-06-29 18:41 | ED_ITS ---
HPI - Extremity Problem 2 General: Chief complaint: Extremity Problem,Nontraumatic Stated complaint: possible blood clot in right leg Time Seen by Provider: 06/29/24 17:17 Source: patient Mode of arrival: ambulatory Limitations: no limitations History of Present Illness: Patient is an 78-year-old male past medical history of A-fib, CHF, COPD, and diabetes presenting to the emergency department for right lower extremity pain sudden onset today. Patient states he recently traveled over 5000 miles in a car, and is concerned of a blood clot. He denies any history of blood clots. States he takes a baby aspirin daily but no anticoagulation. Denies any trauma. States he was recently diagnosed with a left lower lobe pneumonia, currently is taking Levaquin as well as Augmentin for a sinus infection. States he is having increasing shortness of breath. Denies any chest pain, fevers, or other symptoms at this time. He also is noting that his left lower extremity started to cause some pain in the calf as well. MD Complaint: extremity pain Onset (ago): hour(s) Pain Consistency: constant Location: right Exacerbating factors: weight bearing Associated symptoms: Reports short of breath; Deny chest pain, fever(s) or rash Context: recent travel Related Data Home Medications Medication Instructions Recorded Confirmed cholecalciferol (vitamin D3) 50 50 mcg PO QPM 12/11/19 04/28/24 mcg (2,000 unit) capsule (Vitamin D3) levothyroxine 137 mcg tablet 137 mcg PO DAILY@04 12/11/19 04/28/24 (Synthroid) modafinil 200 mg tablet (Provigil) 200 mg PO DAILY@12/11/19 04/28/24 tamsulosin 0.4 mg capsule 0.4 mg PO DAILY 07/17/20 04/28/24 albuterol sulfate 2.5 mg/3 mL 2.5 mg continuous nebulization QID 12/12/20 04/28/24 (0.083 %) solution for nebulization PRN shortness of breath or wheezing aspirin 81 mg tablet,delayed 81 mg PO DAILY 12/27/20 04/28/24 release (Adult Aspirin Regimen) potassium chloride 20 mEq 20 meq PO DAILY PRN lasix 06/11/22 04/28/24 tablet,extended release(part/cryst) (Klor-Con M) furosemide 40 mg tablet 20 mg PO DAILY PRN Edema 08/21/23 04/28/24 pantoprazole 40 mg tablet,delayed 40 mg PO BID 09/01/23 04/28/24 release acetaminophen 500 mg tablet 1,000 mg PO Q6H PRN Pain 10/31/23 04/28/24 albuterol sulfate 90 mcg/actuation 1 inh inhalation QID PRN Shortness 10/31/23 04/28/24 aerosol inhaler (ProAir HFA) Of Breath carvedilol 12.5 mg tablet 12.5 mg PO DAILY 10/31/23 04/28/24 ropinirole 1 mg tablet 1 mg PO DAILY 10/31/23 04/28/24 simvastatin 20 mg tablet 20 mg PO DAILY 10/31/23 04/28/24 Previous Rx's Medication Instructions Recorded cetirizine 10 mg tablet (Zyrtec) 10 mg PO DAILY PRN allergy 01/09/21 symptoms #20 tabs montelukast 10 mg tablet 10 mg PO DAILY #30 tabs 01/09/21 (Singulair) Bone Growth Stimulator E0748 #1 ea 05/05/22 oxycodone 5 mg tablet 5 mg PO Q4H PRN pain 7 days #40 09/16/23 tabs budesonide 160 mcg-glycopyr 9 2 inh inhalation BID #10.7 grams 12/04/23 mcg-formot 4.8 mcg/actuation HFA inhaler (Breztri Aerosphere) empagliflozin 25 mg tablet 25 mg PO DAILY #180 tabs 12/28/23 (Jardiance) Allergies Allergy/AdvReac Type Severity Reaction Status Date / Time apixaban [From Eliquis] Allergy Severe bleeding Verified 04/28/24 15:26 ibuprofen [From Motrin] Allergy renal Verified 04/28/24 15:26 failure rivaroxaban [From Xarelto] Allergy bleeding Verified 04/28/24 15:26 tolmetin [From Tolectin] Allergy ALGY-Rash Verified 04/28/24 15:26 Review of Systems 2 General: Reports: 10 or more systems reviewed and unremarkable except in HPI and below Const: Denies: fever(s), chills or fatigue Eyes: Denies: change in vision ENMT: Denies: throat pain, ear or mastoid pain or nasal discharge Card: Denies: chest pain, palpitations, swelling of feet/ankles or lightheadedness Resp: Reports: dyspnea; Denies: productive cough or wheezing GI: Denies: abdominal pain, nausea, vomiting, diarrhea or constipation : Denies: flank pain, difficulty urinating, dysuria or urinary frequency Musc: Reports: extremity pain; Denies: neck pain, back pain or joint pain Skin/Breast: Denies: rash Neuro: Denies: headache(s), numbness in extremities or weakness in extremities PFSH ED 2 PFSH: Medical History Diverticulosis large intestine w/o perforation or abscess w/bleeding History of colon polyps Dupuytren's disease of palm of left hand Trigger finger, right middle finger Trigger finger, left ring finger Osteoarthritis of hands, bilateral Congestive heart failure Systolic and diastolic. EF of 34% on echocardiogram from 12/2020. EF of 60% on echocardiogram from 12/2021. H/O diabetic nephropathy History of left heart catheterization (LHC) 12/2020 60 to 70% diffuse disease in the first diagonal branch of the left anterior descending artery. He had around 40 to 50% lesions in the distal left and descending artery. Minimal intimal irregularities in the RCA and the left circumflex artery. Based on angiographic findings, he was treated medically. Asthma Atherosclerotic heart disease of [place] coronary artery without angina pectoris Abnormal cardiovascular stress test Diabetes mellitus Primary osteoarthritis of knees, bilateral SHER (obstructive sleep apnea) COVID-19 Right fibular fracture Spontaneous hemorrhage This patient bled into the right calf muscle and had hematuria with Xarelto Shortness of breath on exertion Dyslipidemia Cerebral arterial aneurysm Intermittent atrial fibrillation Atrial fibrillation status post cardioversion Narcolepsy Peripheral arterial disease Hypertension Benign prostatic hyperplasia Hypothyroidism Surgical History History of colonoscopy 5 years ago History of esophagogastroduodenoscopy 30 years ago History of umbilical hernia repair (~12/2021) S/P spinal fusion H/O cardiac radiofrequency ablation x 2 Pacemaker Presence of Watchman left atrial appendage closure device History of cataract surgery Bilateral History of knee surgery Bilateral arthroscopy (multiple on each side) S/P rotator cuff repair Left Family History Other CAD (coronary artery disease) Cancer Hypertension Stroke Social History Smoking and tobacco/nicotine status: never used tobacco/nicotine Second hand smoke exposure: Yes Alcohol intake: never Substance/Drug Use: never Lives independently: Yes Household members: spouse and children Housing: House Marital status: service: Yes 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 Do you think of yourself as: Straight/Heterosexual Current gender identity: Male Physical Exam 2 Const: COMMON NORMALS: no acute distress, patient oriented x3 and no limitations GENERAL APPEARANCE: cooperative, comfortable and well developed ORIENTATION/CONSCIOUSNESS: Yes awake, Yes oriented to person, Yes oriented to place and Yes oriented to time HENMT: COMMON NORMALS: normocephalic, atraumatic, hearing grossly normal bilaterally, moist oral mucous membranes and oropharynx normal HEAD & SCALP: normocephalic and atraumatic Eye: COMMON NORMALS: Equal, round and reactive pupils present, EOMs intact bilaterally and conjunctivae normal CONJUNCTIVA: Yes conjunctivae normal P UPIL: Yes Equal, round and reactive pupils present Neck/C-Spine: COMMON NORMALS: full ROM, supple and no JVD Resp: COMMON NORMALS: normal respiratory effort, No retractions and No use of accessory muscles AUSCULTATION: wheezes (Diffuse expiratory wheezing) Cardio: COMMON NORMALS: no JVD, regular rate, regular rhythm, No clicks present (Cardio), No murmurs present (Cardio) and No rub (Cardio) RATE: r egular rate RHYTHM: regular rhythm GI: COMMON NORMALS: Normal to inspection, nondistended, normoactive bowel sounds present, Soft to palpation and non-tender INSPECTION: Yes central obesity AUSCULTATION: Yes normoactive bowel sounds PALPATION: Yes Soft to palpation RECTAL EXAM: Yes deferred Extremity: COMMON NORMALS: normal to inspection, full ROM and capillary refill normal NARRATIVE EXTREMITY EXAM: Chronic venous stasis changes bilaterally with multiple varicosities. Pulses palpable but weak bilaterally to DP/PT. Tenderness to palpation of both calfs, no palpable cord. Positive Homans' sign on the right. Neuro: COMMON NORMALS: patient oriented x3, moves all extremities, no focal motor deficits and no sensory deficits noted SENSORIUM/ORIENTATION: Yes oriented to person, Yes oriented to place and Yes oriented to time Psych: COMMON NORMALS: mental status grossly normal and Normal thought process present THOUGHT PROCESS: Normal thought process present Skin: COMMON NORMALS: no rashes or lesions noted GENERAL SKIN EXAM: no rashes or lesions noted Course 2 Vital Signs: Vital signs: Vital Signs Temperature 98.2 F 06/29/24 17:04 Pulse Rate 91 06/29/24 20:09 Respiratory Rate 18 06/29/24 19:00 Blood Pressure 132/86 06/29/24 20:09 Pulse Oximetry 91 06/29/24 20:09 Oxygen Delivery Me thod Room Air 06/29/24 19:00 MDM - Extremity (Nontraumatic) Medical Decision Making Patient presented with acute onset of right calf pain onset today. Also began noting some left calf pain. States he recently was on a [address] trip and just got back the other day. Denies history of blood clots. States he currently has been dealing with a left lower lobe pneumonia, though chest x-ray obtained today did not show any signs of this, did show some basilar atelectasis. Ultrasound of right lower extremity did not reveal any signs of a DVT. Lab work essentially unremarkable, he did have history of CHF and did not appear fluid overloaded at this time. After breathing treatment, he states he was feeling much better in terms of his shortness of breath, and do believe his pain more musculoskeletal at this time and unlikely an occlusion. He did have evidence of chronic venous stasis changes and multiple varicosities on physical exam, encouraged to follow-up with primary care for further evaluation. Reasons to return discussed. Lab Data 06/29/24 19:00 06/29/24 19:00 Radiology Impressions Venous Duplex 06/29/24 17:17 IMPRESSION: No sonographic evidence of deep vein thrombosis. Chest X-Ray 06/29/24 18:21 IMPRESSION: 1. No acute radiographic findings. 2. Additional findings, as above. Laboratory Results WBC 8.78 10^3/uL (3.29-11.43) 06/29/24 19:00 RBC 5.35 10^6/uL (3.85-5.65) 06/29/24 19:00 Hgb 15.40 g/dL (11.27-16.99) 06/29/24 19:00 Hct 47.7 % (37-53) 06/29/24 19:00 MCV 89.2 fl (82-101) 06/29/24 19:00 MCH 28.8 pg (27-33) 06/29/24 19:00 MCHC 32.3 g/dL (30-55) 06/29/24 19:00 RDW 15.2 % (12.1-15.1) H 06/29/24 19:00 Plt Count 197 10^3/cmm (157-399) 06/29/24 19:00 MPV 9.3 fL (7.4-10.4) 06/29/24 19:00 Neut % (Auto) 80.0 % 06/29/24 19:00 Lymph % (Auto) 13.4 % 06/29/24 19:00 Cottle % (Auto) 5.8 % 06/29/24 19:00 Eos % (Auto) 0.3 % 06/29/24 19:00 Baso % (Auto) 0.2 % 06/29/24 19:00 Neut # (Auto) 7.01 10^3/uL (1.8-7.7) 06/29/24 19:00 Lymph # (Auto) 1.2 10^3/uL (0.8-4.8) 06/29/24 19:00 Cottle # (Auto) 0.5 10^3/uL (0.2-0.9) 06/29/24 19:00 Eos # (Auto) 0.0 10^3/uL (0.0-0.8) 06/29/24 19:00 Baso # (Auto) 0.0 10^3/uL (0.0-0.1) 06/29/24 19:00 Nucleated RBC % (auto) 0 % 06/29/24 19:00 Nucleated RBCs # 0.0 /100WBC 06/29/24 19:00 Sodium 134 mmol/L (136-145) L 06/29/24 19:00 Potassium 4.6 mmol/L (3.5-5.1) 06/29/24 19:00 Chloride 100 mmol/L (98-107) 06/29/24 19:00 Carbon Dioxide 22 mmol/L (22-29) 06/29/24 19:00 Anion Gap 16.6 (5-19) 06/29/24 19:00 BUN 17 mg/dL (8-23) 06/29/24 19:00 Creatinine 0.8 mg/dL (0.7-1.2) 06/29/24 19:00 GFR Calculation Not Reportable 06/29/24 19:00 Glucose 122 mg/dL (65-115) H 06/29/24 19:00 Calculated Osmolality 281 mOsm/kg (285-295) L 06/29/24 19:00 Calcium 8.7 mg/dL (8.5-10.5) 06/29/24 19:00 Total Bilirubin 0.5 mg/dL (0.15-1.2) 06/29/24 19:00 AST 16 U/L (0-40) 06/29/24 19:00 ALT 18 U/L (0-41) 06/29/24 19:00 Alkaline Phosphatase 116 U/L (40-130) 06/29/24 19:00 Troponin T Baseline 9 ng/L (0-15) 06/29/24 19:00 NT-Pro-B Natriuret Pep 1195 pg/mL (0-450) H 06/29/24 19:00 Total Protein 6.4 g/dL (6.6-8.7) L 06/29/24 19:00 Albumin 3.9 g/dL (3.5-5.2) 06/29/24 19:00 Globulin 2.5 g/dL (1.3-4.6) 06/29/24 19:00 All radiology interpretation(s) finalized by discharge Discharge Plan Discharge Patient Disposition: Home Clinical Impression: Bilateral leg pain Condition: Stable Prescriptions: No Action cetirizine [Zyrtec] 10 mg tablet 10 mg PO DAILY PRN (Reason: allergy symptoms) Qty: 20 0RF montelukast [Singulair] 10 mg tablet 10 mg PO DAILY Qty: 30 3RF albuterol sulfate 2.5 mg /3 mL (0.083 %) solution for nebulization 2.5 mg continuous nebulization QID PRN (Reason: shortness of breath or wheezing) aspirin [Adult Aspirin Regimen] 81 mg tablet,delayed release (DR/EC) 81 mg PO DAILY Hold Instructions: Resume on 06/17/22. Breztri Aerosphere 160-9-4.8 mcg/actuation HFA aerosol inhaler 2 inh inhalation BID Qty: 10.7 3RF furosemide 40 mg tablet 20 mg PO DAILY PRN (Reason: Edema) oxycodone 5 mg tablet 5 mg PO Q4H PRN (Reason: pain) 7 Days Qty: 40 0RF (DME) Bone Growth Stimulator E0748 See Rx Instructions .Route .MEDSUPPLY Qty: 1 0RF Rx Instructions: As directed Jardiance 25 mg tablet 25 mg PO DAILY Qty: 180 3RF levothyroxine [Synthroid] 137 mcg Tablet 137 mcg PO DAILY@04 modafinil [Provigil] 200 mg Tablet 200 mg PO DAILY@06 cholecalciferol (vitamin D3) [Vitamin D3] 50 mcg (2,000 unit) Capsule 50 mcg PO QPM tamsulosin 0.4 mg capsule 0.4 mg PO DAILY pantoprazole 40 mg tablet,delayed release (DR/EC) 40 mg PO BID potassium chloride [Klor-Con M20] 20 mEq tablet,ER particles/crystals 20 meq PO DAILY PRN (Reason: lasix) carvedilol 12.5 mg tablet 12.5 mg PO DAILY ropinirole 1 mg tablet 1 mg PO DAILY acetaminophen 500 mg Tablet 1,000 mg PO Q6H PRN (Reason: Pain) simvastatin 20 mg tablet 20 mg PO DAILY ProAir HFA 90 mcg/actuation Hfa Aerosol Inhaler 1 inh INHALATION QID PRN (Reason: Shortness Of Breath) Discharge Orders: Discharge ED (Routine); Ordered 06/29/24 Ordered By: Zac Tafoya Referrals: Gregoria Blake, [facility] [Primary Care Provider] - Discharge Diet: As Directed Discharge Activity: Increase activity as tolerated Patient Instructions: Pain Management Activity Restrictions/Additional Instructions: Please continue taking medications as prescribed. Compression stockings. Continue O2 at night as needed. Please follow-up with your primary care provider in the next couple of days. If you develop any new or concerning symptoms, please return for reevaluation. Coding Level of Care Code ED Collar Stitcher for Matt Rocha
[2024-06-29 18:55] VITALS: BP 121/89; PULSE 75; O2SAT 93
[2024-06-29 19:00] VITALS: PULSE 75; RESP 18; O2SAT 94
[2024-06-29] MEDS: ipratropium-albuterol 3 mL Neb INHALATION (19:00)
[2024-06-29 19:06] LABS: Basophils % 0.2 %; Eosinophils % 0.3 %; Hematocrit 47.7 % (37-53); Lymphocytes # 1.2 10^3/uL (0.8-4.8); Lymphocytes % 13.4 %; Mean Corpuscular HGB Conc 32.3 g/dL (30-55); Mean Corpuscular Hemoglobin 28.8 pg (27-33); Mean Corpuscular Volume 89.2 fl (82-101); Mean Platelet Volume 9.3 fL (7.4-10.4); Monocytes # 0.5 10^3/uL (0.2-0.9); Monocytes % 5.8 %; Neutrophils # 7.01 10^3/uL (1.8-7.7); Nucleated Red Blood Cells % 0 %; Platelet Count 197 10^3/cmm (157-399); Red Blood Count 5.35 10^6/uL (3.85-5.65); Red Cell Distribution Width 15.2 % (12.1-15.1); White Blood Count 8.78 10^3/uL (3.29-11.43)
[2024-06-29 19:24] LABS: Troponin(5th) Baseline 9 ng/L (0-15)
[2024-06-29 19:40] LABS: Alanine Aminotransferase 18 U/L (0-41); Albumin Level 3.9 g/dL (3.5-5.2); Alkaline Phosphatase 116 U/L (40-130); Anion Gap 16.6 (5-19); Aspartate Amino Transferase 16 U/L (0-40); Blood Urea Nitrogen 17 mg/dL (8-23); Calcium 8.7 mg/dL (8.5-10.5); Carbon Dioxide 22 mmol/L (22-29); Chloride 100 mmol/L (98-107); Creatinine Clr Calc Pharmacy 96.0471; Globulin 2.5 g/dL (1.3-4.6); Glucose 122 mg/dL (65-115); NT Pro B Type Natriuretic Pept 1195 pg/mL (0-450); Osmolality Calculated 281 mOsm/kg (285-295); Potassium 4.6 mmol/L (3.5-5.1); Sodium 134 mmol/L (136-145); Total Bilirubin 0.5 mg/dL (0.15-1.2); Total Protein 6.4 g/dL (6.6-8.7)
[2024-06-29 20:08] VITALS: BP 132/86; PULSE 75; O2SAT 91
[2024-06-29 20:09] VITALS: BP 132/86; PULSE 91; O2SAT 91
== END 2024-06-29 20:10 | disposition home or self-care (01) ==
PROVIDERS: Emergency Provider Physician Assistant; PCP Nurse Practitioner Family
DX: M79.604 Pain in right leg (principal); M79.605 Pain in left leg; Z79.82 Long term (current) use of aspirin; Z77.22 Contact with and (suspected) exposure to environmental tobacco smoke (acute) (chronic); Z95.0 Presence of cardiac pacemaker; I11.0 Hypertensive heart disease with heart failure; I50.40 Unspecified combined systolic (congestive) and diastolic (congestive) heart failure; I25.10 Atherosclerotic heart disease of native coronary artery without angina pectoris; E11.21 Type 2 diabetes mellitus with diabetic nephropathy; E78.5 Hyperlipidemia, unspecified
CPT/HCPCS: 36415; 71045; 80053; 83880; 84484; 85025; 93005; 93971; 94640; 99285

== ENCOUNTER → 2024-07-04 15:00 | Outpatient (BNVA) | payer OTHER, MEDICARE, SELFPAY | PROVIDERS: PCP Nurse Practitioner Family; Visit Provider Internal Medicine | DX: R06.02 Shortness of breath (principal); I11.0 Hypertensive heart disease with heart failure; I50.32 Chronic diastolic (congestive) heart failure; I48.0 Paroxysmal atrial fibrillation; E78.5 Hyperlipidemia, unspecified; I25.10 Atherosclerotic heart disease of native coronary artery without angina pectoris; Z95.818 Presence of other cardiac implants and grafts; Z95.0 Presence of cardiac pacemaker; Z98.890 Other specified postprocedural states | CPT/HCPCS: 99214 ==

== ENCOUNTER → 2024-07-11 08:34 | Outpatient (BNVA) | payer OTHER, SELFPAY | PROVIDERS: PCP Nurse Practitioner Family; Visit Provider Specialist | DX: S46.212A Strain of muscle, fascia and tendon of other parts of biceps, left arm, initial encounter (principal); M25.511 Pain in right shoulder; X50.0XXA Overexertion from strenuous movement or load, initial encounter | CPT/HCPCS: 73030; 99214 ==

== ENCOUNTER → 2024-07-13 08:11 | Outpatient (BNVA) | payer OTHER, SELFPAY | PROVIDERS: PCP Nurse Practitioner Family; Visit Provider Specialist | DX: M12.811 Other specific arthropathies, not elsewhere classified, right shoulder (principal) | CPT/HCPCS: 20610; 99214; J1100; J2795; J3301 ==

== ENCOUNTER 2024-07-27 12:03 | Outpatient (CLI) | payer OTHER, SELFPAY ==
--- NOTE | 2024-07-27 12:15 | USCV_ITS ---
Lupillo Silveira Age: 78 Gender: M : 1945 Exam Date: 07/27/2024 12:32 Ordering Phys: Eduard Crawford M.D ([email or web address]) Technologist: CT Exam Location: [facility] [place] Indication: BP: 110 / 70 HR: 74 Rhythm: Sinus Technical Quality: Adequate MEASUREMENTS (Male / Female) Normal Values 2D ECHO LVOT Diameter 2.2 cm LV Ejection Fraction MOD 4C 45.3 % LV Ejection Fraction MOD 2C 50.0 % LV Ejection Fraction 2C AL 49.7 % LA Diameter 6.0 cm RA Systolic Volume 4C AL 70.3 ml RA Systolic Volume 4C MOD 67.6 ml LA Sys Volume AL 93.6 cm cubed LA Sys Volume Index AL 36.6 cm cubed/m squared Aorta at Sinotubular Diameter 3.4 cm M-MODE LA Ao Ratio MM 1.7 AV Cusp Separation MM 2.8 cm DOPPLER AV Peak Velocity 271.3 cm/s LVOT Peak Velocity 88.0 cm/s AV Area Cont Eq vti 3.9 cm squared AV Area Cont Eq pk 1.3 cm squared MV Peak Velocity 85.0 cm/s MV Area PHT 4.6 cm squared Mitral E to A Ratio 0.8 TR Peak Velocity 245.0 cm/s TR Peak Gradient 24.0 mmHg TV Peak E Velocity 56.0 cm/s Right Atrial Pressure 3.0 mmHg Pulmonary Artery Systolic Pressu 27.0 mmHg PV Peak Velocity 98.0 cm/s FINDINGS Left Ventricle Normal LV size with slightly diminished ejection fraction of 50%. Mild diffuse hypokinesis of the left ventricle Right Ventricle Possibly normal RV size and ejection fraction Right Atrium Moderately increased right atrial size. Left Atrium Moderately increased left atrial size. Mitral Valve No gross abnormalities noted.trace mitral valve regurgitation. Aortic Valve Moderate eccentric aortic regurgitation with the regurgitant jet directed posteriorly Tricuspid Valve No gross abnormalities noted.trace tricuspid valve regurgitation. Estimated pulmonary artery peak systolic pressure 27 mmHg Pulmonic Valve Structurally normal pulmonic valve without significant stenosis. There is no pulmonic regurgitation. Pericardium Normal pericardium without effusion. Aorta Normal aortic annulus size. IVC Inferior vena cava not visualized. CONCLUSIONS Normal LV size with slightly diminished ejection fraction of 50%. Mild diffuse hypokinesis of the left ventricle. Moderate biatrial enlargement. Moderate eccentric aortic regurgitation with the regurgitant jet directed posteriorly. There is no pericardial effusion. There are no intracardiac masses. Trace tricuspid valve regurgitation. Estimated pulmonary artery peak systolic pressure 27 mmHg. There is no pericardial effusion. There are no intracardiac masses. Compared to the study from 12/28/2021, there LV ejection fraction has dropped from 60% to 50% Dr Jaylyn Chase MD [facility] (Electronically Signed) Final Date: 30 July 2024 17:48 S
== END 2024-07-27 12:04 | disposition home or self-care (01) ==
LOC: RAD 12:05
PROVIDERS: PCP Nurse Practitioner Family; Visit Provider Internal Medicine
DX: I35.1 Nonrheumatic aortic (valve) insufficiency (principal); I51.7 Cardiomegaly; R06.02 Shortness of breath
CPT/HCPCS: 93306

== ENCOUNTER → 2024-09-15 13:03 | Outpatient (BNVA) | payer OTHER, SELFPAY | PROVIDERS: PCP Nurse Practitioner Family; Visit Provider Orthopaedic Surgery | DX: Z98.1 Arthrodesis status (principal); M43.17 Spondylolisthesis, lumbosacral region | CPT/HCPCS: 72100; 99213 ==

== ENCOUNTER → 2024-10-27 10:51 | Outpatient (BNVA) | payer OTHER, SELFPAY | PROVIDERS: PCP Nurse Practitioner Family; Visit Provider Student in an Organized Health Care Education/Training Program | DX: M65.341 Trigger finger, right ring finger (principal); M65.321 Trigger finger, right index finger | CPT/HCPCS: 20600; 99214; J3301; J3490 ==

== ENCOUNTER → 2025-01-02 09:27 | Outpatient (BNVA) | payer OTHER, SELFPAY | PROVIDERS: PCP Nurse Practitioner Family; Visit Provider Nurse Practitioner Family | DX: I10 Essential (primary) hypertension (principal); I48.0 Paroxysmal atrial fibrillation; R06.02 Shortness of breath; I25.10 Atherosclerotic heart disease of native coronary artery without angina pectoris; Z95.818 Presence of other cardiac implants and grafts; Z95.0 Presence of cardiac pacemaker; Z98.890 Other specified postprocedural states; I50.32 Chronic diastolic (congestive) heart failure | CPT/HCPCS: 99214 ==

== ENCOUNTER 2025-03-21 11:45 | Inpatient (IN) | payer OTHER, SELFPAY ==
[2025-03-21] VITALS (83 sets, daily range): BP systolic 107–149; BP diastolic 63–92; PULSE 55–83; RESP 9–27; TEMP 36.7; O2SAT 90–100; BMI 47.2
--- NOTE | 2025-03-21 11:57 | CT_ITS ---
WS: [id number] CT HEAD TECHNIQUE: Noncontrast CT of the head obtained from the skullbase to the vertex. CLINICAL INFORMATION: Symptoms of acute stroke COMPARISON: 2021 DLP: [address] scans at [facility] use at least one of these dose optimization techniques: automated exposure control; mA and/or kV adjustment per patient size (includes targeted exams where dose is matched to clinical indication); or iterative reconstruction. FINDINGS: No evidence of intracranial hemorrhage or mass effect. Ventricular system and basal cisterns are patent. Moderate small vessel changes with moderate parenchymal volume loss. Stable appearing fusiform aneurysmal dilatation of the RIGHT MCA. Large LEFT MCA bifurcation aneurysm measuring 1.7 cm. Fusiform aneurysmal anterior communicating artery. Intracranial vascular calcification. Dolichoectatic basilar artery. Fusiform dilatation RIGHT ICA terminus. Polypoid mucosal thickening in the anterior superior nasal turbinates. CT/CT head thrombolytic 31465 IMPRESSION: 1. No evidence of intracranial hemorrhage or mass effect. 2. Previously described numerous aneurysms are similar in appearance. Notified Lakeshia Paula MD at 03/21/2025 12:34 PM.
[2025-03-21 12:03] LABS: Glucose Point of Care 156 mg/dL (70-110)
--- NOTE | 2025-03-21 12:10 | CT_ITS ---
WS: [id number] CTA HEAD AND NECK TECHNIQUE: Contrast enhanced CTA of the head and neck with coronal and sagittal reformatted images and maximum intensity projection (MIP) images. NASCET criteria utilized. CLINICAL INFORMATION: stroke like symptoms COMPARISON: None. DLP: 898.[address] scans at [facility] use at least one of these dose optimization techniques: automated exposure control; mA and/or kV adjustment per patient size (includes targeted exams where dose is matched to clinical indication); or iterative reconstruction. FINDINGS: RIGHT: Right common carotid artery is patent. No significant right ICA stenosis. Mild carotid bulb calcification. Right ICA is patent to the skull base. Tortuous cervical ICA at the skull base. LEFT: Left common carotid artery is patent. No significant left ICA stenosis. Left ICA is patent to the skull base. 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 Stable fusiform RIGHT M1 segment. Fusiform dilatation of the RIGHT ICA terminus. Fusiform dilatation/aneurysm of the anterior communicating artery is stable measuring 6 mm. Distal vertebral arteries are patent. Basilar artery is patent. Normal vascularity to the [employer] territory bilaterally with moderate segmental atheromatous stenosis. Both ICAs are patent at the skull base. Tortuous cavernous carotid arteries with calcification. Absent LEFT A1 segment. Normal vascularity to the DANIEL and MCA territories bilaterally. Dense calcification at the left greater than right MCA trifurcations. Dolichoectatic vertebrobasilar system. CT/CT angio headneck* [id number] IMPRESSION: 1. No significant cervical ICA stenosis. Both ICAs are patent to the skull bas e. 2. 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 3. Codominant and patent vertebral arteries bilaterally with dolichoectatic ve rtebrobasilar system. Basilar artery is patent. 4. No high-grade proximal flow-limiting stenosis. Moderate intracranial athero matous disease with areas of segmental stenosis involving the [employer] territory jethro aterally and second and third order MCA territory branches
--- NOTE | 2025-03-21 12:11 | W.ED.NEUROSD ---
HPI - Neuro Symptoms/Deficit General: Chief Complaint: Neuro Symptoms/Deficit Stated Complaint: headache, dizziness Time Seen by Provider: 03/21/25 11:57 Source: patient Mode of arrival: ambulatory Limitations: no limitations History of Present Illness: 79-year-old male who states that starting roughly 11:00 he had had a slight headache then became very dizzy ataxic was having some slurred speech, blurred vision. He continues have some mild slurred speech and ataxia states his headache is resolved has a history of aneurysm in the past no known history of stroke. Associated symptoms: Reports headache(s); Deny chest pain, nausea or vomiting Related Data Home Medications ?Medication ?Instructions ?Recorded ?Confirmed cholecalciferol (vitamin D3) 50 50 mcg PO QPM 12/11/19 01/02/25 mcg (2,000 unit) capsule (Vitamin D3) levothyroxine 137 mcg tablet 137 mcg PO DAILY@12/11/19 01/02/25 (Synthroid) modafinil 200 mg tablet (Provigil) 200 mg PO DAILY@12/11/19 01/02/25 tamsulosin 0.4 mg capsule 0.4 mg PO DAILY 07/17/20 01/02/25 albuterol sulfate 2.5 mg/3 mL 2.5 mg continuous nebulization QID 12/12/20 01/02/25 (0.083 %) solution for nebulization PRN shortness of breath or wheezing aspirin 81 mg tablet,delayed 81 mg PO DAILY 12/27/20 01/02/25 release (Adult Aspirin Regimen) furosemide 40 mg tablet 20 mg PO DAILY PRN Edema 08/21/23 01/02/25 pantoprazole 40 mg tablet,delayed 40 mg PO BID 09/01/23 01/02/25 release acetaminophen 500 mg tablet 1,000 mg PO Q6H PRN Pain 10/31/23 01/02/25 albuterol sulfate 90 mcg/actuation 1 inh inhalation QID PRN Shortness 10/31/23 01/02/25 aerosol inhaler (ProAir HFA) Of Breath carvedilol 12.5 mg tablet 12.5 mg PO DAILY 10/31/23 01/02/25 ropinirole 1 mg tablet 1 mg PO DAILY 10/31/23 01/02/25 simvastatin 20 mg tablet 20 mg PO DAILY 10/31/23 01/02/25 ferrous sulfate 325 mg (65 mg 325 mg PO DAILY 07/04/24 01/02/25 iron) tablet finasteride 5 mg tablet 5 mg PO DAILY 07/04/24 01/02/25 folic acid 1 mg tablet 1 mg PO DAILY 07/04/24 01/02/25 spironolactone 25 mg tablet 12.5 mg PO DAILY 07/04/24 01/02/25 Previous Rx's ?Medication ?Instructions ?Recorded montelukast 10 mg tablet 10 mg PO DAILY #30 tabs 01/09/21 (Singulair) Bone Growth Stimulator E0748 #1 ea 05/05/22 budesonide 160 mcg-glycopyr 9 2 inh inhalation BID #10.7 grams 12/04/23 mcg-formot 4.8 mcg/actuation HFA inhaler (Breztri Aerosphere) empagliflozin 25 mg tablet 25 mg PO DAILY #180 tabs 01/24/25 (Jardiance) Allergies Allergy/AdvReac Type Severity Reaction Status Date / Time apixaban (From Eliquis) Allergy Severe bleeding Verified 01/02/25 09:37 ibuprofen (From Motrin) Allergy renal Verified 01/02/25 09:37 failure rivaroxaban (From Xarelto) Allergy bleeding Verified 01/02/25 09:37 tolmetin (From Tolectin) Allergy ALGY-Rash Verified 01/02/25 09:37 Review of Systems Const: Denies: fever(s), chills, body aches or change in appetite Eyes: Reports: blurry vision; Denies: eye discomfort ENMT: Denies: throat pain or dental pain Card: Denies: chest pain Resp: Denies: dyspnea GI: Denies: abdominal pain, nausea, vomiting or diarrhea Musc: Denies: neck pain or back pain Skin/Breast: Denies: rash Neuro: Reports: headache(s), weakness in extremities and difficulty walking PFSH ED PFSH: Medical History Diverticulosis large intestine w/o perforation or abscess w/bleeding History of colon polyps Dupuytren's disease of palm of left hand Trigger finger, right middle finger Trigger finger, left ring finger Osteoarthritis of hands, bilateral Congestive heart failure EF of 50% on echocardiogram 07/2024. H/O diabetic nephropathy History of left heart catheterization (LHC) 12/2020 60 to 70% diffuse disease in the first diagonal branch of the left anterior descending artery. He had around 40 to 50% lesions in the distal left and descending artery. Minimal intimal irregularities in the RCA and the left circumflex artery. Based on angiographic findings, he was treated medically. Asthma Atherosclerotic heart disease of [place] coronary artery without angina pectoris Abnormal cardiovascular stress test Diabetes mellitus Primary osteoarthritis of knees, bilateral SHER (obstructive sleep apnea) COVID-19 Right fibular fracture Spontaneous hemorrhage This patient bled into the right calf muscle and had hematuria with Xarelto Shortness of breath on exertion Dyslipidemia Cerebral arterial aneurysm Intermittent atrial fibrillation Atrial fibrillation status post cardioversion Narcolepsy Peripheral arterial disease Hypertension Benign prostatic hyperplasia Hypothyroidism Surgical History History of colonoscopy 5 years ago History of esophagogastroduodenoscopy 30 years ago History of umbilical hernia repair (~12/2021) S/P spinal fusion H/O cardiac radiofrequency ablation x 2 Pacemaker Presence of Watchman left atrial appendage closure device History of cataract surgery Bilateral History of knee surgery Bilateral arthroscopy (multiple on each side) S/P rotator cuff repair Left Family History Other CAD (coronary artery disease) Cancer Hypertension Stroke Social History Smoking and tobacco/nicotine status: never used tobacco/nicotine Second hand smoke exposure: Yes Alcohol intake: never Substance/Drug Use: never Lives independently: Yes Household members: spouse and children Housing: House Marital status: service: Yes 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 Do you think of yourself as: Straight/Heterosexual Current gender identity: Male NIH stroke score NIHSS: Level Of Consciousness - 1a: 0 Level Of Consciousness Questions - 1b: Both Correct Level Of Consciousness Commands - 1c: Both Correct Best Gaze - 2: Normal Visual Blue - 3: No Visual Loss Facial Palsy - 4: Normal Motor Arm Right - 5: No Drift Motor Arm Left - 5: No Drift Motor Leg Right - 6: No Drift Motor Leg Left - 6: No Drift Limb Ataxia - 7: Absent Sensory - 8: Normal Best Language - 9: Mild/Moderate Aphasia Dysarthia - 10: Normal Extinction And Inattention - 11: 0 Score: Total Score: 1 Physical Exam Const: COMMON NORMALS: patient oriented x3 HENMT: COMMON NORMALS: normocephalic and atraumatic HEAD & SCALP: normocephalic and atraumatic Eye: COMMON NORMALS: Equal, round and reactive pupils present, EOMs intact bilaterally and conjunctivae normal VISUAL BLUE: No peripheral vision loss, No central vision loss, No left visual field cut, No right visual field cut, No bitemporal visual field cut, No binasal visual field cut and No visual field cut by quadrant CONJUNCTIVA: Yes conjunctivae normal PUPIL: Yes Equal, round and reactive pupils present Neck/C-Spine: COMMON NORMALS: full ROM and supple Chest: COMMONS NORMALS: normal inspection of the chest Resp: COMMON NORMALS: normal respiratory effort, No retractions, No use of accessory muscles and clear to auscultation bilaterally AUSCULTATION: clear to auscultation bilaterally Cardio: COMMON NORMALS: regular rate, regular rhythm and No murmurs present (Cardio) RATE: regular rate RHYTHM: regular rhythm Extremity: COMMON NORMALS: normal to inspection and full ROM Neuro: COMMON NORMALS: patient oriented x3 and moves all extremities Psych: COMMON NORMALS: mental status grossly normal, Normal thought process present and cooperative THOUGHT PROCESS: Normal thought process present Skin: COMMON NORMALS: no rashes or lesions noted and no wounds GENERAL SKIN EXAM: no rashes or lesions noted Course Vital Signs: Vital signs: Vital Signs Temperature 98.0 F 03/21/25 12:24 Pulse Rate 75 03/21/25 13:17 Respiratory Rate 17 03/21/25 12:54 Blood Pressure 120/78 03/21/25 13:17 Pulse Oximetry 91 03/21/25 12:53 Oxygen Delivery Me thod Nasal Cannula 03/21/25 12:53 Oxygen Flow Rate 2 03/21/25 12:53 MDM - Neuro Symptoms/Deficit Medical Decision Making Patient presents here with a CVA patient did receive TNKase here was seen by Dr. Hendrix will admit at this time. Medical Records I reviewed the patient's medical records. Lab Data I reviewed the patient's lab results. 03/21/25 12:40 03/21/25 12:[address] 03/21/25 11:57 IMPRESSION: 1. No evidence of intracranial hemorrhage or mass effect. 2. Previously described numerous aneurysms are similar in appearance. Notified Lakeshia Paula MD at 03/21/2025 12:34 PM. Head/Neck CTA 03/21/25 12:10 IMPRESSION: 1. No significant cervical ICA stenosis. Both ICAs are patent to the skull base. 2. 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 3. Codominant and patent vertebral arteries bilaterally with dolichoectatic vertebrobasilar system. Basilar artery is patent. 4. No high-grade proximal flow-limiting stenosis. Moderate intracranial atheromatous disease with areas of segmental stenosis involving the SHRINK PIT OPERATOR territory bilaterally and second and third order MCA territory branches Laboratory Results WBC 6.83 10^3/uL (3.29-11.43) 03/21/25 12:40 RBC 5.22 10^6/uL (3.85-5.65) 03/21/25 12:40 Hgb 15.40 g/dL (11.27-16.99) 03/21/25 12:40 Hct 46.4 % (37-53) 03/21/25 12:40 MCV 88.9 fl (82-101) 03/21/25 12:40 MCH 29.5 pg (27-33) 03/21/25 12:40 MCHC 33.2 g/dL (30-55) 03/21/25 12:40 RDW 13.5 % (12.1-15.1) 03/21/25 12:40 Plt Count 156 10^3/cmm (157-399) L 03/21/25 12:40 MPV 9.5 fL (7.4-10.4) 03/21/25 12:40 Neut % (Auto) 85.8 % 03/21/25 12:40 Lymph % (Auto) 10.0 % 03/21/25 12:40 [place] % (Auto) 3.2 % 03/21/25 12:40 Eos % (Auto) 0.1 % 03/21/25 12:40 Baso % (Auto) 0.3 % 03/21/25 12:40 Neut # (Auto) 5.86 10^3/uL (1.8-7.7) 03/21/25 12:40 Lymph # (Auto) 0.7 10^3/uL (0.8-4.8) L 03/21/25 12:40 [place] # (Auto) 0.2 10^3/uL (0.2-0.9) 03/21/25 12:40 Eos # (Auto) 0.0 10^3/uL (0.0-0.8) 03/21/25 12:40 Baso # (Auto) 0.0 10^3/uL (0.0-0.1) 03/21/25 12:40 Nucleated RBC % (auto) 0 % 03/21/25 12:40 Nucleated RBCs # 0.0 /100WBC 03/21/25 12:40 Sodium 135 mmol/L (136-145) L 03/21/25 12:40 Potassium 3.9 mmol/L (3.5-5.1) 03/21/25 12:40 Chloride 103 mmol/L (98-107) 03/21/25 12:40 Carbon Dioxide 22 mmol/L (22-29) 03/21/25 12:40 Anion Gap 13.9 (5-19) 03/21/25 12:40 BUN 14 mg/dL (8-23) 03/21/25 12:40 Creatinine 0.9 mg/dL (0.7-1.2) 03/21/25 12:40 GFR Calculation Not Reportable 03/21/25 12:40 Glucose 141 mg/dL (65-115) H 03/21/25 12:40 POC Glucose 156 mg/dL (70-110) H 03/21/25 12:00 Calculated Osmolality 283 mOsm/kg (285-295) L 03/21/25 12:40 Calcium 8.4 mg/dL (8.5-10.5) L 03/21/25 12:40 Total Bilirubin 0.5 mg/dL (0.15-1.2) 03/21/25 12:40 AST 9 U/L (0-40) 03/21/25 12:40 ALT 7 U/L (0-41) 03/21/25 12:40 Alkaline Phosphatase 80 U/L (40-130) 03/21/25 12:40 Total Protein 5.9 g/dL (6.6-8.7) L 03/21/25 12:40 Albumin 3.5 g/dL (3.5-5.2) 03/21/25 12:40 Globulin 2.4 g/dL (1.3-4.6) 03/21/25 12:40 No radiology studies performed this visit Discharge Plan Discharge Patient Disposition: Admitted As Inpatient Clinical Impression: Cerebrovascular accident Condition: Stable Coding Level of Care Code ED Jumpbasting Machine Operator for Matt Rocha
[2025-03-21] MEDS: iohexol 350 mg/mL 500 mL Btl (per mL) IV (12:34)
[2025-03-21] MEDS: tenecteplase 50mg Kit (STROKE) 25 MG IVP (12:45)
[2025-03-21 12:49] LABS: Basophils % 0.3 %; Eosinophils % 0.1 %; Hematocrit 46.4 % (37-53); Lymphocytes # 0.7 10^3/uL (0.8-4.8); Mean Corpuscular HGB Conc 33.2 g/dL (30-55); Mean Corpuscular Hemoglobin 29.5 pg (27-33); Mean Corpuscular Volume 88.9 fl (82-101); Mean Platelet Volume 9.5 fL (7.4-10.4); Monocytes # 0.2 10^3/uL (0.2-0.9); Monocytes % 3.2 %; Neutrophils # 5.86 10^3/uL (1.8-7.7); Neutrophils % 85.8 %; Nucleated Red Blood Cells % 0 %; Platelet Count 156 10^3/cmm (157-399); Red Blood Count 5.22 10^6/uL (3.85-5.65); Red Cell Distribution Width 13.5 % (12.1-15.1); White Blood Count 6.83 10^3/uL (3.29-11.43)
--- NOTE | 2025-03-21 12:56 | ECG_ITS ---
[facility] Test Date: 2025-03-21 Pat Name: Lupillo Silveira Department: Room: Gender: Male Machine Preservative Filler: : 1945 Requested By: Lakeshia Paula Order Number: [id number] Hugo MD: Jaylyn Chase M.D. Measurements Intervals [place] Rate: 75 P: 0 GA: 0 QRS: -77 QRSD: 186 T: 61 QT: 432 QTc: 482 Interpretive Statements ELECTRONIC VENTRICULAR PACEMAKER ABNORMAL RHYTHM ECG Compared to ECG 06/29/2024 18:29:27 No significant changes Electronically Signed On 03-23-2025 06:16:47 CDT by Jaylyn Chase M.D. [email or web address]
[2025-03-21 13:02] LABS: Alanine Aminotransferase 7 U/L (0-41); Albumin Level 3.5 g/dL (3.5-5.2); Alkaline Phosphatase 80 U/L (40-130); Anion Gap 13.9 (5-19); Aspartate Amino Transferase 9 U/L (0-40); Blood Urea Nitrogen 14 mg/dL (8-23); Calcium 8.4 mg/dL (8.5-10.5); Carbon Dioxide 22 mmol/L (22-29); Chloride 103 mmol/L (98-107); Creatinine Clr Calc Pharmacy 84.4479; Globulin 2.4 g/dL (1.3-4.6); Glucose 141 mg/dL (65-115); Osmolality Calculated 283 mOsm/kg (285-295); Potassium 3.9 mmol/L (3.5-5.1); Sodium 135 mmol/L (136-145); Total Bilirubin 0.5 mg/dL (0.15-1.2); Total Protein 5.9 g/dL (6.6-8.7)
--- NOTE | 2025-03-21 13:18 | PC.PHAR ---
[facility] 03/21/25 1:20pm
[2025-03-21 13:48] LABS: Partial Thromboplastin Time 26.7 SECONDS (23.9-36.7)
--- NOTE | 2025-03-21 16:07 | PM.HP ---
Providers/Chief Complaint Admitting Physician: Misty Dennis MD Primary Care Provider: Gregoria Blake APRN Chief Complaint: headache, dizziness History of Present Illness uLpillo Silveira is a 79 year old male with past medical history of diabetes mellitus type 2, CHF, asthma, COPD, oxygen with sleep apnea, atrial fibrillation, prostate cancer, hayfever, hypertension, GERD presented to the hospital today for complaint of headache that started this morning when he was sitting and reading a book. He states he became very dizzy and was not able to walk straight. Also complained of some slurred speech and blurry vision. He presented to the ER via personal transport. His family brought him in. In the ER he still had mild slurred speech and ataxia however headache did improve. He does have a history of intracranial aneurysm. Denies chest pain nausea vomiting. He was brought in on a wheelchair. Stroke alert was called. Neurology evaluated the patient and patient was given TNKase. Dr. Hendrix evaluated the patient at bedside. We will currently admit to ICU for post TNKase care. Uses BiPAP at night and has a history of obstructive sleep apnea. Medications/Allergies Home Medications ?Medication ?Instructions ?Recorded ?Confirmed ?Last Taken ?Type cholecalciferol (vitamin D3) 50 50 mcg PO QPM 12/11/19 03/21/25 03/20/25 History mcg (2,000 unit) capsule (Vitamin D3) levothyroxine 137 mcg tablet 137 mcg PO QAM 12/11/19 03/21/25 03/21/25 History (Synthroid) modafinil 200 mg tablet (Provigil) 200 mg PO QAM 12/11/19 03/21/25 03/21/25 History tamsulosin 0.4 mg capsule 0.4 mg PO QPM 07/17/20 03/21/25 03/20/25 History albuterol sulfate 2.5 mg/3 mL 2.5 mg continuous nebulization QID 12/12/20 03/21/25 08/30/23 History (0.083 %) solution for nebulization PRN shortness of breath or wheezing aspirin 81 mg tablet,delayed 81 mg PO QPM 12/27/20 03/21/25 03/20/25 History release (Adult Aspirin Regimen) Bone Growth Stimulator E0748 #1 ea 05/05/22 03/21/25 Unknown Rx pantoprazole 40 mg tablet,delayed 40 mg PO QPM 09/01/23 03/21/25 03/20/25 History release acetaminophen 500 mg tablet 1,000 mg PO Q6H PRN Pain 10/31/23 03/21/25 Unknown History carvedilol 12.5 mg tablet 6.25 mg PO BID 10/31/23 03/21/25 03/21/25 History simvastatin 20 mg tablet 20 mg PO QPM 10/31/23 03/21/25 03/20/25 History budesonide 160 mcg-glycopyr 9 2 inh inhalation BID #10.7 grams 12/04/23 03/21/25 03/21/25 Rx mcg-formot 4.8 mcg/actuation HFA inhaler (Breztri Aerosphere) finasteride 5 mg tablet 5 mg PO QAM 07/04/24 03/21/25 03/21/25 History folic acid 1 mg tablet 1 mg PO QAM 07/04/24 03/21/25 03/21/25 History spironolactone 25 mg tablet 12.5 mg PO QAM 07/04/24 03/21/25 03/21/25 History albuterol sulfate 90 mcg/actuation 2 puff inhalation QID PRN 03/21/25 03/21/25 Unknown History aerosol inhaler Shortness Of Breath cetirizine 10 mg tablet (Zyrtec) 10 mg PO QPM 03/21/25 03/21/25 03/20/25 History colchicine 0.6 mg tablet 0.6 mg PO DAILY PRN gout flare 03/21/25 03/21/25 Unknown History empagliflozin 25 mg tablet 25 mg PO QAM 03/21/25 03/21/25 03/21/25 History (Jardiance) montelukast 10 mg tablet 10 mg PO QAM 03/21/25 03/21/25 03/21/25 History (Singulair) prednisone 10 mg tablet See Rx Instructions .Route .COMPLEX 03/21/25 03/21/25 03/21/25 History ropinirole 0.25 mg tablet 0.25 mg PO QPM 03/21/25 03/21/25 03/20/25 History Allergies Allergy/AdvReac Type Severity Reaction Status Date / Time apixaban (From Eliquis) Allergy Severe bleeding Verified 01/02/25 09:37 ibuprofen (From Motrin) Allergy renal Verified 01/02/25 09:37 failure rivaroxaban (From Xarelto) Allergy bleeding Verified 01/02/25 09:37 tolmetin (From Tolectin) Allergy ALGY-Rash Verified 01/02/25 09:37 PFSH Acute PFSH: Medical History Diverticulosis large intestine w/o perforation or abscess w/bleeding History of colon polyps Dupuytren's disease of palm of left hand Trigger finger, right middle finger Trigger finger, left ring finger Osteoarthritis of hands, bilateral Congestive heart failure EF of 50% on echocardiogram 07/2024. H/O diabetic nephropathy History of left heart catheterization (LHC) 12/2020 60 to 70% diffuse disease in the first diagonal branch of the left anterior descending artery. He had around 40 to 50% lesions in the distal left and descending artery. Minimal intimal irregularities in the RCA and the left circumflex artery. Based on angiographic findings, he was treated medically. Asthma Atherosclerotic heart disease of [place] coronary artery without angina pectoris Abnormal cardiovascular stress test Diabetes mellitus Primary osteoarthritis of knees, bilateral SHER (obstructive sleep apnea) COVID-19 Right fibular fracture Spontaneous hemorrhage This patient bled into the right calf muscle and had hematuria with Xarelto Shortness of breath on exertion Dyslipidemia Cerebral arterial aneurysm Intermittent atrial fibrillation Atrial fibrillation status post cardioversion Narcolepsy Peripheral arterial disease Hypertension Benign prostatic hyperplasia Hypothyroidism Surgical History History of colonoscopy 5 years ago History of esophagogastroduodenoscopy 30 years ago History of umbilical hernia repair (~12/2021) S/P spinal fusion H/O cardiac radiofrequency ablation x 2 Pacemaker Presence of Watchman left atrial appendage closure device History of cataract surgery Bilateral History of knee surgery Bilateral arthroscopy (multiple on each side) S/P rotator cuff repair Left Family History Other CAD (coronary artery disease) Cancer Hypertension Stroke Social History Smoking and tobacco/nicotine status: never used tobacco/nicotine Second hand smoke exposure: Yes Alcohol intake: never Substance/Drug Use: never Lives independently: Yes Household members: spouse and children Housing: House Marital status: service: Yes 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 Does report a headache. No neck stiffness present. HEENT: Normocephalic, atraumatic, EOMI, breathing 2 L nasal cannula. Cardio: Regular rate rhythm, normal S1-S2, Respiratory: Clear to auscultation bilaterally no wheezes no rhonchi. GI: Abdomen soft, nontender, nondistended, bowel sounds + Extremities: No edema bilateral lower extremities Neuro: Grossly nonfocal, very mild slurred speech noticed. Gait not tested. Data 03/21/25 12:40 03/21/25 12:40 A&P Assessment and plan (1) Hypertension: (2) Atherosclerotic heart disease of [place] coronary artery without angina pectoris: (3) Pacemaker: (4) Intermittent atrial fibrillation: (5) Presence of Watchman left atrial appendage closure device: (6) Dyslipidemia: (7) Diabetes mellitus: (8) Hypothyroidism: (9) Cerebral arterial aneurysm: (10) Cerebrovascular accident: Plan #Acute stroke status post TNKase #Headache most likely secondary to above #History of intracranial segmental stenosis involving CUSTOMER SALES ADVISOR territory and third order MCA territory branches. #History of left MCA trifurcation aneurysm # Type II diabetes mellitus type 2 #CHF, compensated #History of asthma #History of COPD #History of obstructive sleep apnea, uses BiPAP at home #Atrial fibrillation status post ablation, Watchman device #Hypertension #GERD - Discussed with Dr. Hendrix. Will give 500 Depakote IV x 1 for patient's headache. This may be stroke related. ? Patient has been evaluated by neurology. ? Admit for post TNKase care. ? Check CT head after 24 hours to rule out intracranial hemorrhage -Placed on aspirin Plavix which are to be started after 24 hours ? Allow permissive hypertension ? Hold carvedilol, spironolactone, tamsulosin ? Check nursing dysphagia screen ? Check lipid panel, hemoglobin A1c ? No blood draws for 24 hours ? Continue oxygen supplementation ? Order BiPAP ? May check blood sugar via fingerstick. ? Await further neurology recommendations - Patient states he does have a history of dysphagia from prior and had a modified barium swallow 5 years ago. The only thing he cannot eat is rice otherwise does not have any trouble swallowing. He did have a drink in the ER and was swallowing okay. ? Full code Due to prophylaxis: Mechanical. PDMP PDMP Reviewed: Not Reviewed Attestations Medical Necessity Statement*: Post TNKase care, greater than 2 midnight stay. Diagnoses Primary hypertension I10 Hypertension type: primary hypertension Atherosclerosis of [place] coronary artery of [place] heart without angina pectoris I25.10 [place] vs. transplanted heart: [place] heart Pacemaker Z95.0 Intermittent atrial fibrillation I48.0 Presence of Watchman left atrial appendage closure device Z95.818 Dyslipidemia E78.5 Type 2 diabetes mellitus with hyperglycemia, without long-term current use of insulin E11.65 Diabetes mellitus type: type 2 Diabetes mellitus chcf insulin use: without chcf use Diabetes mellitus complication status: with hyperglycemia Acquired hypothyroidism E03.9 Hypothyroidism type: acquired Cerebral arterial aneurysm I67.1 Cerebrovascular accident I63.9
--- NOTE | 2025-03-21 16:16 | USCV_ITS ---
Lupillo Silveira Age: 79 Gender: M : 1945 Exam Date: 03/21/2025 19:56 Ordering Phys: Misty Dennis MD Technologist: TATY Exam Location: [facility] [place] Indication: acute stroke, hx DM2, CHF, asthma, COPD, O2- dependent, Atrial fibrillation, HTN BP: 127 / 68 HR: 74 Rhythm: Paced rhythm with Atrial fibrillation Technical Quality: Adequate MEASUREMENTS (Male / Female) Normal Values 2D ECHO LV Diastolic Diameter PLAX 3.3 cm 4.2 - 5.9 / 3.9 - 5.3 cm IVS Diastolic Thickness 1.5 cm 0.6 - 1.0 / 0.6 - 0.9 cm IVS Systolic Thickness 1.7 cm LVPW Diastolic Thickness 1.7 cm 0.6 - 1.0 / 0.6 - 0.9 cm LVPW Systolic Thickness 1.5 cm LVOT Diameter 1.9 cm LV Ejection Fraction 2D Teich 37.1 % LV Ejection Fraction MOD 4C 55.5 % LV Ejection Fraction MOD 2C 56.2 % LV Ejection Fraction 2C AL 56.4 % LA Diameter 5.3 cm LA Sys Volume AL 141.0 cm cubed LA Sys Volume Index AL 55.2 cm cubed/m squared Aorta at Sinotubular Diameter 2.8 cm IVC Diameter 2.2 cm DOPPLER AV Peak Velocity 105.0 cm/s LVOT Peak Velocity 92.0 cm/s AV Area Cont Eq vti 2.5 cm squared AV Area Cont Eq pk 2.4 cm squared MV Peak Velocity 72.0 cm/s MV Area PHT 4.7 cm squared Mitral E to A Ratio 261.0 TR Peak Velocity 159.0 cm/s TR Peak Gradient 10.1 mmHg TV Peak E Velocity 41.0 cm/s PV Peak Velocity 76.0 cm/s FINDINGS Left Ventricle Diffuse hypokinesia left ventricular ejection fraction of around 45% (visual). Mild concentric left-ventricular hypertrophy. Right Ventricle The right ventricle is normal in size and function. Right Atrium Pacemaker wire in the right atrium.mildly increased right atrial size. Left Atrium Severely increased left atrial size. Severely increased left atrial volume 55.2 ml/m squared. Mitral Valve Mild-moderate mitral valve regurgitation. Thickened mitral valve. Aortic Valve Thickened aortic valve. Moderate eccentric aortic valve regurgitation. Tricuspid Valve Mild tricuspid valve regurgitation. Pulmonic Valve Pulmonic valve not well visualized. Pericardium No pericardial effusion. Aorta Normal aortic annulus size. IVC Normal IVC dimension with <50% respiratory change of the inferior vena cava. CONCLUSIONS Diffuse hypokinesia of the left ventricle with an ejection fraction of around 45%. Mild concentric left-ventricular hypertrophy. Severely increased left atrial size. Severely increased left atrial volume 55.2 ml/m squared. Mildly increased right atrial size. The right ventricle is normal in size and function. Pacemaker wire in the right atrial right ventricle Mild-moderate mitral valve regurgitation. Thickened mitral valve. Thickened aortic valve. Moderate eccentric aortic valve regurgitation. Mild tricuspid valve regurgitation. Pulmonary artery systolic pressure calculation is difficult because of the poor Doppler signal There is no pericardial effusion. There are no intracardiac masses. Compared to the study from 07/27/2024, there is significant increase in the size of the left atrium. Dr Jaylyn Chase MD FAC (Electronically Signed) Final Date: 21 March 2025 22:59 S
[2025-03-21] MEDS: pantoprazole DR 40 mg Tablet PO (18:05)
[2025-03-21] MEDS: cholecalciferol (vitamin D3) 1,000 unit Tablet 2000 UNIT PO (18:05)
[2025-03-21] MEDS: valproic acid inj 500 MG in sodium chloride 0.9% 50 ML 55 MG IV (18:05)
--- NOTE | 2025-03-21 18:10 | PC.NURSE ---
Patient evaluated by . said he swallowed fine. Called Dr Dennis and told her ST evaluated patient, patient refused consistent carb diet, requested regular diet. Dr. Dennis aware, Dr. Dennis wants periodically finger stick blood sugar tests to check sugar levels.
--- NOTE | 2025-03-21 18:25 | P.PNCC_ITS ---
Stroke Alert Activation ED Arrival Date: 03/21/25 ED Arrival Time: 11:55 ED Physican at Bedside: 11:57 Last Known Normal/at Baseline: 1-2 hours ago Other Last Known Well Infomation: He was at home with his when he called to her and complained of sudden onset of dizziness and slurred speech. His vision felt active like his eyes were bouncing. When he got here at 1157 he went straight to his CAT scan and I interviewed him there while they were starting an IV. At that time his speech was difficult to understand because of dysarthria and he seemed a little confused. I interviewed him again after he returned to ER and I completed an NIH stroke scale at that time. The patient and his both agree that his symptoms began abruptly with last known normal at 11 AM. He is very unsteady and has unilateral ataxia on the left side with intermittent variable ratchety eye movements and nystagmus, consistent with posterior circulation stroke. He has multiple brain aneurysms that have been known and followed for quite some time and agreement was that any treatment of those would be riskier than leaving them alone. 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 Very complex right middle cerebral artery aneurysm and large fusiform posterior circulation aneurysm involving the entire vertebrobasilar system. Because of the multiple lesions I asked the technician support association to go ahead with CT angiogram and went back to discuss with Dr. Paula and the patient's . By then the patient's daughter was also present and participated in the conversation. I stood the patient up and he was unsteady and normally walks without a walker or cane. After discussing risks and benefits of TNK that patient talked with his and daughter and made a decision in favor of treatment. Stroke Alert Activated by: triage NIH stroke score NIHSS: Level Of Consciousness - 1a: 0 Level Of Consciousness Questions - 1b: Both Correct Level Of Consciousness Commands - 1c: Both Correct Best Gaze - 2: Normal Visual Cheema - 3: No Visual Loss Facial Palsy - 4: Normal Motor Arm Right - 5: No Drift Motor Arm Left - 5: No Drift Motor Leg Right - 6: No Drift Motor Leg Left - 6: No Drift Limb Ataxia - 7: Present In Two Limbs Sensory - 8: Normal Best Language - 9: No Aphasia Dysarthia - 10: Mild/Moderate Dysarthia Extinction And Inattention - 11: 0 Score: Total Score: 3 Stroke Alert Data/Treatment CT Impression: CT head 1234 FINDINGS: No evidence of intracranial hemorrhage or mass effect. Ventricular system and basal cisterns are patent. Moderate small vessel changes with moderate parenchymal volume loss. Stable appearing fusiform aneurysmal dilatation of the RIGHT MCA. Large LEFT MCA bifurcation aneurysm measuring 1.7 cm. Fusiform aneurysmal anterior communicating artery. Intracranial vascular calcification. Dolichoectatic basilar artery. Fusiform dilatation RIGHT ICA terminus. Impression: 1. No evidence of intracranial hemorrha ge or mass effect. 2. Previously described numerous aneury sms are similar in appearance. Notified Lakeshia Paula MD at 03/21/2025 12:[address] angiogram 1. No significant cervical ICA stenosis . Both ICAs are patent to the skull base. 2. 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 3. Codominant and patent vertebral debbie meera bilaterally with dolichoectatic vertebrobasilar system. Basilar artery is patent. 4. No high-grade proximal flow-limiting stenosis. Moderate intracranial atheromatous disease with areas of segmental stenosis involving the PRIMARY CLASS TEACHER territory bilaterally and second and third order MCA territory branches Dictated By: Lb Soni MD Stroke Risk Factors: atrial fibrillation, coronary artery disease, hyperlipidemia, hypertension, previous OR, obesity and diabetes mellitus tPA Started Time: tPA Started - Time: 12:45 tPA Admin Prior to Arrival: No Patient & Family Educated on: Cause of Stroke, Treament Plan and tPA Risks/Benefits Other Patient & Family Education: Specific risks related to his multiple aneurysms unknown. Standardized Stroke Orders Used: Yes Other Information: I talked with Dr. Dennis about treating his headache conservatively with Depacon IV. The patient is not prone to have migraine as I talked with the family about that and the headache is related to his stroke. Critical Care Time Critical Care Time: 30 - 74 mins A&P Assessment and plan (1) Posterior circulation stroke: He presents with sudden onset of dysarthria, dizziness and ataxia. His exam showed left-sided ataxia more than right and midline instability. He had diplopia. We all agreed that it was better to treat with TNK even though he has multiple stable intracerebral aneurysms, 1 giant aneurysm in the left middle cerebral artery and several fusiform aneurysms in right middle cerebral and posterior circulation. Plan on using standard antiplatelet therapy starting within 24 hours of TNK and he is probably already on lipid-lowering therapy but we will make sure that if not, he is get started on a atorvastatin if he tolerates it. I do not see that on his allergy list. By the way, he says that he previously had severe bleeding with Xarelto and Eliquis and so of course he will be at higher risk of bleeding. Although his stroke scale score was low, his gait was significantly impaired. PDMP PDMP Reviewed: Last Reviewed 03/21/25 18:39 by Alethea Hendrix MD Coding Level of Care Code Acute Code for [facility] Fwd Diagnoses Posterior circulation stroke I63.50
[2025-03-21 18:28] LABS: Bilirubin Urine Negative (Negative); Blood Urine Negative (Negative); Glucose Urine UA 3+ (Normal); Ketones Urine Negative (Negative); Leukocyte Esterase Urine Negative (Negative); Nitrate Urine Negative (Negative); Protein Urine Negative (Negative); Urine Appearance Clear (CLEAR); Urine Color Yellow (Yellow); pH Urine 6.5 (5-7)
[2025-03-21 18:33] LABS: Add Urine Microscopic? YES; Bacteria Urine None Seen /hpf; Hyaline Casts Urine 0-4 /lpf; RBC Urine 0-2 /hpf (0-2); Squamous Epithelial Cell Urine 0-5 /hpf (0-5); WBC Urine 0-5 /hpf (0-5)
[2025-03-21 18:37] LABS: Amphetamines Screen Urine Negative (Negative); Barbiturates Screen Urine Negative (Negative); Benzodiazepines Screen Urine Negative (Negative); Cocaine Screen Urine Negative (Negative); Opiate Screen Urine Negative (Negative); PCP Screen Urine Negative (Negative); THC Screen Urine Positive (Negative)
[2025-03-21 18:44] LABS: Specific Gravity, Urine 1.057 (1.005-1.030)
[2025-03-21] MEDS: atorvastatin 40 mg Tablet 20 MG PO (21:18)
[2025-03-21 21:32] LABS: Glucose Point of Care 152 mg/dL (70-110)
[2025-03-22] VITALS (109 sets, daily range): BP systolic 91–158; BP diastolic 52–109; PULSE 0–83; RESP 9–35; TEMP 36; O2SAT 91–100
[2025-03-22 03:19] LABS: Basophils % 0.2 %; Eosinophils % 0.5 %; Hematocrit 47.5 % (37-53); Lymphocytes # 1.7 10^3/uL (0.8-4.8); Lymphocytes % 18.7 %; Mean Corpuscular HGB Conc 33.3 g/dL (30-55); Mean Corpuscular Hemoglobin 29.6 pg (27-33); Mean Platelet Volume 9.6 fL (7.4-10.4); Monocytes # 0.6 10^3/uL (0.2-0.9); Monocytes % 7.2 %; Neutrophils # 6.45 10^3/uL (1.8-7.7); Neutrophils % 72.9 %; Nucleated Red Blood Cells % 0 %; Platelet Count 160 10^3/cmm (157-399); Red Blood Count 5.34 10^6/uL (3.85-5.65); Red Cell Distribution Width 13.6 % (12.1-15.1); White Blood Count 8.84 10^3/uL (3.29-11.43)
[2025-03-22 03:22] LABS: Glucose Point of Care 126 mg/dL (70-110)
[2025-03-22 03:40] LABS: Chol HDL Ratio 4.06 mg/dL (1.0-5.00); Cholesterol 142 mg/dL (0-200); HDL Cholesterol 35 mg/dL (60-100); LDL Cholesterol Calculated 83 mg/dL (50-129); LDL HDL Ratio 2.37 RATIO (0.00-3.22); Triglycerides 122 mg/dL (0-150)
[2025-03-22 03:42] LABS: Estmated Average Glucose 131; Hemoglobin A1C 6.2 % (4.0-6.0)
[2025-03-22 03:46] LABS: Alanine Aminotransferase 8 U/L (0-41); Albumin Level 3.6 g/dL (3.5-5.2); Alkaline Phosphatase 92 U/L (40-130); Anion Gap 14.1 (5-19); Aspartate Amino Transferase 10 U/L (0-40); Blood Urea Nitrogen 12 mg/dL (8-23); Calcium 8.9 mg/dL (8.5-10.5); Carbon Dioxide 23 mmol/L (22-29); Chloride 105 mmol/L (98-107); Globulin 2.8 g/dL (1.3-4.6); Glucose 116 mg/dL (65-115); Osmolality Calculated 287 mOsm/kg (285-295); Potassium 4.1 mmol/L (3.5-5.1); Sodium 138 mmol/L (136-145); Total Bilirubin 0.4 mg/dL (0.15-1.2); Total Protein 6.4 g/dL (6.6-8.7)
[2025-03-22] MEDS: levothyroxine 137 mcg Tablet PO (05:37)
--- NOTE | 2025-03-22 09:31 | PC.NURSE ---
care team coordinator scheduler rounds @ 9800- gave patient stroke education book
[2025-03-22] MEDS: folic acid 1 mg Tablet PO (09:36)
--- NOTE | 2025-03-22 10:39 | PC.PHAR ---
Pt states he is not taking Ferrous sulfate 325mg daily or flonase 50mcg 2 sprays daily. They are not on pt's home med list but [facility]. Pt also has Ropinerole 1mg [facility] but has only the 0.25mg on his current med list. I did not change it due to the 3 women in the room agreed the pt is taking 0.25mg.
--- NOTE | 2025-03-22 11:02 | PM.PN ---
Subjective Subjective: seen this morning Sitting up in recliner appearing comfortable. Speech more clear compared to yesterday. States his headache has improved however still present in the forehead area. He is requesting for his home Jardiance. Hemoglobin A1c 6.2. Able to swallow okay. No dysphagia noted. Going to be working with physical therapy today. Repeat head CT post TNKase is scheduled for 1:00. Patient is on room air now. Vitals/I&O/Wt Last Vital Signs Temp 96.8 F L 03/22/25 10:32 Pulse 75 03/22/25 10:45 Resp 19 H 03/22/25 10:45 BP 115/72 03/22/25 10:45 Pulse Ox 96 03/22/25 10:45 O2 Del Method Room Air 03/22/25 09:27 O2 Flow Rate 2 03/21/25 17:27 03/21/25 03/22/25 03/22/25 22:59 06:59 14:59 Intake Total 480 / 480 480 / 960 240 / 240 Output Total 950 / 950 350 / 1300 290 / 290 Balance -470 / -470 130 / -340 -50 / -50 Weight last 48 hrs Weight 139.706 kg Weight 141 kg Weight 129.274 kg Physical Exam Narrative: General: Alert oriented x3, patient sitting up in in recliner HEENT: Normocephalic, atraumatic, EOMI, on room air. Cardio: Regular rate rhythm, normal S1-S2, Respiratory: Clear to auscultation bilaterally no wheezes no rhonchi. GI: Abdomen soft, nontender, nondistended, bowel sounds + Extremities: No edema bilateral lower extremities Neuro: Grossly nonfocal, slurred speech improving. Gait not tested. Data 03/22/25 02:50 03/22/25 02:50 A&P Assessment and plan (1) Hypertension: (2) Atherosclerotic heart disease of [place] coronary artery without angina pectoris: (3) Pacemaker: (4) Intermittent atrial fibrillation: (5) Presence of Watchman left atrial appendage closure device: (6) Dyslipidemia: (7) Diabetes mellitus: (8) Hypothyroidism: (9) Cerebral arterial aneurysm: (10) Cerebrovascular accident: Plan #Acute stroke status post TNKase #Headache most likely secondary to above #History of intracranial segmental stenosis involving HISTOLOGY SUPERVISOR territory and third order MCA territory branches. #History of left MCA trifurcation aneurysm # Type II diabetes mellitus type 2 #CHF, compensated #History of asthma #History of COPD #History of obstructive sleep apnea, uses BiPAP at home #Atrial fibrillation status post ablation, Watchman device #Hypertension #GERD - Discussed with Dr. Bosch. Will give 500 Depakote IV x 1 for patient's headache. This may be stroke related. ? Patient has been evaluated by neurology. ? Admit for post TNKase care. ? Check CT head after 24 hours to rule out intracranial hemorrhage -Placed on aspirin Plavix which are to be started after 24 hours ? Allow permissive hypertension ? Hold carvedilol, spironolactone, tamsulosin ? Check nursing dysphagia screen ? Check lipid panel, hemoglobin A1c ? No blood draws for 24 hours ? Continue oxygen supplementation ? Order BiPAP ? May check blood sugar via fingerstick. ? Await further neurology recommendations - Patient states he does have a history of dysphagia from prior and had a modified barium swallow 5 years ago. The only thing he cannot eat is rice otherwise does not have any trouble swallowing. He did have a drink in the ER and was swallowing okay. ? Full code Due to prophylaxis: Mechanical. 03/22/2025 hba1c 6.2 echo reviewed with pt, ef 45% with enlarged RA cotinue asp, plavix pt states he cannot tolerate AC due to hx of hemorrhage still has a headache pt/ot today repeat head ct at 1 pm post tnkase protocol if continues to do well by evening, may consider dc pending clinical status will discuss with dr. bosch neuro: mainly nonfocal, slurred speech improving PDMP PDMP Reviewed: Not Reviewed Attestations Medical Necessity Statement*: Post TNKase care, greater than 2 midnight stay. Diagnoses Primary hypertension I10 Hypertension type: primary hypertension Atherosclerosis of [place] coronary artery of [place] heart without angina pectoris I25.10 [place] vs. transplanted heart: [place] heart Pacemaker Z95.0 Intermittent atrial fibrillation I48.0 Presence of Watchman left atrial appendage closure device Z95.818 Dyslipidemia E78.5 Type 2 diabetes mellitus with hyperglycemia, without long-term current use of insulin E11.65 Diabetes mellitus type: type 2 Diabetes mellitus mcc insulin use: without terminal superintendent use Diabetes mellitus complication status: with hyperglycemia Acquired hypothyroidism E03.9 Hypothyroidism type: acquired Cerebral arterial aneurysm I67.1 Cerebrovascular accident I63.9
--- NOTE | 2025-03-22 13:09 | P.PN_ITS ---
Subjective 2 Subjective: He had a bad headache but it went away with Depacon. He had consultation with neurosurgery about his multiple aneurysms and surgical treatment was not recommended. His last MRA was a couple of years ago. He was evaluated at [facility]. He is still a little unsteady so he needed his walker this morning. He walked with physical therapy. His repeat CT scan is scheduled for this afternoon. Vitals/I&O/Wt Last Vital Signs Temp 96.8 F L 03/22/25 10:32 Pulse 75 03/22/25 10:45 Resp 19 H 03/22/25 10:45 BP 115/72 03/22/25 10:45 Pulse Ox 96 03/22/25 10:45 O2 Del Method Room Air 03/22/25 09:27 O2 Flow Rate 2 03/21/25 17:27 03/21/25 03/22/25 03/22/25 22:59 06:59 14:59 Intake Total 480 / 480 480 / 960 240 / 240 Output Total 950 / 950 350 / 1300 290 / 290 Balance -470 / -470 130 / -340 -50 / -50 Weight last 48 hrs Weight 308 lb Weight 310 lb 13.628 oz Weight 285 lb Physical Exam 2 Narrative: I did not take him for a walk. His speech is more clear and fluent. He is more alert. Cranial nerves are intact. Motor exam reveals no drift. He moves all 4 extremities well. No ataxia on arm extension. Gait not tested. Data 03/22/25 02:50 03/22/25 02:50 A&P Assessment and plan (1) Posterior circulation stroke: Patient appears stable after having received TNK for posterior circulation stroke. Headache responded to Depacon. Scheduled for repeat CT this afternoon. If that is unchanged he should be able to go home tomorrow. He is cautious about antiplatelet therapy because he has had bleeding in the past for he agrees to take a full aspirin a day and double his atorvastatin. I will be glad to see him in the office. (2) Cerebral arterial aneurysm: PDMP PDMP Reviewed: Last Reviewed 03/21/25 18:39 by Alethea Hendrix MD Attestations 2 Medical Necessity Statement*: Acute stroke status post TNK Coding Level of Care Code Acute Code for [facility] F[facility] Diagnoses Posterior circulation stroke I63.50 Cerebral arterial aneurysm I67.1
--- NOTE | 2025-03-22 14:00 | CT_ITS ---
WS: [id number] CT HEAD TECHNIQUE: Noncontrast CT of the head obtained from the skullbase to the vertex. CLINICAL INFORMATION: acute stroke COMPARISON: 03/21/2025 DLP: 1121.[address] scans at [facility] use at least one of these dose optimization techniques: automated exposure control; mA and/or kV adjustment per patient size (includes targeted exams where dose is matched to clinical indication); or iterative reconstruction. FINDINGS: No evidence of intracranial hemorrhage or mass effect. Ventricular system and basal cisterns are patent. Moderate small vessel changes with moderate parenchymal volume loss. Vascular calcification. Stable appearing fusiform aneurysmal dilatation of the RIGHT MCA. Large LEFT MCA bifurcation aneurysm measuring 1.7 cm. Fusiform aneurysmal anterior communicating artery. Intracranial vascular calcification. Dolichoectatic basilar artery. Fusiform dilatation RIGHT ICA terminus. Polypoid soft tissue in the anterior nasal vault unchanged. Paranasal sinuses are otherwise well aerated. Mastoid air cells are well aerated. CT/CT head wo con* [id number] IMPRESSION: 1. No evidence of intracranial hemorrhage or mass effect. 2. No apparent change compared to previous. 3. No acute intracranial findings.
[2025-03-22] MEDS: predniSONE 20 mg Tablet 30 MG PO (15:01)
--- NOTE | 2025-03-22 17:02 | PM.DCS ---
Discharge Providers Date of Admission: 03/21/25 13:12 Date of Discharge: March 22, 2025 Attending Provider at Admission: Misty Dennis MD Attending Provider at Discharge: Misty Dennis MD Primary Care Provider: Gregoria Blake APRN Diagnoses at Discharge Discharge Diagnosis (1) Posterior circulation stroke: Status: Acute (2) Cerebral arterial aneurysm: Status: Chronic Reason for Visit Reason for Visit: headache, dizziness Hospital Course Hospital Course Patient presented to the hospital with posterior circulation stroke symptoms. He was given TNKase and admitted to the ICU. Post TNKase care was performed. Neurology also evaluated the patient at time of arrival to the ER and at that time decision was made to give TNKase. Patient symptoms are significantly improved. He was also able to walk with physical therapy. He will be discharged home in stable condition at this time. Will send home on aspirin. He will follow-up with neurology as an outpatient. Physical Exam Narrative: General: Alert oriented x3, patient sitting up in in recliner HEENT: Normocephalic, atraumatic, EOMI, on room air. Cardio: Regular rate rhythm, normal S1-S2, Respiratory: Clear to auscultation bilaterally no wheezes no rhonchi. GI: Abdomen soft, nontender, nondistended, bowel sounds + Extremities: No edema bilateral lower extremities Neuro: Grossly nonfocal, slurred speech improving. Gait not tested. Discharge Data Studies Completed and Pending Completed Studies During Hospitalization Category Date Time Status CT angio headneck* [id number] Stat Cat Scan 03/21/25 12:[address] head thrombolytic [id number] Stat Cat Scan 03/21/25 11:[address] head wo con* [id number] Routine Cat Scan 03/22/25 14:00 Completed CV. echo complete* [id number] Routine Ultrasound 03/21/25 16:16 Completed Radiology Impressions Head/Neck CTA 03/21/25 12:10 IMPRESSION: 1. No significant cervical ICA stenosis. Both ICAs are patent to the skull base. 2. 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 3. Codominant and patent vertebral arteries bilaterally with dolichoectatic vertebrobasilar system. Basilar artery is patent. 4. No high-grade proximal flow-limiting stenosis. Moderate intracranial atheromatous disease with areas of segmental stenosis involving the GAS METER INSTALLER HELPER territory bilaterally and second and third order MCA territory branches Head CT 03/22/25 14:00 IMPRESSION: 1. No evidence of intracranial hemorrhage or mass effect. 2. No apparent change compared to previous. 3. No acute intracranial findings. Laboratory Results WBC 8.84 10^3/uL (3.29-11.43) 03/22/25 02:50 RBC 5.34 10^6/uL (3.85-5.65) 03/22/25 02:50 Hgb 15.80 g/dL (11.27-16.99) 03/22/25 02:50 Hct 47.5 % (37-53) 03/22/25 02:50 MCV 89.0 fl (82-101) 03/22/25 02:50 MCH 29.6 pg (27-33) 03/22/25 02:50 MCHC 33.3 g/dL (30-55) 03/22/25 02:50 RDW 13.6 % (12.1-15.1) 03/22/25 02:50 Plt Count 160 10^3/cmm (157-399) 03/22/25 02:50 MPV 9.6 fL (7.4-10.4) 03/22/25 02:50 Neut % (Auto) 72.9 % 03/22/25 02:50 Lymph % (Auto) 18.7 % 03/22/25 02:50 [place] % (Auto) 7.2 % 03/22/25 02:50 Eos % (Auto) 0.5 % 03/22/25 02:50 Baso % (Auto) 0.2 % 03/22/25 02:50 Neut # (Auto) 6.45 10^3/uL (1.8-7.7) 03/22/25 02:50 Lymph # (Auto) 1.7 10^3/uL (0.8-4.8) 03/22/25 02:50 [place] # (Auto) 0.6 10^3/uL (0.2-0.9) 03/22/25 02:50 Eos # (Auto) 0.0 10^3/uL (0.0-0.8) 03/22/25 02:50 Baso # (Auto) 0.0 10^3/uL (0.0-0.1) 03/22/25 02:50 Nucleated RBC % (auto) 0 % 03/22/25 02:50 Nucleated RBCs # 0.0 /100WBC 03/22/25 02:50 PT 14.90 SECONDS (12.1-14.9) 03/21/25 12:40 INR 1.10 (0.8-1.2) 03/21/25 12:40 APTT 26.7 SECONDS (23.9-36.7) 03/21/25 12:40 Sodium 138 mmol/L (136-145) 03/22/25 02:50 Potassium 4.1 mmol/L (3.5-5.1) 03/22/25 02:50 Chloride 105 mmol/L (98-107) 03/22/25 02:50 Carbon Dioxide 23 mmol/L (22-29) 03/22/25 02:50 Anion Gap 14.1 (5-19) 03/22/25 02:50 BUN 12 mg/dL (8-23) 03/22/25 02:50 Creatinine 0.9 mg/dL (0.7-1.2) 03/22/25 02:50 GFR Calculation Not Reportable 03/22/25 02:50 Glucose 116 mg/dL (65-115) H 03/22/25 02:50 POC Glucose 126 mg/dL (70-110) H 03/22/25 03:16 Estimat Average Glucose 131 03/22/25 02:50 Hemoglobin A1c 6.2 % (4.0-6.0) H 03/22/25 02:50 Calculated Osmolality 287 mOsm/kg (285-295) 03/22/25 02:50 Calcium 8.9 mg/dL (8.5-10.5) 03/22/25 02:50 Magnesium 2.0 mg/dL (1.7-2.3) 03/22/25 02:50 Total Bilirubin 0.4 mg/dL (0.15-1.2) 03/22/25 02:50 AST 10 U/L (0-40) 03/22/25 02:50 ALT 8 U/L (0-41) 03/22/25 02:50 Alkaline Phosphatase 92 U/L (40-130) 03/22/25 02:50 Total Protein 6.4 g/dL (6.6-8.7) L 03/22/25 02:50 Albumin 3.6 g/dL (3.5-5.2) 03/22/25 02:50 Globulin 2.8 g/dL (1.3-4.6) 03/22/25 02:50 Triglycerides 122 mg/dL (0-150) 03/22/25 02:50 Cholesterol 142 mg/dL (0-200) 03/22/25 02:50 LDL Cholesterol, Calc 83 mg/dL (50-129) 03/22/25 02:50 HDL Cholesterol 35 mg/dL (60-100) L 03/22/25 02:50 LDL/HDL Ratio 2.37 RATIO (0.00-3.22) 03/22/25 02:50 Cholesterol/HDL Ratio 4.06 mg/dL (1.0-5.00) 03/22/25 02:50 Urine Color Yellow (Yellow) 03/21/25 18:15 Urine Appearance Clear (CLEAR) 03/21/25 18:15 Urine pH 6.5 (5-7) 03/21/25 18:15 Ur Specific [place] 1.057 (1.005-1.030) H 03/21/25 18:15 Urine Protein Negative (Negative) 03/21/25 18:15 Urine Glucose (UA) 3+ (Normal) H 03/21/25 18:15 Urine Ketones Negative (Negative) 03/21/25 18:15 Urine Blood Negative (Negative) 03/21/25 18:15 Urine Nitrate Negative (Negative) 03/21/25 18:15 Urine Bilirubin Negative (Negative) 03/21/25 18:15 Urine Urobilinogen 1.0 mg/dL (Negative) 03/21/25 18:15 Ur Leukocyte Esterase Negative (Negative) 03/21/25 18:15 Urine RBC 0-2 /hpf (0-2) 03/21/25 18:15 Urine WBC 0-5 /hpf (0-5) 03/21/25 18:15 Ur Squamous Epith Cells 0-5 /hpf (0-5) 03/21/25 18:15 Amorphous Sediment Not Reportable 03/21/25 18:15 Urine Bacteria None seen /hpf (NONE) 03/21/25 18:15 Hyaline Casts 0-4 /lpf H 03/21/25 18:15 Urine Opiates Screen Negative ng/mL (Negative) 03/21/25 18:15 Ur Barbiturates Screen Negative ng/mL (Negative) 03/21/25 18:15 Ur Phencyclidine Scrn Negative ng/mL (Negative) 03/21/25 18:15 Ur Amphetamines Screen Negative ng/mL (Negative) 03/21/25 18:15 U Benzodiazepines Scrn Negative ng/mL (Negative) 03/21/25 18:15 Urine Cocaine Screen Negative ng/mL (Negative) 03/21/25 18:15 U Marijuana (THC) Screen Positive ng/mL (Negative) H 03/21/25 18:15 Vitals Last Vital Signs Temp 96.8 F L 03/22/25 10:32 Pulse 75 03/22/25 10:45 Resp 19 H 03/22/25 10:45 BP 115/72 03/22/25 10:45 Pulse Ox 96 03/22/25 10:45 O2 Del Method Room Air 03/22/25 09:27 O2 Flow Rate 2 03/21/25 17:27 Discharge Plan Discharge Patient Disposition: Home Condition: Stable Prescriptions: New aspirin 325 mg tablet 325 mg PO DAILY 30 Days Qty: 30 0RF Continued albuterol sulfate 2.5 mg /3 mL (0.083 %) solution for nebulization 2.5 mg continuous nebulization QID PRN (Reason: shortness of breath or wheezing) Michael Aerosphere 160-9-4.8 mcg/actuation HFA aerosol inhaler 2 inh inhalation BID Qty: 10.7 3RF folic acid 1 mg tablet 1 mg PO QAM finasteride 5 mg tablet 5 mg PO QAM (DME) Bone Growth Stimulator E0748 See Rx Instructions .Route .MEDSUPPLY Qty: 1 0RF Rx Instructions: As directed levothyroxine [Synthroid] 137 mcg Tablet 137 mcg PO QAM modafinil [Provigil] 200 mg Tablet See Rx Instructions .ROUTE .COMPLEX Rx Instructions: Take 1 tablet by mouth in the morning and 0.5 tablet at 2pm for daytime sleepiness. cholecalciferol (vitamin D3) [Vitamin D3] 50 mcg (2,000 unit) Capsule 50 mcg PO QPM tamsulosin 0.4 mg capsule 0.4 mg PO QPM pantoprazole 40 mg tablet,delayed release (DR/EC) 40 mg PO QPM cetirizine [Zyrtec] 10 mg Tablet 10 mg PO QPM ropinirole 0.25 mg Tablet 0.25 mg PO QPM albuterol sulfate 90 mcg/actuation Hfa Aerosol Inhaler 2 puff INHALATION QID PRN (Reason: Shortness Of Breath) montelukast [Singulair] 10 mg tablet 10 mg PO QAM Jardiance 25 mg tablet 25 mg PO QAM prednisone 10 mg Tablet See Rx Instructions .ROUTE .COMPLEX Rx Instructions: Take 3 tablets by mouth daily for 3 days, 2 tablets daily for 3 days, 1 tablet daily for 3 days, then stop. Held spironolactone 25 mg tablet 12.5 mg PO QAM Hold Instructions: see pcp carvedilol 12.5 mg tablet 6.25 mg PO BID Hold Instructions: hold till seen by cardiology Discontinued aspirin [Adult Aspirin Regimen] 81 mg tablet,delayed release (DR/EC) 81 mg PO QPM No Action atorvastatin [Lipitor] 40 mg tablet 40 mg PO DAILY Qty: 90 3RF Discharge Orders: Discharge Order (Routine); Ordered 03/22/25 Ordered By: Misty Dennis Referrals: Alethea Hendrix MD [Physician, Neurology] - 7-10 days Referral Note: We have notified your physician's clinic of the need for a follow-up appointment to be scheduled. If you have not heard from them within the next 2 business days, please call them directly. Gregoria Blake APRN [Primary Care Provider, Family Practice] - 4-7 days Referral Note: We have notified your physician's clinic of the need for a follow-up appointment to be scheduled. If you have not heard from them within the next 2 business days, please call them directly. Discharge Diet: Regular Discharge Activity: As per PT/OT instructions Patient Instructions: Ischemic Stroke (DC), Self Care Measures After a Stroke (DC), Stroke Prevention (DC), Opioid Safety, Stroke Stoplight Discharge Attestations Time Spent in Discharge Care*: greater than 30 min Quality Metrics Clinical Quality Measures [ No reported AMI, CVA or VTE this stay] Coding Level of Care Code Acute Code for [facility] Diagnoses Posterior circulation stroke I63.50 Cerebral arterial aneurysm I67.1
--- NOTE | 2025-04-05 15:37 | PC.NURSE ---
programming coordinator follow up phone call completed- patient states he is doing really well and has no needs at this time
== END 2025-03-22 17:57 | disposition home health service (06) | DRG 62 ==
LOC: ER 13:29 → ICU 13:33
PROVIDERS: Admitting Provider Internal Medicine; Emergency Provider Emergency Medicine; PCP Nurse Practitioner Family; Visit Provider Internal Medicine
DX: I63.50 Cerebral infarction due to unspecified occlusion or stenosis of unspecified cerebral artery (principal); Z68.42 Body mass index [BMI] 45.0-49.9, adult; R27.0 Ataxia, unspecified; R47.81 Slurred speech; H53.8 Other visual disturbances; Z79.51 Long term (current) use of inhaled steroids; Z79.84 Long term (current) use of oral hypoglycemic drugs; Z79.82 Long term (current) use of aspirin; K57.30 Diverticulosis of large intestine without perforation or abscess without bleeding; Z86.018 Personal history of other benign neoplasm; M72.0 Palmar fascial fibromatosis [Dupuytren]; M15.9 Polyosteoarthritis, unspecified; I11.0 Hypertensive heart disease with heart failure; I50.9 Heart failure, unspecified; E11.22 Type 2 diabetes mellitus with diabetic chronic kidney disease; N18.9 Chronic kidney disease, unspecified; E11.51 Type 2 diabetes mellitus with diabetic peripheral angiopathy without gangrene; J45.909 Unspecified asthma, uncomplicated; Z99.89 Dependence on other enabling machines and devices; K21.9 Gastro-esophageal reflux disease without esophagitis; Z85.46 Personal history of malignant neoplasm of prostate; Z99.81 Dependence on supplemental oxygen; E03.9 Hypothyroidism, unspecified; N40.0 Benign prostatic hyperplasia without lower urinary tract symptoms; G47.419 Narcolepsy without cataplexy; I48.0 Paroxysmal atrial fibrillation; E78.5 Hyperlipidemia, unspecified; Z86.16 Personal history of COVID-19; G47.33 Obstructive sleep apnea (adult) (pediatric); I25.10 Atherosclerotic heart disease of native coronary artery without angina pectoris; Z98.1 Arthrodesis status; I48.91 Unspecified atrial fibrillation; I25.2 Old myocardial infarction; E66.9 Obesity, unspecified
CPT/HCPCS: 36415; 36416; 70450; 70496; 70498; 80053; 80061; 80306; 81001; 82962; 83036; 83735; 85025; 85610; 85730; 92507; 92523; 92610; 93005; 93306; 94664; 96374; 97110; 97116; 97162; 97165; 99291; J3101; J3490; J7512; J9999

== ENCOUNTER → 2025-03-29 15:29 | Outpatient (BNVA) | payer MEDICARE, OTHER, SELFPAY | PROVIDERS: PCP Nurse Practitioner Family; Referring Provider Internal Medicine; Visit Provider Specialist | DX: I63.50 Cerebral infarction due to unspecified occlusion or stenosis of unspecified cerebral artery (principal) | CPT/HCPCS: 99205 ==

== ENCOUNTER → 2025-04-03 14:41 | Outpatient (BNVA) | payer MEDICARE, OTHER, SELFPAY | PROVIDERS: PCP Nurse Practitioner Family; Visit Provider Nurse Practitioner Family | DX: L82.1 Other seborrheic keratosis (principal); L21.8 Other seborrheic dermatitis; L72.0 Epidermal cyst; L91.8 Other hypertrophic disorders of the skin; D22.5 Melanocytic nevi of trunk; D48.5 Neoplasm of uncertain behavior of skin | CPT/HCPCS: 11102; 99204 ==

== ENCOUNTER → 2025-07-04 14:33 | Outpatient (BNVA) | payer MEDICARE, OTHER, SELFPAY | PROVIDERS: PCP Nurse Practitioner Family; Visit Provider Internal Medicine | DX: Z86.73 Personal history of transient ischemic attack (TIA), and cerebral infarction without residual deficits (principal); Z95.818 Presence of other cardiac implants and grafts; Z95.0 Presence of cardiac pacemaker; I11.0 Hypertensive heart disease with heart failure; I50.32 Chronic diastolic (congestive) heart failure | CPT/HCPCS: 99214 ==